=== PATIENT | female | born 1955 | race Caucasian/White ===

== ENCOUNTER 2016-12-01 05:28 | Day surgery (SDC) | payer OTHER ==
[~2016-12-01] VITALS: Ht 154.9 cm; Wt 49.5 kg
[~2016-12-01 05:28] MED LIST: ASPI81TA28 PO; CLOP1TAB15 PO; LACTATED RINGER'S 1000ML 1,000 ML IV SCH; LSN40 PO; LSX20 PO; NIFE30TA83 PO; TPRSR/50 PO
[2016-12-01 05:51] VITALS: BP 131/64; PULSE 88; TEMP 37.1; O2SAT 98; Ht 154.9 cm; Wt 49.5 kg
[2016-12-01] MEDS ORDERED: LACTATED RINGER'S 1000ML 1,000 ML IV SCH (06:00)
[2016-12-01] MEDS ORDERED: MIDAZOLAM HCL 1 MG/ML 2ML VIAL ONE (06:45)
[2016-12-01] MEDS ORDERED: LIDOCAINE HCL 2% 2 ML VIAL (20MG/ML) ONE (06:45)
[2016-12-01] MEDS ORDERED: PROPOFOL IV EMULSION 10 MG/ML 20 ML VIAL IV ONE (06:45)
[2016-12-01] MEDS ORDERED: FENTANYL CITRATE INJ 50 MCG/1 ML 2 ML VIAL ONE (06:45)
[2016-12-01] MEDS ORDERED: LARYING-O-JET KIT (LTA) ONE ×2 (06:55)
--- NOTE | 2016-12-01 07:25 | History and Physical ---
History & Physical Date Dec 01, 2016. Chief Complaint Tumor in my throat with dryness. History of Present Illness This 61 year old woman was previously scheduled for direct laryngoscopy with biopsy for a right supraglottic lesion on 11/17/16, but her vascular surgeon asked that this be postponed as he was unable to assess and clear her until 11/23. She has been cleared. She has a full H & P in the EHR that has , so this one will be very brief. She continues to smoke and drink excessively. She was last seen by Dr. Trey Howell at his office on 10/22/16 and the full H & P from this visit is still available for review within [facility]. She describes no increased difficulty in breathing or swallowing. Past Medical/Surgical History Medical Problems: (1) Coronary artery disease (2) Hypertension Cervical disc disease. 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 Allergies Coded Allergies: Latex1 -Allergic Contact Dermititis (Verified Allergy, Intermediate, SKIN BLISTERS, 12/01/16) Acetaminophen (Unverified Adverse Reaction, Mild, AFFECTS LIVER FUNCTION, 12/01/16) Oxycodone (Unverified Adverse Reaction, Mild, VOMITING, 12/01/16) Home Medications Scheduled Aspirin (Aspirin Ec), 81 MG PO QAM Clopidogrel (Plavix), 75 MG PO QAM Furosemide (Furosemide), 20 MG PO QAM Lisinopril (Lisinopril), 20 MG PO QAM Metoprolol Succinate (Metoprolol Succinate ER), 100 MG PO QAM Nifedipine Ext Rel (Procardia Xl Ext Rel), 30 MG PO QAM Physical Examination Skin: warm/dry, no rash Eyes: normal inspection, EOMI, sclerae normal ENT: normal ENT inspection, pharynx normal Head: normocephalic, atraumatic Neck: supple, no adenopathy, trachea midline Respiratory/Chest: lungs clear, normal breath sounds, no respiratory distress Cardiovascular: regular rate, rhythm, no edema, no murmur Abdomen / GI: normal bowel sounds, non tender Back: normal inspection Extremities: normal inspection, normal range of motion Neurologic/Psych: no motor/sensory deficits, alert, normal reflexes, oriented x 3 Addiitonal Comments: Right supraglottic lesion. ASA Classification: ASA Class IV Plan of Treatment She will require direct laryngoscopy with biopsy. Anesthesia is aware of cardiac and vascular problems, and an A-line has already been placed.
[2016-12-01] MEDS ORDERED: ALBUT/IPRATROP 3MG/0.5MG NEB 3 ML VIAL ONE (07:27)
[2016-12-01] MEDS ORDERED: EpINEphrine HCL INJ 1 MG/ML 5ML SYRINGE ONE (07:38)
--- NOTE | 2016-12-01 08:08 | [facility] Post Operative Brief Note ---
Immediate Operative Summary Operative Date Dec 01, 2016. Pre-Operative Diagnosis Right supraglottic lesion Post-Operative Diagnosis Right supraglottic lesion Procedure(s) Performed Direct Laryngoscopy with Biopsy of Right Supraglottic Lesion Surgeon Dr. Howell Wet Chemistry Analyst Surgeon(s) None. Estimated Blood Loss 1 CC Findings Fungating right supraglottic mass not involving the right true vocal cord, but involving the right false cord from just 1-2 mm posterior to the epiglottis to 1 -2 mm from the vocal process and extending superiorly almost to the AE fold. Specimens Frozen Specimen: Right supraglottic mass, out of room at 0753 Permanent Specimen A: Right suprglottic mass Anesthesia General via ET intubation (#6 tube) Complication(s) None Disposition Surgical ICU
--- NOTE | 2016-12-01 08:18 | [facility] Operative Report ---
Operative Report Operative Date Dec 01, 2016. Pre-Operative Diagnosis Right supraglottic lesion Post-Operative Diagnosis Right supraglottic lesion Procedure(s) Performed Direct Laryngoscopy with Biopsy of Right Supraglottic Lesion Surgeon Dr. Howell Vp Respiratory Surgeon(s) None. Estimated Blood Loss 1 CC Findings A) Right supraglottic fungating lesion without involvement of the right true vocal cord. The tumor extends from 1-2 mm from the epiglottis anteriorly to 1- 2 mm from the vocal process posteriorly. The superior extent is to the AE fold. B) The tongue base, vallecula, epiglottis, piriform sinuses, post-cricoid area , and glottis are all without evidence of tumor. Specimens Frozen Specimen: Right supraglottic mass, out of room at 0753 Permanent Specimen A: Right suprglottic mass Anesthesia General via ET intubation (#6 tube) Complication(s) None Disposition Surgical ICU Indications 61 year old woman with right supraglottic mass first detected on CT scan and confirmed via flexible fiberoptic endoscopy on 10/22/16. Description of Procedure Following uneventful intubation with a #6 endotracheal tube, the patient was turned 90 degrees. The upper gums (she was edentulous for upper teeth) were protected with a rubber tooth guard. The anterior commissure laryngoscope was coated with KY jelly and easily positioned to view the following structures: A) Right supraglottic fungating lesion without involvement of the right true vocal cord. The tumor extends from 1-2 mm from the epiglottis anteriorly to 1- 2 mm from the vocal process posteriorly. The superior extent is to the AE fold. B) The tongue base, vallecula, epiglottis, piriform sinuses, post-cricoid area , and glottis are all without evidence of tumor. An upbiting and straight cupped forceps were used to obtain tissue for frozen and permanent sections. Frozen section confirmed high suspicion for squamous cell carcinoma. There was minimal bleeding, and the anterior commissure scope and rubber tooth guard were removed. There was no evident trauma to lower teeth, gums, or lips. Patient was extubated in the OR and transported to in no apparent distress and with no stridor. I attest to the content of the Intraoperative Record and any orders documented therein. Any exceptions are noted below.
[2016-12-01] MEDS ORDERED: SODIUM CHLORIDE 0.9% 1000ML 1,000 ML IV SCH (08:22)
--- NOTE | 2016-12-01 08:22 | Discharge Instructions ---
Discharge Instructions Date of Service Dec 01, 2016. 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 Discharge Goals Goal(s): Decrease discomfort Activity Recommendations Activity Limitations: resume your previous activity Lifting Limitations: none Exercise/Sports Limitations: none May Resume Sexual Activity: when tolerated Shower/Bathe: no limitations Driving or Machine Use: resume 1 day after discharge . Instructions / Follow-Up Instructions / Follow-Up Please call Dr. Howell's office on 12/02/16 to make an appointment for 12/09/16. Current Hospital Diet Patient's current hospital diet: Discharge Diet Recommended Diet: Full Liquid Diet Procedures Procedures Performed: Direct Laryngoscopy with Biopsy of Right Supraglottic Lesion Pending Studies Studies pending at discharge: no Medical Emergencies . Who to Call and When: Medical Emergencies: If at any time you feel your situation is an emergency, please call 911 immediately. . Non-Emergent Contact Non-Emergency issues call your: Primary Care Provider Call Non-Emergent contact if: you have a fever . . "Provider Documentation" section prepared by Trey Howell. . VTE Core Measure Inpt VTE Proph given/why not?: SCD's
[2016-12-01] MEDS ORDERED: ONDANSETRON INJ 2 MG/ML 2 ML VIAL IV PRN ×2 (08:30→09:00)
--- NOTE | 2016-12-01 08:56 | Anesthesiology Progress Note ---
Anesthesia Post Op Note Date & Time Dec 01, 2016 at 08:56 Vital Signs Pain Intensity: 0 Vital Signs Past 12 Hours Date Time Temp Pulse Resp B/P (MAP) Pulse Ox O2 Delivery O2 Flow Rate FiO2 12/01/16 08:52 36.6 12/01/16 08:41 83 16 12/01/16 08:41 83 16 118/95 88 12/01/16 08:36 16 12/01/16 08:36 86 16 122/91 12/01/16 08:31 85 18 147/73 95 12/01/16 08:31 85 18 12/01/16 08:26 87 17 12/01/16 08:26 87 17 139/66 95 12/01/16 08:25 151/71 12/01/16 08:22 138/103 12/01/16 08:21 94 17 100 12/01/16 08:21 93 17 12/01/16 08:17 83/49 12/01/16 08:16 142 17 100 12/01/16 08:16 84 17 12/01/16 08:11 84 19 131/50 97 12/01/16 08:11 84 19 12/01/16 08:08 90/60 12/01/16 08:07 80/59 12/01/16 08:06 82 12 100 12/01/16 08:06 82 12 12/01/16 08:06 36.7 82 16 90/60 100 Oxymask 10 12/01/16 05:51 37.1 88 20 131/64 (86) 98 Room Air Notes Mental Status: alert / awake / arousable, participated in evaluation Pt Amnestic to Procedure: Yes Nausea / Vomiting: adequately controlled Pain: adequately controlled Airway Patency, RR, SpO2: stable & adequate BP & HR: stable & adequate Hydration State: stable & adequate Anesthetic Complications: no major complications apparent The patient did well. She was hemodynamically stable throughout and is now awake and comfortable.
[2016-12-01] MEDS ORDERED: MEPERIDINE HCL 25 MG/ML CARP IV PRN (09:00)
[2016-12-01] MEDS ORDERED: FENTANYL CITRATE INJ 50 MCG/1 ML 2 ML VIAL IV PRN (09:00)
[2016-12-01] MEDS ORDERED: ATROPINE SULFATE 0.1 MG/ML 5ML SYR IV PRN (09:00)
[2016-12-01] MEDS ORDERED: NALOXONE HCL 0.4 MG/1 ML VIAL/CARP IV PRN (09:00)
[2016-12-01] MEDS ORDERED: LABETALOL HCL IV 5 MG/ML 20ML IV PRN (09:00)
[2016-12-01] MEDS ORDERED: FLUMAZENIL 0.1 MG/1 ML 10 ML VIAL IV PRN (09:00)
[2016-12-01] MEDS ORDERED: HYDROmorphone INJ 1 MG/ML SYR IV PRN (09:00)
[2016-12-01] MEDS ORDERED: PHENYLEPHRINE 100MCG/ML 5ML SYR IV PRN (09:00)
[2016-12-01] MEDS ORDERED: EpHEDrine SULFATE INJ 50 MG/ML AMP IV PRN (09:00)
[2016-12-01 09:05] VITALS: BP 102/52; PULSE 83; TEMP 37.2; O2SAT 98
[2016-12-01 09:35] VITALS: BP 112/66; PULSE 89; O2SAT 97
[2016-12-01 10:05] VITALS: BP 118/84; PULSE 90; TEMP 37.2; O2SAT 97
[2016-12-01] MEDS ORDERED: SUCCINYLCHOLINE 100MG/5ML SYR IV ONE (14:21)
[2016-12-01] MEDS ORDERED: DEXAMETHASONE SOD INJ 4 MG/ML VIAL ONE (14:21)
[2016-12-01] MEDS ORDERED: ONDANSETRON INJ 2 MG/ML 2 ML VIAL ONE (14:21)
[2016-12-17] MEDS ORDERED: CYCL5TAB PO (09:25)
[2016-12-17] MEDS ORDERED: HYDR1SOL30 PO (09:25)
== END 2016-12-01 10:10 | disposition home or self-care (01) ==
LOC: C.ACU 05:28
PROVIDERS: ATTEND Otolaryngology
DX: C32.1 Malignant neoplasm of supraglottis (principal); I25.10 Atherosclerotic heart disease of native coronary artery without angina pectoris; I10 Essential (primary) hypertension; I65.21 Occlusion and stenosis of right carotid artery; I65.02 Occlusion and stenosis of left vertebral artery; Z79.82 Long term (current) use of aspirin; Z79.02 Long term (current) use of antithrombotics/antiplatelets; Z79.899 Other long term (current) drug therapy

== ENCOUNTER → 2017-03-17 | Outpatient (CLI) | payer OTHER ==
[~2017-03-17] MED LIST changes: +ATV5X PO; +DRGTP12; +FENT25DI10 TD; +HYDR1SOL10 PO; -LACTATED RINGER'S 1000ML 1,000 ML IV SCH
[2017-03-17 13:40] VITALS: BP 107/71; PULSE 84; TEMP 36.9; O2SAT 100
--- NOTE | 2017-03-17 16:12 | Radiation Oncology Follow-Up ---
Radiation Oncology Follow-Up Date of Visit Mar 17, 2017. Reason For Visit One-month follow-up a cancer survivorship care plan Radiation Completion Date 02/17/17 Diagnosis (1) Carcinoma of supraglottis Status: Acute Onset Date: 12/01/2016 Histology Subtype: squamous cell carcinoma Stage: l Permanent Comment: Right ear discomfort Status post neck ultrasound 09/29/[address] 10/14/2016 Right supraglottic mass Status post direct laryngoscopy and biopsies 12/01/2016 Well-differentiated squamous cell carcinoma Status post PET/CT 12/16/2016 Clinical stage cT1 [id number] Status post completion of radiation therapy 02/17/2017. She received 6996 cGy Last Edited By: Samina Alaniz on Feb 25, 2017 11:41 History of Present Illness Ms. Hardy has a smoking history who recently started complaining of right ear pain for the last several months. She did complain of a nodule behind her ear so she was referred for an ultrasound of the right neck on 09/29/2016 which revealed no evidence of malignant disease. She then underwent a CT of the neck on 10/14/2016 which revealed mild thickening and enhancement of the supraglottic soft tissues as well as 80% narrowing of the right internal carotid artery. The patient was seen by Dr. Trey Howell from ENT and he did perform a NPL on 10/22/2016 which revealed a fungating lesion involving the right supraglottic larynx which extended from the epiglottis back towards the vocal process. Dr. Howell then brought the patient to the operating room for direct laryngoscopy with biopsy on 12/01/2016 which confirmed a well- differentiated invasive squamous cell carcinoma. The patient underwent a PET/ CT scan on 12/16/2016 which revealed an FDG avid lesion in the right supraglottic airway consistent with history of proven squamous cell carcinoma and no evidence of distant metastatic disease. Dr. Howell reviewed the pathology and imaging studies with Ms. Hardy in advise against surgical resection and recommended consideration of radiation therapy with or without chemotherapy. The patient is scheduled to see Dr. William Beckham for medical oncology on 12/23/2016 for a medical oncology consultation. We are now seeing the patient in consultation discuss role of radiation therapy. Status post completion of radiation therapy 02/17/2017. She received 6996 cGy. Interim History She has had steady improvement of her voice quality over the past few weeks. She denies dysphagia. She has a discomfort in the right neck below the ear. She gives a level III. Her appetite is good and weight is stable. She had been treated for thrush which she felt currently is controlled. Denies alteration of taste. She did require initiation of pain management while on treatment. She currently does not have a follow-up appointment with Dr. Howell. Allergies Coded Allergies: Latex1 -Allergic Contact Dermititis (Verified Allergy, Intermediate, SKIN BLISTERS, 01/08/17) Acetaminophen (Unverified Adverse Reaction, Mild, AFFECTS LIVER FUNCTION, 01/08/17) Oxycodone (Unverified Adverse Reaction, Mild, VOMITING, 01/08/17) Home Medications Scheduled Aspirin (Aspirin Ec), 81 MG PO QAM Clopidogrel (Plavix), 75 MG PO QAM Furosemide (Furosemide), 20 MG PO QPM Lisinopril (Lisinopril), 20 MG PO QAM Metoprolol Succinate (Metoprolol Succinate ER), 100 MG PO QAM Nifedipine Ext Rel (Procardia Xl Ext Rel), 30 MG PO QAM Scheduled PRN Fentanyl (Duragesic), 25 MCG TD Q72H PRN for Pain Hydrocodone-Acetaminophen (Hydrocodone/Acetami 7.5/325MG 15ML), 15 ML PO Q4-6H PRN Review of Systems Gastrointestinal: Symptoms: WNL Oral: Symptoms: Scant Saliva/Dry Mouth Other Oral Symptoms: Cracks in each corner of mouth;Using biotene;Altered taste persists; Respiratory: Symptoms: SOB With Exertion, Productive Cough Other Respiratory: Clear sputum; Urinary: Symptoms: WNL Skin: Symptoms: No Problems Other Skin Symptoms: Slight hyperpigmentation of anterior neck;Silvadene cr. PRN; Additional Notes: She completed a distress management report and answered "no" to all questions other than she is concerned about pain and her medical treatment choices. Pain management will be addressed today. Physical Exam Vital Signs Date Time Temp Pulse Resp B/P (MAP) Pulse Ox O2 Delivery O2 Flow Rate FiO2 03/17/17 13:40 36.9 84 12 107/71 100 Fatigue: None General Appearance: no apparent distress Eyes: normal inspection, EOMI ENT: normal ENT inspection, hearing grossly normal, TMs normal (minimal cerumen ), pharynx normal (mild white coat on tongue) Neck: no adenopathy, thyroid normal Respiratory/Chest: lungs clear, no respiratory distress, no accessory muscle use, + decreased breath sounds Cardiovascular: regular rate, rhythm, no gallop, no murmur Extremities: no pedal edema Neurologic/Psychiatric: no motor/sensory deficits, alert, normal mood/affect Skin: warm/dry Lymphatic: no adenopathy Pain Management Patient Reports Pain: Yes Pain Management Plan See assessment and plan. Laboratory Laboratory Results: were reviewed, and pertinent findings noted below Laboratory Comments: Test 03/17/17 14:40 Thyroid Stimulating Hormone (TSH) 0.760 uIu/ml (0.300-4.500) Pathology Pathology Results: not applicable Imaging Imaging Studies: not applicable Assessment & Plan Plan: Patient is also seen and examined by Dr. Beckham. We'll now decrease her fentanyl patch to 12 g per hour. She was given one box of 5 and no refill. We 'll plan that this medicine will then stop after this prescription; she was instructed that she will no longer recieve pain medications from our department after she completes this prescription due to the fact that her symptoms should have subsided. If she continues to require pain medications after she completes our prescriptions, she will need to see her PCP or pain management which we would be willing to assist her with getting the appointment. She was given 1 more prescription for hydrocodone AP 7.5/325, 15 mLs every 6 hours. The volume prescribed was 480 mL. They'll be no further refills on this medication. She has been instructed to make an appointment with ENT. She also needs to make an appointment to follow-up with vascular surgery. Her daughters here with her today and will help with setting up these arrangements. At the beginning of treatment her TSH was slightly abnormal. This was rechecked today. She'll be notified as to the results. We asked her to return to our office in 4 months. We'll plan to do an NPL examination at that time. Today we completed a cancer survivorship care plan. A copy of the document was given the patient. She was given a survivorship booklet. She may call our office if she has any questions or concerns in the interim. Assessment & Plan (Attending) ADDENDUM: I agree with note created by Samina Alaniz PA-C. I reviewed the patient's chart and information with her. I have examined and evaluated the patient. I reviewed relevant clinical information and answered the patient's and /or family's questions. SALES ADVISOR Total Time In Follow-Up I spent 20 minutes speaking to the patient and performing examination. I spent 20 minutes reviewing information, preparing the survivorship document and completing this note. Total Time (Attending) In Follow-Up I spent 15 minutes examining and counseling the patient. SALES ADVISOR Copy To Trey Howell M.D.; Paola Wilson M.D.
== END | disposition home or self-care (01) ==
LOC: C.ONC 13:36
PROVIDERS: ATTEND Physician Assistant Medical
DX: Z08 Encounter for follow-up examination after completed treatment for malignant neoplasm (principal); Z92.3 Personal history of irradiation; Z85.89 Personal history of malignant neoplasm of other organs and systems

== ENCOUNTER → 2017-06-25 | Outpatient (CLI) | payer OTHER ==
[~2017-06-25] MED LIST changes: -ATV5X PO; -DRGTP12; -FENT25DI10 TD; -HYDR1SOL10 PO; -LSN40 PO; +OPTIRAY 320 IV PRN
--- NOTE | 2017-06-25 12:48 | DIAGNOSTIC IMAGING REPORT ---
SOFT TISSUE NECK WITH CLINICAL HISTORY: 62 years-old Female presenting with right-sided neck cancer, pain in the left side around the ear, jaw, and neck. TECHNIQUE: Multidetector CT of the neck was performed after the administration of intravenous contrast. IV contrast: 94 mL of Optiray 320. A dose lowering technique was used consistent with the principles of ALARA (as low as reasonably achievable). COMPARISON: PET/CT from 12/16/2016. CT DOSE (mGy.cm): The estimated cumulative dose is 1447.07. FINDINGS: Lens Assistant topogram: Unremarkable. Apposition of the vocal folds may be due to phonation though there is asymmetric enhancement of the right glottis (series 5 image 241). There is no effacement of the preepiglottic fat. The paraglottic fat is also grossly preserved. No effacement of the valleculae. Piriform sinuses symmetric. No erosion of the thyroid or cricoid cartilage. Superficial soft tissues along the anterior neck demonstrate mild infiltration and mild skin thickening. This tracks along the superficial and deep aspects of the platysma, likely indicating post radiation change. No lymphadenopathy. Aerated secretions in the left maxillary sinus with mild mucosal thickening in ethmoid air cells. Limited intracranial dilation within normal limits. Orbits normal. Vasculature patent though significant calcified atherosclerotic plaque burden evident in the bilateral common and internal carotid arteries. This results in approximately 50% stenosis of the bilateral proximal ICAs. Emphysematous changes at the lung apices with mild smooth interlobular septal thickening. Degenerative changes of the cervical spine. IMPRESSION: 1. Apposition of the vocal folds may be due to phonation. However, suspicious asymmetric enhancement of the right glottis raising concern for a focal lesion in this site. This corresponds to the region of FDG avidity on prior PET from December. No lymphadenopathy. 2. Nonspecific superficial infiltration and skin thickening along the anterior neck may represent post radiation change. 3. Approximately 50% stenosis of the bilateral proximal internal carotid arteries. Electronically signed by: Gunner Mcgrath M.D. 06/25/2017 12:47 PM Dictated Date/Time: 06/25/2017 12:40 PM
--- NOTE | 2017-06-25 12:48 | DIAGNOSTIC IMAGING REPORT ---
HEAD CT WITH AND WITHOUT INTRAVENOUS CONTRAST HISTORY: Left-sided EAR PAIN, NECK PAIN TECHNIQUE: Multiaxial CT images of the head were performed both before and after the intravenous administration of contrast. COMPARISON STUDY: PET CT 12/16/2016. FINDINGS: Moderate mucosal thickening and a small amount of fluid and bubbly secretions within the left maxillary sinus. This is consistent with acute on chronic sinusitis. The mastoid air cells are clear. The ventricles and sulci are within normal limits for age. There is no mass, hematoma, midline shift, acute infarct. No abnormal enhancement within the brain. IMPRESSION: 1. No evidence for intracranial metastatic disease. 2. No acute intracranial abnormality. 3. Acute on chronic left maxillary sinusitis. Electronically signed by: Jesús Cohen M.D. 06/25/2017 12:47 PM Dictated Date/Time: 06/25/2017 12:41 PM
== END | disposition home or self-care (01) ==
LOC: C.CTS 11:47
PROVIDERS: ATTEND Physician Assistant Medical
DX: C32.1 Malignant neoplasm of supraglottis (principal); H92.01 Otalgia, right ear; M54.2 Cervicalgia; J01.01 Acute recurrent maxillary sinusitis

== ENCOUNTER → 2017-07-05 | Outpatient (CLI) | payer OTHER ==
[~2017-07-05] MED LIST changes: -OPTIRAY 320 IV PRN
--- NOTE | 2017-07-05 12:52 | DIAGNOSTIC IMAGING REPORT ---
PET/CT SKULL-THIGH CLINICAL HISTORY: 62 years-old Female presenting with HEAD NECK CANCER, right supraglottic squamous cell carcinoma. TECHNIQUE: PET/CT was performed from the vertex through the proximal thighs following the intravenous administration of 12.271 mCi of F18-FDG. Blood glucose level 85 mg/dL. The injection was performed at 7:42 a.m. and imaging began at 9:[address] was performed for attenuation correction purposes and anatomic localization. COMPARISON: CTA neck from 06/25/2017 and PET/CT from 12/16/2016. CT DOSE (mGy.cm): The estimated cumulative dose is 207.29. FINDINGS: Head and neck: Apparent photopenia in the left parietal-occipital region. This does not have a correlate on recent CT head from 06/25/2017 and may represent a prominent sulcus in this region. There is mild FDG avidity in the region of the right glottis (max SUV 5.65, previously max SUV 6.74). FDG avidity extends to the posterior aspect of the glottis. There is mild stenosis of the glottis as seen on recent contrast enhanced CT of the neck. No FDG avid cervical lymphadenopathy. Chest: Normal thyroid and thoracic inlet. No FDG avid axillary, supraclavicular, or mediastinal lymphadenopathy. Evaluation of the jeanna on anatomic imaging limited without intravenous contrast. Atherosclerosis of the aorta. Normal heart size. Coronary artery calcification. No pericardial or pleural effusion. No FDG avid focal infiltrate or nodule. Airways patent. Abdomen and pelvis: Normal physiologic distribution of radiotracer in the gastrointestinal and genitourinary tracts. No FDG avid lymphadenopathy or mass lesion. Musculoskeletal: No FDG-avid or destructive osseous lesion. IMPRESSION: 1. Interval decrease in focal FDG avidity along the right glottis, which is concerning for residual disease. Direct visualization to be considered. No FDG avid lymphadenopathy or metastatic disease. Electronically signed by: Gunner Mcgrath M.D. 07/05/2017 12:51 PM Dictated Date/Time: 07/05/2017 12:28 PM
== END | disposition home or self-care (01) ==
LOC: C.PET 07:00
PROVIDERS: ATTEND Physician Assistant Medical
DX: C32.1 Malignant neoplasm of supraglottis (principal)

== ENCOUNTER 2017-10-10 02:16 | Emergency (ER) | payer OTHER ==
[~2017-10-10] VITALS: Ht 152.4 cm; Wt 44.4 kg
[~2017-10-10 02:16] MED LIST changes: +GABA-113 PO; +IBUP-103 PO
[2017-10-10 02:21] VITALS: TEMP 37.5; Ht 152.4 cm; Wt 44.4 kg
[2017-10-10] MEDS ORDERED: KETOROLAC TROMETHAMINE 60 MG/2 ML VIAL IM STA (03:23)
[2017-10-10] MEDS ORDERED: AMOXICILLIN/CLAVULANATE SUSP 400 MG/5 ML PO ONE (03:30)
[2017-10-10] MEDS ORDERED: AGMUDL4005 PO (03:48)
[2017-10-10 05:37] VITALS: BP 135/71; PULSE 96; O2SAT 97
--- NOTE | 2017-10-11 02:45 | EMERGENCY ROOM VISIT NOTE ---
History First contact with patient: 03:08 Chief Complaint: SORETHROAT Stated Complaint: SORETHROAT History of Present Illness The patient is a 62 year old female who presents to the Emergency Room with complaints of right-sided sore throat pain as well as right ear pain for the past several months. The patient has a history of throat cancer and completed radiation earlier in the year. She is followed very closely by the [facility], and has seen their cancer panel as well as her ENT multiple times. The patient was previously on fentanyl and liquid opioids for pain during the radiation treatment. The patient has subsequently been weaned off these medications. She currently follows with the pain clinic for her chronic pain. She has not had fevers or chills. No difficulty breathing from baseline. The patient has an upcoming appointment with her primary care physician in the next 2-3 days. She rates her current discomfort in 10/15. She states her symptoms worsened tonight, prompting her visit to the ER. Review of Systems More than 10 systems were reviewed and otherwise negative with the exception of history of present illness. Past Medical/Surgical History Medical Problems: (1) Coronary artery disease (2) Hypertension Family History FH: cancer FH: diabetes mellitus FH: heart disease FH: hypertension FH: lung disease Social History Smoking Status: Current Every Day Smoker Alcohol Use: heavy Marital Status: Housing Status: lives with significant other Occupation Status: unemployed Current/Historical Medications Scheduled Amoxicillin/Clavulanate Potas (Augmentin 400MG/5ML), 10 ML PO BID Aspirin (Aspirin Ec), 81 MG PO QAM Clopidogrel (Plavix), 75 MG PO QAM Furosemide (Furosemide), 20 MG PO QPM Gabapentin (Neurontin), 300 MG PO QPM Gabapentin (Neurontin), 600 MG PO BID Ibuprofen Tab (Advil), 400 MG PO TID Metoprolol Succinate (Metoprolol Succinate ER), 100 MG PO QAM Nifedipine Ext Rel (Procardia Xl Ext Rel), 30 MG PO QAM Physical Exam Vital Signs Date Time Temp Pulse Resp B/P (MAP) Pulse Ox O2 Delivery O2 Flow Rate FiO2 10/10/17 05:37 96 22 135/71 97 Room Air 10/10/17 04:37 97 20 137/74 96 Room Air 10/10/17 02:24 98 Room Air 10/10/17 02:21 37.5 90 138/88 91 Room Air Physical Exam VITALS: Vitals are noted on the nurse's note and reviewed by myself. Vital signs stable. GENERAL: Well-developed, well-nourished, white female, who is in no acute distress and resting comfortably. Patient is cooperative with the examination. HEAD: Normocephalic atraumatic. EARS: External ear normal. External auditory canals clear, tympanic membranes pearly leigh without erythema or effusion bilaterally. MOUTH: Mucous membranes moist. Tonsils are not enlarged. Pharynx without erythema, blood, or exudate. Uvula midline. Airway patent. NECK: Supple without nuchal rigidity. No lymphadenopathy. No thyromegaly. Cervical spine is nontender. HEART: Regular rate and rhythm without murmurs gallops or rubs. LUNGS: Coarse wheezing and rhonchi throughout Medical Decision & Procedures Medications Administered Medications (Trade) Dose Ordered Sig/Pavithra Route Start Time Stop Time Status Last Admin Dose Admin Amoxicillin/ Clavulanate Potassium (Augmentin Susp) 10 ml NOW ONCE PO 10/10/17 03:30 10/10/17 03:31 DC 10/10/17 04:32 10 ML Ketorolac Tromethamine (Toradol Inj) 60 mg NOW STAT IM 10/10/17 03:23 10/10/17 03:27 DC 10/10/17 04:32 60 MG ED Course Physical exam and history were performed. Nursing notes, EMR, and Medication List were personally reviewed. Patient appears to have right-sided neck and ear pain that is evidently worse tonight than normal. The patient is followed through the [facility], and I was able to review her [facility] records. The patient does have an upcoming appointment with her ENT. 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 The patient is no longer on opioids, and pain management will not prescribe these to her as she has a history of chronic alcoholism. Despite her history of throat cancer she continues to smoke tobacco on a daily basis. She was recently started on gabapentin. On examination the patient appears nontoxic and essentially at her baseline. She has had multiple recent imaging studies including PET scans that decreased my suspicion for a return of her cancer. This seems to be most in correlation with her chronic pain, and she is quite frustrated that they are taking her off the opioids. I discussed options of care with the patient, who evidently has a hard time swallowing pills. I did give her IM Toradol here in the department, which did significantly help her discomfort. I will also give the patient a short course of Augmentin to help cover for occult infection such as sinusitis. The patient was asked to keep her upcoming appointments with her specialists. She was otherwise invited back to the ER with any new, worsening, or concerning symptoms. The chart was completed utilizing [employer] Speech Voice Recognition Software. Grammatical errors, random word insertions, pronoun errors, and incomplete sentences are an occasional consequence of this system due to software limitations, ambient noise, and hardware issues. Any formal questions or concerns about the content, text, or information contained within the body of this dictation should be directly addressed to the provider for clarification. . Medical Decision Differential diagnosis: Etiologies such as viral syndrome, tonsillitis, streptococcal pharyngitis, mononucleosis, peritonsillar abscess, retropharyngeal abscess, otitis, pneumonia , influenza, as well as others were entertained. Impression Primary Impression: Sore throat Departure Information Dispostion Home / Self-Care Condition GOOD Prescriptions Amoxicillin/Clavulanate Potas (AUGMENTIN 400MG/5ML) 400 Mg/5 Ml Susp 10 ML PO BID for 7 Days, #140 ML Prov: Con Tracy PA-C 10/10/17 Referrals Paola Wilson M.D. (PCP) Forms HOME CARE DOCUMENTATION FORM, IMPORTANT VISIT INFORMATION Patient Instructions My [facility] Additional Instructions You were seen and evaluated today on an emergency basis only. This is not a substitute for, or an effort to provide, complete comprehensive medical care. It is not possible to recognize and treat all injuries or illnesses in a single emergency department visit. For this reason it is recommended that you followup with your primary care physician and ENT for ongoing care and evaluation. Call tomorrow morning to help make the appropriate appointments. Continue your pain medications as previously instructed. Follow with your specialists for this. Take Augmentin 10 mL's twice daily for the next 7 days. You are welcome to return to the emergency department anytime with new, worsening, or concerning symptoms.
== END 2017-10-10 05:39 | disposition home or self-care (01) ==
LOC: EDBD 02:16 → C.EDB 02:17
DX: R07.0 Pain in throat (principal); H92.01 Otalgia, right ear; I10 Essential (primary) hypertension; I25.10 Atherosclerotic heart disease of native coronary artery without angina pectoris; Z85.819 Personal history of malignant neoplasm of unspecified site of lip, oral cavity, and pharynx; Z79.82 Long term (current) use of aspirin; Z79.899 Other long term (current) drug therapy

== ENCOUNTER 2017-10-20 00:56 | Emergency (ER) | payer OTHER ==
[~2017-10-20] VITALS: Ht 152.4 cm; Wt 44.6 kg
--- NOTE | 2017-10-20 01:07 | EMERGENCY ROOM VISIT NOTE ---
History Report prepared by Otto: Dharmesh Flaherty Under the Supervision of: Dr. Adamaris Donnelly D.O. First contact with patient: 00:58 Chief Complaint: FALL Stated Complaint: ARM PAIN/FALL History of Present Illness The patient is a 62 year old female who presents to the Emergency Room with complaints of constant right shoulder pain following a fall that occurred tonight. The patient states that she was walking to the kitchen tonight and became lightheaded. She notes that when she became lightheaded, she lost her balance and fell. She reports that she did not lose consciousness during the fall and she states that she is unsure if she hit her head. She also complains of right knee pain. She denies any right elbow pain, right forearm pain, and any other pain. She rates her shoulder pain as an 8/10. The patient notes that she did not take anything for her pain today. She reports that she normally has no pulse and blood pressure in her right arm. Per EMS, the patient drinks alcohol frequently. Source of History: patient, EMS Onset: tonight Position: shoulder (right) Symptom Intensity: 8/10 Timing: constant Associated Symptoms: No LOC Note: The patient also complains of lightheadedness and right knee pain. She denies any right elbow pain, right forearm pain, and any other pain. Review of Systems See HPI for pertinent positives & negatives. A total of 10 systems reviewed and were otherwise negative. Past Medical & Surgical Medical Problems: (1) Coronary artery disease (2) Hypertension Family History FH: cancer FH: diabetes mellitus FH: heart disease FH: hypertension FH: lung disease Social History Smoking Status: Current Every Day Smoker Alcohol Use: heavy Marital Status: Housing Status: lives with family Occupation Status: employed Current/Historical Medications Scheduled Aspirin (Aspirin Ec), 81 MG PO QAM Clopidogrel (Plavix), 75 MG PO QAM Furosemide (Furosemide), 20 MG PO QPM Gabapentin (Neurontin), 800 MG PO TID Ibuprofen Tab (Advil), 400 MG PO TID Metoprolol Succinate (Metoprolol Succinate ER), 100 MG PO QAM Nifedipine Ext Rel (Procardia Xl Ext Rel), 30 MG PO QAM Scheduled PRN Albuterol Hfa (Ventolin Hfa), 2 PUFFS INH Q6H PRN for SOB/Wheezing Allergies Coded Allergies: Latex1 -Allergic Contact Dermititis (Verified Allergy, Intermediate, SKIN BLISTERS, 10/20/17) Acetaminophen (Unverified Adverse Reaction, Mild, AFFECTS LIVER FUNCTION, 10/20/17) Oxycodone (Unverified Adverse Reaction, Mild, VOMITING, 10/20/17) Physical Exam Vital Signs Date Time Temp Pulse Resp B/P (MAP) Pulse Ox O2 Delivery O2 Flow Rate FiO2 10/20/17 06:29 71 16 124/62 98 10/20/17 05:30 62 16 114/52 97 Room Air 10/20/17 03:36 69 16 111/53 98 Room Air 10/20/17 02:16 72 16 132/88 98 Room Air 10/20/17 01:09 66 10/20/17 01:09 36.8 67 18 124/56 96 Room Air Physical Exam GENERAL: alert, well appearing, well nourished, no distress, non-toxic, appears older than stated age, poor dentition. Dysphonia noted which the patient states is chronic due to prior throat cancer and subsequent surgery. HEAD: normal cephalic, atraumatic EYE EXAM: normal conjunctiva, PERRL and EOM's grossly intact OROPHARYNX: no exudate, no erythema, lips, buccal mucosa, and tongue normal and mucous membranes are moist. No mucocutaneous lesions. EARS: TMs clear b/l NECK: supple, no nuchal rigidity, no adenopathy, non-tender CHEST: stable to compression anteriorly and posteriorly LUNGS: clear to auscultation. Normal chest wall mechanics. Diminished breath sounds, no wheezes, rhonchi, and rales. HEART: no murmurs, S1 normal and S2 normal ABDOMEN: abdomen soft, non-tender, normo-active bowel sounds, no masses, no rebound or guarding. PELVIS: stable to compression anteriorly and posteriorly BACK: Back is symmetrical on inspection and there is no deformity, no midline tenderness, no CVA tenderness. UPPER EXTREMITIES: Decreased radial pulse which patient states is known and chronic, normal sensory exam, no bony tenderness to right wrist and right elbow , contusion noted to the proximal right upper extremity, tenderness to palpation in the area of the contusion, no obvious deformity at the shoulder, mild tenderness with palpation over humeral head, no tenderness along distal clavicle or AC joint. LOWER EXTREMITIES: full active and passive range of motion of all joints without tenderness to palpation. No deformities, normal pulses, small superficial abrasion and contusion noted to the right prepatellar region, right arm in TEE splint and sling and swathe from EMS. NEURO EXAM: Normal sensorium, cranial nerves II-XII grossly intact, normal speech, no gross weakness of arms, no gross weakness of legs. GCS: 15. Medical Decision & Procedures ER Provider Diagnostic Interpretation: Radiology results have been interpreted and reviewed by me. CHEST X-RAY: No cardiomegaly, effusions, wide mediastinum, focal consolidation, pneumothorax , and obvious rib fracture. PELVIS X-RAY: No acute fracture or dislocation. SHOULDER X-RAY: Distal clavicle fracture with mild displacement. No fracture of humeral head. No dislocation. HUMERUS X-RAY: No fracture or dislocation. Radiology results have been interpreted by the radiologist and reviewed by me. CT HEAD: Compared to 06/25/2017. No intracranial hemorrhage or skull fracture. Radiologist: Sandra Caba M.D. CT C SPINE: Compared to 10/14/2016. Degenerative changes without evidence of acute fracture. Soft tissue thickening in the glottic region, more prominent on the left. Nonemergent contrast- enhanced CT can further assess if indicated. Subcutaneous stranding in the anterior neck. Radiologist: Sandra Caba M.D. Laboratory Results 10/20/17 01:19 Red Blood Count 3.73, Mean Corpuscular Volume 92.0, Mean Corpuscular Hemoglobin 32.4, Mean Corpuscular Hemoglobin Concent 35.3, Mean Platelet Volume 9.1, Neutrophils (%) (Auto) 76.4, Lymphocytes (%) (Auto) 11.5, Monocytes (%) (Auto) 10.5, Eosinophils (%) (Auto) 1.2, Basophils (%) (Auto) 0.3, Neutrophils # (Auto ) 5.53, Lymphocytes # (Auto) 0.83, Monocytes # (Auto) 0.76, Eosinophils # (Auto ) 0.09, Basophils # (Auto) 0.02 10/20/17 01:19 Test 10/20/17 01:19 10/20/17 04:24 10/20/17 05:35 White Blood Count 7.24 K/uL (4.8-10.8) Red Blood Count 3.73 M/uL (4.2-5.4) Hemoglobin 12.1 g/dL (12.0-16.0) Hematocrit 34.3 % (37-47) Mean Corpuscular Volume 92.0 fL (80-100) Mean Corpuscular Hemoglobin 32.4 pg (25-34) Mean Corpuscular Hemoglobin Concent 35.3 g/dl (32-36) Platelet Count 298 K/uL (130-400) Mean Platelet Volume 9.1 fL (7.4-10.4) Neutrophils (%) (Auto) 76.4 % Lymphocytes (%) (Auto) 11.5 % Monocytes (%) (Auto) 10.5 % Eosinophils (%) (Auto) 1.2 % Basophils (%) (Auto) 0.3 % Neutrophils # (Auto) 5.53 K/uL (1.4-6.5) Lymphocytes # (Auto) 0.83 K/uL (1.2-3.4) Monocytes # (Auto) 0.76 K/uL (0.11-0.59) Eosinophils # (Auto) 0.09 K/uL (0-0.5) Basophils # (Auto) 0.02 K/uL (0-0.2) RDW Standard Deviation 38.9 fL (36.4-46.3) RDW Coefficient of Variation 11.5 % (11.5-14.5) Immature Granulocyte % (Auto) 0.1 % Immature Granulocyte # (Auto) 0.01 K/uL (0.00-0.02) Prothrombin Time 10.7 SECONDS (9.0-12.0) Prothromb Time International Ratio 1.0 (0.9-1.1) Est Creatinine Clear Calc Drug Dose 66.7 ml/min Estimated GFR () 111.6 Estimated GFR (Non- 96.3 BUN/Creatinine Ratio 15.1 (10-20) Calcium Level 8.2 mg/dl (8.5-10.1) Total Bilirubin 0.3 mg/dl (0.2-1) Aspartate Amino Transf (AST/SGOT) 32 U/L (15-37) Alanine Aminotransferase (ALT/SGPT) 19 U/L (12-78) Alkaline Phosphatase 101 U/L (45-117) Troponin I < 0.015 ng/ml (0-0.045) Total Protein 7.0 gm/dl (6.4-8.2) Albumin 3.1 gm/dl (3.4-5.0) Globulin 3.9 gm/dl (2.5-4.0) Albumin/Globulin Ratio 0.8 (0.9-2) Lipase 126 U/L (73-393) Ethyl Alcohol mg/dL 120.5 mg/dl (0-3) Bedside Hemoglobin 12.6 g/dl (12.0-16.0) Bedside Hematocrit 37 % (37-47) Bedside Sodium 126 mEq/L (135-144) Bedside Potassium 4.2 mEq/L (3.3-5.0) Bedside Chloride 83 mEq/L (101-112) Bedside Total CO2 31 mEq/l (24-31) Anion Gap 17.0 mmol/L (16-25) Bedside Blood Urea Nitrogen 8 mg/dl (7-18) Bedside Creatinine 0.6 mg/dl (0.6-1.3) Bedside Glucose (other) 83 mg/dl (70-99) Bedside Ionized Calcium (Griffin) 1.09 mmol/l (1.12-1.32) Urine Color YELLOW Urine Appearance CLEAR (CLEAR) Urine pH 6.5 (4.5-7.5) Urine Specific Dickens 1.006 (1.000-1.030) Urine Protein NEG (NEG) Urine Glucose (UA) NEG (NEG) Urine Ketones NEG (NEG) Urine Occult Blood NEG (NEG) Urine Nitrite NEG (NEG) Urine Bilirubin NEG (NEG) Urine Urobilinogen NEG (NEG) Urine Leukocyte Esterase NEG (NEG) Laboratory results per my review. Medications Administered Medications (Trade) Dose Ordered Sig/Pavithra Route Start Time Stop Time Status Last Admin Dose Admin Fentanyl Citrate (Fentanyl Inj) 25 mcg NOW STAT IV 10/20/17 02:20 10/20/17 02:23 DC 10/20/17 02:34 25 MCG Sodium Chloride 500 ml @ 999 mls/hr Q31M STAT IV 10/20/17 02:36 10/20/17 03:06 DC 10/20/17 02:36 999 MLS/HR Thiamine HCl (Vitamin B-1 Tab) 100 mg NOW STAT PO 10/20/17 02:38 10/20/17 02:40 DC 10/20/17 03:33 100 MG Folic Acid (Folvite Tab) 1 mg NOW STAT PO 10/20/17 02:38 10/20/17 02:40 DC 10/20/17 03:33 1 MG Sodium Chloride 500 ml @ 999 mls/hr Q31M STAT IV 10/20/17 04:17 10/20/17 04:47 DC 10/20/17 04:57 999 MLS/HR ECG Per My Interpretation Indication: back/shoulder pain Rate (beats per minute): 67 Rhythm: sinus rhythm Findings: Q waves (in V1-V3), no acute ischemic change, other (Normal axis, normal intervals) ED Course 0100: The patient was evaluated in room B4. A complete history and physical exam was performed. 0220: Fentanyl Citrate 25mcg IV 0236: Sodium Chloride 500 ml @ 999 mls/hr IV 0238: Folic Acid 1mg PO, Thiamin HCl 100mg PO 0305: I reevaluated and updated the patient on her results. She called her and asked that I explain results to him as well. 0417: Sodium Chloride 500 ml @ 999 mls/hr IV 0456: Upon reevaluation, the patient is feeling better. I discussed the findings and the treatment plan with the patient. She verbalizes agreement and understanding. The patient was discharged home. Medical Decision Differential diagnosis: Etiologies such as fracture, dislocation, intra-abdominal, pneumothorax, intrathoracic , intracranial, neurologic, as well as other traumatic pathologies were entertained. Patient here with close head injury secondary to fall as well as distal right clavicle fracture. Mild displacement noted. Patient kept in sling and advised to follow-up with orthopedics closely. No other acute traumatic injury noted. Small abrasion noted at right knee however patient with full range of motion and no, as well as no joint effusion. I do not suspect an occult fracture or additional significant injury. Patient with no other complaints while she was monitored here as a precaution. Patient was clinically sober however had elevated blood alcohol level consistent with her chronic usage. Patient also found to have hyponatremia which she has had previously including done at this level. Patient was given a small amount of IV fluids and multivitamins. Repeat chemistry panel showed sodium level improved. Discussed with patient close recheck of this with her family doctor. I suspect this may be a beer drinkers [place]. Patient ambulatory here with a steady gait while using single arm to help steady her. Patient had normal pulse motor and sensation distally. No other distal right upper extremity pain with palpation, trauma, no deformity. Patient is right-hand dominant unfortunately which will limit her ability to perform ADLs in the short-term. Patient states she does live with her although he is a lower extremity amputee and has some difficulties himself. Patient states they do have other close family and friends that they rely on for assistance. Patient lists Tylenol as an allergy which she states, however given her chronic alcohol use, I do not feel it is safe to give her additional anti-inflammatories. I have a low suspicion for any additional occult traumatic injury or bleeding. Patient does use antiplatelets due to history of CAD and [place]. Discussed with patient symptoms to watch and return for. Encouraged her on multiple occasions to follow closely with orthopedics as well as her family doctor. Discussed all results and limitations given need for sling in the short-term. Patient stated she was comfortable going home, verbalized understanding of all instructions, and was agreeable with plan. Head Trauma GCS Score: 15 Medication Reconcilliation Current Medication List: was personally reviewed by me Blood Pressure Screening Patient's blood pressure: Elevated blood pressure Blood pressure disposition: Elevated BP felt to be situational Impression Primary Impression: Clavicle fracture Additional Impressions: Fall Contusion of multiple sites Hyponatremia Alcohol abuse Tobacco abuse Hypokalemia Scribe Attestation The scribe's documentation has been prepared under my direction and personally reviewed by me in its entirety. I confirm that the note above accurately reflects all work, treatment, procedures, and medical decision making performed by me. Departure Information Dispostion Home / Self-Care Referrals Paola Wilson M.D. (PCP) Forms HOME CARE DOCUMENTATION FORM, IMPORTANT VISIT INFORMATION Patient Instructions My [facility] Additional Instructions Please try to drink fluids and slowly cut back on your alcohol consumption. Please also consider quitting smoking. You will need to follow-up with orthopedics regarding your collarbone fracture. Please wear the sling until your are otherwise advised by the orthopedic surgeon. Please use tylenol or ibuprofen for pain. Please call and follow-up with your family doctor to recheck your sodium. Your sodium level tonight was low but did improve with fluids. Please also have them recheck your neck given your history of cancer. Please use extra caution with moving/walking given your limitations of only having your non dominant hand to help steady you and your chronic medical conditions. Please continue your other routine medications as prescribed. If you have any other new or concerning symptoms including headaches, dizziness, vision changes, numbness/tingling, chest pain, trouble breathing, or you have any other new symptoms, please return to the ER. Problem Qualifiers Primary Impression: Clavicle fracture Encounter type: initial encounter Clavicle location: lateral end Fracture type: closed Fracture alignment: displaced Laterality: right Qualified Codes: S42.031A - Displaced fracture of lateral end of right clavicle, initial encounter for closed fracture Additional Impressions: Fall Encounter type: initial encounter Qualified Codes: W19.XXXA - Unspecified fall, initial encounter
[2017-10-20 01:09] VITALS: TEMP 36.8; Ht 152.4 cm; Wt 44.6 kg
[2017-10-20 01:30] LABS: BASO % 0.3 %; BASO ABS # 0.02 K/uL (0-0.2); EOS % 1.2 %; EOS ABS # 0.09 K/uL (0-0.5); HEMATOCRIT 34.3 % (37-47); HEMOGLOBIN 12.1 g/dL (12.0-16.0); IG# 0.01 K/uL (0.00-0.02); LYMPH % 11.5 %; LYMPH ABS # 0.83 K/uL (1.2-3.4); MEAN CORPUSCULAR HEMOGLOBIN 32.4 pg (25-34); MEAN CORPUSCULAR HGB CONC 35.3 g/dl (32-36); MEAN PLATELET VOLUME 9.1 fL (7.4-10.4); MONO % 10.5 %; MONO ABS # 0.76 K/uL (0.11-0.59); NEUT % 76.4 %; NEUT ABS # 5.53 K/uL (1.4-6.5); PLATELET COUNT 298 K/uL (130-400); RED CELL DISTRIBUTION WIDTH CV 11.5 % (11.5-14.5); RED CELL DISTRIBUTION WIDTH SD 38.9 fL (36.4-46.3); WHITE BLOOD COUNT 7.24 K/uL (4.8-10.8)
[2017-10-20] MEDS ORDERED: GABA800T PO (01:50)
[2017-10-20] MEDS ORDERED: VNTHFA/IN INH (01:51)
[2017-10-20 01:52] LABS: ALBUMIN 3.1 gm/dl (3.4-5.0); ALKALINE PHOSPHATASE 101 U/L (45-117); ALT/SGPT 19 U/L (12-78); AST/SGOT 32 U/L (15-37); BLOOD UREA NITROGEN 9 mg/dl (7-18); CALCIUM 8.2 mg/dl (8.5-10.1); CARBON DIOXIDE 27 mmol/L (21-32); GLUCOSE 74 mg/dl (70-99); LIPASE 126 U/L (73-393); POTASSIUM 3.4 mmol/L (3.5-5.1); SODIUM 121 mmol/L (136-145)
[2017-10-20] MEDS ORDERED: FENTANYL CITRATE INJ 50 MCG/1 ML 2 ML VIAL IV STA (02:20)
[2017-10-20] MEDS ORDERED: SODIUM CHLORIDE 0.9% 500ML 500 ML IV STA ×2 (02:36→04:17)
[2017-10-20] MEDS ORDERED: THIAMINE HCL 100 MG TAB PO STA (02:38)
[2017-10-20 04:37] LABS: ISTAT CREATININE 0.6 mg/dl (0.6-1.3); ISTAT IONIZED CALCIUM 1.09 mmol/l (1.12-1.32); ISTAT POTASSIUM 4.2 mEq/L (3.3-5.0)
[2017-10-20 06:29] VITALS: BP 124/62; PULSE 71; O2SAT 98
--- NOTE | 2017-10-20 07:15 | DIAGNOSTIC IMAGING REPORT ---
CT SCAN OF THE BRAIN WITHOUT IV CONTRAST CLINICAL HISTORY: Trauma. COMPARISON STUDY: CT of the brain dated 06/25/2017. TECHNIQUE: Unenhanced axial CT scan of the brain is performed from the vertex to the skull base. A dose lowering technique was utilized adhering to the principles of ALARA. CT DOSE: 638.56 mGycm FINDINGS: Brain parenchyma: There are age-related involutional changes noting mild subcortical and periventricular microangiopathic change. There is no hemorrhage, mass effect, or evidence of acute territorial ischemia by CT criteria. Champagne-white matter is preserved. No extra-axial fluid collection is seen. Ventricles, sulci, cisterns: Prominent secondary to involutional change. Intracranial vasculature: There is atherosclerotic calcification of the cavernous carotid and vertebral arteries. Calvarium: The skeletal structures are osteopenic. No depressed calvarial fracture is seen. Sinuses and mastoids: The visualized paranasal sinuses are clear. The mastoid air cells are well pneumatized. Orbits: The bony orbits are grossly intact. There is a right ocular lens implant. IMPRESSION: There is no hemorrhage, mass effect, or evidence of acute territorial ischemia by CT criteria. Electronically signed by: Anurag Harris M.D. 10/20/2017 7:13 AM Dictated Date/Time: 10/20/2017 7:11 AM
--- NOTE | 2017-10-20 07:24 | DIAGNOSTIC IMAGING REPORT ---
CERVICAL SPINE W/O CLINICAL HISTORY: 62 years-old Female presenting with trauma. TECHNIQUE: Multidetector CT of the cervical spine was performed without the use of intravenous contrast. IV contrast: None. A dose lowering technique was used consistent with the principles of ALARA (as low as reasonably achievable). COMPARISON: CTA neck from 06/25/2017. CT DOSE (mGy.cm): The estimated cumulative dose is 392.16 mGycm. 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 Effacement of the performed sinuses with soft tissue thickening of the bilateral area epiglottic folds more prominently on the left. This is incompletely evaluated without intravenous contrast. Normal cervical lordosis. Vertebral bodies maintain normal height and alignment. Intervertebral disc height loss noted mildly at C4-5 through C6-7, where there are small disc osteophyte complexes. No significant posterior bony spurring. Uncovertebral hypertrophy results in osseous neural foraminal narrowing at C4-5 greater on the right and more significantly at C5-6. No acute fracture or subluxation. Endplate changes related to degenerative disc disease evident at C5-6. Skull base intact. 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 Paraspinal musculature normal. Atherosclerosis noted. No gross evidence of lymphadenopathy allowing for noncontrast technique. Lung apices clear. IMPRESSION: 1. No acute osseous injury of the cervical spine. 2. Multilevel degenerative changes. 3. Soft tissue thickening of the aryepiglottic folds greater on the left. Given the patient's clinical history of head and neck cancer, clinical correlation is advised. Electronically signed by: Gunner Mcgrath M.D. 10/20/2017 7:23 AM Dictated Date/Time: 10/20/2017 7:13 AM
--- NOTE | 2017-10-20 07:30 | DIAGNOSTIC IMAGING REPORT ---
SINGLE VIEW CHEST CLINICAL HISTORY: Trauma. FINDINGS: An AP, portable, upright chest radiograph is compared to study dated 01/08/2017. The examination is degraded by portable technique, apical lordotic positioning, and patient rotation. The cardiomediastinal silhouette is unremarkable noting atherosclerotic calcification of the thoracic aorta. A coronary artery stent is identified. Emphysema and chronic interstitial thickening are similar to previous. No airspace consolidation, large pleural effusion, or pneumothorax is seen. The skeletal structures are osteopenic. The bony thorax is grossly intact. Vascular calcifications are noted in the axillae. IMPRESSION: Emphysematous change with no acute cardiopulmonary abnormality. Electronically signed by: Anurag Harris M.D. 10/20/2017 7:28 AM Dictated Date/Time: 10/20/2017 7:27 AM
--- NOTE | 2017-10-20 07:39 | DIAGNOSTIC IMAGING REPORT ---
RIGHT SHOULDER 4 VIEWS; RIGHT HUMERUS 2 VIEWS CLINICAL HISTORY: Fall. Trauma. FINDINGS: 4 views of the right shoulder with AP and lateral views of the right humerus are obtained. No prior studies are available for comparison at the time of dictation. The skeletal structures are osteopenic. There is a comminuted and distracted fracture of the distal clavicle. There is superior distraction of the distal fragment by approximate 6 mm. Overlying soft tissue edema is noted. The acromioclavicular joint appears maintained. No additional fracture is identified at the shoulder joint. There is no radiographic evidence of humeral fracture on the humeral views. The glenohumeral joint appears maintained, and the elbow joint is grossly preserved. Calcific tendinopathy is noted in the right shoulder. There is atherosclerotic calcification of the right axillary artery. The partially imaged right lung parenchyma appears clear noting emphysematous change. IMPRESSION: 1. There is a comminuted and distracted fracture of the distal right clavicle as above. 2. No additional fracture is identified at the shoulder joint. 3. There is no radiographic evidence of right humeral fracture. 4. Calcific tendinopathy is noted. Electronically signed by: Anurag Harris M.D. 10/20/2017 7:37 AM Dictated Date/Time: 10/20/2017 7:34 AM
--- NOTE | 2017-10-20 07:48 | DIAGNOSTIC IMAGING REPORT ---
SINGLE VIEW PELVIS CLINICAL HISTORY: Trauma. Fall. FINDINGS: An AP pelvic radiograph is obtained. No prior studies are available for comparison at the time of dictation. The skeletal structures are osteopenic. There is no radiographic evidence of acute fracture involving the hips or bony pelvis. The sacroiliac joints are maintained. Minimal arthritic change is seen in the hips. The overlying soft tissues are normal in appearance. There are numerous pelvic phleboliths. Advanced atherosclerotic calcification is seen in the pelvic and femoral arteries. No bowel obstruction is identified. IMPRESSION: Osteopenia with no radiographic evidence of acute fracture involving the hips or bony pelvis. Electronically signed by: Anurag Harris M.D. 10/20/2017 7:47 AM Dictated Date/Time: 10/20/2017 7:46 AM
== END 2017-10-20 06:31 | disposition home or self-care (01) ==
LOC: EDBD 00:56 → C.EDB 00:57
DX: S42.001A Fracture of unspecified part of right clavicle, initial encounter for closed fracture (principal); S80.211A Abrasion, right knee, initial encounter; S40.021A Contusion of right upper arm, initial encounter; W19.XXXA Unspecified fall, initial encounter; E87.1 Hypo-osmolality and hyponatremia; Y90.6 Blood alcohol level of 120-199 mg/100 ml; R42 Dizziness and giddiness; I25.10 Atherosclerotic heart disease of native coronary artery without angina pectoris; I10 Essential (primary) hypertension; F17.200 Nicotine dependence, unspecified, uncomplicated; F10.129 Alcohol abuse with intoxication, unspecified; Z79.82 Long term (current) use of aspirin; Z79.899 Other long term (current) drug therapy; Z91.040 Latex allergy status; Z88.6 Allergy status to analgesic agent

== ENCOUNTER 2017-10-31 13:33 | Emergency (ER) | payer OTHER ==
[~2017-10-31 13:33] MED LIST changes: -ASPI81TA28 PO; -GABA-113 PO; +GABA800T PO; -LSX20 PO; -NIFE30TA83 PO; -TPRSR/50 PO; +VNTHFA/IN INH
[2017-10-31 13:40] VITALS: TEMP 37.1; Ht 154.9 cm
[2017-10-31] MEDS ORDERED: DEXAMETHASONE SOD INJ 4 MG/ML VIAL IV STA (14:15)
[2017-10-31] MEDS ORDERED: SODIUM CHLORIDE 0.9% 500ML 500 ML IV STA ×2 (14:15→16:22)
--- NOTE | 2017-10-31 14:30 | EMERGENCY ROOM VISIT NOTE ---
History First contact with patient: 13:53 Chief Complaint: THROAT PAIN/INJURY Stated Complaint: PAIN IN THROAT,DIFFICULTY SWALLOWING CAN'T EAT History of Present Illness The patient is a 62 year old female who presents to the Emergency Room with complaints of ongoing throat pain and weight loss over the last several months. The patient has a history of throat cancer. She completed radiation back in February. While she was on radiation, she did not have significant pain. It started shortly thereafter. The patient has seen numerous specialists both locally and in [place]. She is on ear nose and throat doctor in [place] on October 18. A scope was performed. She was told that her vocal cords are swollen. She is due for a swallow study tomorrow morning. The patient is not able to swallow her pills. Her typical diet consists of yogurt and liquids. She has lost 10 pounds in the last month. She denies any acute shortness of breath. Her breathing is at baseline. She has had a productive cough, but she cannot get the sputum up. She denies any abdominal pain. She has had some dysuria over the last several days. No fever, chills or flank pain. Review of Systems 10 system review performed and negative unless noted in HPI or below Past Medical/Surgical History Medical Problems: (1) Coronary artery disease (2) Hypertension Throat cancer History of alcoholism Family History FH: cancer FH: diabetes mellitus FH: heart disease FH: hypertension FH: lung disease Social History Smoking Status: Current Every Day Smoker Alcohol Use: heavy Marital Status: Housing Status: lives with family Occupation Status: employed Current/Historical Medications Scheduled Aspirin (Aspirin Ec), 81 MG PO QAM Clopidogrel (Plavix), 75 MG PO QAM Duloxetine Hcl (Cymbalta), 30 MG PO DAILY Furosemide (Furosemide), 20 MG PO QAM Gabapentin (Neurontin), 800 MG PO TID Metoprolol Succinate (Metoprolol Succinate ER), 100 MG PO QAM Nifedipine Ext Rel (Procardia Xl Ext Rel), 30 MG PO QAM Prednisolone (Prelone 15MG/5ML), 15 ML PO DAILY Scheduled PRN Albuterol Hfa (Ventolin Hfa), 2 PUFFS INH Q6H PRN for SOB/Wheezing Hydrocodone/Acetaminophen 5MG/325MG ([place] 5MG/325MG), 1 TABLET PO Q4-6HRS PRN for Pain Ibuprofen Tab (Advil), 200 MG PO UD PRN for Pain Physical Exam Vital Signs Date Time Temp Pulse Resp B/P (MAP) Pulse Ox O2 Delivery O2 Flow Rate FiO2 10/31/17 18:12 67 16 104/56 93 10/31/17 17:29 64 18 98/60 97 Room Air 10/31/17 15:22 72 16 131/65 93 Room Air 10/31/17 13:45 97 Room Air 10/31/17 13:40 37.1 107 16 120/80 97 Room Air Physical Exam VITALS: Vitals are noted on the nurse's note and reviewed by myself. Vital signs stable. GENERAL: 62-year-old female, appears older than stated age, chronically ill in appearance, very thin SKIN: The skin was dry HEAD: Normocephalic atraumatic. EYES:. Conjunctivae without injection, sclerae without icterus. Extraocular movements intact. MOUTH: Mucous membranes dry. No erythema or edema noted of the oropharynx. Uvula is midline. NECK: Tenderness to palpation over the trachea. Stridor noted. HEART: Regular rate and rhythm without murmurs gallops or rubs. LUNGS: Rhonchorous breath sounds with wheezing bilaterally. No tachypnea. ABDOMEN: Positive bowel sounds x 4.Soft, nontender, without organomegaly. No guarding or rebound tenderness. MUSCULOSKELETAL: Muscle wasting noted. No erythema or edema in the lower extremities bilaterally. Strength 5/5 throughout. NEURO: Patient was alert and oriented to person place and time. Normal sensation to touch. No focal neurological deficits. Medical Decision & Procedures ER Provider Diagnostic Interpretation: Soft tissue neck, chest x-ray IMPRESSION: Hyperinflation without acute process. The above report was generated using voice recognition software. It may contain grammatical, syntax or spelling errors. IMPRESSION: 1. Mid to lower prevertebral soft tissue tissues measure within the upper limits of normal. Additionally, there is mild thickening of the epiglottis. Differential considerations would include posttreatment related changes with acute infectious etiology also within the differential. Correlate with clinical exam and patient history. 2. Carotid arterial calcifications noted. 3. Emphysema. The above report was generated using voice recognition software. It may contain grammatical, syntax or spelling errors. Electronically signed by: Valente Tai M.D. 10/31/2017 2:48 PM Dictated Date/Time: 10/31/2017 2:42 PM Laboratory Results 10/31/17 14:42 Red Blood Count 4.03, Mean Corpuscular Volume 94.0, Mean Corpuscular Hemoglobin 32.5, Mean Corpuscular Hemoglobin Concent 34.6, Mean Platelet Volume 9.5, Neutrophils (%) (Auto) 79.9, Lymphocytes (%) (Auto) 10.8, Monocytes (%) (Auto) 7.4, Eosinophils (%) (Auto) 1.5, Basophils (%) (Auto) 0.3, Neutrophils # (Auto) 5.87, Lymphocytes # (Auto) 0.79, Monocytes # (Auto) 0.54, Eosinophils # (Auto) 0.11, Basophils # (Auto) 0.02 10/31/17 14:42 Test 10/31/17 14:42 10/31/17 15:20 White Blood Count 7.34 K/uL (4.8-10.8) Red Blood Count 4.03 M/uL (4.2-5.4) Hemoglobin 13.1 g/dL (12.0-16.0) Hematocrit 37.9 % (37-47) Mean Corpuscular Volume 94.0 fL (80-100) Mean Corpuscular Hemoglobin 32.5 pg (25-34) Mean Corpuscular Hemoglobin Concent 34.6 g/dl (32-36) Platelet Count 289 K/uL (130-400) Mean Platelet Volume 9.5 fL (7.4-10.4) Neutrophils (%) (Auto) 79.9 % Lymphocytes (%) (Auto) 10.8 % Monocytes (%) (Auto) 7.4 % Eosinophils (%) (Auto) 1.5 % Basophils (%) (Auto) 0.3 % Neutrophils # (Auto) 5.87 K/uL (1.4-6.5) Lymphocytes # (Auto) 0.79 K/uL (1.2-3.4) Monocytes # (Auto) 0.54 K/uL (0.11-0.59) Eosinophils # (Auto) 0.11 K/uL (0-0.5) Basophils # (Auto) 0.02 K/uL (0-0.2) RDW Standard Deviation 40.2 fL (36.4-46.3) RDW Coefficient of Variation 11.9 % (11.5-14.5) Immature Granulocyte % (Auto) 0.1 % Immature Granulocyte # (Auto) 0.01 K/uL (0.00-0.02) Anion Gap 5.0 mmol/L (3-11) Estimated GFR () 100.9 Estimated GFR (Non- 87.0 BUN/Creatinine Ratio 14.9 (10-20) Calcium Level 9.1 mg/dl (8.5-10.1) Urine Color YELLOW Urine Appearance CLEAR (CLEAR) Urine pH 6.5 (4.5-7.5) Urine Specific [place] 1.011 (1.000-1.030) Urine Protein NEG (NEG) Urine Glucose (UA) NEG (NEG) Urine Ketones NEG (NEG) Urine Occult Blood NEG (NEG) Urine Nitrite NEG (NEG) Urine Bilirubin NEG (NEG) Urine Urobilinogen NEG (NEG) Urine Leukocyte Esterase NEG (NEG) Medications Administered Medications (Trade) Dose Ordered Sig/Pavithra Route Start Time Stop Time Status Last Admin Dose Admin Sodium Chloride 500 ml @ 999 mls/hr Q31M STAT IV 10/31/17 14:15 10/31/17 14:45 DC 10/31/17 14:15 999 MLS/HR Dexamethasone Sodium Phosphate (Decadron Inj) 10 mg NOW STAT IV 10/31/17 14:15 10/31/17 14:19 DC 10/31/17 14:40 10 MG Morphine Sulfate (MoRPHine SULFATE INJ) 4 mg Q1H PRN IV 10/31/17 14:15 10/31/17 18:36 DC 10/31/17 16:32 4 MG Sodium Chloride 500 ml @ 999 mls/hr Q31M STAT IV 10/31/17 16:22 10/31/17 16:52 DC 10/31/17 16:32 999 MLS/HR Miscellaneous Medication (Gi Cocktail) 24 ml ONE STAT PO 10/31/17 16:46 10/31/17 16:47 DC 10/31/17 17:21 24 ML Lidocaine HCl (Viscous Lidocaine 2% Soln) 20 ml STK-MED ONCE .ROUTE 10/31/17 17:19 10/31/17 17:20 DC 10/31/17 17:21 10 ML Al Hydroxide/Mg Hydroxide (Maalox Susp) 30 ml STK-MED ONCE .ROUTE 10/31/17 17:19 10/31/17 17:20 DC 10/31/17 17:20 30 ML ED Course Patient was seen and examined Vital signs including blood pressure were reviewed medications list was verified with patient Labs were obtained, and a saline lock was established The patient was ordered morphine as needed and Decadron 10 mg IV. She was hydrated with 500 cc of normal saline. The patient was reexamined. She was resting slightly more comfortably. We discussed her workup. She voiced understanding. She was given an additional 500 cc of normal saline. She was also given a GI cocktail The case was also discussed with my supervising physician who evaluated the patient and is in agreement with my plan I reviewed discharge instructions the patient. They voiced understanding and had no further questions. Medical Decision Differential diagnosis: Malnutrition, dehydration, electrolyte imbalance, failure to thrive, pneumonia, UTI, airway compromise among others were considered This patient is a 62-year-old female that presents to the emergency department complaining of severe throat pain that has been chronic in nature causing her to not be able to take adequate oral intake. On exam, she did have a small amount of stridor noted. She was dehydrated. Her workup reveals hyponatremia, however this is improved when compared to her last visit. Imaging reveals mild swelling of the soft tissues suggesting possible epiglottitis. I believe this is chronic in nature. The patient just had a scope done by an ear nose and throat doctor 2 weeks ago. Her airway was patent. The patient was able to eat a sandwich and take some fluids yesterday. I believe that she is stable to be discharged home. The patient was treated with steroids and fluids in the emergency department. I do not suspect acute significant airway compromise. The patient was encouraged to take soft foods and thick liquids. She will follow-up with the speech therapist tomorrow. This chart was completed in part utilizing [employer] Speech Voice Recognition software. Attempts were made to minimize the grammatical errors, random word insertions, pronoun errors and incomplete sentences. Any formal questions or concerns about the content, text or information contained within the body of this dictation should be directly addressed to the provider for clarification. Medication Reconcilliation Current Medication List: was personally reviewed by me Blood Pressure Screening Patient's blood pressure: Normal blood pressure Impression Primary Impression: Dehydration Additional Impressions: Hyponatremia Throat pain Departure Information Dispostion Home / Self-Care Condition FAIR Prescriptions Prednisolone (PRELONE 15MG/5ML) 15 Mg/5 Ml Gill 15 ML PO DAILY for 8 Days, #100 ML take 15 ml daily x 3 days then 13 ml daily x 2 days then 10 ml daily x 2 days then 5 ml daily x 1 day Prov: Lorene Salinas PA-C 10/31/17 Referrals Paola Wilson M.D. (PCP) Patient Instructions My [facility] Additional Instructions You have been evaluated in the emergency department for severe throat pain and difficulty eating. Please take the entire course of liquid prednisone as prescribed I would recommend soft foods such as mashed potatoes. A cold milkshake also may help with your throat pain. Try to stay well-hydrated. Please follow-up with a speech therapist tomorrow as directed Please also follow-up with your primary care physician next week for recheck Do not hesitate to return to the emergency department with any new, worsening or concerning symptoms It was a pleasure participating in your care today Problem Qualifiers
[2017-10-31] MEDS: MoRPHine SULFATE 4 MG/ML 1 ML CARP\\VIAL IV PRN ×2 (14:40→16:32)
--- NOTE | 2017-10-31 14:43 | DIAGNOSTIC IMAGING REPORT ---
CHEST ONE VIEW PORTABLE HISTORY: 62 years-old Female cough wheezing ? aspiration acute cough and wheezing COMPARISON: Chest radiograph 10/20/2017, radiographs of the soft tissues of the neck 10/31/2017 TECHNIQUE: Portable AP view of the chest FINDINGS: Cardiac silhouette is within normal limits. Coronary arterial stent projects of the left heart border. Calcification of the aorta. Emphysema with hyperinflation. No pneumothorax, pleural effusion, focal airspace consolidation or overt pulmonary edema. Degenerative changes of the shoulders and spine. Subacute to chronic appearing fracture of the distal right clavicle is unchanged. IMPRESSION: Hyperinflation without acute process. The above report was generated using voice recognition software. It may contain grammatical, syntax or spelling errors. Electronically signed by: Valente Tai M.D. 10/31/2017 2:42 PM Dictated Date/Time: 10/31/2017 2:41 PM
[2017-10-31 14:49] LABS: BASO % 0.3 %; BASO ABS # 0.02 K/uL (0-0.2); EOS % 1.5 %; EOS ABS # 0.11 K/uL (0-0.5); HEMATOCRIT 37.9 % (37-47); HEMOGLOBIN 13.1 g/dL (12.0-16.0); IG# 0.01 K/uL (0.00-0.02); LYMPH % 10.8 %; LYMPH ABS # 0.79 K/uL (1.2-3.4); MEAN CORPUSCULAR HEMOGLOBIN 32.5 pg (25-34); MEAN CORPUSCULAR HGB CONC 34.6 g/dl (32-36); MEAN PLATELET VOLUME 9.5 fL (7.4-10.4); MONO % 7.4 %; MONO ABS # 0.54 K/uL (0.11-0.59); NEUT % 79.9 %; NEUT ABS # 5.87 K/uL (1.4-6.5); PLATELET COUNT 289 K/uL (130-400); RED CELL DISTRIBUTION WIDTH CV 11.9 % (11.5-14.5); RED CELL DISTRIBUTION WIDTH SD 40.2 fL (36.4-46.3); WHITE BLOOD COUNT 7.34 K/uL (4.8-10.8)
--- NOTE | 2017-10-31 14:49 | DIAGNOSTIC IMAGING REPORT ---
SOFT TISSUE NECK HISTORY: 62 years-old Female throat pain hx throat CA s/p radiation acute throat pain with history of head neck cancer and prior radiation therapy COMPARISON: Chest radiograph of same day, PET CT 07/05/2017, CT soft tissue neck 06/25/2017 TECHNIQUE: 2 views of the soft tissues of the neck. FINDINGS: Calcification of the bilateral carotid vasculature redemonstrated. There is prominence of the prevertebral tissues measuring up tor 2.1 cm at the level of C4. No opaque foreign bodies. Mild thickening about the epiglottis and area epiglottic folds. Nasopharynx appears patent. Elongated styloid processes. Mild intervertebral disc space narrowing at C4-C5 and C5-C6 with mild multilevel spondylitic spurring and facet arthropathy. Calcification of the aorta. Hyperinflated lungs with emphysema. Coronary arterial stent graft. Molar maxillary dental caries seen on the lateral view. IMPRESSION: 1. Mid to lower prevertebral soft tissue tissues measure within the upper limits of normal. Additionally, there is mild thickening of the epiglottis. Differential considerations would include posttreatment related changes with acute infectious etiology also within the differential. Correlate with clinical exam and patient history. 2. Carotid arterial calcifications noted. 3. Emphysema. The above report was generated using voice recognition software. It may contain grammatical, syntax or spelling errors. Electronically signed by: Valente Tai M.D. 10/31/2017 2:48 PM Dictated Date/Time: 10/31/2017 2:42 PM
[2017-10-31 15:06] LABS: BLOOD UREA NITROGEN 11 mg/dl (7-18); CALCIUM 9.1 mg/dl (8.5-10.1); CARBON DIOXIDE 35 mmol/L (21-32); CREATININE 0.73 mg/dl (0.60-1.20); GLUCOSE 93 mg/dl (70-99); POTASSIUM 3.7 mmol/L (3.5-5.1); SODIUM 127 mmol/L (136-145)
[2017-10-31] MEDS ORDERED: HYDR-5688 PO (15:30)
[2017-10-31] MEDS ORDERED: CYM/30 PO (15:30)
[2017-10-31] MEDS ORDERED: GI COCKTAIL PO STA (16:46)
[2017-10-31] MEDS ORDERED: ALUMINUM/MAGNESIUM SUSP 30 ML UDC ONE (17:19)
[2017-10-31] MEDS ORDERED: LIDOCAINE HCL 2% VISC SOLN 20 ML UDC ONE (17:19)
[2017-10-31] MEDS ORDERED: PRED15SY17 PO (17:49)
[2017-10-31 18:12] VITALS: BP 104/56; PULSE 67; O2SAT 93
[2017-10-31] MEDS ORDERED: ASPI81TA28 PO (19:38)
[2017-10-31] MEDS ORDERED: TPRSR/50 PO (20:10)
[2017-10-31] MEDS ORDERED: NIFE30TA83 PO (20:10)
[2017-10-31] MEDS ORDERED: LSX20 PO (20:10)
--- NOTE | 2017-11-01 17:07 | EMERGENCY ROOM VISIT NOTE ---
ED Visit Note First contact with patient: 13:53 I have personally seen and evaluated the patient with the PA, Lorene Salinas. Upon my evaluation the patient, she does have some difficulty with swallowing. She states she was able to eat a sandwich and have a drink last evening for dinner. She is having trouble swallowing her Gatorade currently. I have recommended a milk shake consistency diet. She will be placed on oral steroids. At this time I do not see an urgent need for medical admission as this has been an ongoing problem status post laryngeal cancer. There is no evidence of respiratory stridor. With the patient's history of radiation treatments, normal white count and afebrile state, I do believe an acute infectious epiglottitis is unlikely. I do suspect this is a post radiation issue. Patient has been evaluated by ENT and is scheduled for a swallow study tomorrow. She will be discharged to the care of her daughter and will return for worsening of symptoms or any medical concerns. I agree with the diagnosis and management decisions and have been personally involved in the case.
== END 2017-10-31 18:14 | disposition home or self-care (01) ==
LOC: C.EDB 13:34 → C.EDA 18:14
DX: E86.0 Dehydration (principal); E87.1 Hypo-osmolality and hyponatremia; R07.0 Pain in throat; R63.4 Abnormal weight loss; I10 Essential (primary) hypertension; F17.200 Nicotine dependence, unspecified, uncomplicated; Z85.819 Personal history of malignant neoplasm of unspecified site of lip, oral cavity, and pharynx; Z79.82 Long term (current) use of aspirin; Z79.899 Other long term (current) drug therapy

== ENCOUNTER 2017-11-01 14:09 | Emergency (ER) | payer OTHER ==
[~2017-11-01 14:09] MED LIST changes: +ASPI81TA28 PO; +CYM/30 PO; +HYDR-5688 PO; +LSX20 PO; +NIFE30TA83 PO; +PRED15SY17 PO; +TPRSR/50 PO
[2017-11-01 14:13] VITALS: TEMP 37.1; Ht 152.4 cm
[2017-11-01] MEDS ORDERED: SODIUM CHLORIDE 0.9% 1000ML 1,000 ML IV STA (14:45)
[2017-11-01] MEDS ORDERED: MoRPHine SULFATE 2 MG/ML CARP IV STA (14:45)
[2017-11-01] MEDS ORDERED: SODIUM CHLORIDE 0.9% 1000ML 250 ML IV STA (14:45)
--- NOTE | 2017-11-01 15:06 | DIAGNOSTIC IMAGING REPORT ---
CHEST ONE VIEW PORTABLE HISTORY: 62 years-old Female CHEST PAIN acute atypical chest pain COMPARISON: Chest radiograph 05/31/2017 TECHNIQUE: Portable AP view of the chest FINDINGS: Cardiomediastinal and hilar silhouettes are within normal limits. Coronary arterial stent graft projects over the left heart border. Calcification of the aorta. Emphysema with hyperinflation. There is no pneumothorax, pleural effusion, focal airspace consolidation or overt pulmonary edema. Calcific tendinosis about the bilateral shoulders. Arterial calcifications are seen about the bilateral axillary distributions. IMPRESSION: No acute process. The above report was generated using voice recognition software. It may contain grammatical, syntax or spelling errors. Electronically signed by: Valente Tai M.D. 11/01/2017 3:04 PM Dictated Date/Time: 11/01/2017 3:01 PM
--- NOTE | 2017-11-01 15:16 | EMERGENCY ROOM VISIT NOTE ---
History Report prepared by Otto: Gunner Lamb Under the Supervision of: Dr. Kevan Betancourt M.D. First contact with patient: 14:29 Chief Complaint: REFERRED BY DOCTOR Stated Complaint: REFERRED BY SPEECH PATHOLOGIST, ASPIRATING History of Present Illness The patient is a 62 year old female who presents to the Emergency Room with complaints of progressively worsening difficulty swallowing that has been present since she finished chemotherapy 9 months ago. The patient presents to the department with her daughter who states that the patient has been dealing with these throat issues for over 9 months. The patient has a history of throat cancer and is currently in remission. She had radiation treatment and was told that her current symptoms are the result of radiation side effects. The patient has visited with her oncologists and ENT physicians who have all told her that "everything was fine." The patient was scheduled for a swallowing study and the speech pathologist was "very concerned." They note that the pathologist was concerned that her vocal chords were very swollen and that her airway was not stable. She also mentioned concern about possible aspiration of fluids. The patient is currently complaining of pain to her throat and difficulty swallowing food and fluids. The patient did become hypoxic in triage as well. She was in the department yesterday and had an x-ray of the throat/neck performed. She adds that she has had intermittent fevers and sweats at night. Source of History: patient Onset: 9 months Position: throat Quality: other (diffiuclty swallowing) Timing: worsening Associated Symptoms: + fevers, + diaphoresis Review of Systems See HPI for pertinent positives & negatives. A total of 10 systems reviewed and were otherwise negative. Past Medical & Surgical Medical Problems: (1) Coronary artery disease (2) Hypertension Old medical records were reviewed. Nurse's notes were reviewed and I agree with. Family History FH: cancer FH: diabetes mellitus FH: heart disease FH: hypertension FH: lung disease Social History Smoking Status: Current Every Day Smoker Alcohol Use: heavy Marital Status: Housing Status: lives with family Occupation Status: employed Current/Historical Medications Scheduled Aspirin (Aspirin Ec), 81 MG PO QAM Clopidogrel (Plavix), 75 MG PO QAM Duloxetine Hcl (Cymbalta), 30 MG PO DAILY Furosemide (Furosemide), 20 MG PO QAM Gabapentin (Neurontin), 800 MG PO TID Metoprolol Succinate (Metoprolol Succinate ER), 100 MG PO QAM Nifedipine Ext Rel (Procardia Xl Ext Rel), 30 MG PO QAM Prednisolone (Prelone 15MG/5ML), 15 ML PO DAILY Scheduled PRN Albuterol Hfa (Ventolin Hfa), 2 PUFFS INH Q6H PRN for SOB/Wheezing Hydrocodone/Acetaminophen 5MG/325MG (Davin 5MG/325MG), 1 TABLET PO Q4-6HRS PRN for Pain Ibuprofen Tab (Advil), 200 MG PO UD PRN for Pain Allergies Coded Allergies: Latex1 -Allergic Contact Dermititis (Verified Allergy, Intermediate, SKIN BLISTERS, 11/01/17) Acetaminophen (Unverified Adverse Reaction, Mild, AFFECTS LIVER FUNCTION, 11/01/17) Oxycodone (Unverified Adverse Reaction, Mild, VOMITING, 11/01/17) Physical Exam Vital Signs Date Time Temp Pulse Resp B/P (MAP) Pulse Ox O2 Delivery O2 Flow Rate FiO2 11/01/17 17:02 80 11/01/17 16:44 74 12 131/57 95 Room Air 11/01/17 16:00 76 15 97 Room Air 11/01/17 15:30 81 14 100 Room Air 11/01/17 15:15 97 20 103/60 99 Room Air 11/01/17 14:13 37.1 105 18 83/43 94 Room Air Physical Exam General: Chronically ill appearing older aged female, slender, cachectic, in no acute distress. HEENT: Normal cephalic atraumatic. Pupils are equal round and reactive to light. Extraocular movements are intact. Oropharynx is pink with moist mucous membranes. No swelling of the mouth lips or tongue. Neck: Patient is hoarse when talking, no stridor. Supple with a midline trachea. No meningeal signs or stiffness, no JVD or bruits. Chest: Clear to auscultation bilaterally. No wheezes or rhonchi. No increased work of breathing. Heart: regular rate and rhythm. Abdomen: Soft nontender, nondistended without rebound guarding or rigidity. Extremities: No cyanosis clubbing or edema. No calf tenderness or assymetry Spine/Back. Non tender to palpation. No CVA tenderness Skin: Good turgor without rashes. Neurologic exam: Cranial nerves two through 12 are intact. Motor and sensation are intact and symmetrical throughout. Medical Decision & Procedures ER Provider Diagnostic Interpretation: Radiology results as stated below per my review and radiologist interpretation: CHEST ONE VIEW PORTABLE HISTORY: 62 years-old Female CHEST PAIN acute atypical chest pain COMPARISON: Chest radiograph 05/31/2017 TECHNIQUE: Portable AP view of the chest FINDINGS: Cardiomediastinal and hilar silhouettes are within normal limits. Coronary arterial stent graft projects over the left heart border. Calcification of the aorta. Emphysema with hyperinflation. There is no pneumothorax, pleural effusion, focal airspace consolidation or overt pulmonary edema. Calcific tendinosis about the bilateral shoulders. Arterial calcifications are seen about the bilateral axillary distributions. IMPRESSION: No acute process. The above report was generated using voice recognition software. It may contain grammatical, syntax or spelling errors. Electronically signed by: Valente Tai M.D. 11/01/2017 3:04 PM Dictated Date/Time: 11/01/2017 3:01 PM Laboratory Results 11/01/17 15:10 Red Blood Count 3.68, Mean Corpuscular Volume 95.1, Mean Corpuscular Hemoglobin 32.1, Mean Corpuscular Hemoglobin Concent 33.7, Mean Platelet Volume 9.4, Neutrophils (%) (Auto) 82.9, Lymphocytes (%) (Auto) 8.4, Monocytes (%) (Auto) 7.5, Eosinophils (%) (Auto) 0.8, Basophils (%) (Auto) 0.2, Neutrophils # (Auto) 7.44, Lymphocytes # (Auto) 0.75, Monocytes # (Auto) 0.67, Eosinophils # (Auto) 0.07, Basophils # (Auto) 0.02 11/01/17 15:10 Test 11/01/17 15:10 White Blood Count 8.97 K/uL (4.8-10.8) Red Blood Count 3.68 M/uL (4.2-5.4) Hemoglobin 11.8 g/dL (12.0-16.0) Hematocrit 35.0 % (37-47) Mean Corpuscular Volume 95.1 fL (80-100) Mean Corpuscular Hemoglobin 32.1 pg (25-34) Mean Corpuscular Hemoglobin Concent 33.7 g/dl (32-36) Platelet Count 315 K/uL (130-400) Mean Platelet Volume 9.4 fL (7.4-10.4) Neutrophils (%) (Auto) 82.9 % Lymphocytes (%) (Auto) 8.4 % Monocytes (%) (Auto) 7.5 % Eosinophils (%) (Auto) 0.8 % Basophils (%) (Auto) 0.2 % Neutrophils # (Auto) 7.44 K/uL (1.4-6.5) Lymphocytes # (Auto) 0.75 K/uL (1.2-3.4) Monocytes # (Auto) 0.67 K/uL (0.11-0.59) Eosinophils # (Auto) 0.07 K/uL (0-0.5) Basophils # (Auto) 0.02 K/uL (0-0.2) RDW Standard Deviation 41.6 fL (36.4-46.3) RDW Coefficient of Variation 11.9 % (11.5-14.5) Immature Granulocyte % (Auto) 0.2 % Immature Granulocyte # (Auto) 0.02 K/uL (0.00-0.02) Anion Gap 9.0 mmol/L (3-11) Estimated GFR () 80.5 Estimated GFR (Non- 69.4 BUN/Creatinine Ratio 16.2 (10-20) Calcium Level 9.1 mg/dl (8.5-10.1) Laboratory studies as stated above per my review. Medications Administered Medications (Trade) Dose Ordered Sig/Pavithra Route Start Time Stop Time Status Last Admin Dose Admin Sodium Chloride 250 ml @ 999 mls/hr Q16M STAT IV 11/01/17 14:45 11/01/17 15:00 DC 11/01/17 15:15 999 MLS/HR Sodium Chloride 1,000 ml @ 100 mls/hr Q10H STAT IV 11/01/17 14:45 11/01/17 18:39 DC 11/01/17 15:15 100 MLS/HR Morphine Sulfate (MoRPHine SULFATE INJ) 2 mg NOW STAT IV 11/01/17 14:45 11/01/17 14:47 DC 11/01/17 15:17 2 MG Methylprednisolone Sodium Succinate (Solu-Medrol IV) 125 mg NOW STAT IV 11/01/17 16:12 11/01/17 16:14 DC 11/01/17 16:44 125 MG Morphine Sulfate (MoRPHine SULFATE INJ) 2 mg NOW STAT IV 11/01/17 16:12 11/01/17 16:14 DC 11/01/17 17:05 2 MG ED Course 1429: Past medical records reviewed. The patient was evaluated in room C4, and a complete history and physical examination were performed. 1445: Ordered Morphine Sulfate 2 mg IV, Sodium Chloride 1000 ml @ 100 mls/hr IV , Sodium Chloride 250 ml @ 999 mls/hr IV 1515: I discussed the case with Dr. Kenney DELACRUZ. Dr. Moulton would recommend transferring the patient to a higher level of care due to the nature of the oncologic ENT issue. Dr. Moulton has known the patient for a while. 1610: I checked on the patient at this time. She appears comfortable. She is complaining of throat pain. I told her about my conversation with Dr. Moulton 1612: Ordered Morphine Sulfate 2 mg IV, Solu-Medrol 125 mg IV. 1626: I called the daughter to update her on the situation. She is in agreement with ambulance transfer to [place]. 1634: I discussed the case with the transfer center. 1644: I discussed the case with Dr. Emmett DELACRUZ [facility]. He suggests transferring the patient to the ER and he will see it. 1703: I checked on the patient. She agrees to being transferred. She is complaining of lip pain, appears to be from where she was using the spirometer. There are not signs of allergic reaction. Medical Decision Differentials include, but are not limited to; airway compromise, radiation side effect, infection, dehydration, epiglottitis, electrolyte or metabolic abnormality. This patient comes in as described above. 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 Over the last several months she has been having with hoarseness and swallowing she has been seen locally by Dr. Moulton and was seen recently in [place] for a second opinion and had a scope and was told that she had swelling of her vocal cords. she was seen here yesterday and was given IV Decadron and came back today to have a swallowing study which was previously scheduled by her primary doctor, the person who did a swallowing study was concerned that she had vocal cord swelling. She was hypoxic in triage with talking however appears in no distress. she was in mild mildly hypotensive however she is very cachectic this responded to IV fluids and her pressure came up was normal. she appeared stable while she was here and had no stridor or drooling. Blood work was unremarkable. she has no white count or fever. I did discuss the case with Dr. Moulton, and he recommended given her symptoms that we transfer her to [place]. She has been there before and he was concerned that she should be seen by a tertiary care service that specializes more with oncological ENT processes. I talked to his daughter and the patient and they agree with this plan .I did talk to the ENT specialist in [place] as well and his recommend we send her to the ER so I talked the ER physician at this point I believe she is stable to go by ALS. She does not need acute airway management. I am concerned that she has a subacute proximal problem that seems to be getting progressively worse. She was sent to a tertiary care center by for further evaluation by the specialist. Medication Reconcilliation Current Medication List: was personally reviewed by me Blood Pressure Screening Patient's blood pressure: Low blood pressure Consults Time Called: 1510 Consulting Physician: Dr. Kenney DELACRUZ Returned Call: 1515 I discussed the case with Dr. Kenney DELACRUZ. Dr. Moulton would recommend transferring the patient to a higher level of care due to the nature of the oncologic ENT issue. Dr. Moulton has known the patient for a while. Additional Consults: Time Called: 1640 Consulted Physician: Dr. Emmett Meyer Returned Call: [phone] Additional Comments: I discussed the case with Dr. Emmett Meyer. He suggests transferring the patient to the ER and he will see it. Impression Primary Impression: Vocal cord edema Additional Impression: Shortness of breath Scribe Attestation The scribe's documentation has been prepared under my direction and personally reviewed by me in its entirety. I confirm that the note above accurately reflects all work, treatment, procedures, and medical decision making performed by me. Departure Information Dispostion Transfer Acute Care Facility ([facility]) Referrals Paola Wilson M.D. (PCP) Patient Instructions [facility] Problem Qualifiers
[2017-11-01 15:23] LABS: BASO % 0.2 %; BASO ABS # 0.02 K/uL (0-0.2); EOS % 0.8 %; EOS ABS # 0.07 K/uL (0-0.5); HEMOGLOBIN 11.8 g/dL (12.0-16.0); IG# 0.02 K/uL (0.00-0.02); LYMPH % 8.4 %; LYMPH ABS # 0.75 K/uL (1.2-3.4); MEAN CELL VOLUME 95.1 fL (80-100); MEAN CORPUSCULAR HEMOGLOBIN 32.1 pg (25-34); MEAN CORPUSCULAR HGB CONC 33.7 g/dl (32-36); MEAN PLATELET VOLUME 9.4 fL (7.4-10.4); MONO % 7.5 %; MONO ABS # 0.67 K/uL (0.11-0.59); NEUT % 82.9 %; NEUT ABS # 7.44 K/uL (1.4-6.5); PLATELET COUNT 315 K/uL (130-400); RED CELL DISTRIBUTION WIDTH CV 11.9 % (11.5-14.5); RED CELL DISTRIBUTION WIDTH SD 41.6 fL (36.4-46.3); WHITE BLOOD COUNT 8.97 K/uL (4.8-10.8)
[2017-11-01 15:41] LABS: BLOOD UREA NITROGEN 14 mg/dl (7-18); CALCIUM 9.1 mg/dl (8.5-10.1); CARBON DIOXIDE 31 mmol/L (21-32); CREATININE 0.88 mg/dl (0.60-1.20); GLUCOSE 93 mg/dl (70-99); POTASSIUM 3.3 mmol/L (3.5-5.1); SODIUM 132 mmol/L (136-145)
[2017-11-01] MEDS ORDERED: METHYLPREDNISOLONE 125 MG VIAL IV STA (16:12)
[2017-11-01 16:44] VITALS: BP 131/57; O2SAT 95
[2017-11-01] MEDS: MoRPHine SULFATE 2 MG/ML CARP IV STA ×2 (16:44→17:05)
[2017-11-01 17:02] VITALS: PULSE 80
== END 2017-11-01 17:50 | disposition short-term general hospital (02) ==
LOC: C.EDB 14:11 → C.EDC 17:50
DX: J38.4 Edema of larynx (principal); R06.02 Shortness of breath; Z85.819 Personal history of malignant neoplasm of unspecified site of lip, oral cavity, and pharynx; I25.10 Atherosclerotic heart disease of native coronary artery without angina pectoris; I10 Essential (primary) hypertension; F17.210 Nicotine dependence, cigarettes, uncomplicated; Z80.9 Family history of malignant neoplasm, unspecified; Z83.3 Family history of diabetes mellitus; Z82.49 Family history of ischemic heart disease and other diseases of the circulatory system; Z83.6 Family history of other diseases of the respiratory system; Z79.82 Long term (current) use of aspirin; Z79.01 Long term (current) use of anticoagulants; Z79.899 Other long term (current) drug therapy; Z91.040 Latex allergy status; Z88.6 Allergy status to analgesic agent; Z88.5 Allergy status to narcotic agent; Z92.3 Personal history of irradiation

== ENCOUNTER 2020-04-04 10:54 | Observation (INO) ==
--- NOTE | 2020-04-04 11:16 | Emergency Department Note ---
Impression & Plan Tracheostomy complication, Mucus plugging of bronchi, Hypoxia ED Provider Note NAME: BHAVNA CAT AGE: 65 SEX: F : 1955 ARRIVES VIA: Walk-In INFORMANT: Patient ED PROVIDER(S): Dennis Olea DO CHIEF COMPLAINT: trach closing shut HPI: Patient is a 65-year-old female who presents to the ER referred in by her wringer operator. She had her trach removed yesterday by her wringer operator Dr. Simeon Oconnor. The trach has been in for a total of 3 years. They tried to place a 6 Shiley and then a 4 Shiley and were unsuccessful. They were referred in by the wringer operator and he will assist in placement. She denies all other complaints. She has coughed up some mucous plugs which was unchanged from previous. Denies any headache or change in vision. No chest pain or shortness of breath. No nausea, vomiting or diarrhea. No fevers. ROS: See above HPI for pertinent positives & negatives. A total of 10 systems reviewed and were otherwise negative. PAST MEDICAL HISTORY:See Below PAST SURGICAL HISTORY:See Below FAMILY HISTORY:See Below SOCIAL HISTORY:See Below HOME MEDICATIONS:See Below ALLERGIES:See Below VITALS:See Below PHYSICAL EXAMINATION: GENERAL: Sitting up in bed, alert, well appearing, well nourished, no distress, non-toxic EYE EXAM: normal conjunctiva. OROPHARYNX: no exudate, no erythema, lips, buccal mucosa, and tongue normal and mucous membranes are moist NECK: Trach site clean and dry, no stridor LUNGS: Clear to auscultation. Normal chest wall mechanics HEART: no murmurs, S1 normal and S2 normal ABDOMEN: abdomen soft, non-tender, normo-active bowel sounds, no masses, no rebound or guarding. UPPER EXTREMITIES: upper extremities are grossly normal. LOWER EXTREMITIES: No pitting edema. NEURO EXAM: Normal sensorium, cranial nerves II-XII grossly intact, normal speech, no gross weakness of arms, no gross weakness of legs. MEDICAL DECISION MAKING: Patient is a 65-year-old female who presents the ER referred in by her wringer operator who removed her tracheostomy yesterday which has been present for 3 years. She follows with [facility]. Family attempted to place it at home and tried a 6 Shiley and then a 4 Shiley unsuccessful with a fair amount of pressure. After this we contacted Dr. Moulton's office after I spoke with her wringer operator Dr. Oconnor from [facility]. My Chummer Maureen spoke with one of the ladies in the office for [facility] but we never heard back and consequently I consulted her general laborer who was gracious enough to replace the trach. During the replacement and her pulse ox trended down to 80%. She coughed up several mucous plugs. Following this she was placed on oxygen and chest x-ray was unremarkable. He recommended admission. IV was established blood work was obtained. Labs show no significant leukocytosis and mild anemia 10. BMP with LFTs was unremarkable. Covid was negative. Dr. Moulton did call back after the procedure and was made aware that the patient will be staying the night. Triage Nursing notes reviewed. Limited review of prior medical records performed Vital Signs: reviewed and remarkable for no significant abnormalities Differential diagnosis: Differential diagnoses includes but is not limited to pneumonia, bronchitis, COPD/Asthma exacerbation, pneumothorax, pulmonary embolism, congestive heart failure, acute coronary syndrome ER treatment provided: See below Diagnostics interpreted by me: ECG: none Cardiac Monitoring: An order was placed for continuous cardiac monitoring. The monitor shows a rate of 82 with sinus rhythm. Laboratory studies: As stated above and show below. Imaging studies: Chest x-ray was unremarkable Consultation(s): Discussed with Dr. Gupta from [facility] pul[facility]ology at [place] Patient was evaluated by Dr. Zabala at bedside Discussed with Dr. Moulton via telephone Procedures: none Critical Care: None Past Med/Surg History Medical History (Updated 04/04/20 @ 16:02 by Dennis Olea DO) Acute electrocardiogram changes Anxiety Anxiety Anxiety attack CAD (coronary artery disease) Carpal tunnel syndrome COPD (chronic obstructive pulmonary disease) Dysphagia Head and neck cancer Helicobacter pylori antibody positive Herniated disc LOWER BACK History of respiratory failure Hypertension Hyponatremia Laryngeal cancer S/P TRACH + PEG TUBE PLACEMENT, RADIATION Mucus plugging of bronchi PEG (percutaneous endoscopic gastrostomy) adjustment/replacement/removal PEG tube malfunction Poor historian HISTORY OBTAINED FROM Tracheitis Tracheostomy in place Vocal cord edema Surgical History (Updated 04/04/20 @ 13:14 by Jeffrey Zabala MD) History of bronchoscopy History of cardiac cath 2007 - [facility] - 2 STENTS PLACED - FOLLOWS W/ DR. MONTENEGRO 2016 - ABN STRESS TEST - [facility] - NO STENTS/ANGIOPLASTY History of heart artery stent History of laryngoscopy W/ BIOPSY History of tonsillectomy and adenoidectomy History of tracheostomy History of tracheostomy S/P percutaneous endoscopic gastrostomy (PEG) tube placement Family History Daughter Family history of reaction to anesthesia SLOW TO WAKE Father Family hx of colon cancer Other Colon cancer No pertinent family history Social History Smoking Status: Current every day smoker Tobacco Type: Cigarettes Cigarettes Per Day: 1/2 PPD; Second Hand Exposure: Yes; Hx Alcohol Use: Yes (hasn't had ETOH for 1 month) Alcohol type: beer Hx Substance Use: No Preferred Language: American Communication Ability: Effective Molded Goods Controls Operator Required: No Beliefs That Will Affect Care: None marital status: Current Living Situation: Spouse and Family current occupational status: retired Feels Safe at Home: Yes Assistive Devices: Denture - Upper Allergies Allergies Allergy/AdvReac Type Severity Reaction Status Date / Time bee venom protein (honey bee) Allergy Severe Anaphylaxis Verified 04/04/20 12:09 acetaminophen [From Percocet] Allergy Intermediate Vomiting Verified 04/04/20 12:09 latex Allergy Intermediate SKIN Verified 04/04/20 12:09 BLISTERS oxycodone [From Percocet] Allergy Intermediate Vomiting Verified 04/04/20 12:09 Home Meds Home Medications Medication Instructions Recorded Confirmed clopidogrel 75 mg PO QAM 11/25/17 04/04/20 furosemide [Lasix] 20 mg PO DAILY 03/01/19 04/04/20 metoprolol tartrate 12.5 mg PO BID 03/01/19 04/04/20 soft lens rinse,store solution 03/01/19 03/01/19 [Saline Sensitive Eyes] atorvastatin 20 mg PO DAILY 10/31/19 04/04/20 buspirone 5 mg PO BID PRN 10/31/19 04/04/20 omeprazole 20 mg PO DAILY 10/31/19 04/04/20 venlafaxine 75 mg PO BID 10/31/19 04/04/20 levothyroxine 50 mcg PO DAILYBB 04/04/20 04/04/20 Results & Data (ED) Vital Signs Vital Signs - 24 hr 04/04/20 10:57 04/04/20 11:07 04/04/20 11:30 Temperature 36.4 C L Temperature Source Oral Pulse Rate 85 81 75 Pulse Rate [Left Finger] Pulse Rate from SpO2 Sensor 81 75 Pulse Rhythm Regular Pulse Strength Normal Respiratory Rate 18 19 19 Respiratory Effort / Characteristics Non-Labored Respiratory Depth Normal Respiratory Pattern Regular Blood Pressure 129/67 161/58 H 128/70 Blood Pressure Mean 87 92 89 Blood Pressure Position Standing Pulse Oximetry 97 96 100 Oxygen Delivery Method Room Air Oxygen Flow Rate Fraction of Inspired Oxygen Sepsis Recent Fever Within 48 Hours No Sepsis New/Unexplained Change in Mental Status No Sepsis Action Taken by Nursing No Action Required 04/04/20 12:00 04/04/20 12:30 04/04/20 12:53 Temperature Temperature Source Pulse Rate 70 78 Pulse Rate [Left Finger] 89 Pulse Rate from SpO2 Sensor 75 81 Pulse Rhythm Pulse Strength Respiratory Rate 21 20 20 Respiratory Effort / Characteristics Non-Labored Spontaneous Respiratory Depth Respiratory Pattern Blood Pressure 144/68 H 152/80 H Blood Pressure Mean 93 104 Blood Pressure Position Pulse Oximetry 98 95 97 Oxygen Delivery Method Trach Collar Oxygen Flow Rate 6 Fraction of Inspired Oxygen 28 Sepsis Recent Fever Within 48 Hours Sepsis New/Unexplained Change in Mental Status Sepsis Action Taken by Nursing 04/04/20 12:58 04/04/20 14:39 04/04/20 15:00 Temperature Temperature Source Pulse Rate 89 88 Pulse Rate [Left Finger] Pulse Rate from SpO2 Sensor 91 H 89 90 Pulse Rhythm Pulse Strength Respiratory Rate 19 13 18 Respiratory Effort / Characteristics Respiratory Depth Respiratory Pattern Blood Pressure 162/87 H 149/70 H 147/78 H Blood Pressure Mean 112 96 101 Blood Pressure Position Pulse Oximetry 98 96 98 Oxygen Delivery Method Oxygen Flow Rate Fraction of Inspired Oxygen Sepsis Recent Fever Within 48 Hours Sepsis New/Unexplained Change in Mental Status Sepsis Action Taken by Nursing 04/04/20 15:30 04/04/20 15:34 Temperature Temperature Source Pulse Rate 88 Pulse Rate [Left Finger] Pulse Rate from SpO2 Sensor 89 Pulse Rhythm Pulse Strength Respiratory Rate 13 Respiratory Effort / Characteristics Respiratory Depth Respiratory Pattern Blood Pressure 100/68 Blood Pressure Mean 78 Blood Pressure Position Pulse Oximetry 97 96 Oxygen Delivery Method Room Air Oxygen Flow Rate Fraction of Inspired Oxygen Sepsis Recent Fever Within 48 Hours Sepsis New/Unexplained Change in Mental Status Sepsis Action Taken by Nursing Laboratory Data Result diagrams: 04/04/20 14:45 04/04/20 14:45 Lab Results 04/04/20 04/04/20 04/04/20 Range/Units 14:45 14:45 14:45 WBC 8.55 (4.8-10.8) K/uL RBC 3.52 L (4.2-5.4) M/uL Hgb 10.0 L (12.0-16.0) g/dL Hct 30.3 L (37-47) % MCV 86.1 (80-100) fL MCH 28.4 (25-34) pg MCHC 33.0 (32-36) g/dL RDW Std Deviation 42.3 (36.4-46.3) fL RDW Coeff of Jair 13.4 (11.5-14.5) % Plt Count 491 H (130-400) K/uL MPV 9.1 (7.4-10.4) fL Immature Gran % (Auto) 0.1 % Neut % (Auto) 73.4 % Lymph % (Auto) 18.4 % [place] % (Auto) 6.0 % Eos % (Auto) 1.9 % Baso % (Auto) 0.2 % Neut # (Auto) 6.28 (1.4-6.5) K/uL Lymph # (Auto) 1.57 (1.2-3.4) K/uL [place] # (Auto) 0.51 (0.11-0.59) K/uL Eos # (Auto) 0.16 (0-0.5) K/uL Baso # (Auto) 0.02 (0-0.2) K/uL Immature Gran # (Auto) 0.01 (0.00-0.02) K/uL Sodium 134 L (136-145) mmol/L Potassium 3.8 (3.5-5.1) mmol/L Chloride 98 (98-107) mmol/L Carbon Dioxide 30 (21-32) mmol/L Anion Gap 6.0 (3-11) BUN 7 (7-18) mg/dl Creatinine 0.81 (0.6-1.2) mg/dl Est Cr Clr Drug Dosing Not Reportable Est GFR ( Amer) 87.1 Est GFR (Non-Af Amer) 75.2 BUN/Creatinine Ratio 8.9 L (10-20) Glucose 104 H (70-99) mg/dl Calcium 9.5 (8.5-10.1) mg/dl Total Bilirubin 0.4 (0.2-1) mg/dl AST 16 (15-37) U/L ALT 15 (12-78) U/L Alkaline Phosphatase 131 H (45-117) U/L Total Protein 8.2 (6.4-8.2) gm/dl Albumin 3.5 (3.4-5.0) gm/dl Globulin 4.7 H (2.5-4.0) gm/dl Albumin/Globulin Ratio 0.7 L (0.9-2) COVID-19 Eval [facility] SARS-CoV-2, RNA, NAAT (NEGATIVE) 04/04/20 Range/Units 14:45 WBC (4.8-10.8) K/uL RBC (4.2-5.4) M/uL Hgb (12.0-16.0) g/dL Hct (37-47) % MCV (80-100) fL MCH (25-34) pg MCHC (32-36) g/dL RDW Std Deviation (36.4-46.3) fL RDW Coeff of Jair (11.5-14.5) % Plt Count (130-400) K/uL MPV (7.4-10.4) fL Immature Gran % (Auto) % Neut % (Auto) % Lymph % (Auto) % [place] % (Auto) % Eos % (Auto) % Baso % (Auto) % Neut # (Auto) (1.4-6.5) K/uL Lymph # (Auto) (1.2-3.4) K/uL [place] # (Auto) (0.11-0.59) K/uL Eos # (Auto) (0-0.5) K/uL Baso # (Auto) (0-0.2) K/uL Immature Gran # (Auto) (0.00-0.02) K/uL Sodium (136-145) mmol/L Potassium (3.5-5.1) mmol/L Chloride (98-107) mmol/L Carbon Dioxide (21-32) mmol/L Anion Gap (3-11) BUN (7-18) mg/dl Creatinine (0.6-1.2) mg/dl Est Cr Clr Drug Dosing Est GFR ( Amer) Est GFR (Non-Af Amer) BUN/Creatinine Ratio (10-20) Glucose (70-99) mg/dl Calcium (8.5-10.1) mg/dl Total Bilirubin (0.2-1) mg/dl AST (15-37) U/L ALT (12-78) U/L Alkaline Phosphatase (45-117) U/L Total Protein (6.4-8.2) gm/dl Albumin (3.4-5.0) gm/dl Globulin (2.5-4.0) gm/dl Albumin/Globulin Ratio (0.9-2) COVID-19 Eval Order SARS-CoV-2, RNA, NAAT NEGATIVE (NEGATIVE) Administered Medications Discontinued Medications Albuterol (Albut/Ipratrop 3mg/0.5mg Neb 3 Ml Vial) Confirm Administered Dose 3 ml .ROUTE .STK-MED ONE Stop: 04/04/20 12:48 Last Admin: 04/04/20 14:20 Dose: Not Given Documented by: [id number] Albuterol (Albut/Ipratrop 3mg/0.5mg Neb 3 Ml Vial) 3 ml NEB NOW STA Stop: 04/04/20 12:53 Last Admin: 04/04/20 12:53 Dose: 3 ml Documented by: [id number] Sodium Chloride (Nss) 500 mls @ 999 mls/hr IV .Q31M ONE Stop: 04/04/20 12:02 Last Admin: 04/04/20 12:07 Dose: Not Given Documented by: [id number] Piperacillin Sod/Tazobactam Sod (Zosyn) 4.5 gm in 120 mls @ 240 mls/hr IV NOW ONE Stop: 04/04/20 12:01 Last Admin: 04/04/20 12:07 Dose: Not Given Documented by: [id number] Ondansetron HCl (Ondansetron Inj 2 Mg/Ml 2 Ml Vial) 4 mg IV NOW STA Stop: 04/04/20 11:33 Last Admin: 04/04/20 12:07 Dose: Not Given Documented by: [id number] Discharge Plan Visit Data Chief Complaint: Neck Injury/Pain Stated Complaint: HAD TRACH REMOVED YESTERDAY - HOLE SWELLING SHUT ED Provider: Dennis Olea Discharge Problem: Tracheostomy complication, Mucus plugging of bronchi, Hypoxia Forms Stand Alone Forms: My [facility] [employer] Prescriptions Prescriptions: No Action buspirone 5 mg tablet 5 mg PO BID PRN (Reason: Anxiety) RF: 0 atorvastatin 20 mg tablet 20 mg PO DAILY RF: 0 omeprazole 20 mg capsule,delayed release(DR/EC) 20 mg PO DAILY RF: 0 venlafaxine 75 mg tablet 75 mg PO BID RF: 0 clopidogrel 75 mg tablet 75 mg PO QAM RF: 0 furosemide [Lasix] 20 mg Tablet 20 mg PO DAILY RF: 0 metoprolol tartrate 25 mg Tablet 12.5 mg PO BID RF: 0 (DME) Saline Sensitive Eyes Drops MISCELLANEOUS RF: 0 levothyroxine 50 mcg tablet 50 mcg PO DAILYBB RF: 0 Discharge Problem: Tracheostomy complication Qualifiers: Tracheostomy complication: unspecified Qualified Code(s): J95.00 - Unspecified tracheostomy complication
[2020-04-04] MEDS ORDERED: SODIUM CHLORIDE 0.9% 500 ML IV ONE (11:32)
[2020-04-04] MEDS ORDERED: PIPERACILLIN/TAZOBACTAM 4.5 GM/120 ML BAG IV ONE (11:32)
[2020-04-04] MEDS ORDERED: PIPERACILL/TAZOBAC CONSULT ACTIVE PRN (11:32)
[2020-04-04] MEDS ORDERED: ONDANSETRON INJ 2 MG/ML 2 ML VIAL IV STA (11:32)
[2020-04-04] MEDS ORDERED: ALBUT/IPRATROP 3MG/0.5MG NEB 3 ML VIAL ONE (12:47)
[2020-04-04] MEDS ORDERED: ALBUT/IPRATROP 3MG/0.5MG NEB 3 ML VIAL NEB STA (12:52)
--- NOTE | 2020-04-04 13:06 | XRay Report ---
XR chest 1V portable CLINICAL HISTORY: Shortness of breath COMPARISON STUDY: 10/30/2019 FINDINGS: The heart is the upper limits of normal in size. There is a tracheostomy tube present. Ther e is no failure. There is no focal pulmonary consolidation. There are no pleural effusions. 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 ACT 112: Negative or not required by law. Electronically signed by: Ricardo Cortes M.D. 04/04/2020 1:05 PM
--- NOTE | 2020-04-04 13:08 | Pulmonary Consultation ---
Date of Consultation April 04, 2020 Assessment & Plan (1) History of tracheostomy: I was able to successfully place a size 4 uncuffed Shiley tracheostomy over a suction catheter. The patient had significant coughing and mild hypoxia after placement of the tracheostomy. We gave her a dose of duo nebs and humidified oxygen. She is saturating well. Chest x-ray demonstrates adequate placement of the tracheostomy. I will have her admitted for an overnight stay to make sure she has no significant mucous plugging. Would recommend 5 days of gram-positive and gram-negative coverage for potential tracheitis. I would strongly recommend not removing the tracheostomy in the future without guidance of ENT. 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 She went to see her [facility] licensed chemical spray technician yesterday who removed her uncuffed size 4 tracheostomy due to discomfort. Since that period of time she has been having intermittent shortness of breath, cough and having large amounts of thick mucus production. She was requesting reinsertion of the tracheostomy. Her daughter was available at bedside and is also a home health care nurse. She attempted placement of a size 4 uncuffed Shiley tracheostomy at home with no success. Patient denies any chest pain or shortness of breath at this time. She does not have any fevers. She follows closely with [facility] and her licensed chemical spray technician. She does smoke intermittently. Daughter brought with her a sample of a large piece of mucus. I was able to successfully reinsert a size 4 uncuffed Shiley trach. She did have a brief moment of hypoxia down to the low 80s. We gave her DuoNeb treatments and humidified oxygen with significant improvement of saturations. She is currently saturating 97% on trach collar. Chest x-ray demonstrated adequate placement of the tracheostomy. Allergies Allergy/AdvReac Type Severity Reaction Status Date / Time bee venom protein (honey bee) Allergy Severe Anaphylaxis Verified 04/04/20 12:09 acetaminophen [From Percocet] Allergy Intermediate Vomiting Verified 04/04/20 12:09 latex Allergy Intermediate SKIN Verified 04/04/20 12:09 BLISTERS oxycodone [From Percocet] Allergy Intermediate Vomiting Verified 04/04/20 12:09 Home Medications Medication Instructions Recorded Confirmed Type clopidogrel 75 mg PO QAM 11/25/17 04/04/20 History furosemide [Lasix] 20 mg PO DAILY 03/01/19 04/04/20 History metoprolol tartrate 12.5 mg PO BID 03/01/19 04/04/20 History soft lens rinse,store solution 03/01/19 03/01/19 History [Saline Sensitive Eyes] atorvastatin 20 mg PO DAILY 10/31/19 04/04/20 History buspirone 5 mg PO BID PRN 10/31/19 04/04/20 History omeprazole 20 mg PO DAILY 10/31/19 04/04/20 History venlafaxine 75 mg PO BID 10/31/19 04/04/20 History levothyroxine 50 mcg PO DAILYBB 04/04/20 04/04/20 History Patient History Medical History (Updated 04/04/20 @ 13:17 by Jeffrey Zabala MD) Acute electrocardiogram changes Anxiety Anxiety Anxiety attack CAD (coronary artery disease) Carpal tunnel syndrome COPD (chronic obstructive pulmonary disease) Dysphagia Head and neck cancer Helicobacter pylori antibody positive Herniated disc LOWER BACK History of respiratory failure Hypertension Hyponatremia Laryngeal cancer S/P TRACH + PEG TUBE PLACEMENT, RADIATION Mucus plugging of bronchi PEG (percutaneous endoscopic gastrostomy) adjustment/replacement/removal PEG tube malfunction Poor historian HISTORY OBTAINED FROM Tracheitis Tracheostomy in place Vocal cord edema Surgical History (Updated 04/04/20 @ 13:14 by Jeffrey Zabala MD) History of bronchoscopy History of cardiac cath 2008 - ID - [facility] - 2 STENTS PLACED - FOLLOWS W/ DR. MONTENEGRO 2016 - ABN STRESS TEST - [facility] - NO STENTS/ANGIOPLASTY History of heart artery stent History of laryngoscopy W/ BIOPSY History of tonsillectomy and adenoidectomy History of tracheostomy History of tracheostomy S/P percutaneous endoscopic gastrostomy (PEG) tube placement Family History Daughter Family history of reaction to anesthesia SLOW TO WAKE Father Family hx of colon cancer Other Colon cancer No pertinent family history Social History Smoking Status: Current every day smoker Tobacco Type: Cigarettes Cigarettes Per Day: 1/2 PPD; Second Hand Exposure: Yes; Hx Alcohol Use: Yes (hasn't had ETOH for 1 month) Alcohol type: beer Hx Substance Use: No Preferred Language: Turkish Communication Ability: Effective Wirer Required: No Beliefs That Will Affect Care: None marital status: Current Living Situation: Spouse and Family current occupational status: retired Feels Safe at Home: Yes Assistive Devices: Denture - Upper Review of Systems Review of Systems: All systems reviewed & are unremarkable except as noted in HPI & below Physical Exam Constitutional: Thin appearing. No apparent distress Eyes: PERRL, conjunctivae normal, anicteric sclerae ENMT: external ear and nose normal, oropharynx normal Neck: Tracheal stoma site intact. Respiratory: Coarse bilateral rhonchi. Mild tachypnea after placement of tracheostomy. Cardiovascular: RRR, no murmur, no edema Gastrointestinal (Abdomen): normal bowel sounds, soft, nontender, no hepatosplenomegaly Musculoskeletal: no cyanosis or clubbing, extremities motor strength 5/5 Skin: no rashes, warm and dry Neurologic: PERRL, EOMI, accommodation nl, no face palsy, no dysarthria Psychiatric: A+Ox3, euthymic affect Results & Data Results & Data ([facility]) Vital Signs (Past 12 Hours) Vital Signs Temp Pulse Pulse Resp BP Pulse Ox 04/04/20 12:53 89 20 97 04/04/20 10:57 97.5 F L 85 18 129/67 97 I reviewed the vital signs, labs and imaging PG Care Time/CCT Total # of Minutes Spent Total Time Spent with Patient: Total time spent is greater than 50% in coordination of care (as documented) at patient's floor/unit and/or counseling patient: Coding Level of Care Code 57505 Inpt Consult Level 5 Diagnoses History of tracheostomy Z98.890 Head and neck cancer C76.0 Anxiety F41.9 Tracheitis J04.10 Mucus plugging of bronchi J98.09
[2020-04-04 14:55] LABS: Basophils # (auto) 0.02 K/uL (0-0.2); Basophils % (auto) 0.2 %; Eosinophils # (auto) 0.16 K/uL (0-0.5); Eosinophils % (auto) 1.9 %; Hematocrit (blood only) 30.3 % (37-47); Immature Granulocytes # (auto) 0.01 K/uL (0.00-0.02); Immature Granulocytes % (auto) 0.1 %; Lymphocytes # (auto) 1.57 K/uL (1.2-3.4); Lymphocytes % (auto) 18.4 %; Mean Corpuscular Hemoglobin 28.4 pg (25-34); Mean Corpuscular Volume 86.1 fL (80-100); Mean Platelet Volume 9.1 fL (7.4-10.4); Monocytes # (auto) 0.51 K/uL (0.11-0.59); Neutrophils # (auto) 6.28 K/uL (1.4-6.5); Neutrophils % (auto) 73.4 %; Platelet Count 491 K/uL (130-400); RDW Coefficient of Variation 13.4 % (11.5-14.5); RDW Standard Deviation 42.3 fL (36.4-46.3); Red Blood Count 3.52 M/uL (4.2-5.4); White Blood Count 8.55 K/uL (4.8-10.8)
[2020-04-04 15:14] LABS: Albumin Level 3.5 gm/dl (3.4-5.0); Aspartate Aminotransferase 16 U/L (15-37); BUN Creatinine Ratio 8.9 (10-20); Blood Urea Nitrogen 7 mg/dl (7-18); Calcium 9.5 mg/dl (8.5-10.1); Carbon Dioxide 30 mmol/L (21-32); Chloride 98 mmol/L (98-107); Est GFR (African American) 87.1; Est GFR (Non-African American) 75.2; Glucose 104 mg/dl (70-99); Potassium 3.8 mmol/L (3.5-5.1); Sodium 134 mmol/L (136-145)
[2020-04-04 15:19] LABS: Alanine Aminotransferase 15 U/L (12-78); Albumin Globulin Ratio 0.7 (0.9-2); Alkaline Phosphatase 131 U/L (45-117); Bilirubin,Total 0.4 mg/dl (0.2-1); Globulin 4.7 gm/dl (2.5-4.0); Total Protein 8.2 gm/dl (6.4-8.2)
--- NOTE | 2020-04-04 16:42 | History & Physical Report ---
Date of Service April 04, 2020 Assessment & Plan (1) Tracheitis: -admit to tele -patient with history of supraglottic SCC with tracheostomy placed ~ 3 years ago -patient presenting from home with reports of trach site swelling and increased sputum production. Trach was removed yesterday secondary to discomfort. -Pulmonary evaluated the patient in the ED and was able to place a size 4 uncuffed tracheostomy at the bedside. Patient had some hypoxia however this improved after DuoNeb and humidified oxygen. -Patient is currently saturating well on room air, no acute distress -Start empiric p.o. 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 Patient previously had trach placed about 3 years ago due to ongoing airway edema from head and neck cancer. Trach was removed yesterday at pulmonology office due to discomfort. Patient reports that this morning she felt a sensation of her trach site swelling and felt short of breath. She also has had a large amount of sputum production. Patient then presented to the ED for further evaluation. Patient reports she otherwise has been feeling well recently. No fevers or chills. Denies chest pain. No lightheadedness, dizziness, diaphoresis, or syncopal events. Denies abdominal pain, nausea, vomiting, and diarrhea. No urinary symptoms. Pulmonary was consulted and evaluated the patient in the ED. Dr. Zabala was able to successfully place a size 4 uncuffed Shiley tracheostomy over a suction catheter. The patient had significant coughing and mild hypoxia after placement of the tracheostomy. Patient received a dose of duo nebs and humidified oxygen. She is now saturating well on room air and in no acute distress. Patient also received IVF and IV Zosyn. Allergies Allergy/AdvReac Type Severity Reaction Status Date / Time bee venom protein (honey bee) Allergy Severe Anaphylaxis Verified 04/04/20 12:09 acetaminophen [From Percocet] Allergy Intermediate Vomiting Verified 04/04/20 12:09 latex Allergy Intermediate SKIN Verified 04/04/20 12:09 BLISTERS oxycodone [From Percocet] Allergy Intermediate Vomiting Verified 04/04/20 12:09 Home Medications Medication Instructions Recorded Confirmed Type clopidogrel 75 mg PO QAM 11/25/17 04/04/20 History Saline Sensitive Eyes 03/01/19 03/01/19 History furosemide [Lasix] 20 mg PO DAILY 03/01/19 04/04/20 History metoprolol tartrate 12.5 mg PO BID 03/01/19 04/04/20 History atorvastatin 20 mg PO DAILY 10/31/19 04/04/20 History buspirone 5 mg PO BID PRN 10/31/19 04/04/20 History omeprazole 20 mg PO DAILY 10/31/19 04/04/20 History venlafaxine 75 mg PO BID 10/31/19 04/04/20 History levothyroxine 50 mcg PO DAILYBB 04/04/20 04/04/20 History amoxicillin 500 mg PO BID 4 Days #8 tab 04/05/20 Rx cefuroxime axetil 500 mg PO BID 4 Days #8 tab 04/05/20 Rx sodium chloride [Saline Mist] 2 spray NA BID #1 ml 04/05/20 Rx Past Med/Surg History Medical History (Updated 04/06/20 @ 00:05 by Background Daemon) CAD (coronary artery disease) 2007 - LAD stent 2016 - LITTLE to mid LAD Carotid stenosis Carpal tunnel syndrome COPD (chronic obstructive pulmonary disease) Dysphagia Helicobacter pylori antibody positive Herniated disc LOWER BACK History of respiratory failure Hypertension Hyponatremia Hypothyroidism Hypoxia Laryngeal cancer S/P TRACH + PEG TUBE PLACEMENT, RADIATION Mucus plugging of bronchi PEG (percutaneous endoscopic gastrostomy) adjustment/replacement/removal Post-nasal drip Tracheostomy complication Tracheostomy in place Surgical History (Updated 04/06/20 @ 00:05 by Background Daemon) History of bronchoscopy History of cardiac cath 2007 - [facility] - 2 STENTS PLACED - FOLLOWS W/ DR. 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 History of tonsillectomy and adenoidectomy History of tracheostomy S/P percutaneous endoscopic gastrostomy (PEG) tube placement Family History Daughter Family history of reaction to anesthesia SLOW TO WAKE Father Family hx of colon cancer Other Colon cancer No pertinent family history Social History Smoking Status: Current every day smoker Tobacco Type: Cigarettes Cigarettes Per Day: 1/2 PPD; Second Hand Exposure: Yes; Hx Alcohol Use: Yes (hasn't had ETOH for 1 month) Alcohol type: beer Hx Substance Use: No Preferred Language: Lithuanian Communication Ability: Effective Inspector Aide Required: No Beliefs That Will Affect Care: None marital status: Current Living Situation: Alone current occupational status: retired Feels Safe at Home: Yes Assistive Devices: None Review of Systems Review of Systems: ROS per HPI, all other systems reviewed and negative Physical Exam Constitutional: WD/WN, vitals as above Eyes: PERRL, conjunctivae normal, anicteric sclerae ENMT: external ear and nose normal, oropharynx normal Neck: + tracheostomy present Respiratory: normal respiratory effort; no respiratory distress Auscultation: + diminished lung sounds Cardiovascular: Rate/Rhythm: regular rate and regular rhythm Vessels: normal peripheral pulses Extremities: no edema Gastrointestinal (Abdomen): normal bowel sounds, soft, nontender, no hepatosplenomegaly Musculoskeletal: no cyanosis or clubbing, extremities motor strength 5/5 Skin: no rashes, warm and dry Neurologic: PERRL, EOMI, accommodation nl, no face palsy, no dysarthria Psychiatric: A+Ox3, euthymic affect Results & Data Results & Data ([facility]) Vital Signs (Past 12 Hours) Vital Signs Temp Pulse Pulse Resp BP Pulse Ox 04/04/20 15:34 96 04/04/20 15:30 88 13 100/68 97 04/04/20 15:00 88 18 147/78 H 98 04/04/20 14:39 89 13 149/70 H 96 04/04/20 12:58 19 162/87 H 98 04/04/20 12:53 89 20 97 04/04/20 12:30 78 20 152/80 H 95 04/04/20 12:00 70 21 144/68 H 98 04/04/20 11:30 75 19 128/70 100 04/04/20 11:07 81 19 161/58 H 96 04/04/20 10:57 36.4 C L 85 18 129/67 97 Laboratory Results Short CBC 04/04/20 Range/Units 14:45 WBC 8.55 (4.8-10.8) K/uL Hgb 10.0 L (12.0-16.0) g/dL Hct 30.3 L (37-47) % Plt Count 491 H (130-400) K/uL BMP 04/04/20 14:45 Sodium 134 L Potassium 3.8 Chloride 98 Carbon Dioxide 30 BUN 7 Creatinine 0.81 Glucose 104 H Calcium 9.5 Liver Function 04/04/20 Range/Units 14:45 Total Bilirubin 0.4 (0.2-1) mg/dl AST 16 (15-37) U/L ALT 15 (12-78) U/L Alkaline Phosphatase 131 H (45-117) U/L Albumin 3.5 (3.4-5.0) gm/dl Diagnostic Findings CXR IMPRESSION: No active disease in the chest. Code Status & VTE Plan Code Status Patient is a full code as per my discussion with her. VTE Prophylaxis Plan VTE Prophylaxis will be ordered: Yes
[2020-04-04] MEDS ORDERED: ACETAMINOPHEN 325 MG TAB PO PRN (17:35)
[2020-04-04] MEDS ORDERED: MoRPHine SULFATE 2 MG/ML CARP IV PRN (17:35)
[2020-04-04] MEDS: METOPROLOL TARTRATE 25 MG TAB PO SCH (20:55)
[2020-04-04] MEDS: cefUROXime axetil 500 MG TAB PO SCH (20:55)
[2020-04-04] MEDS: AMOXICILLIN SUSP 500 MG/10 ML UDP PO SCH (20:56)
[2020-04-04] MEDS ORDERED: VENLAFAXINE HCL 75 MG TAB PO SCH (21:00)
--- NOTE | 2020-04-04 21:00 | Ultrasound Report ---
US arterial duplex LE BI CLINICAL HISTORY: decreased circulation peripheral artery disease. COMPARISON STUDY: No previous studies for comparison. FINDINGS: Brachial arm systolic arterial pressures measured 61 mmHg on the right, and 121 mmHg on the left. Posterior tibial systolic arterial pressures measured 92 mmHg on the right, and 76 mmHg on the left. Dorsalis pedis systolic arterial pressures measured 64 mmHg on the right, and 59 mmHg on the left. Ankle brachial indices are calculated to measure 0.76 of the right, and 0.63 on the left. Grayscale color flow and Doppler spectral waveform analysis was performed. There is biphasic flow within the common femoral arteries. There are bilateral superficial femoral ar nela occlusions with distal reconstitution. There is monophasic flow within the popliteal arteries bi laterally as well as within the 3 runoff vessels bilaterally. IMPRESSION: 1. Bilateral superficial femoral artery occlusions 2. Diminished right arm brachial systolic pressure of 61 mmHg compared with 121 mmHg on the left. Thi s raises the possibility of a more proximal arterial stenosis possibly subclavian. ACT 112: Negative or not required by law. Electronically signed by: Ricardo Cortes M.D. 04/04/2020 8:59 PM
[2020-04-04] MEDS: VENLAFAXINE HCL 50 MG TAB PO SCH ×2 (22:43→22:44)
[2020-04-04] MEDS ORDERED: traMADol HCL 50 MG TABLET PO PRN (23:33)
[2020-04-05 06:23] LABS: Hematocrit (blood only) 29.7 % (37-47); Hemoglobin 9.6 g/dL (12.0-16.0); Mean Corpuscular Hemoglobin 27.9 pg (25-34); Mean Corpuscular Hgb Conc 32.3 g/dL (32-36); Mean Corpuscular Volume 86.3 fL (80-100); Mean Platelet Volume 9.2 fL (7.4-10.4); Platelet Count 499 K/uL (130-400); RDW Coefficient of Variation 13.4 % (11.5-14.5); RDW Standard Deviation 42.8 fL (36.4-46.3); Red Blood Count 3.44 M/uL (4.2-5.4); White Blood Count 6.41 K/uL (4.8-10.8)
[2020-04-05] MEDS ORDERED: LEVOTHYROXINE SODIUM 50 MCG TABLET PO SCH (06:30)
[2020-04-05 06:45] LABS: BUN Creatinine Ratio 12.4 (10-20); Creatinine Clr Calc Pharmacy 53.3 ml/min; Est GFR (African American) 87.1; Est GFR (Non-African American) 75.2; Potassium 4.2 mmol/L (3.5-5.1)
[2020-04-05] MEDS ORDERED: PANTOprazole 40 MG TAB PO SCH (09:00)
[2020-04-05] MEDS ORDERED: ENOXAPARIN INJ 30 MG/0.3 ML SYR SQ SCH (09:00)
[2020-04-05] MEDS ORDERED: FUROSEMIDE 20 MG TAB PO SCH (09:00)
[2020-04-05] MEDS ORDERED: CLOPIDOGREL BISULFATE 75 MG TAB PO SCH (09:00)
[2020-04-05] MEDS ORDERED: ATORVASTATIN 20 MG TAB PO SCH (09:00)
[2020-04-05] MEDS: AMOXICILLIN SUSP 500 MG/10 ML UDP PO SCH (09:39)
[2020-04-05] MEDS: VENLAFAXINE HCL 50 MG TAB PO SCH (09:40)
[2020-04-05] MEDS: cefUROXime axetil 500 MG TAB PO SCH (09:40)
[2020-04-05] MEDS: METOPROLOL TARTRATE 25 MG TAB PO SCH (09:44)
--- NOTE | 2020-04-05 10:47 | Hospitalist Progress Note ---
Date of Service April 05, 2020 Assessment & Plan (1) Tracheostomy complication: (2) Tracheitis: Presented on admission for increasing sputum production and swelling in tracheostomy site after trach removal on 04/03/20 History of supraglottic SCC with tracheostomy placed ~ 3 years ago Pulm was consulted and uncuffed trach was inserted by Dr. Zabala in the ER No significant mucous plugging overnight and saturated well on RA Continue abx to cover gram positive and gram negative organism for tracheitis Recommended not removing the tracheostomy in the future without guidance of ENT as per Pulm Follow up with pulm outpatient (3) Carotid stenosis: Recent outpatient carotid ultrasound showed bilateral carotid stenosis, 50 to 69% Has outpatient appointment scheduled with vascular Continue plavix and statin (4) CAD (coronary artery disease): -Appears stable, continue beta-alicia, statin, Plavix, aspirin (5) Femoral artery occlusion: Toes are pink with palpable pedal pulses. Pt said that she has been like that for years Arterial doppler showed bilateral superficial femoral artery occlusions. Diminished right arm brachial systolic pressure of 61 mmHg compared with 121 mmHg on the left. This raises the possibility of a more proximal arterial stenosis possibly subclavian. Will consult vascular surgery If vascular unable to see pt today, will schedule for outpatient follow up (6) DVT prophylaxis: On Lovenox subq Admission and Anticipated Discharge Date Admission Date: April 04, 2020 Subjective Pt was seen and examined for follow up trach placement Sitting in bed with no distress she was trying to clean her trach She said that her breathing is ok she said that she is not having any pain in her lower extremity Denies any chest pain, palpitation, dizziness and SOB Physical Exam Physical Exam: General- No acute distress Head- atraumatic Eyes- PERRL, EOMI, ENT- +trach placement Neck- supple, no JVD Lungs- No wheezing Heart- regular rhythm; no murmur Abdomen- normal bowel sounds, soft, nontender Extremities- no calf tenderness, diminished pulse in LE, redness in distal area of the toes Neuro- alert, oriented x 3; PERRL, EOMI; no facial palsy; no dysarthria Skin- warm & dry Results & Data Results & Data ([facility]) Vital Signs (Past 12 Hours) Vital Signs Temp Pulse Pulse Resp BP BP Pulse Ox 04/05/20 08:20 36.9 C 100 H 18 92/57 L 95 01/29/21 07:20 91 H 04/05/20 04:08 37.2 C 72 18 98/55 L 95 04/05/20 00:00 89 04/04/20 23:14 37 C 86 20 121/70 94 (1) Tracheostomy complication Tracheostomy complication: unspecified Qualified Code(s): J95.00 - Unspecifi ed tracheostomy complication
[2020-04-05] MEDS ORDERED: ALBUT/IPRATROP 3MG/0.5MG NEB 3 ML VIAL NEB PRN (12:01)
--- NOTE | 2020-04-05 12:47 | XRay Report ---
XR chest 1V portable CLINICAL HISTORY: Shortness of breath COMPARISON STUDY: 04/04/2020 FINDINGS: The cardiac and mediastinal contours remain stable. There is a tracheostomy tube present. T here is no focal pulmonary consolidation. There is no overt failure. There are no pleural effusions. Slightly prominent right basilar markings are likely atelectatic.[ IMPRESSION: Minor right basilar atelectasis. No acute findings. ACT 112: Negative or not required by law. Electronically signed by: Ricardo Cortes M.D. 04/05/2020 12:46 PM
--- NOTE | 2020-04-05 13:43 | Consultation ---
Date of Consultation April 05, 2020 Assessment & Plan (1) Femoral artery occlusion: Pt may have some mild claudication sx, but otherwise is asymptomatic from her BL SFA occlusions and does not require vascular surgical intervention at this time. Advised pt that we would reeval her as outpt in office in 1 month, since she does not have any acute sx. Advised her to cx her appts with us if she decides she wants to follow with [facility] vascular instead. Otherwise, we will try to obtain her previous records regarding carotid stenosis. Please call if needed. History of Present Illness Reason for Consultation: PAD Attending Physician: aKtt Vogel MD History of Present Illness 65 yo f with multiple medical problems, including CAD, head and neck ca s/p radiation and requiring tracheostomy, GERD, HTN, hyperlipidemia, admitted for replacement of tracheostomy, seen in consultation today for PAD noted on BLE arterial US. Pt states she has occasional aching in BLE, worse in RLE than LLE, and that it is sometimes noted with ambulation, but also at rest and when lying in bed. Denies foot or toe pain. Admits restless legs at night and occasional numbness. Denies rest pain, but states her ambulation is limited d/t deconditioning and BL thigh/calf aching. Admits hx of cervical spine and lumbar spine problems. No records available regarding carotid stenosis, but pt states she recently had an US and was told that her R ICA stenosis has not changed and does not need surgery. No previous hx of PAD per pt. Denies FERRER, fever, chest pain, SOB, abd pain, N/V, unilateral weakness, facial droop, other concerns. BLE arterial US demonstrates BL SFA occlusions with REAGAN of 0.6 and 0.7. Allergies Allergy/AdvReac Type Severity Reaction Status Date / Time bee venom protein (honey bee) Allergy Severe Anaphylaxis Verified 04/04/20 12:09 acetaminophen [From Percocet] Allergy Intermediate Vomiting Verified 04/04/20 12:09 latex Allergy Intermediate SKIN Verified 04/04/20 12:09 BLISTERS oxycodone [From Percocet] Allergy Intermediate Vomiting Verified 04/04/20 12:09 Home Medications Medication Instructions Recorded Confirmed Type clopidogrel 75 mg PO QAM 11/25/17 04/04/20 History furosemide [Lasix] 20 mg PO DAILY 03/01/19 04/04/20 History metoprolol tartrate 12.5 mg PO BID 03/01/19 04/04/20 History soft lens rinse,store solution 03/01/19 03/01/19 History [Saline Sensitive Eyes] atorvastatin 20 mg PO DAILY 10/31/19 04/04/20 History buspirone 5 mg PO BID PRN 10/31/19 04/04/20 History omeprazole 20 mg PO DAILY 10/31/19 04/04/20 History venlafaxine 75 mg PO BID 10/31/19 04/04/20 History levothyroxine 50 mcg PO DAILYBB 04/04/20 04/04/20 History Patient History Medical History Anxiety CAD (coronary artery disease) 2007 - LAD stent 2016 - LITTLE to mid LAD Carotid stenosis Carpal tunnel syndrome COPD (chronic obstructive pulmonary disease) Dysphagia Head and neck cancer Helicobacter pylori antibody positive Herniated disc LOWER BACK History of respiratory failure Hypertension Hyponatremia Hypothyroidism Laryngeal cancer S/P TRACH + PEG TUBE PLACEMENT, RADIATION PEG (percutaneous endoscopic gastrostomy) adjustment/replacement/removal Tracheostomy in place Surgical History History of bronchoscopy History of cardiac cath 2007 - [facility] - 2 STENTS PLACED - FOLLOWS W/ DR. MONTENEGRO 2016 - ABN STRESS TEST - [facility] - NO STENTS/ANGIOPLASTY History of heart artery stent History of laryngoscopy W/ BIOPSY History of partial gastrectomy due to fistula from PEG tube History of tonsillectomy and adenoidectomy History of tracheostomy History of tracheostomy S/P percutaneous endoscopic gastrostomy (PEG) tube placement Family History Daughter Family history of reaction to anesthesia SLOW TO WAKE Father Family hx of colon cancer Other Colon cancer No pertinent family history Social History Smoking Status: Current every day smoker Tobacco Type: Cigarettes Cigarettes Per Day: 1/2 PPD; Second Hand Exposure: Yes; Hx Alcohol Use: Yes (hasn't had ETOH for 1 month) Alcohol type: beer Hx Substance Use: No Preferred Language: French Communication Ability: Effective Metal Model Maker Required: No Beliefs That Will Affect Care: None marital status: Current Living Situation: Alone current occupational status: retired Feels Safe at Home: Yes Assistive Devices: Glasses Review of Systems Review of Systems: All systems reviewed & are unremarkable except as noted in HPI & below Physical Exam Constitutional: + thin, + frail appearing, cooperative and comfortable; not disheveled and not in distress Obtaining accurate HPI is challenging d/t tracheostomy. Eyes: PERRL, conjunctivae normal, anicteric sclerae ENMT: Ears: no hearing impairment Neck: + tracheostomy present Respiratory: normal respiratory effort, lungs clear to auscultation Auscultation: + diminished lung sounds Cardiovascular: RRR, no murmur, no edema Vessels: femoral pulses present, posterior tibial pulses present (nonpalpable), dorsalis pedis pulses present, brachial pulses present and radial pulses present; + abnormal peripheral pulses Extremities: normal capillary refill; no edema Gastrointestinal (Abdomen): normal bowel sounds, soft, nontender, no hepatosplenomegaly Musculoskeletal: no cyanosis or clubbing, extremities motor strength 5/5 Skin: no rashes, warm and dry (toes with blanchable purple/red purpura, chronic for years per pt) no mottling and no pallor Neurologic: moves all extremities; no focal motor deficits and not confused Psychiatric: A+Ox3, euthymic affect Results & Data ([facility]) Vital Signs (Past 12 Hours) Vital Signs Temp Pulse Pulse Resp BP BP Pulse Ox 04/05/20 12:20 36.8 C 101 H 20 97/64 L 95 04/05/20 08:20 36.9 C 100 H 18 92/57 L 95 04/05/20 07:20 91 H 04/05/20 04:08 37.2 C 72 18 98/55 L 95
--- NOTE | 2020-04-05 15:31 | Pulmonology Progress Note ---
Date of Service April 05, 2020 Assessment & Plan (1) History of tracheostomy: Patient is stable with a size 4 uncuffed Shiley tracheostomy. If the patient wants her tracheostomy upsized, I would recommend that only ENT change her tracheostomy out at this point given the high risk of bleeding especially given that the patient is on Plavix. There is a high likelihood of sudden decompensation given the difficulty with placement of the size 4 uncuffed Shiley tracheostomy. This should be done in a controlled setting with expertise of an ENT physician. Recommend using as needed humidified oxygen to loosen her secretions. I would strongly discourage her placing Q-tips or other foreign bodies in her tracheostomy as she has been doing. I placed an order for saline nasal spray assess the patient was requesting this for postnasal drip. Please have the patient complete a 5-day course of antibiotics for possible tracheitis. Pulmonary will sign off at this time. Thank you for the consult. (2) Head and neck cancer: (3) Anxiety: (4) Tracheitis: (5) Mucus plugging of bronchi: (6) Post-nasal drip: Admission and Anticipated Discharge Date Admission Date: April 04, 2020 Subjective Patient seen this afternoon. She had some trouble with thick secretions. She is wanting her tracheostomy upsized to a size 6 Shiley. She is complaining of trouble with clearance from the tracheostomy that she has presently. Review of Systems Review of Systems: All systems reviewed & are unremarkable except as noted in HPI & below Physical Exam Constitutional: WD/WN, vitals as above Eyes: PERRL, conjunctivae normal, anicteric sclerae ENMT: external ear and nose normal, oropharynx normal Neck: trachea midline, no thyromegaly Size [address] Respiratory: normal respiratory effort, lungs clear to auscultation Cardiovascular: RRR, no murmur, no edema Gastrointestinal (Abdomen): normal bowel sounds, soft, nontender, no hepatosplenomegaly Musculoskeletal: no cyanosis or clubbing, extremities motor strength 5/5 Skin: no rashes, warm and dry Neurologic: PERRL, EOMI, accommodation nl, no face palsy, no dysarthria Psychiatric: A+Ox3, euthymic affect Results & Data Results & Data ([facility]) Vital Signs (Past 12 Hours) Vital Signs Temp Pulse Pulse Resp BP BP Pulse Ox 04/05/20 12:20 98.2 F 101 H 20 97/64 L 95 04/05/20 08:20 98.4 F 100 H 18 92/57 L 95 04/05/20 07:20 91 H 04/05/20 04:08 99.0 F 72 18 98/55 L 95 vitals signs reviewed, labs and imaging reviewed PG Care Time/CCT Total # of Minutes Spent Total Time Spent with Patient: Total time spent is greater than 50% in coordination of care (as documented) at patient's floor/unit and/or counseling patient: Coding Level of Care Code 40462 Subseq Hosp Care Lvl 3 Diagnoses History of tracheostomy Z98.890 Head and neck cancer C76.0 Anxiety F41.9 Tracheitis J04.10 Mucus plugging of bronchi J98.09 Post-nasal drip R09.82
[2020-04-05] MEDS ORDERED: Nursing to Pharmacy Communication SCH (18:15)
[2020-04-05] MEDS ORDERED: SODIUM CHLORIDE 0.65% NA SOLN 45 ML (OCEAN) PRN (18:19)
[2020-04-05] MEDS ORDERED: SODIUM CHLORIDE 0.65% NA SOLN 45 ML (OCEAN) SCH (21:00)
== END 2020-04-05 19:44 | disposition home or self-care (01) ==
LOC: ED 10:54 → INTOOBSV 14:03 → 2S 14:03

== ENCOUNTER 2021-01-22 20:37 | Inpatient (IN) ==
[2021-01-22 21:56] LABS: Basophils # (auto) 0.01 K/uL (0-0.2); Basophils % (auto) 0.1 %; Eosinophils # (auto) 0.02 K/uL (0-0.5); Eosinophils % (auto) 0.1 %; Hematocrit (blood only) 31.2 % (37-47); Hemoglobin 11.1 g/dL (12.0-16.0); Immature Granulocytes # (auto) 0.13 K/uL (0.00-0.02); Immature Granulocytes % (auto) 0.7 %; Lymphocytes # (auto) 1.54 K/uL (1.2-3.4); Mean Corpuscular Hemoglobin 30.3 pg (25-34); Mean Corpuscular Hgb Conc 35.6 g/dL (32-36); Mean Corpuscular Volume 85.2 fL (80-100); Mean Platelet Volume 9.5 fL (7.4-10.4); Monocytes # (auto) 0.52 K/uL (0.11-0.59); Monocytes % (auto) 2.7 %; Neutrophils # (auto) 17.01 K/uL (1.4-6.5); Neutrophils % (auto) 88.4 %; Nucleated RBC # (auto) 0.03 K/uL (0-0); Nucleated RBC % (auto) 0.1 %; Platelet Count 580 K/uL (130-400); RDW Standard Deviation 70.6 fL (36.4-46.3); Red Blood Count 3.66 M/uL (4.2-5.4); White Blood Count 19.23 K/uL (4.8-10.8)
[2021-01-22 22:19] LABS: BUN Creatinine Ratio 17.8 (10-20); Calcium 8.7 mg/dl (8.5-10.1); Creatinine Clr Calc Pharmacy 56.2 ml/min; Est GFR (African American) 89.8 ml/min; Est GFR (Non-African American) 77.5 ml/min; Potassium 3.6 mmol/L (3.5-5.1)
[2021-01-22 22:26] LABS: Troponin I 0.709 ng/ml (0-0.045)
[2021-01-22] MEDS ORDERED: SODIUM CHLORIDE 0.9% 1000ML 1,000 ML IV SCH (23:50)
[2021-01-23 00:01] LABS: Anisocytosis Present
--- NOTE | 2021-01-23 00:03 | Emergency Department Note ---
Impression & Plan Elevated troponin, Community acquired pneumonia ADMIT ED Provider Note HPI: The patient is a 65-year-old female with history of coronary artery disease status post 2 stents in 2007 and 2016, history of supraglottic SCC Status post tracheostomy about 5 years ago, presents the emergency department with a chief complaint of worsening cough over about the past week. Patient states that she has been on azithromycin and Augmentin without relief of her cough, states she h as been coughing up some blood tinged mucus, states her cough has been worsening and she also has some acute on chronic back pain. Patient denies any chest pain, states she does have some mild shortness of breath. On arrival to the ED the patient is hemodynamically stable, she is saturating well on room air, she is afebrile, otherwise no acute distress on my initial evaluation. ROS: - Pulmonary: Cough, shortness of breath, productive cough of blood-tinged mucus - MSK: Upper back pain *10 point review systems was conducted and is otherwise negative unless stated above *Outpatient medications and allergy history reviewed PE: General: Alert, NAD HEENT: Normocephalic, atraumatic, Tracheostomy midline without any surrounding bleeding or erythema Eyes: Extraocular eye movement is intact, no scleral erythema Pulmonary: Slightly coarse breath sounds bilaterally with diminished sounds at the left lung base Cardio: Regular rate and rhythm GI: Abdomen is soft, nontender : No suprapubic tenderness MSK: No evidence of trauma or malformation of the extremities, no edema Skin: No evidence of rash Neuro: Alert, no focal deficits 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 Heart is mildly enlarged. There is dense coronary artery atherosclerotic change. There are moderate atherosclerotic changes in the thoracic aorta. There is no pulmonary embolism Thoracic esophagus appears normal. There is a tracheostomy tube. Tip is in the thoracic trachea. There are prominent mediastinal lymph nodes. The largest nodes are in the precarinal space measuring 1.2 x 1.4 cm. There are multifocal dense areas of airspace consolidation. This is most confluent in the left lower lobe and there is central course air density suggesting necrosis and cavity formation within an area of pneumonia . There is no pleural fluid collection, or pneumothorax. Impression: No pulmonary embolism. Dense airspace consolidation in the left lower lobe with central cavitation likely reflecting pneumonia. Tracheostomy tube in standard position. Mediastinal lymph nodes likely related to pulmonary inflammation. CT HEAD: Comparison made to prior study of October 20, 2017. No ICH, mass effect or edema. No evidence of acute cortical stroke. Visualized sinuses and mastoid air cells are clear. 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 She states she has had some blood-tinged mucus that she has been coughing up. On arrival to the ED the patient is saturating well on room air, she is generally nontoxic-appearing on my initial assessment. Lab work was obtained, patient was placed on the monitor, IV fluids were order ed. Lab work shows evidence of a significant leukocytosis greater than 18,000, also noted for troponin elevation at 0.7, patient denies any chest pain but does complain of some acute on chronic back pain therefore I did obtain CT angiography of the chest that shows evidence of a dense left lung consolidation with possible central necrosis, no evidence of aortic dissection, no evidence of pulmonary embolism. Patient denies any anterior chest pain, her EKG does not show any acute ischemic changes. I suspect there may be an element of demand ischemia given her ongoing pneumonia.Lactic acid is also slightly elevated at 2.1, given the patient's hemodynamic stability she was given 1 L of normal saline and none further Given stable blood pressure and concern for possible fluid overload.Patient later did request a CT image of her head as well, states she has had some intermittent headaches, this was performed and shows no evidence of any acute intracranial process. Patient is on aspirin and Plavix and she did take these medications this morning, she has had some blood-tinged sputum will hold off on any heparin or aspirin at this time given that she does not have any chest pain. Case was discussed with the on-call hospitalist through [email or web address], Dr. Ayers, and the patient was accepted to a telemetry bed for further management of pneumonia, failure of outpatient therapy on antibiotics, and elevated troponin. * Diagnosis: Community-acquired pneumonia, elevated troponin, failure of outpatient therapy on antibiotics * Disposition: Admission to telemetry David Singh DO Emergency Medicine Past Med/Surg History Medical History (Updated 01/23/21 @ 01:37 by David Singh DO) CAD (coronary artery disease) 2008 - LAD stent 2016 - LITTLE to mid LAD Carotid stenosis Carpal tunnel syndrome COPD (chronic obstructive pulmonary disease) Dysphagia Helicobacter pylori antibody positive Herniated disc LOWER BACK History of respiratory failure Hypertension Hyponatremia Hypothyroidism Hypoxia Laryngeal cancer S/P TRACH + PEG TUBE PLACEMENT, RADIATION Mucus plugging of bronchi PEG (percutaneous endoscopic gastrostomy) adjustment/replacement/removal Post-nasal drip Tracheostomy complication Tracheostomy in place Surgical History (Updated 04/06/20 @ 00:05 by Vic Vela) History of bronchoscopy History of cardiac cath 2007 - [facility] - 2 STENTS PLACED - FOLLOWS W/ DR. 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 History of tonsillectomy and adenoidectomy History of tracheostomy S/P percutaneous endoscopic gastrostomy (PEG) tube placement Family History Daughter Family history of reaction to anesthesia SLOW TO WAKE Father Family hx of colon cancer Other Colon cancer No pertinent family history Social History Smoking Status: Never smoker Tobacco Type: Cigarettes Cigarettes Per Day: 1/2 PPD; Second Hand Exposure: Yes; Hx Alcohol Use: Yes (hasn't had ETOH for 1 month) Alcohol type: beer Hx Substance Use: No Preferred Language: Divehi Communication Ability: Effective 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 Beliefs That Will Affect Care: None marital status: Current Living Situation: Alone current occupational status: retired Feels Safe at Home: Yes Assistive Devices: None Allergies Allergies Allergy/AdvReac Type Severity Reaction Status Date / Time bee venom protein (honey bee) Allergy Severe Anaphylaxis Verified 01/23/21 00:54 acetaminophen [From Percocet] Allergy Intermediate Vomiting Verified 01/23/21 00:54 latex Allergy Intermediate SKIN Verified 01/23/21 00:54 BLISTERS oxycodone [From Percocet] Allergy Intermediate Vomiting Verified 01/23/21 00:54 Home Meds Home Medications Medication Instructions Recorded Confirmed clopidogrel 75 mg tablet 75 mg PO QAM 11/25/17 01/23/21 furosemide 20 mg tablet (Lasix) 20 mg PO DAILY 03/01/19 01/23/21 metoprolol tartrate 25 mg tablet 25 mg PO BID 03/01/19 01/23/21 soft lens rinse,store solution 03/01/19 03/01/19 (Saline Sensitive Eyes) atorvastatin 20 mg tablet 20 mg PO HS 10/31/19 01/23/21 buspirone 5 mg tablet 5 mg PO BID PRN 10/31/19 01/23/21 venlafaxine 75 mg tablet 75 mg PO BID 10/31/19 01/23/21 levothyroxine 50 mcg tablet 50 mcg PO DAILYBB 04/04/20 01/23/21 acetaminophen 325 mg tablet 650 mg PO DIRECTED PRN 01/23/21 01/23/21 (Tylenol) albuterol sulfate 2.5 mg INHALATION Q6H PRN 01/23/21 01/23/21 albuterol sulfate 90 mcg/actuation 2 puff INHALATION Q4 PRN 01/23/21 01/23/21 aerosol inhaler amoxicillin 875 mg-potassium 1 tab PO BID 01/23/21 01/23/21 clavulanate 125 mg tablet aspirin 81 mg tablet,delayed 81 mg PO DAILY 01/23/21 01/23/21 release ferrous sulfate 325 mg (65 mg 325 mg PO BID 01/23/21 01/23/21 iron) tablet fexofenadine 180 mg tablet 180 mg PO DAILY 01/23/21 01/23/21 fluticasone propionate 50 2 spray INTRANASAL DAILY 01/23/21 01/23/21 mcg/actuation nasal spray,suspension sennosides 8.6 mg tablet (senna) 8.6 mg PO DAILY PRN 01/23/21 01/23/21 triamcinolone acetonide 0.1 % 1 applic TOPICAL DIRECTED PRN 01/23/21 01/23/21 topical cream Previous Rx's Medication Instructions Recorded sodium chloride 0.65 % nasal spray 2 spray NA BID #1 ml 04/05/20 aerosol (Saline Mist) Results & Data (ED) Vital Signs Vital Signs - 24 hr 01/22/21 20:45 01/23/21 00:27 Temperature 35.8 C L Temperature Source Temporal Artery Scan Pulse Rate 102 H Pulse Rate from SpO2 Sensor 101 H Respiratory Rate 18 19 Blood Pressure 108/69 Blood Pressure Mean 82 Blood Pressure Position Sitting Pulse Oximetry 98 97 Oxygen Delivery Method Room Air Sepsis Recent Fever Within 48 Hours No Sepsis New/Unexplained Change in Mental Status No Sepsis Action Taken by Nursing No Action Required Laboratory Data Result diagrams: 01/22/21 21:31 01/22/21 21:31 Lab Results 01/22/21 01/22/21 01/23/21 Range/Units 21: 21: 00:00 WBC 19.23 H (4.8-10.8) K/uL RBC 3.66 L (4.2-5.4) M/uL Hgb 11.1 L (12.0-16.0) g/dL Hct 31.2 L (37-47) % MCV 85.2 (80-100) fL MCH 30.3 (25-34) pg MCHC 35.6 (32-36) g/dL RDW Std Deviation 70.6 H (36.4-46.3) fL RDW Coeff of Jair 23.0 H (11.5-14.5) % Plt Count 580 H (130-400) K/uL MPV 9.5 (7.4-10.4) fL Immature Gran % (Auto) 0.7 % Neut % (Auto) 88.4 % Lymph % (Auto) 8.0 % Collin % (Auto) 2.7 % Eos % (Auto) 0.1 % Baso % (Auto) 0.1 % Neut # (Auto) 17.01 H (1.4-6.5) K/uL Lymph # (Auto) 1.54 (1.2-3.4) K/uL Collin # (Auto) 0.52 (0.11-0.59) K/uL Eos # (Auto) 0.02 (0-0.5) K/uL Baso # (Auto) 0.01 (0-0.2) K/uL Immature Gran # (Auto) 0.13 H (0.00-0.02) K/uL Absolute Nucleated RBC 0.03 H (0-0) K/uL Nucleated RBC % (auto) 0.1 % Anisocytosis Present Sodium 126 L (136-145) mmol/L Potassium 3.6 (3.5-5.1) mmol/L Chloride 89 L (98-107) mmol/L Carbon Dioxide 25 (21-32) mmol/L Anion Gap 13.0 H (3-11) BUN 14 (7-18) mg/dl Creatinine 0.79 (0.6-1.2) mg/dl Est Cr Clr Drug Dosing 56.2 ml/min Est GFR ( Amer) 89.8 ml/min Est GFR (Non-Af Amer) 77.5 ml/min BUN/Creatinine Ratio 17.8 (10-20) Glucose 103 H (70-99) mg/dl Lactate 2.1 H* (0.4-2.0) mmol/L Calcium 8.7 (8.5-10.1) mg/dl Troponin I 0.709 H* (0-0.045) ng/ml COVID-19 Eval Order 01/23/21 Range/Units 00:30 WBC (4.8-10.8) K/uL RBC (4.2-5.4) M/uL Hgb (12.0-16.0) g/dL Hct (37-47) % MCV (80-100) fL MCH (25-34) pg MCHC (32-36) g/dL RDW Std Deviation (36.4-46.3) fL RDW Coeff of Jair (11.5-14.5) % Plt Count (130-400) K/uL MPV (7.4-10.4) fL Immature Gran % (Auto) % Neut % (Auto) % Lymph % (Auto) % Collin % (Auto) % Eos % (Auto) % Baso % (Auto) % Neut # (Auto) (1.4-6.5) K/uL Lymph # (Auto) (1.2-3.4) K/uL Collin # (Auto) (0.11-0.59) K/uL Eos # (Auto) (0-0.5) K/uL Baso # (Auto) (0-0.2) K/uL Immature Gran # (Auto) (0.00-0.02) K/uL Absolute Nucleated RBC (0-0) K/uL Nucleated RBC % (auto) % Anisocytosis Sodium (136-145) mmol/L Potassium (3.5-5.1) mmol/L Chloride (98-107) mmol/L Carbon Dioxide (21-32) mmol/L Anion Gap (3-11) BUN (7-18) mg/dl Creatinine (0.6-1.2) mg/dl Est Cr Clr Drug Dosing ml/min Est GFR ( Amer) ml/min Est GFR (Non-Af Amer) ml/min BUN/Creatinine Ratio (10-20) Glucose (70-99) mg/dl Lactate (0.4-2.0) mmol/L Calcium (8.5-10.1) mg/dl Troponin I (0-0.045) ng/ml COVID-19 Eval Order Covid19 at [facility] Administered Medications Azithromycin 500 mg/ Dextrose 255 mls @ 127.5 mls/hr IV NOW STA Stop: 01/23/21 02:03 Last Admin: 01/23/21 00:55 Dose: 127.5 mls/hr Documented by: [id number] Discontinued Medications Sodium Chloride (Nss 1000ml) 1,000 mls @ 999 mls/hr IV .Q1H1M JUANY Stop: 01/23/21 00:50 Last Admin: 01/22/21 23:58 Dose: 999 mls/hr Documented by: [id number] Ioversol (Optiray 320 125ml) 125 ml IV ONCE ONE Stop: 01/23/21 01:01 Last Admin: 01/23/21 01:01 Dose: 87 ml Documented by: [id number] Morphine Sulfate (Morphine Sulfate 4 Mg/Ml 1 Ml Carp\Vial) 4 mg IV NOW STA Stop: 01/23/21 00:17 Last Admin: 01/23/21 00:25 Dose: 4 mg Documented by: [id number] Ondansetron HCl (Ondansetron Inj 2 Mg/Ml 2 Ml Vial) 4 mg IV NOW STA Stop: 01/23/21 00:18 Last Admin: 01/23/21 00:25 Dose: 4 mg Documented by: [id number] Discharge Plan Visit Data Chief Complaint: Respiratory Distress Stated Complaint: PNUEMONIA IS WORSENING, BLOODY MUCUS IN TRACH ED Provider: David Singh Discharge Problem: Elevated troponin, Community acquired pneumonia Forms Stand Alone Forms: My [facility] Prescriptions Prescriptions: No Action buspirone 5 mg tablet 5 mg PO BID PRN (Reason: Anxiety) RF: 0 atorvastatin 20 mg tablet 20 mg PO HS RF: 0 venlafaxine 75 mg tablet 75 mg PO BID RF: 0 clopidogrel 75 mg tablet 75 mg PO QAM RF: 0 furosemide [Lasix] 20 mg Tablet 20 mg PO DAILY RF: 0 metoprolol tartrate 25 mg Tablet 25 mg PO BID RF: 0 (DME) Saline Sensitive Eyes Drops MISCELLANEOUS RF: 0 levothyroxine 50 mcg tablet 50 mcg PO DAILYBB RF: 0 sodium chloride [Saline Mist] 0.65 % Aerosol,Trinity 2 spray NA BID Qty: 1 RF: 0 sennosides [senna] 8.6 mg Tablet 8.6 mg PO DAILY PRN (Reason: Constipation) RF: 0 acetaminophen [Tylenol] 325 mg Tablet 650 mg PO DIRECTED PRN (Reason: FEVER/PAIN) RF: 0 albuterol sulfate 2.5 mg /3 mL (0.083 %) solution for nebulization 2.5 mg inhalation Q6H PRN (Reason: Shortness Of Breath) RF: 0 fexofenadine [Marylou] 180 mg Tablet 180 mg PO DAILY RF: 0 aspirin 81 mg Tablet,Delayed Release (Dr/Ec) 81 mg PO DAILY RF: 0 triamcinolone acetonide 0.1 % Cream 1 applic TOPICAL DIRECTED PRN (Reason: Skin Irritation) RF: 0 ferrous sulfate 325 mg (65 mg iron) tablet 325 mg PO BID RF: 0 albuterol sulfate 90 mcg/actuation HFA aerosol inhaler 2 puff INHALATION Q4 PRN (Reason: Shortness Of Breath) RF: 0 fluticasone propionate [Flonase] 50 mcg/actuation Trinity,Suspension 2 spray INTRANASAL DAILY RF: 0 amoxicillin-pot clavulanate 875-125 mg tablet 1 tab PO BID RF: 0 Referrals Referrals: Paola Wilsno MD [Primary Care Provider] - Discharge Problem: Community acquired pneumonia Qualifiers: Laterality: left Lung location: lower lobe of lung Qualified Code(s): J18.9 - Pneumonia, unspecified organism
[2021-01-23] MEDS ORDERED: AZITHROMYCIN 500 MG in DEXTROSE 5% 250 ML IV STA (00:04)
[2021-01-23] MEDS ORDERED: CEFEPIME 2,000 MG/20 ML VIAL IV STA (00:04)
[2021-01-23] MEDS ORDERED: MoRPHine SULFATE 4 MG/ML 1 ML CARP\\VIAL IV STA (00:16)
[2021-01-23] MEDS ORDERED: ONDANSETRON INJ 2 MG/ML 2 ML VIAL IV STA (00:17)
[2021-01-23] MEDS ORDERED: OPTIRAY 320 125ml IV ONE (01:00)
[2021-01-23] MEDS ORDERED: VANCOMYCIN CONSULT ACTIVE PRN (01:51)
[2021-01-23] MEDS ORDERED: VANCOMYCIN HCL 1,500 MG in SODIUM CHLORIDE 0.9% 500 ML IV STA (02:04)
--- NOTE | 2021-01-23 02:16 | History & Physical Report ---
Date of Service January 23, 2021 Assessment & Plan (1) Sepsis: Plan: Severe sepsis SIRS plus lactic acid elevation Secondary to pneumonia Possible aspiration pneumonia given aspiration risk as per family Failed outpatient treatment Hemoptysis secondary to above in the setting of antiplatelet Rx hx CAD status post stent/ hx PVD Hemoglobin better than baseline Troponin elevation secondary to illness hypertension, BP currently on the lower side COPD, possible mild exacerbation given occasional expiratory wheezes on exam Pulmonary hypertension as per records laryngeal cancer status post radiation Status post tracheostomy secondary to supraglottic edema Acute on chronic hyponatremia secondary to illness, alcohol intake possibly contributory ongoing tobacco abuse PCU given troponin elevation and low BP IVF, follow lactic acid CS, Vanco, Zosyn Nebs, Solu-Medrol 1 dose for possible COPD exacerbation given wheezing on exam, may benefit from additional steroid Rx Aspiration precautions, swallow eval Pulmonary consult Re: Hemoptysis Appropriate to hold antiplatelet Rx for now given hemoptysis Trend H&H, transfuse PRBC if hemoglobin less than 8 and or for symptomatic anemia Appropriate to hold home BP meds for now given borderline BP Follow troponin, TTE if with progression Nicotine patch as needed DVT prophylaxis. TEDS RE hemoptysis, SCDs contraindicated given history LE PAD Full code Patient daughter requesting updates for providers. Rhona Birmingham, contact #[phone]. Text document was generated using [employer] voice recognition software. It may contain grammatical or spelling errors. Kindly contact undersigned for clarification of any documentation item in question. History of Present Illness Chief Complaint: Worsening hemoptysis Primary Care Provider: Paola Wilson MD History obtained from patient, family, and records. Medical history significant for CAD status post stent, PVD, hypertension, COPD, pulmonary hypertension as per records, laryngeal cancer status post tracheostomy (secondary to supraglottic edema)/radiation, chronic anemia (baseline hemoglobin 10), chronic hyponatremia as per records, ongoing tobacco abuse, history aspiration risk as per family Last confinement March 2020 for tracheitis. 1 week history of sinus congestion, worsening hemoptysis, shortness of breath. Known aspiration risk as per daughter. Outpatient COVID-19 test was negative. Outpatient CXR showed left lower lobe pneumonia. Augmentin added to azithromycin course. Worsening shortness of breath, back pain, symptoms despite compliance with regimen. No abdominal pain. Stool is always dark from iron as per patient family. Patient brought to the ER for evaluation. Medical History as above Surgical History : Carpal tunnel surgery, tracheoscopy/direct laryngoscopy, tracheostomy, right neck lump removal, tonsillectomy, partial gastrectomy Family History : Colon cancer, heart disease, silicosis, suicide Personal/Social history : 1/2 pack daily; 4 ETOH drinks per week, denies abuse abuse concerns/corroborated by daughter; Allergies Allergy/AdvReac Type Severity Reaction Status Date / Time bee venom protein (honey bee) Allergy Severe Anaphylaxis Verified 01/23/21 00:54 acetaminophen [From Percocet] Allergy Intermediate Vomiting Verified 01/23/21 00:54 latex Allergy Intermediate SKIN Verified 01/23/21 00:54 BLISTERS oxycodone [From Percocet] Allergy Intermediate Vomiting Verified 01/23/21 00:54 Home Medications Medication Instructions Recorded Confirmed Type clopidogrel 75 mg tablet 75 mg PO QAM 11/25/17 01/23/21 History furosemide 20 mg tablet (Lasix) 20 mg PO DAILY 03/01/19 01/23/21 History metoprolol tartrate 25 mg tablet 25 mg PO BID 03/01/19 01/23/21 History soft lens rinse,store solution 03/01/19 03/01/19 History (Saline Sensitive Eyes) atorvastatin 20 mg tablet 20 mg PO HS 10/31/19 01/23/21 History buspirone 5 mg tablet 5 mg PO BID PRN 10/31/19 01/23/21 History venlafaxine 75 mg tablet 75 mg PO BID 10/31/19 01/23/21 History levothyroxine 50 mcg tablet 50 mcg PO DAILYBB 04/04/20 01/23/21 History sodium chloride 0.65 % nasal spray 2 spray NA BID #1 ml 04/05/20 01/23/21 Rx aerosol (Saline Mist) acetaminophen 325 mg tablet 650 mg PO DIRECTED PRN 01/23/21 01/23/21 History (Tylenol) albuterol sulfate 2.5 mg INHALATION Q6H PRN 01/23/21 01/23/21 History albuterol sulfate 90 mcg/actuation 2 puff INHALATION Q4 PRN 01/23/21 01/23/21 History aerosol inhaler amoxicillin 875 mg-potassium 1 tab PO BID 01/23/21 01/23/21 History clavulanate 125 mg tablet aspirin 81 mg tablet,delayed 81 mg PO DAILY 01/23/21 01/23/21 History release ferrous sulfate 325 mg (65 mg 325 mg PO BID 01/23/21 01/23/21 History iron) tablet fexofenadine 180 mg tablet 180 mg PO DAILY 01/23/21 01/23/21 History fluticasone propionate 50 2 spray INTRANASAL DAILY 01/23/21 01/23/21 History mcg/actuation nasal spray,suspension sennosides 8.6 mg tablet (senna) 8.6 mg PO DAILY PRN 01/23/21 01/23/21 History triamcinolone acetonide 0.1 % 1 applic TOPICAL DIRECTED PRN 01/23/21 01/23/21 History topical cream Past Med/Surg History Medical History (Updated 01/23/21 @ 05:01 by Hossein Veliz MD) CAD (coronary artery disease) 2007 - LAD stent 2016 - LITTLE to mid LAD Carotid stenosis Carpal tunnel syndrome COPD (chronic obstructive pulmonary disease) Dysphagia Helicobacter pylori antibody positive Herniated disc LOWER BACK History of respiratory failure Hypertension Hyponatremia Hypothyroidism Hypoxia Laryngeal cancer S/P TRACH + PEG TUBE PLACEMENT, RADIATION Mucus plugging of bronchi PEG (percutaneous endoscopic gastrostomy) adjustment/replacement/removal Post-nasal drip Tracheostomy complication Tracheostomy in place Surgical History (Updated 04/06/20 @ 00:05 by Vic Vela) History of bronchoscopy History of cardiac cath 2007 - [place] - [facility] - 2 STENTS PLACED - FOLLOWS W/ DR. 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 History of tonsillectomy and adenoidectomy History of tracheostomy S/P percutaneous endoscopic gastrostomy (PEG) tube placement Family History Daughter Family history of reaction to anesthesia SLOW TO WAKE Father Family hx of colon cancer Other Colon cancer No pertinent family history Social History Smoking Status: Current every day smoker Tobacco Type: Cigarettes Cigarettes Per Day: 1-2; Second Hand Exposure: Yes; Tobacco Cessation Education Requested by Patient: No Hx Alcohol Use: Yes Alcohol type: beer and wine Hx Substance Use: No Preferred Language: Hebrew Communication Ability: Effective Financial Health Counselor Required: No Beliefs That Will Affect Care: None marital status: Current Living Situation: Alone Current Living Situation Comment: Pt reports family lives close/able to help current occupational status: retired Other Information That Helps Us Care for You: No Feels Safe at Home: Yes Safety Concerns: Feels Safe At This Time Assistive Devices: Denture - Upper Review of Systems Review of Systems: As per HPI, all 10 systems reviewed, all other ROS negative Physical Exam Physical Exam: GENERAL: uncomfortable, episodic tachypnea SKIN: pallor , warm HEENT: Pale palpebral conjunctivae, no ptosis, dry buccal mucosa NECK : Supple, tracheostomy noted, no tenderness CHEST : Decreased breath sounds, occasional expiratory wheezes, no tenderness HEART : Tachycardic, no obvious murmurs ABDOMEN: Some distention, nontender EXTREMITIES : No LE swelling/tenderness, no other conspicuous deformities noted NEUROLOGIC : Coherent, no facial asymmetry, no other gross focality Results & Data Results & Data ([facility]) Vital Signs (Past 12 Hours) Vital Signs Temp Pulse Resp BP Pulse Ox 01/23/21 01:30 103 H 16 90/51 L 90 01/23/21 01:00 98 H 16 93 01/23/21 00:30 113 H 17 95 01/23/21 00:27 102 H 19 97 01/22/21 20:45 35.8 C L 18 108/69 98 Laboratory Results Laboratory Results WBC 19.23 K/uL (4.8-10.8) H 01/22/21 21:31 RBC 3.66 M/uL (4.2-5.4) L 01/22/21 21:31 Hgb 11.1 g/dL (12.0-16.0) L 01/22/21 21:31 Hct 31.2 % (37-47) L 01/22/21 21:31 MCV 85.2 fL (80-100) 01/22/21 21:31 MCH 30.3 pg (25-34) 01/22/21 21:31 MCHC 35.6 g/dL (32-36) 01/22/21 21:31 RDW Std Deviation 70.6 fL (36.4-46.3) H 01/22/21 21:31 RDW Coeff of Jair 23.0 % (11.5-14.5) H 01/22/21 21:31 Plt Count 580 K/uL (130-400) H 01/22/21 21:31 MPV 9.5 fL (7.4-10.4) 01/22/21 21:31 Immature Gran % (Auto) 0.7 % 01/22/21 21:31 Neut % (Auto) 88.4 % 01/22/21 21: Lymph % (Auto) 8.0 % 01/22/21 21:31 Yates % (Auto) 2.7 % 01/22/21 21:31 Eos % (Auto) 0.1 % 01/22/21 21: Baso % (Auto) 0.1 % 01/22/21 21: Neut # (Auto) 17.01 K/uL (1.4-6.5) H 01/22/21 21:31 Lymph # (Auto) 1.54 K/uL (1.2-3.4) 01/22/21 21:31 Yates # (Auto) 0.52 K/uL (0.11-0.59) 01/22/21 21:31 Eos # (Auto) 0.02 K/uL (0-0.5) 01/22/21 21:31 Baso # (Auto) 0.01 K/uL (0-0.2) 01/22/21 21: Immature Gran # (Auto) 0.13 K/uL (0.00-0.02) H 01/22/21 21:31 Absolute Nucleated RBC 0.03 K/uL (0-0) H 01/22/21 21:31 Nucleated RBC % (auto) 0.1 % 01/22/21 21:31 Anisocytosis Present 01/22/21 21:31 Sodium 126 mmol/L (136-145) L 01/22/21 21:31 Potassium 3.6 mmol/L (3.5-5.1) 01/22/21 21:31 Chloride 89 mmol/L (98-107) L 01/22/21 21:31 Carbon Dioxide 25 mmol/L (21-32) 01/22/21 21:31 Anion Gap 13.0 (3-11) H 01/22/21 21:31 BUN 14 mg/dl (7-18) 01/22/21 21:31 Creatinine 0.79 mg/dl (0.6-1.2) 01/22/21 21:31 Est Cr Clr Drug Dosing 56.2 ml/min 01/22/21 21:31 Est GFR ( Amer) 89.8 ml/min 01/22/21 21:31 Est GFR (Non-Af Amer) 77.5 ml/min 01/22/21 21:31 BUN/Creatinine Ratio 17.8 (10-20) 01/22/21 21:31 Glucose 103 mg/dl (70-99) H 01/22/21 21:31 Lactate 2.1 mmol/L (0.4-2.0) H* 01/23/21 00:00 Calcium 8.7 mg/dl (8.5-10.1) 01/22/21 21: Troponin I 0.709 ng/ml (0-0.045) H* 01/22/21 21:31 COVID-19 Eval Order Covid19 at [facility] 01/23/21 00:30 SARS-CoV-2 (PCR) NEGATIVE (Negative) 01/23/21 00:[address] head initial read: Comparison made to prior studyof October 20, 2017. No ICH, mass effect or edema. No evidence of acute cortical stroke. Visualized sinuses and mastoid air cells are clear CT chest initial read: Heart is mildlyenlarged. There is dense coronaryarteryatherosclerotic change. There are moderate atherosclerotic changes in the thoracic aorta. There is no pulmonaryembolism Thoracic esophagus appears normal. There is a tracheostomytube. Tip is in the thoracic trachea. There are prominent mediastinal lymph nodes. The largest nodes are in the precarinal space measuring 1.2 x 1.4 cm. There are multifocal dense areas of airspace consolidation. This is most confluent in the left lower lobe and there is central course air densitysuggesting necrosis and cavityformation within an area of pneumonia . There is no pleural fluid collection, or pneumothorax. Impression:No pulmonaryembolism. Dense airspace consolidation in the left lower lobe with central cavitation likelyreflecting pneumonia. Tracheostomytube in standard position. Mediastinal lymph nodes likelyrelated to pulmonaryinflammation. EKG as per my interpretation:Rate 100, NSR, normal axis, T wave inversion septal leads
[2021-01-23] MEDS ORDERED: PIPERACILLIN/TAZOBACTAM 4.5 GM/120 ML BAG IV ONE (02:19)
[2021-01-23] MEDS ORDERED: methylPREDNISolone 20 MG in SYRINGE 0 ML IV STA (02:20)
[2021-01-23] MEDS ORDERED: LEVALBUTEROL 1.25MG/0.5ML NEB INH STA (02:20)
[2021-01-23] MEDS ORDERED: XOPENEX/ATROVENT 1.25mg/0.5MG NEB COMBO NEB STA (02:20)
[2021-01-23] MEDS ORDERED: IPRATROPIUM BROMIDE NEB SOLN 0.02% 2.5 ML VIAL INH STA (02:20)
[2021-01-23] MEDS ORDERED: LORazepam 0.25 MG/0.5 ML VIAL IV STA (02:25)
[2021-01-23] MEDS ORDERED: PIPERACILL/TAZOBAC CONSULT ACTIVE PRN (02:51)
[2021-01-23] MEDS ORDERED: SENNA 8.6 MG TAB PO PRN (02:51)
[2021-01-23] MEDS ORDERED: SODIUM CHLORIDE 0.9% 1000ML 1,000 ML IV ONE (02:59)
[2021-01-23 03:11] LABS: Magnesium 2.1 mg/dl (1.8-2.4); Thyroid Stimulating Hormone 1.9 uIu/ml (0.300-4.500); Troponin I 0.599 ng/ml (0-0.045)
[2021-01-23] MEDS ORDERED: PIPERACILLIN/TAZOBACTAM 3.375 GM in DEXTROSE 5% 100 ML IV ONE (03:30)
[2021-01-23] MEDS ORDERED: LACTATED RINGER'S 1,000 ML IV ONE (04:00)
[2021-01-23 04:56] LABS: Albumin Level 1.6 gm/dl (3.4-5.0); Bilirubin Direct 0.3 mg/dl (0-0.2); Bilirubin,Total 0.5 mg/dl (0.2-1); Total Protein 7.2 gm/dl (6.4-8.2)
[2021-01-23 06:10] LABS: Basophils # (auto) 0.01 K/uL (0-0.2); Basophils % (auto) 0.1 %; Eosinophils # (auto) 0.09 K/uL (0-0.5); Eosinophils % (auto) 0.6 %; Hematocrit (blood only) 28.1 % (37-47); Hemoglobin 9.4 g/dL (12.0-16.0); Immature Granulocytes # (auto) 0.12 K/uL (0.00-0.02); Immature Granulocytes % (auto) 0.8 %; Lymphocytes # (auto) 1.17 K/uL (1.2-3.4); Lymphocytes % (auto) 7.9 %; Mean Corpuscular Hemoglobin 28.8 pg (25-34); Mean Corpuscular Hgb Conc 33.5 g/dL (32-36); Mean Corpuscular Volume 86.2 fL (80-100); Mean Platelet Volume 9.4 fL (7.4-10.4); Monocytes # (auto) 0.37 K/uL (0.11-0.59); Monocytes % (auto) 2.5 %; Neutrophils # (auto) 13.11 K/uL (1.4-6.5); Neutrophils % (auto) 88.1 %; Platelet Count 504 K/uL (130-400); RDW Coefficient of Variation 23.2 % (11.5-14.5); RDW Standard Deviation 71.7 fL (36.4-46.3); Red Blood Count 3.26 M/uL (4.2-5.4); White Blood Count 14.87 K/uL (4.8-10.8)
[2021-01-23] MEDS: LEVOTHYROXINE SODIUM 50 MCG TABLET PO SCH (06:27)
[2021-01-23 06:38] LABS: BUN Creatinine Ratio 22.6 (10-20); Calcium 7.8 mg/dl (8.5-10.1); Creatinine Clr Calc Pharmacy 65.3 ml/min; Est GFR (African American) 104.9 ml/min; Est GFR (Non-African American) 90.5 ml/min; Potassium 3.7 mmol/L (3.5-5.1)
[2021-01-23 06:55] LABS: Anisocytosis Present; Echinocytes 1+
--- NOTE | 2021-01-23 07:20 | CT Scan Report ---
HEAD CT NONCONTRAST CT DOSE: 537.48 mGy.cm HISTORY: Headache. TECHNIQUE: Multiaxial CT images of the head were performed without the use of intravenous contrast. A utomated exposure control was utilized for this study. A dose lowering technique was utilized adheri ng to the principles of ALARA. Comparison: None. Findings: The paranasal sinuses and mastoid air cells are clear. The calvarium and skull base are int act. The ventricles and sulci are within normal limits. There is no mass, hematoma, midline shift, or acute infarct. There is an old punctate lacunar infarct within the right caudate head. Impression: No acute intracranial abnormality. ACT 112: Negative or not required by law. Electronically signed by: Jesús Cohen M.D. 01/23/2021 7:18 AM
--- NOTE | 2021-01-23 07:32 | XRay Report ---
XR chest 1V portable HISTORY: 65 years-old Female Resiratory Distress acute respiratory distress COMPARISON: Chest radiograph 04/05/2020, CTA chest 01/23/2021 TECHNIQUE: Portable AP view of the chest FINDINGS: Cardiac silhouette is mildly enlarged. Tracheostomy cannula overlies the midline at the level the cla vicular heads. Atherosclerotic plaque of the aorta. Emphysema with chronic interstitial coarsening. D ense airspace consolidation of the left midlung with ill-defined central lucencies. Chronic appearing fracture of the distal right clavicle. Degenerative changes of the shoulders and spine. IMPRESSION: 1. Dense airspace consolidation of the left midlung suggestive of pneumonia. Ill-defined central luce ncies correspond to the cavitation seen on the CTA chest study of same day suggestive of cavitary pne umonia. Follow-up recommended to exclude an underlying cavitary lesion. 2. Cardiomegaly. 3. Emphysema. ACT 112: Negative or not required by law. The above report was generated using voice recognition software. It may contain grammatical, syntax o r spelling errors. Electronically signed by: Cristopher Tai M.D. 01/23/2021 7:30 AM
[2021-01-23] MEDS: SODIUM CHLORIDE 0.65% NA SOLN 45 ML (OCEAN) SCH ×2 (08:58→21:15)
[2021-01-23] MEDS: VENLAFAXINE HCL 37.5 MG TAB PO SCH ×2 (08:58→16:42)
[2021-01-23] MEDS: FEXOFENADINE HCL 180 MG TAB PO SCH (08:58)
[2021-01-23] MEDS: FERROUS SULFATE 325 MG TAB PO SCH ×2 (08:58→21:13)
--- NOTE | 2021-01-23 09:18 | CT Scan Report ---
CT angio chest PE protocol CLINICAL HISTORY: PE, also LLL infiltrate TECHNIQUE: Multidetector row helical CT of the chest was performed. Coronal and sagittal reformations were obtained. Automated dose lowering techniques and/or adjustment according to patient size were u tilized for this exam. Comparison: None available at the time of this dictation. FINDINGS: Lungs and pleura: Large consolidative opacities seen in the left lower lung with pneumatocele formati on. Tracheostomy tube tip is in the thoracic trachea. Heart and pericardium: There is cardiomegaly without evidence of pericardial effusion. Vessels: No evidence of pulmonary embolism. Moderate atherosclerotic changes are seen in the aorta an d coronary arteries. Mediastinum and jeanna: Multiple enlarged lymph nodes are seen in the mediastinum measuring up to 1.2 c m in short axis. There is suggestion of left hilar adenopathy as well. Chest wall and lower neck: Unremarkable. Abdomen: Unremarkable. Bones: Degenerative changes in the thoracic spine. IMPRESSION: 1. No evidence of pulmonary embolism. 2. Prominent left lower lobe airspace opacity with thick rim pneumatocele likely representing a deve loping pulmonary abscess. Mediastinal lymphadenopathy is likely reactive. ACT 112: Negative or not required by law. Electronically signed by: John Cedeno M.D. 01/23/2021 9:17 AM
--- NOTE | 2021-01-23 09:21 | Electrocardiogram Report ---
Test Reason : Blood Pressure : / mmHG Vent. Rate : 098 BPM Atrial Rate : 098 BPM P-R Int : 162 ms QRS Dur : 078 ms QT Int : 378 ms P-R-T Axes : 029 070 071 degrees QTc Int : 482 ms Poor data quality, interpretation may be adversely affected Normal sinus rhythm Normal ECG When compared with ECG of 01-MAR-2019 15:38, No significant change was found Confirmed by Kip Cabrera ([id number]) on 01/23/2021 9:21:30 AM Referred By: REFERRED SELF Confirmed By:Kip Cabrera
[2021-01-23] MEDS: FLUTICASONE PROPIONATE NA SPR 16 GM BTL SCH (10:12)
[2021-01-23] MEDS: HYDROCODONE/ACETAMOPHEN 5/325MG TAB PO PRN ×2 (10:25→17:19)
--- NOTE | 2021-01-23 12:28 | Emergency Department Note ---
ED Visit Note Patient has been boarding in the emergency department admitted to the hospital awaiting an inpatient bed upstairs. Called to bedside by nursing staff as the patient had decannulated her trach. Patient admitted to the [facility] team with sepsis and pneumonia. Patient evidently felt things were getting stuck and pulled out her trach by herself in her room. She had clotted in it and she removed the blood. Upon entering the room respiratory was at bedside and the patient was in the high 80s on room air. The patient was trying unsuccessfully to replace her trach. Given the patient's status I emergently placed gloves and utilized a bit of saline lubrication to replace the tracheostomy 6 Shiley without difficulty. Patient had improvement of her respiratory status with this. Respiratory continue to secure the Shiley with Velcro neck collar and humidified oxygen. Discussed with the patient asking for assistance rather than emergently removing her tracheostomy to prevent difficulties in the future. Inpatient team made aware. . : Community acquired pneumonia Qualifiers: Laterality: left Lung location: lower lobe of lung Qualified Code(s): J18.9 - Pneumonia, unspecified organism
[2021-01-23] MEDS: PIPERACILLIN/TAZOBACTAM 3.375 GM in DEXTROSE 5% 100 ML IV SCH ×2 (13:07→21:00)
--- NOTE | 2021-01-23 13:24 | Pharmacy Report ---
Pharmacy Vanc AUC Short Note - Date of Service January 23, 2021 - Assessment & Plan Assessment 65 year old F receiving IV vancomycin and zosyn for treatment of possible pneumonia. Blood cultures pending, MRSA nasal (-). Day #1 of antimicrobial therapy. Plan Vancomycin * AUC/ANTON is the preferred PK/PD target for vancomycin * AUC guided dosing is effective and associated with decreased risk of nephrotoxicity compared to traditional trough targets * Trough level of 12 mcg/mL is predicted to achieve target AUC/ANTON of 400-600 mg/L.hr and may be associated with a 7 % risk of nephrotoxicity * S/p vancomycin 1500mg IV loading dose. Begin maintenance regimen of 1500mg IV q24h. * Will obtain a trough around steady state if vancomycin continued. Pharmacy will continue to follow and will adjust dose/frequency as necessary. Thank you.
--- NOTE | 2021-01-23 14:50 | Pulmonary Consultation ---
Date of Consultation January 23, 2021 Assessment & Plan (1) Pneumonia: (2) Sepsis: (3) Dysphagia: (4) Tracheostomy dependent: (5) Hemoptysis: Attending: Dr. 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 Patient developed progressive sputum production followed by hemoptysis. She had large amount of clotted sputum and blood and had difficulty clearing tracheostomy inner cannula. She presented to the emergency department is found to be with signs and symptoms of sepsis. She was started on broad-spectrum antibiotics. Currently her inner cannula is clear. She denies any fever or chills. Aside from the blockage of her tracheostomy tube, she has no acute complaints. Recommendations: 1. Hemoptysis * Patient has a large pneumonia at the left lower base. This appears to be developing an abscess. * Hemoptysis is common and bronchitis and pneumonia and most likely this is the etiology for her bleeding. * Patient is not on any anticoagulation but is on Plavix and aspirin for longstanding CAD. Last PCI or other intervention was in 2016. Hold Plavix and aspirin for now * Treat pneumonia with broad-spectrum antibiotics * Continue to follow sepsis protocol 2. Pneumonia * Doubtful that this is aspiration due to location. * Patient with longstanding tracheostomy so must consider pathology such as stenotrophomonas * Continue broad-spectrum antibiotics by IV * Nasal screen is positive for MRSA so we will continue with vancomycin pending sputum culture * Sputum culture and Gram stain * Continue supportive care with oxygen supplementation through trach collar as tolerated 3. Tracheostomy dependent * History of head and neck cancer with revision 4 years ago with tracheostomy * Patient has a #6 Shiley uncuffed * They attempted to downgrade to a #4 in the past but she had respiratory failure. * Will keep a #6 Shiley trach at bedside * Patient decannulated the inner tracheostomy tube in the ER trying to clear her own secretions * Continue to monitor on telemetry 4. Dysphagia * Patient has longstanding dysphagia and silent aspiration * VFSS in 2019 showed silent aspiration with trapping in the vallecula * Patient has been followed by speech-language pathology and is basically noncompliant with recommendations * Will put an order in for food with an IDDSI level 7 diet comprising of regular diet with easy to chew bite-size moist food * Discussed at length the risk of aspiration with the patient. She was adamant that she "will eat what she wants to eat" Thank you for including us in the care of this patient. We will continue to follow along with you. Please refer to Dr. Smith's addendum for further recommendations and corrections Supervising Physician Co-Signing Physician Notes I saw and evaluated the patient with Anurag Mohan, and agree with findings and plan as documented in the note. 65-year-old female with history of tracheostomy since last 4 years s/p head and neck cancer presented to the hospital with complaints of cough chest tightness. Patient had CT chest done in the ED which showed left lower lobe cavitary pneumonia Constitutional: No acute distress HEENT: EOMI, PERRLA, positive trach Respiratory system: Decreased air entry bilaterally, no wheeze, rhonchi, posit sussy crackles bilateral lower lobes CVS: S1-S2 positive, no murmurs or gallops Abdomen: Soft, nontender, nondistended, positive bowel sounds x4 Extremities: +2 pulses bilaterally radialis/ dorsalis pedis, no cyanosis, no edema Neuro: Awake alert oriented x3 Psych: Normal mood and affect G/U: No Graham Plan: Left lower lobe pneumonia continue with anaerobic gram-negative and MRSA coverage If the nasal MRSA is negative can discontinue vancomycin Monitor H&H. Follow-up sputum culture Aggressive suctioning Would recommend swallow eval We will do supplementation to keep oxygen saturation between 88-92% I would recommend short-term follow-up of the CAT scan of the chest and 84-6 weeks to make sure there is resolving of the left lower lobe dense consolidative process. Patient is going to need antibiotic coverage for at least 3-4 weeks given the possibility of abscess formation in the lung Please note the above document was generated using voice recognition software. It may contain grammatical, syntax or spelling errors.Any formal questions or concerns about the content, text or information contained within the body of this dictation should be directly addressed to the provider for clarification. History of Present Illness Reason for Consultation: Hemoptysis, tracheostomy management, pneumonia Attending Physician: Hardeep Espino MD History of Present Illness Attending: Dr. Smith This is a 65-year-old female with a past medical history of head and neck cancer requiring revision and tracheostomy. She has had a tracheostomy tube for the past 4 years. She has a past medical history including carotid stenosis, CAD, stent placement of LAD, chronic antibiotic suppression, hyperlipidemia, iron deficiency anemia, hypothyroidism, hypertension, depression, anxiety, tobacco use history The patient states that she has had a several day progression of hemoptysis. Yesterday she had a large clot which she had remove her inner cannula from her tracheostomy tube to clear the airway. She reports that this is the first time that she had remove it herself. Typically she has help. She reports her diet has not changed. She has no new evidence of gross aspiration. She denies fever chills. She has no recent illness or pulmonary issues other than this new hemoptysis. Admitted to the hospital for hypoxia secondary to sepsis and pneumonia. Patient given azithromycin and cefepime in the emergency department. Currently being treated with Zosyn and vancomycin. Nasal swab was positive for MRSA. Afebrile since being admitted. Patient has known dysphagia and aspiration. She had a video swallow completed in the past and requires an IDDSI level 7 diet. She has been placed on dietary restrictions in the past and eats "what ever she wants". When discussing the importance of managing food texture because of aspiration she replies that she knows her body and she knows what she can eat and cannot eat. She has no other acute complaints at this time. She feels tired but not part icularly "ill". Patient is somewhat anxious. Discussed this with her. She has had for close relatives within the past 12 months. Her 1 year ago today. Allergies Allergy/AdvReac Type Severity Reaction Status Date / Time bee venom protein (honey bee) Allergy Severe Anaphylaxis Verified 01/23/21 00:54 acetaminophen [From Percocet] Allergy Intermediate Vomiting Verified 01/23/21 00:54 latex Allergy Intermediate SKIN Verified 01/23/21 00:54 BLISTERS oxycodone [From Percocet] Allergy Intermediate Vomiting Verified 01/23/21 00:54 Home Medications Medication Instructions Recorded Confirmed Type clopidogrel 75 mg tablet 75 mg PO QAM 11/25/17 01/23/21 History furosemide 20 mg tablet (Lasix) 20 mg PO DAILY 03/01/19 01/23/21 History metoprolol tartrate 25 mg tablet 25 mg PO BID 03/01/19 01/23/21 History soft lens rinse,store solution 03/01/19 03/01/19 History (Saline Sensitive Eyes) atorvastatin 20 mg tablet 20 mg PO HS 10/31/19 01/23/21 History buspirone 5 mg tablet 5 mg PO BID PRN 10/31/19 01/23/21 History venlafaxine 75 mg tablet 75 mg PO BID 10/31/19 01/23/21 History levothyroxine 50 mcg tablet 50 mcg PO DAILYBB 04/04/20 01/23/21 History sodium chloride 0.65 % nasal spray 2 spray NA BID #1 ml 04/05/20 01/23/21 Rx aerosol (Saline Mist) acetaminophen 325 mg tablet 650 mg PO DIRECTED PRN 01/23/21 01/23/21 History (Tylenol) albuterol sulfate 2.5 mg INHALATION Q6H PRN 01/23/21 01/23/21 History albuterol sulfate 90 mcg/actuation 2 puff INHALATION Q4 PRN 01/23/21 01/23/21 History aerosol inhaler amoxicillin 875 mg-potassium 1 tab PO BID 01/23/21 01/23/21 History clavulanate 125 mg tablet aspirin 81 mg tablet,delayed 81 mg PO DAILY 01/23/21 01/23/21 History release ferrous sulfate 325 mg (65 mg 325 mg PO BID 01/23/21 01/23/21 History iron) tablet fexofenadine 180 mg tablet 180 mg PO DAILY 01/23/21 01/23/21 History fluticasone propionate 50 2 spray INTRANASAL DAILY 01/23/21 01/23/21 History mcg/actuation nasal spray,suspension sennosides 8.6 mg tablet (senna) 8.6 mg PO DAILY PRN 01/23/21 01/23/21 History triamcinolone acetonide 0.1 % 1 applic TOPICAL DIRECTED PRN 01/23/21 01/23/21 History topical cream Patient History Medical History (Updated 01/24/21 @ 10:34 by Madelyn Staples PA-C) CAD (coronary artery disease) 2008 - LAD stent 2016 - LITTLE to mid LAD Carotid stenosis Carpal tunnel syndrome COPD (chronic obstructive pulmonary disease) Dysphagia Helicobacter pylori antibody positive Herniated disc LOWER BACK History of respiratory failure Hypertension Hyponatremia Hypothyroidism Hypoxia Laryngeal cancer S/P TRACH + PEG TUBE PLACEMENT, RADIATION Mucus plugging of bronchi PEG (percutaneous endoscopic gastrostomy) adjustment/replacement/removal Post-nasal drip Tracheostomy complication Tracheostomy dependent Tracheostomy in place Surgical History History of bronchoscopy History of cardiac cath 2008 - [place] - [facility] - 2 STENTS PLACED - FOLLOWS W/ DR. 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 History of tonsillectomy and adenoidectomy History of tracheostomy S/P percutaneous endoscopic gastrostomy (PEG) tube placement Family History Daughter Family history of reaction to anesthesia SLOW TO WAKE Father Family hx of colon cancer Other Colon cancer No pertinent family history Social History Smoking Status: Current every day smoker Tobacco Type: Cigarettes Cigarettes Per Day: 1-2; Second Hand Exposure: Yes; Tobacco Cessation Education Requested by Patient: No Hx Alcohol Use: Yes Alcohol type: beer and wine Hx Substance Use: No Preferred Language: Tamazight Communication Ability: Effective 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 Please refer to Dr. Smith's addendum for physical examination. Results & Data Results & Data ([facility]) Vital Signs (Past 12 Hours) Vital Signs Temp Pulse Pulse Resp BP BP Pulse Ox 01/23/21 12:38 36.8 C 116 H 24 96/65 L 100 01/23/21 09:49 99 H 20 147/86 H 98 01/23/21 05:00 100 H 18 120/71 100 01/23/21 03:30 101 H 19 97/53 L 100 01/23/21 03:09 94 01/23/21 03:00 105 H 31 H 94 Laboratory Results 01/23/21 05:50 01/23/21 05:50 Diagnostic Findings Chest X-Ray 01/22/21 21:20 XR chest 1V portable HISTORY: 65 years-old Female Resiratory Distress acute respiratory distress COMPARISON: Chest radiograph 04/05/2020, CTA chest 01/23/2021 TECHNIQUE: Portable AP view of the chest FINDINGS: Cardiac silhouette is mildly enlarged. Tracheostomy cannula overlies the midline at the level the clavicular heads. Atherosclerotic plaque of the aorta. Emphysema with chronic interstitial coarsening. Dense airspace consolidation of the left midlung with ill-defined central lucencies. Chronic appearing fracture of the distal right clavicle. Degenerative changes of the shoulders and spine. IMPRESSION: 1. Dense airspace consolidation of the left midlung suggestive of pneumonia. Ill-defined central lucencies correspond to the cavitation seen on the CTA chest study of same day suggestive of cavitary pneumonia. Follow-up recommended to exclude an underlying cavitary lesion. 2. Cardiomegaly. 3. Emphysema. ACT 112: Negative or not required by law. The above report was generated using voice recognition software. It may contain grammatical, syntax or spelling errors. Electronically signed by: Cristopher Tai M.D. 01/23/2021 7:30 AM Chest CTA 01/23/21 00:00 CT angio chest PE protocol CLINICAL HISTORY: PE, also LLL infiltrate TECHNIQUE: Multidetector row helical CT of the chest was performed. Coronal and sagittal reformations were obtained. Automated dose lowering techniques and/or adjustment according to patient size were utilized for this exam. Comparison: None available at the time of this dictation. FINDINGS: Lungs and pleura: Large consolidative opacities seen in the left lower lung with pneumatocele formation. Tracheostomy tube tip is in the thoracic trachea. Heart and pericardium: There is cardiomegaly without evidence of pericardial effusion. Vessels: No evidence of pulmonary embolism. Moderate atherosclerotic changes are seen in the aorta and coronary arteries. Mediastinum and jeanna: Multiple enlarged lymph nodes are seen in the mediastinum measuring up to 1.2 cm in short axis. There is suggestion of left hilar adenopathy as well. Chest wall and lower neck: Unremarkable. Abdomen: Unremarkable. Bones: Degenerative changes in the thoracic spine. IMPRESSION: 1. No evidence of pulmonary embolism. 2. Prominent left lower lobe airspace opacity with thick rim pneumatocele likely representing a developing pulmonary abscess. Mediastinal lymphadenopathy is likely reactive. ACT 112: Negative or not required by law. Electronically signed by: John Cedeno M.D. 01/23/2021 9:[address] 01/23/21 00:[address] DOSE: 537.48 mGy.cm HISTORY: Headache. TECHNIQUE: Multiaxial CT images of the head were performed without the use of intravenous contrast. Automated exposure control was utilized for this study. A dose lowering technique was utilized adhering to the principles of ALARA. Comparison: None. Findings: The paranasal sinuses and mastoid air cells are clear. The calvarium and skull base are intact. The ventricles and sulci are within normal limits. There is no mass, hematoma, midline shift, or acute infarct. There is an old punctate lacunar infarct within the right caudate head. Impression: No acute intracranial abnormality. ACT 112: Negative or not required by law. Electronically signed by: Jesús Cohen M.D. 01/23/2021 7:18 AM PG Care Time/CCT Total # of Minutes Spent Total Time Spent with Patient: Total time spent is greater than 50% in coordination of care (as documented) at patient's floor/unit and/or counseling patient: 45 minutes Coding Level of Care Code 37356 Initial Inpt Care Lvl 3 Diagnoses Pneumonia J18.9 Sepsis A41.9 Dysphagia R13.10 Tracheostomy dependent Z93.0 Hemoptysis R04.2 Time Spent (min) 45
[2021-01-23] MEDS ORDERED: VANCOMYCIN HCL 1,500 MG in SODIUM CHLORIDE 0.9% 500 ML IV SCH (16:00)
--- NOTE | 2021-01-23 17:26 | Hospitalist Progress Note ---
Date of Service January 23, 2021 Assessment & Plan (1) Sepsis: Plan: Severe sepsis Pneumonia Possible aspiration Failed outpatient treatment H/O non compliance with speech recommendations --CTA:No evidence of pulmonary embolism. Prominent left lower lobe airspace opacity with thick rim pneumatocele likely representing a developing pulmonary abscess. Mediastinal lymphadenopathy is likely reactive. 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 after midnight Currently denies chest pain Aspirin, Plavix on hold secondary to hemoptysis Continue Statin COPD Pulmonary hypertension as per records 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 use Nebs PRN Acute on chronic hyponatremia 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 abuse Hyponatremia in setting of diuretic use Monitor Sodium levels Hypothyroidism Continue levothyroxine DVT Px: SCDs for now Code Status Full Code Admission and Anticipated Discharge Date Admission Date: January 23, 2021 Subjective Patient is seen and examined at bedside States feeling better today Still have minimal hemoptysis Reports chronic cough Denies any dyspnea, chest pain, dizziness, nausea, abdominal pain Discussed with pulmonology today Offers no other complaints Review of Systems Review of Systems: All systems reviewed & are unremarkable except as noted in Subjective Physical Exam Physical Exam: Physical Exam: Vitals signs as noted above General Appearance:Moderately built and nourished, no apparent distress Head: normocephalic, Atraumatic, +Trach Eyes: normal inspection, EOMI Neck: supple, Trachea midline Respiratory/Chest: Decreased breath sounds, scattered wheezes Cardiovascular: S1, S2, No murmur, =Tachycardia Abdomen/GI:Soft, Non tender, Bowel sounds present Extremities/Musculoskeletal:normal inspection, no edema Neurologic/Psych:AAOX3, grossly no focal neurological deficits Skin: normal color, warm Results & Data Results & Data ([facility]) Vital Signs (Past 12 Hours) Vital Signs Temp Pulse Pulse Resp BP BP Pulse Ox 01/23/21 17:10 36.7 C 01/23/21 17:00 108 H 20 100 01/23/21 16:00 105 H 23 92 01/23/21 15:00 104 H 23 100 01/23/21 14:00 100 H 13 112/64 99 01/23/21 12:38 36.8 C 116 H 24 96/65 L 100 01/23/21 09:49 99 H 20 147/86 H 98 Laboratory Results Short CBC 01/22/21 01/22/21 01/23/21 Range/Units 21:31 21:31 02:13 WBC 19.23 H (4.8-10.8) K/uL Hgb 11.1 L (12.0-16.0) g/dL Hct 31.2 L (37-47) % Plt Count 580 H (130-400) K/uL Troponin I 0.709 H* 0.599 H* (0-0.045) ng/ml 01/23/21 01/23/21 Range/Units 05:50 10:01 WBC 14.87 H (4.8-10.8) K/uL Hgb 9.4 L (12.0-16.0) g/dL Hct 28.1 L (37-47) % Plt Count 504 H (130-400) K/uL Troponin I 0.336 H* (0-0.045) ng/ml BMP 01/22/21 01/23/21 01/23/21 21:31 02:13 05:50 Sodium 126 L 124 L 128 L Potassium 3.6 3.7 Chloride 89 L 94 L Carbon Dioxide 25 23 BUN 14 15 Creatinine 0.79 0.68 Glucose 103 H 95 Calcium 8.7 7.8 L Cardiac Enzymes 01/22/21 01/23/21 01/23/21 Range/Units 21:31 02:13 10:01 Troponin I 0.709 H* 0.599 H* 0.336 H* (0-0.045) ng/ml Liver Function 01/23/21 Range/Units 02:13 Total Bilirubin 0.5 (0.2-1) mg/dl Direct Bilirubin 0.3 H (0-0.2) mg/dl AST 40 H (15-37) U/L ALT 44 (12-78) U/L Alkaline Phosphatase 214 H (45-117) U/L Albumin 1.6 L (3.4-5.0) gm/dl
[2021-01-23] MEDS: METOPROLOL TARTRATE 25 MG TAB PO SCH (21:12)
[2021-01-23] MEDS: ATORVASTATIN 20 MG TAB PO SCH (21:13)
[2021-01-23] MEDS: busPIRone 5 MG TAB PO PRN (22:50)
[2021-01-24] MEDS: HYDROCODONE/ACETAMOPHEN 5/325MG TAB PO PRN ×3 (02:00→16:17)
[2021-01-24] MEDS: PIPERACILLIN/TAZOBACTAM 3.375 GM in DEXTROSE 5% 100 ML IV SCH ×3 (03:33→20:08)
[2021-01-24 05:43] LABS: Hematocrit (blood only) 27.6 % (37-47); Mean Corpuscular Hemoglobin 28.9 pg (25-34); Mean Corpuscular Hgb Conc 32.6 g/dL (32-36); Mean Corpuscular Volume 88.7 fL (80-100); Mean Platelet Volume 9.4 fL (7.4-10.4); Platelet Count 483 K/uL (130-400); RDW Coefficient of Variation 23.4 % (11.5-14.5); RDW Standard Deviation 74.7 fL (36.4-46.3); Red Blood Count 3.11 M/uL (4.2-5.4)
[2021-01-24 06:07] LABS: BUN Creatinine Ratio 21.6 (10-20); Calcium 8.5 mg/dl (8.5-10.1); Creatinine Clr Calc Pharmacy 70.2 ml/min; Est GFR (African American) 104.9 ml/min; Est GFR (Non-African American) 90.5 ml/min; Potassium 3.7 mmol/L (3.5-5.1)
--- NOTE | 2021-01-24 08:26 | Cardiology Consultation ---
Date of Consultation January 24, 2021 Assessment & Plan (1) Pneumonia: (2) Sepsis: (3) Elevated troponin: (4) CAD (coronary artery disease): (5) Subclavian artery stenosis, right: Patient admitted for respiratory distress, hypoxia, worsening secretions from trach, diagnosed with sepsis and pneumonia, hemoptysis, and possibly pulm abscess per CT scan. She was found to have minimally elevated troponin. No acute EKG changes. No complaints of chest pain reported. Echo revealed small wall motion abnormality in septal/anterior wall, consistent with her prior history of remote CT in that area. Symptoms and troponin not indicative of ACS. Likely demand ischemia in setting of hypoxia/respiratory distress. She is on chronic dual antiplatelet therapy due to history of stenting to the LAD x2 (2007 and 2015), and history of PVD with carotid stenosis and right subclavian stenosis/occlusion. ASA and Plavix were held on admission due to anemia and hemoptysis. Given her extensive vascular disease, CAD, recommend resuming ASA 81 mg daily. Patient remains tachycardic in the setting of respiratory symptoms/sepsis. Will change metoprolol tartrate to metoprolol succinate and increase dose to 50 mg BID. Case discussed with Dr. Yang. Will follow. Supervising Physician Co-Signing Physician Notes Patient was seen and personally examined full assessment evaluation as noted above Patient with extensive vascular disease as outlined on dual antiplatelet therapy predominantly due to carotid and peripheral vascular disease. Would hold clopidogrel and resume aspirin if possible beta-alicia increased to reduce myocardial demand History of Present Illness Reason for Consultation: Elevated troponin; sepsis; pneumonia; History of CAD;vascular Requesting Physician: Dr. Espino Attending Physician: Dr. Yang History of Present Illness Patient is a complex 65 year old female who is well known to [employer] cardiology, following with Dr. Montenegro and Nkechi Serrano PA-C in the [facility] office. 1. Coronary heart disease -Apparent silent septal versus anterior myocardial infarction with stent to the LAD performed in 2007 2. Cardiac catheterization last on 10/31/2015 at [facility], after presentation with chest discomfort and abnormal stress testing demonstrated the following: The left main was angiographically normal. The left anterior descending coronary artery was noted to have a patent stent in the proximal to midportion of the vessel followed by an 80% calcified stenosis. The circumflex coronary artery gave rise to 2 obtuse marginals and a 30% circumflex stenosis was noted. The right coronary artery was a dominant vessel with noted long 40% stenosis. Hyperdynamic LV systolic function was noted. The patient went on to have PCI and implantation of a Promus LITTLE to the mid LAD the same setting. 2. Carotid artery stenosis, right subclavian artery occlusion, and moderate bilateral lower extremity PAD, followed by [facility] vascular surgery 3. Vocal cord squamous cell carcinoma, tracheostomy, prior PEG tube, November 29, 2019 robotic partial gastrectomy. 4. Emphysema. Chronic ongoing tobacco abuse 5. History of alcohol use/abuse, reformed. 6. Chronic hyponatremia. 7. Iron deficiency anemia. 8. Hypertension 9. Dyslipidemia 10. Acquired hypothyroidism. 11. Cervical disc disease 12. Anxiety 13. Osteoarthritis Patient presented to [facility] ER with complaints of worsening respiratory status, thick secretions from trach with hemoptysis, blood clots, SOB. Found to have abnormal chest xray, likely pneumonia and fits criteria for spesis. Chest Ct also completed and concerning for pulmonary abscess. Due to hemoptysis with her thick secretions, ASA and Plavix were held on admission. Mild anemia noted. Mild elevated in her troponin as well, consistent with demand ischemia from hypoxia and respiratory distress. She was started on broad spectrum antibiotics. Pulm consulted. Echo was completed which demonstrated small septal, anterior wall motion abnormality, consistent with her history of old septal/anterior CT, with preserved LV systolic function. At time of consult, patient reports her secretions have improved but remain present. No recurrent blood clots/hemoptysis noted this morning. Denies chest pain since admission or recent chest pain as an outpatient. No fever or chills. HR's are slightly elevated currently, but she is asymptomatic. No edema. No dizziness or lightheadedness. Allergies Allergy/AdvReac Type Severity Reaction Status Date / Time bee venom protein (honey bee) Allergy Severe Anaphylaxis Verified 01/23/21 00:54 acetaminophen [From Percocet] Allergy Intermediate Vomiting Verified 01/23/21 00:54 latex Allergy Intermediate SKIN Verified 01/23/21 00:54 BLISTERS oxycodone [From Percocet] Allergy Intermediate Vomiting Verified 01/23/21 00:54 Home Medications Medication Instructions Recorded Confirmed Type clopidogrel 75 mg tablet 75 mg PO QAM 11/25/17 01/23/21 History furosemide 20 mg tablet (Lasix) 20 mg PO DAILY 03/01/19 01/23/21 History metoprolol tartrate 25 mg tablet 25 mg PO BID 03/01/19 01/23/21 History soft lens rinse,store solution 03/01/19 03/01/19 History (Saline Sensitive Eyes) atorvastatin 20 mg tablet 20 mg PO HS 10/31/19 01/23/21 History buspirone 5 mg tablet 5 mg PO BID PRN 10/31/19 01/23/21 History venlafaxine 75 mg tablet 75 mg PO BID 10/31/19 01/23/21 History levothyroxine 50 mcg tablet 50 mcg PO DAILYBB 04/04/20 01/23/21 History sodium chloride 0.65 % nasal spray 2 spray NA BID #1 ml 04/05/20 01/23/21 Rx aerosol (Saline Mist) acetaminophen 325 mg tablet 650 mg PO DIRECTED PRN 01/23/21 01/23/21 History (Tylenol) albuterol sulfate 2.5 mg INHALATION Q6H PRN 01/23/21 01/23/21 History albuterol sulfate 90 mcg/actuation 2 puff INHALATION Q4 PRN 01/23/21 01/23/21 History aerosol inhaler amoxicillin 875 mg-potassium 1 tab PO BID 01/23/21 01/23/21 History clavulanate 125 mg tablet aspirin 81 mg tablet,delayed 81 mg PO DAILY 01/23/21 01/23/21 History release ferrous sulfate 325 mg (65 mg 325 mg PO BID 01/23/21 01/23/21 History iron) tablet fexofenadine 180 mg tablet 180 mg PO DAILY 01/23/21 01/23/21 History fluticasone propionate 50 2 spray INTRANASAL DAILY 01/23/21 01/23/21 History mcg/actuation nasal spray,suspension sennosides 8.6 mg tablet (senna) 8.6 mg PO DAILY PRN 01/23/21 01/23/21 History triamcinolone acetonide 0.1 % 1 applic TOPICAL DIRECTED PRN 01/23/21 01/23/21 History topical cream Patient History Medical History (Updated 01/24/21 @ 10:34 by Madelyn Staples PA-C) CAD (coronary artery disease) 2007 - LAD stent 2016 - LITTLE to mid LAD Carotid stenosis Carpal tunnel syndrome COPD (chronic obstructive pulmonary disease) Dysphagia Helicobacter pylori antibody positive Herniated disc LOWER BACK History of respiratory failure Hypertension Hyponatremia Hypothyroidism Hypoxia Laryngeal cancer S/P TRACH + PEG TUBE PLACEMENT, RADIATION Mucus plugging of bronchi PEG (percutaneous endoscopic gastrostomy) adjustment/replacement/removal Post-nasal drip Tracheostomy complication Tracheostomy dependent Tracheostomy in place Surgical History History of bronchoscopy History of cardiac cath 2008 - [facility] - 2 STENTS PLACED - FOLLOWS W/ DR. 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 PEG tube History of tonsillectomy and adenoidectomy History of tracheostomy S/P percutaneous endoscopic gastrostomy (PEG) tube placement Family History Daughter Family history of reaction to anesthesia SLOW TO WAKE Father Family hx of colon cancer Other Colon cancer No pertinent family history Social History Smoking Status: Current every day smoker Tobacco Type: Cigarettes Cigarettes Per Day: 1-2; Second Hand Exposure: Yes; Tobacco Cessation Education Requested by Patient: No Hx Alcohol Use: Yes Alcohol type: beer and wine Hx Substance Use: No Preferred Language: Albanian Communication Ability: Effective 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 Beliefs That Will Affect Care: None marital status: Current Living Situation: Alone Current Living Situation Comment: Pt reports family lives close/able to help current occupational status: retired Other Information That Helps Us Care for You: No Feels Safe at Home: Yes Safety Concerns: Feels Safe At This Time Assistive Devices: Oxygen - Continuous Review of Systems Review of Systems: All systems reviewed & are unremarkable except as noted in HPI & below Physical Exam Constitutional: WD/WN, vitals as above Eyes: PERRL, conjunctivae normal, anicteric sclerae Neck: Tracheostomy in place Respiratory: + cough (thick secretions from trach) Auscultation: + rhonchi Cardiovascular: Rate/Rhythm: + tachycardic Heart Sounds: no murmur Vessels: no JVD Extremities: no edema Gastrointestinal (Abdomen): normal bowel sounds, soft, nontender, no hepatosplenomegaly Skin: no rashes, warm and dry Neurologic: PERRL, EOMI, accommodation nl, no face palsy, no dysarthria Psychiatric: A+Ox3, euthymic affect Results & Data ([facility]) Vital Signs (Past 12 Hours) Vital Signs Temp Pulse Pulse Pulse Resp BP Pulse Ox 01/24/21 04:09 36.9 C 108 H 16 118/92 100 01/24/21 00:07 37.0 C 103 H 16 148/85 H 100 01/23/21 23:00 97 H 01/23/21 20:26 36.9 C 112 H 24 131/75 100 Laboratory Results 01/24/21 01/24/21 01/23/21 Range/Units 05:03 05:03 Unknown WBC 14.50 H (4.8-10.8) K/uL RBC 3.11 L (4.2-5.4) M/uL Hgb 9.0 L (12.0-16.0) g/dL Hct 27.6 L (37-47) % MCV 88.7 (80-100) fL MCH 28.9 (25-34) pg MCHC 32.6 (32-36) g/dL RDW Std Deviation 74.7 H (36.4-46.3) fL RDW Coeff of Jair 23.4 H (11.5-14.5) % Plt Count 483 H (130-400) K/uL MPV 9.4 (7.4-10.4) fL Sodium 130 L (136-145) mmol/L Potassium 3.7 (3.5-5.1) mmol/L Chloride 97 L (98-107) mmol/L Carbon Dioxide 26 (21-32) mmol/L Anion Gap 7.0 (3-11) BUN 15 (7-18) mg/dl Creatinine 0.68 (0.6-1.2) mg/dl Est Cr Clr Drug Dosing 70.2 ml/min Est GFR ( Amer) 104.9 ml/min Est GFR (Non-Af Amer) 90.5 ml/min BUN/Creatinine Ratio 21.6 H (10-20) Glucose 103 H (70-99) mg/dl Calcium 8.5 (8.5-10.1) mg/dl Troponin I (0-0.045) ng/ml Triglycerides 80 (0-150) mg/dl Cholesterol 70 (0-200) mg/dl LDL Cholesterol, Calc 41 mg/dl VLDL Cholesterol, Calc 16 mg/dl HDL Cholesterol 13 mg/dl Cholesterol/HDL Ratio 5 Nasal Screen MRSA (PCR) Positive A (Negative) 01/23/21 01/23/21 Range/Units 10:20 10:01 WBC (4.8-10.8) K/uL RBC (4.2-5.4) M/uL Hgb (12.0-16.0) g/dL Hct (37-47) % MCV (80-100) fL MCH (25-34) pg MCHC (32-36) g/dL RDW Std Deviation (36.4-46.3) fL RDW Coeff of Jair (11.5-14.5) % Plt Count (130-400) K/uL MPV (7.4-10.4) fL Sodium (136-145) mmol/L Potassium (3.5-5.1) mmol/L Chloride (98-107) mmol/L Carbon Dioxide (21-32) mmol/L Anion Gap (3-11) BUN (7-18) mg/dl Creatinine (0.6-1.2) mg/dl Est Cr Clr Drug Dosing ml/min Est GFR ( Amer) ml/min Est GFR (Non-Af Amer) ml/min BUN/Creatinine Ratio (10-20) Glucose (70-99) mg/dl Calcium (8.5-10.1) mg/dl Troponin I 0.336 H* (0-0.045) ng/ml Triglycerides (0-150) mg/dl Cholesterol (0-200) mg/dl LDL Cholesterol, Calc mg/dl VLDL Cholesterol, Calc mg/dl HDL Cholesterol mg/dl Cholesterol/HDL Ratio Nasal Screen MRSA (PCR) Negative (Negative) Diagnostic Findings Telemetry reviewed - Sinus tachycardia ranging 110-130 bpm at rest EKG on admission reviewed: NSR, No acute ST/T wave changes. Echo report from this admission: LV is normal in size. Mild concentric LVH Basal septum is thickened and angulated consistent with sigmoid septum. There is mild hypokinesis of the mid apical anterior septum with all other wall segments karime normally. EF 60-65% Grade I diastolic dysfunction Mild to moderate MR Trace TR RV systolic pressure is elevated at 40-50mmHg Chest xray on admission: 1. Dense airspace consolidation of the left midlung suggestive of pneumonia. Ill-defined central lucencies correspond to the cavitation seen on the CTA chest study of same day suggestive of cavitary pneumonia. Follow-up recommended to exclude an underlying cavitary lesion. 2. Cardiomegaly. 3. Emphysema Chest CT report reviewed: IMPRESSION: 1. No evidence of pulmonary embolism. 2. Prominent left lower lobe airspace opacity with thick rim pneumatocele likely representing a developing pulmonary abscess. Mediastinal lymphadenopathy is likely reactive. Head CT report reviewed: Impression: No acute intracranial abnormality. Outpatient echo results reviewed from 03/2018: Interpretation Summary The examination is adequate to evaluate the referral indication. The left ventricular cavity size is normal. The LV wall thickness is borderline increased (concentric). The left ventricular wall motion is normal. The qualitative LV ejection fraction is 60-64% (normal). Mild aortic valve sclerosis is present. There is trace mitral insufficiency Medications Administered Current Inpatient Medications Acetaminophen (Acetaminophen 325 Mg Tab) 325 mg PO Q6H PRN PRN Reason: Mild Pain Stop: 02/22/21 02:50 Hydrocodone Bitart/Acetaminophen (Hydrocodone/Acetamophen 5/325mg Tab) 1 tab PO QID PRN PRN Reason: Pain Stop: 02/06/21 02:50 Last Admin: 01/24/21 02:00 Dose: 1 tab Documented by: Albuterol (Albuterol 0.083% Nebu Soln 3 Ml Vial) 2.5 mg NEB Q6R PRN PRN Reason: Shortness Of Breath Or Wheezing Stop: 02/22/21 19:25 Aspirin (Aspirin 81 Mg Ectab) 81 mg PO QAM JUANY Stop: 02/23/21 09:44 Last Admin: 01/24/21 10:11 Dose: 81 mg Documented by: Atorvastatin Calcium (Atorvastatin 20 Mg Tab) 20 mg PO HS JUANY Stop: 02/22/21 20:59 Last Admin: 01/23/21 21:13 Dose: 20 mg Documented by: Buspirone HCl (Buspirone 5 Mg Tab) 5 mg PO BID PRN PRN Reason: Anxiety Stop: 02/22/21 02:50 Last Admin: 01/23/21 22:50 Dose: 5 mg Documented by: Ferrous Sulfate (Ferrous Sulfate 325 Mg Tab) 325 mg PO BID JUANY Stop: 02/22/21 08:59 Last Admin: 01/24/21 10:11 Dose: 325 mg Documented by: Fexofenadine HCl (Fexofenadine Hcl 180 Mg Tab) 180 mg PO DAILY JUANY Stop: 02/22/21 08:59 Last Admin: 01/24/21 10:11 Dose: 180 mg Documented by: Fluticasone Propionate (Fluticasone Propionate Na Spr 16 Gm Btl) 2 sprays NA DAILY JUANY Stop: 02/22/21 08:59 Last Admin: 01/24/21 10:11 Dose: 2 sprays Documented by: Piperacillin Sod/Tazobactam (Sod 3.375 gm/ Dextrose) 115 mls @ 28.75 mls/hr IV Q8H [facility]; Protocol Stop: 01/30/21 07:59 Last Infusion: 01/24/21 07:41 Dose: Infused Documented by: Vancomycin HCl 1,500 mg/ (Sodium Chloride) 530 mls @ 200 mls/hr IV Q24H [facility] Stop: 01/30/21 15:59 Last Infusion: 01/23/21 19:21 Dose: Infused Documented by: Levothyroxine Sodium (Levothyroxine Sodium 50 Mcg Tablet) 50 mcg PO DAILYBB [facility] Stop: 02/22/21 06:29 Last Admin: 01/24/21 10:11 Dose: 50 mcg Documented by: Metoprolol Succinate (Metoprolol Succ 50mg Ext Rel Tab) 50 mg PO BID [facility] Stop: 02/23/21 09:44 Last Admin: 01/24/21 10:11 Dose: 50 mg Documented by: Miscellaneous Information (Vancomycin Consult Active) 1 ea N/A UD PRN PRN Reason: Consult Stop: 02/22/21 01:50 Miscellaneous Information (Piperacill/Tazobac Consult Active) 1 ea N/A UD PRN PRN Reason: Consult Stop: 02/22/21 02:50 Sennosides (Senna 8.6 Mg Tab) 8.6 mg PO DAILY PRN PRN Reason: Constipation Stop: 02/22/21 02:50 Sodium Chloride (Sodium Chloride 0.65% Na Soln 45 Ml ([place])) 2 sprays NA BID JUANY Stop: 02/22/21 08:59 Last Admin: 01/24/21 10:09 Dose: Not Given Documented by: Venlafaxine HCl (Venlafaxine Hcl 37.5 Mg Tab) 75 mg PO BIDM [facility] Stop: 02/22/21 07:59 Last Admin: 01/24/21 10:11 Dose: 75 mg Documented by:
[2021-01-24] MEDS ORDERED: predniSONE 20 MG TAB PO SCH (09:00)
[2021-01-24] MEDS: SODIUM CHLORIDE 0.65% NA SOLN 45 ML (OCEAN) SCH ×2 (10:09→20:10)
[2021-01-24] MEDS: FERROUS SULFATE 325 MG TAB PO SCH ×2 (10:11→20:08)
[2021-01-24] MEDS: METOPROLOL SUCC 50MG EXT REL TAB PO SCH ×2 (10:11→20:09)
[2021-01-24] MEDS: ASPIRIN 81 MG ECTAB PO SCH (10:11)
[2021-01-24] MEDS: FLUTICASONE PROPIONATE NA SPR 16 GM BTL SCH (10:11)
[2021-01-24] MEDS: LEVOTHYROXINE SODIUM 50 MCG TABLET PO SCH (10:11)
[2021-01-24] MEDS: VENLAFAXINE HCL 37.5 MG TAB PO SCH ×2 (10:11→16:17)
[2021-01-24] MEDS: FEXOFENADINE HCL 180 MG TAB PO SCH (10:11)
[2021-01-24] MEDS: METOPROLOL TARTRATE 25 MG TAB PO SCH (10:13)
[2021-01-24] MEDS ORDERED: guaiFENesin/CODEINE 100MG/10MG 5ML UDC PO PRN (11:03)
--- NOTE | 2021-01-24 11:49 | Pulmonology Progress Note ---
Date of Service January 24, 2021 Assessment & Plan (1) Pneumonia: (2) Sepsis: (3) Dysphagia: (4) Tracheostomy dependent: (5) Hemoptysis: Plan: Attending: Dr. 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 Patient developed progressive sputum production followed by hemoptysis. She had large amount of clotted sputum and blood and had difficulty clearing tracheostomy inner cannula. She presented to the emergency department is found to be with signs and symptoms of sepsis. She was started on broad-spectrum antibiotics. Inner cannula replaced several times as patient cleans it herself and dislodges it. She denies any fever or chills. Complaint of right-sided rib pain. Recommendations: 1. Hemoptysis * Patient has a large pneumonia at the left lower base. This appears to be developing an abscess. * Hemoptysis is common and bronchitis and pneumonia and most likely this is the etiology for her bleeding. * Bloody sputum is decreased but continues with long stringy sputum. * Will start patient with guaifenesin with codeine every 6 hours * Patient is not on any anticoagulation but is on Plavix and aspirin for longstanding CAD. Last PCI or other intervention was in 2016. Hold Plavix and aspirin for now. Discussed with cardiology. They agree * Treat pneumonia with broad-spectrum antibiotics including vancomycin as sputum has Staphylococcus * Continue to follow sepsis protocol 2. Pneumonia * Doubtful that this is aspiration due to location. * Patient with longstanding tracheostomy so must consider pathology such as stenotrophomonas * Continue broad-spectrum antibiotics by IV * Nasal screen and initial sputum sample positive for MRSA. Continue with vancomycin pending sputum ID and sensitivities * Continue supportive care with oxygen supplementation through trach collar as tolerated 3. Tracheostomy dependent * History of head and neck cancer with revision 4 years ago with tracheostomy * Patient has a #6 Shiley uncuffed * They attempted to downgrade to a #4 in the past but she had respiratory failure. * Will keep a #6 Shiley trach at bedside * Patient has decannulated the inner tracheostomy tube several times trying to clear her own secretions. Respiratory aware and helping to manage. * Continue to monitor on telemetry 4. Dysphagia * Patient has longstanding dysphagia and silent aspiration * VFSS in 2019 showed silent aspiration with trapping in the vallecula * Patient has been followed by speech-language pathology and is basically noncompliant with recommendations * Will put an order in for food with an IDDSI level 7 diet comprising of regular diet with easy to chew bite-size moist food * Discussed at length the risk of aspiration with the patient. She was adamant that she "will eat what she wants to eat" 5. Rib pain * Patient with significant cough and focal rib pain which is reproducible with palpation * No evidence of rib fractures on CTA of chest 01/23/2021 * Instructed patient on splinting technique with pillow * Will order 5% lidocaine patch to be applied over painful area. Thank you for including us in the care of this patient. Please feel free to reconsult as needed Please refer to Dr. Smith's addendum for further recommendations and corrections Admission and Anticipated Discharge Date Admission Date: January 23, 2021 Supervising Physician Co-Signing Physician Notes I saw and evaluated the patient with Anurag Moahn, and agree with findings and plan as documented in the note. Patient seen and examined at bedside. No acute distress, no adverse events overnight Patient is still coughing little bit of blood in the phlegm. The intensity and frequency has gone down She states she is feeling better compared to before Constitutional: No acute distress HEENT: EOMI, PERRLA, positive trach Respiratory system: Decreased air entry bilaterally, no wheeze, rhonchi, positive crackles bilateral lower lobes CVS: S1-S2 positive, no murmurs or gallops Abdomen: Soft, nontender, nondistended, positive bowel sounds x4 Extremities: +2 pulses bilaterally radialis/ dorsalis pedis, no cyanosis, no edema Neuro: Awake alert oriented x3 Psych: Normal mood and affect G/U: No Graham Plan: Start the patient on [id number] guaifenesin with DM Continue with antibiotics Sputum culture growing staph. Please note the above document was generated using voice recognition software. It may contain grammatical, syntax or spelling errors.Any formal questions or concerns about the content, text or information contained within the body of this dictation should be directly addressed to the provider for clarification. Subjective Attending: Dr. Smith Patient seen and examined at bedside. Hemoptysis has decreased. She continues to have significant amounts of sputum production. Sputum cultures were collect ed last night and sent to the lab. Initial results show Staphylococcus species. No fever or chills. Patient does continue to desaturate on room air. Patient has no new complaints. Review of Systems Review of Systems: All systems reviewed & are unremarkable except as noted in Subjective Physical Exam Physical Exam: Patient seen and examined in room 104. Please refer to Dr. Smith's addendum for physical examination. Results & Data Results & Data ([facility]) Vital Signs (Past 12 Hours) Vital Signs Temp Pulse Resp BP Pulse Ox 01/24/21 04:09 36.9 C 108 H 16 118/92 100 01/24/21 00:07 37.0 C 103 H 16 148/85 H 100 Laboratory Results 01/24/21 05:03 01/24/21 05:03 Microbiology 01/23/21 20:10 Gram Stain - Final Sputum,Trach Sputum Culture - Preliminary Pin-point growth present, reincubating. 01/23/21 Unknown Gram Stain - Final Sputum, Expectorated Sputum Culture - Preliminary Staphylococcus species 01/23/21 00:00 Aerobic Blood Culture - Preliminary Blood No growth in Aerobic bottle after 24 hours. Anaerobic Blood Culture - Preliminary No growth in Anaerobic bottle after 24 hours. 01/23/21 00:13 Aerobic Blood Culture - Preliminary Blood No growth in Aerobic bottle after 24 hours. Anaerobic Blood Culture - Preliminary No growth in Anaerobic bottle after 24 hours. Diagnostic Findings No further diagnostic imaging PG Care Time/CCT Total # of Minutes Spent Total Time Spent with Patient: Total time spent is greater than 50% in coordination of care (as documented) at patient's floor/unit and/or counseling patient:25 minutes Coding Level of Care Code 19065 Subseq Hosp Care Lvl 2 Diagnoses Pneumonia J18.9 Sepsis A41.9 Dysphagia R13.10 Tracheostomy dependent Z93.0 Hemoptysis R04.2 Time Spent (min) 25
[2021-01-24] MEDS: guaiFENesin/DEXTROM SYRUP 100MG/10MG 5ML UDC PO SCH ×2 (12:59→16:17)
[2021-01-24] MEDS: LIDOCAINE 5% 1 PATCH TD SCH (13:58)
[2021-01-24] MEDS: VANCOMYCIN HCL 1,750 MG in SODIUM CHLORIDE 0.9% 500 ML IV SCH (16:17)
--- NOTE | 2021-01-24 18:28 | Hospitalist Progress Note ---
Date of Service January 24, 2021 Assessment & Plan (1) Sepsis: Plan: Severe sepsis Pneumonia Possible aspiration Failed outpatient treatment H/O non compliance with speech recommendations --CTA:No evidence of pulmonary embolism. Prominent left lower lobe airspace opacity with thick rim pneumatocele likely representing a developing pulmonary abscess. Mediastinal lymphadenopathy is likely reactive. 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 Patient decannulated the inner tracheostomy tube in the ER replaced by ED Continue supplemental oxygen as needed Monitor Dysphagia VFSS in 2019 showed silent aspiration with trapping in the vallecula H/O Non compliance Speech eval Aspiration precautions H/O CAD, PVD S/P stent Troponin elevation secondary to illness DD:demand ischemia in the setting of sepsis and pneumonia ECHO showed mild hypokinesis of mid apical anterior septal No acute EKG changes Appreciate cardiology input Echo findings consistent with prior history of GA as per cards Troponin trending down Aspirin, Plavix initially held secondary to hemoptysis Continue Statin Resume aspirin 81 mg daily given extensive vascular disease as per cards COPD Pulmonary hypertension as per records 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 use Nebs PRN Acute on chronic hyponatremia 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 abuse Hyponatremia in setting of diuretic use Monitor Sodium levels Sodium 130 today Hypothyroidism Continue levothyroxine DVT Px: SCDs for now Code Status Full Code Admission and Anticipated Discharge Date Admission Date: January 23, 2021 Subjective Patient is seen and examined at bedside Patient still has hemoptysis intermittently Significant sputum production Reports some chest discomfort secondary to cough Easily desaturates off oxygen Denies any significant dyspnea, dizziness, nausea, abdominal pain Review of Systems Review of Systems: All systems reviewed & are unremarkable except as noted in Subjective Physical Exam Physical Exam: Physical Exam: Vitals signs as noted above General Appearance:Moderately built and nourished, no apparent distress Head: normocephalic, Atraumatic, +Trach Eyes: normal inspection, EOMI Neck: supple, Trachea midline Respiratory/Chest: Decreased breath sounds, scattered wheezes Cardiovascular: S1, S2, No murmur, =Tachycardia Abdomen/GI:Soft, Non tender, Bowel sounds present Extremities/Musculoskeletal:normal inspection, no edema Neurologic/Psych:AAOX3, grossly no focal neurological deficits Skin: normal color, warm Results & Data Results & Data ([facility]) Vital Signs (Past 12 Hours) Vital Signs Temp Pulse Resp BP Pulse Ox 01/24/21 14:00 123/73 01/24/21 12:00 37 C 108 H 18 98 01/24/21 08:00 36.8 C 118 H 18 138/71 96 Laboratory Results Short CBC 01/24/21 Range/Units 05:03 WBC 14.50 H (4.8-10.8) K/uL Hgb 9.0 L (12.0-16.0) g/dL Hct 27.6 L (37-47) % Plt Count 483 H (130-400) K/uL BMP 01/24/21 05:03 Sodium 130 L Potassium 3.7 Chloride 97 L Carbon Dioxide 26 BUN 15 Creatinine 0.68 Glucose 103 H Calcium 8.5
[2021-01-24] MEDS: ATORVASTATIN 20 MG TAB PO SCH (20:10)
[2021-01-25] MEDS: guaiFENesin/DEXTROM SYRUP 100MG/10MG 5ML UDC PO SCH ×5 (01:47→23:33)
[2021-01-25] MEDS: HYDROCODONE/ACETAMOPHEN 5/325MG TAB PO PRN ×4 (02:45→20:44)
[2021-01-25] MEDS: PIPERACILLIN/TAZOBACTAM 3.375 GM in DEXTROSE 5% 100 ML IV SCH ×3 (03:38→20:13)
[2021-01-25 05:56] LABS: Hematocrit (blood only) 26.8 % (37-47); Hemoglobin 8.6 g/dL (12.0-16.0); Mean Corpuscular Hemoglobin 28.8 pg (25-34); Mean Corpuscular Hgb Conc 32.1 g/dL (32-36); Mean Corpuscular Volume 89.6 fL (80-100); Mean Platelet Volume 9.3 fL (7.4-10.4); Nucleated RBC # (auto) 0.02 K/uL (0-0); Nucleated RBC % (auto) 0.1 %; Platelet Count 432 K/uL (130-400); RDW Standard Deviation 74.1 fL (36.4-46.3); Red Blood Count 2.99 M/uL (4.2-5.4); White Blood Count 18.25 K/uL (4.8-10.8)
[2021-01-25] MEDS: LEVOTHYROXINE SODIUM 50 MCG TABLET PO SCH (06:16)
[2021-01-25 06:58] LABS: BUN Creatinine Ratio 16.8 (10-20); Calcium 8.4 mg/dl (8.5-10.1); Est GFR (African American) 102.2 ml/min; Est GFR (Non-African American) 88.1 ml/min; Potassium 3.8 mmol/L (3.5-5.1)
[2021-01-25] MEDS ORDERED: FUROSEMIDE INJ 20 MG/2 ML VIAL IV ONE (08:21)
[2021-01-25] MEDS: FEXOFENADINE HCL 180 MG TAB PO SCH (09:05)
[2021-01-25] MEDS: METOPROLOL SUCC 50MG EXT REL TAB PO SCH ×2 (09:06→20:16)
[2021-01-25] MEDS: ASPIRIN 81 MG ECTAB PO SCH (09:06)
[2021-01-25] MEDS: VENLAFAXINE HCL 37.5 MG TAB PO SCH ×2 (09:06→16:46)
[2021-01-25] MEDS: LIDOCAINE 5% 1 PATCH TD SCH (09:06)
[2021-01-25] MEDS: FERROUS SULFATE 325 MG TAB PO SCH ×2 (09:08→20:16)
[2021-01-25] MEDS: FLUTICASONE PROPIONATE NA SPR 16 GM BTL SCH (09:12)
[2021-01-25] MEDS: SODIUM CHLORIDE 0.65% NA SOLN 45 ML (OCEAN) SCH ×2 (09:12→20:18)
--- NOTE | 2021-01-25 09:36 | XRay Report ---
XR chest 1V portable CLINICAL HISTORY: Left lower lobe pneumonia/developing abscess TECHNIQUE: Single frontal radiograph of the chest was obtained. Comparison: Comparison is made to chest one view 01/22/2021 FINDINGS: Stable tracheostomy tube. Calcified aortic knob is seen. Left lower lung airspace opacities unchanged from prior exam. No pneumothorax or right effusion. A left effusion cannot be excluded. IMPRESSION: Stable appearance of left airspace opacity which may represent atelectasis, pneumonia, and/or aspirat ion. Underlying left pleural effusion cannot be entirely excluded. ACT 112: Negative or not required by law. Electronically signed by: John Cedeno M.D. 01/25/2021 9:35 AM
--- NOTE | 2021-01-25 12:02 | Pulmonology Progress Note ---
Date of Service January 25, 2021 Assessment & Plan (1) Pneumonia: (2) Sepsis: (3) Dysphagia: (4) Tracheostomy dependent: (5) Hemoptysis: Plan: Impression: 65-year-old female which is tracheostomy dependent secondary to previous head and neck revision for cancer 4 years ago. Patient developed progressive sputum production followed by hemoptysis. She had large amount of clotted sputum and blood and had difficulty clearing tracheostomy inner cannula. She presented to the emergency department is found to be with signs and symptoms of sepsis. She was started on broad-spectrum antibiotics. Inner cannula replaced several times as patient cleans it herself and dislodges it. She denies any fever or chills. Complaint of right-sided rib pain. Recommendations: --Necrotizing pneumonia * With cavitary lesion and dense consolidative process in the left lower lobe * Sputum culture growing MRSA, continue with antibiotics * Continue supportive care with oxygen supplementation through trach collar as tolerated -- Hemoptysis Decreasing in amount * Patient has a large pneumonia at the left lower base. This appears to be developing an abscess. * Hemoptysis is common and bronchitis and pneumonia and most likely this is the etiology for her bleeding. * Will start patient with guaifenesin with codeine every 6 hours * Patient is not on any anticoagulation but is on Plavix and aspirin for longstanding CAD. Last PCI or other intervention was in 2016. Hold Plavix and aspirin for now. Discussed with cardiology. They agree * Treat pneumonia -- Tracheostomy dependent * History of head and neck cancer with revision 4 years ago with tracheostomy * Patient has a #6 Shiley uncuffed * They attempted to downgrade to a #4 in the past but she had respiratory failure. * Will keep a #6 Shiley trach at bedside -- Dysphagia * Patient has longstanding dysphagia and silent aspiration * VFSS in 2019 showed silent aspiration with trapping in the vallecula * Discussed at length the risk of aspiration with the patient. She was adamant that she "will eat what she wants to eat" Plan: Chest x-ray from today still shows significant consolidative process on the left side Patient might be developing small left-sided pleural effusion Awaiting the blood culture for another 24 hours. If they are negative than patient will need PICC for prolonged antibiotics Surgical intervention for the left-sided pneumonia cannot be totally excluded. We will need to see how the patient responds in the next couple of weeks. 40 mg of Lasix given today Please note the above document was generated using voice recognition software. It may contain grammatical, syntax or spelling errors.Any formal questions or concerns about the content, text or information contained within the body of this dictation should be directly addressed to the provider for clarification. Admission and Anticipated Discharge Date Admission Date: January 23, 2021 Subjective Patient seen and examined at bedside. No acute distress, no wheezing Patient says her cough is decreasing amount She still gets occasional blood-tinged phlegm but is decrease in intensity and frequency Occasional chest pain on coughing Denies any nausea or vomiting No headache, no blurry vision She still spiking low-grade fever Review of Systems Review of Systems: All systems reviewed & are unremarkable except as noted in Subjective Physical Exam Physical Exam: Constitutional: No acute distress HEENT: EOMI, PERRLA, positive trach Respiratory system: Decreased air entry bilaterally, no wheeze, rhonchi, positive crackles bilateral lower lobes CVS: S1-S2 positive, no murmurs or gallops Abdomen: Soft, nontender, nondistended, positive bowel sounds x4 Extremities: +2 pulses bilaterally radialis/ dorsalis pedis, no cyanosis, no edema Neuro: Awake alert oriented x3 Psych: Normal mood and affect G/U: No Graham Skin: no rashes, warm and dry Lymphatic: no cervical or axillary lymphadenopathy Results & Data Results & Data ([facility]) Vital Signs (Past 12 Hours) Vital Signs Temp Pulse Pulse Resp BP Pulse Ox Pulse Ox 01/25/21 03:40 37.6 C H 109 H 28 H 126/80 95 01/25/21 02:00 90 01/25/21 00:09 108 H 01/25/21 00:02 37.7 C H 107 H 28 H 124/82 93 01/25/21 05:01 01/25/21 05:01 PG Care Time/CCT Total # of Minutes Spent Total Time Spent with Patient: Total time spent is greater than 50% in coordination of care (as documented) at patient's floor/unit and/or counseling patient: Coding Level of Care Code 91999 Subseq Hosp Care Lvl 3 Diagnoses Pneumonia J18.9 Sepsis A41.9 Dysphagia R13.10 Tracheostomy dependent Z93.0 Hemoptysis R04.2
--- NOTE | 2021-01-25 12:38 | Consultation Report ---
NEPHROLOGY CONSULTATION NOTE REASON FOR CONSULTATION: Hyponatremia. HISTORY OF PRESENT ILLNESS: The patient is a 65-year-old female who was admitted 3 days ago when she presented to the hospital with 1-week history of sinus congestion, worsening hemoptysis, shortness o f breath. Outpatient COVID-19 test was negative. Outpatient chest x-ray showed left lower lobe pneu monia. Augmentin was added to the azithromycin course, but despite that she kept getting worse and p resented to the hospital. She was admitted in the intensive care unit with a diagnosis of severe sep sis secondary to pneumonia. I have been consulted for hyponatremia, which is fairly mild at this edgard e. Serum sodium was 127 earlier this morning. Since admission, it has fluctuated within the range o f 124-130. Urine osmolality has been done and it is inappropriately high at 515. Urine sodium is 17 . The patient's oral intake of solid food is pretty low. She has a tracheostomy following surgery f or the laryngeal cancer. Other medical problems include chronic intermittent hyponatremia as well as history of aspiration risk, peripheral vascular disease, hypertension, COPD, and pulmonary hypertens ion. She is making urine, although it is not accurately measured as she is on incontinence diaper an d they are only counting the diaper count. At this point, she has been downgraded to regular floor ev en though she is physically in the ICU. Both cardiology and pulmonary have seen the patient yesterday . She was given one dose of Lasix 20 mg IV earlier today. PAST MEDICAL AND SURGICAL HISTORY: Includes coronary artery disease, status post stent; peripheral v ascular disease; hypertension; COPD; pulmonary hypertension; laryngeal cancer, status post tracheosto my secondary to supraglottic edema/radiation; chronic anemia, baseline hemoglobin around 10; chronic intermittent hyponatremia; ongoing tobacco use; history of aspiration risk; carpal tunnel surgery; tracheoscopy; tracheostomy; right neck lump removal; tonsillectomy; partial gastrectomy. FAMILY HISTORY: Negative for renal disease or dialysis. PERSONAL AND SOCIAL HISTORY: Ongoing smoking still now, half to 1 pack a day, few alcoholic drinks p er week, but nothing excessive. ALLERGIES: List was reviewed in detail and is as per the reconciliation list. MEDICATIONS: Home medication list was also reviewed in detail and is as per the reconciliation list. Special interest to nephrology, she does take Lasix 20 mg tablet once a day, which she has not been getting, but she has got intermittent IV Lasix. REVIEW OF SYSTEMS: As per HPI. Unless stated otherwise, 12 systems reviewed and is negative. The pa cricket has hard time speaking given the tracheostomy status and cough when she speaks, so hard to obta in history. PHYSICAL EXAMINATION: GENERAL: A middle-aged white female, who looks older than her age. She appears chronically ill. Sh e is awake, alert, oriented x3. Mucous membrane is moist. NECK: Supple. No jugular venous distention. CHEST: Bilateral basal crackles, occasional rhonchi and wheezing. CARDIOVASCULAR: S1 and S2, regular. ABDOMEN: Soft, nontender. EXTREMITIES: Show no edema. LABORATORY TESTS: Reviewed in detail, as stated in HPI. She does have chronic intermittent hyponatr emia during her previous admission. She has always had somewhat low serum sodium even way back in 201 7. On admission, she had serum sodium of 126 and since then has been in the range of 124-130. Urine osmolality is inappropriately high at 515. Urine sodium 17. Urine specific gravity 1.021. ASSESSMENT AND PLAN: A 65-year-old female with tracheostomy status following the surgery for the lar yngeal cancer, now admitted with sepsis related with pneumonia. She has chronic mild hyponatremia an d I have been consulted for acute worsening of the hyponatremia. Hyponatremia: She does have chronic mild hyponatremia for the last few years. Every single hospital admission, she does get low serum sodium and same thing has happened this admission. Her oral intak e of solid food is very low, and this is definitely contributing in a big way. Her urine osmolality is inappropriately high at 515. Her volume status is somewhat hard to assess, but I believe she is f airly euvolemic at this time, so this is a case of euvolemic hyponatremia, most likely with underlyin g SIADH and worsening by low solid food intake, but her serum sodium is not really that low, so I do not expect this to cause any major problem and I really do not expect this to get better in a signifi cant way regardless of what we do unless she dramatically increased oral solid food intake. RECOMMENDATIONS: 1. Input output charting. 2. Encourage more solid food intake, especially protein. 3. Add urea 15 g b.i.d. 4. Free fluid restriction of 1200 mL per day. 5. I will hold off on IV fluids as well as Lasix at this time. We can do labs once daily as it has been fairly stable for the last 4 days and serum sodium is still more than 125. Job ID: [id number]
[2021-01-25] MEDS: UREA (UREA-NA) 15 GM PACK PO SCH ×2 (12:43→20:18)
[2021-01-25] MEDS ORDERED: VANCOMYCIN TROUGH ONE (15:30)
[2021-01-25] MEDS: VANCOMYCIN HCL 1,750 MG in SODIUM CHLORIDE 0.9% 500 ML IV SCH (16:45)
--- NOTE | 2021-01-25 18:56 | Hospitalist Progress Note ---
Date of Service January 25, 2021 Assessment & Plan (1) Sepsis: Plan: Severe sepsis Pneumonia Possible aspiration Failed outpatient treatment H/O non compliance with speech recommendations --CTA:No evidence of pulmonary embolism. Prominent left lower lobe airspace opacity with thick rim pneumatocele likely representing a developing pulmonary abscess. Mediastinal lymphadenopathy is likely reactive. 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 Patient decannulated the inner tracheostomy tube in the ER replaced by ED Continue supplemental oxygen as needed Monitor Dysphagia VFSS in 2019 showed silent aspiration with trapping in the vallecula H/O Non compliance Speech eval Aspiration precautions H/O CAD, PVD S/P stent Troponin elevation secondary to illness DD:demand ischemia in the setting of sepsis and pneumonia ECHO showed mild hypokinesis of mid apical anterior septal No acute EKG changes Appreciate cardiology input Echo findings consistent with prior history of CT as per cards Troponin trending down Aspirin, Plavix initially held secondary to hemoptysis Continue Statin Resume aspirin 81 mg daily given extensive vascular disease as per cards COPD Pulmonary hypertension as per records 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 use Nebs PRN 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 abuse Dukey Rider to quit Hypothyroidism Continue levothyroxine DVT Px: SCDs for now Code Status Full Code Admission and Anticipated Discharge Date Admission Date: January 23, 2021 Subjective Patient seen and examined at bedside. Much Less hemoptysis today Denies any significant dyspnea, cough Discussed with pulmonology today Sodium levels decreased to 127 Discussed with patient's family at bedside Febrile overnight Review of Systems Review of Systems: All systems reviewed & are unremarkable except as noted in Subjective Physical Exam Physical Exam: Physical Exam: Vitals signs as noted above General Appearance:Moderately built and nourished, no apparent distress Head: normocephalic, Atraumatic, +Trach Eyes: normal inspection, EOMI Neck: supple, Trachea midline Respiratory/Chest: Decreased coarse breath sounds Cardiovascular: S1, S2, No murmur Abdomen/GI:Soft, Non tender, Bowel sounds present Extremities/Musculoskeletal:normal inspection, no edema Neurologic/Psych:AAOX3, grossly no focal neurological deficits Skin: normal color, warm Results & Data Results & Data ([facility]) Vital Signs (Past 12 Hours) Vital Signs Temp Pulse Pulse Resp BP Pulse Ox 01/25/21 17:55 37.3 C 99 H 18 106/66 97 01/25/21 17:23 37.5 C 115 H 20 150/83 H 92 01/25/21 16:06 101 H 01/25/21 09:15 37.3 C 106 H 16 126/85 98 01/25/21 08:00 103 H Laboratory Results Short CBC 01/25/21 Range/Units 05:01 WBC 18.25 H (4.8-10.8) K/uL Hgb 8.6 L (12.0-16.0) g/dL Hct 26.8 L (37-47) % Plt Count 432 H (130-400) K/uL BMP 01/25/21 05:01 Sodium 127 L Potassium 3.8 Chloride 95 L Carbon Dioxide 25 BUN 12 Creatinine 0.71 Glucose 111 H Calcium 8.4 L
[2021-01-25] MEDS: ATORVASTATIN 20 MG TAB PO SCH (20:16)
[2021-01-25] MEDS: busPIRone 5 MG TAB PO PRN (23:33)
[2021-01-26] MEDS: PIPERACILLIN/TAZOBACTAM 3.375 GM in DEXTROSE 5% 100 ML IV SCH ×3 (04:22→21:11)
[2021-01-26 05:31] LABS: Hematocrit (blood only) 27.7 % (37-47); Hemoglobin 8.9 g/dL (12.0-16.0); Mean Corpuscular Hemoglobin 29.4 pg (25-34); Mean Corpuscular Hgb Conc 32.1 g/dL (32-36); Mean Corpuscular Volume 91.4 fL (80-100); Mean Platelet Volume 9.2 fL (7.4-10.4); Platelet Count 469 K/uL (130-400); RDW Coefficient of Variation 23.1 % (11.5-14.5); RDW Standard Deviation 75.3 fL (36.4-46.3); Red Blood Count 3.03 M/uL (4.2-5.4); White Blood Count 17.01 K/uL (4.8-10.8)
[2021-01-26 05:59] LABS: BUN Creatinine Ratio 30.4 (10-20); Calcium 8.5 mg/dl (8.5-10.1); Est GFR (African American) 103.9 ml/min; Est GFR (Non-African American) 89.7 ml/min; Potassium 3.7 mmol/L (3.5-5.1)
[2021-01-26] MEDS: guaiFENesin/DEXTROM SYRUP 100MG/10MG 5ML UDC PO SCH ×4 (06:09→23:12)
[2021-01-26] MEDS: LEVOTHYROXINE SODIUM 50 MCG TABLET PO SCH (06:09)
[2021-01-26] MEDS: HYDROCODONE/ACETAMOPHEN 5/325MG TAB PO PRN ×2 (06:10→21:12)
--- NOTE | 2021-01-26 06:19 | Communication Note ---
Date of Service: January 26, 2021 Made aware by RN of increased hemoptysis from tracheostomy. AP Necrotizing pneumonia Continue antibiotic Rx Antitussives as needed Solu-Medrol 1 dose Hold aspirin for now Resume if H&H stable Will relay to AM provider.
[2021-01-26] MEDS ORDERED: methylPREDNISolone 20 MG in SYRINGE 0 ML IV ONE (06:30)
[2021-01-26] MEDS: VENLAFAXINE HCL 37.5 MG TAB PO SCH ×2 (08:07→16:57)
[2021-01-26] MEDS: FEXOFENADINE HCL 180 MG TAB PO SCH (08:07)
[2021-01-26] MEDS: METOPROLOL SUCC 50MG EXT REL TAB PO SCH ×2 (08:07→21:11)
[2021-01-26] MEDS: busPIRone 5 MG TAB PO PRN (08:07)
[2021-01-26] MEDS: UREA (UREA-NA) 15 GM PACK PO SCH ×2 (08:08→21:13)
[2021-01-26] MEDS: LIDOCAINE 5% 1 PATCH TD SCH (08:08)
[2021-01-26] MEDS: FLUTICASONE PROPIONATE NA SPR 16 GM BTL SCH (08:08)
[2021-01-26] MEDS: SODIUM CHLORIDE 0.65% NA SOLN 45 ML (OCEAN) SCH ×2 (08:08→21:13)
[2021-01-26] MEDS: FERROUS SULFATE 325 MG TAB PO SCH ×2 (08:08→21:12)
[2021-01-26] MEDS: MoRPHine SULFATE 2 MG/ML CARP IV PRN (10:04)
--- NOTE | 2021-01-26 13:39 | Pulmonology Progress Note ---
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 Patient developed progressive sputum production followed by hemoptysis. She had large amount of clotted sputum and blood and had difficulty clearing tracheostomy inner cannula. She presented to the emergency department is found to be with signs and symptoms of sepsis. She was started on broad-spectrum antibiotics. Inner cannula replaced several times as patient cleans it herself and dislodges it. She denies any fever or chills. Complaint of right-sided rib pain. Recommendations: --Necrotizing pneumonia * With cavitary lesion and dense consolidative process in the left lower lobe * Sputum culture growing MRSA, continue with antibiotics * Continue supportive care with oxygen supplementation through trach collar as tolerated -- Hemoptysis Decreasing in amount * Patient has a large pneumonia at the left lower base. This appears to be developing an abscess. * Continue with guaifenesin with codeine every 6 hours * Patient is not on any anticoagulation but is on Plavix and aspirin for longstanding CAD. Last PCI or other intervention was in 2016. Hold Plavix and aspirin for now. Discussed with cardiology. They agree -- Tracheostomy dependent * History of head and neck cancer with revision 4 years ago with tracheostomy * Patient has a #6 Shiley uncuffed * They attempted to downgrade to a #4 in the past but she had respiratory failure. -- Dysphagia * Patient has longstanding dysphagia and silent aspiration * VFSS in 2019 showed silent aspiration with trapping in the vallecula * Discussed at length the risk of aspiration with the patient. She was adamant that she "will eat what she wants to eat" Plan: Give 20 mg of Lasix today Patient blood culture has been negative. Can consider transitioning to linezolid Patient will need prolonged antibiotics for at least 21-28 days Pulmonary will continue to follow Please note the above document was generated using voice recognition software. It may contain grammatical, syntax or spelling errors.Any formal questions or concerns about the content, text or information contained within the body of this dictation should be directly addressed to the provider for clarification. Admission and Anticipated Discharge Date Admission Date: January 23, 2021 Subjective Patient seen and examined at bedside. No acute distress, no adverse events overnight She was on trach collar saturating 99% Still bringing up phlegm hemoptysis has almost resolved She still complains of some blood-tinged phlegm here and there Denies any nausea or vomiting Does complain of occasional chest pain on coughing which is reproducible Review of Systems Review of Systems: All systems reviewed & are unremarkable except as noted in Subjective Physical Exam Physical Exam: Constitutional: No acute distress HEENT: EOMI, PERRLA, positive trach Respiratory system: Decreased air entry bilaterally, no wheeze, rhonchi, pos itive crackles bilateral lower lobes CVS: S1-S2 positive, no murmurs or gallops Abdomen: Soft, nontender, nondistended, positive bowel sounds x4 Extremities: +2 pulses bilaterally radialis/ dorsalis pedis, no cyanosis, no edema Neuro: Awake alert oriented x3 Psych: Normal mood and affect G/U: No Graham Skin: no rashes, warm and dry Lymphatic: no cervical or axillary lymphadenopathy Results & Data Results & Data ([facility]) Vital Signs (Past 12 Hours) Vital Signs Temp Pulse Pulse Resp BP Pulse Ox Pulse Ox 01/26/21 12:00 36.8 C 98 H 16 128/73 99 01/26/21 09:51 102 H 01/26/21 08:31 36.8 C 109 H 19 128/80 89 L 01/26/21 04:08 36.6 C 22 140/74 100 01/26/21 02:00 100 01/26/21 05:12 01/26/21 05:12 PG Care Time/CCT Total # of Minutes Spent Total Time Spent with Patient: Total time spent is greater than 50% in coordination of care (as documented) at patient's floor/unit and/or counseling patient: Coding Level of Care Code 47271 Subseq Hosp Care Lvl 2 Diagnoses Pneumonia J18.9 Sepsis A41.9 Dysphagia R13.10 Tracheostomy dependent Z93.0 Hemoptysis R04.2
[2021-01-26] MEDS ORDERED: FUROSEMIDE INJ 20 MG/2 ML VIAL IV ONE (13:45)
[2021-01-26] MEDS: NEOMYCIN/POLYMYX/BACITR OINT 15 GM TUBE EXT SCH ×2 (14:54→21:13)
--- NOTE | 2021-01-26 14:59 | Nephrology Progress Note ---
Date of Service January 26, 2021 Assessment & Plan Admission and Anticipated Discharge Date Admission Date: January 23, 2021 Subjective No new issues. PHYSICAL EXAMINATION: GENERAL: A middle-aged white female, who looks older than her age. She appears chronically ill. She is awake, alert, oriented x3. Mucous membrane is moist. NECK: Supple. No jugular venous distention. CHEST: Bilateral basal crackles, occasional rhonchi and wheezing. CARDIOVASCULAR: S1 and S2, regular. ABDOMEN: Soft, nontender. EXTREMITIES: Show no edema. LABORATORY TESTS: Reviewed in detail, as stated in HPI. She does have chronic intermittent hyponatremia during her previous admission. She has always had somewhat low serum sodium even way back in 2017. On admission, she had serum sodium of 126 and since then has been in the range of 124-130. Urine osmolality is inappropriately high at 515. Urine sodium 17. Urine specific gravity 1.021. ASSESSMENT AND PLAN: A 65-year-old female with tracheostomy status following the surgery for the laryngeal cancer, now admitted with sepsis related with pneumonia. She has chronic mild hyponatremia and I have been consulted for acute worsening of the hyponatremia. Hyponatremia: She does have chronic mild hyponatremia for the last few years. Every single hospital admission, she does get low serum sodium and same thing has happened this admission. Her oral intake of solid food is very low, and this is definitely contributing in a big way. Her urine osmolality is inappropriately high at 515. 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 Her serum sodium is not really that low, so I do not expect this to cause any major problem and I really do not expect this to get better in a significant way regardless of what we do unless she dramatically increased her oral solid food intake. RECOMMENDATIONS: 1. Input output charting. 2. Encourage more solid food intake, especially protein. 3. Continue urea 15 g b.i.d. 4. Free fluid restriction of 1200 mL per day. 5. I will hold off on IV fluids as well as Lasix at this time. We can do labs once daily as it has been fairly stable for the last 4 days and serum sodium is still more than 125. Results & Data ([facility]) Vital Signs (Past 12 Hours) Vital Signs Temp Pulse Pulse Resp BP Pulse Ox 01/26/21 12:00 36.8 C 98 H 16 128/73 99 01/26/21 09:51 102 H 01/26/21 08:31 36.8 C 109 H 19 128/80 89 L 01/26/21 04:08 36.6 C 22 140/74 100
[2021-01-26] MEDS ORDERED: VANCOMYCIN TROUGH ONE (15:30)
[2021-01-26 15:41] LABS: Hemoglobin 8.3 g/dL (12.0-16.0)
--- NOTE | 2021-01-26 16:42 | Pharmacy Report ---
Pharmacy Vanc AUC Short Note - Date of Service January 26, 2021 - Assessment & Plan Assessment 65 year old F receiving VANCOMYCIN for treatment of PULMONARY. Pertinent microbiologic data includes: SPUTUM culture growing mrsa. Day # 4 of antimicrobial therapy. Plan Vancomycin * AUC/ANTON is the preferred PK/PD target for vancomycin * AUC guided dosing is effective and associated with decreased risk of nephrotoxicity compared to traditional trough targets * Trough level of 16.9 mcg/mL is predicted to achieve target AUC/ANTON of 400-600 mg/L.hr and may be associated with a 11 % risk of nephrotoxicity * Continue dose of 1750 mg IV every 24 hours * ADDITIONAL TROUGHS TO BE DETERMINED BASED ON CLINICAL PICTURE Pharmacy will continue to follow and will adjust dose/frequency as necessary. Thank you.
[2021-01-26] MEDS: VANCOMYCIN HCL 1,750 MG in SODIUM CHLORIDE 0.9% 500 ML IV SCH (16:58)
--- NOTE | 2021-01-26 17:15 | Hospitalist Progress Note ---
Date of Service January 26, 2021 Assessment & Plan (1) Sepsis: Plan: Severe sepsis Pneumonia Possible aspiration Failed outpatient treatment H/O non compliance with speech recommendations --CTA:No evidence of pulmonary embolism. Prominent left lower lobe airspace opacity with thick rim pneumatocele likely representing a developing pulmonary abscess. Mediastinal lymphadenopathy is likely reactive. --+MRSA screen --Continue supplemental oxygen as needed Sputum culture MRSA Blood cultures negative to date Continue IV vancomycin, Zosyn Lactate levels normalized Will need Prolonged course of antibiotics Appreciate pulmonary input Consider to change antibiotics to linezolid Follow-up cultures Hemoptysis continues to improve Hyponatremia History of hyponatremia as well Could have underlying SIADH Added Urea 15 g twice daily Continue fluid restriction Appreciate nephrology input Monitor sodium level Sodium 129 today Hemoptysis secondary to above in the setting of dual antiplatelet therapy Plavix held Management as above Monitor CBC 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 Patient decannulated the inner tracheostomy tube in the ER replaced by ED Continue supplemental oxygen as needed Monitor Dysphagia VFSS in 2019 showed silent aspiration with trapping in the vallecula H/O Non compliance Speech eval Aspiration precautions H/O CAD, PVD S/P stent Troponin elevation secondary to illness DD:demand ischemia in the setting of sepsis and pneumonia ECHO showed mild hypokinesis of mid apical anterior septal No acute EKG changes Appreciate cardiology input Echo findings consistent with prior history of [place] as per cards Troponin trending down Aspirin, Plavix initially held secondary to hemoptysis Continue Statin Resume aspirin 81 mg daily given extensive vascular disease as per cards COPD Pulmonary hypertension as per records 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 use Nebs PRN 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 abuse 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 States having chronic toe pain Hemoptysis continues to improve Sodium 129 today Denies any subjective change in dyspnea, cough Discussed with nephrology Afebrile Review of Systems Review of Systems: All systems reviewed & are unremarkable except as noted in Subjective Physical Exam Physical Exam: Physical Exam: Vitals signs as noted above General Appearance:Moderately built and nourished, no apparent distress Head: normocephalic, Atraumatic, +Trach Eyes: normal inspection, EOMI Neck: supple, Trachea midline Respiratory/Chest: Decreased coarse breath sounds, scattered wheezes, rhonchi Cardiovascular: S1, S2, No murmur Abdomen/GI:Soft, Non tender, Bowel sounds present Extremities/Musculoskeletal:normal inspection, no edema Neurologic/Psych:AAOX3, grossly no focal neurological deficits Skin: normal color, warm Results & Data Results & Data ([facility]) Vital Signs (Past 12 Hours) Vital Signs Temp Pulse Pulse Resp BP Pulse Ox 01/26/21 12:00 36.8 C 98 H 16 128/73 99 01/26/21 09:51 102 H 01/26/21 08:31 36.8 C 109 H 19 128/80 89 L Laboratory Results Short CBC 01/26/21 01/26/21 Range/Units 05:12 15:24 WBC 17.01 H (4.8-10.8) K/uL Hgb 8.9 L 8.3 L (12.0-16.0) g/dL Hct 27.7 L 26.0 L (37-47) % Plt Count 469 H (130-400) K/uL BMP 01/26/21 05:12 Sodium 129 L Potassium 3.7 Chloride 95 L Carbon Dioxide 29 BUN 21 H D Creatinine 0.70 Glucose 95 Calcium 8.5
[2021-01-26] MEDS: ATORVASTATIN 20 MG TAB PO SCH (21:12)
[2021-01-27] MEDS: PIPERACILLIN/TAZOBACTAM 3.375 GM in DEXTROSE 5% 100 ML IV SCH ×3 (05:04→19:32)
[2021-01-27] MEDS: LEVOTHYROXINE SODIUM 50 MCG TABLET PO SCH (05:05)
[2021-01-27] MEDS: guaiFENesin/DEXTROM SYRUP 100MG/10MG 5ML UDC PO SCH ×4 (05:05→23:46)
[2021-01-27] MEDS: HYDROCODONE/ACETAMOPHEN 5/325MG TAB PO PRN ×2 (05:34→15:51)
[2021-01-27 06:49] LABS: Hematocrit (blood only) 25.9 % (37-47); Hemoglobin 8.2 g/dL (12.0-16.0); Mean Corpuscular Hemoglobin 29.1 pg (25-34); Mean Corpuscular Hgb Conc 31.7 g/dL (32-36); Mean Corpuscular Volume 91.8 fL (80-100); Mean Platelet Volume 9.5 fL (7.4-10.4); Platelet Count 524 K/uL (130-400); RDW Coefficient of Variation 23.3 % (11.5-14.5); RDW Standard Deviation 76.5 fL (36.4-46.3); Red Blood Count 2.82 M/uL (4.2-5.4); White Blood Count 17.28 K/uL (4.8-10.8)
[2021-01-27 07:21] LABS: BUN Creatinine Ratio 51.8 (10-20); Creatinine Clr Calc Pharmacy 54.7 ml/min; Est GFR (African American) 79.9 ml/min; Est GFR (Non-African American) 68.9 ml/min
[2021-01-27] MEDS: LIDOCAINE 5% 1 PATCH TD SCH (08:59)
[2021-01-27] MEDS: FLUTICASONE PROPIONATE NA SPR 16 GM BTL SCH (09:00)
[2021-01-27] MEDS: SODIUM CHLORIDE 0.65% NA SOLN 45 ML (OCEAN) SCH ×2 (09:00→20:26)
[2021-01-27] MEDS: ACETAMINOPHEN 325 MG TAB PO PRN (09:03)
[2021-01-27] MEDS: FERROUS SULFATE 325 MG TAB PO SCH ×2 (09:04→20:25)
[2021-01-27] MEDS: METOPROLOL SUCC 50MG EXT REL TAB PO SCH ×2 (09:04→20:24)
[2021-01-27] MEDS: FEXOFENADINE HCL 180 MG TAB PO SCH (09:04)
[2021-01-27] MEDS: busPIRone 5 MG TAB PO PRN ×2 (09:04→21:58)
[2021-01-27] MEDS: UREA (UREA-NA) 15 GM PACK PO SCH ×2 (09:04→20:25)
[2021-01-27] MEDS: NEOMYCIN/POLYMYX/BACITR OINT 15 GM TUBE EXT SCH ×2 (09:05→20:26)
[2021-01-27] MEDS: ASPIRIN 81 MG ECTAB PO SCH (09:05)
[2021-01-27] MEDS: VENLAFAXINE HCL 37.5 MG TAB PO SCH ×2 (09:05→16:21)
--- NOTE | 2021-01-27 10:06 | XRay Report ---
XR chest 1V portable HISTORY: Shortness of breath. Pneumonia. COMPARISON: Chest 01/25/2021. FINDINGS: No change in the left mid to lower lung zone airspace opacities with a cavitary focus withi n the left midlung zone. A tracheostomy tube is in good position. No pneumothorax. Suspect trace bila teral pleural effusions. Mild interstitial thickening remains unchanged. The heart remains borderline enlarged. Emphysema again noted. IMPRESSION: No change in the left mid to lower lung airspace opacities with a cavitary focus within the left midl joselin zone. ACT 112: Negative or not required by law. Electronically signed by: Jesús Cohen M.D. 01/27/2021 10:05 AM
--- NOTE | 2021-01-27 12:10 | Pulmonology Progress Note ---
Date of Service January 27, 2021 Assessment & Plan (1) Pneumonia: (2) Sepsis: (3) Dysphagia: (4) Tracheostomy dependent: (5) Hemoptysis: Plan: Impression: 65-year-old female tracheostomy dependent secondary to previous head and neck revision for cancer 4 years ago. Patient developed progressive sputum production followed by hemoptysis. She had large amount of clotted sputum and blood and had difficulty clearing tracheostomy inner cannula. She presented to the emergency department is found to be with signs and symptoms of sepsis. She was started on broad-spectrum antibiotics. Inner cannula replaced several times as patient cleans it herself and dislodges it. She denies any fever or chills. Complaint of right-sided rib pain. CT scan s hows cavitary pneumonia and cultures are positive for MRSA Recommendations: --Necrotizing pneumonia: Currently day #6 vancomycin and Zosyn. Recommend ID consultation to determine duration of antibiotics. She will require a follow-up CT scan down the road. Anticipate that she will need likely 21 days of IV antimicrobial agents but would defer to ID. This does appear to be lung abscess. Cultures have not shown any gram-negative rods and de-escalation of Zosyn would be appropriate but again will defer to ID -- Hemoptysis -continue to follow at this point time. Her sputum production is decreasing and clearing up. Plavix is being held. If hemoptysis remains under control, can consider restarting at some point. -- Tracheostomy dependent -trach care per respiratory therapy -- Dysphagia -per primary service. Patient noncompliant with dietary recommendations Patient significantly clinically improved. We will continue to follow with you Admission and Anticipated Discharge Date Admission Date: January 23, 2021 Subjective Patient seen and examined. 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 Patient reports that she feels somewhat better. She is no longer coughing up blood. She thinks her breathing is better. She is showing some clinical improvement albeit slowly Review of Systems Review of Systems: All systems reviewed & are unremarkable except as noted in Subjective Physical Exam Physical Exam: Constitutional: No acute distress HEENT: EOMI, PERRLA, positive trach Respiratory system: Decreased air entry bilaterally, no wheeze, rhonchi, p ositive crackles bilateral lower lobes CVS: S1-S2 positive, no murmurs or gallops Abdomen: Soft, nontender, nondistended, positive bowel sounds x4 Extremities: +2 pulses bilaterally radialis/ dorsalis pedis, no cyanosis, no edema Neuro: Awake alert oriented x3 Psych: Normal mood and affect G/U: No Graham Skin: no rashes, warm and dry Lymphatic: no cervical or axillary lymphadenopathy Results & Data Results & Data ([facility]) Vital Signs (Past 12 Hours) Vital Signs Temp Pulse Resp BP Pulse Ox Pulse Ox 01/27/21 08:48 36.4 C L 100 H 18 127/78 90 01/27/21 08:00 100 Laboratory Results 01/27/21 06:05 01/27/21 06:05 Medications Administered Chest x-ray from today was independently reviewed. There are consolidative changes within the left lower lung field. Microbiology: Sputum culture with MRSA PG Care Time/CCT Total # of Minutes Spent Total Time Spent with Patient: Total time spent is greater than 50% in coordination of care (as documented) at patient's floor/unit and/or counseling patient: Coding Level of Care Code 83384 Subseq Hosp Care Lvl 2 Diagnoses Pneumonia J18.9 Sepsis A41.9 Dysphagia R13.10 Tracheostomy dependent Z93.0 Hemoptysis R04.2
[2021-01-27] MEDS: VANCOMYCIN HCL 1,750 MG in SODIUM CHLORIDE 0.9% 500 ML IV SCH (15:51)
--- NOTE | 2021-01-27 19:12 | Nephrology Progress Note ---
Date of Service January 27, 2021 Assessment & Plan (1) Hyponatremia: Plan: small improvement in acute on chronic hyponatremia, worse here in setting of low solute diet. K ok. -encourage protein shakes which do not count toward fluid limit -encourage dietary protein - consider dietitcan consult -cont bid urea 15 gm dose -cont 1.2L FR daily -daily bmp -lasix prn only for now Admission and Anticipated Discharge Date Admission Date: January 23, 2021 Subjective seen on rounds at 1230 approx. no c/o worsening breathing; feels her R leg chr onically larger than L; no N/V Review of Systems Review of Systems: All systems reviewed & are unremarkable except as noted in Subjective Physical Exam Constitutional: well developed, well nourished and cooperative; no acute distress Eyes: EOM intact bilaterally ENMT: Ears: no external ear abnormality Nose: no external nose abnormality Mouth: + dry oral mucous membranes Neck: + tracheostomy present; no nuchal rigidity Respiratory: normal respiratory effort Auscultation: + diminished lung sounds (elisa R base) and + crackles (BL posteriorly) Cardiovascular: Rate/Rhythm: regular rate and regular rhythm Extremities: + edema (trace pretibial RLE and dorsum R foot) Gastrointestinal (Abdomen): Inspection/Auscultation: normal bowel sounds Percussion/Palpation: abdomen soft; abdomen nontender Musculoskeletal: Extremities: strength 5/5 throughout Skin: no rashes, warm and dry Neurologic: [place], fluent speech, no tremor Psychiatric: Orientation: alert and oriented x 3 Results & Data ([facility]) Vital Signs (Past 12 Hours) Vital Signs Temp Pulse Resp BP Pulse Ox Pulse Ox 01/27/21 15:19 36.3 C L 93 H 18 122/67 100 01/27/21 08:48 36.4 C L 100 H 18 127/78 90 01/27/21 08:00 100 Laboratory Results 01/27/21 06:05 01/27/21 06:05
[2021-01-27] MEDS: MoRPHine SULFATE 2 MG/ML CARP IV PRN (19:40)
--- NOTE | 2021-01-27 19:47 | Hospitalist Progress Note ---
Date of Service January 27, 2021 Assessment & Plan (1) Sepsis: Plan: Severe sepsis Pneumonia Possible aspiration Failed outpatient treatment H/O non compliance with speech recommendations --CTA:No evidence of pulmonary embolism. Prominent left lower lobe airspace opacity with thick rim pneumatocele likely representing a developing pulmonary abscess. Mediastinal lymphadenopathy is likely reactive. --+MRSA screen --Continue supplemental oxygen as needed Sputum culture MRSA Blood cultures negative to date Continue IV vancomycin, Zosyn Lactate levels normalized Will need Prolonged course of antibiotics Appreciate pulmonary input Hemoptysis resolved Linezolid--likely not an option given risk for serotonin syndrome while on buspirone, venlafaxine Consult ID for recommendations Leukocytosis stable Hyponatremia History of hyponatremia as well Could have underlying SIADH Added Urea 15 g twice daily Continue fluid restriction Appreciate nephrology input Monitor sodium level Sodium 130 today Hemoptysis secondary to above in the setting of dual antiplatelet therapy Plavix held Management as above Monitor CBC Resume Plavix as able 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 Patient decannulated the inner tracheostomy tube in the ER replaced by ED Continue supplemental oxygen as needed Monitor Dysphagia VFSS in 2019 showed silent aspiration with trapping in the vallecula H/O Non compliance Speech eval Aspiration precautions H/O CAD, PVD S/P stent Troponin elevation secondary to illness DD:demand ischemia in the setting of sepsis and pneumonia ECHO showed mild hypokinesis of mid apical anterior septal No acute EKG changes Appreciate cardiology input Echo findings consistent with prior history of [place] as per cards Troponin trending down Aspirin, Plavix initially held secondary to hemoptysis Continue Statin Resume aspirin 81 mg daily given extensive vascular disease as per cards Resume Plavix as able COPD Pulmonary hypertension as per records 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 use Nebs PRN 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 Hemoptysis resolved Slowly improving Sodium levels 130 Denies any dyspnea Still has cough expectorant Discussed with pulmonary today Review of Systems Review of Systems: All systems reviewed & are unremarkable except as noted in Subjective Physical Exam Physical Exam: Physical Exam: Vitals signs as noted above General Appearance:Moderately built and nourished, no apparent distress Head: normocephalic, Atraumatic, +Trach Eyes: normal inspection, EOMI Neck: supple, Trachea midline Respiratory/Chest: Decreased coarse breath sounds, minimal basal crackles Cardiovascular: S1, S2, No murmur Abdomen/GI:Soft, Non tender, Bowel sounds present Extremities/Musculoskeletal:normal inspection, no edema Neurologic/Psych:AAOX3, grossly no focal neurological deficits Skin: normal color, warm Results & Data Results & Data ([facility]) Vital Signs (Past 12 Hours) Vital Signs Temp Pulse Resp BP Pulse Ox Pulse Ox 01/27/21 15:19 36.3 C L 93 H 18 122/67 100 01/27/21 08:48 36.4 C L 100 H 18 127/78 90 01/27/21 08:00 100 Laboratory Results Short CBC 01/27/21 Range/Units 06:05 WBC 17.28 H (4.8-10.8) K/uL Hgb 8.2 L (12.0-16.0) g/dL Hct 25.9 L (37-47) % Plt Count 524 H (130-400) K/uL BMP 01/27/21 06:05 Sodium 130 L Potassium 4.0 Chloride 96 L Carbon Dioxide 28 BUN 45 H D Creatinine 0.87 Glucose 131 H Calcium 9.0
[2021-01-27] MEDS: ATORVASTATIN 20 MG TAB PO SCH (20:25)
[2021-01-28] MEDS: ALBUTEROL 0.083% NEBU SOLN 3 ML VIAL NEB PRN (03:07)
[2021-01-28] MEDS: PIPERACILLIN/TAZOBACTAM 3.375 GM in DEXTROSE 5% 100 ML IV SCH ×3 (03:44→19:52)
[2021-01-28] MEDS: LEVOTHYROXINE SODIUM 50 MCG TABLET PO SCH (06:16)
[2021-01-28] MEDS: guaiFENesin/DEXTROM SYRUP 100MG/10MG 5ML UDC PO SCH ×4 (06:16→23:54)
[2021-01-28 08:24] LABS: Hematocrit (blood only) 25.2 % (37-47); Mean Corpuscular Hemoglobin 29.4 pg (25-34); Mean Corpuscular Hgb Conc 31.7 g/dL (32-36); Mean Corpuscular Volume 92.6 fL (80-100); Mean Platelet Volume 9.2 fL (7.4-10.4); Platelet Count 461 K/uL (130-400); RDW Coefficient of Variation 23.3 % (11.5-14.5); RDW Standard Deviation 75.8 fL (36.4-46.3); Red Blood Count 2.72 M/uL (4.2-5.4); White Blood Count 18.72 K/uL (4.8-10.8)
[2021-01-28] MEDS: VENLAFAXINE HCL 37.5 MG TAB PO SCH ×2 (08:38→17:08)
[2021-01-28] MEDS: LIDOCAINE 5% 1 PATCH TD SCH (08:39)
[2021-01-28] MEDS: FERROUS SULFATE 325 MG TAB PO SCH ×2 (08:39→21:13)
[2021-01-28] MEDS: METOPROLOL SUCC 50MG EXT REL TAB PO SCH ×2 (08:39→21:13)
[2021-01-28] MEDS: UREA (UREA-NA) 15 GM PACK PO SCH (08:40)
[2021-01-28] MEDS: ASPIRIN 81 MG ECTAB PO SCH (08:40)
[2021-01-28] MEDS: busPIRone 5 MG TAB PO PRN (08:40)
[2021-01-28] MEDS: FEXOFENADINE HCL 180 MG TAB PO SCH (08:40)
[2021-01-28] MEDS: FLUTICASONE PROPIONATE NA SPR 16 GM BTL SCH (08:41)
[2021-01-28] MEDS: SODIUM CHLORIDE 0.65% NA SOLN 45 ML (OCEAN) SCH ×2 (08:42→21:15)
[2021-01-28] MEDS: NEOMYCIN/POLYMYX/BACITR OINT 15 GM TUBE EXT SCH ×2 (08:42→21:14)
[2021-01-28] MEDS: HYDROCODONE/ACETAMOPHEN 5/325MG TAB PO PRN ×2 (08:56→17:07)
--- NOTE | 2021-01-28 09:16 | Consultation ---
Date of Consultation January 28, 2021 Assessment & Plan (1) Peripheral arterial disease: Pt with BLE SFA occlusions which are chronic, no new sx or concerns. No indications for urgent vascular surgical intervention at this time. Pt follows with Dr Jaime as outpt and should continue to do so unless she wishes to transfer her care to us. Please call if needed. History of Present Illness Reason for Consultation: PAD Attending Physician: Hardeep Espino MD History of Present Illness 65 yo f with multiple medical problems, including CAD, HTN, anemia, COPD, and tracheostomy-dependent d/t laryngeal ca, admitted with possible pneumonia/sepsis, seen in consultation today for PAD. Pt was also seen by our service in March of 2020 and advised she had option to follow up with us or her regular vascular surgeon, Dr Jaime at [facility]. Pt preferred to follow with her previous vascular surgeon and states she just saw him a few months ago. States the discoloration and chronic pain in her BLE is unchanged for years. Has noted more swelling recently, but no new rest pain or claudication sx. States does not ambulate much and has not had any ulcerations on her feet/toes. Denies FERRER, fever, chest pain, SOB presently, abd pain, N/V, other new concerns. No new vascular imaging has been ordered this admission. BLE arterial US from March 2020 demonstrates BLE SFA occlusions with reconstitution. Allergies Allergy/AdvReac Type Severity Reaction Status Date / Time bee venom protein (honey bee) Allergy Severe Anaphylaxis Verified 01/23/21 00:54 latex Allergy Intermediate SKIN Verified 01/23/21 00:54 BLISTERS oxycodone [From Percocet] Allergy Intermediate Vomiting Verified 01/23/21 00:54 Home Medications Medication Instructions Recorded Confirmed Type clopidogrel 75 mg tablet 75 mg PO QAM 11/25/17 01/23/21 History furosemide 20 mg tablet (Lasix) 20 mg PO DAILY 03/01/19 01/23/21 History metoprolol tartrate 25 mg tablet 25 mg PO BID 03/01/19 01/23/21 History soft lens rinse,store solution 03/01/19 03/01/19 History (Saline Sensitive Eyes) atorvastatin 20 mg tablet 20 mg PO HS 10/31/19 01/23/21 History buspirone 5 mg tablet 5 mg PO BID PRN 10/31/19 01/23/21 History venlafaxine 75 mg tablet 75 mg PO BID 10/31/19 01/23/21 History levothyroxine 50 mcg tablet 50 mcg PO DAILYBB 04/04/20 01/23/21 History sodium chloride 0.65 % nasal spray 2 spray NA BID #1 ml 04/05/20 01/23/21 Rx aerosol (Saline Mist) acetaminophen 325 mg tablet 650 mg PO DIRECTED PRN 01/23/21 01/23/21 History (Tylenol) albuterol sulfate 2.5 mg INHALATION Q6H PRN 01/23/21 01/23/21 History albuterol sulfate 90 mcg/actuation 2 puff INHALATION Q4 PRN 01/23/21 01/23/21 History aerosol inhaler amoxicillin 875 mg-potassium 1 tab PO BID 01/23/21 01/23/21 History clavulanate 125 mg tablet aspirin 81 mg tablet,delayed 81 mg PO DAILY 01/23/21 01/23/21 History release ferrous sulfate 325 mg (65 mg 325 mg PO BID 01/23/21 01/23/21 History iron) tablet fexofenadine 180 mg tablet 180 mg PO DAILY 01/23/21 01/23/21 History fluticasone propionate 50 2 spray INTRANASAL DAILY 01/23/21 01/23/21 History mcg/actuation nasal spray,suspension sennosides 8.6 mg tablet (senna) 8.6 mg PO DAILY PRN 01/23/21 01/23/21 History triamcinolone acetonide 0.1 % 1 applic TOPICAL DIRECTED PRN 01/23/21 01/23/21 History topical cream Patient History Medical History (Updated 01/28/21 @ 09:14 by Velma Goyal PA-C) CAD (coronary artery disease) 2008 - LAD stent 2016 - LITTLE to mid LAD Carotid stenosis Carpal tunnel syndrome COPD (chronic obstructive pulmonary disease) Dysphagia Helicobacter pylori antibody positive Herniated disc LOWER BACK History of respiratory failure Hypertension Hyponatremia Hypothyroidism Hypoxia Laryngeal cancer S/P TRACH + PEG TUBE PLACEMENT, RADIATION Mucus plugging of bronchi PEG (percutaneous endoscopic gastrostomy) adjustment/replacement/removal Peripheral arterial disease Post-nasal drip Tracheostomy complication Tracheostomy dependent Tracheostomy in place Surgical History History of bronchoscopy History of cardiac cath [address] [facility] - 2 STENTS PLACED - FOLLOWS W/ DR. 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 History of tonsillectomy and adenoidectomy History of tracheostomy S/P percutaneous endoscopic gastrostomy (PEG) tube placement Family History Daughter Family history of reaction to anesthesia SLOW TO WAKE Father Family hx of colon cancer Other Colon cancer No pertinent family history Social History Smoking Status: Current every day smoker Tobacco Type: Cigarettes Cigarettes Per Day: 1-2; Second Hand Exposure: Yes; Tobacco Cessation Education Requested by Patient: No Hx Alcohol Use: Yes Alcohol type: beer and wine Hx Substance Use: No Preferred Language: Japanese Communication Ability: Effective Lease Broker Required: No Beliefs That Will Affect Care: None marital status: Current Living Situation: Alone Current Living Situation Comment: Pt reports family lives close/able to help current occupational status: retired Other Information That Helps Us Care for You: No Feels Safe at Home: Yes Safety Concerns: Feels Safe At This Time Assistive Devices: Oxygen - Continuous Review of Systems Review of Systems: All systems reviewed & are unremarkable except as noted in HPI & below Physical Exam Constitutional: + ill appearing (chronically), + thin, cooperative and + cushingoid; not in distress ENMT: Ears: no hearing impairment Neck: + tracheostomy present Respiratory: normal respiratory effort Auscultation: + crackles Cardiovascular: Rate/Rhythm: + tachycardic Vessels: femoral pulses present and radial pulses present; + abnormal peripheral pulses (nonpalpable BLE distal pulses) Extremities: normal capillary refill and + edema (BLE feet/lower legs) Gastrointestinal (Abdomen): Inspection/Auscultation: abdomen normal to inspection and normal bowel sounds Percussion/Palpation: abdomen soft; abdomen nontender Musculoskeletal: Extremities: strength 5/5 throughout; no cyanosis (toes with red/purple discoloration from venous engorgement) Skin: no rashes, warm and dry Neurologic: moves all extremities; no focal motor deficits and not confused Psychiatric: Orientation: alert and oriented x 3 Affect: + irritable affect Results & Data ([facility]) Vital Signs (Past 12 Hours) Vital Signs Temp Pulse Resp BP BP Pulse Ox 01/28/21 06:21 36.8 C 106 H 16 165/78 H 97 01/28/21 03:10 108 H 20 93 01/27/21 23:01 36.7 C 93 H 20 161/83 H 80/67 L 100
[2021-01-28 09:37] LABS: BUN Creatinine Ratio 45.7 (10-20); Calcium 8.5 mg/dl (8.5-10.1); Creatinine Clr Calc Pharmacy 58.7 ml/min; Est GFR (African American) 87.1 ml/min; Est GFR (Non-African American) 75.2 ml/min; Potassium 3.9 mmol/L (3.5-5.1)
[2021-01-28] MEDS ORDERED: VANCOMYCIN TROUGH ONE (15:30)
--- NOTE | 2021-01-28 15:44 | Nephrology Progress Note ---
Date of Service January 28, 2021 Assessment & Plan (1) Hyponatremia: Plan: further small improvement in acute on chronic hyponatremia, worse here in setting of low solute diet. K ok. -encourage protein shakes which do not count toward fluid limit -encourage dietary protein - consider hot dipper consult -had urea 15 gm this am and had been getting bid > now will stop that and give one time low dose lasix po -cont 1.2L FR daily -daily bmp -lasix prn only for now Admission and Anticipated Discharge Date Admission Date: January 23, 2021 Subjective seen on rounds at 1045; no interval events. CC for her is ongoing edema, pain on feet dorsi from edema; no worsening breathing. vascular saw pt today > no intervention acutely for PAD Review of Systems Review of Systems: All systems reviewed & are unremarkable except as noted in Subjective Physical Exam Constitutional: well developed, well nourished and cooperative; no acute distress Eyes: EOM intact bilaterally ENMT: Ears: no external ear abnormality Nose: no external nose abnormality Mouth: + dry oral mucous membranes Neck: + tracheostomy present; no nuchal rigidity Respiratory: normal respiratory effort Auscultation: + diminished lung sounds (elisa R base) and + crackles (BL posteriorly) Cardiovascular: Rate/Rhythm: regular rate and regular rhythm Extremities: + edema (trace pretibial RLE and dorsum R foot) Gastrointestinal (Abdomen): Inspection/Auscultation: normal bowel sounds Percussion/Palpation: abdomen soft; abdomen nontender Musculoskeletal: Extremities: strength 5/5 throughout Skin: no rashes, warm and dry Psychiatric: Orientation: alert and oriented x 3 Results & Data ([facility]) Vital Signs (Past 12 Hours) Vital Signs Temp Pulse Resp BP Pulse Ox 01/28/21 15:34 37.0 C 104 H 22 133/65 91 01/28/21 06:21 36.8 C 106 H 16 165/78 H 97 Laboratory Results 01/28/21 07:36 01/28/21 07:36
[2021-01-28] MEDS ORDERED: FUROSEMIDE 20 MG TAB PO ONE (16:00)
--- NOTE | 2021-01-28 16:00 | Pulmonology Progress Note ---
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 Patient developed progressive sputum production followed by hemoptysis. She had large amount of clotted sputum and blood and had difficulty clearing tracheostomy inner cannula. She presented to the emergency department is found to be with signs and symptoms of sepsis. She was started on broad-spectrum antibiotics. Inner cannula replaced several times as patient cleans it herself and dislodges it. She denies any fever or chills. Complaint of right-sided rib pain. CT scan s hows cavitary pneumonia and cultures are positive for MRSA Recommendations: --Necrotizing pneumonia: Currently day #7 vancomycin and Zosyn. ID consultation pending and will defer to them choices of long-term antibiotics and duration although given the necrotizing aspect of this infection and probable lung abscess, I will likely need at least 21 days of parenteral antibiotics but will defer to ID She will require a follow-up CT scan in 2 to 3 months. -- Hemoptysis -appears resolved. May be reasonable to restart Plavix at this point in time as the infection is likely treated and see how she does clinically. If the patient were to experience massive or submassive hemoptysis, consultation with interventional radiology for consideration of embolization might be appropriate. This is not a service that is available here. -- Tracheostomy dependent -trach care per respiratory therapy -- Dysphagia -per primary service. Patient noncompliant with dietary recommendations Pulmonary will sign off at this point time. Feel free to contact us if we can be of additional assistance Admission and Anticipated Discharge Date Admission Date: January 23, 2021 Subjective Patient seen and examined. EMR reviewed. She is complaining of some minimal shortness of breath with activity. Her biggest complaint is lower extremity edema. She is no longer experiencing hemoptysis. She feels that her cough is less productive. She denies any chest pain. No fevers chills or night sweats. Review of Systems Review of Systems: All systems reviewed & are unremarkable except as noted in Subjective Physical Exam Physical Exam: Constitutional: No acute distress HEENT: EOMI, PERRLA, positive trach Respiratory system: Decreased air entry bilaterally, no wheeze, rhonchi, positive crackles bilateral lower lobes CVS: S1-S2 positive, no murmurs or gallops Abdomen: Soft, nontender, nondistended, positive bowel sounds x4 Extremities: +2 pulses bilaterally radialis/ dorsalis pedis, no cyanosis, no edema Neuro: Awake alert oriented x3 Psych: Normal mood and affect G/U: No Graham Skin: no rashes, warm and dry Lymphatic: no cervical or axillary lymphadenopathy Results & Data Results & Data ([facility]) Vital Signs (Past 12 Hours) Vital Signs Temp Pulse Resp BP Pulse Ox 01/28/21 15:34 37.0 C 104 H 22 133/65 91 01/28/21 06:21 36.8 C 106 H 16 165/78 H 97 Laboratory Results 01/28/21 07:36 01/28/21 07:36 Diagnostic Findings No new imaging PG Care Time/CCT Total # of Minutes Spent Total Time Spent with Patient: Total time spent is greater than 50% in coordination of care (as documented) at patient's floor/unit and/or counseling patient: Coding Level of Care Code 50573 Subseq Hosp Care Lvl 2 Diagnoses Pneumonia J18.9 Sepsis A41.9 Dysphagia R13.10 Tracheostomy dependent Z93.0 Hemoptysis R04.2
--- NOTE | 2021-01-28 17:26 | Hospitalist Progress Note ---
Date of Service January 28, 2021 Assessment & Plan (1) Sepsis: Plan: Severe sepsis Pneumonia Possible aspiration Failed outpatient treatment H/O non compliance with speech recommendations --CTA:No evidence of pulmonary embolism. Prominent left lower lobe airspace opacity with thick rim pneumatocele likely representing a developing pulmonary abscess. Mediastinal lymphadenopathy is likely reactive. --+MRSA screen --Continue supplemental oxygen as needed Sputum culture MRSA Blood cultures negative to date Continue IV vancomycin, Zosyn Lactate levels normalized Will need Prolonged course of antibiotics Appreciate pulmonary input Hemoptysis resolved Linezolid--likely not an option given risk for serotonin syndrome while on buspirone, venlafaxine Consult ID for recommendations Leukocytosis slightly worse today Await for ID input Will need repeat CT in 2 to 3 months Hyponatremia History of hyponatremia as well Could have underlying SIADH Added Urea 15 g twice daily Continue fluid restriction Appreciate nephrology input Monitor sodium level Sodium 133 today Diuresis for lower extremity edema as per nephrology Hemoptysis secondary to above in the setting of dual antiplatelet therapy Plavix held Management as above Monitor CBC Resume Plavix as able Improved 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 Patient decannulated the inner tracheostomy tube in the ER replaced by ED Continue supplemental oxygen as needed Monitor Dysphagia VFSS in 2019 showed silent aspiration with trapping in the vallecula H/O Non compliance Speech eval Aspiration precautions H/O CAD, PVD S/P stent Troponin elevation secondary to illness DD:demand ischemia in the setting of sepsis and pneumonia ECHO showed mild hypokinesis of mid apical anterior septal No acute EKG changes Appreciate cardiology input Echo findings consistent with prior history of KS as per cards Troponin trending down Aspirin, Plavix initially held secondary to hemoptysis Continue Statin Resume aspirin 81 mg daily given extensive vascular disease as per cards Resume Plavix as able Appreciate vascular surgery input COPD Pulmonary hypertension as per records 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 use Nebs PRN 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 States having some dyspnea on exertion Persistent minimal cough Reports lower extremity edema, pain No other complaints Review of Systems Review of Systems: All systems reviewed & are unremarkable except as noted in Subjective Physical Exam Physical Exam: Physical Exam: Vitals signs as noted above General Appearance:Moderately built and nourished, no apparent distress Head: normocephalic, Atraumatic, +Trach Eyes: normal inspection, EOMI Neck: supple, Trachea midline Respiratory/Chest: Decreased coarse breath sounds, minimal basal crackles Cardiovascular: S1, S2, No murmur Abdomen/GI:Soft, Non tender, Bowel sounds present Extremities/Musculoskeletal:normal inspection, no edema Neurologic/Psych:AAOX3, grossly no focal neurological deficits Skin: normal color, warm Results & Data Results & Data ([facility]) Vital Signs (Past 12 Hours) Vital Signs Temp Pulse Resp BP Pulse Ox 01/28/21 15:34 37.0 C 104 H 22 133/65 91 01/28/21 06:21 36.8 C 106 H 16 165/78 H 97 Laboratory Results Short CBC 01/28/21 Range/Units 07:36 WBC 18.72 H (4.8-10.8) K/uL Hgb 8.0 L (12.0-16.0) g/dL Hct 25.2 L (37-47) % Plt Count 461 H (130-400) K/uL BMP 01/28/21 07:36 Sodium 133 L Potassium 3.9 Chloride 98 Carbon Dioxide 25 BUN 37 H Creatinine 0.81 Glucose 104 H Calcium 8.5
[2021-01-28] MEDS: VANCOMYCIN HCL 1,250 MG in SODIUM CHLORIDE 0.9% 250 ML IV SCH (19:52)
[2021-01-28] MEDS: MoRPHine SULFATE 2 MG/ML CARP IV PRN (20:04)
[2021-01-28] MEDS: ATORVASTATIN 20 MG TAB PO SCH (21:13)
[2021-01-29] MEDS: ALBUTEROL 0.083% NEBU SOLN 3 ML VIAL NEB PRN ×2 (02:35→18:03)
[2021-01-29] MEDS: PIPERACILLIN/TAZOBACTAM 3.375 GM in DEXTROSE 5% 100 ML IV SCH (04:03)
[2021-01-29] MEDS: HYDROCODONE/ACETAMOPHEN 5/325MG TAB PO PRN ×2 (04:07→20:20)
[2021-01-29] MEDS: LEVOTHYROXINE SODIUM 50 MCG TABLET PO SCH (05:48)
[2021-01-29] MEDS: guaiFENesin/DEXTROM SYRUP 100MG/10MG 5ML UDC PO SCH ×4 (05:48→23:19)
[2021-01-29 06:47] LABS: Hematocrit (blood only) 23.5 % (37-47); Hemoglobin 7.6 g/dL (12.0-16.0); Mean Corpuscular Hemoglobin 29.9 pg (25-34); Mean Corpuscular Hgb Conc 32.3 g/dL (32-36); Mean Corpuscular Volume 92.5 fL (80-100); Mean Platelet Volume 9.5 fL (7.4-10.4); Platelet Count 385 K/uL (130-400); RDW Coefficient of Variation 23.1 % (11.5-14.5); RDW Standard Deviation 76.4 fL (36.4-46.3); Red Blood Count 2.54 M/uL (4.2-5.4); White Blood Count 13.29 K/uL (4.8-10.8)
[2021-01-29 07:24] LABS: BUN Creatinine Ratio 37.5 (10-20); Calcium 8.5 mg/dl (8.5-10.1); Creatinine Clr Calc Pharmacy 62.6 ml/min; Est GFR (African American) 94.1 ml/min; Est GFR (Non-African American) 81.2 ml/min
[2021-01-29] MEDS: VENLAFAXINE HCL 37.5 MG TAB PO SCH ×2 (08:19→16:23)
[2021-01-29] MEDS: ASPIRIN 81 MG ECTAB PO SCH (08:19)
[2021-01-29] MEDS: FEXOFENADINE HCL 180 MG TAB PO SCH (08:19)
[2021-01-29] MEDS: busPIRone 5 MG TAB PO PRN ×2 (08:20→20:20)
[2021-01-29] MEDS: FERROUS SULFATE 325 MG TAB PO SCH ×2 (08:20→20:20)
[2021-01-29] MEDS: METOPROLOL SUCC 50MG EXT REL TAB PO SCH ×2 (08:20→21:25)
[2021-01-29] MEDS: LIDOCAINE 5% 1 PATCH TD SCH (08:21)
[2021-01-29] MEDS: SODIUM CHLORIDE 0.65% NA SOLN 45 ML (OCEAN) SCH ×2 (08:22→20:21)
[2021-01-29] MEDS: FLUTICASONE PROPIONATE NA SPR 16 GM BTL SCH (08:22)
[2021-01-29] MEDS: NEOMYCIN/POLYMYX/BACITR OINT 15 GM TUBE EXT SCH ×2 (08:23→20:20)
[2021-01-29] MEDS ORDERED: SODIUM CHLORIDE 0.9% 250 ML IV PRN (09:54)
[2021-01-29] MEDS: hydrOXYzine HCl 10 MG TAB PO PRN (15:28)
[2021-01-29] MEDS: VANCOMYCIN HCL 1,250 MG in SODIUM CHLORIDE 0.9% 250 ML IV SCH (19:50)
--- NOTE | 2021-01-29 20:09 | Hospitalist Progress Note ---
Date of Service January 29, 2021 delayed entry date of service noted above Assessment & Plan (1) Sepsis: Plan: Severe sepsis Pneumonia Possible aspiration Failed outpatient treatment H/O non compliance with speech recommendations --CTA:No evidence of pulmonary embolism. Prominent left lower lobe airspace opacity with thick rim pneumatocele likely representing a developing pulmonary abscess. Mediastinal lymphadenopathy is likely reactive. 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 Dysphagia VFSS in 2019 showed silent aspiration with trapping in the vallecula H/O Non compliance Aspiration precautions H/O CAD, PVD S/P stent Troponin elevation secondary to illness DD:demand ischemia in the setting of sepsis and pneumonia ECHO showed mild hypokinesis of mid apical anterior septal No acute EKG changes ASA continued, Plavix held COPD Pulmonary hypertension as per records 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 use Nebs PRN 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 Hypothyroidism Continue levothyroxine DVT Px: SCDs for now Code Status Full Code Admission and Anticipated Discharge Date Admission Date: January 23, 2021 Subjective ff up for PNA, etc seen resting in bed, not in distress states breathing is improving no hemoptysis no chest pain, nausea, fever/chills no other symptoms Review of Systems Review of Systems: all noted and negative except for above Physical Exam Physical Exam: General- oriented x 3, not in distress, speaks in sentences with no effort or accessory muscle use Eyes- anicteric Neck- no JVD trach- no bleeding Lungs- rhonchi on the right, clear on the left Heart- normal rate, regular rhythm; no murmurs Abdomen- normal bowel sounds, nondistended, soft, nontender Extremities- no pretibial edema, no calf tenderness Neuro- alert, oriented x 3; no gross focal neurologic deficits Skin- warm & dry Results & Data Results & Data ([facility]) Vital Signs (Past 12 Hours) Vital Signs Temp Pulse Pulse Resp BP Pulse Ox 01/29/21 18:03 106 H 20 98 01/29/21 14:17 37.3 C 100 H 20 94/66 L 100 01/29/21 14:16 37.1 C 95 H 17 91/65 L 01/29/21 13:15 37.3 C 96 H 17 101/72 100 01/29/21 12:45 91 H 17 96/67 L 01/29/21 12:32 91 H 18 90/67 L 100 01/29/21 12:30 36.7 C 88 18 165/82 H 01/29/21 12:15 37 C 88 18 130/79 01/29/21 12:11 37 C 88 18 130/79 all noted and reviewed including below
[2021-01-29] MEDS: ATORVASTATIN 20 MG TAB PO SCH (20:19)
--- NOTE | 2021-01-29 20:30 | Nephrology Progress Note ---
Date of Service January 29, 2021 Assessment & Plan (1) Hyponatremia: Plan: slightly worsened acute on chronic hyponatremia, worse here in setting of low solute diet but necrotizing PNA may also have a role. K ok. -encourage protein shakes which do not count toward fluid limit -encourage dietary protein - consider lime sludge mixer consult -had urea 15 gm this am and had been getting bid > given worsening sodium will resume urea -held lasix today -cont 1.2L FR daily -daily bmp -lasix prn only for now Admission and Anticipated Discharge Date Admission Date: January 23, 2021 Subjective no acute interval clinical events. feet/legs still hurt. breathing and secretions at baseline. no uncontrolled thirst; wondering if she will/should get pRBC today. seen on rounds at 1015 this am. Review of Systems Review of Systems: All systems reviewed & are unremarkable except as noted in Subjective Physical Exam Constitutional: well developed, well nourished and cooperative; no acute distress Eyes: EOM intact bilaterally ENMT: Ears: no external ear abnormality Nose: no external nose abnormality Mouth: + dry oral mucous membranes Neck: + tracheostomy present; no nuchal rigidity Respiratory: normal respiratory effort Auscultation: + diminished lung sounds (elisa R base) and + crackles (BL posteriorly) Cardiovascular: Rate/Rhythm: regular rate and regular rhythm Extremities: + edema (at most trace pretibial RLE and dorsum R foot) Gastrointestinal (Abdomen): Inspection/Auscultation: normal bowel sounds Percussion/Palpation: abdomen soft; abdomen nontender Musculoskeletal: Extremities: strength 5/5 throughout Skin: no rashes, warm and dry Neurologic: [place], fluent speech, no tremor Psychiatric: Orientation: alert and oriented x 3 Results & Data ([facility]) Vital Signs (Past 12 Hours) Vital Signs Temp Pulse Pulse Pulse Resp BP BP 01/29/21 20:17 104 H 163/80 H 01/29/21 18:03 106 H 20 01/29/21 14:17 37.3 C 100 H 20 94/66 L 01/29/21 14:16 37.1 C 95 H 17 91/65 L 01/29/21 13:15 37.3 C 96 H 17 101/72 01/29/21 12:45 91 H 17 96/67 L 01/29/21 12:32 91 H 18 90/67 L 01/29/21 12:30 36.7 C 88 18 165/82 H 01/29/21 12:15 37 C 88 18 130/79 01/29/21 12:11 37 C 88 18 130/79 BP Pulse Ox 01/29/21 20:17 84/55 L 01/29/21 18:03 98 01/29/21 14:17 100 01/29/21 14:16 01/29/21 13:15 100 01/29/21 12:45 01/29/21 12:32 100 01/29/21 12:30 01/29/21 12:15 01/29/21 12:11 Laboratory Results 01/29/21 06:29 01/29/21 06:29
[2021-01-29] MEDS: UREA (UREA-NA) 15 GM PACK PO SCH (21:24)
[2021-01-30] MEDS: ALBUTEROL 0.083% NEBU SOLN 3 ML VIAL NEB PRN (05:30)
[2021-01-30] MEDS: LEVOTHYROXINE SODIUM 50 MCG TABLET PO SCH (05:56)
[2021-01-30] MEDS: guaiFENesin/DEXTROM SYRUP 100MG/10MG 5ML UDC PO SCH ×3 (05:56→17:26)
[2021-01-30 07:23] LABS: Hematocrit (blood only) 32.6 % (37-47); Hemoglobin 10.5 g/dL (12.0-16.0); Mean Corpuscular Hemoglobin 30.3 pg (25-34); Mean Corpuscular Hgb Conc 32.2 g/dL (32-36); Mean Corpuscular Volume 94.2 fL (80-100); Mean Platelet Volume 9.5 fL (7.4-10.4); Platelet Count 453 K/uL (130-400); RDW Coefficient of Variation 21.3 % (11.5-14.5); RDW Standard Deviation 72.4 fL (36.4-46.3); Red Blood Count 3.46 M/uL (4.2-5.4); White Blood Count 15.62 K/uL (4.8-10.8)
[2021-01-30] MEDS: HYDROCODONE/ACETAMOPHEN 5/325MG TAB PO PRN ×3 (07:25→22:20)
[2021-01-30 07:34] LABS: Anisocytosis Present; Basophils # (auto) 0.02 K/uL (0-0.2); Basophils % (auto) 0.1 %; Eosinophils # (auto) 0.07 K/uL (0-0.5); Eosinophils % (auto) 0.4 %; Immature Granulocytes # (auto) 0.04 K/uL (0.00-0.02); Immature Granulocytes % (auto) 0.3 %; Lymphocytes # (auto) 0.68 K/uL (1.2-3.4); Lymphocytes % (auto) 4.4 %; Monocytes # (auto) 0.96 K/uL (0.11-0.59); Monocytes % (auto) 6.1 %; Neutrophils # (auto) 13.85 K/uL (1.4-6.5); Neutrophils % (auto) 88.7 %; Polychromasia 1+
[2021-01-30 07:47] LABS: Calcium 9.2 mg/dl (8.5-10.1); Creatinine Clr Calc Pharmacy 63.4 ml/min; Est GFR (African American) 95.6 ml/min; Est GFR (Non-African American) 82.5 ml/min
[2021-01-30] MEDS: ASPIRIN 81 MG ECTAB PO SCH (09:25)
[2021-01-30] MEDS: VENLAFAXINE HCL 37.5 MG TAB PO SCH ×2 (09:25→17:25)
[2021-01-30] MEDS: METOPROLOL SUCC 50MG EXT REL TAB PO SCH ×2 (09:26→20:55)
[2021-01-30] MEDS: FERROUS SULFATE 325 MG TAB PO SCH ×2 (09:26→20:55)
[2021-01-30] MEDS: FEXOFENADINE HCL 180 MG TAB PO SCH (09:26)
[2021-01-30] MEDS: FLUTICASONE PROPIONATE NA SPR 16 GM BTL SCH (09:27)
[2021-01-30] MEDS: LIDOCAINE 5% 1 PATCH TD SCH (09:27)
[2021-01-30] MEDS: SODIUM CHLORIDE 0.65% NA SOLN 45 ML (OCEAN) SCH ×2 (09:27→20:55)
[2021-01-30] MEDS: NEOMYCIN/POLYMYX/BACITR OINT 15 GM TUBE EXT SCH ×2 (09:28→20:55)
[2021-01-30] MEDS: UREA (UREA-NA) 15 GM PACK PO SCH ×2 (09:28→20:55)
--- NOTE | 2021-01-30 11:19 | Nephrology Progress Note ---
Date of Service January 30, 2021 Assessment & Plan (1) Hyponatremia: Plan: essentially stable acute on chronic hyponatremia, worse here in setting of low solute diet but necrotizing PNA may also have a role. K ok. -encourage protein shakes which do not count toward fluid limit -encourage dietary protein - consider complaint adjuster consult -continue urea 15 gm bid; she will be unable to get this as OP so do not d/c on it -ok to use low dose lasix prn edema> 10 or 20 mg IV while in house but would minimize -cont 1.2L FR daily -daily bmp -recommend bmp w/in one week of d/c at PCP office; refer back to nephro as OP if sNa continues too low WILL SIGN OFF; pls call if ? (2) Leg pain, right: Plan: consider ruling out DVT if not already done given pain, edema Admission and Anticipated Discharge Date Admission Date: January 23, 2021 Subjective c/o ongoing R foot swelling pain; no worse sob; ongoign marked thick resp secretions; got PICC today Review of Systems Review of Systems: All systems reviewed & are unremarkable except as noted in Subjective Physical Exam Constitutional: well developed, well nourished and cooperative; no acute distress Eyes: EOM intact bilaterally ENMT: Ears: no external ear abnormality Nose: no external nose abnormality Mouth: + dry oral mucous membranes Neck: + tracheostomy present; no nuchal rigidity Respiratory: normal respiratory effort Auscultation: + diminished lung sounds (elisa R base) and + crackles (BL posteriorly) Cardiovascular: Rate/Rhythm: regular rate and regular rhythm Extremities: + edema (1+ RLE and dorsum R foot) Gastrointestinal (Abdomen): Inspection/Auscultation: normal bowel sounds Percussion/Palpation: abdomen soft; abdomen nontender Musculoskeletal: Extremities: strength 5/5 throughout Skin: no rashes, warm and dry Neurologic: [place], fluent speech, no tremor Psychiatric: Orientation: alert and oriented x 3 Results & Data ([facility]) Vital Signs (Past 12 Hours) Vital Signs Temp Pulse Pulse Resp BP Pulse Ox 01/30/21 07:42 36.7 C 103 H 22 170/90 H 91 01/30/21 05:35 94 H 20 92 Laboratory Results 01/30/21 07:04 01/30/21 07:04
--- NOTE | 2021-01-30 16:35 | Ultrasound Report ---
RIGHT LOWER EXTREMITY VENOUS DOPPLER CLINICAL HISTORY: Right lower extremity edema. Evaluate for deep venous thrombus. COMPARISON STUDY: No previous studies for comparison. TECHNIQUE: Sonography of the deep venous system of the right lower extremity was performed. Compress ion and augmentation were evaluated. FINDINGS: The right common femoral, superficial femoral and popliteal veins were compressible. Augme ntation was normal. Flow was shown within the deep calf vessels. IMPRESSION: No evidence of deep venous thrombus within the right lower extremity. ACT 112: Negative or not required by law. Electronically signed by: Ren Castanon M.D. 01/30/2021 4:33 PM
--- NOTE | 2021-01-30 19:58 | Hospitalist Progress Note ---
Date of Service January 30, 2021 delayed entry date of service noted above Assessment & Plan (1) Sepsis: Plan: Severe sepsis Pneumonia Possible aspiration Failed outpatient treatment H/O non compliance with speech recommendations --CTA:No evidence of pulmonary embolism. Prominent left lower lobe airspace opacity with thick rim pneumatocele likely representing a developing pulmonary abscess. Mediastinal lymphadenopathy is likely reactive. 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 Patient decannulated the inner tracheostomy tube in the ER replaced by ED Continue supplemental oxygen as needed Monitor Dysphagia VFSS in 2019 showed silent aspiration with trapping in the vallecula H/O Non compliance Speech eval Aspiration precautions H/O CAD, PVD S/P stent Troponin elevation secondary to illness DD:demand ischemia in the setting of sepsis and pneumonia ECHO showed mild hypokinesis of mid apical anterior septal No acute EKG changes Appreciate cardiology input Echo findings consistent with prior history of KS as per cards Troponin trending down hold Plavix COPD Pulmonary hypertension as per records 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 use Nebs PRN 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 Hypothyroidism Continue levothyroxine DVT Px: SCDs for now Code Status Full Code Admission and Anticipated Discharge Date Admission Date: January 23, 2021 Subjective ff up for pneumonia, etc seen resting in bed,comfortable not in distress states she feels ok overall somewhat better after blood transfusion breathing, cough improving no other symptoms Review of Systems Review of Systems: all noted and negative except for above Physical Exam Physical Exam: General- oriented x 3, not in distress, speaks in sentences with no effort or accessory muscle use Eyes- anicteric Neck- no JVD trach- no bleeding, signs of infection Lungs- rhonchi on the right clear on the left no wheezing Heart- normal rate, regular rhythm; no murmurs Abdomen- normal bowel sounds, nondistended, soft, nontender Extremities- no pretibial edema, no calf tenderness R lower leg edema Neuro- alert, oriented x 3; no gross focal neurologic deficits Skin- warm & dry Results & Data Results & Data ([facility]) Vital Signs (Past 12 Hours) Vital Signs Temp Pulse Resp BP Pulse Ox 01/30/21 16:58 37.0 C 96 H 22 156/76 H 97
[2021-01-30] MEDS: VANCOMYCIN HCL 1,250 MG in SODIUM CHLORIDE 0.9% 250 ML IV SCH (20:50)
[2021-01-30] MEDS: ATORVASTATIN 20 MG TAB PO SCH (20:55)
[2021-01-31] MEDS: guaiFENesin/DEXTROM SYRUP 100MG/10MG 5ML UDC PO SCH ×5 (00:16→23:31)
[2021-01-31] MEDS: ALBUTEROL 0.083% NEBU SOLN 3 ML VIAL NEB PRN ×3 (04:42→23:00)
[2021-01-31] MEDS: LEVOTHYROXINE SODIUM 50 MCG TABLET PO SCH (05:15)
[2021-01-31 06:06] LABS: Basophils # (auto) 0.03 K/uL (0-0.2); Basophils % (auto) 0.2 %; Eosinophils # (auto) 0.11 K/uL (0-0.5); Eosinophils % (auto) 0.9 %; Hematocrit (blood only) 31.8 % (37-47); Hemoglobin 10.1 g/dL (12.0-16.0); Immature Granulocytes # (auto) 0.06 K/uL (0.00-0.02); Immature Granulocytes % (auto) 0.5 %; Lymphocytes # (auto) 1.23 K/uL (1.2-3.4); Lymphocytes % (auto) 9.5 %; Mean Corpuscular Hemoglobin 30.1 pg (25-34); Mean Corpuscular Hgb Conc 31.8 g/dL (32-36); Mean Corpuscular Volume 94.9 fL (80-100); Mean Platelet Volume 9.8 fL (7.4-10.4); Monocytes # (auto) 0.91 K/uL (0.11-0.59); Monocytes % (auto) 7.1 %; Neutrophils # (auto) 10.56 K/uL (1.4-6.5); Neutrophils % (auto) 81.8 %; Platelet Count 447 K/uL (130-400); RDW Coefficient of Variation 21.3 % (11.5-14.5); Red Blood Count 3.35 M/uL (4.2-5.4)
[2021-01-31 06:46] LABS: BUN Creatinine Ratio 37.6 (10-20); Est GFR (African American) 102.2 ml/min; Est GFR (Non-African American) 88.1 ml/min
[2021-01-31 06:48] LABS: Anisocytosis Present
[2021-01-31] MEDS: ASPIRIN 81 MG ECTAB PO SCH (07:39)
[2021-01-31] MEDS: FEXOFENADINE HCL 180 MG TAB PO SCH (07:39)
[2021-01-31] MEDS: FERROUS SULFATE 325 MG TAB PO SCH ×2 (07:39→20:56)
[2021-01-31] MEDS: UREA (UREA-NA) 15 GM PACK PO SCH ×2 (07:40→19:32)
[2021-01-31] MEDS: VENLAFAXINE HCL 37.5 MG TAB PO SCH ×2 (07:40→18:23)
[2021-01-31] MEDS: FLUTICASONE PROPIONATE NA SPR 16 GM BTL SCH (07:40)
[2021-01-31] MEDS: LIDOCAINE 5% 1 PATCH TD SCH (07:40)
[2021-01-31] MEDS: METOPROLOL SUCC 50MG EXT REL TAB PO SCH ×2 (07:40→20:56)
[2021-01-31] MEDS: SODIUM CHLORIDE 0.65% NA SOLN 45 ML (OCEAN) SCH ×2 (07:41→20:56)
[2021-01-31] MEDS: NEOMYCIN/POLYMYX/BACITR OINT 15 GM TUBE EXT SCH ×2 (07:41→20:56)
[2021-01-31] MEDS: HYDROCODONE/ACETAMOPHEN 5/325MG TAB PO PRN ×2 (07:45→23:30)
[2021-01-31] MEDS: busPIRone 5 MG TAB PO PRN ×2 (15:20→22:43)
[2021-01-31] MEDS ORDERED: VANCOMYCIN TROUGH ONE (19:30)
[2021-01-31] MEDS ORDERED: FUROSEMIDE 20 MG TAB PO ONE (20:08)
--- NOTE | 2021-01-31 20:10 | Hospitalist Progress Note ---
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 Patient decannulated the inner tracheostomy tube in the ER replaced by ED Continue supplemental oxygen as needed Monitor Dysphagia VFSS in 2019 showed silent aspiration with trapping in the vallecula H/O Non compliance Speech eval Aspiration precautions H/O CAD, PVD S/P stent Troponin elevation secondary to illness DD:demand ischemia in the setting of sepsis and pneumonia ECHO showed mild hypokinesis of mid apical anterior septal No acute EKG changes -- hold Plavix continue ASA COPD Pulmonary hypertension as per records 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 use Nebs PRN 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 abuse 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 Hypothyroidism Continue levothyroxine DVT Px: SCDs for now Code Status Full Code Admission and Anticipated Discharge Date Admission Date: January 23, 2021 Subjective ff up for pneumonia, anemia, etc seen resting in bed, sitting up, comfortable states she feels ok overall no chest pain, dyspnea, palpitations, dizziness no bleeding per trach no melena/hematochezia no other symptoms Review of Systems Review of Systems: all noted and negative except for above Physical Exam Physical Exam: General- oriented x 3, not in distress, speaks in sentences w ith no effort or accessory muscle use Eyes- anicteric Neck- no JVD Lungs- mild rhonchi on the right clear on the left Heart- normal rate, regular rhythm; no murmurs Abdomen- normal bowel sounds, nondistended, soft, nontender Extremities- mild BL lower extremity edema, no calf tenderness Neuro- alert, oriented x 3; no gross focal neurologic deficits Skin- warm & dry Results & Data Results & Data ([facility]) Vital Signs (Past 12 Hours) Vital Signs Temp Pulse Resp BP Pulse Ox 01/31/21 16:38 36.6 C 99 H 18 183/82 H 97 all noted and reviewed including below
[2021-01-31] MEDS: VANCOMYCIN HCL 1,250 MG in SODIUM CHLORIDE 0.9% 250 ML IV SCH (20:30)
[2021-01-31] MEDS: ATORVASTATIN 20 MG TAB PO SCH (20:56)
[2021-01-31] MEDS: hydrOXYzine HCl 10 MG TAB PO PRN (23:29)
[2021-02-01] MEDS: LEVOTHYROXINE SODIUM 50 MCG TABLET PO SCH (06:07)
[2021-02-01] MEDS: guaiFENesin/DEXTROM SYRUP 100MG/10MG 5ML UDC PO SCH ×3 (06:07→17:26)
[2021-02-01 06:11] LABS: Basophils # (auto) 0.01 K/uL (0-0.2); Basophils % (auto) 0.1 %; Eosinophils # (auto) 0.01 K/uL (0-0.5); Eosinophils % (auto) 0.1 %; Hematocrit (blood only) 28.5 % (37-47); Hemoglobin 8.9 g/dL (12.0-16.0); Immature Granulocytes # (auto) 0.02 K/uL (0.00-0.02); Immature Granulocytes % (auto) 0.2 %; Lymphocytes # (auto) 0.75 K/uL (1.2-3.4); Lymphocytes % (auto) 6.9 %; Mean Corpuscular Hemoglobin 29.9 pg (25-34); Mean Corpuscular Hgb Conc 31.2 g/dL (32-36); Mean Corpuscular Volume 95.6 fL (80-100); Mean Platelet Volume 9.5 fL (7.4-10.4); Monocytes % (auto) 6.5 %; Neutrophils # (auto) 9.34 K/uL (1.4-6.5); Neutrophils % (auto) 86.2 %; Platelet Count 380 K/uL (130-400); RDW Standard Deviation 73.3 fL (36.4-46.3); Red Blood Count 2.98 M/uL (4.2-5.4); White Blood Count 10.83 K/uL (4.8-10.8)
[2021-02-01 06:39] LABS: BUN Creatinine Ratio 38.7 (10-20); Calcium 8.3 mg/dl (8.5-10.1); Creatinine Clr Calc Pharmacy 88.1 ml/min; Est GFR (African American) 113.2 ml/min; Est GFR (Non-African American) 97.6 ml/min
[2021-02-01] MEDS: FERROUS SULFATE 325 MG TAB PO SCH ×2 (07:34→20:40)
[2021-02-01] MEDS: METOPROLOL SUCC 50MG EXT REL TAB PO SCH ×2 (07:34→20:41)
[2021-02-01] MEDS: SODIUM CHLORIDE 0.65% NA SOLN 45 ML (OCEAN) SCH ×2 (07:35→20:42)
[2021-02-01] MEDS: UREA (UREA-NA) 15 GM PACK PO SCH ×2 (07:35→20:42)
[2021-02-01] MEDS: LIDOCAINE 5% 1 PATCH TD SCH (07:36)
[2021-02-01] MEDS: FLUTICASONE PROPIONATE NA SPR 16 GM BTL SCH (07:36)
[2021-02-01] MEDS: NEOMYCIN/POLYMYX/BACITR OINT 15 GM TUBE EXT SCH ×2 (07:36→20:38)
[2021-02-01] MEDS: ASPIRIN 81 MG ECTAB PO SCH (07:47)
[2021-02-01] MEDS: HYDROCODONE/ACETAMOPHEN 5/325MG TAB PO PRN ×3 (07:47→20:54)
[2021-02-01] MEDS: VENLAFAXINE HCL 37.5 MG TAB PO SCH ×2 (07:47→17:41)
[2021-02-01] MEDS: FEXOFENADINE HCL 180 MG TAB PO SCH (07:47)
[2021-02-01] MEDS: hydrALAZINE HCL 20 MG/ML VIAL IV PRN ×2 (09:17→17:42)
[2021-02-01] MEDS: hydrOXYzine HCl 10 MG TAB PO PRN ×2 (09:17→17:42)
[2021-02-01] MEDS: busPIRone 5 MG TAB PO PRN ×2 (09:18→20:49)
[2021-02-01] MEDS: FUROSEMIDE 20 MG TAB PO SCH (10:59)
[2021-02-01] MEDS: hydrALAZINE HCL 25 MG TAB PO SCH ×2 (10:59→20:41)
--- NOTE | 2021-02-01 18:19 | Hospitalist Progress Note ---
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 Patient decannulated the inner tracheostomy tube in the ER replaced by ED Continue supplemental oxygen as needed Monitor Dysphagia VFSS in 2019 showed silent aspiration with trapping in the vallecula H/O Non compliance Speech eval Aspiration precautions H/O CAD, PVD S/P stent Troponin elevation secondary to illness DD:demand ischemia in the setting of sepsis and pneumonia ECHO showed mild hypokinesis of mid apical anterior septal No acute EKG changes -- hold Plavix continue ASA COPD Pulmonary hypertension as per records 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 use Nebs PRN 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 abuse 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 Hypothyroidism Continue levothyroxine DVT Px: SCDs for now Code Status Full Code Admission and Anticipated Discharge Date Admission Date: January 23, 2021 Subjective ff up for pneumonia, etc seen resting in bed, not in distress patient states she feels fair emotional today, occasionally tearful due to her overall health condition reassured breathing is fine, less cough, no hemoptysis no chest pain, dyspnea, palpitations, dizziness no other symptoms Review of Systems Review of Systems: all noted and negative except for above Physical Exam Physical Exam: General- oriented x 3, not in distress, speaks in sentences with no effort or accessory muscle use Eyes- anicteric Neck- no JVD trach: no bleeding, discharge Lungs- mild rhonchi on the right clear on the left Heart- normal rate, regular rhythm; no murmurs Abdomen- normal bowel sounds, nondistended, soft, nontender Extremities-(+) lower leg edema, no calf tenderness, erythema, warmth Neuro- alert, oriented x 3; no gross focal neurologic deficits Skin- warm & dry Results & Data Results & Data ([facility]) Vital Signs (Past 12 Hours) Vital Signs Temp Pulse Resp BP Pulse Ox 02/01/21 16:56 36.7 C 91 H 16 164/77 H 100 02/01/21 10:58 169/71 H 02/01/21 09:13 192/84 H 02/01/21 07:04 36.6 C 96 H 18 188/81 H 90 all noted and reviewed including below
[2021-02-01] MEDS: VANCOMYCIN HCL 1,250 MG in SODIUM CHLORIDE 0.9% 250 ML IV SCH (20:35)
[2021-02-01] MEDS: ATORVASTATIN 20 MG TAB PO SCH (20:40)
[2021-02-02] MEDS: guaiFENesin/DEXTROM SYRUP 100MG/10MG 5ML UDC PO SCH ×6 (01:41→22:23)
[2021-02-02] MEDS: hydrOXYzine HCl 10 MG TAB PO PRN ×3 (02:33→20:55)
[2021-02-02] MEDS: FLUTICASONE PROPIONATE NA SPR 16 GM BTL SCH (02:37)
[2021-02-02 06:20] LABS: Basophils # (auto) 0.02 K/uL (0-0.2); Basophils % (auto) 0.2 %; Eosinophils # (auto) 0.11 K/uL (0-0.5); Hematocrit (blood only) 31.1 % (37-47); Hemoglobin 9.8 g/dL (12.0-16.0); Immature Granulocytes # (auto) 0.01 K/uL (0.00-0.02); Immature Granulocytes % (auto) 0.1 %; Lymphocytes # (auto) 0.62 K/uL (1.2-3.4); Lymphocytes % (auto) 5.9 %; Mean Corpuscular Hemoglobin 30.2 pg (25-34); Mean Corpuscular Hgb Conc 31.5 g/dL (32-36); Mean Corpuscular Volume 95.7 fL (80-100); Mean Platelet Volume 9.7 fL (7.4-10.4); Monocytes # (auto) 0.87 K/uL (0.11-0.59); Monocytes % (auto) 8.2 %; Neutrophils # (auto) 8.92 K/uL (1.4-6.5); Neutrophils % (auto) 84.6 %; Platelet Count 445 K/uL (130-400); RDW Coefficient of Variation 20.9 % (11.5-14.5); RDW Standard Deviation 73.5 fL (36.4-46.3); Red Blood Count 3.25 M/uL (4.2-5.4); White Blood Count 10.55 K/uL (4.8-10.8)
[2021-02-02] MEDS: LEVOTHYROXINE SODIUM 50 MCG TABLET PO SCH (06:21)
[2021-02-02] MEDS: busPIRone 5 MG TAB PO PRN ×2 (06:22→20:55)
[2021-02-02 06:55] LABS: BUN Creatinine Ratio 26.7 (10-20); Calcium 8.5 mg/dl (8.5-10.1); Creatinine Clr Calc Pharmacy 82.7 ml/min; Est GFR (African American) 110.5 ml/min; Est GFR (Non-African American) 95.4 ml/min; Potassium 3.6 mmol/L (3.5-5.1)
[2021-02-02 06:58] LABS: Rouleaux 1+
[2021-02-02] MEDS: hydrALAZINE HCL 20 MG/ML VIAL IV PRN ×2 (07:44→17:42)
[2021-02-02] MEDS: LIDOCAINE 5% 1 PATCH TD SCH (07:44)
[2021-02-02] MEDS: FUROSEMIDE 20 MG TAB PO SCH (07:44)
[2021-02-02] MEDS: ASPIRIN 81 MG ECTAB PO SCH (07:44)
[2021-02-02] MEDS: FEXOFENADINE HCL 180 MG TAB PO SCH (07:44)
[2021-02-02] MEDS: FERROUS SULFATE 325 MG TAB PO SCH ×2 (07:44→20:49)
[2021-02-02] MEDS: METOPROLOL SUCC 50MG EXT REL TAB PO SCH ×2 (07:44→20:50)
[2021-02-02] MEDS: VENLAFAXINE HCL 37.5 MG TAB PO SCH ×2 (07:44→17:42)
[2021-02-02] MEDS: hydrALAZINE HCL 25 MG TAB PO SCH ×2 (07:44→20:50)
[2021-02-02] MEDS: NEOMYCIN/POLYMYX/BACITR OINT 15 GM TUBE EXT SCH ×2 (07:45→20:50)
[2021-02-02] MEDS: UREA (UREA-NA) 15 GM PACK PO SCH ×2 (07:45→20:50)
[2021-02-02] MEDS: SODIUM CHLORIDE 0.65% NA SOLN 45 ML (OCEAN) SCH ×2 (07:45→20:50)
[2021-02-02] MEDS: HYDROCODONE/ACETAMOPHEN 5/325MG TAB PO PRN ×2 (07:53→17:42)
--- NOTE | 2021-02-02 12:19 | Hospitalist Progress Note ---
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 Patient decannulated the inner tracheostomy tube in the ER replaced by ED Continue supplemental oxygen as needed Monitor Dysphagia VFSS in 2019 showed silent aspiration with trapping in the vallecula H/O Non compliance Speech eval Aspiration precautions H/O CAD, PVD S/P stent Troponin elevation secondary to illness DD:demand ischemia in the setting of sepsis and pneumonia ECHO showed mild hypokinesis of mid apical anterior septal No acute EKG changes -- hold Plavix continue ASA Hypertension Hydralazine 25 mg twice daily ordered Likely secondary to volume overload and anxiety Lasix IV ordered Ativan 1.5 mg 3 times daily as needed ordered Monitor closely COPD Pulmonary hypertension as per records 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 use Nebs PRN 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 Seen sleeping in bed but easily awakened States she feels okay overall No shortness of breath Discharge from trach now light-colored to clear No chest pain, palpitation, dizziness No other symptoms Review of Systems Review of Systems: all noted and negative except for above Physical Exam Physical Exam: General- oriented x 3, not in distress, speaks in sentences with no effort or accessory muscle use Eyes- anicteric Neck- no JVD Trach-no bleeding or discharge Lungs-mild rhonchi on the right, clear on the left No other symptoms Heart- normal rate, regular rhythm; no murmurs Abdomen- normal bowel sounds, nondistended, soft, nontender Extremities- no pretibial edema, no calf tenderness Neuro- alert, oriented x 3; no gross focal neurologic deficits Skin- warm & dry Results & Data Results & Data ([facility]) Vital Signs (Past 12 Hours) Vital Signs Temp Pulse Resp BP BP Pulse Ox 02/02/21 08:25 159/76 H 02/02/21 07:40 93 02/02/21 07:25 36.7 C 86 20 209/107 H 86 L all noted and reviewed including below
[2021-02-02] MEDS ORDERED: FUROSEMIDE 40 MG/4 ML VIAL IV ONE (16:51)
[2021-02-02] MEDS: ATORVASTATIN 20 MG TAB PO SCH (20:49)
[2021-02-02] MEDS: LORazepam 0.5 MG TAB PO PRN (20:59)
[2021-02-02] MEDS: VANCOMYCIN HCL 1,250 MG in SODIUM CHLORIDE 0.9% 250 ML IV SCH (21:02)
[2021-02-03] MEDS: LORazepam 0.5 MG TAB PO PRN ×2 (03:12→21:05)
[2021-02-03] MEDS: hydrOXYzine HCl 10 MG TAB PO PRN (03:12)
[2021-02-03] MEDS: FLUTICASONE PROPIONATE NA SPR 16 GM BTL SCH (03:35)
[2021-02-03] MEDS: LEVOTHYROXINE SODIUM 50 MCG TABLET PO SCH (06:11)
[2021-02-03] MEDS: guaiFENesin/DEXTROM SYRUP 100MG/10MG 5ML UDC PO SCH ×4 (06:11→22:59)
[2021-02-03] MEDS: METOPROLOL SUCC 50MG EXT REL TAB PO SCH ×3 (07:39→21:01)
[2021-02-03] MEDS: VENLAFAXINE HCL 37.5 MG TAB PO SCH ×2 (07:46→18:00)
[2021-02-03] MEDS: FERROUS SULFATE 325 MG TAB PO SCH ×2 (07:46→21:00)
[2021-02-03] MEDS: ASPIRIN 81 MG ECTAB PO SCH (07:46)
[2021-02-03] MEDS: FEXOFENADINE HCL 180 MG TAB PO SCH (07:46)
[2021-02-03] MEDS: hydrALAZINE HCL 25 MG TAB PO SCH ×4 (07:47→21:01)
[2021-02-03] MEDS: FUROSEMIDE 20 MG TAB PO SCH ×2 (07:47→08:32)
[2021-02-03] MEDS: UREA (UREA-NA) 15 GM PACK PO SCH ×2 (07:48→21:02)
[2021-02-03] MEDS: LIDOCAINE 5% 1 PATCH TD SCH (07:48)
[2021-02-03] MEDS: SODIUM CHLORIDE 0.65% NA SOLN 45 ML (OCEAN) SCH ×2 (07:49→21:02)
[2021-02-03] MEDS: NEOMYCIN/POLYMYX/BACITR OINT 15 GM TUBE EXT SCH ×2 (07:49→21:02)
[2021-02-03 08:16] LABS: Basophils # (auto) 0.02 K/uL (0-0.2); Basophils % (auto) 0.2 %; Eosinophils # (auto) 0.05 K/uL (0-0.5); Eosinophils % (auto) 0.5 %; Hematocrit (blood only) 31.6 % (37-47); Hemoglobin 10.1 g/dL (12.0-16.0); Immature Granulocytes # (auto) 0.02 K/uL (0.00-0.02); Immature Granulocytes % (auto) 0.2 %; Mean Corpuscular Hemoglobin 30.1 pg (25-34); Mean Corpuscular Volume 94.3 fL (80-100); Mean Platelet Volume 9.4 fL (7.4-10.4); Monocytes # (auto) 0.61 K/uL (0.11-0.59); Monocytes % (auto) 6.1 %; Neutrophils # (auto) 8.41 K/uL (1.4-6.5); Platelet Count 444 K/uL (130-400); RDW Coefficient of Variation 20.6 % (11.5-14.5); RDW Standard Deviation 70.6 fL (36.4-46.3); Red Blood Count 3.35 M/uL (4.2-5.4); White Blood Count 10.01 K/uL (4.8-10.8)
[2021-02-03 09:01] LABS: BUN Creatinine Ratio 13.8 (10-20); Calcium 8.4 mg/dl (8.5-10.1); Est GFR (African American) 95.6 ml/min; Est GFR (Non-African American) 82.5 ml/min; Potassium 3.5 mmol/L (3.5-5.1)
[2021-02-03 09:05] LABS: Anisocytosis Present
[2021-02-03] MEDS ORDERED: FUROSEMIDE 40 MG/4 ML VIAL IV ONE ×2 (10:47→14:14)
[2021-02-03] MEDS ORDERED: FUROSEMIDE INJ 20 MG/2 ML VIAL IV ONE ×3 (14:13→20:46)
[2021-02-03] MEDS ORDERED: amLODIPine BESYLATE 5 MG TAB PO ONE (19:05)
--- NOTE | 2021-02-03 19:05 | Hospitalist Progress Note ---
Date of Service February 03, 2021 Assessment & Plan (1) Sepsis: Plan: Severe sepsis Pneumonia Possible aspiration -- respiratory status stable will need 3 weeks IV Yoel shoe caser on Board -- remains stable Hypertension Hydralazine increased to 3 times daily Amlodipine 5 mg added Lasix 40 mg IV in the morning ordered Lasix 20 mg IV at p.m. 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 Patient decannulated the inner tracheostomy tube in the ER replaced by ED Continue supplemental oxygen as needed Monitor Dysphagia VFSS in 2019 showed silent aspiration with trapping in the vallecula H/O Non compliance Speech eval Aspiration precautions H/O CAD, PVD S/P stent Troponin elevation secondary to illness DD:demand ischemia in the setting of sepsis and pneumonia ECHO showed mild hypokinesis of mid apical anterior septal No acute EKG changes -- hold Plavix continue ASA COPD Pulmonary hypertension as per records 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 use Nebs PRN 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 Seen resting in bed, comfortable, not in distress States she feels okay overall No bleeding per trach, no shortness of breath Anxiety is better no chest pain, dyspnea, palpitations, dizziness No other symptoms Review of Systems Review of Systems: all noted and negative except for above Physical Exam Physical Exam: General- oriented x 3, not in distress, speaks in sentences with no effort or accessory muscle use Eyes- anicteric Neck- no JVD Trach-no bleeding Lungs-mild rhonchi right lung, clear on the left No wheezing Heart- normal rate, regular rhythm; no murmurs Abdomen- normal bowel sounds, nondistended, soft, nontender Extremities-grade 1 lower leg edema, no calf tenderness Neuro- alert, oriented x 3; no gross focal neurologic deficits Skin- warm & dry Results & Data Results & Data ([facility]) Vital Signs (Past 12 Hours) Vital Signs Temp Pulse Pulse Resp BP BP Pulse Ox 02/03/21 15:41 36.5 C 84 17 178/79 H 98 02/03/21 07:30 175/95 H 02/03/21 07:29 36.5 C 97 H 16 90/60 L 92 all noted and reviewed including below
[2021-02-03] MEDS ORDERED: VANCOMYCIN TROUGH ONE (19:30)
[2021-02-03] MEDS: HYDROCODONE/ACETAMOPHEN 5/325MG TAB PO PRN (20:59)
[2021-02-03] MEDS: VANCOMYCIN HCL 1,250 MG in SODIUM CHLORIDE 0.9% 250 ML IV SCH (20:59)
[2021-02-03] MEDS: busPIRone 5 MG TAB PO PRN (21:00)
[2021-02-03] MEDS: ATORVASTATIN 20 MG TAB PO SCH (21:00)
[2021-02-03] MEDS ORDERED: SODIUM CHLORIDE 0.65% NA SOLN 45 ML (OCEAN) PRN (21:13)
[2021-02-03] MEDS: hydrALAZINE HCL 20 MG/ML VIAL IV PRN (22:53)
[2021-02-04] MEDS: guaiFENesin/DEXTROM SYRUP 100MG/10MG 5ML UDC PO SCH ×3 (05:57→17:43)
[2021-02-04] MEDS: LEVOTHYROXINE SODIUM 50 MCG TABLET PO SCH (05:57)
[2021-02-04 06:02] LABS: BUN Creatinine Ratio 12.7 (10-20); Calcium 8.3 mg/dl (8.5-10.1); Creatinine Clr Calc Pharmacy 72.7 ml/min; Est GFR (African American) 105.9 ml/min; Est GFR (Non-African American) 91.4 ml/min; Potassium 3.2 mmol/L (3.5-5.1)
[2021-02-04] MEDS: METOPROLOL SUCC 50MG EXT REL TAB PO SCH ×2 (10:11→20:46)
[2021-02-04] MEDS: hydrALAZINE HCL 25 MG TAB PO SCH ×3 (10:11→20:36)
[2021-02-04] MEDS: LIDOCAINE 5% 1 PATCH TD SCH ×2 (10:11→10:29)
[2021-02-04] MEDS: UREA (UREA-NA) 15 GM PACK PO SCH ×3 (10:11→20:37)
[2021-02-04] MEDS: FERROUS SULFATE 325 MG TAB PO SCH ×2 (10:12→20:46)
[2021-02-04] MEDS: VENLAFAXINE HCL 37.5 MG TAB PO SCH ×2 (10:12→20:30)
[2021-02-04] MEDS: ASPIRIN 81 MG ECTAB PO SCH (10:12)
[2021-02-04] MEDS: FUROSEMIDE 20 MG TAB PO SCH (10:12)
[2021-02-04] MEDS: FEXOFENADINE HCL 180 MG TAB PO SCH (10:12)
[2021-02-04] MEDS: FLUTICASONE PROPIONATE NA SPR 16 GM BTL SCH (10:18)
[2021-02-04] MEDS: SODIUM CHLORIDE 0.65% NA SOLN 45 ML (OCEAN) SCH ×2 (10:22→20:51)
[2021-02-04] MEDS: NEOMYCIN/POLYMYX/BACITR OINT 15 GM TUBE EXT SCH ×2 (10:22→20:51)
[2021-02-04] MEDS: POTASSIUM CHLORIDE CRTAB 20 MEQ TABCR PO SCH ×2 (10:27→20:46)
[2021-02-04] MEDS ORDERED: FUROSEMIDE 40 MG/4 ML VIAL IV ONE (11:25)
[2021-02-04] MEDS: amLODIPine BESYLATE 5 MG TAB PO SCH (12:35)
[2021-02-04] MEDS: HYDROCODONE/ACETAMOPHEN 5/325MG TAB PO PRN ×2 (13:06→20:46)
[2021-02-04] MEDS: busPIRone 5 MG TAB PO PRN (13:07)
--- NOTE | 2021-02-04 13:19 | CT Scan Report ---
CT SCAN OF THE NECK WITHOUT IV CONTRAST CLINICAL HISTORY: Right submandibular/neck mass. History of laryngeal carcinoma. COMPARISON STUDY: CT of the neck dated 06/25/2017. TECHNIQUE: Unenhanced CT scan of the soft tissues of the neck was performed from the skull base to th e upper chest. Images are reviewed in the axial, sagittal, and coronal planes. IV contrast was not a dministered for this examination. Note that the examination was performed in significantly suboptimal fashion without IV contrast. A dose lowering technique was utilized adhering to the principles of A MAR. CT DOSE: 345.29 mGycm FINDINGS: Pharynx: There is diffuse infiltration and soft tissue thickening seen throughout the laryngopharynx. There is complete occlusion of the airway at/above the level of the thyroid cartilage. No obvious ma ss lesion is identified. There is layering fluid within the lingular pharynx. Chronic appearing destr uctive change is noted in the thyroid cartilage. The epiglottis is grossly unremarkable. The paraphar yngeal fat appears maintained. The vocal cords are not well evaluated. The prevertebral/retropharynge al soft tissues are within normal limits. The patient is edentulous. Soft tissues: There is advanced atherosclerotic calcification of the carotid arteries. Lymphadenopathy: No cervical lymphadenopathy is seen Thyroid: Normal in size and heterogeneous in attenuation. Salivary glands: The salivary glands are atrophic and grossly unremarkable. Brain parenchyma: The visualized brain parenchyma at the skull base is normal in appearance noting ag e-related involutional change. Skeletal structures: The skeletal structures are osteopenic. Imaged portions of the calvarium at the skull base are within normal limits. The cervical spine appears intact noting mild multilevel cervica l spondylosis. No lytic or blastic lesion is seen. Orbits: The bony orbits are intact. Orbital contents are normal as visualized noting bilateral ocular lens implants. Sinuses and mastoids: A 9 mm retention cyst is noted in the right sphenoid sinus. The paranasal sinus es are otherwise clear. The mastoid air cells are well pneumatized. Lung apices: A tracheostomy is in place. Advanced emphysematous change is noted. There is a layering left pleural effusion with associated atelectasis. The visualized right upper lobe lung parenchyma ap pears clear. IMPRESSION: 1. Significantly suboptimal examination without IV contrast. 2. There is diffuse soft tissue thickening and infiltration seen throughout the laryngopharynx, with complete occlusion of the airway above the level of the thyroid cartilage and a tracheostomy in place . These findings are likely related to the reported history of a laryngeal carcinoma as well as treat ment related change. The presence of residual tumor would be impossible to exclude. 3. No obvious mass lesion is identified. No cervical lymphadenopathy is seen. 4. Advanced emphysema. 5. Layering left pleural effusion. ACT 112: Negative or not required by law. Electronically signed by: Anurag Harris M.D. 02/04/2021 1:17 PM
--- NOTE | 2021-02-04 18:24 | Hospitalist Progress Note ---
Date of Service February 04, 2021 Assessment & Plan (1) Sepsis: Plan: Severe sepsis Pneumonia Possible aspiration -- respiratory status stable will need 3 weeks IV Yoel case worker on Board -- remains stable Hypertension Hydralazine increased to 3 times daily Amlodipine 5 mg added Ativan 1.5 mg 3 times daily as needed ordered Monitor closely BP improving, monitor BL Leg edema Doppler US ordered on the R leg no DVT Lasix IV given daily improving monitor Hyponatremia History of hyponatremia as well Could have underlying SIADH Added Urea 15 g twice daily -- Na 136 Hemoptysis secondary to above in the setting of dual antiplatelet therapy Plavix held -- resolved given 2 units PRBC Hg stable at 10 stable 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 Patient decannulated the inner tracheostomy tube in the ER replaced by ED Continue supplemental oxygen as needed Monitor Dysphagia VFSS in 2019 showed silent aspiration with trapping in the vallecula H/O Non compliance Speech eval Aspiration precautions H/O CAD, PVD S/P stent Troponin elevation secondary to illness DD:demand ischemia in the setting of sepsis and pneumonia ECHO showed mild hypokinesis of mid apical anterior septal No acute EKG changes -- hold Plavix continue ASA COPD Pulmonary hypertension as per records 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 use Nebs PRN 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 Hypothyroidism Continue levothyroxine DVT Px: SCDs for now in light of hemoptysis Code Status Full Code plan of care discussed with patient in detail and at length all questions answered she is understanding, agreeable, comfortable with the plan of care Admission and Anticipated Discharge Date Admission Date: January 23, 2021 Subjective ff up for pneumonia, etc seen resting in bed, comfortable states she feels fine overall no bleeding per trach cough improving no chest pain, dyspnea, palpitations, dizziness no other symptoms Review of Systems Review of Systems: all noted and negative except for above Physical Exam Physical Exam: General- oriented x 3, not in distress, speaks in sentences with no effort or accessory muscle use Eyes- anicteric Neck- no JVD Lungs- mild rhonchi on the r clear on the left no wheezing Heart- normal rate, regular rhythm; no murmurs Abdomen- normal bowel sounds, nondistended, soft, nontender Extremities- mild lower leg edema, no calf tenderness Neuro- alert, oriented x 3; no gross focal neurologic deficits Skin- warm & dry Results & Data Results & Data ([place]) Vital Signs (Past 12 Hours) Vital Signs Temp Pulse Resp BP Pulse Ox 02/04/21 15:46 36.9 C 78 16 147/72 H 100 02/04/21 07:48 36.7 C 87 16 192/71 H 98 all noted and reviewed including below
[2021-02-04] MEDS: VANCOMYCIN HCL 1,250 MG in SODIUM CHLORIDE 0.9% 250 ML IV SCH (20:30)
[2021-02-04] MEDS: hydrOXYzine HCl 10 MG TAB PO PRN (20:35)
[2021-02-04] MEDS: ATORVASTATIN 20 MG TAB PO SCH (20:46)
[2021-02-05] MEDS: guaiFENesin/DEXTROM SYRUP 100MG/10MG 5ML UDC PO SCH ×4 (00:56→17:36)
[2021-02-05] MEDS: hydrOXYzine HCl 10 MG TAB PO PRN (04:01)
[2021-02-05] MEDS: LEVOTHYROXINE SODIUM 50 MCG TABLET PO SCH (06:08)
[2021-02-05] MEDS: LORazepam 0.5 MG TAB PO PRN (06:17)
[2021-02-05] MEDS: POTASSIUM CHLORIDE CRTAB 20 MEQ TABCR PO SCH ×2 (09:21→12:10)
[2021-02-05] MEDS: FERROUS SULFATE 325 MG TAB PO SCH ×2 (09:21→20:32)
[2021-02-05] MEDS: METOPROLOL SUCC 50MG EXT REL TAB PO SCH ×2 (09:22→20:32)
[2021-02-05] MEDS: amLODIPine BESYLATE 5 MG TAB PO SCH (09:22)
[2021-02-05] MEDS: ASPIRIN 81 MG ECTAB PO SCH (09:22)
[2021-02-05] MEDS: FEXOFENADINE HCL 180 MG TAB PO SCH (09:22)
[2021-02-05] MEDS: LIDOCAINE 5% 1 PATCH TD SCH (09:23)
[2021-02-05] MEDS: VENLAFAXINE HCL 37.5 MG TAB PO SCH ×2 (09:23→17:35)
[2021-02-05] MEDS: SODIUM CHLORIDE 0.65% NA SOLN 45 ML (OCEAN) SCH ×2 (09:24→20:32)
[2021-02-05] MEDS: hydrALAZINE HCL 25 MG TAB PO SCH ×3 (09:25→20:31)
[2021-02-05] MEDS: NEOMYCIN/POLYMYX/BACITR OINT 15 GM TUBE EXT SCH ×2 (09:25→20:32)
[2021-02-05] MEDS: UREA (UREA-NA) 15 GM PACK PO SCH ×3 (09:26→20:32)
[2021-02-05] MEDS: FLUTICASONE PROPIONATE NA SPR 16 GM BTL SCH (09:26)
[2021-02-05 09:44] LABS: Creatinine Clr Calc Pharmacy 63.1 ml/min; Est GFR (African American) 94.1 ml/min; Est GFR (Non-African American) 81.2 ml/min
[2021-02-05] MEDS: busPIRone 5 MG TAB PO PRN (15:09)
[2021-02-05] MEDS: POTASSIUM CHLORIDE PWD 20 MEQ PACK PO SCH (17:35)
[2021-02-05] MEDS: HYDROCODONE/ACETAMOPHEN 5/325MG TAB PO PRN (17:45)
[2021-02-05] MEDS: ATORVASTATIN 20 MG TAB PO SCH (20:32)
[2021-02-05] MEDS: VANCOMYCIN HCL 1,250 MG in SODIUM CHLORIDE 0.9% 250 ML IV SCH (20:41)
--- NOTE | 2021-02-05 20:52 | Hospitalist Progress Note ---
Date of Service February 05, 2021 Assessment & Plan (1) Sepsis: Plan: Severe sepsis Pneumonia Possible aspiration Failed outpatient treatment H/O non compliance with speech recommendations --CTA:No evidence of pulmonary embolism. Prominent left lower lobe airspace opacity with thick rim pneumatocele likely representing a developing pulmonary abscess. Mediastinal lymphadenopathy is likely reactive. --+MRSA screen --Continue supplemental oxygen as needed Sputum culture MRSA Blood cultures negative Continue IV vancomycin, Zosyn>> transition to IV vancomycin--- needs 3-week course of IV vancomycin Lactate levels normalized Appreciate pulmonary, ID input Hemoptysis resolved Will need repeat CT in 2 to 3 months Follow-up with ID, pulmonology upon discharge Hyponatremia History of hyponatremia as well Could have underlying SIADH Added Urea 15 g twice daily Continue fluid restriction Appreciate nephrology input Needs follow-up with nephrology upon discharge Hemoptysis secondary to above in the setting of dual antiplatelet therapy Plavix held Management as above Monitor CBC Hemoptysis resolved while on aspirin 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 Patient decannulated the inner tracheostomy tube in the ER replaced by ED Continue supplemental oxygen as needed Monitor Dysphagia VFSS in 2019 showed silent aspiration with trapping in the vallecula H/O Non compliance Speech eval Aspiration precautions H/O CAD, PVD S/P stent Troponin elevation secondary to illness DD:demand ischemia in the setting of sepsis and pneumonia ECHO showed mild hypokinesis of mid apical anterior septal No acute EKG changes Appreciate cardiology input Echo findings consistent with prior history of [place] as per cards Troponin trending down Aspirin, Plavix initially held secondary to hemoptysis Continue Statin Resumed aspirin 81 mg daily given extensive vascular disease as per cards Plavix held Appreciate vascular surgery input COPD Pulmonary hypertension as per records 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 use Nebs PRN 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 Hypothyroidism Continue levothyroxine Hypertension Continue Hydralazine, amlodipine Monitor DVT Px: SCDs for now Code Status Full Code Admission and Anticipated Discharge Date Admission Date: January 23, 2021 Subjective Patient is seen and examined at bedside Denies any significant shortness of breath, cough Reports leg edema Offers no other complaints Review of Systems Review of Systems: All systems reviewed & are unremarkable except as noted in Subjective Physical Exam Physical Exam: Physical Exam: Vitals signs as noted above General Appearance:Moderately built and nourished, no apparent distress Head: normocephalic, Atraumatic, +Trach Eyes: normal inspection, EOMI Neck: supple, Trachea midline Respiratory/Chest: Decreased coarse breath sounds, CTA Cardiovascular: S1, S2, No murmur Abdomen/GI:Soft, Non tender, Bowel sounds present Extremities/Musculoskeletal:normal inspection, + Pedal edema Neurologic/Psych:AAOX3, grossly no focal neurological deficits Skin: normal color, warm Results & Data Results & Data ([facility]) Vital Signs (Past 12 Hours) Vital Signs Temp Pulse Pulse Resp BP BP Pulse Ox 02/05/21 20:25 90 125/71 02/05/21 16:23 36.5 C 85 16 153/74 H 90 02/05/21 15:04 89 87 L 02/05/21 14:31 83 91 Laboratory Results BMP 02/05/21 08:52 Creatinine 0.76
[2021-02-06] MEDS: guaiFENesin/DEXTROM SYRUP 100MG/10MG 5ML UDC PO SCH ×5 (00:16→22:36)
[2021-02-06] MEDS: LORazepam 0.5 MG TAB PO PRN ×2 (01:33→07:29)
[2021-02-06] MEDS: LEVOTHYROXINE SODIUM 50 MCG TABLET PO SCH (06:44)
[2021-02-06 08:30] LABS: BUN Creatinine Ratio 15.2 (10-20); Calcium 8.4 mg/dl (8.5-10.1); Creatinine Clr Calc Pharmacy 72.7 ml/min; Est GFR (African American) 105.9 ml/min; Est GFR (Non-African American) 91.4 ml/min; Magnesium 1.8 mg/dl (1.8-2.4); Potassium 3.8 mmol/L (3.5-5.1)
[2021-02-06] MEDS: METOPROLOL SUCC 50MG EXT REL TAB PO SCH ×2 (08:51→20:46)
[2021-02-06] MEDS: amLODIPine BESYLATE 5 MG TAB PO SCH (08:51)
[2021-02-06] MEDS: VENLAFAXINE HCL 37.5 MG TAB PO SCH ×2 (08:51→16:56)
[2021-02-06] MEDS: ASPIRIN 81 MG ECTAB PO SCH (08:52)
[2021-02-06] MEDS: LIDOCAINE 5% 1 PATCH TD SCH (08:52)
[2021-02-06] MEDS: FLUTICASONE PROPIONATE NA SPR 16 GM BTL SCH (08:52)
[2021-02-06] MEDS: FERROUS SULFATE 325 MG TAB PO SCH ×2 (08:52→20:47)
[2021-02-06] MEDS: SODIUM CHLORIDE 0.65% NA SOLN 45 ML (OCEAN) SCH ×2 (08:54→20:47)
[2021-02-06] MEDS: POTASSIUM CHLORIDE PWD 20 MEQ PACK PO SCH ×3 (08:54→16:56)
[2021-02-06] MEDS: FEXOFENADINE HCL 180 MG TAB PO SCH (08:54)
[2021-02-06] MEDS: UREA (UREA-NA) 15 GM PACK PO SCH ×2 (08:54→20:49)
[2021-02-06] MEDS: NEOMYCIN/POLYMYX/BACITR OINT 15 GM TUBE EXT SCH ×2 (08:56→20:47)
[2021-02-06] MEDS: hydrALAZINE HCL 25 MG TAB PO SCH ×3 (08:57→20:46)
[2021-02-06] MEDS ORDERED: FUROSEMIDE 40 MG/4 ML VIAL IV ONE (09:07)
--- NOTE | 2021-02-06 09:41 | CT Scan Report ---
CT SCAN OF THE CHEST WITHOUT IV CONTRAST CLINICAL HISTORY: Pneumonia. COMPARISON STUDY: Chest x-ray dated 01/27/2021. Chest CT scan dated 01/23/2021 TECHNIQUE: CT scan of the thorax was performed from the thoracic inlet to the upper abdomen. Images are reviewed in the axial, sagittal, and coronal planes. IV contrast was not administered for this ex amination as per the referring clinician. Note that the examination was performed in suboptimal fashi on without IV contrast. A dose lowering technique was utilized adhering to the principles of ALARA. T he examination is compromised by motion artifact, and by streak artifact from the arms which could no t be elevated above the chest. CT DOSE: 376.47 mGy.cm FINDINGS: Lower neck: There is advanced atherosclerotic calcification of the carotid bulbs. Soft tissue thicken ing and infiltration is seen throughout the lower pharynx. Thyroid: Atrophic and heterogeneous. Thoracic aorta: There is advanced atherosclerotic calcification of the thoracic aorta is normal in ca liber and demonstrates standard 3-vessel arch anatomy. Heart: A right PICC line is in place. The heart is enlarged and without pericardial effusion. The cor onary arteries are densely calcified. Lungs and pleural spaces: A tracheostomy is in place. Evaluation of the lung parenchyma is significan tly compromised by motion artifact. Advanced emphysema is noted. Diffuse intralobular septal thickeni ng is identified. There are small pleural effusions. There is airspace consolidation throughout the l eft lower lobe and lingula. Moderate consolidation is seen within the posterior/inferior left upper l obe. Small foci of cavitation are seen within the consolidated left lower lobe. Question 3.4 x 2.7 cm pocket of fluid within the consolidated left lower lobe on image #116. Developing abscess is not exc luded. Secretions are seen within the right mainstem bronchus. The trachea appears clear. Mediastinum: There is mediastinal lymphadenopathy. Prevascular nodes measure up to 11 mm short axis. A precarinal node measures 14 mm in short axis. Alix: Not well assessed without IV contrast. Axillae: There is no axillary lymphadenopathy. Upper abdomen: Advanced atherosclerotic calcification is noted in the visualized abdominal aorta. The re is a tiny hiatal hernia. Skeletal structures: The skeletal structures are osteopenic. Degenerative change and hyperkyphosis is noted in the thoracic spine. No lytic or blastic bony lesions are seen. IMPRESSION: 1. Significant streak and motion compromised examination. 2. Cardiomegaly and advanced emphysema. 3. Diffuse intralobular septal thickening suggests fluid overload/congestive failure. 4. Extensive left basilar consolidation with foci of cavitation as above. Consolidative change has in creased as compared to 01/23/2021. 5. Question a 3.4 x 2.7 cm pocket of fluid within the consolidated left lower lobe. Developing absces s is not excluded. 6. Small pleural effusions. 7. Mediastinal lymphadenopathy. 8. Additional findings as above. ACT 112: Negative or not required by law. Electronically signed by: Anurag Harris M.D. 02/06/2021 9:39 AM
[2021-02-06] MEDS: ALBUTEROL 0.083% NEBU SOLN 3 ML VIAL NEB PRN (16:00)
[2021-02-06] MEDS ORDERED: FUROSEMIDE INJ 20 MG/2 ML VIAL IV ONE (17:00)
--- NOTE | 2021-02-06 18:12 | Hospitalist Progress Note ---
Date of Service February 06, 2021 Assessment & Plan (1) Sepsis: Plan: Severe sepsis Pneumonia Possible aspiration Failed outpatient treatment H/O non compliance with speech recommendations --CTA:No evidence of pulmonary embolism. Prominent left lower lobe airspace opacity with thick rim pneumatocele likely representing a developing pulmonary abscess. Mediastinal lymphadenopathy is likely reactive. --Positive MRSA screen -Repeat CT: Extensive left basilar consolidation with foci of cavitation as above. Consolidative change has increased as compared to 01/23/2021. Question a 3.4 x 2.7 cm pocket of fluid within the consolidated left lower lobe. Developing abscess is not excluded. --Continue supplemental oxygen as needed Sputum culture MRSA Blood cultures negative Discussed with ID on 02/06/21 continue Vancomycin--Last day of treatment 02/12/21 as per ID Needs Pulmonology follow up upon discharge Hyponatremia History of hyponatremia as well Could have underlying SIADH improving Hypokalemia Replace as needed Hemoptysis secondary to above in the setting of dual antiplatelet therapy Plavix held 2 units PRBC ordered Hg improved to 10 Monitor Volume Overload ? 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 Patient decannulated the inner tracheostomy tube in the ER replaced by ED Continue supplemental oxygen as needed Monitor Dysphagia VFSS in 2019 showed silent aspiration with trapping in the vallecula H/O Non compliance Speech eval Aspiration precautions H/O CAD, PVD S/P stent Troponin elevation secondary to illness DD:demand ischemia in the setting of sepsis and pneumonia ECHO showed mild hypokinesis of mid apical anterior septal No acute EKG changes Appreciate cardiology input Echo findings consistent with prior history of [place] as per cards Troponin trending down hold Plavix COPD Pulmonary hypertension as per records 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 use Nebs PRN 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 abuse 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 Hypothyroidism Continue levothyroxine DVT Px: SCDs for now Code Status Full Code Admission and Anticipated Discharge Date Admission Date: January 23, 2021 Subjective Patient is seen and examined at bedside States having significant lower extremity edema Discussed with ID today Shortness of breath about the same as yesterday cough better Denies any chest pain CT chest suggestive of volume overload Review of Systems Review of Systems: All systems reviewed & are unremarkable except as noted in Subjective Physical Exam Physical Exam: Physical Exam: Vitals signs as noted above General Appearance:Moderately built and nourished, no apparent distress Head: normocephalic, Atraumatic, +Trach Eyes: normal inspection, EOMI Neck: supple, Trachea midline Respiratory/Chest: Decreased coarse breath sounds, CTA Cardiovascular: S1, S2, No murmur Abdomen/GI:Soft, Non tender, Bowel sounds present Extremities/Musculoskeletal:normal inspection, + Pedal edema Neurologic/Psych:AAOX3, grossly no focal neurological deficits Skin: normal color, warm Results & Data Results & Data ([facility]) Vital Signs (Past 12 Hours) Vital Signs Temp Pulse Pulse Pulse Resp Resp Resp 02/06/21 16:03 85 20 02/06/21 10:15 85 83 18 18 02/06/21 07:39 36.7 C 77 16 BP Pulse Ox Pulse Ox Pulse Ox 02/06/21 16:03 93 02/06/21 10:15 93 87 L 02/06/21 07:39 178/81 H 92 Laboratory Results [facility] 02/06/21 06:48 Sodium 136 Potassium 3.8 Chloride 101 Carbon Dioxide 27 BUN 10 Creatinine 0.66 Glucose 91 Calcium 8.4 L
[2021-02-06] MEDS: hydrOXYzine HCl 10 MG TAB PO PRN (20:45)
[2021-02-06] MEDS: ATORVASTATIN 20 MG TAB PO SCH (20:46)
[2021-02-06] MEDS: VANCOMYCIN HCL 1,250 MG in SODIUM CHLORIDE 0.9% 250 ML IV SCH (20:52)
[2021-02-06] MEDS: HYDROCODONE/ACETAMOPHEN 5/325MG TAB PO PRN (21:21)
[2021-02-07] MEDS: LEVOTHYROXINE SODIUM 50 MCG TABLET PO SCH (06:18)
[2021-02-07] MEDS: guaiFENesin/DEXTROM SYRUP 100MG/10MG 5ML UDC PO SCH ×4 (06:18→23:17)
[2021-02-07] MEDS: hydrOXYzine HCl 10 MG TAB PO PRN (06:20)
[2021-02-07] MEDS: FUROSEMIDE 20 MG TAB PO SCH (09:07)
[2021-02-07] MEDS: VENLAFAXINE HCL 37.5 MG TAB PO SCH ×2 (09:07→17:30)
[2021-02-07] MEDS: hydrALAZINE HCL 25 MG TAB PO SCH ×3 (09:07→21:33)
[2021-02-07] MEDS: FLUTICASONE PROPIONATE NA SPR 16 GM BTL SCH (09:07)
[2021-02-07] MEDS: SODIUM CHLORIDE 0.65% NA SOLN 45 ML (OCEAN) SCH ×2 (09:08→21:37)
[2021-02-07] MEDS: METOPROLOL SUCC 50MG EXT REL TAB PO SCH ×2 (09:09→21:33)
[2021-02-07] MEDS: NEOMYCIN/POLYMYX/BACITR OINT 15 GM TUBE EXT SCH ×2 (09:09→21:36)
[2021-02-07] MEDS: POTASSIUM CHLORIDE PWD 20 MEQ PACK PO SCH ×2 (09:09→17:31)
[2021-02-07] MEDS: LIDOCAINE 5% 1 PATCH TD SCH (09:09)
[2021-02-07] MEDS: UREA (UREA-NA) 15 GM PACK PO SCH ×2 (09:10→21:34)
[2021-02-07] MEDS: ASPIRIN 81 MG ECTAB PO SCH (09:11)
[2021-02-07] MEDS: FEXOFENADINE HCL 180 MG TAB PO SCH (09:11)
[2021-02-07] MEDS: amLODIPine BESYLATE 5 MG TAB PO SCH (09:11)
[2021-02-07] MEDS: FERROUS SULFATE 325 MG TAB PO SCH ×2 (09:12→21:34)
--- NOTE | 2021-02-07 10:22 | XRay Report ---
XR chest 1V portable CLINICAL HISTORY: Volume overload. Difficulty breathing COMPARISON STUDY: 01/27/2021 TECHNIQUE: 1 view of the chest FINDINGS: Single frontal view of the chest demonstrates the cardiomediastinal silhouette to be within normal li mits. Tracheostomy tube is again seen. There has been interval placement of a right-sided PICC line. Large confluent alveolar opacities again seen within the left midlung with previously identified susp ected cavitary focus no longer seen. Additionally, there is left lower lobe atelectasis/collapse. Is also evidence for left pleural effusion. The right hemithorax is clear. There is no evidence for vasc ular congestion. There is no acute osseous pathology. IMPRESSION: Compared to previous examination, large alveolar opacity is again seen within the left mi dlung with previously identified cavitary focus no longer seen. There is also left lower lobe atelect asis/collapse and left pleural effusion. ACT 112: Negative or not required by law. Electronically signed by: Luke Cuellar M.D. 02/07/2021 10:20 AM
[2021-02-07 10:32] LABS: Calcium 8.5 mg/dl (8.5-10.1); Creatinine Clr Calc Pharmacy 62.3 ml/min; Est GFR (African American) 92.6 ml/min; Est GFR (Non-African American) 79.9 ml/min; Magnesium 1.8 mg/dl (1.8-2.4); Potassium 3.5 mmol/L (3.5-5.1)
[2021-02-07] MEDS ORDERED: FUROSEMIDE 40 MG/4 ML VIAL IV ONE (14:00)
[2021-02-07] MEDS: LORazepam 0.5 MG TAB PO PRN ×2 (14:31→23:16)
--- NOTE | 2021-02-07 18:22 | Hospitalist Progress Note ---
Date of Service February 07, 2021 Assessment & Plan (1) Sepsis: Plan: Severe sepsis Pneumonia Possible aspiration Failed outpatient treatment H/O non compliance with speech recommendations --CTA:No evidence of pulmonary embolism. Prominent left lower lobe airspace opacity with thick rim pneumatocele likely representing a developing pulmonary abscess. Mediastinal lymphadenopathy is likely reactive. --Positive MRSA screen -Repeat CT: Extensive left basilar consolidation with foci of cavitation as above. Consolidative change has increased as compared to 01/23/2021. Question a 3.4 x 2.7 cm pocket of fluid within the consolidated left lower lobe. Developing abscess is not excluded. --Continue supplemental oxygen as needed Sputum culture MRSA Blood cultures negative Discussed with ID on 02/06/21 continue Vancomycin--Last day of treatment 02/12/21 as per ID Needs Pulmonology follow up upon discharge at [facility] Discussed with Pulm regarding repeat CT findings: Recommends No Intervention. Advised to continue current treatment and repeat CT chest in 3-4 Months. Hyponatremia History of hyponatremia as well Could have underlying SIADH improved Hypokalemia Replace as needed Hemoptysis secondary to above in the setting of dual antiplatelet therapy Plavix held 2 units PRBC ordered Hg improved to 10 Monitor Volume Overload ? 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 Patient decannulated the inner tracheostomy tube in the ER replaced by ED Continue supplemental oxygen as needed Monitor Dysphagia VFSS in 2019 showed silent aspiration with trapping in the vallecula H/O Non compliance Speech eval Aspiration precautions H/O CAD, PVD S/P stent Troponin elevation secondary to illness DD:demand ischemia in the setting of sepsis and pneumonia ECHO showed mild hypokinesis of mid apical anterior septal No acute EKG changes Appreciate cardiology input Echo findings consistent with prior history of [place] as per cards Troponin trending down hold Plavix COPD Pulmonary hypertension as per records 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 use Nebs PRN 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 Hypothyroidism Continue levothyroxine DVT Px: SCDs for now Code Status Full Code Disposition Family: Rhona Birmingham #[phone] Admission and Anticipated Discharge Date Admission Date: January 23, 2021 Subjective Patient is seen and examined at bedside Leg edema slowly improving Dyspnea, cough with expectoration stable Discussed with pulmonology Updated patient's daughter over the phone Denies any chest pain, abd pain, nausea Review of Systems Review of Systems: All systems reviewed & are unremarkable except as noted in Subjective Physical Exam Physical Exam: Physical Exam: Vitals signs as noted above General Appearance:Moderately built and nourished, no apparent distress Head: normocephalic, Atraumatic, +Trach Eyes: normal inspection, EOMI Neck: supple, Trachea midline Respiratory/Chest: Decreased coarse breath sounds, CTA Cardiovascular: S1, S2, No murmur Abdomen/GI:Soft, Non tender, Bowel sounds present Extremities/Musculoskeletal:normal inspection, + Pedal edema Neurologic/Psych:AAOX3, grossly no focal neurological deficits Skin: normal color, warm Results & Data Results & Data ([facility]) Vital Signs (Past 12 Hours) Vital Signs Temp Pulse Resp BP Pulse Ox 02/07/21 08:42 36.7 C 90 17 134/76 94 Laboratory Results [facility] 02/07/21 09:55 Sodium 137 Potassium 3.5 Chloride 100 Carbon Dioxide 28 BUN 19 H D Creatinine 0.77 Glucose 79 Calcium 8.5
[2021-02-07] MEDS: HYDROCODONE/ACETAMOPHEN 5/325MG TAB PO PRN ×2 (18:31→23:21)
[2021-02-07] MEDS ORDERED: VANCOMYCIN TROUGH ONE (20:30)
[2021-02-07] MEDS: busPIRone 5 MG TAB PO PRN (21:32)
[2021-02-07] MEDS: ATORVASTATIN 20 MG TAB PO SCH (21:33)
[2021-02-07] MEDS: VANCOMYCIN HCL 1,250 MG in SODIUM CHLORIDE 0.9% 250 ML IV SCH (21:37)
[2021-02-08] MEDS: LEVOTHYROXINE SODIUM 50 MCG TABLET PO SCH (05:04)
[2021-02-08] MEDS: guaiFENesin/DEXTROM SYRUP 100MG/10MG 5ML UDC PO SCH ×3 (05:04→17:20)
[2021-02-08] MEDS: LORazepam 0.5 MG TAB PO PRN ×2 (08:01→14:55)
[2021-02-08] MEDS: amLODIPine BESYLATE 5 MG TAB PO SCH (08:04)
[2021-02-08] MEDS: FLUTICASONE PROPIONATE NA SPR 16 GM BTL SCH (08:04)
[2021-02-08] MEDS: FUROSEMIDE 20 MG TAB PO SCH (08:04)
[2021-02-08] MEDS: LIDOCAINE 5% 1 PATCH TD SCH (08:05)
[2021-02-08] MEDS: METOPROLOL SUCC 50MG EXT REL TAB PO SCH ×2 (08:05→21:52)
[2021-02-08] MEDS: hydrALAZINE HCL 25 MG TAB PO SCH ×3 (08:05→21:51)
[2021-02-08] MEDS: ASPIRIN 81 MG ECTAB PO SCH (08:06)
[2021-02-08] MEDS: POTASSIUM CHLORIDE PWD 20 MEQ PACK PO SCH ×2 (08:06→17:20)
[2021-02-08] MEDS: SODIUM CHLORIDE 0.65% NA SOLN 45 ML (OCEAN) SCH ×2 (08:06→21:52)
[2021-02-08] MEDS: VENLAFAXINE HCL 37.5 MG TAB PO SCH ×2 (08:07→17:19)
[2021-02-08] MEDS: UREA (UREA-NA) 15 GM PACK PO SCH ×2 (08:07→21:49)
[2021-02-08] MEDS: FERROUS SULFATE 325 MG TAB PO SCH ×2 (08:08→21:51)
[2021-02-08] MEDS: NEOMYCIN/POLYMYX/BACITR OINT 15 GM TUBE EXT SCH ×2 (08:10→21:52)
--- NOTE | 2021-02-08 09:06 | Pharmacy Report ---
Pharmacy Vanc AUC Short Note - Date of Service February 08, 2021 - Assessment & Plan Assessment 65 year old F receiving vancomycin x 3 weeks for MRSA pneumonia. Last day of vancomycin 02/12 Plan Vancomycin * AUC/ANTON is the preferred PK/PD target for vancomycin * AUC guided dosing is effective and associated with decreased risk of nephrotoxicity compared to traditional trough targets * Trough level last evening came back at ~21.8 mcg/ml (goal 15-20 mcg/ml, closer to ~20 mcg/ml reasonable). Plan to reduce vancomycin dosing slightly so that estimated trough levels <20 mcg/ml. * Will decrease to vancomycin 1000 mg iv q 24 hrs to achieve an estimated trough ~17 mcg/ml. Dosing will achieve target AUC/ANTON of 400-600 mg/L.hr and may be associated with a 12% risk of nephrotoxicity * Patient received vancomycin dose last evening, anticipate level trending upward. Plan to start new dosing ~8 hours later when estimated level closer to ~15 mcg/ml * Patient to finish course 02/12, likely do not need to recheck a trough unless therapy duration extended out further or renal function changes significantly Pharmacy will continue to follow and will adjust dose/frequency as necessary. Thank you.
[2021-02-08 09:40] LABS: Hematocrit (blood only) 32.3 % (37-47); Hemoglobin 10.4 g/dL (12.0-16.0); Mean Corpuscular Hemoglobin 30.2 pg (25-34); Mean Corpuscular Hgb Conc 32.2 g/dL (32-36); Mean Corpuscular Volume 93.9 fL (80-100); Mean Platelet Volume 9.8 fL (7.4-10.4); Platelet Count 455 K/uL (130-400); RDW Coefficient of Variation 19.9 % (11.5-14.5); RDW Standard Deviation 68.2 fL (36.4-46.3); Red Blood Count 3.44 M/uL (4.2-5.4); White Blood Count 9.16 K/uL (4.8-10.8)
[2021-02-08] MEDS: FEXOFENADINE HCL 180 MG TAB PO SCH (09:58)
[2021-02-08 10:06] LABS: BUN Creatinine Ratio 39.2 (10-20); Creatinine Clr Calc Pharmacy 61.5 ml/min; Est GFR (African American) 91.2 ml/min; Est GFR (Non-African American) 78.7 ml/min; Potassium 3.6 mmol/L (3.5-5.1)
[2021-02-08] MEDS ORDERED: FUROSEMIDE INJ 20 MG/2 ML VIAL IV ONE (15:00)
[2021-02-08] MEDS: HYDROCODONE/ACETAMOPHEN 5/325MG TAB PO PRN (18:33)
[2021-02-08] MEDS: busPIRone 5 MG TAB PO PRN (18:34)
--- NOTE | 2021-02-08 20:05 | Hospitalist Progress Note ---
Date of Service February 08, 2021 Assessment & Plan (1) Sepsis: Plan: Severe sepsis Pneumonia Possible aspiration Failed outpatient treatment H/O non compliance with speech recommendations --CTA:No evidence of pulmonary embolism. Prominent left lower lobe airspace opacity with thick rim pneumatocele likely representing a developing pulmonary abscess. Mediastinal lymphadenopathy is likely reactive. --Positive MRSA screen -Repeat CT: Extensive left basilar consolidation with foci of cavitation as above. Consolidative change has increased as compared to 01/23/2021. Question a 3.4 x 2.7 cm pocket of fluid within the consolidated left lower lobe. Developing abscess is not excluded. --Continue supplemental oxygen as needed Sputum culture MRSA Blood cultures negative Discussed with ID on 02/06/21 continue Vancomycin--Last day of treatment 02/12/21 as per ID Needs Pulmonology follow up upon discharge at [facility] Discussed with Pulm regarding repeat CT findings: Recommends No Intervention. Advised to continue current treatment and repeat CT chest in 3-4 Months. Continue current management Consider rehab placement if family agrees/Patient qualifies Hyponatremia History of hyponatremia as well Could have underlying SIADH improved Hypokalemia Replace as needed Hemoptysis secondary to above in the setting of dual antiplatelet therapy Plavix held 2 units PRBC ordered Hg improved to 10 Monitor Volume Overload ? 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 Patient decannulated the inner tracheostomy tube in the ER replaced by ED Continue supplemental oxygen as needed Monitor Dysphagia VFSS in 2019 showed silent aspiration with trapping in the vallecula H/O Non compliance Speech eval Aspiration precautions H/O CAD, PVD S/P stent Troponin elevation secondary to illness DD:demand ischemia in the setting of sepsis and pneumonia ECHO showed mild hypokinesis of mid apical anterior septal No acute EKG changes Appreciate cardiology input Echo findings consistent with prior history of [place] as per cards Troponin trending down hold Plavix COPD Pulmonary hypertension as per records 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 use Nebs PRN 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 Hypothyroidism Continue levothyroxine DVT Px: SCDs for now Code Status Full Code Disposition Family: Rhona Birmingham #[phone] Admission and Anticipated Discharge Date Admission Date: January 23, 2021 Subjective Patient is seen and examined at bedside No new complaints Leg edema better Dyspnea, cough with expectoration for the same as yesterday Updated patient's daughter over the phone Denies any chest pain, abd pain, nausea Review of Systems Review of Systems: All systems reviewed & are unremarkable except as noted in Subjective Physical Exam Physical Exam: Physical Exam: Vitals signs as noted above General Appearance:Moderately built and nourished, no apparent distress Head: normocephalic, Atraumatic, +Trach Eyes: normal inspection, EOMI Neck: supple, Trachea midline Respiratory/Chest: Decreased coarse breath sounds, CTA Cardiovascular: S1, S2, No murmur Abdomen/GI:Soft, Non tender, Bowel sounds present Extremities/Musculoskeletal:normal inspection, + Pedal edema Neurologic/Psych:AAOX3, grossly no focal neurological deficits Skin: normal color, warm Results & Data Results & Data ([facility]) Vital Signs (Past 12 Hours) Vital Signs Temp Pulse Resp BP Pulse Ox 02/08/21 16:57 36.8 C 85 18 154/77 H 92 Laboratory Results Short CBC 02/08/21 Range/Units 09:22 WBC 9.16 (4.8-10.8) K/uL Hgb 10.4 L (12.0-16.0) g/dL Hct 32.3 L (37-47) % Plt Count 455 H (130-400) K/uL BMP 02/08/21 09:22 Sodium 134 L Potassium 3.6 Chloride 101 Carbon Dioxide 28 BUN 31 H D Creatinine 0.78 Glucose 93 Calcium 9.0
[2021-02-08] MEDS: hydrOXYzine HCl 10 MG TAB PO PRN (21:51)
[2021-02-08] MEDS: ATORVASTATIN 20 MG TAB PO SCH (21:51)
[2021-02-09] MEDS: guaiFENesin/DEXTROM SYRUP 100MG/10MG 5ML UDC PO SCH ×6 (00:58→22:24)
[2021-02-09] MEDS: VANCOMYCIN HCL 1,000 MG in SODIUM CHLORIDE 0.9% 250 ML IV SCH (05:14)
[2021-02-09] MEDS: LEVOTHYROXINE SODIUM 50 MCG TABLET PO SCH (05:14)
[2021-02-09] MEDS: METOPROLOL SUCC 50MG EXT REL TAB PO SCH ×2 (08:16→20:56)
[2021-02-09] MEDS: busPIRone 5 MG TAB PO PRN (08:16)
[2021-02-09] MEDS: FUROSEMIDE 20 MG TAB PO SCH (08:17)
[2021-02-09] MEDS: amLODIPine BESYLATE 5 MG TAB PO SCH (08:17)
[2021-02-09] MEDS: ASPIRIN 81 MG ECTAB PO SCH (08:17)
[2021-02-09] MEDS: hydrALAZINE HCL 25 MG TAB PO SCH ×3 (08:17→20:43)
[2021-02-09] MEDS: hydrOXYzine HCl 10 MG TAB PO PRN (08:17)
[2021-02-09] MEDS: FERROUS SULFATE 325 MG TAB PO SCH ×2 (08:18→20:55)
[2021-02-09] MEDS: FEXOFENADINE HCL 180 MG TAB PO SCH (08:18)
[2021-02-09] MEDS: FLUTICASONE PROPIONATE NA SPR 16 GM BTL SCH (08:20)
[2021-02-09] MEDS: VENLAFAXINE HCL 37.5 MG TAB PO SCH ×2 (08:20→17:31)
[2021-02-09] MEDS: ACETAMINOPHEN 325 MG TAB PO PRN (08:21)
[2021-02-09] MEDS: LIDOCAINE 5% 1 PATCH TD SCH (08:21)
[2021-02-09] MEDS: SODIUM CHLORIDE 0.65% NA SOLN 45 ML (OCEAN) SCH ×2 (08:21→20:44)
[2021-02-09] MEDS: POTASSIUM CHLORIDE PWD 20 MEQ PACK PO SCH ×2 (08:26→17:31)
[2021-02-09] MEDS: UREA (UREA-NA) 15 GM PACK PO SCH ×2 (08:26→20:44)
[2021-02-09] MEDS: NEOMYCIN/POLYMYX/BACITR OINT 15 GM TUBE EXT SCH ×2 (09:08→20:44)
[2021-02-09] MEDS: LORazepam 0.5 MG TAB PO PRN (12:31)
[2021-02-09 13:00] LABS: BUN Creatinine Ratio 33.1 (10-20); Creatinine Clr Calc Pharmacy 62.3 ml/min; Est GFR (African American) 92.6 ml/min; Est GFR (Non-African American) 79.9 ml/min
[2021-02-09] MEDS ORDERED: FUROSEMIDE INJ 20 MG/2 ML VIAL IV ONE (16:00)
--- NOTE | 2021-02-09 16:09 | Hospitalist Progress Note ---
Date of Service February 09, 2021 Assessment & Plan (1) Sepsis: Plan: Severe sepsis Pneumonia Possible aspiration Failed outpatient treatment H/O non compliance with speech recommendations --CTA:No evidence of pulmonary embolism. Prominent left lower lobe airspace opacity with thick rim pneumatocele likely representing a developing pulmonary abscess. Mediastinal lymphadenopathy is likely reactive. --Positive MRSA screen -Repeat CT: Extensive left basilar consolidation with foci of cavitation as above. Consolidative change has increased as compared to 01/23/2021. Question a 3.4 x 2.7 cm pocket of fluid within the consolidated left lower lobe. Developing abscess is not excluded. --Continue supplemental oxygen as needed Sputum culture MRSA Blood cultures negative Discussed with ID on 02/06/21 continue Vancomycin--Last day of treatment 02/12/21 as per ID Needs Pulmonology follow up upon discharge at [facility] Discussed with Pulm regarding repeat CT findings: Recommends No Intervention. Advised to continue current treatment and repeat CT chest in 3-4 Months. Consider rehab placement if family agrees/Patient qualifies Case management to help with discharge planning Hyponatremia History of hyponatremia as well Could have underlying SIADH Sodium levels improved Monitor Hypokalemia Replace as needed Hemoptysis secondary to above in the setting of dual antiplatelet therapy Plavix held 2 units PRBC ordered Hg improved to 10 Monitor Volume Overload ? 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 Patient decannulated the inner tracheostomy tube in the ER replaced by ED Continue supplemental oxygen as needed Monitor Dysphagia VFSS in 2019 showed silent aspiration with trapping in the vallecula H/O Non compliance Speech eval Aspiration precautions H/O CAD, PVD S/P stent Troponin elevation secondary to illness DD:demand ischemia in the setting of sepsis and pneumonia ECHO showed mild hypokinesis of mid apical anterior septal No acute EKG changes Appreciate cardiology input Echo findings consistent with prior history of [place] as per cards Troponin trending down hold Plavix COPD Pulmonary hypertension as per records 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 use Nebs PRN 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 abuse 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 Hypothyroidism Continue levothyroxine DVT Px: SCDs for now Code Status Full Code Disposition Family: Rhona Birmingham #[phone] Admission and Anticipated Discharge Date Admission Date: January 23, 2021 Subjective Patient is seen and examined at bedside Dyspnea much improved Persistent tracheal secretions Leg edema improving Chronic cough with expectoration Denies any chest pain, abd pain, nausea Review of Systems Review of Systems: All systems reviewed & are unremarkable except as noted in Subjective Physical Exam Physical Exam: Physical Exam: Vitals signs as noted above General Appearance:Moderately built and nourished, no apparent distress Head: normocephalic, Atraumatic, +Trach Eyes: normal inspection, EOMI Neck: supple, Trachea midline Respiratory/Chest: Decreased coarse breath sounds, CTA Cardiovascular: S1, S2, No murmur Abdomen/GI:Soft, Non tender, Bowel sounds present Extremities/Musculoskeletal:normal inspection, + Pedal edema improving Neurologic/Psych:AAOX3, grossly no focal neurological deficits Skin: normal color, warm Results & Data Results & Data ([facility]) Vital Signs (Past 12 Hours) Vital Signs Temp Pulse Resp BP Pulse Ox 02/09/21 07:06 36.6 C 84 16 159/75 H 91 Laboratory Results [facility] 02/09/21 12:14 Sodium 134 L Potassium 4.0 Chloride 99 Carbon Dioxide 28 BUN 26 H Creatinine 0.77 Glucose 68 L Calcium 9.0
[2021-02-09] MEDS: HYDROCODONE/ACETAMOPHEN 5/325MG TAB PO PRN ×2 (17:36→20:55)
[2021-02-09] MEDS: ATORVASTATIN 20 MG TAB PO SCH (20:56)
[2021-02-10] MEDS: HYDROCODONE/ACETAMOPHEN 5/325MG TAB PO PRN ×3 (05:45→20:01)
[2021-02-10] MEDS: busPIRone 5 MG TAB PO PRN (05:46)
[2021-02-10] MEDS: VANCOMYCIN HCL 1,000 MG in SODIUM CHLORIDE 0.9% 250 ML IV SCH (05:46)
[2021-02-10] MEDS: LEVOTHYROXINE SODIUM 50 MCG TABLET PO SCH (05:47)
[2021-02-10] MEDS: guaiFENesin/DEXTROM SYRUP 100MG/10MG 5ML UDC PO SCH ×4 (05:48→23:58)
[2021-02-10 10:46] LABS: Calcium 8.3 mg/dl (8.5-10.1); Creatinine Clr Calc Pharmacy 66.6 ml/min; Est GFR (African American) 100.4 ml/min; Est GFR (Non-African American) 86.7 ml/min; Potassium 3.6 mmol/L (3.5-5.1)
[2021-02-10] MEDS: VENLAFAXINE HCL 37.5 MG TAB PO SCH ×2 (11:39→17:10)
[2021-02-10] MEDS: ASPIRIN 81 MG ECTAB PO SCH (11:40)
[2021-02-10] MEDS: amLODIPine BESYLATE 5 MG TAB PO SCH (11:40)
[2021-02-10] MEDS: FLUTICASONE PROPIONATE NA SPR 16 GM BTL SCH (11:41)
[2021-02-10] MEDS: FEXOFENADINE HCL 180 MG TAB PO SCH (11:41)
[2021-02-10] MEDS: FERROUS SULFATE 325 MG TAB PO SCH ×2 (11:41→20:02)
[2021-02-10] MEDS: FUROSEMIDE 20 MG TAB PO SCH (11:42)
[2021-02-10] MEDS: hydrALAZINE HCL 25 MG TAB PO SCH ×3 (11:42→20:02)
[2021-02-10] MEDS: POTASSIUM CHLORIDE PWD 20 MEQ PACK PO SCH ×2 (11:43→17:08)
[2021-02-10] MEDS: METOPROLOL SUCC 50MG EXT REL TAB PO SCH ×2 (11:43→20:03)
[2021-02-10] MEDS: SODIUM CHLORIDE 0.65% NA SOLN 45 ML (OCEAN) SCH ×2 (11:45→20:10)
[2021-02-10] MEDS: UREA (UREA-NA) 15 GM PACK PO SCH ×2 (11:51→20:03)
[2021-02-10] MEDS: NEOMYCIN/POLYMYX/BACITR OINT 15 GM TUBE EXT SCH ×2 (11:52→20:10)
[2021-02-10] MEDS: LIDOCAINE 5% 1 PATCH TD SCH (11:52)
--- NOTE | 2021-02-10 19:33 | Hospitalist Progress Note ---
Date of Service February 10, 2021 Assessment & Plan (1) Sepsis: Plan: Severe sepsis Pneumonia Possible aspiration Failed outpatient treatment H/O non compliance with speech recommendations --CTA:No evidence of pulmonary embolism. Prominent left lower lobe airspace opacity with thick rim pneumatocele likely representing a developing pulmonary abscess. Mediastinal lymphadenopathy is likely reactive. --Positive MRSA screen -Repeat CT: Extensive left basilar consolidation with foci of cavitation as above. Consolidative change has increased as compared to 01/23/2021. Question a 3.4 x 2.7 cm pocket of fluid within the consolidated left lower lobe. Developing abscess is not excluded. --Continue supplemental oxygen as needed Sputum culture MRSA Blood cultures negative Discussed with ID on 02/06/21 continue Vancomycin--Last day of treatment 02/12/21 as per ID Needs Pulmonology follow up upon discharge at [facility] Discussed with Pulm regarding repeat CT findings: Recommends No Intervention. Advised to continue current treatment and repeat CT chest in 3-4 Months. 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 Patient decannulated the inner tracheostomy tube in the ER replaced by ED Continue supplemental oxygen as needed Monitor Dysphagia VFSS in 2019 showed silent aspiration with trapping in the vallecula H/O Non compliance Speech eval Aspiration precautions H/O CAD, PVD S/P stent Troponin elevation secondary to illness DD:demand ischemia in the setting of sepsis and pneumonia ECHO showed mild hypokinesis of mid apical anterior septal No acute EKG changes Appreciate cardiology input Echo findings consistent with prior history of [place] as per cards Troponin trending down hold Plavix COPD Pulmonary hypertension as per records 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 use Nebs PRN 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 Hypothyroidism Continue levothyroxine DVT Px: SCDs for now Code Status Full Code Disposition Family: Rhona Birmingham #[phone] Admission and Anticipated Discharge Date Admission Date: January 23, 2021 Subjective Patient is seen and examined at bedside States her sputum is more whitish and less today Otherwise no new complaints Leg edema improved Chronic cough with expectoration Denies any chest pain, abd pain, nausea Review of Systems Review of Systems: All systems reviewed & are unremarkable except as noted in Subjective Physical Exam Physical Exam: Physical Exam: Vitals signs as noted above General Appearance:Moderately built and nourished, no apparent distress Head: normocephalic, Atraumatic, +Trach Eyes: normal inspection, EOMI Neck: supple, Trachea midline Respiratory/Chest: Decreased coarse breath sounds, CTA Cardiovascular: S1, S2, No murmur Abdomen/GI:Soft, Non tender, Bowel sounds present Extremities/Musculoskeletal:normal inspection, + Pedal edema improving Neurologic/Psych:AAOX3, grossly no focal neurological deficits Skin: normal color, warm Results & Data Results & Data ([facility]) Vital Signs (Past 12 Hours) Vital Signs Temp Pulse Resp BP Pulse Ox Pulse Ox 02/10/21 16:10 36.8 C 78 18 127/80 96 02/10/21 13:41 94 02/10/21 10:35 36.6 C 80 18 160/83 H 90 Laboratory Results [facility] 02/10/21 09:54 Sodium 137 Potassium 3.6 Chloride 103 Carbon Dioxide 25 BUN 15 Creatinine 0.72 Glucose 77 Calcium 8.3 L
[2021-02-10] MEDS: hydrOXYzine HCl 10 MG TAB PO PRN (20:01)
[2021-02-10] MEDS: ATORVASTATIN 20 MG TAB PO SCH (20:02)
[2021-02-11] MEDS: HYDROCODONE/ACETAMOPHEN 5/325MG TAB PO PRN ×3 (06:07→21:20)
[2021-02-11] MEDS: guaiFENesin/DEXTROM SYRUP 100MG/10MG 5ML UDC PO SCH ×3 (06:08→17:42)
[2021-02-11] MEDS: VANCOMYCIN HCL 1,000 MG in SODIUM CHLORIDE 0.9% 250 ML IV SCH (06:08)
[2021-02-11] MEDS: hydrOXYzine HCl 10 MG TAB PO PRN ×2 (06:08→21:21)
[2021-02-11] MEDS: LEVOTHYROXINE SODIUM 50 MCG TABLET PO SCH (06:08)
[2021-02-11] MEDS: VENLAFAXINE HCL 37.5 MG TAB PO SCH ×2 (08:05→17:42)
[2021-02-11] MEDS: FUROSEMIDE 20 MG TAB PO SCH (08:06)
[2021-02-11] MEDS: FEXOFENADINE HCL 180 MG TAB PO SCH (08:06)
[2021-02-11] MEDS: ASPIRIN 81 MG ECTAB PO SCH (08:06)
[2021-02-11] MEDS: amLODIPine BESYLATE 5 MG TAB PO SCH (08:06)
[2021-02-11] MEDS: FERROUS SULFATE 325 MG TAB PO SCH ×2 (08:06→21:22)
[2021-02-11] MEDS: LIDOCAINE 5% 1 PATCH TD SCH (08:07)
[2021-02-11] MEDS: hydrALAZINE HCL 25 MG TAB PO SCH ×3 (08:07→21:22)
[2021-02-11] MEDS: POTASSIUM CHLORIDE PWD 20 MEQ PACK PO SCH ×2 (08:07→17:41)
[2021-02-11] MEDS: METOPROLOL SUCC 50MG EXT REL TAB PO SCH ×2 (08:07→21:22)
[2021-02-11] MEDS: FLUTICASONE PROPIONATE NA SPR 16 GM BTL SCH (08:07)
[2021-02-11] MEDS: NEOMYCIN/POLYMYX/BACITR OINT 15 GM TUBE EXT SCH ×2 (08:08→21:22)
[2021-02-11] MEDS: SODIUM CHLORIDE 0.65% NA SOLN 45 ML (OCEAN) SCH ×2 (08:08→21:22)
[2021-02-11] MEDS: UREA (UREA-NA) 15 GM PACK PO SCH (08:08)
[2021-02-11 10:25] LABS: BUN Creatinine Ratio 11.2 (10-20); Calcium 8.5 mg/dl (8.5-10.1); Creatinine Clr Calc Pharmacy 55.8 ml/min; Est GFR (Non-African American) 69.9 ml/min; Potassium 3.6 mmol/L (3.5-5.1)
--- NOTE | 2021-02-11 18:20 | Hospitalist Progress Note ---
Date of Service February 11, 2021 Assessment & Plan (1) Sepsis: Plan: Severe sepsis Pneumonia Possible aspiration Failed outpatient treatment H/O non compliance with speech recommendations --CTA:No evidence of pulmonary embolism. Prominent left lower lobe airspace opacity with thick rim pneumatocele likely representing a developing pulmonary abscess. Mediastinal lymphadenopathy is likely reactive. --Positive MRSA screen -Repeat CT: Extensive left basilar consolidation with foci of cavitation as above. Consolidative change has increased as compared to 01/23/2021. Question a 3.4 x 2.7 cm pocket of fluid within the consolidated left lower lobe. Developing abscess is not excluded. --Continue supplemental oxygen as needed Sputum culture MRSA Blood cultures negative Discussed with ID on 02/06/21 continue Vancomycin--Last day of treatment 02/12/21 as per ID Needs Pulmonology follow up upon discharge at [facility] Discussed with Pulm regarding repeat CT findings: Recommends No Intervention. Advised to continue current treatment and repeat CT chest in 3-4 Months. Consider rehab placement if family agrees/Patient qualifies Case management to help with discharge planning Patient refuses rehab placement We will complete IV antibiotic course tomorrow Plan to discharge home with home health tomorrow after completion of IV antibiotic course Had 2 step today Hyponatremia History of hyponatremia as well Could have underlying SIADH Sodium levels improved Monitor Hypokalemia Replace as needed Hemoptysis secondary to above in the setting of dual antiplatelet therapy Plavix held 2 units PRBC ordered Hg improved to 10 Monitor Volume Overload Possible acute diastolic heart failure On fluid restriction Monitor volume status closely Leg edema improving Continue lasix 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 Patient decannulated the inner tracheostomy tube in the ER replaced by ED Continue supplemental oxygen as needed Monitor Dysphagia VFSS in 2019 showed silent aspiration with trapping in the vallecula H/O Non compliance Speech eval Aspiration precautions H/O CAD, PVD S/P stent Troponin elevation secondary to illness DD:demand ischemia in the setting of sepsis and pneumonia ECHO showed mild hypokinesis of mid apical anterior septal No acute EKG changes Appreciate cardiology input Echo findings consistent with prior history of NM as per cards Troponin trending down hold Plavix COPD Pulmonary hypertension as per records 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 use Nebs PRN 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 abuse [employer] Planning to quit Hypothyroidism Continue levothyroxine DVT Px: SCDs for now Code Status Full Code Disposition Family: Rhona Birmingham #[id number] Admission and Anticipated Discharge Date Admission Date: January 23, 2021 Subjective Patient is seen and examined at bedside No new complaints Refuses rehab placement Cough improved Denies any dyspnea Also denies any chest pain, abd pain, nausea Review of Systems Review of Systems: All systems reviewed & are unremarkable except as noted in Subjective Physical Exam Physical Exam: Physical Exam: Vitals signs as noted above General Appearance:Moderately built and nourished, no apparent distress Head: normocephalic, Atraumatic, +Trach Eyes: normal inspection, EOMI Neck: supple, Trachea midline Respiratory/Chest: Decreased coarse breath sounds, CTA Cardiovascular: S1, S2, No murmur Abdomen/GI:Soft, Non tender, Bowel sounds present Extremities/Musculoskeletal:normal inspection, + Pedal edema improving Neurologic/Psych:AAOX3, grossly no focal neurological deficits Skin: normal color, warm Results & Data Results & Data ([facility]) Vital Signs (Past 12 Hours) Vital Signs Temp Pulse Pulse Pulse Pulse Pulse Resp 02/11/21 16:30 36.7 C 74 16 02/11/21 13:13 92 H 88 84 02/11/21 08:04 36.7 C 76 20 Resp Resp Resp BP Pulse Ox Pulse Ox Pulse Ox 02/11/21 16:30 127/67 92 02/11/21 13:13 20 20 20 90 92 02/11/21 08:04 145/71 H 94 Pulse Ox 02/11/21 16:30 02/11/21 13:13 93 02/11/21 08:04 Laboratory Results BMP 02/11/21 09:04 Sodium 136 Potassium 3.6 Chloride 102 Carbon Dioxide 26 BUN 10 D Creatinine 0.86 Glucose 112 H Calcium 8.5
[2021-02-11] MEDS: ATORVASTATIN 20 MG TAB PO SCH (21:22)
[2021-02-12] MEDS: guaiFENesin/DEXTROM SYRUP 100MG/10MG 5ML UDC PO SCH ×2 (00:31→06:02)
[2021-02-12] MEDS: VANCOMYCIN HCL 1,000 MG in SODIUM CHLORIDE 0.9% 250 ML IV SCH (06:02)
[2021-02-12] MEDS: hydrOXYzine HCl 10 MG TAB PO PRN (06:02)
[2021-02-12] MEDS: LEVOTHYROXINE SODIUM 50 MCG TABLET PO SCH (06:02)
[2021-02-12] MEDS: HYDROCODONE/ACETAMOPHEN 5/325MG TAB PO PRN (06:02)
[2021-02-12 08:40] LABS: Hematocrit (blood only) 32.2 % (37-47); Hemoglobin 10.5 g/dL (12.0-16.0); Mean Corpuscular Hemoglobin 30.3 pg (25-34); Mean Corpuscular Hgb Conc 32.6 g/dL (32-36); Mean Corpuscular Volume 92.8 fL (80-100); Mean Platelet Volume 9.9 fL (7.4-10.4); Platelet Count 397 K/uL (130-400); RDW Standard Deviation 64.6 fL (36.4-46.3); Red Blood Count 3.47 M/uL (4.2-5.4); White Blood Count 9.77 K/uL (4.8-10.8)
[2021-02-12] MEDS: FLUTICASONE PROPIONATE NA SPR 16 GM BTL SCH (08:54)
[2021-02-12] MEDS: SODIUM CHLORIDE 0.65% NA SOLN 45 ML (OCEAN) SCH (08:54)
[2021-02-12] MEDS: NEOMYCIN/POLYMYX/BACITR OINT 15 GM TUBE EXT SCH (08:54)
[2021-02-12] MEDS: VENLAFAXINE HCL 37.5 MG TAB PO SCH (08:55)
[2021-02-12] MEDS: amLODIPine BESYLATE 5 MG TAB PO SCH (08:55)
[2021-02-12] MEDS: FERROUS SULFATE 325 MG TAB PO SCH (08:55)
[2021-02-12] MEDS: LIDOCAINE 5% 1 PATCH TD SCH (08:55)
[2021-02-12] MEDS: FEXOFENADINE HCL 180 MG TAB PO SCH (08:55)
[2021-02-12] MEDS: METOPROLOL SUCC 50MG EXT REL TAB PO SCH (08:55)
[2021-02-12] MEDS: ASPIRIN 81 MG ECTAB PO SCH (08:55)
[2021-02-12] MEDS: POTASSIUM CHLORIDE PWD 20 MEQ PACK PO SCH (08:55)
[2021-02-12] MEDS: hydrALAZINE HCL 25 MG TAB PO SCH (08:55)
[2021-02-12] MEDS: FUROSEMIDE 20 MG TAB PO SCH (08:55)
[2021-02-12 09:07] LABS: BUN Creatinine Ratio 11.5 (10-20); Calcium 8.2 mg/dl (8.5-10.1); Creatinine Clr Calc Pharmacy 66.6 ml/min; Est GFR (African American) 100.4 ml/min; Est GFR (Non-African American) 86.7 ml/min; Potassium 3.8 mmol/L (3.5-5.1)
--- NOTE | 2021-02-12 09:09 | Hospitalist Progress Note ---
Date of Service February 12, 2021 Assessment & Plan (1) Sepsis: Plan: Severe sepsis Pneumonia -necrotizing/MRSA pneumonia Possible aspiration Failed outpatient treatment H/O non compliance with speech recommendations --CTA:No evidence of pulmonary embolism. Prominent left lower lobe airspace opacity with thick rim pneumatocele likely representing a developing pulmonary abscess. Mediastinal lymphadenopathy is likely reactive. --Positive MRSA screen -Repeat CT: Extensive left basilar consolidation with foci of cavitation as above. Consolidative change has increased as compared to 01/23/2021. Question a 3.4 x 2.7 cm pocket of fluid within the consolidated left lower lobe. Developing abscess is not excluded. --Continue supplemental oxygen as needed Sputum culture MRSA Blood cultures negative Discussed with ID on 02/06/21 continue Vancomycin--Last day of treatment 02/12/21 as per ID Needs Pulmonology follow up upon discharge at [facility] Discussed with Pulm regarding repeat CT findings: Recommends No Intervention. Advised to continue current treatment and repeat CT chest in 3-4 Months. Consider rehab placement if family agrees/Patient qualifies Case management to help with discharge planning Patient refuses rehab placement Completed IV antibiotic course today (02/12) Plan to discharge home with home health today Hyponatremia History of hyponatremia as well Could have underlying SIADH Sodium levels improved Nephrology consulted, recommend BMP in 1 week Hypokalemia Replace as needed Hemoptysis secondary to above in the setting of dual antiplatelet therapy Plavix held 2 units PRBC ordered Hg improved to 10 Monitor Needs to discuss further with healthcare providers, if/when Plavix should be restarted Volume Overload Possible acute diastolic heart failure On fluid restriction Monitor volume status closely Leg edema improving Continue lasix 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 Patient decannulated the inner tracheostomy tube in the ER replaced by ED Continue supplemental oxygen as needed Monitor Dysphagia VFSS in 2019 showed silent aspiration with trapping in the vallecula H/O Non compliance Speech eval Aspiration precautions H/O CAD, PVD S/P stent Troponin elevation secondary to illness DD:demand ischemia in the setting of sepsis and pneumonia ECHO showed mild hypokinesis of mid apical anterior septal No acute EKG changes Appreciate cardiology input Echo findings consistent with prior history of HI as per cards Troponin trending down hold Plavix HTN Seen by cardiology during her prolonged hospital stay, her metoprolol tartrate w as changed to Toprol succinate (50 BID) Also during her hospital stay, she was started on amlodipine and hydralazine to control blood pressure Recommend to check blood pressure as outpatient, and adjust medications as needed COPD Pulmonary hypertension as per records 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 use Nebs PRN 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 Hypothyroidism Continue levothyroxine DVT Px: SCDs for now Code Status Full Code Disposition Family: Rhona Birmingham #[phone] Admission and Anticipated Discharge Date Admission Date: January 23, 2021 Subjective Patient is seen in follow-up of necrotizing / MRSA pneumonia Patient is currently sitting up in bed, in no acute distress No acute events overnight Plan to discharge home with home health, as patient is not interested in rehab Cough improved Denies any dyspnea Also denies any fever, chills, chest pain, abd pain, nausea Review of Systems Review of Systems: All systems reviewed & are unremarkable except as noted in Subjective Physical Exam Physical Exam: General Appearance:Moderately built and nourished, no apparent distress Head: normocephalic, Atraumatic, +Trach Eyes: normal inspection, EOMI Neck: supple, Trachea midline Respiratory/Chest: mildly decreased breath sounds, CTA, no wheezing Cardiovascular: S1, S2, No murmur Abdomen/GI:Soft, Non tender, Bowel sounds present Extremities/Musculoskeletal:normal inspection, + Pedal edema improving Neurologic/Psych:AAOX3, answers appropriately, moves extremities Skin: normal color, warm Results & Data Results & Data ([facility]) Vital Signs (Past 12 Hours) Vital Signs Temp Pulse Pulse Resp BP Pulse Ox 02/12/21 08:09 36.8 C 18 142/71 H 88 L 02/11/21 22:20 36.6 C 74 18 145/73 H 90 02/11/21 21:17 74 145/70 H Laboratory Results 02/12/21 02/12/21 02/11/21 Range/Units 08:22 08:22 09:04 WBC 9.77 (4.8-10.8) K/uL RBC 3.47 L (4.2-5.4) M/uL Hgb 10.5 L (12.0-16.0) g/dL Hct 32.2 L (37-47) % MCV 92.8 (80-100) fL MCH 30.3 (25-34) pg MCHC 32.6 (32-36) g/dL RDW Std Deviation 64.6 H (36.4-46.3) fL RDW Coeff of Jair 19.0 H (11.5-14.5) % Plt Count 397 (130-400) K/uL MPV 9.9 (7.4-10.4) fL Sodium 135 L 136 (136-145) mmol/L Potassium 3.8 3.6 (3.5-5.1) mmol/L Chloride 105 102 (98-107) mmol/L Carbon Dioxide 23 26 (21-32) mmol/L Anion Gap 7.0 8.0 (3-11) BUN 8 10 D (7-18) mg/dl Creatinine 0.72 0.86 (0.6-1.2) mg/dl Est Cr Clr Drug Dosing 66.6 55.8 ml/min Est GFR ( Amer) 100.4 81.0 ml/min Est GFR (Non-Af Amer) 86.7 69.9 ml/min BUN/Creatinine Ratio 11.5 11.2 (10-20) Glucose 82 112 H (70-99) mg/dl Calcium 8.2 L 8.5 (8.5-10.1) mg/dl Medications Administered Current Inpatient Medications Acetaminophen (Acetaminophen 325 Mg Tab) 325 mg PO Q6H PRN PRN Reason: Mild Pain Stop: 02/22/21 02:50 Last Admin: 02/09/21 08:21 Dose: 325 mg Documented by: Hydrocodone Bitart/Acetaminophen (Hydrocodone/Acetamophen 5/325mg Tab) 1 tab PO QID PRN PRN Reason: Pain Stop: 02/20/21 20:59 Last Admin: 02/12/21 06:02 Dose: 1 tab Documented by: Albuterol (Albuterol 0.083% Nebu Soln 3 Ml Vial) 2.5 mg NEB Q6R PRN PRN Reason: Shortness Of Breath Or Wheezing Stop: 02/22/21 19:25 Last Admin: 02/06/21 16:00 Dose: 2.5 mg Documented by: Amlodipine Besylate (Amlodipine Besylate 5 Mg Tab) [facility] [place] Stop: 03/06/21 08:59 Last Admin: 02/12/21 08:55 Dose: 5 mg Documented by: Aspirin (Aspirin 81 Mg Ectab) 81 [facility] [place] Stop: 02/23/21 09:44 Last Admin: 02/12/21 08:55 Dose: 81 mg Documented by: Atorvastatin Calcium (Atorvastatin 20 Mg Tab) 20 mg PO HS JUANY Stop: 02/22/21 20:59 Last Admin: 02/11/21 21:22 Dose: Not Given Documented by: Buspirone HCl (Buspirone 5 Mg Tab) 5 mg PO BID PRN PRN Reason: Anxiety Stop: 02/22/21 02:50 Last Admin: 02/10/21 05:46 Dose: 5 mg Documented by: Ferrous Sulfate (Ferrous Sulfate 325 Mg Tab) 325 mg PO BID JUANY Stop: 02/22/21 08:59 Last Admin: 02/12/21 08:55 Dose: 325 mg Documented by: Fexofenadine HCl (Fexofenadine Hcl 180 Mg Tab) 180 mg PO DAILY JUANY Stop: 02/22/21 08:59 Last Admin: 02/12/21 08:55 Dose: 180 mg Documented by: Fluticasone Propionate (Fluticasone Propionate Na Spr 16 Gm Btl) 2 sprays NA DAILY JUANY Stop: 02/22/21 08:59 Last Admin: 02/12/21 08:54 Dose: 2 sprays Documented by: Furosemide (Furosemide 20 Mg Tab) 20 mg PO DAILY JUANY Stop: 03/09/21 08:59 Last Admin: 02/12/21 08:55 Dose: 20 mg Documented by: Guaifenesin/Codeine Phosphate (Guaifenesin/Codeine 100mg/10mg 5ml Udc) 5 ml PO Q6H PRN PRN Reason: Cough/hemoptysis Stop: 02/23/21 11:02 Last Admin: 02/03/21 22:49 Dose: 5 ml Documented by: Guaifenesin/Dextromethorphan (Guaifenesin/Dextrom Syrup 100mg/10mg 5ml Udc) 5 ml PO Q6H JUANY Stop: 02/23/21 11:59 Last Admin: 02/12/21 06:02 Dose: 5 ml Documented by: Heparin Sodium (Beef Lung) (Heparin 10 Unit/Ml 5 Ml Flush) 5 ml FLUSH PRN PRN PRN Reason: Flush Stop: 03/01/21 20:39 Last Admin: 02/09/21 15:39 Dose: 5 ml Documented by: Hydralazine HCl (Hydralazine Hcl 20 Mg/Ml Vial) 5 mg IV Q6H PRN PRN Reason: SYSTOLIC BP > 160 Stop: 03/03/21 08:59 Last Admin: 02/03/21 22:53 Dose: 5 mg Documented by: Hydralazine HCl (Hydralazine Hcl 25 Mg Tab) 25 mg PO TID JUANY Stop: 03/05/21 13:59 Last Admin: 02/12/21 08:55 Dose: 25 mg Documented by: Hydroxyzine HCl (Hydroxyzine Hcl 10 Mg Tab) 10 mg PO Q6H PRN PRN Reason: Anxiety Stop: 02/28/21 13:02 Last Admin: 02/12/21 06:02 Dose: 10 mg Documented by: Vancomycin HCl 1,000 mg/ (Sodium Chloride) 270 mls @ 200 mls/hr IV Q24H [facility] Stop: 02/13/21 04:59 Last Infusion: 02/12/21 07:55 Dose: Infused Documented by: Levothyroxine Sodium (Levothyroxine Sodium 50 Mcg Tablet) 50 mcg PO DAILYBB [facility] Stop: 02/22/21 06:29 Last Admin: 02/12/21 06:02 Dose: 50 mcg Documented by: Lidocaine (Lidocaine 5% 1 Patch) 1 patch TD QAM [facility] Stop: 02/23/21 11:29 Last Admin: 02/12/21 08:55 Dose: Not Given Documented by: Lorazepam (Lorazepam 0.5 Mg Tab) 0.5 mg PO TID PRN PRN Reason: Anxiety Stop: 03/04/21 16:47 Last Admin: 02/09/21 12:31 Dose: 0.5 mg Documented by: Metoprolol Succinate (Metoprolol Succ 50mg Ext Rel Tab) 50 mg PO BID [facility] Stop: 02/23/21 09:44 Last Admin: 02/12/21 08:55 Dose: 50 mg Documented by: Miscellaneous (Remove Lidoderm Patch) 1 ea N/A DAILY@2100 [facility] Stop: 02/23/21 20:59 Last Admin: 02/11/21 21:22 Dose: Not Given Documented by: Neomycin/Polymyxin/Bacitracin (Neomycin/Polymyx/Bacitr Oint 15 Gm Tube) 1 appln EXT BID [facility] Stop: 02/25/21 20:59 Last Admin: 02/12/21 08:54 Dose: 1 appln Documented by: Potassium Chloride (Potassium Chloride Pwd 20 Meq Pack) 20 meq PO BID17 [facility] Stop: 03/08/21 16:59 Last Admin: 02/12/21 08:55 Dose: 20 meq Documented by: Sennosides (Senna 8.6 Mg Tab) 8.6 mg PO DAILY PRN PRN Reason: Constipation Stop: 02/22/21 02:50 Last Admin: 01/26/21 22:40 Dose: 8.6 mg Documented by: Sodium Chloride (Sodium Chloride 0.65% Na Soln 45 Ml (Fulda)) 2 sprays NA BID JUANY Stop: 02/22/21 08:59 Last Admin: 02/12/21 08:54 Dose: 2 sprays Documented by: Sodium Chloride (Sodium Chloride 0.65% Na Soln 45 Ml (Fulda)) 1 sprays NA Q2H PRN PRN Reason: Dryness/congestion Stop: 03/05/21 21:12 Venlafaxine HCl (Venlafaxine Hcl 37.5 Mg Tab) 75 mg PO BIDM [facility] Stop: 02/22/21 07:59 Last Admin: 02/12/21 08:55 Dose: 75 mg Documented by:
--- NOTE | 2021-02-12 09:36 | Discharge Summary ---
Date of Service February 12, 2021 Admission HPI Per Admitting Provider History obtained from patient, family, and records. Medical history significant for CAD status post stent, PVD, hypertension, COPD, pulmonary hypertension as per records, laryngeal cancer status post tracheostomy (secondary to supraglottic edema)/radiation, chronic anemia (baseline hemoglobin 10), chronic hyponatremia as per records, ongoing tobacco abuse, history aspiration risk as per family Last confinement March 2020 for tracheitis. 1 week history of sinus congestion, worsening hemoptysis, shortness of breath. Known aspiration risk as per daughter. Outpatient COVID-19 test was negative. Outpatient CXR showed left lower lobe pneumonia. Augmentin added to azithromycin course. Worsening shortness of breath, back pain, symptoms despite compliance with regimen. No abdominal pain. Stool is always dark from iron as per patient family. Patient brought to the ER for evaluation. Medical History as above Surgical History : Carpal tunnel surgery, tracheoscopy/direct laryngoscopy, tracheostomy, right neck lump removal, tonsillectomy, partial gastrectomy Family History : Colon cancer, heart disease, silicosis, suicide Personal/Social history : 1/2 pack daily; 4 ETOH drinks per week, denies abuse abuse concerns/corroborated by daughter; Admission Exam Per Admitting Provider GENERAL: uncomfortable, episodic tachypnea SKIN: pallor , warm HEENT: Pale palpebral conjunctivae, no ptosis, dry buccal mucosa NECK : Supple, tracheostomy noted, no tenderness CHEST : Decreased breath sounds, occasional expiratory wheezes, no tenderness HEART : Tachycardic, no obvious murmurs ABDOMEN: Some distention, nontender EXTREMITIES : No LE swelling/tenderness, no other conspicuous deformities noted NEUROLOGIC : Coherent, no facial asymmetry, no other gross focality Principal Diagnosis Sepsis Necrotizing/MRSA pneumonia Hemoptysis Hyponatremia Discharge Exam General Appearance:Moderately built and nourished, no apparent distress Head: normocephalic, Atraumatic, +Trach Eyes: normal inspection, EOMI Neck: supple, Trachea midline Respiratory/Chest: mildly decreased breath sounds, CTA, no wheezing Cardiovascular: S1, S2, No murmur Abdomen/GI:Soft, Non tender, Bowel sounds present Extremities/Musculoskeletal:normal inspection, + Pedal edema improving Neurologic/Psych:AAOX3, answers appropriately, moves extremities Skin: normal color, warm Discharge Data Allergies Allergy/AdvReac Type Severity Reaction Status Date / Time bee venom protein (honey bee) Allergy Severe Anaphylaxis Verified 01/23/21 00:54 latex Allergy Intermediate SKIN Verified 01/23/21 00:54 BLISTERS oxycodone [From Percocet] Allergy Intermediate Vomiting Verified 01/23/21 00:54 Consultations 01/23/21 01:30 ED Decision to Admit Stat 01/23/21 02:25 Consult Pulmonology Routine 01/24/21 07:00 Consult Cardiology Routine 01/25/21 08:55 Consult Nephrology Routine 01/27/21 13:27 Consult Infectious Diseases Routine 01/27/21 13:39 Consult Vascular Surgery Routine Ordered Studies 01/23/21 00:00 CT angio chest PE protocol Urgent IMPRESSION: 1. No evidence of pulmonary embolism. 2. Prominent left lower lobe airspace opacity with thick rim pneumatocele likely representing a developing pulmonary abscess. Mediastinal lymphadenopathy is likely reactive. 01/23/21 00:30 CT head/brain wo con Urgent 01/30/21 14:46 US venous doppler LE RT Urgent IMPRESSION: No evidence of deep venous thrombus within the right lower extremity. 02/04/21 11:28 CT soft tissue neck wo con Routine IMPRESSION: 1. Significantly suboptimal examination without IV contrast. 2. There is diffuse soft tissue thickening and infiltration seen throughout the laryngopharynx, with complete occlusion of the airway above the level of the thyroid cartilage and a tracheostomy in place. These findings are likely related to the reported history of a laryngeal carcinoma as well as treatment related change. The presence of residual tumor would be impossible to exclude. 3. No obvious mass lesion is identified. No cervical lymphadenopathy is seen. 4. Advanced emphysema. 5. Layering left pleural effusion. 02/06/21 08:21 CT chest diagnostic wo con Urgent IMPRESSION: 1. Significant streak and motion compromised examination. 2. Cardiomegaly and advanced emphysema. 3. Diffuse intralobular septal thickening suggests fluid overload/congestive failure. 4. Extensive left basilar consolidation with foci of cavitation as above. Consolidative change has increased as compared to 01/23/2021. 5. Question a 3.4 x 2.7 cm pocket of fluid within the consolidated left lower lobe. Developing abscess is not excluded. 6. Small pleural effusions. 7. Mediastinal lymphadenopathy. 8. Additional findings as above. Hospital Course (1) Sepsis: Severe sepsis Pneumonia -necrotizing/MRSA pneumonia Possible aspiration Failed outpatient treatment H/O non compliance with speech recommendations --CTA:No evidence of pulmonary embolism. Prominent left lower lobe airspace opacity with thick rim pneumatocele likely representing a developing pulmonary abscess. Mediastinal lymphadenopathy is likely reactive. --Positive MRSA screen -Repeat CT: Extensive left basilar consolidation with foci of cavitation as above. Consolidative change has increased as compared to 01/23/2021. Question a 3.4 x 2.7 cm pocket of fluid within the consolidated left lower lobe. Developing abscess is not excluded. --Continue supplemental oxygen as needed Sputum culture MRSA Blood cultures negative Discussed with ID on 02/06/21 continue Vancomycin--Last day of treatment 02/12/21 as per ID Needs Pulmonology follow up upon discharge at [facility] Discussed with Pulm regarding repeat CT findings: Recommends No Intervention. Advised to continue current treatment and repeat CT chest in 3-4 Months. Consider rehab placement if family agrees/Patient qualifies Case management to help with discharge planning Patient refuses rehab placement Completed IV antibiotic course today (02/12) Plan to discharge home with home health today Hyponatremia History of hyponatremia as well Could have underlying SIADH Sodium levels improved Nephrology consulted, recommend BMP in 1 week Hypokalemia Replace as needed Hemoptysis secondary to above in the setting of dual antiplatelet therapy Plavix held 2 units PRBC ordered Hg improved to 10 Monitor Needs to discuss further with healthcare providers, if/when Plavix should be restarted Volume Overload Possible acute diastolic heart failure On fluid restriction Monitor volume status closely Leg edema improving Continue lasix 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 Patient decannulated the inner tracheostomy tube in the ER replaced by ED Continue supplemental oxygen as needed Monitor Dysphagia VFSS in 2019 showed silent aspiration with trapping in the vallecula H/O Non compliance Speech eval Aspiration precautions H/O CAD, PVD S/P stent Troponin elevation secondary to illness DD:demand ischemia in the setting of sepsis and pneumonia ECHO showed mild hypokinesis of mid apical anterior septal No acute EKG changes Appreciate cardiology input Echo findings consistent with prior history of [place] as per cards Troponin trending down hold Plavix HTN Seen by cardiology during her prolonged hospital stay, her metoprolol tartrate was changed to Toprol succinate (50 BID) Also during her hospital stay, she was started on amlodipine and hydralazine to control blood pressure Recommend to check blood pressure as outpatient, and adjust medications as needed COPD Pulmonary hypertension as per records 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 use Nebs PRN 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 The encounter with the patient was in whole, or in part, for the following medical condition, which is the primary reason for home health care (list medical condition): I certify that, based on my findings, the following services are medically necessary home health services: My clinical findings support the need for the above services because: PT Assessment for Endurance / Balance / Strength Skilled Nsg Assessment Further, I certify that my clinical findings support that this patient is homebound (i.e. absences from home require considerable and taxing effort and are for medical reasons or restorationist services or infrequently or of short duration when for other reasons) because: Certification for Home Health Services: Based on the above findings, I certify that this patient is confined to the home and needs intermittent penitentiary care, physical therapy and/or speech therapy or continues to need occupational therapy. The patient is under my care, and I have initiated the establishment of the plan of care. This patient will be followed by a physician who will periodically review the plan of care. Total Time Total Time Spent Total Time Spent (In Minutes): 50 Discharge Plan Discharge Items Patient Disposition: Home - Home Health Services Reason For Visit: SEPSIS, LOW BP, TROP ELEV Discharge Diagnosis: Sepsis Necrotizing/MRSA pneumonia Hemoptysis Hyponatremia Activity: Per Instructions section Non-emergency contact: Primary Care Provider and Kettle [facility] Call non-emergency contact if: you have any medication questions Follow-up/Referrals: [facility] [Other] (The Pulmonary office will call you with a hospital follow up appointment. ) Paola Wilson MD [Primary Care Provider] - (Date & Time 02/17/2021 3:00 PM Provider Paola Wilson MD Department Family Medicine [facility] ) Edd Anaya MD [Physician] - (Date & Time 03/26/2021 12:40 PM Provider Edd Anaya MD Department Infectious Disease [facility] ) Dietitian Info: Minced and moist Diet: Regular Fluids: 1200ml (5 cups) Addtl Attending Provider Instructions: You will need to follow-up closely with pulmonary medicine, infectious disease and your family physician. For now do not take Plavix, discuss this with your healthcare providers if/when you should restart this medication. Your metoprolol tartrate was changed to metoprolol succinate and also dose was increased per cardiology recommendations. In addition, you were started on amlodipine and hydralazine, to help control your blood pressure. Please discuss these medications with your healthcare providers. It was also noted that your sodium was on the lower side while you were in the hospital, it is recommended that you have a blood work done, BMP, within 1 week. Pending Studies at Discharge: No Stand-Alone Forms: My [facility] [employer], Smoking Cessation Medications and DC Order Prescriptions: New metoprolol succinate 50 mg Tablet Extended Release 24 Hr 50 mg PO BID Qty: 60 RF: 0 amlodipine [Norvasc] 5 mg Tablet 5 mg PO QAM Qty: 30 RF: 0 hydralazine 25 mg Tablet 25 mg PO TID Qty: 90 RF: 0 potassium chloride 20 mEq Packet 20 meq PO BID17 Qty: 30 RF: 0 dextromethorphan-guaifenesin 10-100 mg/5 mL Syrup 5 ml PO Q6H Qty: 237 RF: 0 hydrocodone-acetaminophen 5-325 mg Tablet 1 tab PO BID PRN (Reason: pain) Qty: 5 RF: 0 Continued buspirone 5 mg tablet 5 mg PO BID PRN (Reason: Anxiety) RF: 0 atorvastatin 20 mg tablet 20 mg PO HS RF: 0 venlafaxine 75 mg tablet 75 mg PO BID RF: 0 furosemide [Lasix] 20 mg Tablet 20 mg PO DAILY RF: 0 (DME) Saline Sensitive Eyes Drops MISCELLANEOUS RF: 0 levothyroxine 50 mcg tablet 50 mcg PO DAILYBB RF: 0 sodium chloride [Saline Mist] 0.65 % Aerosol,[place] 2 spray NA BID Qty: 1 RF: 0 sennosides [senna] 8.6 mg Tablet 8.6 mg PO DAILY PRN (Reason: Constipation) RF: 0 acetaminophen [Tylenol] 325 mg Tablet 650 mg PO DIRECTED PRN (Reason: FEVER/PAIN) RF: 0 albuterol sulfate 2.5 mg /3 mL (0.083 %) solution for nebulization 2.5 mg inhalation Q6H PRN (Reason: Shortness Of Breath) RF: 0 fexofenadine [Marylou] 180 mg Tablet 180 mg PO DAILY RF: 0 aspirin 81 mg Tablet,Delayed Release (Dr/Ec) 81 mg PO DAILY RF: 0 triamcinolone acetonide 0.1 % Cream 1 applic TOPICAL DIRECTED PRN (Reason: Skin Irritation) RF: 0 ferrous sulfate 325 mg (65 mg iron) tablet 325 mg PO BID RF: 0 albuterol sulfate 90 mcg/actuation HFA aerosol inhaler 2 puff INHALATION Q4 PRN (Reason: Shortness Of Breath) RF: 0 fluticasone propionate [Flonase] 50 mcg/actuation [place],Suspension 2 spray INTRANASAL DAILY RF: 0 Discontinued clopidogrel 75 mg tablet 75 mg PO QAM RF: 0 metoprolol tartrate 25 mg Tablet 25 mg PO BID RF: 0 amoxicillin-pot clavulanate 875-125 mg tablet 1 tab PO BID RF: 0 Discharge Orders: Discharge Order (Routine); Ordered 02/12/21 Ordered By: Rome Matthews Admission Data Admit Date/Time: 01/23/21 02:19 Attending Provider: Rome Matthews Admit Provider: Hossein Veliz Primary Care Provider: Paola Wilson Other Providers: Hossein Veliz ; Flavio Tran ; Anurag Mohan ; Jeffrey Zabala ; Noah Gale ; Evi Smith ; Kenroy Yang ; Mainor Tran ; Aníbal Rowe ; dEd Anaya ; Kunal Anaya I. ; Prashanth Robbins II ; Shi Jeter ; David Casarez ; Murray Flores ; Cam Ford ; Hardeep Espino ; Kyara Gomez ; [facility] ; [facility]
== END 2021-02-12 14:25 | disposition home health service (06) | DRG 871 ==
LOC: ED 20:37 → SUATTDRO 01-23 02:19 → EDINP 01-23 02:19 → 1E 01-23 04:29 → 3W 01-26 18:33

== ENCOUNTER 2024-10-13 14:13 | Inpatient (IN) ==
[2024-10-13] MEDS: ALBUT/IPRATROP 3MG/0.5MG NEB 3 ML VIAL NEB STA (14:33)
[2024-10-13] MEDS: SODIUM CHLORIDE 0.9% 500 ML IV SCH (14:34)
[2024-10-13 14:43] LABS: Hematocrit (blood only) 34.6 % (37.0-47.0); Hemoglobin 11.7 g/dl (12.0-16.0); Immature Granulocytes # (auto) 0.02 K/uL (0.01-0.20); Immature Granulocytes % (auto) 0.2 %; Mean Corpuscular Hemoglobin 31.0 pg (25.0-34.0); Mean Corpuscular Volume 91.8 fL (80.0-100.0); Platelet Count 328 K/uL (130-400); RDW Standard Deviation 41.1 fL (36.4-46.3); Red Blood Count 3.77 M/uL (4.20-5.40); White Blood Count 8.39 K/ul (4.8-10.8)
--- NOTE | 2024-10-13 15:06 | XRay Report ---
XR chest 1V portable CLINICAL HISTORY: weakness COMPARISON STUDY: Chest CT December 17, 2022. Chest radiograph July 12, 2024. FINDINGS: Tracheostomy tube is in place. Elevation of the left hemidiaphragm is unchanged. There is n o pneumothorax or pleural effusion. Left midlung densities are similar to prior exams and favor scarr ing. There is no consolidation to suggest pneumonia. There is no evidence for pulmonary edema. IMPRESSION: No acute cardiopulmonary findings. No significant change in appearance of the chest. ACT 112: Negative or not required by law. Electronically signed by: Ren Castanon M.D. 10/13/2024 3:05 PM
[2024-10-13 15:07] LABS: Alanine Aminotransferase 15.0 U/L (7-52); Albumin Globulin Ratio 0.8 (0.9-2); Alkaline Phosphatase 69.0 U/L (34-104); Anion Gap 10.0 (3-11); Bilirubin,Total 0.4 mg/dl (0.2-1.0); Blood Urea Nitrogen 23.0 mg/dl (6-23); Calcium 9.2 mg/dl (8.6-10.3); Carbon Dioxide 27.0 mmol/L (21-32); Chloride 96.0 mmol/L (98-107); Creatinine Clr Calc Pharmacy 50.5 ml/min; Globulin 4.2 gm/dl (2.5-4.0); Glucose 122.0 mg/dl (70-99(Fasting)); Magnesium 2.1 mg/dl (1.7-2.4); Potassium 3.9 mmol/L (3.5-5.1); Sodium 133.0 mmol/L (136-145); Total Protein 7.6 gm/dl (6.0-8.3)
[2024-10-13 15:19] LABS: Thyroid Stimulating Hormone 0.84 uIu/ml (0.300-4.500)
--- NOTE | 2024-10-13 15:30 | Emergency Department Note ---
Impression & Plan Palpitations, Elevated troponin, Hypoxia, Hypotension, Acute UTI, Episode of shaking ED Provider Note NAME: BHAVNA CAT AGE: 69 SEX: F : 1955 ARRIVES VIA: Ambulance INFORMANT: [Patient] ED PROVIDER(S): [Anurag Fry MD] CHIEF COMPLAINT: TIA symptoms HISTORY OF PRESENT ILLNESS: The patient is a 69-year-old female whose had 1.5 weeks of symptoms. She feels the heart raced at times and her left arm shakes. The episodes last seconds at a time. No loss of consciousness. She has not fallen. The patient states that she had a stroke earlier this year and she was concerned about recurrence. The patient called the ambulance today because the episode woke her from sleep and seemed more severe. Patient does have a tracheostomy, she has COPD. The patient denies any increased respiratory congestion or cough. No fever, no vomiting or diarrhea. She currently, has no symptoms. PMHx/PSHx/Social Hx: See Below PHYSICAL EXAM: GENERAL: Patient is in no acute distress. Quite thin and frail. HEENT: No acute trauma, normocephalic atraumatic, mucous membranes dry, no nasal congestion. NECK: No stridor, no adenopathy, no meningismus, trachea is midline. Tracheostomy present. LUNGS: Diminished breath sounds with wheezing and crackles bilaterally, worse on the left. HEART: Without murmurs gallops or rubs, irregular rhythm with a normal rate. Heart tones distant. ABDOMEN: Soft, nontender, no peritonitis. EXTREMITIES: No cyanosis, full range of motion of all the joints without pain or difficulty. NEUROLOGIC: Oriented x 3, no acute motor or sensory deficits, no focal weakness. SKIN: No jaundice, no diaphoresis. DIFFERENTIAL DIAGNOSIS: Bronchitis or pneumonia, dysrhythmia, CVA, dehydration, UTI, seizure, among others. EMERGENCY DEPARTMENT PROCEDURES: MEDICAL DECISION MAKING: There is no leukocytosis. A very mild anemia was seen. There was a normal platelet count. No renal failure or significant electrolyte abnormality. No concerning liver enzyme elevation. The patient appears to be in a euthyroid state. ECG shows a sinus rhythm with ectopy. There is no ST elevation. Cardiac enzyme testing x 1 is somewhat elevated however, looking back at previous laboratory results, the troponin has been elevated slightly with recent testing. Urinalysis does suggest infection. Chest x-ray shows some chronic change, no focal pneumonia. Brain CT shows no acute bleed or mass effect. On exam, patient was at times hypoxic without O2 supplementation. Upon arrival, she was borderline hypertensive. She had no focal neurologic findings. She was not febrile. Patient was given IV ceftriaxone for the UTI. She was given a DuoNeb, she received a liter of IV saline. The patient's blood pressure has improved, she seems more comfortable. I do think she requires a hospital stay. She is hypotensive, hypoxic, she has a UTI and presents with palpitations and shaking. Further care inpatient is required. I spoke with the patient and case management. The on-call hospitalist was consulted. Prior/Outside records/notes reviewed: Today's EMS notes describing her presentation and transport to this hospital. ECG per my interpretation: Indication was palpitations. The ECG shows a sinus rhythm with PVCs and PACs. The rate is 72. There is an old septal infarct. LVH is present. There are some inverted T waves seen in the high lateral leads. No acute ST elevation. QTc was 494. Compared to an ECG from 14 Jul 2024, ectopy is now present. Continuous Cardiac Monitoring per my interpretation: An order was placed for continuous cardiac monitoring. The monitor shows a rate of 88 with sinus rhythm with PVCs and PACs. Imaging/x-ray results per my interpretation: There are some chronic lung changes, no CHF or focal pneumonia. Chronic Medical/Social conditions affecting care: Advanced age. Care/Management discussed with: Case management, the on-call hospitalist. Level of care consideration(s): After review of the information above and other included data: --I believe the patient requires escalation of care to admission Critical Care Note: I have personally spent 47 minutes of critical care time in the direct management of this patient. This includes bedside care, interpretation of diagnostic studies, and testing, discussion with consultants, patient, and family members, and other required patient management activities. This 47 minutes is in excess of all separately billable procedures. DISPOSITION: Admission Past Med/Surg History Problem List (Updated 10/13/24 @ 17:13 by Anurag Fry MD) Episode of shaking (Acute) Acute UTI (Acute) Hypotension (Acute) Hypoxia (Acute) Elevated troponin (Acute) Palpitations (Acute) Stroke-like symptoms (Acute) Leg pain, right Peripheral arterial disease (Acute) Subclavian artery stenosis, right CAD (coronary artery disease) Hemoptysis Tracheostomy dependent (Acute) Pneumonia Sepsis Elevated troponin (Acute) Community acquired pneumonia (Acute) Post-nasal drip Carotid stenosis (Acute) Hyponatremia (Chronic) PEG (percutaneous endoscopic gastrostomy) adjustment/replacement/removal Dysphagia Medical History Femoral artery occlusion DVT prophylaxis Hypothyroidism Hypoxia Mucus plugging of bronchi Tracheostomy complication Tracheitis Anxiety Head and neck cancer History of respiratory failure COPD (chronic obstructive pulmonary disease) Tracheostomy in place Herniated disc LOWER BACK Carpal tunnel syndrome Laryngeal cancer S/P TRACH + PEG TUBE PLACEMENT, RADIATION CAD (coronary artery disease) 2008 - LAD stent 2016 - LITTLE to mid LAD Hypertension Surgical History History of partial gastrectomy due to fistula from PEG tube History of tracheostomy History of laryngoscopy W/ BIOPSY History of heart artery stent S/P percutaneous endoscopic gastrostomy (PEG) tube placement History of bronchoscopy History of tracheostomy History of cardiac cath 2008 - [place] - [facility] - 2 STENTS PLACED - FOLLOWS W/ DR. MONTENEGRO 2016 - ABN STRESS TEST - [facility] - NO STENTS/ANGIOPLASTY History of tonsillectomy and adenoidectomy Family History Daughter Family history of reaction to anesthesia SLOW TO WAKE Father Family hx of colon cancer Other Colon cancer No pertinent family history Social History Smoking Status: Former smoker Tobacco Type: Cigarettes Cigarettes Per Day: 1-2; Second Hand Exposure: Yes; Do You Dip or Chew Tobacco: No; Hx Alcohol Use: Yes Alcohol type: beer and wine Hx Substance Use: No Preferred Language: Khmer Communication Ability: Effective Body Cleaner Required: No Beliefs That Will Affect Care: None marital status: Current Living Situation: Alone Current Living Situation Comment: Pt reports family lives close/able to help current occupational status: retired Feels Safe at Home: Yes Allergies Allergies Allergy/AdvReac Type Severity Reaction Status Date / Time bee venom protein (honey bee) Allergy Severe Anaphylaxis Verified 10/13/24 16:26 latex Allergy Intermediate Rash Verified 10/13/24 16:26 oxycodone [From Percocet] Allergy Intermediate PER Verified 10/13/24 16:26 GMG--GETS LOOPY. Home Meds Home Medications Medication Instructions Recorded Confirmed furosemide 20 mg tablet (Lasix) 20 mg PO QAM 03/01/19 10/13/24 soft lens rinse,store solution 03/01/19 03/24/21 (Saline Sensitive Eyes drops) buspirone 5 mg tablet 5 mg PO BID PRN Anxiety 10/31/19 10/13/24 venlafaxine 75 mg tablet 75 mg PO BID 10/31/19 10/13/24 albuterol sulfate 90 mcg/actuation 2 puff inhalation Q4H PRN 01/23/21 10/13/24 aerosol inhaler Shortness Of Breath aspirin 81 mg tablet,delayed 81 mg PO QAM 01/23/21 10/13/24 release fluticasone propionate 50 2 spray intranasal DAILY PRN 01/23/21 10/13/24 mcg/actuation nasal Congestion spray,suspension carbamide peroxide 6.5 % ear drops 5 drp otic (ear) DAILY PRN 03/24/21 10/13/24 (Debrox) NEEDED sodium chloride 0.65 % nasal spray 2 spray NA DIRECTED PRN 03/24/21 10/13/24 aerosol (Saline Mist) Congestion budesonide 160 mcg-glycopyr 9 2 inh inhalation AMHS 12/17/22 10/13/24 mcg-formot 4.8 mcg/actuation HFA inhaler (Breztri Aerosphere) metoprolol succinate 50 mg 50 mg PO HS 02/18/23 10/13/24 tablet,extended release 24 hr levothyroxine 75 mcg tablet 75 mcg PO DAILYBB 07/12/24 10/13/24 acetaminophen 160 mg/5 mL (5 mL) 650 mg PO Q6H PRN pain/fever 10/13/24 10/13/24 oral solution baclofen 10 mg tablet 10 mg PO BID 10/13/24 10/13/24 cyanocobalamin (vitamin B-12) 500 500 mcg PO DAILY 10/13/24 10/13/24 mcg tablet (Vitamin B-12) fexofenadine 180 mg tablet 180 mg PO DAILY PRN Allergy 10/13/24 10/13/24 Symptoms fluocinolone 0.01 % topical body 1 applic topical DAILY PRN ITCHY 10/13/24 10/13/24 oil EARS lidocaine 4 % topical patch 1 patch topical DAILY PRN Pain 10/13/24 10/13/24 metoprolol succinate 50 mg 75 mg PO QAM 10/13/24 10/13/24 tablet,extended release 24 hr sodium chloride 3 % for 3 ml inhalation TID 10/13/24 10/13/24 nebulization Previous Rx's Medication Instructions Recorded atorvastatin 40 mg tablet 40 mg PO QAM #30 tabs 07/14/24 clopidogrel 75 mg tablet 75 mg PO QAM #30 tabs 07/14/24 Results & Data (ED) Vital Signs Vital Signs - 24 hr 10/13/24 14:04 10/13/24 14:23 10/13/24 14:24 Temperature 36.6 C Temperature Source Oral Pulse Rate 100 H 93 H Pulse Rate from SpO2 Sensor Respiratory Rate 12 Blood Pressure 113/73 103/45 L Blood Pressure Mean 86 73 Pulse Oximetry 98 Oxygen Delivery Method Room Air Sepsis Recent Fever Within 48 Hours No Sepsis New/Unexplained Change in Mental Status N/A Sepsis Action Taken by Nursing No Action Required 10/13/24 14:25 10/13/24 14:30 10/13/24 14:33 Temperature Temperature Source Pulse Rate 88 Pulse Rate from SpO2 Sensor 81 Respiratory Rate 23 Blood Pressure 91/54 L Blood Pressure Mean 71 Pulse Oximetry 91 85 L Oxygen Delivery Method Sepsis Recent Fever Within 48 Hours Sepsis New/Unexplained Change in Mental Status Sepsis Action Taken by Nursing 10/13/24 14:33 10/13/24 14:33 10/13/24 14:42 Temperature Temperature Source Pulse Rate 88 Pulse Rate from SpO2 Sensor Respiratory Rate 30 H Blood Pressure 91/54 L 91/54 L Blood Pressure Mean 71 71 Pulse Oximetry Oxygen Delivery Method Sepsis Recent Fever Within 48 Hours Sepsis New/Unexplained Change in Mental Status Sepsis Action Taken by Nursing 10/13/24 15:00 10/13/24 15:00 10/13/24 15:27 Temperature Temperature Source Pulse Rate 93 H Pulse Rate from SpO2 Sensor 94 H Respiratory Rate 22 Blood Pressure 98/51 L 98/51 L Blood Pressure Mean 55 55 Pulse Oximetry 93 Oxygen Delivery Method Sepsis Recent Fever Within 48 Hours Sepsis New/Unexplained Change in Mental Status Sepsis Action Taken by Nursing 10/13/24 15:30 10/13/24 15:30 10/13/24 15:48 Temperature Temperature Source Pulse Rate 94 H 93 H Pulse Rate from SpO2 Sensor 92 H 94 H Respiratory Rate 21 24 Blood Pressure 94/46 L Blood Pressure Mean 77 Pulse Oximetry 84 L 84 L Oxygen Delivery Method Sepsis Recent Fever Within 48 Hours Sepsis New/Unexplained Change in Mental Status Sepsis Action Taken by Nursing 10/13/24 16:01 10/13/24 16:01 10/13/24 16:01 Temperature Temperature Source Pulse Rate Pulse Rate from SpO2 Sensor Respiratory Rate Blood Pressure 150/56 H 150/56 H 150/56 H Blood Pressure Mean 100 100 100 Pulse Oximetry Oxygen Delivery Method Sepsis Recent Fever Within 48 Hours Sepsis New/Unexplained Change in Mental Status Sepsis Action Taken by Nursing 10/13/24 16:03 10/13/24 16:12 10/13/24 16:21 Temperature Temperature Source Pulse Rate 97 H 97 H 93 H Pulse Rate from SpO2 Sensor 89 93 H Respiratory Rate 25 H 24 24 Blood Pressure Blood Pressure Mean Pulse Oximetry 97 92 Oxygen Delivery Method Sepsis Recent Fever Within 48 Hours Sepsis New/Unexplained Change in Mental Status Sepsis Action Taken by Nursing 10/13/24 16:33 10/13/24 16:42 Temperature Temperature Source Pulse Rate 88 84 Pulse Rate from SpO2 Sensor 89 84 Respiratory Rate 22 17 Blood Pressure 131/59 L Blood Pressure Mean 83 Pulse Oximetry 97 97 Oxygen Delivery Method Sepsis Recent Fever Within 48 Hours Sepsis New/Unexplained Change in Mental Status Sepsis Action Taken by Jail Medications Current Medication List: was personally reviewed by me Laboratory Data Attestation: I reviewed the patient's lab results. 10/13/24 14:20 10/13/24 14:20 Lab Results 10/13/24 10/13/24 Range/Units 14:20 15:16 WBC 8.39 (4.8-10.8) K/ul RBC 3.77 L (4.20-5.40) M/uL Hgb 11.7 L (12.0-16.0) g/dl Hct 34.6 L (37.0-47.0) % MCV 91.8 (80.0-100.0) fL MCH 31.0 (25.0-34.0) pg MCHC 33.8 (32.0-36.0) g/dL RDW Std Deviation 41.1 (36.4-46.3) fL RDW Coeff of Jair 12.3 (11.5-14.5) % Plt Count 328 (130-400) K/uL MPV 9.6 (9.4-12.4) fL Immature Gran % (Auto) 0.2 % Neut % (Auto) 76.3 % Lymph % (Auto) 11.4 % [place] % (Auto) 10.4 % Eos % (Auto) 1.2 % Baso % (Auto) 0.5 % Neut # (Auto) 6.40 (1.40-6.50) K/uL Lymph # (Auto) 0.96 L (1.20-3.40) K/uL [place] # (Auto) 0.87 H (0.11-0.59) K/uL Eos # (Auto) 0.10 (0.00-0.50) K/uL Baso # (Auto) 0.04 (0.00-0.20) K/uL Immature Gran # (Auto) 0.02 (0.01-0.20) K/uL Sodium 133 L (136-145) mmol/L Potassium 3.9 (3.5-5.1) mmol/L Chloride 96 L (98-107) mmol/L Carbon Dioxide 27 (21-32) mmol/L Anion Gap 10 (3-11) BUN 23 (6-23) mg/dl Creatinine 0.75 (0.6-1.2) mg/dl Est Cr Clr Drug Dosing 50.5 ml/min eGFR 85.06 BUN/Creatinine Ratio 30.7 H (10-20) Glucose 122 H (70-99(Fasting)) mg/dl Calcium 9.2 (8.6-10.3) mg/dl Magnesium 2.1 (1.7-2.4) mg/dl Total Bilirubin 0.4 (0.2-1.0) mg/dl AST 24 (13-39) U/L ALT 15 (7-52) U/L Alkaline Phosphatase 69 (34-104) U/L Troponin I High Sens 20.8 H (0-14) pg/ml Total Protein 7.6 (6.0-8.3) gm/dl Albumin 3.4 (3.4-5.0) gm/dl Globulin 4.2 H (2.5-4.0) gm/dl Albumin/Globulin Ratio 0.8 L (0.9-2) TSH 0.840 (0.300-4.500) uIu/ml Urine Color Yellow Urine Appearance Cloudy A (Clear) Urine pH 5.5 (4.5-7.5) Ur Specific [place] 1.020 (1.000-1.030) Urine Protein 2+ H (Negative) Urine Glucose (UA) Negative (Negative) Urine Ketones Trace H (Negative) Urine Blood Negative (Negative) Urine Nitrite Negative (Negative) Urine Bilirubin Negative (Negative) Urine Urobilinogen Negative (Negative) Ur Leukocyte Esterase 2+ H (Negative) Urine WBC (Auto) >50 H (0-5) /hpf Urine RBC (Auto) 0-2 (0-2) /hpf U Hyaline Cast (Auto) 6-10 H (0-2) /lpf U Epithel Cells (Auto) 11-20 H (0-2) /hpf Urine Bacteria (Auto) 4+ H (None Seen) Hyaline Casts Present A (None Presnt) /lpf Urine Comment Administered Medications Discontinued Medications Albuterol (Albut/Ipratrop 3mg/0.5mg Neb 3 Ml Vial) 3 ml NEB NOW STA; Protocol Stop: 10/13/24 14:26 Last Admin: 10/13/24 14:33 Dose: 3 ml Documented By: ARS Sodium Chloride (Nss) 500 mls @ 999 mls/hr IV .Q31M JUANY Stop: 10/13/24 15:00 Last Infusion: 10/13/24 15:13 Dose: Infused Documented By: Admin: 10/13/24 14:34 Dose: 999 mls/hr Documented By: ARS Ceftriaxone Sodium (Rocephin) 2,000 mg in 50 mls @ 100 mls/hr IV NOW STA Stop: 10/13/24 16:27 Last Admin: 10/13/24 16:06 Dose: 100 mls/hr Documented By: NILE Imaging Data Radiologist's Impression: Chest X-Ray 10/13/24 14:25 XR chest 1V portable CLINICAL HISTORY: weakness COMPARISON STUDY: Chest CT December 17, 2022. Chest radiograph July 12, 2024. FINDINGS: Tracheostomy tube is in place. Elevation of the left hemidiaphragm is unchanged. There is no pneumothorax or pleural effusion. Left midlung densities are similar to prior exams and favor scarring. There is no consolidation to suggest pneumonia. There is no evidence for pulmonary edema. IMPRESSION: No acute cardiopulmonary findings. No significant change in appearance of the chest. ACT 112: Negative or not required by law. Electronically signed by: Ren Castanon M.D. 10/13/2024 3:[address] 10/13/24 14:25 CT head/brain wo con CLINICAL HISTORY: 69 years-old Female with tia symptoms. Acute stroke like symptoms TECHNIQUE: Multiple axial CT images of the head were obtained without contrast. A dose lowering technique was utilized adhering to the principles of ALARA. CT DOSE: 625.8 mGy.cm COMPARISON: 07/12/2024 FINDINGS: No acute intracranial hemorrhage, midline shift, intracranial mass, hydrocephalus, territorial ischemia or abnormal extra-axial collection. Involutional changes with mild white matter hypodensities favoring chronic microvascular ischemic disease. The calvarium is intact. Prior bilateral lens repair. The paranasal sinuses, mastoid air cells, and middle ear cavities are clear. IMPRESSION: No acute intracranial abnormality identified. ACT 112: Negative or not required by law. The above report was generated using voice recognition software. It may contain grammatical, syntax or spelling errors. Electronically signed by: Cristopher Tai M.D. 10/13/2024 3:43 PM Discharge Plan Visit Data Chief Complaint: TIA Symptoms Stated Complaint: ILLNESS ED Provider: Anruag Fry Discharge Problem: Palpitations, Elevated troponin, Hypoxia, Hypotension, Acute UTI, Episode of shaking Patient Disposition: Admitted As Inpatient Condition: Fair Forms Stand Alone Forms: [facility] Prescriptions Prescriptions: No Action buspirone 5 mg tablet 5 mg PO BID PRN (Reason: Anxiety) venlafaxine 75 mg tablet 75 mg PO BID Rx Instructions: take with food furosemide [Lasix] 20 mg Tablet 20 mg PO QAM (DME) Saline Sensitive Eyes Drops MISCELLANEOUS Rx Instructions: 2 drops daily as needed Debrox 6.5 % Drops 5 drp OTIC (EAR) DAILY PRN (Reason: NEEDED) Saline Mist 0.65 % aerosol,spray 2 spray NA DIRECTED PRN (Reason: Congestion) Breztri Aerosphere 160-9-4.8 mcg/actuation HFA aerosol inhaler 2 inh INHALATION AMHS aspirin 81 mg Tablet,Delayed Release (Dr/Ec) 81 mg PO QAM albuterol sulfate 90 mcg/actuation HFA aerosol inhaler 2 puff INHALATION Q4H PRN (Reason: Shortness Of Breath) fluticasone propionate 50 mcg/actuation [place],Suspension 2 spray INTRANASAL DAILY PRN (Reason: Congestion) metoprolol succinate 50 mg tablet extended release 24 hr 50 mg PO HS levothyroxine 75 mcg tablet 75 mcg PO DAILYBB atorvastatin 40 mg Tablet 40 mg PO QAM Qty: 30 0RF clopidogrel 75 mg Tablet 75 mg PO QAM Qty: 30 0RF lidocaine 4 % Adhesive Patch,Medicated 1 patch TOPICAL DAILY PRN (Reason: Pain) Rx Instructions: ON FOR 12 HR. THEN REMOVE metoprolol succinate 50 mg Tablet Extended Release 24 Hr 75 mg PO QAM sodium chloride 3 % Solution For Nebulization 3 ml INHALATION TID fexofenadine [Marylou] 180 mg Tablet 180 mg PO DAILY PRN (Reason: Allergy Symptoms) cyanocobalamin (vitamin B-12) [Vitamin B-12] 500 mcg Tablet 500 mcg PO DAILY baclofen 10 mg Tablet 10 mg PO BID fluocinolone 0.01 % Oil 1 applic TOPICAL DAILY PRN (Reason: ITCHY EARS) acetaminophen 160 mg/5 mL (5 mL) Solution 650 mg PO Q6H PRN (Reason: pain/fever) Referrals Referrals: Paola Wilson MD [Primary Care Provider] - Discharge Problem: Hypotension Qualifiers: Hypotension type: unspecified hypotension type Qualified Code(s): I95.9 - Hypotension, unspecified
--- NOTE | 2024-10-13 15:45 | CT Scan Report ---
CT head/brain wo con CLINICAL HISTORY: 69 years-old Female with tia symptoms. Acute stroke like symptoms TECHNIQUE: Multiple axial CT images of the head were obtained without contrast. A dose lowering tech nique was utilized adhering to the principles of ALARA. CT DOSE: 625.8 mGy.cm COMPARISON: 07/12/2024 FINDINGS: No acute intracranial hemorrhage, midline shift, intracranial mass, hydrocephalus, territorial ischem ia or abnormal extra-axial collection. Involutional changes with mild white matter hypodensities favo ring chronic microvascular ischemic disease. The calvarium is intact. Prior bilateral lens repair. The paranasal sinuses, mastoid air cells, and m iddle ear cavities are clear. IMPRESSION: No acute intracranial abnormality identified. ACT 112: Negative or not required by law. The above report was generated using voice recognition software. It may contain grammatical, syntax o r spelling errors. Electronically signed by: Cristopher Tai M.D. 10/13/2024 3:43 PM
[2024-10-13 15:52] LABS: Appearance Urine Cloudy (Clear); Bacteria Urine Automated 4+ (None Seen); Glucose Urine UA Negative (Negative); RBC Urine Automated 0-2 /hpf (0-2); WBC Urine Automated >50 /hpf (0-5)
[2024-10-13] MEDS: cefTRIAXone SODIUM 2,000 MG/50 ML BAG IV STA (16:06)
--- NOTE | 2024-10-13 16:43 | History & Physical Report ---
Date of Service October 13, 2024 Assessment & Plan (1) Acute UTI: (2) Episode of shaking: (3) Palpitations: (4) CAD (coronary artery disease): Plan 69-year-old female with PMH Chronic hyponatremia, Hypothyroidism, COPD, history of laryngeal cancer s/p resection and radiation with chronic tracheostomy in place, Subclavian artery stenosis, CAD s/p PCI(in 2018), HTN, Bilateral carotid stenosis, History of MRSA pneumonia, recent admission for stroke like symptoms presented today with due to palpitation, worsening of shaking of her whole body and increase in frequency of urination for 1 month. She is being admitted for management of UTI and further workup for palpitation and on and off chest pain. #UTI -Increase in frequency of urination for 1 month. Denies dysuria, lower abdominal pain, fever or flank pain -Urinalysis suggestive of UTI -Urine sent for culture. F/U with C/S reports -Ceftriaxone 2gm q24hr #Coronary Artery Disease s/p PCI #Chest pain with palpitation -On and Off chest pain for around month. But currently asymptomatic -Continue Aspirin, clopidogrel and Statin - Troponin 20 on presentation, on repeat 12 -Chest Xray with no acute findings -EKG with NSR and ST elevation in inferior leads; Non specific change in ST segment in lateral leads -Will continue to monitor on Telemetry -Continue aspirin , clopidogrel and statin -Pending lipid panel, TSH and Hba1c #Chronic bilateral shoulder pain with headache -Lidocaine patch and Tylenol as needed #MDD with Anxiety -Continue Buspirone and Venlafaxine DVT prophylaxis: Lovenox Code : Full Dispo: Med/Surg with Telemetry History of Present Illness Primary Care Provider: Paola Wilson MD 69-year-old female with PMH Chronic hyponatremia, Hypothyroidism, COPD, history of laryngeal cancer s/p resection and radiation with chronic tracheostomy in place, Subclavian artery stenosis, CAD s/p PCI(in 2018), HTN, Bilateral carotid stenosis, History of MRSA pneumonia, recent admission for stroke like symptoms presented today with due to palpitation, worsening of shaking of her whole body and increase in frequency of urination for 1 month. Fluttering of her heart on and off for 1 year. Patient is following with the cardiology . Last followup was Wednesday with no any acute concerns This morning she was short of breath. Usually she has phlegm in her tracheostomy tube. She gets short of breath until her phlegm clears up. She has shaking of her body for some time, but today patient reports severe shaking of her whole body which prompted patient to come to ER Has chest pain on and off. She also feels heavy in her chest as she is not able to expectorate her phlegm out properly. Patient denies dizziness, fever, feeling of passing out, nausea, vomiting diarrhea or headache. She has been complaining of increased frequency of urination, for a month. But no burning on peeing , or lower abdominal pain She lives by herself. Her daughter lives 3 miles away and checks her daily She is a full code Allergies Allergy/AdvReac Type Severity Reaction Status Date / Time bee venom protein (honey bee) Allergy Severe Anaphylaxis Verified 10/13/24 16:26 latex Allergy Intermediate Rash Verified 10/13/24 16:26 oxycodone [From Percocet] Allergy Intermediate PER Verified 10/13/24 16:26 GMG--GETS LOOPY. Home Medications Medication Instructions Recorded Confirmed Type furosemide 20 mg tablet (Lasix) 20 mg PO QAM 03/01/19 10/13/24 History soft lens rinse,store solution 03/01/19 03/24/21 History (Saline Sensitive Eyes drops) buspirone 5 mg tablet 5 mg PO BID PRN Anxiety 10/31/19 10/13/24 History venlafaxine 75 mg tablet 75 mg PO BID 10/31/19 10/13/24 History albuterol sulfate 90 mcg/actuation 2 puff inhalation Q4H PRN 01/23/21 10/13/24 History aerosol inhaler Shortness Of Breath aspirin 81 mg tablet,delayed 81 mg PO QAM 01/23/21 10/13/24 History release fluticasone propionate 50 2 spray intranasal DAILY PRN 01/23/21 10/13/24 History mcg/actuation nasal Congestion spray,suspension carbamide peroxide 6.5 % ear drops 5 drp otic (ear) DAILY PRN 03/24/21 History (Debrox) NEEDED sodium chloride 0.65 % nasal spray 2 spray NA DIRECTED PRN 03/24/21 10/13/24 History aerosol (Saline Mist) Congestion budesonide 160 mcg-glycopyr 9 2 inh inhalation AMHS 12/17/22 10/13/24 History mcg-formot 4.8 mcg/actuation HFA inhaler (Breztri Aerosphere) metoprolol succinate 50 mg 50 mg PO HS 02/18/23 10/13/24 History tablet,extended release 24 hr levothyroxine 75 mcg tablet 75 mcg PO DAILYBB 07/12/24 10/13/24 History atorvastatin 40 mg tablet 40 mg PO QAM #30 tabs 07/14/24 10/13/24 Rx clopidogrel 75 mg tablet 75 mg PO QAM #30 tabs 07/14/24 10/13/24 Rx acetaminophen 160 mg/5 mL (5 mL) 650 mg PO Q6H PRN pain/fever 10/13/24 10/13/24 History oral solution baclofen 10 mg tablet 10 mg PO BID 10/13/24 10/13/24 History cyanocobalamin (vitamin B-12) 500 500 mcg PO DAILY 10/13/24 10/13/24 History mcg tablet (Vitamin B-12) fexofenadine 180 mg tablet 180 mg PO DAILY PRN Allergy 10/13/24 10/13/24 History Symptoms fluocinolone 0.01 % topical body 1 applic topical DAILY PRN ITCHY 10/13/24 10/13/24 History oil EARS lidocaine 4 % topical patch 1 patch topical DAILY PRN Pain 10/13/24 10/13/24 History metoprolol succinate 50 mg 75 mg PO QAM 10/13/24 10/13/24 History tablet,extended release 24 hr sodium chloride 3 % for 3 ml inhalation TID 10/13/24 10/13/24 History nebulization Past Med/Surg History Problem List (Updated 10/13/24 @ 22:30 by Background Daemon) Acute UTI (Acute) Episode of shaking (Acute) Palpitations (Acute) CAD (coronary artery disease) Peripheral arterial disease (Acute) Subclavian artery stenosis, right Tracheostomy dependent (Acute) Carotid stenosis (Acute) Hyponatremia (Chronic) PEG (percutaneous endoscopic gastrostomy) adjustment/replacement/removal Dysphagia Medical History (Updated 10/13/24 @ 22:30 by Background Daemon) Femoral artery occlusion Hypothyroidism Mucus plugging of bronchi Tracheostomy complication Anxiety History of respiratory failure COPD (chronic obstructive pulmonary disease) Tracheostomy in place Herniated disc LOWER BACK Carpal tunnel syndrome Laryngeal cancer S/P TRACH + PEG TUBE PLACEMENT, RADIATION CAD (coronary artery disease) 2008 - LAD stent 2016 - LITTLE to mid LAD Hypertension Surgical History History of partial gastrectomy due to fistula from PEG tube History of tracheostomy History of laryngoscopy W/ BIOPSY History of heart artery stent S/P percutaneous endoscopic gastrostomy (PEG) tube placement History of bronchoscopy History of tracheostomy History of cardiac cath 2008 - [place] - [facility] - 2 STENTS PLACED - FOLLOWS W/ DR. MONTENEGRO 2016 - ABN STRESS TEST - [facility] - NO STENTS/ANGIOPLASTY History of tonsillectomy and adenoidectomy Family History Daughter Family history of reaction to anesthesia SLOW TO WAKE Father Family hx of colon cancer Other Colon cancer No pertinent family history Social History Smoking Status: Former smoker Tobacco Type: Cigarettes Cigarettes Per Day: 1-2; Second Hand Exposure: No; Do You Dip or Chew Tobacco: No; Tobacco Cessation Education Requested by Patient: No Hx Alcohol Use: Yes Alcohol type: beer and wine Hx Substance Use: No Preferred Language: Uzbek Communication Ability: Effective Electrophysiology Nurse Practitioner Required: No Beliefs That Will Affect Care: None marital status: Current Living Situation: Alone Current Living Situation Comment: pt reports family living close current occupational status: retired Other Information That Helps Us Care for You: No Feels Safe at Home: Yes Safety Concerns: Feels Safe At This Time Assistive Devices: None Review of Systems Review of Systems: As per HPI Physical Exam Physical Exam: Constitutional: No acute distress, PILCCOD: Negative HEENT: Atraumatic, Normocephalic, No conjunctival injection, Tracheostomy in place CVS: S1 S2 no murmur, Regular Rhythm, no LE edema Respiratory: Decreased lung sound on bilateral bases GI: Soft, Nondistended, Nontender, Normal Bowel sounds + MSK: No gross deformities noted Skin: Warm, Dry, No rashes Neuro: Alert, Oriented to TPP, No Focal deficit Psych: Mood and Affect congruent, Cooperative on exam Results & Data Results & Data Vital Signs (Past 12 Hours) Vital Signs Temp Pulse Resp BP Pulse Ox O2 Del Method 10/13/24 16:21 93 H 24 92 10/13/24 16:12 97 H 24 97 10/13/24 16:03 97 H 25 H 10/13/24 16:01 150/56 H 10/13/24 16:01 150/56 H 10/13/24 16:01 150/56 H 10/13/24 15:48 93 H 24 84 L 10/13/24 15:30 94/46 L 10/13/24 15:30 94 H 21 84 L 10/13/24 15:27 93 H 22 93 10/13/24 15:00 98/51 L 10/13/24 15:00 98/51 L 10/13/24 14:42 88 30 H 10/13/24 14:33 91/54 L 10/13/24 14:33 91/54 L 10/13/24 14:33 91/54 L 10/13/24 14:30 88 23 85 L 10/13/24 14:25 91 10/13/24 14:24 93 H 10/13/24 14:23 103/45 L 10/13/24 14:04 36.6 C 100 H 12 113/73 98 Room Air Supervising Physician Co-Signing Physician Notes Attending attestation Pt seen and examined in concert with Dr. Bell. In agreement with the documented findings as noted in the resident documentation with any exceptions or additions as noted here. Patient resting comfortably in bed reporting ongoing malaise which has been subacute for weeks, along with her dysuria symptoms, which are now well controlled. She has chronic bilateral shoulder pain which she manages with topical lidocaine patches and the occasional tylenol for breakthrough pain, as well. She reports no further shaking episodes or any chest pressure/pain. Her shortness of breath is resolved w/ respiratory clearing. She does report a mild bilateral frontal headache which has been present for some time, is similar to her baseline, and often resolves with APAP use. VS as noted. on examination, S1/S2 nl RRR no MCG. decreased breath sounds, bilateral bases. Abd NT/ND BS+ve. Significant bilateral trap tenderness to palpation. Acute urinary tract infection - UCx pending - continue ceftriaxone and encourage PO hydration. Low threshold for fluids if needed, but cautiously. Chest pain w/ palpitations - ST changes noted on EKG by Dr. العراقي w/ rapidly downtrended troponin and no current symptoms. close monitoring with low threshold for cardiology consult and repeat EKG in AM. Continue ASA, clopidogrel, statin therapy, metoprolol. Telemetry monitoring. Chronic bilateral shoulder pain with headache - restart lidocaine therapy in hospital, APAP as ordered for pain control MDD w/ anxiety - continue venlafaxine Tracheostomy in the setting of h/o head and neck cancer - continue O2 per protocol Else see resident documentation as noted. Resident Activity Tracking Resident Involvement: Resident Care Provided Care Provided: Adult Hospital Medicine
[2024-10-13] MEDS: SODIUM CHLORIDE 0.9% 500 ML IV ONE (17:28)
--- NOTE | 2024-10-13 17:46 | Electrocardiogram Report ---
Test Reason : Blood Pressure : */* mmHG Vent. Rate : 85 BPM Atrial Rate : 85 BPM P-R Int : 152 ms QRS Dur : 74 ms QT Int : 384 ms P-R-T Axes : -8 58 72 degrees QTcB Int : 456 ms Normal sinus rhythm Nonspecific ST abnormality Abnormal ECG When compared with ECG of 14-Jul-2024 05:14, ST elevation now present in Inferior leads Non-specific change in ST segment in Lateral leads T wave inversion less evident in Lateral leads Confirmed by Yrn العراقي ([id number]) on 10/13/2024 5:45:57 PM Referred By: Confirmed By: Yrn العراقي
[2024-10-13] MEDS ORDERED: ONDANSETRON INJ 2 MG/ML 2 ML VIAL IV PRN (18:20)
[2024-10-13] MEDS ORDERED: POLYETHYLENE (MIRALAX) 17 GM PACK PO PRN (18:20)
[2024-10-13] MEDS ORDERED: MELATONIN 3 MG TAB PO PRN (18:20)
[2024-10-13] MEDS ORDERED: ALUMINUM/MAGNESIUM SUSP 30 ML UDC PO PRN (18:20)
[2024-10-13] MEDS: ACETAMINOPHEN 1,000 MG/100 ML VIAL IV STA (18:48)
[2024-10-13] MEDS ORDERED: NON-FORMULARY MEDICATION (Budesonide-Glycopyr-Formoterol [Breztri Aerosphere] 160-9-4.8 mc INH SCH (22:37)
[2024-10-13] MEDS ORDERED: SODIUM CHLORIDE 0.65% NA SOLN 45 ML (OCEAN) PRN (22:37)
[2024-10-13] MEDS ORDERED: ACETAMINOPHEN 325 MG TAB PO PRN (22:47)
[2024-10-13] MEDS ORDERED: HYDROCORTISONE 2.5% CR 30 GM TUBE EXT PRN (23:05)
[2024-10-13] MEDS: VENLAFAXINE HCL 37.5 MG TAB PO SCH (23:09)
[2024-10-13] MEDS: METOPROLOL SUCC 50MG EXT REL TAB PO SCH (23:10)
[2024-10-13] MEDS: BACLOFEN 10 MG TAB PO SCH (23:13)
[2024-10-13] MEDS: ACETAMINOPHEN 325 MG TAB PO PRN (23:49)
[2024-10-14] MEDS: LIDOCAINE 5% 1 PATCH TD PRN (00:03)
[2024-10-14] MEDS ORDERED: ACETAMINOPHEN 1,000 MG/100 ML VIAL IV PRN (02:56)
[2024-10-14] MEDS: ACETAMINOPHEN 10MG/ML Custom 700 MG in EMPTY BAG 0 ML IV PRN (03:51)
[2024-10-14] MEDS: ALBUTEROL HFA 8 GM INHALER INH PRN (04:30)
[2024-10-14] MEDS: LEVOTHYROXINE SODIUM 75 MCG TABLET PO SCH (05:55)
[2024-10-14] MEDS: SODIUM CHLOR 7% 4 ML NEB INH SCH (07:34)
[2024-10-14 07:46] LABS: Hemoglobin A1C 6.1 % (4.5-5.6)
[2024-10-14 08:00] LABS: Anion Gap 8.0 (3-11); Blood Urea Nitrogen 15.0 mg/dl (6-23); Calcium 8.9 mg/dl (8.6-10.3); Carbon Dioxide 27.0 mmol/L (21-32); Chloride 100.0 mmol/L (98-107); Cholesterol 106.0 mg/dl (0-200); Creatinine Clr Calc Pharmacy 72.7 ml/min; Glucose 111.0 mg/dl (70-99(Fasting)); HDL Cholesterol 48.0 mg/dl; Potassium 4.0 mmol/L (3.5-5.1); Sodium 135.0 mmol/L (136-145); Triglycerides 48.0 mg/dl (0-150)
[2024-10-14] MEDS: ASPIRIN 81 MG ECTAB PO SCH (08:11)
[2024-10-14] MEDS: ATORVASTATIN 40 MG TAB PO SCH (08:11)
[2024-10-14] MEDS: CLOPIDOGREL BISULFATE 75 MG TAB PO SCH (08:11)
[2024-10-14] MEDS: For Breztri~FLUTICASONE FUROATE 200MCG 14 PUFFS/INHALER INH SCH (08:12)
[2024-10-14] MEDS: For Breztri~UMECLIDINIUM/VILANTEROL 62.5/25MCG 7 PUFFS/INHALER INH SCH (08:12)
[2024-10-14] MEDS: METOPROLOL SUCC 25MG EXT REL TAB PO SCH (08:12)
[2024-10-14] MEDS: FUROSEMIDE 20 MG TAB PO SCH (08:12)
[2024-10-14] MEDS: CYANOCOBALAMIN (B-12) 500 MCG TABLET PO SCH (08:13)
[2024-10-14] MEDS: ISOSORBIDE MONO EXTENDED REL 30 MG TABCR PO SCH (10:23)
[2024-10-14] MEDS: OPTIRAY 320 125ml IV ONE (12:23)
--- NOTE | 2024-10-14 13:09 | CT Scan Report ---
CT angio chest PE protocol CT DOSE: 408.14 mGy.cm HISTORY: 69 years-old Female with PE?. Acute shortness of breath TECHNIQUE: Multiple CTA images of the chest were obtained after the intravenous administration of 118 ml Optiray. Coronal and sagittal MIPS were obtained from the axial data set and were submitted for review. All measurements were obtained according to NASCET criteria. A dose lowering technique was u tilized adhering to the principles of ALARA. COMPARISON: Chest radiograph 10/13/2024, chest CT 12/17/2022 FINDINGS: CTA: Heart is normal in size. Extensive coronary artery calcifications. Atherosclerosis of the aorta witho ut aneurysm. Multifocal high-grade stenoses in the bilateral subclavian arteries, right greater than left. Additional probable high-grade stenoses within the mid to distal right common carotid artery. N o pulmonary emboli are seen. CT CHEST: Tracheostomy cannula in place. No thyroid nodules or lymphadenopathy. Moderate left hemidiaphragmatic elevation. Bronchial wall thickening with areas of mucous plugging. Moderate pulmonary emphysema. Mi ld intralobular septal thickening. No pneumothorax or pleural effusion. Linear scarring versus atelec tasis of the superior segment left lower lobe. No acute upper abdominal abnormality. Punctate right renal calculus. Unremarkable soft tissues. No ac floresita fracture. IMPRESSION: 1. No pulmonary emboli identified. 2. Cardiomegaly with extensive coronary artery calcifications and advanced atherosclerosis. 3. Emphysema with probable bronchitis 4. Equivocal mild interstitial pulmonary edema. ACT 112: Negative or not required by law. The above report was generated using voice recognition software. It may contain grammatical, syntax o r spelling errors. Electronically signed by: Cristopher Tai M.D. 10/14/2024 1:06 PM
--- NOTE | 2024-10-14 14:02 | Hospitalist Progress Note ---
Date of Service October 14, 2024 Assessment & Plan (1) Acute UTI: (2) Episode of shaking: (3) Palpitations: (4) CAD (coronary artery disease): Plan 69-year-old female with PMH Chronic hyponatremia, Hypothyroidism, COPD, history of laryngeal cancer s/p resection and radiation with chronic tracheostomy in place, Subclavian artery stenosis, CAD s/p PCI(in 2018), HTN, Bilateral carotid stenosis, History of MRSA pneumonia, recent admission for stroke like symptoms presented today with due to palpitation, worsening of shaking of her whole body and increase in frequency of urination for 1 month. She is being admitted for management of UTI and further workup for palpitation and on and off chest pain. #UTI -Increase in frequency of urination for 1 month. Denies dysuria, lower abdominal pain, fever or flank pain -Urinalysis suggestive of UTI -Urine sent for culture. F/U with C/S reports -Ceftriaxone 2gm q24hr #Coronary Artery Disease s/p PCI #Chest pain with palpitation -On and Off chest pain for around month. But currently asymptomatic -Continue Aspirin, clopidogrel and Statin - Trend Troponin. 20>12>17>22. Repeat after -Chest Xray with no acute findings -EKG with NSR and ST elevation in inferior leads; Non specific change in ST segment in lateral leads -No concerns on Telemetry overnight.Will continue to monitor on Telemetry -Continue aspirin , clopidogrel and statin -Lipid Panel, TSH and HbA1C WNL -She is following with Cardiology from [facility]. Discussed with [facility] cardiology. #Elevated BP -BP elevated to 218/98 -No antihypertensives given in setting of right sub clavian artery occlussion, -Continue to monitor BP on both arms. #Chronic bilateral shoulder pain with headache -Lidocaine patch and Tylenol as needed #MDD with Anxiety -Continue Buspirone and Venlafaxine DVT prophylaxis: Lovenox Code : Full Dispo: Med/Surg with Telemetry Admission and Anticipated Discharge Date Admission Date: October 13, 2024 Supervising Physician Co-Signing Physician Notes Attending attestation Pt seen and examined in concert with Dr. Bell. In agreement with the documented findings as noted in the resident documentation with any exceptions or additions as noted here. Ongoing polyuria reported this AM by patient consistent with presenting complaint without further shaking episodes or other discomfort. Chronic headache remains and is stable with the bilateral shoulder pain which she manages with topical lidocaine patches, improves with APAP. VS as noted. on examination, S1/S2 nl RRR no MCG. decreased breath sounds, bilateral bases. Abd NT/ND BS+ve. Significant bilateral trap tenderness to palpation. Acute urinary tract infection - UCx pending - continue ceftriaxone. Chest pain w/ palpitations - ST changes noted on EKG by Dr. العراقي and stable, mildly elevated troponins. Continue ASA, clopidogrel, statin therapy, metoprolol. Telemetry monitoring. Chronic bilateral shoulder pain with headache - continue lidocaine therapy, APAP as ordered for pain control MDD w/ anxiety - continue venlafaxine Tracheostomy in the setting of h/o head and neck cancer - continue O2 per protocol Else see resident documentation as noted. Subjective BP elevated to 232/90 overnight. BP still high in the range of 150-180/70s. Patient complaining of headache not managed with scheduled Tylenol. More short of breath. She reports she is usually more short of breath in the morning due to accumulation of phlegm which usually gets better throughout the day. Review of Systems Review of Systems: As per HPI Physical Exam Physical Exam: Constitutional: No acute distress, PILCCOD: Negative HEENT: Atraumatic, Normocephalic, No conjunctival injection, Tracheostomy in place CVS: S1 S2 no murmur, Regular Rhythm, no LE edema Respiratory: Decreased lung sound on bilateral bases GI: Soft, Nondistended, Nontender, Normal Bowel sounds + MSK: No gross deformities noted Skin: Warm, Dry, No rashes Neuro: Alert, Oriented to TPP, No Focal deficit Psych: Mood and Affect congruent, Cooperative on exam Results & Data Results & Data Vital Signs (Past 12 Hours) Vital Signs Temp Pulse Pulse Resp BP BP Pulse Ox 10/14/24 12:00 37.1 C 98 H 19 151/71 H 96 10/14/24 08:00 110 H 10/14/24 07:35 106 H 18 90 10/14/24 07:30 36.7 C 106 H 19 180/76 H 90 10/14/24 05:42 192/86 H 102/78 10/14/24 03:58 218/98 H 10/14/24 03:49 232/90 H 103/65 10/14/24 03:35 36.8 C 110 H 18 212/87 H 91 O2 Del Method 10/14/24 12:00 Trach Collar 10/14/24 08:00 10/14/24 07:35 Room Air 10/14/24 07:30 Room Air 10/14/24 05:42 10/14/24 03:58 10/14/24 03:49 10/14/24 03:35 Trach Collar
[2024-10-14] MEDS: KETOROLAC TROMETHAMINE 15 MG/ML VIAL IV PRN (14:57)
[2024-10-14] MEDS: cefTRIAXone SODIUM 2,000 MG/50 ML BAG IV SCH (16:57)
--- NOTE | 2024-10-15 06:52 | Hospitalist Progress Note ---
Date of Service October 15, 2024 Assessment & Plan (1) Acute UTI: (2) Episode of shaking: (3) Palpitations: (4) CAD (coronary artery disease): Plan 69-year-old female with PMH Chronic hyponatremia, Hypothyroidism, COPD, history of laryngeal cancer s/p resection and radiation with chronic tracheostomy in place, Subclavian artery stenosis, CAD s/p PCI(in 2018), HTN, Bilateral carotid stenosis, History of MRSA pneumonia, recent admission for stroke like symptoms presented today with due to palpitation, worsening of shaking of her whole body and increase in frequency of urination for 1 month. She is being admitted for management of UTI and further workup for palpitation and on and off chest pain. #UTI -Increase in frequency of urination for 1 month. Denies dysuria, lower abdominal pain, fever or flank pain -Urinalysis suggestive of UTI -Urine culture positive for Enterococcus faecalis -Switch Ceftriaxone to Augmentin #Coronary Artery Disease s/p PCI #Chest pain with palpitation -On and Off chest pain for around month. But currently asymptomatic -Continue Aspirin, clopidogrel and Statin - Trponin downtrending -Chest Xray with no acute findings -EKG with NSR and ST elevation in inferior leads; Non specific change in ST segment in lateral leads -No concerns on Telemetry overnight.Will continue to monitor on Telemetry -Continue aspirin , clopidogrel and statin -Lipid Panel, TSH and HbA1C WNL -She is following with Cardiology from [facility]. Discussed with [facility] cardiology. #Elevated BP -BP elevated to 218/98 -No antihypertensives given in setting of right sub clavian artery occlussion, -Continue to monitor BP on both arms. #Chronic bilateral shoulder pain with headache -Lidocaine patch and Tylenol as needed #MDD with Anxiety -Continue Buspirone and Venlafaxine DVT prophylaxis: Lovenox Code : Full Dispo: Med/Surg with Telemetry Admission and Anticipated Discharge Date Admission Date: October 13, 2024 Supervising Physician Co-Signing Physician Notes Attending attestation Pt seen and examined in concert with Dr. Bell. In agreement with the documented findings as noted in the resident documentation with any exceptions or additions as noted here. Improved polyuria compared to admission per patient. No further shaking episodes or other discomfort. Chronic headache remains/mildly improved and is stable with the bilateral shoulder pain which she manages with topical lidocaine patches, improves with APAP. VS as noted. on examination, S1/S2 nl RRR no MCG. decreased breath sounds, bilateral bases. Abd NT/ND BS+ve. Significant bilateral trap tenderness to palpation. Acute urinary tract infection - transition to PO Augmentin as noted Abnormal BP in the setting of subclavian stenosis - discussed w/ cardiology, previously eval'd by vascular - continue to monitor, restart metoprolol Chest pain w/ palpitations - ST changes noted on EKG by Dr. العراقي and stable, mildly elevated troponins which have been stable. Continue ASA, clopidogrel, statin therapy, metoprolol. Telemetry monitoring. Chronic bilateral shoulder pain with headache - continue lidocaine therapy, APAP as ordered for pain control MDD w/ anxiety - continue venlafaxine Tracheostomy in the setting of h/o head and neck cancer - continue O2 per protocol Else see resident documentation as noted. Subjective BP 150-170s over 70-80s overnight . More short of breath. She reports she is usually more short of breath in the morning due to accumulation of phlegm which usually gets better throughout the day. Reports headache is better Review of Systems Review of Systems: As per HPI Physical Exam Physical Exam: Constitutional: No acute distress, PILCCOD: Negative HEENT: Atraumatic, Normocephalic, No conjunctival injection, Tracheostomy in place CVS: S1 S2 no murmur, Regular Rhythm, no LE edema Respiratory: Decreased lung sound on bilateral bases GI: Soft, Nondistended, Nontender, Normal Bowel sounds + MSK: No gross deformities noted Skin: Warm, Dry, No rashes Neuro: Alert, Oriented to TPP, No Focal deficit Psych: Mood and Affect congruent, Cooperative on exam Results & Data Results & Data Vital Signs (Past 12 Hours) Vital Signs Temp Pulse Pulse Resp BP Pulse Ox O2 Del Method 10/15/24 04:14 36.6 C 101 H 17 182/77 H 92 Trach Collar 10/14/24 23:59 36.8 C 102 H 17 170/81 H 90 Trach Collar 10/14/24 23:46 94 H 10/14/24 21:00 Trach Collar 10/14/24 20:25 109 H 19 95 Trach Collar 10/14/24 20:17 36.5 C 92 H 20 174/68 H 96 Trach Collar O2 Flow Rate FiO2 10/15/24 04:14 2 10/14/24 23:59 2 10/14/24 23:46 10/14/24 21:00 10/14/24 20:25 28 10/14/24 20:17
[2024-10-15] MEDS: SODIUM CHLOR 7% 4 ML NEB ONE (07:33)
[2024-10-15] MEDS: FEXOFENADINE HCL 180 MG TAB PO PRN (08:00)
[2024-10-15] MEDS: busPIRone 5 MG TAB PO PRN (08:01)
[2024-10-15 08:25] LABS: Hematocrit (blood only) 36.1 % (37.0-47.0); Hemoglobin 12.4 g/dl (12.0-16.0); Immature Granulocytes # (auto) 0.02 K/uL (0.01-0.20); Immature Granulocytes % (auto) 0.3 %; Mean Corpuscular Hemoglobin 31.5 pg (25.0-34.0); Mean Corpuscular Volume 91.6 fL (80.0-100.0); Platelet Count 330 K/uL (130-400); RDW Standard Deviation 40.4 fL (36.4-46.3); Red Blood Count 3.94 M/uL (4.20-5.40); White Blood Count 7.66 K/ul (4.8-10.8)
[2024-10-15 08:58] LABS: Anion Gap 8.0 (3-11); Blood Urea Nitrogen 10.0 mg/dl (6-23); Calcium 9.3 mg/dl (8.6-10.3); Carbon Dioxide 31.0 mmol/L (21-32); Chloride 97.0 mmol/L (98-107); Creatinine Clr Calc Pharmacy 62.8 ml/min; Glucose 95.0 mg/dl (70-99(Fasting)); Potassium 3.7 mmol/L (3.5-5.1); Sodium 136.0 mmol/L (136-145)
[2024-10-15] MEDS: ALBUT/IPRATROP 3MG/0.5MG NEB 3 ML VIAL NEB SCH (13:14)
[2024-10-15] MEDS: AMOXICILLIN/CLAVULANATE 500 MG TAB PO SCH (15:29)
[2024-10-15] MEDS ORDERED: Nursing to Pharmacy Communication SCH (17:45)
[2024-10-15] MEDS: AMOXICILLIN/CLAVULANATE SUSP 250/62.5MG 5ML 75ML BTL PO SCH (17:58)
[2024-10-15] MEDS ORDERED: AMOXICILLIN/CLAVULANATE SUSP 250/62.5MG 5ML 75ML BTL PO SCH (18:00)
[2024-10-16] MEDS: FLUTICASONE PROPIONATE NA SPR 16 GM BTL PRN (07:57)
--- NOTE | 2024-10-16 07:57 | Electrocardiogram Report ---
Test Reason : Blood Pressure : */* mmHG Vent. Rate : 95 BPM Atrial Rate : 95 BPM P-R Int : 170 ms QRS Dur : 78 ms QT Int : 346 ms P-R-T Axes : 85 90 92 degrees QTcB Int : 434 ms Normal sinus rhythm Rightward axis Pulmonary disease pattern Septal infarct , age undetermined Abnormal ECG When compared with ECG of 13-Oct-2024 14:27, T wave inversion more evident in Anterior leads Confirmed by Kayleigh Rice ([id number]) on 10/16/2024 7:57:24 AM Referred By: REFERRED SELF Confirmed By: Kayleigh Rice
[2024-10-16 12:50] VITALS: TEMP 98.4
[2024-10-16 15:46] VITALS: BP 148/77
--- NOTE | 2024-10-16 16:04 | Discharge Summary ---
Discharge Summary Date of Service October 16, 2024 Principal Dx & Hospital Course #1 = Principal Diagnosis (1) Acute UTI: (2) Episode of shaking: (3) Palpitations: (4) CAD (coronary artery disease): Plan 69-year-old female with PMH Chronic hyponatremia, Hypothyroidism, COPD, history of laryngeal cancer s/p resection and radiation with chronic tracheostomy in place, Subclavian artery stenosis, CAD s/p PCI(in 2018), HTN, Bilateral carotid stenosis, History of MRSA pneumonia, recent admission for stroke like symptoms presented today with due to palpitation, worsening of shaking of her whole body and increase in frequency of urination for 1 month. She was admitted for management of UTI and further workup for palpitation and chest pain. #UTI-Increase in frequency of urination for 1 month. Denies dysuria, lower abdominal pain, fever or flank pain. Also having lower blood pressures. Suspect shaking may have been due to fevers at home. Urinalysis suggestive of UTI. Urine culture came back with Enterococcus faecalis, pansensitive. Initially treated with ceftriaxone and converted to Augmentin when Enterococcus came back - Complete a 7-day course of antibiotics with Augmentin on discharge #Coronary Artery Disease s/p PCI/Chest pain with palpitation-with intermittent chest pain for around month. But currently asymptomatic. Troponin only minimally elevated at 22, ECG without definite ischemic changes. CXR with no acute findings. Lipid panel, TSH, HgbA1c acceptable. Blood pressures were quite elevated after UTI was treated. Her isosorbide was recently cut in half as an outpatient -Continue Aspirin, clopidogrel and Statin - Restarted isosorbide 50 mg daily and can increase back to usual dose of 30 mg daily on discharge -She is following with Cardiology from [facility]. Discussed with [facility] cardiology. #Elevated BP -BP elevated to 218/98 and now improved -No extra antihypertensives given in setting of right sub clavian artery occlussion, -Continue to monitor BP on both arms as an outpatient and increased isosorbide to 30 mg daily as noted previously - Continue metoprolol #Tracheostomy/COPD-stable but chest pain may be related to this. This was greatly improved with switching/adding on DuoNebs - Continue home Breztri inhaler - Added DuoNebs every 6 hours as needed shortness of breath or wheezing at home - Continue daily trach care - Continue hypertonic nebs twice daily - Continue trach collar supplemental O2 #Chronic bilateral shoulder pain with headache -Lidocaine patch and Tylenol as needed #MDD with Anxiety -Continue Buspirone and Venlafaxine DVT prophylaxis: Lovenox Dispo: Stable for discharge to home Notes For Next Care Provider Medication Changes From Visit Added DuoNebs every 6 hours as needed Added Augmentin 500 mg p.o. 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 Fluttering of her heart on and off for 1 year. Patient is following with the cardiology . Last followup was Wednesday with no any acute concerns This morning she was short of breath. Usually she has phlegm in her tracheostomy tube. She gets short of breath until her phlegm clears up. She has shaking of her body for some time, but today patient reports severe shaking of her whole body which prompted patient to come to ER Has chest pain on and off. She also feels heavy in her chest as she is not able to expectorate her phlegm out properly. Patient denies dizziness, fever, feeling of passing out, nausea, vomiting diarrhea or headache. She has been complaining of increased frequency of urination, for a month. But no burning on peeing , or lower abdominal pain She lives by herself. Her daughter lives 3 miles away and checks her daily She is a full code Discharge Exam Constitutional + frail appearing; not in distress Respiratory normal respiratory effort (With tracheostomy in place) and able to speak in complete sentences; does not use accessory muscles Auscultation: lungs clear to auscultation bilaterally Cardiovascular RRR, no murmur, no edema Gastrointestinal (Abdomen) normal bowel sounds, soft, nontender, no hepatosplenomegaly Psychiatric A+Ox3, euthymic affect Discharge Plan Discharge Items Patient Disposition: Home - Home Health Services Reason For Visit: PALPITATION, SHAKING Discharge Diagnosis: UTI Condition on Discharge: Fair Activity: Resume your previous activity Non-emergency contact: Primary Care Provider Call non-emergency contact if: you have any medication questions and your symptoms worsen Follow-up/Referrals: Paola Wilson MD [Primary Care Provider] - (Follow-up within 1-2 weeks) Diet: Heart Healthy Addtl Attending Provider Instructions: Please finish out 3 more days of the antibiotic called Augmentin, twice daily. You can use the DuoNebs in your nebulizer machine up to 4 times a day as needed as we discussed. Your isosorbide dose will be increased back to your usual at 30 mg daily since your blood pressures are now elevated. Pending Studies at Discharge: No Stand-Alone Forms: [facility], Smoking Cessation Medications and DC Order Prescriptions: New amoxicillin-pot clavulanate [Augmentin] 250-62.5 mg/5 mL Suspension For Reconstitution 10 ml PO BIDM 3 Days Qty: 60 0RF ipratropium-albuterol 0.5 mg-3 mg(2.5 mg base)/3 mL Solution For Nebulization 3 ml NEB Q6R PRN (Reason: shortness of breath or wheezing) Qty: 180 0RF isosorbide mononitrate 30 mg Tablet Extended Release 24 Hr 30 mg PO QAM Qty: 30 0RF Continued buspirone 5 mg tablet 5 mg PO BID PRN (Reason: Anxiety) venlafaxine 75 mg tablet 75 mg PO BID Rx Instructions: take with food furosemide [Lasix] 20 mg Tablet 20 mg PO QAM (DME) Saline Sensitive Eyes Drops MISCELLANEOUS Rx Instructions: 2 drops daily as needed Debrox 6.5 % Drops 5 drp OTIC (EAR) DAILY PRN (Reason: NEEDED) Saline Mist 0.65 % aerosol,spray 2 spray NA DIRECTED PRN (Reason: Congestion) Breztri Aerosphere 160-9-4.8 mcg/actuation HFA aerosol inhaler 2 inh INHALATION [facility] aspirin 81 mg Tablet,Delayed Release (Dr/Ec) 81 mg PO QAM albuterol sulfate 90 mcg/actuation HFA aerosol inhaler 2 puff INHALATION Q4H PRN (Reason: Shortness Of Breath) fluticasone propionate 50 mcg/actuation Curtice,Suspension 2 spray INTRANASAL DAILY PRN (Reason: Congestion) metoprolol succinate 50 mg tablet extended release 24 hr 50 mg PO HS levothyroxine 75 mcg tablet 75 mcg PO DAILYBB atorvastatin 40 mg Tablet 40 mg PO QAM Qty: 30 0RF clopidogrel 75 mg Tablet 75 mg PO QAM Qty: 30 0RF lidocaine 4 % Adhesive Patch,Medicated 1 patch TOPICAL DAILY PRN (Reason: Pain) Rx Instructions: ON FOR 12 HR. THEN REMOVE metoprolol succinate 50 mg Tablet Extended Release 24 Hr 75 mg PO QAM sodium chloride 3 % Solution For Nebulization 3 ml INHALATION TID fexofenadine [Marylou] 180 mg Tablet 180 mg PO DAILY PRN (Reason: Allergy Symptoms) cyanocobalamin (vitamin B-12) [Vitamin B-12] 500 mcg Tablet 500 mcg PO DAILY baclofen 10 mg Tablet 10 mg PO BID fluocinolone 0.01 % Oil 1 applic TOPICAL DAILY PRN (Reason: ITCHY EARS) acetaminophen 160 mg/5 mL (5 mL) Solution 650 mg PO Q6H PRN (Reason: pain/fever) Discharge Orders: Discharge Order (Routine); Ordered 10/16/24 Ordered By: Destiny Bishop Admission Data Admit Date/Time: 10/13/24 18:20 Attending Provider: Destiny Bishop Admit Provider: Yas Bell Primary Care Provider: Paola Wilson Other Providers: Murray Bolanos; Yrn Lewis Hospital Stay Data Consultations 10/13/24 16:27 ED Decision to Admit Stat 10/13/24 16:38 ED Decision to Admit Stat Diagnostic Imagining Performed 10/13/24 14:25 CT head/brain wo con Stat 10/14/24 10:25 CT angio chest PE protocol Urgent Pending Results Patient Have Any Pending Studies at Discharge: No Discharge Instructions Given to Patient (Per Discharging Provider) Please finish out 3 more days of the antibiotic called Augmentin, twice daily. You can use the DuoNebs in your nebulizer machine up to 4 times a day as needed as we discussed. Your isosorbide dose will be increased back to your usual at 30 mg daily since your blood pressures are now elevated. Total Time Total Time Spent Total Time Spent (In Minutes): 35 minutes Total Time Includes: Examination of the Patient, Discharge Planning and Medication Reconciliation Coding Level of Care Code 52179 INP/OBS DISCH >30 MIN Diagnoses Acute UTI N39.0 Episode of shaking R25.1 Palpitations R00.2 CAD (coronary artery disease) I25.10
[2024-10-16 16:21] VITALS: PULSE 99; RESP 19; O2SAT 99
== END 2024-10-16 17:26 | disposition home health service (06) | DRG 690 ==
LOC: ED 14:13 → 2S 18:20 → SUATTDRO 18:20 → 2S 22:42

== ENCOUNTER 2024-10-19 19:25 | Inpatient (IN) ==
--- NOTE | 2024-10-19 19:33 | Emergency Department Note ---
Impression & Plan Acute dyspnea Admission ED Provider Note HPI: History obtained from patient and EMS report. The patient is a 69-year-old female with history of laryngeal cancer, status post tracheostomy, history of CAD, who presents the emergency department with a chief complaint of dyspnea. Patient mentions that she has had increasing shortness of breath throughout the day today. Patient also mentions that she had a fever at home. On arrival here to the ED the patient is tachycardic, she does display some moderate increased work of breathing on my initial assessment on trach collar oxygen at 10 L. Patient states she does have some mild chest pain on arrival as well. On arrival here to the ED the patient is afebrile, she is saturating at 98% on my initial assessment. ROS: - Per HPI Differential Diagnosis: COPD exacerbation, pneumonia, acute coronary syndrome, pulmonary embolism, acute CHF exacerbation, pulmonary edema, pleural effusion, amongst other potential pathologies. *Outpatient medications and allergy history reviewed. PE: General: Alert, frail-appearing, no acute distress HEENT: Normocephalic, tracheostomy in place without surrounding erythema or drainage Eyes: Extraocular eye movement is intact, no scleral erythema Pulmonary: Diminished bilateral breath sounds without expiratory wheezing Cardio: Tachycardic rate with regular rhythm GI: Abdomen is soft to palpation : No suprapubic tenderness MSK: No evidence of trauma or malformation of the extremities, no edema Skin: No evidence of rash Neuro: Alert, no focal deficits Psychiatric: Cooperative INDEPENDENT INTERPRETATIONS: contract law specialist: (As interpreted by myself): - An order was placed for continuous cardiac monitoring - Patient was noted to be in sinus tachycardia with a rate of 90 EKG: (As interpreted by myself): Rate: 127 Rhythm: Sinus tachycardia Intervals: ND 210 ms, otherwise within normal limits ST changes: No ST elevation Time: 193 Chest x-ray: (As interpreted by myself): Mild pulmonary vascular congestion Interventions provided in ED: - DuoNeb breathing treatment Medical Decision Making: Patient presented to the emergency department shortness of breath, she was given DuoNeb breathing treatment and IV Solu-Medrol in the field via EMS. Oxygen was titrated down while she was here in the ED. IV was established and lab work obtained. Lab work shows a mild leukocytosis of 13.8, hemoglobin is normal, platelet count is normal, venous blood gas shows a slightly acidotic pH at 7.34 and pCO2 58, CMP does not show any evidence of any critical findings. Troponin is mildly elevated at 27.9 which appears to be within range of the patient's most recent baseline levels, BNP is elevated at 965. Procalcitonin is low at 0.03 suggesting against systemic infection. There does appear to be some pulmonary vascular congestion on chest x-ray but no obvious pneumonia. Patient was given an additional DuoNeb breathing treatment here in the ED with good improvement in her dyspnea. She had recent CT angiography of the chest done that did not show any evidence of PE therefore this was not repeated. Given the patient's increased work of breathing on arrival and her multiple comorbidities I did discuss the patient's presentation with the on-call hospitalist, Dr. Zaidi, the patient was placed for admission in stable condition for further care of suspected COPD with mild hypercarbic respiratory failure. Consultants/Discussions held with other healthcare providers: - Hospitalist, Dr. Zaidi Disposition discussion held by myself with: - Patient Diagnosis: 1. Hypercarbic respiratory failure, acute 2. COPD exacerbation, acute 3. Elevated BNP, acute 4. Patient with tracheostomy Disposition: Admission David Singh DO Emergency Medicine Past Med/Surg History Problem List (Updated 10/20/24 @ 02:00 by David Singh DO) Acute dyspnea (Acute) Acute UTI (Acute) Episode of shaking (Acute) Palpitations (Acute) CAD (coronary artery disease) Peripheral arterial disease (Acute) Subclavian artery stenosis, right Tracheostomy dependent (Acute) Carotid stenosis (Acute) Hyponatremia (Chronic) PEG (percutaneous endoscopic gastrostomy) adjustment/replacement/removal Dysphagia Medical History (Updated 10/20/24 @ 02:00 by David Singh DO) Femoral artery occlusion Hypothyroidism Mucus plugging of bronchi Tracheostomy complication Anxiety History of respiratory failure COPD (chronic obstructive pulmonary disease) Tracheostomy in place Herniated disc LOWER BACK Carpal tunnel syndrome Laryngeal cancer S/P TRACH + PEG TUBE PLACEMENT, RADIATION CAD (coronary artery disease) 2007 - LAD stent 2016 - LITTLE to mid LAD Hypertension Surgical History History of partial gastrectomy due to fistula from PEG tube History of tracheostomy History of laryngoscopy W/ BIOPSY History of heart artery stent S/P percutaneous endoscopic gastrostomy (PEG) tube placement History of bronchoscopy History of tracheostomy History of cardiac cath 2008 - [place] - [facility] - 2 STENTS PLACED - FOLLOWS W/ DR. MONTENEGRO 2016 - ABN STRESS TEST - [facility] - NO STENTS/ANGIOPLASTY History of tonsillectomy and adenoidectomy Family History Daughter Family history of reaction to anesthesia SLOW TO WAKE Father Family hx of colon cancer Other Colon cancer No pertinent family history Social History Smoking Status: Former smoker Tobacco Type: Cigarettes Cigarettes Per Day: 1-2; Second Hand Exposure: No; Do You Dip or Chew Tobacco: No; Hx Alcohol Use: Yes Alcohol type: beer and wine Hx Substance Use: No Preferred Language: Estonian Communication Ability: Effective Software Manager Required: No Beliefs That Will Affect Care: None marital status: Current Living Situation: Alone Current Living Situation Comment: pt reports family living close current occupational status: retired Feels Safe at Home: Yes Assistive Devices: Nebulizer and Oxygen - Continuous Allergies Allergies Allergy/AdvReac Type Severity Reaction Status Date / Time bee venom protein (honey bee) Allergy Severe Anaphylaxis Verified 10/19/24 22:43 latex Allergy Intermediate Rash Verified 10/19/24 22:43 oxycodone [From Percocet] Allergy Intermediate PER Verified 10/19/24 22:43 GMG--GETS LOOPY. Home Meds Home Medications Medication Instructions Recorded Confirmed furosemide 20 mg tablet (Lasix) 20 mg PO QAM 03/01/19 10/19/24 soft lens rinse,store solution 03/01/19 10/20/24 (Saline Sensitive Eyes drops) buspirone 5 mg tablet 5 mg PO BID PRN Anxiety 10/31/19 10/19/24 venlafaxine 75 mg tablet 75 mg PO BID 10/31/19 10/19/24 albuterol sulfate 90 mcg/actuation 2 puff inhalation Q4H PRN 01/23/21 10/19/24 aerosol inhaler Shortness Of Breath aspirin 81 mg tablet,delayed 81 mg PO QAM 01/23/21 10/19/24 release fluticasone propionate 50 2 spray intranasal DAILY PRN 01/23/21 10/19/24 mcg/actuation nasal Congestion spray,suspension carbamide peroxide 6.5 % ear drops 5 drp otic (ear) DAILY PRN 03/24/21 10/19/24 (Debrox) NEEDED sodium chloride 0.65 % nasal spray 2 spray NA DIRECTED PRN 03/24/21 10/19/24 aerosol (Saline Mist) Congestion budesonide 160 mcg-glycopyr 9 2 inh inhalation AMHS 12/17/22 10/19/24 mcg-formot 4.8 mcg/actuation HFA inhaler (Breztri Aerosphere) metoprolol succinate 50 mg 50 mg PO HS 02/18/23 10/19/24 tablet,extended release 24 hr levothyroxine 75 mcg tablet 75 mcg PO DAILYBB 07/12/24 10/19/24 acetaminophen 160 mg/5 mL (5 mL) 650 mg PO Q6H PRN pain/fever 10/13/24 10/19/24 oral solution baclofen 10 mg tablet 10 mg PO BID 10/13/24 10/19/24 cyanocobalamin (vitamin B-12) 500 500 mcg PO DAILY 10/13/24 10/19/24 mcg tablet (Vitamin B-12) fexofenadine 180 mg tablet 180 mg PO DAILY PRN Allergy 10/13/24 10/19/24 Symptoms fluocinolone 0.01 % topical body 1 applic topical DAILY PRN ITCHY 10/13/24 10/19/24 oil EARS lidocaine 4 % topical patch 1 patch topical DAILY PRN Pain 10/13/24 10/19/24 metoprolol succinate 50 mg 75 mg PO QAM 10/13/24 10/19/24 tablet,extended release 24 hr sodium chloride 3 % for 3 ml inhalation TID 10/13/24 10/19/24 nebulization amoxicillin 250 mg-potassium 5 ml PO BID 10/19/24 10/19/24 clavulanate 62.5 mg/5 mL oral suspension Previous Rx's Medication Instructions Recorded atorvastatin 40 mg tablet 40 mg PO QAM #30 tabs 07/14/24 clopidogrel 75 mg tablet 75 mg PO QAM #30 tabs 07/14/24 ipratropium 0.5 mg-albuterol 3 mg 3 ml NEB Q6R PRN shortness of 10/16/24 (2.5 mg base)/3 mL nebulization breath or wheezing #180 mL soln isosorbide mononitrate 30 mg 30 mg PO QAM #30 tabs 10/16/24 tablet,extended release 24 hr Results & Data (ED) Vital Signs Vital Signs - 24 hr 10/19/24 19:27 10/19/24 19:32 10/19/24 19:32 Temperature 37.1 C Temperature Source Oral Pulse Rate 127 H Pulse Rate [Apical] Pulse Rhythm Pulse Rhythm [Apical] Pulse Strength [Apical] Respiratory Rate 19 Respiratory Effort / Characteristics Respiratory Depth Respiratory Pattern Blood Pressure 210/109 H Blood Pressure [Left Arm] Blood Pressure Mean 142 Blood Pressure Mean [Left Arm] Blood Pressure Position Sitting Blood Pressure Position [Left Arm] Pulse Oximetry 100 Oxygen Delivery Method Trach Collar Trach Collar Trach Collar Oxygen Flow Rate 12 12 Sepsis Recent Fever Within 48 Hours Yes Sepsis New/Unexplained Change in Mental Status No Sepsis Action Taken by Nursing No Action Required 10/19/24 19:34 10/19/24 20:39 10/19/24 21:00 Temperature Temperature Source Pulse Rate 125 H Pulse Rate [Apical] 114 H 108 H Pulse Rhythm Pulse Rhythm [Apical] Pulse Strength [Apical] Respiratory Rate 22 26 H Respiratory Effort / Characteristics Labored Respiratory Depth Respiratory Pattern Blood Pressure Blood Pressure [Left Arm] 106/98 168/97 H Blood Pressure Mean Blood Pressure Mean [Left Arm] 100 120 Blood Pressure Position Blood Pressure Position [Left Arm] Pulse Oximetry 99 100 Oxygen Delivery Method Trach Collar Oxygen Flow Rate 12 Sepsis Recent Fever Within 48 Hours Sepsis New/Unexplained Change in Mental Status Sepsis Action Taken by Nursing 10/19/24 21:23 10/19/24 23:00 10/19/24 23:01 Temperature Temperature Source Pulse Rate Pulse Rate [Apical] 90 100 H 97 H Pulse Rhythm Pulse Rhythm [Apical] Regular Regular Pulse Strength [Apical] Normal Normal Respiratory Rate 25 H 22 Respiratory Effort / Characteristics Non-Labored Spontaneous Non-Labored Spontaneous Non-Labored Spontaneous Respiratory Depth Normal Normal Respiratory Pattern Regular Regular Blood Pressure Blood Pressure [Left Arm] 128/63 131/70 Blood Pressure Mean Blood Pressure Mean [Left Arm] 84 90 Blood Pressure Position Blood Pressure Position [Left Arm] Lying Lying Pulse Oximetry 100 97 100 Oxygen Delivery Method Trach Collar Trach Collar Trach Collar Oxygen Flow Rate 12 11 Sepsis Recent Fever Within 48 Hours Sepsis New/Unexplained Change in Mental Status Sepsis Action Taken by Nursing 10/19/24 23:09 10/19/24 23:09 10/19/24 23:28 Temperature Temperature Source Pulse Rate 104 H 99 H Pulse Rate [Apical] 100 H Pulse Rhythm Regular Pulse Rhythm [Apical] Regular Pulse Strength [Apical] Normal Respiratory Rate 20 20 Respiratory Effort / Characteristics Non-Labored Spontaneous Respiratory Depth Normal Respiratory Pattern Regular Blood Pressure Blood Pressure [Left Arm] 131/70 Blood Pressure Mean Blood Pressure Mean [Left Arm] 90 Blood Pressure Position Blood Pressure Position [Left Arm] Pulse Oximetry 96 99 Oxygen Delivery Method Trach Collar Trach Collar Oxygen Flow Rate 12 12 Sepsis Recent Fever Within 48 Hours Sepsis New/Unexplained Change in Mental Status Sepsis Action Taken by Nursing 10/20/24 01:10 Temperature Temperature Source Pulse Rate 87 Pulse Rate [Apical] Pulse Rhythm Pulse Rhythm [Apical] Pulse Strength [Apical] Respiratory Rate 20 Respiratory Effort / Characteristics Respiratory Depth Respiratory Pattern Blood Pressure 103/52 L Blood Pressure [Left Arm] Blood Pressure Mean Blood Pressure Mean [Left Arm] Blood Pressure Position Blood Pressure Position [Left Arm] Pulse Oximetry 97 Oxygen Delivery Method T-Piece Oxygen Flow Rate 2 Sepsis Recent Fever Within 48 Hours Sepsis New/Unexplained Change in Mental Status Sepsis Action Taken by Nursing Laboratory Data 10/19/24 19:33 10/19/24 19:33 Lab Results 10/19/24 10/19/24 10/19/24 Range/Units 19:30 19:33 20:01 WBC 13.80 H (4.8-10.8) K/ul RBC 4.02 L (4.20-5.40) M/uL Hgb 12.2 (12.0-16.0) g/dl Hct 37.0 (37.0-47.0) % MCV 92.0 (80.0-100.0) fL MCH 30.3 (25.0-34.0) pg MCHC 33.0 (32.0-36.0) g/dL RDW Std Deviation 42.2 (36.4-46.3) fL RDW Coeff of Jair 12.6 (11.5-14.5) % Plt Count 396 (130-400) K/uL MPV 9.5 (9.4-12.4) fL Immature Gran % (Auto) 0.3 % Neut % (Auto) 77.4 % Lymph % (Auto) 12.3 % Mccormick % (Auto) 7.5 % Eos % (Auto) 2.0 % Baso % (Auto) 0.5 % Neut # (Auto) 10.68 H (1.40-6.50) K/uL Lymph # (Auto) 1.70 (1.20-3.40) K/uL Mccormick # (Auto) 1.03 H (0.11-0.59) K/uL Eos # (Auto) 0.28 (0.00-0.50) K/uL Baso # (Auto) 0.07 (0.00-0.20) K/uL Immature Gran # (Auto) 0.04 (0.01-0.20) K/uL PT 12.0 (9.0-12.0) Seconds INR 1.1 (0.9-1.1) VBG pH 7.34 L (7.36-7.41) VBG pCO2 58 H (38-50) mmHg VBG pO2 48 mmHg VBG HCO3 31 mmol/L VBG O2 Saturation 68.5 % VBG Base Excess 3.9 mEq/L Sodium 133 L (136-145) mmol/L Potassium 3.2 L (3.5-5.1) mmol/L Chloride 94 L (98-107) mmol/L Carbon Dioxide 29 (21-32) mmol/L Anion Gap 10 (3-11) BUN 14 (6-23) mg/dl Creatinine 0.68 (0.6-1.2) mg/dl Est Cr Clr Drug Dosing 53.7 ml/min eGFR 93.05 BUN/Creatinine Ratio 20.6 H (10-20) Glucose 149 H (70-99(Fasting)) mg/dl Calcium 9.4 (8.6-10.3) mg/dl Magnesium 1.8 (1.7-2.4) mg/dl Total Bilirubin 0.5 (0.2-1.0) mg/dl AST 57 H (13-39) U/L ALT 35 (7-52) U/L Alkaline Phosphatase 78 (34-104) U/L Troponin I High Sens 27.9 H (0-14) pg/ml B-Natriuretic Peptide 965 H (0-100) pg/ml Total Protein 7.7 (6.0-8.3) gm/dl Albumin 3.5 (3.4-5.0) gm/dl Globulin 4.2 H (2.5-4.0) gm/dl Albumin/Globulin Ratio 0.8 L (0.9-2) Procalcitonin 0.03 (0-0.5) ng/ml Urine Color Yellow Urine Appearance Clear (Clear) Urine pH 8.0 H (4.5-7.5) Ur Specific [place] 1.011 (1.000-1.030) Urine Protein 2+ H (Negative) Urine Glucose (UA) Negative (Negative) Urine Ketones Negative (Negative) Urine Blood Trace H (Negative) Urine Nitrite Negative (Negative) Urine Bilirubin Negative (Negative) Urine Urobilinogen Negative (Negative) Ur Leukocyte Esterase Negative (Negative) Urine WBC (Auto) 0-5 (0-5) /hpf Urine RBC (Auto) 0-2 (0-2) /hpf U Hyaline Cast (Auto) 0-2 (0-2) /lpf U Epithel Cells (Auto) 0-2 (0-2) /hpf Urine Bacteria (Auto) None Seen (None Seen) Urine Comment Adenovirus (PCR) Not Detected (NotDetected) B. pertussis DNA (PCR) Not Detected (NotDetected) B.parapertussis DNA PCR Not Detected (NotDetected) C. pneumoniae DNA (PCR) Not Detected (NotDetected) Coronavirus OC43 (PCR) Not Detected (NotDetected) Coronavirus HKU1 (PCR) Not Detected (NotDetected) Coronavirus 229E (PCR) Not Detected (NotDetected) SARS-CoV-2 (PCR) Not Detected (NotDetected) Coronavirus NL63 (PCR) Not Detected (NotDetected) Human Metapneumovir PCR Not Detected (NotDetected) Influenza Type A (PCR) Not Detected (NotDetected) Influenza Type B (PCR) Not Detected (NotDetected) M. pneumoniae (PCR) Not Detected (NotDetected) Parainfluenza 1 (PCR) Not Detected (NotDetected) Parainfluenza 2 (PCR) Not Detected (NotDetected) Parainfluenza 3 (PCR) Not Detected (NotDetected) Parainfluenza 4 (PCR) Not Detected (NotDetected) RSV (PCR) Not Detected (NotDetected) Entero/Rhino (PCR) Not Detected (NotDetected) 10/19/24 Range/Units 21:25 WBC (4.8-10.8) K/ul RBC (4.20-5.40) M/uL Hgb (12.0-16.0) g/dl Hct (37.0-47.0) % MCV (80.0-100.0) fL MCH (25.0-34.0) pg MCHC (32.0-36.0) g/dL RDW Std Deviation (36.4-46.3) fL RDW Coeff of Jair (11.5-14.5) % Plt Count (130-400) K/uL MPV (9.4-12.4) fL Immature Gran % (Auto) % Neut % (Auto) % Lymph % (Auto) % Mccormick % (Auto) % Eos % (Auto) % Baso % (Auto) % Neut # (Auto) (1.40-6.50) K/uL Lymph # (Auto) (1.20-3.40) K/uL Mccormick # (Auto) (0.11-0.59) K/uL Eos # (Auto) (0.00-0.50) K/uL Baso # (Auto) (0.00-0.20) K/uL Immature Gran # (Auto) (0.01-0.20) K/uL PT (9.0-12.0) Seconds INR (0.9-1.1) VBG pH (7.36-7.41) VBG pCO2 (38-50) mmHg VBG pO2 mmHg VBG HCO3 mmol/L VBG O2 Saturation % VBG Base Excess mEq/L Sodium (136-145) mmol/L Potassium (3.5-5.1) mmol/L Chloride (98-107) mmol/L Carbon Dioxide (21-32) mmol/L Anion Gap (3-11) BUN (6-23) mg/dl Creatinine (0.6-1.2) mg/dl Est Cr Clr Drug Dosing ml/min eGFR BUN/Creatinine Ratio (10-20) Glucose (70-99(Fasting)) mg/dl Calcium (8.6-10.3) mg/dl Magnesium (1.7-2.4) mg/dl Total Bilirubin (0.2-1.0) mg/dl AST (13-39) U/L ALT (7-52) U/L Alkaline Phosphatase (34-104) U/L Troponin I High Sens 47.5 H D (0-14) pg/ml B-Natriuretic Peptide (0-100) pg/ml Total Protein (6.0-8.3) gm/dl Albumin (3.4-5.0) gm/dl Globulin (2.5-4.0) gm/dl Albumin/Globulin Ratio (0.9-2) Procalcitonin (0-0.5) ng/ml Urine Color Urine Appearance (Clear) Urine pH (4.5-7.5) Ur Specific [place] (1.000-1.030) Urine Protein (Negative) Urine Glucose (UA) (Negative) Urine Ketones (Negative) Urine Blood (Negative) Urine Nitrite (Negative) Urine Bilirubin (Negative) Urine Urobilinogen (Negative) Ur Leukocyte Esterase (Negative) Urine WBC (Auto) (0-5) /hpf Urine RBC (Auto) (0-2) /hpf U Hyaline Cast (Auto) (0-2) /lpf U Epithel Cells (Auto) (0-2) /hpf Urine Bacteria (Auto) (None Seen) Urine Comment Adenovirus (PCR) (NotDetected) B. pertussis DNA (PCR) (NotDetected) B.parapertussis DNA PCR (NotDetected) C. pneumoniae DNA (PCR) (NotDetected) Coronavirus OC43 (PCR) (NotDetected) Coronavirus HKU1 (PCR) (NotDetected) Coronavirus 229E (PCR) (NotDetected) SARS-CoV-2 (PCR) (NotDetected) Coronavirus NL63 (PCR) (NotDetected) Human Metapneumovir PCR (NotDetected) Influenza Type A (PCR) (NotDetected) Influenza Type B (PCR) (NotDetected) M. pneumoniae (PCR) (NotDetected) Parainfluenza 1 (PCR) (NotDetected) Parainfluenza 2 (PCR) (NotDetected) Parainfluenza 3 (PCR) (NotDetected) Parainfluenza 4 (PCR) (NotDetected) RSV (PCR) (NotDetected) Entero/Rhino (PCR) (NotDetected) Administered Medications Discontinued Medications Albuterol (Albut/Ipratrop 3mg/0.5mg Neb 3 Ml Vial) 3 ml NEB NOW STA; Protocol Stop: 10/19/24 21:26 Last Admin: 10/19/24 22:52 Dose: 3 ml Documented By: [email or web address] Imaging Data Radiologist's Impression: Chest X-Ray 10/19/24 19:27 Exam(s): XR CXR 1 VIEW EXAM: XR Chest, 1 View CLINICAL HISTORY: Reason for exam: Dyspnea. TECHNIQUE: Frontal view of the chest. COMPARISON: Chest radiograph on 10/13/2024 FINDINGS: Hardware: Tracheostomy tube terminates in the region of the upper thoracic trachea. Lungs/pleura: Prominent lung markings and hazy opacities. Possible trace right pleural effusion. Heart/mediastinum: Atherosclerotic calcifications in the aorta. No cardiomegaly. Soft tissues: Unremarkable. Bones: No acute fracture. Upper abdomen: Normal. IMPRESSION: Prominent lung markings and hazy opacities, concerning for pulmonary vasculature congestion/edema. Possible trace right pleural effusion. Electronically signed by: Martine Vyas M.D. 10/19/24 22:40 PM Discharge Plan Visit Data Chief Complaint: Shortness of Breath/Dyspnea Stated Complaint: SOB, Chest Pain, Fever ED Provider: David Singh Discharge Problem: Acute dyspnea Patient Disposition: Admitted As Inpatient Condition: Fair Discharge Instructions Interventions: ED Discharge Assessment Last Done: 10/20/24 01:10 Forms Stand Alone Forms: My [facility] Prescriptions Prescriptions: No Action buspirone 5 mg tablet 5 mg PO BID PRN (Reason: Anxiety) venlafaxine 75 mg tablet 75 mg PO BID Rx Instructions: take with food furosemide [Lasix] 20 mg Tablet 20 mg PO QAM (DME) Saline Sensitive Eyes Drops MISCELLANEOUS Rx Instructions: 2 drops daily as needed Debrox 6.5 % Drops 5 drp OTIC (EAR) DAILY PRN (Reason: NEEDED) Saline Mist 0.65 % aerosol,spray 2 spray NA DIRECTED PRN (Reason: Congestion) Breztri Aerosphere 160-9-4.8 mcg/actuation HFA aerosol inhaler 2 inh INHALATION AMHS aspirin 81 mg Tablet,Delayed Release (Dr/Ec) 81 mg PO QAM albuterol sulfate 90 mcg/actuation HFA aerosol inhaler 2 puff INHALATION Q4H PRN (Reason: Shortness Of Breath) fluticasone propionate 50 mcg/actuation [place],Suspension 2 spray INTRANASAL DAILY PRN (Reason: Congestion) metoprolol succinate 50 mg tablet extended release 24 hr 50 mg PO HS amoxicillin-pot clavulanate 250-62.5 mg/5 mL suspension for reconstitution 5 ml PO BID Rx Instructions: 10/19/24 : LAST DOSE SCHEDULED FOR 10/19/24 IN PM - NOT TAKEN levothyroxine 75 mcg tablet 75 mcg PO DAILYBB atorvastatin 40 mg Tablet 40 mg PO QAM Qty: 30 0RF clopidogrel 75 mg Tablet 75 mg PO QAM Qty: 30 0RF lidocaine 4 % Adhesive Patch,Medicated 1 patch TOPICAL DAILY PRN (Reason: Pain) Rx Instructions: ON FOR 12 HR. THEN REMOVE metoprolol succinate 50 mg Tablet Extended Release 24 Hr 75 mg PO QAM sodium chloride 3 % Solution For Nebulization 3 ml INHALATION TID fexofenadine 180 mg Tablet 180 mg PO DAILY PRN (Reason: Allergy Symptoms) cyanocobalamin (vitamin B-12) [Vitamin B-12] 500 mcg Tablet 500 mcg PO DAILY baclofen 10 mg Tablet 10 mg PO BID fluocinolone 0.01 % Oil 1 applic TOPICAL DAILY PRN (Reason: ITCHY EARS) acetaminophen 160 mg/5 mL (5 mL) Solution 650 mg PO Q6H PRN (Reason: pain/fever) ipratropium-albuterol 0.5 mg-3 mg(2.5 mg base)/3 mL Solution For Nebulization 3 ml NEB Q6R PRN (Reason: shortness of breath or wheezing) Qty: 180 0RF isosorbide mononitrate 30 mg Tablet Extended Release 24 Hr 30 mg PO QAM Qty: 30 0RF Referrals Referrals: Paola Wilson MD [Primary Care Provider] -
[2024-10-19 19:46] LABS: Hematocrit (blood only) 37.0 % (37.0-47.0); Hemoglobin 12.2 g/dl (12.0-16.0); Immature Granulocytes # (auto) 0.04 K/uL (0.01-0.20); Immature Granulocytes % (auto) 0.3 %; Mean Corpuscular Hemoglobin 30.3 pg (25.0-34.0); Mean Corpuscular Volume 92.0 fL (80.0-100.0); Platelet Count 396 K/uL (130-400); RDW Standard Deviation 42.2 fL (36.4-46.3); Red Blood Count 4.02 M/uL (4.20-5.40); White Blood Count 13.80 K/ul (4.8-10.8)
[2024-10-19 19:49] LABS: Base Excess VBG 3.9 mEq/L; HCO3 VBG 31 mmol/L; Oxygen Saturation VBG 68.5 %; PCO2 VBG 58 mmHg (38-50); PO2 VBG 48 mmHg; pH VBG 7.34 (7.36-7.41)
[2024-10-19 20:04] LABS: Alanine Aminotransferase 35.0 U/L (7-52); Albumin Globulin Ratio 0.8 (0.9-2); Alkaline Phosphatase 78.0 U/L (34-104); Anion Gap 10.0 (3-11); Bilirubin,Total 0.5 mg/dl (0.2-1.0); Blood Urea Nitrogen 14.0 mg/dl (6-23); Calcium 9.4 mg/dl (8.6-10.3); Carbon Dioxide 29.0 mmol/L (21-32); Chloride 94.0 mmol/L (98-107); Creatinine Clr Calc Pharmacy 53.7 ml/min; Globulin 4.2 gm/dl (2.5-4.0); Glucose 149.0 mg/dl (70-99(Fasting)); Potassium 3.2 mmol/L (3.5-5.1); Sodium 133.0 mmol/L (136-145); Total Protein 7.7 gm/dl (6.0-8.3)
[2024-10-19 20:12] LABS: INR 1.1 (0.9-1.1); Prothrombin Time 12.0 Seconds (9.0-12.0)
[2024-10-19 20:15] LABS: Appearance Urine Clear (Clear); Bacteria Urine Automated None Seen (None Seen); Cast Urine Automated 0-2 /lpf (0-2); Epithelial Cell Urine Auto 0-2 /hpf (0-2); Glucose Urine UA Negative (Negative); RBC Urine Automated 0-2 /hpf (0-2); WBC Urine Automated 0-5 /hpf (0-5)
[2024-10-19 20:47] LABS: Chlamydia pneumoniae PCR Not Detected (NotDetected); Coronavirus 229E PCR Not Detected (NotDetected); Coronavirus CoV-2 (COVID19)PCR Not Detected (NotDetected); Coronavirus HKU1 PCR Not Detected (NotDetected); Coronavirus NL63 PCR Not Detected (NotDetected); Coronavirus OC43PCR Not Detected (NotDetected); Human Metapneumovirus PCR Not Detected (NotDetected); Parainfluenza Virus 1 PCR Not Detected (NotDetected); Parainfluenza Virus 2 PCR Not Detected (NotDetected); Parainfluenza Virus 3 PCR Not Detected (NotDetected); Parainfluenza Virus 4 PCR Not Detected (NotDetected); Respiratory Syncytial VirusPCR Not Detected (NotDetected); Rhinovirus/Enterovirus PCR Not Detected (NotDetected)
--- NOTE | 2024-10-19 22:37 | History & Physical Report ---
Date of Service October 19, 2024 Assessment & Plan (1) CAD (coronary artery disease): (2) Tracheostomy dependent: (3) COPD (chronic obstructive pulmonary disease): (4) Sepsis: Plan Ms. Hardy is a 69 y.o. female with history of laryngeal cancer, status post tracheostomy, COPD, HTN, history of CAD, who is admitted to the hospital due to SOB and CP. #Sepsis due to COPD Exacerbation - WBC 13.8, HR 110, RR 26 - Procal 0.03 - BNP 965 (past BNP in 700s) and Trop 27.9 --> 47.5, likely due to acute phase reactant, repeat both in AM - ECHO 05/2024 shows EF 60-64% - VBG pH 7.34, CO2 58 - UA negative - Chest X-ray shows bilateral diffuse infiltrate, pending radiology read, do not suspect hospital associated infection - Start DuoNebs QID Q2 PRN, IV Solumedrol 40mg IV q6, Mucinex 1200 PO BID, Azithromycin 500 mg IV - Biofire negative - MRSA nare pending - continue home Bretzi - blood culture pending, follow blood culture sensitivities - repeat CBC, BMP in AM #Hypokalemia - K 3.2, repleted - Mg level pending, repeat in AM - likely contributory factor to tachycardia - repeat BMP in AM #CAD/HTN - continue home medications including metoprolol, isosorbite nitrate, ASA, clopidogrel, atorvastatin - hold home furosemide in lieu of recent hypokalemia #Tracheostomy dependent - continue daily trach care - continue supplemental O2 through trach Dispo: PCU tele Code: Full VTE Prophylaxis: Lovenox Diet: Heart Healthy History of Present Illness Chief Complaint: SOB, CP Primary Care Provider: Paola Wilson MD Ms. Hardy is a 69 y.o. female with history of laryngeal cancer, status post tracheostomy, history of CAD, who is admitted to the hospital due to SOB and CP. Patient states around 4:30am she was seated in her bed and felt like she could not breathe. Also reports mid-line chest pain at this time that radiated to her upper back. States her SpO2 was in 70s at this time and BP dropped to 80s/60s. She took a DuoNeb treatment at this time as well as 2 puffs of Breztri. She called daughter and they decided to wait to see how she felt throughout day. Around dinner time, noted her SOB was worsening and she was continuing to sat in 70-80s. Daughter called 911. EMS reports fever of 101.8. Her BP increased to 200s/110s. She was given 125 solumedrol, 1 g Tylenol, 1 spray nitro, 15L O2. Patient also reports diarrhea which is baseline for her. Denies CP, SOB, AP, N/V in ED. Allergies Allergy/AdvReac Type Severity Reaction Status Date / Time bee venom protein (honey bee) Allergy Severe Anaphylaxis Verified 10/19/24 22:43 latex Allergy Intermediate Rash Verified 10/19/24 22:43 oxycodone [From Percocet] Allergy Intermediate PER Verified 10/19/24 22:43 GMG--GETS LOOPY. Home Medications Medication Instructions Recorded Confirmed Type furosemide 20 mg tablet (Lasix) 20 mg PO QAM 03/01/19 10/19/24 History soft lens rinse,store solution 03/01/19 10/20/24 History (Saline Sensitive Eyes drops) buspirone 5 mg tablet 5 mg PO BID PRN Anxiety 10/31/19 10/19/24 History venlafaxine 75 mg tablet 75 mg PO BID 10/31/19 10/19/24 History albuterol sulfate 90 mcg/actuation 2 puff inhalation Q4H PRN 01/23/21 10/19/24 History aerosol inhaler Shortness Of Breath aspirin 81 mg tablet,delayed 81 mg PO QAM 01/23/21 10/19/24 History release fluticasone propionate 50 2 spray intranasal DAILY PRN 01/23/21 10/19/24 History mcg/actuation nasal Congestion spray,suspension carbamide peroxide 6.5 % ear drops 5 drp otic (ear) DAILY PRN 03/24/21 10/19/24 History (Debrox) NEEDED sodium chloride 0.65 % nasal spray 2 spray NA DIRECTED PRN 03/24/21 10/19/24 History aerosol (Saline Mist) Congestion budesonide 160 mcg-glycopyr 9 2 inh inhalation AMHS 12/17/22 10/19/24 History mcg-formot 4.8 mcg/actuation HFA inhaler (Breztri Aerosphere) metoprolol succinate 50 mg 50 mg PO HS 02/18/23 10/19/24 History tablet,extended release 24 hr levothyroxine 75 mcg tablet 75 mcg PO DAILYBB 07/12/24 10/19/24 History atorvastatin 40 mg tablet 40 mg PO QAM #30 tabs 07/14/24 10/19/24 Rx clopidogrel 75 mg tablet 75 mg PO QAM #30 tabs 07/14/24 10/19/24 Rx acetaminophen 160 mg/5 mL (5 mL) 650 mg PO Q6H PRN pain/fever 10/13/24 10/19/24 History oral solution baclofen 10 mg tablet 10 mg PO BID 10/13/24 10/19/24 History cyanocobalamin (vitamin B-12) 500 500 mcg PO DAILY 10/13/24 10/19/24 History mcg tablet (Vitamin B-12) fexofenadine 180 mg tablet 180 mg PO DAILY PRN Allergy 10/13/24 10/19/24 History Symptoms fluocinolone 0.01 % topical body 1 applic topical DAILY PRN ITCHY 10/13/24 10/19/24 History oil EARS lidocaine 4 % topical patch 1 patch topical DAILY PRN Pain 10/13/24 10/19/24 History metoprolol succinate 50 mg 75 mg PO QAM 10/13/24 10/19/24 History tablet,extended release 24 hr sodium chloride 3 % for 3 ml inhalation TID 10/13/24 10/19/24 History nebulization ipratropium 0.5 mg-albuterol 3 mg 3 ml NEB Q6R PRN shortness of 10/16/24 10/19/24 Rx (2.5 mg base)/3 mL nebulization breath or wheezing #180 mL soln isosorbide mononitrate 30 mg 30 mg PO QAM #30 tabs 10/16/24 10/19/24 Rx tablet,extended release 24 hr amoxicillin 250 mg-potassium 5 ml PO BID 10/19/24 10/19/24 History clavulanate 62.5 mg/5 mL oral suspension Past Med/Surg History Problem List (Updated 10/20/24 @ 02:00 by David Singh DO) Acute dyspnea (Acute) Acute UTI (Acute) Episode of shaking (Acute) Palpitations (Acute) CAD (coronary artery disease) Peripheral arterial disease (Acute) Subclavian artery stenosis, right Tracheostomy dependent (Acute) Carotid stenosis (Acute) Hyponatremia (Chronic) PEG (percutaneous endoscopic gastrostomy) adjustment/replacement/removal Dysphagia Medical History (Updated 10/20/24 @ 02:00 by David Singh DO) Femoral artery occlusion Hypothyroidism Mucus plugging of bronchi Tracheostomy complication Anxiety History of respiratory failure COPD (chronic obstructive pulmonary disease) Tracheostomy in place Herniated disc LOWER BACK Carpal tunnel syndrome Laryngeal cancer S/P TRACH + PEG TUBE PLACEMENT, RADIATION CAD (coronary artery disease) 2007 - LAD stent 2016 - LITTLE to mid LAD Hypertension Surgical History History of partial gastrectomy due to fistula from PEG tube History of tracheostomy History of laryngoscopy W/ BIOPSY History of heart artery stent S/P percutaneous endoscopic gastrostomy (PEG) tube placement History of bronchoscopy History of tracheostomy History of cardiac cath 2007 - [facility] - 2 STENTS PLACED - FOLLOWS W/ DR. MONTENEGRO 2016 - ABN STRESS TEST - [facility] - NO STENTS/ANGIOPLASTY History of tonsillectomy and adenoidectomy Family History Daughter Family history of reaction to anesthesia SLOW TO WAKE Father Family hx of colon cancer Other Colon cancer No pertinent family history Social History Smoking Status: Never smoker Tobacco Type: Cigarettes Cigarettes Per Day: 1-2; Second Hand Exposure: No; Do You Dip or Chew Tobacco: No; Hx Alcohol Use: No Hx Substance Use: No Preferred Language: Chinese Communication Ability: Effective Gusset Ripper Required: No Beliefs That Will Affect Care: None marital status: Current Living Situation: Alone Current Living Situation Comment: norma visits daily current occupational status: retired Feels Safe at Home: Yes Safety Concerns: Feels Safe At This Time Assistive Devices: Oxygen - Continuous Review of Systems Constitutional: as per Subjective / HPI Physical Exam Constitutional: + ill appearing, + thin and + cachectic Respiratory: decreased respiratory effort bilaterally, no rales, no wheezing, trach tube present Cardiovascular: Rate/Rhythm: regular rhythm and + tachycardic Heart Sounds: normal S1 and normal S2 no edema in b/l LE Gastrointestinal (Abdomen): normal bowel sounds, soft, nontender, no hepatos plenomegaly Skin: no rashes, warm and dry Psychiatric: A+Ox3, euthymic affect Results & Data Results & Data Vital Signs (Past 12 Hours) Vital Signs Temp Pulse Pulse Resp BP BP Pulse Ox 10/19/24 21:00 108 H 26 H 168/97 H 100 10/19/24 20:39 114 H 22 106/98 99 10/19/24 19:34 125 H 10/19/24 19:32 10/19/24 19:32 10/19/24 19:27 37.1 C 127 H 19 210/109 H 100 O2 Del Method O2 Flow Rate 10/19/24 21:00 10/19/24 20:39 Trach Collar 12 10/19/24 19:34 10/19/24 19:32 Trach Collar 10/19/24 19:32 Trach Collar 12 10/19/24 19:27 Trach Collar 12 Supervising Physician Co-Signing Physician Notes Attending addendum: I have physically seen this patient, have supervised the medical residents activities, and agree with the H&P unless as otherwise noted. Assessment and Plan: The patient is a 69-year-old female with a past medical history including laryngeal cancer, status post tracheostomy, COPD, hypertension, CAD, carotid stenosis, history of hyponatremia and PAD. She had called her daughter due to concerns regarding chest pain and shortness of breath, was brought to the emergency department, and is being admitted for further evaluation and treatment. Patient was reported at home to have a pulse ox in the 70 to 80% range. Sepsis due to COPD exacerbation and URI/tracheostomy- physical examination with poor air movement Chest x-ray with bilateral infiltrates DuoNebs 4 times daily, every 2 hours as needed Methylprednisolone 40 mg IV every 6 hours Mucinex 1200 mg p.o. twice daily Azithromycin 500 mg IV daily BioFire negative MRSA pending Continue home Bretzi Follow blood cultures and sputum cultures Serial CBC with differential and BMP Continue routine trach care CAD/hypertension- Continue metoprolol, isosorbide nitrate, ASA, clopidogrel and atorvastatin Holding home furosemide due to hypokalemia Initial troponin 27.9 with follow-up 47.5. Likely secondary to demand. Repeat in a.m. Hypokalemia/hypomagnesemia- Potassium 3.2 and magnesium 1.8 Give magnesium sulfate 1 g IV Potassium chloride to be replaced orally Resident Activity Tracking Resident Involvement: Resident Care Provided Care Provided: Adult [facility]
--- NOTE | 2024-10-19 22:41 | XRay Report ---
Exam(s): XR CXR 1 VIEW EXAM: XR Chest, 1 View CLINICAL HISTORY: Reason for exam: Dyspnea. TECHNIQUE: Frontal view of the chest. COMPARISON: Chest radiograph on 10/13/2024 FINDINGS: Hardware: Tracheostomy tube terminates in the region of the upper thoracic trachea. Lungs/pleura: Prominent lung markings and hazy opacities. Possible trace right pleural effusion. Heart/mediastinum: Atherosclerotic calcifications in the aorta. No cardiomegaly. Soft tissues: Unremarkable. Bones: No acute fracture. Upper abdomen: Normal. IMPRESSION: Prominent lung markings and hazy opacities, concerning for pulmonary vasculature congestion/edema. Possible trace right pleural effusion. Electronically signed by: Martine Vyas M.D. 10/19/24 22:40 PM
[2024-10-19] MEDS: ALBUT/IPRATROP 3MG/0.5MG NEB 3 ML VIAL NEB STA (22:52)
[2024-10-19] MEDS ORDERED: POLYETHYLENE (MIRALAX) 17 GM PACK PO PRN (23:08)
[2024-10-19] MEDS ORDERED: MELATONIN 3 MG TAB PO PRN (23:08)
[2024-10-19] MEDS ORDERED: MAGNESIUM HYDROXIDE SUSP 30 ML UDC PO PRN (23:08)
[2024-10-19] MEDS ORDERED: ACETAMINOPHEN 325 MG TAB PO PRN (23:08)
[2024-10-19] MEDS ORDERED: ONDANSETRON INJ 2 MG/ML 2 ML VIAL IV PRN (23:08)
[2024-10-19 23:16] LABS: Magnesium 1.8 mg/dl (1.7-2.4)
[2024-10-20] MEDS ORDERED: FLUTICASONE PROPIONATE NA SPR 16 GM BTL PRN (02:08)
[2024-10-20] MEDS: ALBUT/IPRATROP 3MG/0.5MG NEB 3 ML VIAL INH SCH (02:32)
[2024-10-20] MEDS: POTASSIUM CHLORIDE CRTAB 20 MEQ TABCR PO STA (02:52)
[2024-10-20] MEDS: AZITHROMYCIN 500 MG/255 ML BAG IV SCH (02:52)
[2024-10-20] MEDS: guaiFENesin 600 MG TABCR PO SCH (02:52)
--- NOTE | 2024-10-20 03:17 | Billing Data ---
Date of Service October 20, 2024 Coding Level of Care Code 92606 INT INP/OBS CARE
[2024-10-20] MEDS: MAGNESIUM SULFATE / D5W 1 GM/100 ML BAG IV ONE (03:37)
[2024-10-20] MEDS ORDERED: ENOXAPARIN INJ 30 MG/0.3 ML SYR SQ SCH (06:00)
[2024-10-20] MEDS: ENOXAPARIN INJ 30 MG/0.3 ML SYR SQ SCH (06:11)
[2024-10-20] MEDS: LEVOTHYROXINE SODIUM 75 MCG TABLET PO SCH (06:11)
[2024-10-20 07:04] LABS: Hematocrit (blood only) 32.5 % (37.0-47.0); Hemoglobin 10.9 g/dl (12.0-16.0); Mean Corpuscular Hemoglobin 30.5 pg (25.0-34.0); Mean Corpuscular Volume 91.0 fL (80.0-100.0); Platelet Count 311 K/uL (130-400); RDW Standard Deviation 41.4 fL (36.4-46.3); Red Blood Count 3.57 M/uL (4.20-5.40); White Blood Count 5.60 K/ul (4.8-10.8)
[2024-10-20 07:25] LABS: Anion Gap 8.0 (3-11); Blood Urea Nitrogen 12.0 mg/dl (6-23); Calcium 9.0 mg/dl (8.6-10.3); Carbon Dioxide 32.0 mmol/L (21-32); Chloride 96.0 mmol/L (98-107); Creatinine Clr Calc Pharmacy 61.9 ml/min; Glucose 177.0 mg/dl (70-99(Fasting)); Magnesium 2.3 mg/dl (1.7-2.4); Potassium 3.4 mmol/L (3.5-5.1); Sodium 136.0 mmol/L (136-145)
[2024-10-20 07:40] LABS: Immature Granulocytes # (auto) 0.04 K/uL (0.01-0.20); Immature Granulocytes % (auto) 0.7 %; Ovalocytes 1+; Polychromasia 1+
[2024-10-20] MEDS: UMECLIDINIUM/VILANTEROL 62.5/25MCG 7 PUFFS/INHALER INH SCH (07:59)
[2024-10-20] MEDS: FLUTICASONE FUROATE 200MCG 14 PUFFS/INHALER INH SCH (07:59)
[2024-10-20] MEDS: busPIRone 5 MG TAB PO PRN (08:00)
[2024-10-20] MEDS: VENLAFAXINE HCL 37.5 MG TAB PO SCH (08:00)
[2024-10-20] MEDS ORDERED: cefTRIAXone SODIUM 2,000 MG/50 ML BAG IV SCH (08:00)
[2024-10-20] MEDS: CLOPIDOGREL BISULFATE 75 MG TAB PO SCH (08:00)
[2024-10-20] MEDS: BACLOFEN 10 MG TAB PO SCH (08:01)
[2024-10-20] MEDS: ISOSORBIDE MONO EXTENDED REL 30 MG TABCR PO SCH (08:01)
[2024-10-20] MEDS: ATORVASTATIN 40 MG TAB PO SCH (08:01)
[2024-10-20] MEDS: ASPIRIN 81 MG ECTAB PO SCH (08:01)
[2024-10-20] MEDS: METOPROLOL SUCC 25MG EXT REL TAB PO SCH (08:02)
[2024-10-20] MEDS: POLYETHYLENE (MIRALAX) 17 GM PACK PO SCH (08:03)
[2024-10-20] MEDS: POTASSIUM CHLORIDE CRTAB 20 MEQ TABCR PO SCH (08:09)
[2024-10-20] MEDS: cefTRIAXone SODIUM 1,000 MG MINI-B 50ML IV SCH (08:41)
[2024-10-20] MEDS: BUMETANIDE 1 MG in SYRINGE 0 ML IV ONE (08:41)
--- NOTE | 2024-10-20 11:04 | Electrocardiogram Report ---
Test Reason : Blood Pressure : */* mmHG Vent. Rate : 93 BPM Atrial Rate : 93 BPM P-R Int : 168 ms QRS Dur : 80 ms QT Int : 340 ms P-R-T Axes : -26 -14 -22 degrees QTcB Int : 422 ms Normal sinus rhythm Poor R wave progression, consider anterior GA vs. lead placement vs. LVH Abnormal ECG When compared with ECG of 13-Oct-2024 14:27, Questionable change in QRS axis ST no longer elevated in Inferior leads T wave inversion now evident in Inferior leads Confirmed by Clinton Epstein ([id number]) on 10/20/2024 11:04:26 AM Referred By: REFERRED SELF Confirmed By: Clinton Epstein
--- NOTE | 2024-10-20 12:06 | Hospitalist Progress Note ---
Date of Service October 20, 2024 Assessment & Plan (1) Chest pain, rule out acute myocardial infarction: (2) Chronic hypoxic respiratory failure, on home oxygen therapy: (3) Peripheral arterial disease: Plan In summary this is a 69-year-old female who presented with chest pain and as sociated shortness of breath after recent hospital discharge at which time she was admitted for an acute urinary tract infection; initially concerning for "sepsis secondary to COPD exacerbation" however appears to be more consistent with a potential acute coronary event with potential new onset heart failure. #Chest pain, rule out ACS // Hypertension // Hyperlipidemia // Peripheral and coronary arterial disease With regard to the patient's presenting chest pain it was sudden in onset and persistent; there was an increased discomfort with activity, though minimal; t he patient describes today that they had similar symptomatology around the time of her previous heart catheterizations though this does not seem as severe in magnitude; patient has numerous risk factors and comorbidities for increase in the risk of recurrent ACS; initial EKG was without concerning findings for ischemia; troponin trend 47.5, 71.8; BNP elevated at presentation 965, progressively increased on the morning of 10/20-1462; URMILA score 137 -Nursing to contact attending if patient develops recurrent or new anginal equivalent - continue aspirin 81 mg p.o. daily - continue clopidogrel 75 mg p.o. daily - continue atorvastatin, Imdur, metoprolol succinate - continue troponin trend to peak #Respiratory distress // mild COPD Exacerbation // Chronic respiratory failure with home oxygen therapy via tracheostomy Patient presented with increased respiratory distress though was not frankly hypoxic, only requiring their usual home O2 supplementation via tracheostomy; the patient denies any recent increase in sputum production via tracheostomy, nor increased cough; chest x-ray obtained at the time of admission did reveal cephalization of the vessels bilaterally, haziness throughout all lung nugent without any specified consolidation, as well as fluid in the horizontal fissure concerning for a degree of volume overload in combination with an elevated BNP as detailed above; overall presentation is concerning for potential new onset heart failure exacerbation, TTE most recently obtained in 05/2024 revealed a left ventricular ejection fraction of 60% with concentric left ventricular wall thickness increase, basal inferior wall hypokinesis, as well as estimated pulmonary artery systolic pressure 47 mmHg without further details regarding the right ventricle Administer bumetanide 1 mg IV one-time, reassess urine output - Nursing to notify of new or increased oxygen requirement, sustained heart rate of greater than 120 or less than 50 bpm - Measure intake and output every shift - Follow daily RFP and Magnesium - Pending TTE - Continue home inhaler therapies #Subacute bacterial cystitis Recently discharged with course of Augmentin; continues on ceftriaxone in the setting of questionable COPD exacerbation, adequate coverage with ceftriaxone alone #Hypothyroidism Continue home levothyroxine DVT ppx: continue enoxaparin 30 mg SQ daily Admission and Anticipated Discharge Date Admission Date: October 19, 2024 Subjective Ms. 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 No acute overnight events; the patient's symptoms have significantly improved this morning, she is without specific concerns regarding her initial presenting complaint other than its initial cause. Review of Systems Review of Systems: Remaining review of constitutional, pulmonary, cardiovascular, gastrointestinal, genitourinary, musculoskeletal, neurologic, and integumentary systems was unremarkable except for pertinent positive and negative findings noted in the HPI above. Physical Exam Physical Exam: General: Adult female in no acute distress Vital Signs: reviewed HEENT: pupils equally round reactive to light; extraocular muscles intact; tacky mucous membranes Neck: tracheostomy site appears well, no significant increase in secretions nor epithelial ulceration/maceration Pulmonary: symmetric chest sparks rise without restrictions; diminished air movement throughout all lung nugent though clear to auscultation Cardiovascular: regular rate and rhythm without murmurs, rubs, or gallops; S1 and S2 normal; bilateral radial and posterior tibial pulse 2+; trace bilateral lower extremity edema distal of the mid leg Neurologic: CN II-XII grossly intact; no discernible focal weakness nor paresthesias Results & Data Results & Data Vital Signs (Past 12 Hours) Vital Signs Temp Pulse Pulse Pulse Resp BP BP 10/20/24 11:51 36.7 C 89 19 119/54 L 10/20/24 10:00 10/20/24 07:57 37.1 C 97 H 26 H 10/20/24 07:48 129/64 10/20/24 07:08 82 15 10/20/24 02:41 98 H 10/20/24 02:08 10/20/24 02:08 36.7 C 102 H 18 100/71 10/20/24 02:08 10/20/24 01:10 87 20 103/52 L Pulse Ox O2 Del Method O2 Flow Rate FiO2 10/20/24 11:51 87 L Trach Collar 10 10/20/24 10:00 Trach Collar 40 10/20/24 07:57 94 Room Air 10/20/24 07:48 10/20/24 07:08 100 Trach Collar 50 10/20/24 02:41 10/20/24 02:08 Trach Collar 9 10/20/24 02:08 96 Trach Collar 9 10/20/24 02:08 Trach Collar 9 10/20/24 01:10 97 T-Piece 2 PG Care Time/CCT Total # of Minutes Spent Total Time Spent with Patient: Total time spent is greater than 50% in coordination of care (as documented) at patient's floor/unit and/or counseling patient: Coding Level of Care Code 74847 SUB INP/OBS CARE 2/35MIN Diagnoses Chest pain, rule out acute myocardial infarction R07.9 Chronic hypoxic respiratory failure, on home oxygen therapy J96.11; Z99.81 Peripheral arterial disease I73.9
[2024-10-20] MEDS ORDERED: SODIUM CHLORIDE 0.65% NA SOLN 45 ML (OCEAN) PRN (13:01)
[2024-10-20] MEDS ORDERED: CARBAMIDE PEROXIDE 6.5% 15 ML BTL OT PRN (13:01)
[2024-10-20 13:31] LABS: A calco-baum cmplx NotReported Not Detected (NotDetected); Bact fragilis Not Reported Not Detected (NotDetected); Blood Culture Id Panel PCR Panel Negative (NotDetected); C auris Not Reported Not Detected (NotDetected); Calbicans Not Reported Not Detected (NotDetected); Candida glabrata Not Reported Not Detected (NotDetected); Candida krusei Not Reported Not Detected (NotDetected); Cneoformans/gatti Not Reported Not Detected (NotDetected); Cparapsilosis Not Reported Not Detected (NotDetected); Ctropicalis Not Reported Not Detected (NotDetected); E cloacae compx Not Reported Not Detected (NotDetected); Efaecalis Not Reported Not Detected (NotDetected); Efaecium Not Reported Not Detected (NotDetected); Enterobacterales Not Reported Not Detected (NotDetected); Escherichia coli Not Reported Not Detected (NotDetected); H influenzae Not Reported Not Detected (NotDetected); K aerogenes Not Reported Not Detected (NotDetected); Koxytoca Not Reported Not Detected (NotDetected); Kpneumoniae grp Not Reported Not Detected (NotDetected); Lmonocyt Not Reported Not Detected (NotDetected); N meningitidis Not Reported Not Detected (NotDetected); P aeruginosa Not Reported Not Detected (NotDetected); Proteus spp Not Reported Not Detected (NotDetected); Salmonella spp Not Reported Not Detected (NotDetected); Staph lugdunensis Not Reported Not Detected (NotDetected); Staph spp. Not Reported Not Detected (NotDetected); Staphaureus Not Reported Not Detected (NotDetected); Staphepi Not Reported Not Detected (NotDetected); Stenmaltophilia Not Reported Not Detected (NotDetected); Strep agal(GrpB) Not Reported Not Detected (NotDetected); Strep pneum Not Reported Not Detected (NotDetected); Strep pyog (GrpA) Not Reported Not Detected (NotDetected); Strep spp Not Reported Not Detected (NotDetected)
[2024-10-20] MEDS ORDERED: TRIAMCINOLONE ACET 0.025% CR 15 GM TUBE TOP PRN (13:55)
--- NOTE | 2024-10-20 14:26 | Communication Note ---
Date of Service: October 20, 2024 Noted positive blood culture from initial admission yielding gram negative bacilli; no notable genetic resistances via PCR testing. Suspect this is likely a contaminant however will remain on ceftriaxone until further speciation is available.
[2024-10-20] MEDS ORDERED: SODIUM CHLOR 7% 4 ML NEB NEB SCH (19:00)
[2024-10-20] MEDS ORDERED: SODIUM CHLORIDE 0.9% NEBU SOLN 3 ML NEB SCH (19:00)
[2024-10-20] MEDS: SODIUM CHLOR 7% 4 ML NEB NEB SCH (19:16)
[2024-10-20] MEDS: REMOVE LIDODERM PATCH SCH (21:02)
[2024-10-20] MEDS: ACETAMINOPHEN 325 MG TAB PO PRN (21:10)
[2024-10-20] MEDS: METOPROLOL SUCC 50MG EXT REL TAB PO SCH (21:12)
--- NOTE | 2024-10-21 07:08 | Hospitalist Progress Note ---
Date of Service October 21, 2024 Assessment & Plan (1) Chest pain, rule out acute myocardial infarction: (2) Chronic hypoxic respiratory failure, on home oxygen therapy: (3) Peripheral arterial disease: Plan In summary this is a 69-year-old female who presented with chest pain and as sociated shortness of breath after recent hospital discharge at which time she was admitted for an acute urinary tract infection; initially concerning for "sepsis secondary to COPD exacerbation" however appears to be more consistent with a potential acute coronary event with potential new onset heart failure. #Chest pain, rule out ACS // Hypertension // Hyperlipidemia // Peripheral and coronary arterial disease With regard to the patient's presenting chest pain it was sudden in onset and persistent; there was an increased discomfort with activity, though minimal; the patient describes today that they had similar symptomatology around the time of her previous heart catheterizations though this does not seem as severe in magnitude; patient has numerous risk factors and comorbidities for increase in the risk of recurrent ACS; initial EKG was without concerning findings for ischemia; troponin trend 47.5, 71.8; BNP elevated at presentation 965, progressively increased on the morning of 10/20 to 1462; URMILA score 137 - nursing to contact attending if patient develops recurrent or new anginal equivalent - continue aspirin 81 mg p.o. daily - continue clopidogrel 75 mg p.o. daily - continue atorvastatin, Imdur, metoprolol succinate - continue troponin trend to peak #Respiratory distress // mild COPD Exacerbation // Chronic respiratory failure with home oxygen therapy via tracheostomy Patient presented with increased respiratory distress though was not frankly hypoxic, only requiring their usual home O2 supplementation via tracheostomy; the patient denies any recent increase in sputum production via tracheostomy, nor increased cough; chest x-ray obtained at the time of admission did reveal cephalization of the vessels bilaterally, haziness throughout all lung nugent without any specified consolidation, as well as fluid in the horizontal fissure concerning for a degree of volume overload in combination with an elevated BNP as detailed above; overall presentation is concerning for potential new onset heart failure exacerbation, TTE most recently obtained in 05/2024 revealed a left ventricular ejection fraction of 60% with concentric left ventricular wall thickness increase, basal inferior wall hypokinesis, as well as estimated pulmonary artery systolic pressure 47 mmHg without further details regarding the right ventricle; current urine output rate of 1.95 mL/kg/hr - Continue bumetanide 1 mg IV one-time, follow urine output - Nursing to notify of new or increased oxygen requirement, sustained heart rate of greater than 120 or less than 50 bpm - Measure intake and output every shift - Follow daily RFP and Magnesium - Pending TTE - Continue home inhaler therapies #Subacute bacterial cystitis Recently discharged with course of Augmentin; continues on ceftriaxone in the setting of questionable COPD exacerbation, adequate coverage with ceftriaxone alone #Hypothyroidism Continue home levothyroxine DVT ppx: continue enoxaparin 30 mg SQ daily Admission and Anticipated Discharge Date Admission Date: October 19, 2024 Subjective Ms. 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 No acute overnight events; the patient's symptoms have significantly improved this morning, she is without specific concerns regarding her initial presenting complaint other than its initial cause. Review of Systems Review of Systems: Remaining review of constitutional, pulmonary, cardiovascular, gastrointestinal, genitourinary, musculoskeletal, neurologic, and integumentary systems was unremarkable except for pertinent positive and negative findings noted in the HPI above. Physical Exam Physical Exam: General: Adult female in no acute distress Vital Signs: reviewed HEENT: pupils equally round reactive to light; extraocular muscles intact; tacky mucous membranes Neck: tracheostomy site appears well, no significant increase in secretions nor epithelial ulceration/maceration Pulmonary: symmetric chest sparks rise without restrictions; diminished air movement throughout all lung nugent though clear to auscultation Cardiovascular: regular rate and rhythm without murmurs, rubs, or gallops; S1 and S2 normal; bilateral radial and posterior tibial pulse 2+; no notable lower extremity edema distal of the mid leg Neurologic: CN II-XII grossly intact; no discernible focal weakness nor paresthesias Results & Data Results & Data Vital Signs (Past 12 Hours) Vital Signs Temp Pulse Pulse Resp BP Pulse Ox Pulse Ox 10/21/24 03:05 36.3 C L 87 18 161/65 H 97 10/21/24 01:29 85 10/21/24 00:22 87 18 99 10/20/24 23:09 99 10/20/24 22:17 36.5 C 88 18 137/68 99 10/20/24 21:17 10/20/24 19:43 36.8 C 102 H 20 136/75 100 10/20/24 19:20 99 H 16 97 O2 Del Method O2 Del Method O2 Flow Rate O2 Flow Rate FiO2 10/21/24 03:05 Trach Collar 10 10/21/24 01:29 10/21/24 00:22 Trach Collar 9 40 10/20/24 23:09 Trach Collar 9 10/20/24 22:17 Trach Collar 10 10/20/24 21:17 Nasal Cannula 10 10/20/24 19:43 Trach Collar 10/20/24 19:20 Trach Collar 10 40 PG Care Time/CCT Total # of Minutes Spent Total Time Spent with Patient: Total time spent is greater than 50% in coordination of care (as documented) at patient's floor/unit and/or counseling patient: Coding Level of Care Code 29650 SUB INP/OBS CARE 2/35MIN Diagnoses Chest pain, rule out acute myocardial infarction R07.9 Chronic hypoxic respiratory failure, on home oxygen therapy J96.11; Z99.81 Peripheral arterial disease I73.9
[2024-10-21] MEDS: CYANOCOBALAMIN (B-12) 500 MCG TABLET PO SCH (11:36)
--- NOTE | 2024-10-21 13:37 | Electrocardiogram Report ---
Test Reason : Blood Pressure : */* mmHG Vent. Rate : 127 BPM Atrial Rate : 127 BPM P-R Int : 160 ms QRS Dur : 78 ms QT Int : 222 ms P-R-T Axes : 102 78 -86 degrees QTcB Int : 322 ms Poor data quality, interpretation may be adversely affected Sinus tachycardia Septal infarct (cited on or before 14-Oct-2024) Abnormal ECG When compared with ECG of 14-Oct-2024 14:35, ST now depressed in Inferior leads ST now depressed in Anterolateral leads T wave inversion more evident in Anterolateral leads Confirmed by Param Blake ([id number]) on 10/21/2024 1:37:42 PM Referred By: REFERRED SELF Confirmed By: Param Blake
--- NOTE | 2024-10-21 13:57 | Communication Note ---
Date of Service: October 21, 2024 Speciation of blood culture reviewed with Bacillus cereus; almost certainly a contaminant given the lack of antibiotic coverage for this particular species with the patient's current regimen (Ceftriaxone) and her progressive clinical improvement despite this.
[2024-10-21] MEDS: POTASSIUM CHLORIDE CRTAB 20 MEQ TABCR PO SCH (15:25)
[2024-10-21] MEDS: POTASSIUM CHLORIDE 20 MEQ/15 ML UDC PO SCH (16:21)
[2024-10-21] MEDS: FEXOFENADINE HCL 180 MG TAB PO PRN (20:52)
[2024-10-21] MEDS: LIDOCAINE 5% 1 PATCH TD PRN (21:05)
[2024-10-22] MEDS: ALBUT/IPRATROP 3MG/0.5MG NEB 3 ML VIAL NEB PRN (05:31)
--- NOTE | 2024-10-22 07:05 | Hospitalist Progress Note ---
Date of Service October 22, 2024 Assessment & Plan (1) Chest pain, rule out acute myocardial infarction: (2) Chronic hypoxic respiratory failure, on home oxygen therapy: (3) Peripheral arterial disease: Plan In summary this is a 69-year-old female who presented with chest pain and as sociated shortness of breath after recent hospital discharge at which time she was admitted for an acute urinary tract infection; initially concerning for "sepsis secondary to COPD exacerbation" however appears to be more consistent with a potential acute coronary event with potential new onset heart failure. #Chest pain, rule out ACS // Hypertension // Hyperlipidemia // Peripheral and coronary arterial disease With regard to the patient's presenting chest pain it was sudden in onset and persistent; there was an increased discomfort with activity, though minimal; the patient describes today that they had similar symptomatology around the time of her previous heart catheterizations though this does not seem as severe in magnitude; patient has numerous risk factors and comorbidities for increase in the risk of recurrent ACS; initial EKG was without concerning findings for ischemia; troponin trend 47.5, 71.8; BNP elevated at presentation 965, progressively increased on the morning of 10/20 to 1462; URMILA score 137; TTE obtained on 10/21 without significant previously obtained assessments - nursing to contact attending if patient develops recurrent or new anginal equivalent - continue aspirin 81 mg p.o. daily - continue clopidogrel 75 mg p.o. daily - continue atorvastatin, Imdur, metoprolol succinate #Respiratory distress // mild COPD Exacerbation // Chronic respiratory failure with home oxygen therapy via tracheostomy Patient presented with increased respiratory distress though was not frankly hypoxic, only requiring their usual home O2 supplementation via tracheostomy; TTE obtained 10/21 without significant change from prior assessment; current urine output rate of 0.6 mL/kg/hr, suggesting adequate diuresis - Nursing to notify of new or increased oxygen requirement, sustained heart rate of greater than 120 or less than 50 bpm - Discontinue Ceftriaxone with completed course of treatment - Measure intake and output every shift - Follow daily RFP and Magnesium - Continue home inhaler therapies #Subacute bacterial cystitis Complete antibiotic course with ceftriaxone on 10/22 #Hypothyroidism Continue home levothyroxine DVT ppx: continue enoxaparin 30 mg SQ daily Admission and Anticipated Discharge Date Admission Date: October 19, 2024 Anticipated date of discharge: 10/23/24 Subjective Ms. 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 multiple episodes overnight requiring respiratory therapy intervention for thickened sputum expectoration, but was not associated with significant desaturation; other than the episodes overnight, the patient feels improved this morning, curious about discharge Review of Systems Review of Systems: Remaining review of constitutional, pulmonary, cardiovascular, gastrointes tinal, genitourinary, musculoskeletal, neurologic, and integumentary systems was unremarkable except for pertinent positive and negative findings noted in the HPI above. Physical Exam Physical Exam: General: Adult female in no acute distress Vital Signs: reviewed HEENT: pupils equally round reactive to light; extraocular muscles intact; tacky mucous membranes Neck: tracheostomy site appears well, no significant increase in secretions nor epithelial ulceration/maceration Pulmonary: symmetric chest sparks rise without restrictions; diminished air movement throughout all lung nugent though clear to auscultation Cardiovascular: regular rate and rhythm without murmurs, rubs, or gallops; S1 an d S2 normal; bilateral radial and posterior tibial pulse 2+; no notable lower extremity edema distal of the mid leg Neurologic: CN II-XII grossly intact; no discernible focal weakness nor paresthesias Results & Data Results & Data Vital Signs (Past 12 Hours) Vital Signs Temp Pulse Pulse Resp BP Pulse Ox Pulse Ox 10/22/24 05:31 96 H 26 H 96 10/22/24 02:49 36.2 C L 86 18 150/72 H 91 10/22/24 02:25 88 10/22/24 00:13 89 17 96 10/21/24 23:23 10/21/24 23:00 93 10/21/24 22:25 36.5 C 88 18 175/68 H 94 10/21/24 19:28 36.8 C 99 H 18 165/81 H 92 10/21/24 19:21 97 H 19 91 O2 Del Method O2 Del Method O2 Flow Rate O2 Flow Rate FiO2 10/22/24 05:31 Trach Collar 9 35 10/22/24 02:49 Trach Collar 9 10/22/24 02:25 10/22/24 00:13 Trach Collar 9 35 10/21/24 23:23 Trach Collar 9 10/21/24 23:00 Trach Collar 9 10/21/24 22:25 Trach Collar 9 10/21/24 19:28 Trach Collar 8 10/21/24 19:21 Trach Collar 9 35 PG Care Time/CCT Total # of Minutes Spent Total Time Spent with Patient: Total time spent is greater than 50% in coordination of care (as documented) at patient's floor/unit and/or counseling patient: Coding Level of Care Code 67412 SUB INP/OBS CARE 2/35MIN Diagnoses Chest pain, rule out acute myocardial infarction R07.9 Chronic hypoxic respiratory failure, on home oxygen therapy J96.11; Z99.81 Peripheral arterial disease I73.9
[2024-10-22 08:25] LABS: Anion Gap 7.0 (3-11); Blood Urea Nitrogen 15.0 mg/dl (6-23); Calcium 9.0 mg/dl (8.6-10.3); Carbon Dioxide 31.0 mmol/L (21-32); Chloride 98.0 mmol/L (98-107); Creatinine Clr Calc Pharmacy 58.8 ml/min; Glucose 90.0 mg/dl (70-99(Fasting)); Potassium 4.6 mmol/L (3.5-5.1); Sodium 136.0 mmol/L (136-145)
[2024-10-22 16:13] VITALS: BP 128/55; RESP 16; TEMP 97.7; O2SAT 92
[2024-10-22 18:08] VITALS: PULSE 82
[2024-10-22] MEDS ORDERED: SODIUM CHLOR 7% 4 ML NEB NEB SCH (19:00)
--- NOTE | 2024-10-23 12:39 | Discharge Summary ---
Discharge Summary Date of Service October 23, 2024 Principal Dx & Hospital Course #1 = Principal Diagnosis (1) Chest pain, rule out acute myocardial infarction: (2) Chronic hypoxic respiratory failure, on home oxygen therapy: (3) Peripheral arterial disease: Plan In summary this is a 69-year-old female who presented with chest pain and associated shortness of breath after recent hospital discharge at which time she was admitted for an acute urinary tract infection; initially concerning for "sepsis secondary to COPD exacerbation" however appears to be more consistent with a potential acute coronary event with potential new onset heart failure. #Chest pain, rule out ACS // Hypertension // Hyperlipidemia // Peripheral and coronary arterial disease With regard to the patient's presenting chest pain it was sudden in onset and persistent; there was an increased discomfort with activity, though minimal; the patient describes today that they had similar symptomatology around the time of her previous heart catheterizations though this does not seem as severe in magnitude; patient has numerous risk factors and comorbidities for increase in the risk of recurrent ACS; initial EKG was without concerning findings for ischemia; troponin trend 47.5, 71.8; BNP elevated at presentation 965, progressively increased on the morning of 10/20 to 1462; URMILA score 137; TTE obtained on 10/21 without significant previously obtained assessments - nursing to contact attending if patient develops recurrent or new anginal equivalent - continue aspirin 81 mg p.o. daily - continue clopidogrel 75 mg p.o. daily - continue atorvastatin, Imdur, metoprolol succinate #Respiratory distress // mild COPD Exacerbation // Chronic respiratory failure with home oxygen therapy via tracheostomy Patient presented with increased respiratory distress though was not frankly hypoxic, only requiring their usual home O2 supplementation via tracheostomy; TTE obtained 10/21 without significant change from prior assessment; current urine output rate of 0.6 mL/kg/hr, suggesting adequate diuresis - Nursing to notify of new or increased oxygen requirement, sustained heart rate of greater than 120 or less than 50 bpm - Discontinue Ceftriaxone with completed course of treatment - Measure intake and output every shift - Follow daily RFP and Magnesium - Continue home inhaler therapies #Subacute bacterial cystitis Complete antibiotic course with ceftriaxone on 10/22 #Hypothyroidism Continue home levothyroxine DVT ppx: continue enoxaparin 30 mg SQ daily Admission HPI Per Admitting Provider Ms. Hardy is a 69 y.o. female with history of laryngeal cancer, status post tracheostomy, history of CAD, who is admitted to the hospital due to SOB and CP. Patient states around 4:30am she was seated in her bed and felt like she could not breathe. Also reports mid-line chest pain at this time that radiated to her upper back. States her SpO2 was in 70s at this time and BP dropped to 80s/60s. She took a DuoNeb treatment at this time as well as 2 puffs of Breztri. She called daughter and they decided to wait to see how she felt throughout day. Around dinner time, noted her SOB was worsening and she was continuing to sat in 70-80s. Daughter called 911. EMS reports fever of 101.8. Her BP increased to 200s/110s. She was given 125 solumedrol, 1 g Tylenol, 1 spray nitro, 15L O2. Patient also reports diarrhea which is baseline for her. Denies CP, SOB, AP, N/V in ED. Discharge Exam General: Adult female in no acute distress Vital Signs: reviewed HEENT: pupils equally round reactive to light; extraocular muscles intact; tacky mucous membranes Neck: tracheostomy site appears well, no significant increase in secretions nor epithelial ulceration/maceration Pulmonary: symmetric chest sparks rise without restrictions; diminished air movement throughout all lung nugent though clear to auscultation Cardiovascular: regular rate and rhythm without murmurs, rubs, or gallops; S1 and S2 normal; bilateral radial and posterior tibial pulse 2+; no notable lower extremity edema distal of the mid leg Neurologic: CN II-XII grossly intact; no discernible focal weakness nor paresthesias Discharge Plan Discharge Items Patient Disposition: Home - Self-Care Reason For Visit: SOB, CP Discharge Diagnosis: COPD exacerbation with volume overload Condition on Discharge: Fair Activity: Resume your previous activity Non-emergency contact: Primary Care Provider and Electronic Train Control Technician Call non-emergency contact if: you have any medication questions Follow-up/Referrals: Paola Wilson MD [Primary Care Provider] - Diet: Heart Healthy Fluids: 1800ml (7 cups) Addtl Attending Provider Instructions: Please maintain your follow up appointments as scheduled with your primary care provider and specialists. Pending Studies at Discharge: No Stand-Alone Forms: My [facility] [employer] Medications and DC Order Prescriptions: New bumetanide 1 mg tablet 1 mg PO Q OTHER DAY 30 Days Qty: 15 0RF Rx Instructions: If tracheal secretions thicken significantly causing difficulty clearing, hold dose one time then resume at normal interval Continued buspirone 5 mg tablet 5 mg PO BID PRN (Reason: Anxiety) venlafaxine 75 mg tablet 75 mg PO BID Rx Instructions: take with food (DME) Saline Sensitive Eyes Drops MISCELLANEOUS Rx Instructions: 2 drops daily as needed Debrox 6.5 % Drops 5 drp OTIC (EAR) DAILY PRN (Reason: NEEDED) Saline Mist 0.65 % aerosol,spray 2 spray NA DIRECTED PRN (Reason: Congestion) Breztri Aerosphere 160-9-4.8 mcg/actuation HFA aerosol inhaler 2 inh INHALATION [facility] aspirin 81 mg Tablet,Delayed Release (Dr/Ec) 81 mg PO QAM metoprolol succinate 50 mg tablet extended release 24 hr 50 mg PO HS levothyroxine 75 mcg tablet 75 mcg PO DAILYBB atorvastatin 40 mg Tablet 40 mg PO QAM Qty: 30 0RF clopidogrel 75 mg Tablet 75 mg PO QAM Qty: 30 0RF lidocaine 4 % Adhesive Patch,Medicated 1 patch TOPICAL DAILY PRN (Reason: Pain) Rx Instructions: ON FOR 12 HR. THEN REMOVE metoprolol succinate 50 mg Tablet Extended Release 24 Hr 75 mg PO QAM fexofenadine 180 mg Tablet 180 mg PO DAILY PRN (Reason: Allergy Symptoms) cyanocobalamin (vitamin B-12) [Vitamin B-12] 500 mcg Tablet 500 mcg PO DAILY baclofen 10 mg Tablet 10 mg PO BID fluocinolone 0.01 % Oil 1 applic TOPICAL DAILY PRN (Reason: ITCHY EARS) acetaminophen 160 mg/5 mL (5 mL) Solution 650 mg PO Q6H PRN (Reason: pain/fever) isosorbide mononitrate 30 mg Tablet Extended Release 24 Hr 30 mg PO QAM Qty: 30 0RF Changed ipratropium-albuterol 0.5 mg-3 mg(2.5 mg base)/3 mL Solution For Nebulization 3 ml NEB Q2H PRN (Reason: shortness of breath or wheezing) Qty: 180 0RF sodium chloride 3 % Solution For Nebulization 3 ml INHALATION Q6H PRN (Reason: thickened secretions) 30 Days Qty: 120 0RF albuterol sulfate 90 mcg/actuation HFA aerosol inhaler 2 puff INHALATION Q2H PRN (Reason: Shortness Of Breath) Qty: 0 0RF Held fluticasone propionate 50 mcg/actuation [place],Suspension 2 spray INTRANASAL DAILY PRN (Reason: Congestion) Hold Instructions: Resume on 11/06/24. Discontinued furosemide [Lasix] 20 mg Tablet 20 mg PO QAM amoxicillin-pot clavulanate 250-62.5 mg/5 mL suspension for reconstitution 5 ml PO BID Rx Instructions: 10/19/24 : LAST DOSE SCHEDULED FOR 10/19/24 IN PM - NOT TAKEN Discharge Orders: Discharge Order (Routine); Ordered 10/22/24 Ordered By: John Londono Admission Data Admit Date/Time: 10/19/24 23:09 Attending Provider: John Londono Admit Provider: Vanessa Perez Primary Care Provider: Paola Wilson Other Providers: Maurisio Zaidi; [place] Other Interventions: Discharge Summary Assessment (RN) Last Done: 10/22/24 17:57 Hospital Stay Data Consultations 10/19/24 21:32 ED Decision to Admit Stat Pending Results Patient Have Any Pending Studies at Discharge: No Discharge Instructions Given to Patient (Per Discharging Provider) Please maintain your follow up appointments as scheduled with your primary care provider and specialists. Total Time Total Time Spent Total Time Spent (In Minutes): 65 Coding Level of Care Code 69201 INP/OBS DISCH >30 MIN Diagnoses Chest pain, rule out acute myocardial infarction R07.9 Chronic hypoxic respiratory failure, on home oxygen therapy J96.11; Z99.81 Peripheral arterial disease I73.9
--- NOTE | 2024-10-24 07:59 | Coding Query ---
To promote full compliance with coding requirements relating to patient care, provider participation is requested in all cases of hcc coders uncertainty. Please assist us with the question(s) below: Coding Question(s): The diagnosis below was documented in the H&P then subsequently fell off all further documentation. Please indicate if it is still a possible diagnosis or ruled out. Physician's Response(s): SEPSIS ( ) Diagnosed and POA ( ) Diagnosed and not POA (X) Ruled out ( ) Other (please specify) MTDD
== END 2024-10-22 19:44 | disposition home or self-care (01) | DRG 191 ==
LOC: ED 19:25 → SUATTDRO 23:09 → 2E 23:09 → 2N 10-20 12:48

== ENCOUNTER 2024-10-31 21:09 | Inpatient (IN) ==
[2024-10-31 21:36] LABS: Hematocrit (blood only) 33.9 % (37.0-47.0); Hemoglobin 11.3 g/dl (12.0-16.0); Immature Granulocytes # (auto) 0.04 K/uL (0.01-0.20); Immature Granulocytes % (auto) 0.5 %; Mean Corpuscular Hemoglobin 30.9 pg (25.0-34.0); Mean Corpuscular Volume 92.6 fL (80.0-100.0); Platelet Count 317 K/uL (130-400); RDW Standard Deviation 44.5 fL (36.4-46.3); Red Blood Count 3.66 M/uL (4.20-5.40); White Blood Count 8.15 K/ul (4.8-10.8)
[2024-10-31 21:54] LABS: Alanine Aminotransferase 15.0 U/L (7-52); Albumin Globulin Ratio 0.9 (0.9-2); Alkaline Phosphatase 78.0 U/L (34-104); Anion Gap 8.0 (3-11); Bilirubin,Total 0.5 mg/dl (0.2-1.0); Blood Urea Nitrogen 18.0 mg/dl (6-23); Calcium 9.6 mg/dl (8.6-10.3); Carbon Dioxide 31.0 mmol/L (21-32); Chloride 96.0 mmol/L (98-107); Creatinine Clr Calc Pharmacy 54.9 ml/min; Globulin 4.1 gm/dl (2.5-4.0); Glucose 124.0 mg/dl (70-99(Fasting)); Lipase 13.0 U/L (11-82); Magnesium 2.0 mg/dl (1.7-2.4); Potassium 3.7 mmol/L (3.5-5.1); Sodium 135.0 mmol/L (136-145); Total Protein 7.6 gm/dl (6.0-8.3)
--- NOTE | 2024-10-31 22:03 | Emergency Department Note ---
Impression & Plan CHF (congestive heart failure), Chronic hypoxic respiratory failure, on home oxygen therapy, Tracheostomy dependent ED Provider Note NAME: BHAVNA CAT AGE: 69 SEX: F : 1955 ARRIVES VIA: Ambulance INFORMANT: Patient ED PROVIDER(S): Nic Briggs MD CHIEF COMPLAINT: Shortness of breath PLAN: Disposition: Admit MEDICAL DECISION MAKING: The patient is a pleasant 69-year-old woman with past medical history of chronic hypoxic respiratory failure on home oxygen, history of COPD, CHF, status post tracheostomy who presents to the emergency department via EMS accompanied by her daughter and caregiver for evaluation of worsening shortness of breath and increased oxygen requirement at home in the setting of the report of making changes to her diuretic where she was changed to Bumex every other day. The patient and her daughter report lower extremity swelling. Patient does not weigh herself daily to track her fluid retention. They deny any fevers. Denies any change in her chronic mucus production. On evaluation the patient is no distress, afebrile with heart rate in the 100s and blood pressure 150s/60s and vital signs otherwise stable. She is on 5 L trach collar. She has diminished breath sounds of bilateral lower lung nugent with normal respiratory effort. EKG without overt acute ischemia. CXR with stable interstitial thickening. WBC and platelets within normal limits. H/H approximately to prior values. Chemistry without metabolic acidosis. LFTs unremarkable. High-sensitivity troponin 21.6, nonspecific in setting of known CHF. BNP 624, elevated but decreased from prior values. Lipase not elevated. Procalcitonin is not elevated. UA with WBCs no bacteria or nitrites. Treatment issue with IV Bumex. Patient and daughter agree with plan for admission for further management. Case was discussed with Dr. Zaidi, [facility] hospitalist, who will evaluate the patient for admission. Further management per admitting team. Triage Nursing notes reviewed and agree them. Prior/external medical records reviewed Vital Signs: reviewed Differential diagnosis: Reactive airway disease, pneumonia, pneumothorax, COPD, CHF, infections, cardiac ischemia, pulmonary embolism, musculoskeletal, gastrointestinal, as well as other pathologies. ER treatment provided: See below. Diagnostics interpreted by me: ECG: Normal sinus rhythm, 98 bpm, no ectopy, no overt ST elevation or depression, QTc 451, QRS 78. Cardiac Monitoring: An order for continuous cardiac monitoring was placed and demonstrated Normal sinus rhythm, 98 bpm, no ectopy. Laboratory studies: See below Imaging studies: See below Consultation(s): Case was discussed with Dr. Zaidi, [facility] hospitalist, who will evaluate the patient for admission. HPI: Per MDM. ROS: See above HPI for pertinent positives & negatives. A total of 10 systems reviewed and were otherwise negative. VITALS:See Below PHYSICAL EXAMINATION: GENERAL: Awake, alert, in no distress HENT: Normocephalic, atraumatic. Oropharynx unremarkable. EYES: Normal conjunctiva. Sclera non-icteric. NECK: Supple. No nuchal rigidity. FROM. No JVD. Tracheostomy present and is c/d/i. RESPIRATORY: Diminished at base bilaterally and otherwise clear to auscultation. CARDIAC: Tachycardic rate, normal rhythm. Extremities warm and well perfused. Pulses equal. ABDOMEN: Soft, non-distended. No tenderness to palpation. No rebound or guarding. No masses. MUSCULOSKELETAL: Chest examination reveals no tenderness. The back is symmetrical on inspection without obvious abnormality. There is no CVA tenderness to palpation. No joint edema. LOWER EXTREMITIES: Calves are equal size bilaterally and non-tender. No edema. No discoloration. NEURO: Normal sensorium. No sensory or motor deficits noted. SKIN: No rash or jaundice noted. Nic Briggs MD Past Med/Surg History Problem List Acute on chronic heart failure with preserved ejection fraction Labile hypertension Sinus tachycardia Heart failure, diastolic, with acute decompensation ASCVD (arteriosclerotic cardiovascular disease) CHF (congestive heart failure) (Acute) Acute on chronic respiratory failure with hypoxia CHF exacerbation Chest pain, rule out acute myocardial infarction CAD (coronary artery disease) (Chronic) 2008 - LAD stent 2016 - LITTLE to mid LAD Hypertension (Chronic) Chronic hypoxic respiratory failure, on home oxygen therapy (Chronic) Hypothyroidism (Chronic) Acute UTI (Acute) CAD (coronary artery disease) (Chronic) Peripheral arterial disease (Chronic) Subclavian artery stenosis, right (Chronic) Tracheostomy dependent (Chronic) Carotid stenosis (Chronic) Hyponatremia (Chronic) Medical History 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 MONTENEGRO 2016 - ABN STRESS TEST - [facility] - NO STENTS/ANGIOPLASTY History of tonsillectomy and adenoidectomy Family History Daughter Family history of reaction to anesthesia SLOW TO WAKE Father Family hx of colon cancer Other Colon cancer No pertinent family history Social History Smoking Status: Former smoker Tobacco Type: Cigarettes Cigarettes Per Day: 1-2; Second Hand Exposure: No; Do You Dip or Chew Tobacco: No; Hx Alcohol Use: No Hx Substance Use: No Preferred Language: [place] Communication Ability: Effective Incinerator Attendant Required: No Beliefs That Will Affect Care: None marital status: Current Living Situation: Alone Current Living Situation Comment: daughte visits daily current occupational status: retired Feels Safe at Home: Yes Safety Concerns: Feels Safe At This Time Assistive Devices: Nebulizer and Oxygen - at Night Allergies Allergies Allergy/AdvReac Type Severity Reaction Status Date / Time bee venom protein (honey bee) Allergy Severe Anaphylaxis Verified 10/19/24 22:43 latex Allergy Intermediate Rash Verified 10/19/24 22:43 oxycodone [From Percocet] Allergy Intermediate PER Verified 10/19/24 22:43 GMG--GETS LOOPY. Home Meds Home Medications Medication Instructions Recorded Confirmed soft lens rinse,store solution 03/01/19 10/20/24 (Saline Sensitive Eyes drops) buspirone 5 mg tablet 5 mg PO BID PRN Anxiety 10/31/19 10/19/24 venlafaxine 75 mg tablet 75 mg PO BID 10/31/19 10/19/24 aspirin 81 mg tablet,delayed 81 mg PO QAM 01/23/21 10/19/24 release fluticasone propionate 50 2 spray intranasal DAILY PRN 01/23/21 10/19/24 mcg/actuation nasal Congestion spray,suspension carbamide peroxide 6.5 % ear drops 5 drp otic (ear) DAILY PRN 03/24/21 10/19/24 (Debrox) NEEDED sodium chloride 0.65 % nasal spray 2 spray NA DIRECTED PRN 03/24/21 10/19/24 aerosol (Saline Mist) Congestion budesonide 160 mcg-glycopyr 9 2 inh inhalation AMHS 12/17/22 10/19/24 mcg-formot 4.8 mcg/actuation HFA inhaler (Breztri Aerosphere) metoprolol succinate 50 mg 50 mg PO HS 02/18/23 10/19/24 tablet,extended release 24 hr levothyroxine 75 mcg tablet 75 mcg PO DAILYBB 07/12/24 10/19/24 acetaminophen 160 mg/5 mL (5 mL) 650 mg PO Q6H PRN pain/fever 10/13/24 10/19/24 oral solution baclofen 10 mg tablet 10 mg PO BID 10/13/24 10/19/24 cyanocobalamin (vitamin B-12) 500 500 mcg PO DAILY 10/13/24 10/19/24 mcg tablet (Vitamin B-12) fexofenadine 180 mg tablet 180 mg PO DAILY PRN Allergy 10/13/24 10/19/24 Symptoms fluocinolone 0.01 % topical body 1 applic topical DAILY PRN ITCHY 10/13/24 10/19/24 oil EARS lidocaine 4 % topical patch 1 patch topical DAILY PRN Pain 10/13/24 10/19/24 metoprolol succinate 50 mg 75 mg PO QAM 10/13/24 10/19/24 tablet,extended release 24 hr Previous Rx's Medication Instructions Recorded atorvastatin 40 mg tablet 40 mg PO QAM #30 tabs 07/14/24 clopidogrel 75 mg tablet 75 mg PO QAM #30 tabs 07/14/24 isosorbide mononitrate 30 mg 30 mg PO QAM #30 tabs 10/16/24 tablet,extended release 24 hr albuterol sulfate 90 mcg/actuation 2 puff inhalation Q2H PRN 10/22/24 aerosol inhaler Shortness Of Breath #0 grams bumetanide 1 mg tablet 1 mg PO Q OTHER DAY 30 days #15 10/22/24 tabs ipratropium 0.5 mg-albuterol 3 mg 3 ml NEB Q2H PRN shortness of 10/22/24 (2.5 mg base)/3 mL nebulization breath or wheezing #180 mL soln sodium chloride 3 % for 3 ml inhalation Q6H PRN thickened 10/22/24 nebulization secretions 30 days #120 mL Results & Data (ED) Vital Signs Vital Signs - 24 hr 10/31/24 21:10 10/31/24 21:10 10/31/24 21:10 Temperature 36.7 C Temperature Source Oral Pulse Rate 103 H Pulse Rate [Finger] Pulse Rate from SpO2 Sensor Respiratory Rate 24 Respiratory Effort / Characteristics Non-Labored Spontaneous Non-Labored Spontaneous Respiratory Depth Normal Normal Respiratory Pattern Regular Regular Blood Pressure 154/65 H Blood Pressure Mean 94 Pulse Oximetry 84 L 84 L Oxygen Delivery Method Room Air Room Air Oxygen Flow Rate Fraction of Inspired Oxygen SaO2/FiO2 Ratio Sepsis Recent Fever Within 48 Hours No Sepsis New/Unexplained Change in Mental Status N/A Sepsis Action Taken by Nursing No Action Required Oxygen Flow Rate - Titration 5 Fraction of Inspired Oxygen - Titration 35 Pulse Oximetry Post Tiitration 95 10/31/24 21:24 10/31/24 21:44 10/31/24 21:56 Temperature Temperature Source Pulse Rate 97 H Pulse Rate [Finger] 107 H Pulse Rate from SpO2 Sensor Respiratory Rate Respiratory Effort / Characteristics Non-Labored Spontaneous Respiratory Depth Respiratory Pattern Blood Pressure Blood Pressure Mean Pulse Oximetry 94 96 Oxygen Delivery Method Trach Collar Trach Collar Oxygen Flow Rate 5 5 Fraction of Inspired Oxygen 35 35 SaO2/FiO2 Ratio 268 Sepsis Recent Fever Within 48 Hours Sepsis New/Unexplained Change in Mental Status Sepsis Action Taken by Nursing Oxygen Flow Rate - Titration Fraction of Inspired Oxygen - Titration Pulse Oximetry Post Tiitration 10/31/24 22:30 10/31/24 23:00 Temperature Temperature Source Pulse Rate 98 H 102 H Pulse Rate [Finger] Pulse Rate from SpO2 Sensor 101 H Respiratory Rate 21 26 H Respiratory Effort / Characteristics Respiratory Depth Respiratory Pattern Blood Pressure 159/71 H 177/78 H Blood Pressure Mean 100 111 Pulse Oximetry 98 95 Oxygen Delivery Method Trach Collar Trach Collar Oxygen Flow Rate 5 5 Fraction of Inspired Oxygen 35 35 SaO2/FiO2 Ratio Sepsis Recent Fever Within 48 Hours Sepsis New/Unexplained Change in Mental Status Sepsis Action Taken by Nursing Oxygen Flow Rate - Titration Fraction of Inspired Oxygen - Titration Pulse Oximetry Post Tiitration Laboratory Data Attestation: I reviewed the patient's lab results. 10/31/24 21:22 11/01/24 10:24 Lab Results 10/31/24 10/31/24 10/31/24 Range/Units 21:22 21:56 23:20 WBC 8.15 (4.8-10.8) K/ul RBC 3.66 L (4.20-5.40) M/uL Hgb 11.3 L (12.0-16.0) g/dl POC Hgb 11.6 L (12.0-16.0) g/dl Hct 33.9 L (37.0-47.0) % POC Hct 34 L (37-47) % MCV 92.6 (80.0-100.0) fL MCH 30.9 (25.0-34.0) pg MCHC 33.3 (32.0-36.0) g/dL RDW Std Deviation 44.5 (36.4-46.3) fL RDW Coeff of Jair 13.1 (11.5-14.5) % Plt Count 317 (130-400) K/uL MPV 9.5 (9.4-12.4) fL Immature Gran % (Auto) 0.5 % Neut % (Auto) 74.6 % Lymph % (Auto) 12.0 % Moffat % (Auto) 9.1 % Eos % (Auto) 2.9 % Baso % (Auto) 0.9 % Neut # (Auto) 6.08 (1.40-6.50) K/uL Lymph # (Auto) 0.98 L (1.20-3.40) K/uL Moffat # (Auto) 0.74 H (0.11-0.59) K/uL Eos # (Auto) 0.24 (0.00-0.50) K/uL Baso # (Auto) 0.07 (0.00-0.20) K/uL Immature Gran # (Auto) 0.04 (0.01-0.20) K/uL PT 11.6 (9.0-12.0) Seconds INR 1.1 (0.9-1.1) POC Sodium 134 L (135-144) mmol/L Sodium 135 L (136-145) mmol/L POC Potassium 3.8 (3.3-5.0) mmol/L Potassium 3.7 (3.5-5.1) mmol/L POC Chloride 100 L (101-112) mmol/L Chloride 96 L (98-107) mmol/L Carbon Dioxide 31 (21-32) mmol/L POC Total CO2 25 (24-31) mmol/L Anion Gap 8 (3-11) POC Anion Gap 14.0 L (16-25) mmol/L POC BUN 17 (7-18) mg/dl BUN 18 (6-23) mg/dl Creatinine 0.66 (0.6-1.2) mg/dl POC Creatinine 0.7 (0.6-1.3) mg/dl Est Cr Clr Drug Dosing 54.9 ml/min eGFR 93.73 BUN/Creatinine Ratio 27.3 H (10-20) Glucose 124 H (70-99(Fasting)) mg/dl POC Glucose (other) 117 H (70-99) mg/dl Calcium 9.6 (8.6-10.3) mg/dl POC Ioniz Calcium Griffin 1.00 L (1.12-1.32) mmol/l Phosphorus 2.7 (2.5-4.9) mg/dl Magnesium 2.0 (1.7-2.4) mg/dl Total Bilirubin 0.5 (0.2-1.0) mg/dl AST 26 (13-39) U/L ALT 15 (7-52) U/L Alkaline Phosphatase 78 (34-104) U/L Troponin I High Sens 21.6 H 20.2 H (0-14) pg/ml B-Natriuretic Peptide 624 H (0-100) pg/ml Total Protein 7.6 (6.0-8.3) gm/dl Albumin 3.5 (3.4-5.0) gm/dl Globulin 4.1 H (2.5-4.0) gm/dl Albumin/Globulin Ratio 0.9 (0.9-2) Lipase 13 (11-82) U/L Procalcitonin 0.02 (0-0.5) ng/ml Administered Medications Acetaminophen (Acetaminophen 325 Mg Tab) 650 mg PO Q4H PRN PRN Reason: Pain or Fever Stop: 12/01/24 00:44 Last Admin: 11/01/24 03:44 Dose: 650 mg Documented By: LORNA Albuterol (Albut/Ipratrop 3mg/0.5mg Neb 3 Ml Vial) 3 ml NEB Q2H PRN; Protocol PRN Reason: shortness of breath or wheezing Stop: 12/01/24 00:44 Last Admin: 11/01/24 17:27 Dose: 3 ml Documented By: Admin: 11/01/24 07:13 Dose: 3 ml Documented By: Admin: 11/01/24 04:04 Dose: 3 ml Documented By: SHEREEN Aspirin (Aspirin 81 Mg Ectab) 81 mg PO QAM [facility] Stop: 12/01/24 08:59 Last Admin: 11/01/24 08:17 Dose: 81 mg Documented By: RED Atorvastatin Calcium (Atorvastatin 40 Mg Tab) [facility] Stop: 12/01/24 08:59 Last Admin: 11/01/24 08:17 Dose: 40 mg Documented By: RED Baclofen (Baclofen 10 Mg Tab) 10 mg PO BID [facility] Stop: 12/01/24 08:59 Last Admin: 11/01/24 08:17 Dose: 10 mg Documented By: RED Buspirone HCl (Buspirone 5 Mg Tab) 5 mg PO BID PRN PRN Reason: Anxiety Stop: 12/01/24 00:44 Last Admin: 11/01/24 01:33 Dose: 5 mg Documented By: LORNA Clopidogrel Bisulfate (Clopidogrel Bisulfate 75 Mg Tab) 75 mg PO QAM [facility] Stop: 12/01/24 08:59 Last Admin: 11/01/24 08:17 Dose: 75 mg Documented By: RED Cyanocobalamin (Cyanocobalamin (B-12) 500 Mcg Tablet) 500 mcg PO DAILY [facility] Stop: 12/01/24 08:59 Last Admin: 11/01/24 08:17 Dose: 500 mcg Documented By: RED Enoxaparin Sodium (Enoxaparin Inj 40 Mg/0.4 Ml Syr) 40 mg SQ Q24H [facility] Stop: 12/01/24 08:59 Last Admin: 11/01/24 08:18 Dose: 40 mg Documented By: RED Fluticasone Furoate (Fluticasone Furoate 200mcg 14 Puffs/Inhaler) 1 puffs INH DAILY [facility] Stop: 12/01/24 08:59 Last Admin: 11/01/24 08:18 Dose: 1 puffs Documented By: RED Isosorbide Mononitrate (Isosorbide Moffat Extended Rel 30 Mg Tabcr) 30 mg PO QAM [facility] Stop: 12/01/24 08:59 Last Admin: 11/01/24 08:17 Dose: 30 mg Documented By: RED Levothyroxine Sodium (Levothyroxine Sodium 75 Mcg Tablet) 75 mcg PO DAILYBB [facility] Stop: 12/01/24 06:29 Last Admin: 11/01/24 06:42 Dose: 75 mcg Documented By: LORNA Miscellaneous (Sodium Chloride 3% Neb: Order Awaiting Action) 1 each N/A QS [facility] Stop: 12/01/24 07:59 Last Admin: 11/01/24 16:08 Dose: Not Given Documented By: Admin: 11/01/24 08:16 Dose: Not Given Documented By: RED Umeclidinium/Vilanterol (Umeclidinium/Vilanterol 62.5/25mcg 7 Puffs/Inhaler) 1 puffs INH DAILY [facility] Stop: 12/01/24 08:59 Last Admin: 11/01/24 08:18 Dose: 1 puffs Documented By: RED Venlafaxine HCl (Venlafaxine Hcl 37.5 Mg Tab) 75 mg PO BIDM [facility] Stop: 12/01/24 00:44 Last Admin: 11/01/24 16:08 Dose: 75 mg Documented By: Admin: 11/01/24 08:17 Dose: 75 mg Documented By: Admin: 11/01/24 01:48 Dose: 75 mg Documented By: LORNA Discontinued Medications Bumetanide 1 mg/ Syringe 4 mls @ 4 mls/min IV ONE ONE Stop: 10/31/24 22:42 Last Admin: 11/01/24 01:05 Dose: 4 mls/min Documented By: LORNA Potassium Chloride (K Ayo / Wtr) 10 meq in 100 mls @ 100 mls/hr IV ONE ONE Stop: 11/01/24 00:42 Last Infusion: 11/01/24 03:00 Dose: Infused Documented By: Admin: 11/01/24 00:29 Dose: 100 mls/hr Documented By: DAQUAN Bumetanide 1 mg/ Syringe 4 mls @ 4 mls/min IV BID@0900,1700 JUANY Stop: 11/01/24 09:01 Last Admin: 11/01/24 08:28 Dose: 4 mls/min Documented By: RED Bumetanide 1 mg/ Syringe 4 mls @ 4 mls/min IV BID@0900,1300 JUANY Stop: 12/01/24 12:59 Last Admin: 11/01/24 13:06 Dose: 4 mls/min Documented By: RED Metoprolol Succinate (Metoprolol Succ 50mg Ext Rel Tab) 50 mg PO NOW STA Stop: 10/31/24 23:42 Last Admin: 11/01/24 00:28 Dose: 50 mg Documented By: DAQUAN Metoprolol Succinate (Metoprolol Succ 25mg Ext Rel Tab) 75 mg PO QAM [facility] Stop: 12/01/24 08:59 Last Admin: 11/01/24 08:17 Dose: 75 mg Documented By: RED Imaging Data Radiologist's Impression: Chest X-Ray 10/31/24 21:24 Exam(s): XR CXR 1 VIEW EXAM: XR Chest, 1 View CLINICAL HISTORY: Reason for exam: Chest pain, nonspecific. TECHNIQUE: Frontal view of the chest. COMPARISON: 10/19/2024 FINDINGS: Lungs: Prominent interstitial markings throughout both lungs, unchanged. No acute focal infiltrate or consolidation is seen. Pleural space: Unremarkable. No pneumothorax. Heart: There is a left coronary stent in place, unchanged. The heart is borderline enlarged. Mediastinum: Unremarkable. Normal mediastinal contour. Bones/joints: There are at least 2 old healed right-sided rib fractures. No acute fracture is seen. Vasculature: The aortic arch is moderately calcified, unchanged. Tubes, lines and devices: There is a tracheostomy in standard position. Upper abdomen: Unremarkable as visualized. No pneumoperitoneum under the diaphragm. IMPRESSION: 1. There is a tracheostomy in standard position. 2. Prominent interstitial markings throughout both lungs, unchanged. No acute focal infiltrate or consolidation is seen. Electronically signed by: Jose Angel Anaya MD 10/31/24 22:25 PM Discharge Plan Visit Data Chief Complaint: Shortness of Breath/Dyspnea Stated Complaint: SOB, Edema ED Provider: Nic Briggs Discharge Problem: CHF (congestive heart failure), Chronic hypoxic respiratory failure, on home oxygen therapy, Tracheostomy dependent Patient Disposition: Admitted As Inpatient Condition: Fair Discharge Instructions Interventions: ED Discharge Assessment Last Done: 11/01/24 00:21 Discharge Problem: CHF (congestive heart failure) Qualifiers: Heart failure type: unspecified Heart failure chronicity: acute on chronic Q ualified Code(s): I50.9 - Heart failure, unspecified
[2024-10-31 22:05] LABS: INR 1.1 (0.9-1.1); Prothrombin Time 11.6 Seconds (9.0-12.0)
--- NOTE | 2024-10-31 22:25 | XRay Report ---
Exam(s): XR CXR 1 VIEW EXAM: XR Chest, 1 View CLINICAL HISTORY: Reason for exam: Chest pain, nonspecific. TECHNIQUE: Frontal view of the chest. COMPARISON: 10/19/2024 FINDINGS: Lungs: Prominent interstitial markings throughout both lungs, unchanged. No acute focal infiltrate or consolidation is seen. Pleural space: Unremarkable. No pneumothorax. Heart: There is a left coronary stent in place, unchanged. The heart is borderline enlarged. Mediastinum: Unremarkable. Normal mediastinal contour. Bones/joints: There are at least 2 old healed right-sided rib fractures. No acute fracture is seen. Vasculature: The aortic arch is moderately calcified, unchanged. Tubes, lines and devices: There is a tracheostomy in standard position. Upper abdomen: Unremarkable as visualized. No pneumoperitoneum under the diaphragm. IMPRESSION: 1. There is a tracheostomy in standard position. 2. Prominent interstitial markings throughout both lungs, unchanged. No acute focal infiltrate or consolidation is seen. Electronically signed by: Jose Angel Anaya MD 10/31/24 22:25 PM
--- NOTE | 2024-10-31 23:44 | History & Physical Report ---
Date of Service October 31, 2024 Assessment & Plan (1) CHF exacerbation: (2) Acute on chronic respiratory failure with hypoxia: (3) Chronic hypoxic respiratory failure, on home oxygen therapy: (4) Elevated troponin: Plan The patient is a 69-year-old female with past medical history including CAD, hypertension, chronic hypoxic respiratory failure, hypothyroidism, urinary tract infection, PAD, right subclavian artery stenosis, tracheostomy dependent, and carotid stenosis. The patient presents to the emergency department with her daughter, due to complaints of worsening shortness of breath, increased oxygen requirement at home over the past few days. The patient had told her daughter that she was becoming more short of breath, with dyspnea exertion, and noted that her ankles and feet were swelling compared to her baseline. She has oxygen as needed at home, however, can frequently do without. She has however over the past few days required oxygen 2 L, to improve oxygenation and comfort of breathing. She has a tracheostomy, and gets oxygen via trach collar. Most [facility] hospitalizations were from 10/13-10/16/2024, and 10/19-10/23/2024. Workup in the emergency department included chest x-ray suggestive of CHF, troponin of 21.6, and BNP 624. Patient was given bumetanide 1 mg IV, and referred for evaluation for admission. Most recent echocardiogram was on 10/21/2024, with ejection fraction 65-70%. CHF exacerbation/acute on chronic respiratory failure with hypoxia/chronic respiratory failure on home oxygen therapy- The patient will be admitted to telemetry for serial cardiac enzymes, serial EKG's, cardiac rhythm monitoring Initial troponin mildly elevated at 21.6, with follow-up 20.2. At last hospitalization on 10/20/2024, peak troponin was 71.8 BNP elevated at 624 Echocardiogram on 10/21/2024 revealed ejection fraction of 65-70% Patient was given bumetanide 1 mg IV in ED, and will continue 1 mg IV twice daily starting in the a.m. Follow serial CBC with differential, renal function panel, magnesium and troponins Give 1K rider 10 mEq IV x 1, as patient is unable to tolerate oral potassium Continue aspirin, clopidogrel, isosorbide mononitrate, and metoprolol succinate 75 mg every morning and 50 mg at bedtime. Tracheostomy dependence/history of laryngeal cancer, chronic respiratory failure- Continue albuterol sulfate HFA, Breztri, and DuoNebs every 2 hours as needed Continue sodium chloride 3 mL inhalation every 6 hours as needed thickened secretions Hyperlipidemia- Continue atorvastatin Hypothyroidism- Continue levothyroxine Mood disorder- Continue venlafaxine, and buspirone twice daily as needed Muscle spasm- Continue baclofen History of Present Illness Chief Complaint: The patient presents to the emergency department with her daughter, due to complaints of worsening shortness of breath, increased oxygen requirement at home over the past few days. The patient told her daughter that she had noted her lower extremities were beginning to swell bilaterally, and that she was becoming progressively more short of breath with dyspnea on exertion. She has oxygen as needed at home, however, can frequently do without. She has however over the past few days required oxygen 2 L, to improve oxygenation and comfort of breathing. She has a tracheostomy, and gets oxygen via trach collar. Most recent hospitalizations were from 10/13-10/16/2024, and 10/19-10/23/2024., Primary Care Provider: Paola Wilson MD The patient is a 69-year-old female with past medical history including CAD, hypertension, chronic hypoxic respiratory failure, hypothyroidism, urinary tract infection, PAD, right subclavian artery stenosis, tracheostomy dependent, and carotid stenosis. The patient presents to the emergency department with her daughter, due to complaints of worsening shortness of breath, increased oxygen requirement at home over the past few days. She has oxygen as needed at home, however, can frequently do without. She has however over the past few days required oxygen 2 L, to improve oxygenation and comfort of breathing. She has a tracheostomy, and gets oxygen via trach collar. Most recent hospitalizations were from 10/13-10/16/2024, and 10/19-10/23/2024. Workup in the emergency department included chest x-ray suggestive of CHF, troponin of 21.6, and BNP 624. Patient was given bumetanide 1 mg IV, and referred for evaluation for admission. Most recent echocardiogram was on 10/21/2024, with ejection fraction 65-70%. Allergies Allergy/AdvReac Type Severity Reaction Status Date / Time bee venom protein (honey bee) Allergy Severe Anaphylaxis Verified 10/19/24 22:43 latex Allergy Intermediate Rash Verified 10/19/24 22:43 oxycodone [From Percocet] Allergy Intermediate PER Verified 10/19/24 22:43 GMG--GETS LOOPY. Home Medications Medication Instructions Recorded Confirmed Type soft lens rinse,store solution 03/01/19 10/20/24 History (Saline Sensitive Eyes drops) buspirone 5 mg tablet 5 mg PO BID PRN Anxiety 10/31/19 10/19/24 History venlafaxine 75 mg tablet 75 mg PO BID 10/31/19 10/19/24 History aspirin 81 mg tablet,delayed 81 mg PO QAM 01/23/21 10/19/24 History release fluticasone propionate 50 2 spray intranasal DAILY PRN 01/23/21 10/19/24 History mcg/actuation nasal Congestion spray,suspension carbamide peroxide 6.5 % ear drops 5 drp otic (ear) DAILY PRN 03/24/21 10/19/24 History (Debrox) NEEDED sodium chloride 0.65 % nasal spray 2 spray NA DIRECTED PRN 03/24/21 10/19/24 History aerosol (Saline Mist) Congestion budesonide 160 mcg-glycopyr 9 2 inh inhalation AMHS 12/17/22 10/19/24 History mcg-formot 4.8 mcg/actuation HFA inhaler (Breztri Aerosphere) metoprolol succinate 50 mg 50 mg PO HS 02/18/23 10/19/24 History tablet,extended release 24 hr levothyroxine 75 mcg tablet 75 mcg PO DAILYBB 07/12/24 10/19/24 History atorvastatin 40 mg tablet 40 mg PO QAM #30 tabs 07/14/24 10/19/24 Rx clopidogrel 75 mg tablet 75 mg PO QAM #30 tabs 07/14/24 10/19/24 Rx acetaminophen 160 mg/5 mL (5 mL) 650 mg PO Q6H PRN pain/fever 10/13/24 10/19/24 History oral solution baclofen 10 mg tablet 10 mg PO BID 10/13/24 10/19/24 History cyanocobalamin (vitamin B-12) 500 500 mcg PO DAILY 10/13/24 10/19/24 History mcg tablet (Vitamin B-12) fexofenadine 180 mg tablet 180 mg PO DAILY PRN Allergy 10/13/24 10/19/24 History Symptoms fluocinolone 0.01 % topical body 1 applic topical DAILY PRN ITCHY 10/13/24 10/19/24 History oil EARS lidocaine 4 % topical patch 1 patch topical DAILY PRN Pain 10/13/24 10/19/24 History metoprolol succinate 50 mg 75 mg PO QAM 10/13/24 10/19/24 History tablet,extended release 24 hr isosorbide mononitrate 30 mg 30 mg PO QAM #30 tabs 10/16/24 10/19/24 Rx tablet,extended release 24 hr albuterol sulfate 90 mcg/actuation 2 puff inhalation Q2H PRN 10/22/24 10/19/24 Rx aerosol inhaler Shortness Of Breath #0 grams bumetanide 1 mg tablet 1 mg PO Q OTHER DAY 30 days #15 10/22/24 Rx tabs ipratropium 0.5 mg-albuterol 3 mg 3 ml NEB Q2H PRN shortness of 10/22/24 10/19/24 Rx (2.5 mg base)/3 mL nebulization breath or wheezing #180 mL soln sodium chloride 3 % for 3 ml inhalation Q6H PRN thickened 10/22/24 Rx nebulization secretions 30 days #120 mL Past Med/Surg History Problem List (Updated 11/01/24 @ 01:37 by Maurisio Zaidi MD) Acute on chronic respiratory failure with hypoxia CHF exacerbation Chest pain, rule out acute myocardial infarction CAD (coronary artery disease) (Chronic) 2007 - LAD stent 2015 - LITTLE to mid LAD Hypertension (Chronic) Chronic hypoxic respiratory failure, on home oxygen therapy (Chronic) Hypothyroidism (Chronic) Acute UTI (Acute) CAD (coronary artery disease) (Chronic) Peripheral arterial disease (Chronic) Subclavian artery stenosis, right (Chronic) Tracheostomy dependent (Chronic) Carotid stenosis (Chronic) Hyponatremia (Chronic) Medical History (Updated 11/01/24 @ 01:37 by Maurisio Zaidi MD) 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 MONTENEGRO 2016 - ABN STRESS TEST - [facility] - NO STENTS/ANGIOPLASTY History of tonsillectomy and adenoidectomy Family History Daughter Family history of reaction to anesthesia SLOW TO WAKE Father Family hx of colon cancer Other Colon cancer No pertinent family history Social History Smoking Status: Former smoker Tobacco Type: Cigarettes Cigarettes Per Day: 1-2; Second Hand Exposure: No; Do You Dip or Chew Tobacco: No; Hx Alcohol Use: No Hx Substance Use: No Preferred Language: Estonian Communication Ability: Effective Weekend Caregiver Required: No Beliefs That Will Affect Care: None marital status: Current Living Situation: Alone Current Living Situation Comment: ivettee visits daily current occupational status: retired Feels Safe at Home: Yes Assistive Devices: Other Review of Systems Review of Systems: The patient denies chest pain, palpitations, sore throat, fevers, chills, sweats, nausea, vomiting, diarrhea , constipation, abdominal pain, pelvic pain, blood in urine or stool, dysuria, urinary frequency or urgency, lightheadedness, dizziness, headache, memory loss, loss of consciousness, rash, abnormal bruising or bleeding, imbalance, focal or generalized weakness, numbness or tingling in arms or legs, generalized arthralgias or myalgias, back or neck pain, or night sweats. The review of systems is otherwise negative other than for that already noted above, and at least 10 systems have been reviewed. Physical Exam Physical Exam: The patient is awake, alert and oriented 3, well developed and well nourished, normocephalic and atraumatic, lying in bed and in no acute distress. HEENT--PERRL, EOMI, mucous membranes and oropharynx dry. Neck--supple. No JVD. No bruits. Thyroid normal, trachea midline, no adenopathy. Heart--normal S1 and S2. No murmurs, rubs or gallops. Lungs--crackles at the bases bilaterally. No respiratory distress, no accessory muscle use. Abdomen--normal bowel sounds and soft. Nontender. Nondistended, no hernias or masses, no organomegaly. Extremities--no cyanosis or clubbing. No edema. There are good distal pulses b/l. Dermatologic--normal skin turgor, normal color, no abnormal lymph nodes, no rash. Neurologic--cranial nerves II through XII grossly intact. Rheumatologic--normal range of motion. Psychiatric--normal affect. Results & Data Results & Data Vital Signs (Past 12 Hours) Vital Signs Temp Pulse Pulse Resp BP Pulse Ox O2 Del Method 10/31/24 23:00 102 H 26 H 177/78 H 95 Trach Collar 10/31/24 22:30 98 H 21 159/71 H 98 Trach Collar 10/31/24 21:56 107 H 96 Trach Collar 10/31/24 21:44 97 H 10/31/24 21:24 94 Trach Collar 10/31/24 21:10 84 L Room Air 10/31/24 21:10 36.7 C 103 H 24 154/65 H 84 L Room Air O2 Flow Rate FiO2 10/31/24 23:00 5 35 10/31/24 22:30 5 35 10/31/24 21:56 5 35 10/31/24 21:44 10/31/24 21:24 5 35 10/31/24 21:10 10/31/24 21:10 Laboratory Results Laboratory Results WBC 8.15 K/ul (4.8-10.8) 10/31/24 21:22 RBC 3.66 M/uL (4.20-5.40) L 10/31/24 21:22 Hgb 11.3 g/dl (12.0-16.0) L 10/31/24 21:22 POC Hgb 11.6 g/dl (12.0-16.0) L 10/31/24 21:56 Hct 33.9 % (37.0-47.0) L 10/31/24 21:22 POC Hct 34 % (37-47) L 10/31/24 21:56 MCV 92.6 fL (80.0-100.0) 10/31/24 21:22 MCH 30.9 pg (25.0-34.0) 10/31/24 21:22 MCHC 33.3 g/dL (32.0-36.0) 10/31/24 21:22 RDW Std Deviation 44.5 fL (36.4-46.3) 10/31/24 21: RDW Coeff of Jair 13.1 % (11.5-14.5) 10/31/24 21: Plt Count 317 K/uL (130-400) 10/31/24 21:22 MPV 9.5 fL (9.4-12.4) 10/31/24 21: Immature Gran % (Auto) 0.5 % 10/31/24: Neut % (Auto) 74.6 % 10/31/24 21: Lymph % (Auto) 12.0 % 10/31/24: Day % (Auto) 9.1 % 10/31/24 21: Eos % (Auto) 2.9 % 10/31/24 21: Baso % (Auto) 0.9 % 10/31/24: Neut # (Auto) 6.08 K/uL (1.40-6.50) 10/31/24: Lymph # (Auto) 0.98 K/uL (1.20-3.40) L 10/31/24 21:22 Day # (Auto) 0.74 K/uL (0.11-0.59) H 10/31/24: Eos # (Auto) 0.24 K/uL (0.00-0.50) 10/31/24: Baso # (Auto) 0.07 K/uL (0.00-0.20) 10/31/24: Immature Gran # (Auto) 0.04 K/uL (0.01-0.20) 10/31/24 21: PT 11.6 Seconds (9.0-12.0) 10/31/24 21: INR 1.1 (0.9-1.1) 10/31/24: POC Sodium 134 mmol/L (135-144) L 10/31/24 21: Sodium 135 mmol/L (136-145) L 10/31/24 21:22 POC Potassium 3.8 mmol/L (3.3-5.0) 10/31/24 21:56 Potassium 3.7 mmol/L (3.5-5.1) 08/26/25 21:22 POC Chloride 100 mmol/L (101-112) L 10/31/24 21:56 Chloride 96 mmol/L (98-107) L 10/31/24 21:22 Carbon Dioxide 31 mmol/L (21-32) 10/31/24 21:22 POC Total CO2 25 mmol/L (24-31) 10/31/24 21:56 Anion Gap 8 (3-11) 10/31/24 21:22 POC Anion Gap 14.0 mmol/L (16-25) L 10/31/24 21:56 POC BUN 17 mg/dl (7-18) 10/31/24 21:56 BUN 18 mg/dl (6-23) 10/31/24 21:22 Creatinine 0.66 mg/dl (0.6-1.2) 10/31/24 21:22 POC Creatinine 0.7 mg/dl (0.6-1.3) 10/31/24 21:56 Est Cr Clr Drug Dosing 54.9 ml/min 10/31/24 21:22 eGFR 93.73 10/31/24 21:22 BUN/Creatinine Ratio 27.3 (10-20) H 10/31/24 21:22 Glucose 124 mg/dl (70-99(Fasting)) H 10/31/24 21:22 POC Glucose (other) 117 mg/dl (70-99) H 10/31/24 21:56 Calcium 9.6 mg/dl (8.6-10.3) 10/31/24 21:22 POC Ioniz Calcium Griffin 1.00 mmol/l (1.12-1.32) L 10/31/24 21:56 Phosphorus 2.7 mg/dl (2.5-4.9) 10/31/24 21:22 Magnesium 2.0 mg/dl (1.7-2.4) 10/31/24 21:22 Total Bilirubin 0.5 mg/dl (0.2-1.0) 10/31/24 21:22 AST 26 U/L (13-39) 10/31/24 21:22 ALT 15 U/L (7-52) 10/31/24 21:22 Alkaline Phosphatase 78 U/L (34-104) 10/31/24 21:22 Troponin I High Sens 20.2 pg/ml (0-14) H 10/31/24 23:20 B-Natriuretic Peptide 624 pg/ml (0-100) H 10/31/24 21:22 Total Protein 7.6 gm/dl (6.0-8.3) 10/31/24 21:22 Albumin 3.5 gm/dl (3.4-5.0) 10/31/24 21:22 Globulin 4.1 gm/dl (2.5-4.0) H 10/31/24 21:22 Albumin/Globulin Ratio 0.9 (0.9-2) 10/31/24 21:22 Lipase 13 U/L (11-82) 10/31/24 21:22 Procalcitonin 0.02 ng/ml (0-0.5) 10/31/24 21:22 Urine Comment 11/01/24 01:15 Impressions Chest X-Ray 10/31/24 21:24 Exam(s): XR CXR 1 VIEW EXAM: XR Chest, 1 View CLINICAL HISTORY: Reason for exam: Chest pain, nonspecific. TECHNIQUE: Frontal view of the chest. COMPARISON: 10/19/2024 FINDINGS: Lungs: Prominent interstitial markings throughout both lungs, unchanged. No acute focal infiltrate or consolidation is seen. Pleural space: Unremarkable. No pneumothorax. Heart: There is a left coronary stent in place, unchanged. The heart is borderline enlarged. Mediastinum: Unremarkable. Normal mediastinal contour. Bones/joints: There are at least 2 old healed right-sided rib fractures. No acute fracture is seen. Vasculature: The aortic arch is moderately calcified, unchanged. Tubes, lines and devices: There is a tracheostomy in standard position. Upper abdomen: Unremarkable as visualized. No pneumoperitoneum under the diaphragm. IMPRESSION: 1. There is a tracheostomy in standard position. 2. Prominent interstitial markings throughout both lungs, unchanged. No acute focal infiltrate or consolidation is seen. Electronically signed by: Jose Angel Anaya MD 10/31/24 22:25 PM Code Status & VTE Plan Code Status Full code VTE Prophylaxis Plan VTE Prophylaxis will be ordered: Yes PG Care Time/CCT Total # of Minutes Spent Total Time Spent with Patient: Total time spent is greater than 50% in coordination of care (as documented) at patient's floor/unit and/or counseling patient: Coding Level of Care Code 33036 INT INP/OBS CARE 3/75MIN Diagnoses CHF exacerbation I50.9 Acute on chronic respiratory failure with hypoxia J96.21 Chronic hypoxic respiratory failure, on home oxygen therapy J96.11; Z99.81 Elevated troponin R77.8
[2024-11-01] MEDS: METOPROLOL SUCC 50MG EXT REL TAB PO STA (00:28)
[2024-11-01] MEDS: POTASSIUM CHLORIDE / WTR 10 MEQ/100 ML PLCT IV ONE (00:29)
[2024-11-01] MEDS ORDERED: ONDANSETRON INJ 2 MG/ML 2 ML VIAL IV PRN (00:45)
[2024-11-01] MEDS ORDERED: ACETAMINOPHEN 160 MG/5 ML PO PRN (00:45)
[2024-11-01] MEDS ORDERED: ALBUTEROL HFA 8 GM INHALER INH PRN (00:45)
[2024-11-01] MEDS ORDERED: SODIUM CHLORIDE 0.65% NA SOLN 45 ML (OCEAN) PRN (00:45)
[2024-11-01] MEDS: BUMETANIDE 1 MG in SYRINGE 0 ML IV ONE (01:05)
[2024-11-01] MEDS: busPIRone 5 MG TAB PO PRN (01:33)
[2024-11-01 01:35] LABS: Appearance Urine Clear (Clear); Bacteria Urine Automated None Seen (None Seen); Cast Urine Automated 0-2 /lpf (0-2); Glucose Urine UA Negative (Negative); RBC Urine Automated 0-2 /hpf (0-2)
[2024-11-01] MEDS: VENLAFAXINE HCL 37.5 MG TAB PO SCH (01:48)
[2024-11-01] MEDS: ACETAMINOPHEN 325 MG TAB PO PRN (03:44)
[2024-11-01] MEDS: ALBUT/IPRATROP 3MG/0.5MG NEB 3 ML VIAL NEB PRN (04:04)
[2024-11-01] MEDS: LEVOTHYROXINE SODIUM 75 MCG TABLET PO SCH (06:42)
--- NOTE | 2024-11-01 07:01 | Hospitalist Progress Note ---
Date of Service November 01, 2024 Assessment & Plan (1) Acute on chronic heart failure with preserved ejection fraction: Plan in summary this is a 69-year-old female who presented with progressive shortness of breath and dyspnea on exertion, found to have an acute on chronic heart failure/Bashan. previously diagnosed; most recent ejection fraction of 65 to 70% obtained 10/2024; consistent with HFpEF; most recent diuretic rate of 1.58 mL/kg/h; suspect that the patient's admission is consequential of inadequate outpatient diuresis based on previous change in loop diuretic frequency from daily to every other day -Nursing to notify of new or increased oxygen requirement, sustained heart rate of greater than 120 or less than 50 bpm - continue low-sodium diet -Measure intake and output every shift - continue bumetanide 1 mg IV twice daily; anticipate transition to oral diuresi s on 11/02 -Follow daily RFP and Magnesium - cardiology consulted by admitting physician DVT PPx: continue Lovenox 40 mg SQ daily Admission and Anticipated Discharge Date Admission Date: October 31, 2024 Subjective Ms. Hardy is a 69-year-old female whose active medical conditions include hypertension, hyperlipidemia, coronary and peripheral arterial disease, chronic obstructive pulmonary disease in the setting of chronic respiratory failure with home oxygen via tracheostomy among other chronic medical conditions who was admitted to [facility] on 11/01 due to acute on chronic heart failure exacerbation. No acute overnight events; patient feels somewhat improved this morning without specific complaints Review of Systems Review of Systems: remaining review of constitutional, pulmonary, cardiovascular, gastrointestinal, genitourinary, musculoskeletal, neurologic, and integumentary systems was unremarkable except for pertinent positive and negative findings noted in the HPI above. Physical Exam Physical Exam: General: Adult female in no acute distress Vital Signs: reviewed; saturating 92 to 95% on 3 L via trach mask HEENT: pupils equally round reactive to light; extraocular motion intact; tacky mucous membranes Neck: tracheostomy site appears well Pulmonary: symmetric chest wall excursion without restrictions; coarse bilateral air movement without diminished movement Cardiovascular: regular rate and rhythm without murmurs, rubs, or gallops; S1 and S2 normal; bilateral radial and posterior tibial pulse 2+ without lower extremity edema Neurologic: CN II-XII grossly intact; no discernible focal weakness nor paresthesias Results & Data Results & Data Vital Signs (Past 12 Hours) Vital Signs Temp Pulse Pulse Resp BP BP Pulse Ox 11/01/24 04:04 101 H 24 92 11/01/24 01:10 11/01/24 01:02 36.8 C 109 H 18 206/76 H 92 11/01/24 00:21 106 H 21 205/94 H 95 11/01/24 00:00 105 H 23 205/94 H 96 10/31/24 23:00 102 H 26 H 177/78 H 95 10/31/24 22:30 98 H 21 159/71 H 98 10/31/24 21:56 107 H 96 10/31/24 21:44 97 H 10/31/24 21:24 94 10/31/24 21:10 84 L 10/31/24 21:10 36.7 C 103 H 24 154/65 H 84 L O2 Del Method O2 Flow Rate FiO2 11/01/24 04:04 Trach Collar 8 35 11/01/24 01:10 Trach Collar 7 11/01/24 01:02 Room Air 11/01/24 00:21 Trach Collar 5 11/01/24 00:00 Trach Collar 5 10/31/24 23:00 Trach Collar 5 35 10/31/24 22:30 Trach Collar 5 35 10/31/24 21:56 Trach Collar 5 35 10/31/24 21:44 10/31/24 21:24 Trach Collar 5 35 10/31/24 21:10 Room Air 10/31/24 21:10 Room Air Laboratory Results reviewed Diagnostic Findings abdominal ultrasound without acute findings no evidence of ascites PG Care Time/CCT Total # of Minutes Spent Total Time Spent with Patient: Total time spent is greater than 50% in coordination of care (as documented) at patient's floor/unit and/or counseling patient: Coding Level of Care Code 83848 SUB INP/OBS CARE 2/35MIN Diagnoses Acute on chronic heart failure with preserved ejection fraction I50.33
[2024-11-01] MEDS: ASPIRIN 81 MG ECTAB PO SCH (08:17)
[2024-11-01] MEDS: CYANOCOBALAMIN (B-12) 500 MCG TABLET PO SCH (08:17)
[2024-11-01] MEDS: CLOPIDOGREL BISULFATE 75 MG TAB PO SCH (08:17)
[2024-11-01] MEDS: ATORVASTATIN 40 MG TAB PO SCH (08:17)
[2024-11-01] MEDS: BACLOFEN 10 MG TAB PO SCH (08:17)
[2024-11-01] MEDS: METOPROLOL SUCC 25MG EXT REL TAB PO SCH ×2 (08:17→20:48)
[2024-11-01] MEDS: ISOSORBIDE MONO EXTENDED REL 30 MG TABCR PO SCH (08:17)
[2024-11-01] MEDS: ENOXAPARIN INJ 40 MG/0.4 ML SYR SQ SCH (08:18)
[2024-11-01] MEDS: FLUTICASONE FUROATE 200MCG 14 PUFFS/INHALER INH SCH (08:18)
[2024-11-01] MEDS: UMECLIDINIUM/VILANTEROL 62.5/25MCG 7 PUFFS/INHALER INH SCH (08:18)
[2024-11-01] MEDS: BUMETANIDE 1 MG in SYRINGE 0 ML IV SCH ×2 (08:28→13:06)
[2024-11-01] MEDS ORDERED: NON-FORMULARY MEDICATION (Budesonide-Glycopyr-Formoterol [Breztri Aerosphere] 160-9-4.8 mc INH SCH (09:00)
--- NOTE | 2024-11-01 09:43 | Cardiology Consultation ---
Date of Consultation November 01, 2024 Assessment & Plan (1) Heart failure, diastolic, with acute decompensation: (2) ASCVD (arteriosclerotic cardiovascular disease): (3) Sinus tachycardia: (4) Labile hypertension: (5) Carotid stenosis: (6) Subclavian artery stenosis, right: (7) Peripheral arterial disease: Plan Markedly complex 69-year-old female readmitted to [facility] with acute decompensated diastolic congestive heart failure. Volume status and angina pectoris improved following IV diurisis, remaining minimally hypervolemic. Options of management discussed once again. Patient requests ongoing conservative nonsurgical medical management. Recommendations: * Check labs * Continue IV diuresis through today, likely switching to oral diuretics in AM of November 02, 2024. * Maintain normokalemia and normomagnesemia. * Increase metoprolol succinate to 75 mg twice per day * Continue aspirin 81 mg/day, clopidogrel 75 mg/day, Isosorbide 30 mg/day, and atorvastatin 40 mg/day. Supervising Physician Co-Signing Physician Notes Patient seen and examined. Past medical history, surgical history, social history and family history have been reviewed. The medical record and all the above studies have been reviewed. Case DW SAMY including management. HTN - uncontrolled -> better Abnormal Troponin - likely due to demand ischemia and not indicative of Type I TN CAD S/P PCI PAD with severe R subclavian stenosis Acute HFpEF - improved correct and f/u electrolytes f/u renal function changed IV to PO diuretics continue DAPT, Lipitor, Imdur continue metoprolol succinate GDMT for HFpEF as tolerated adjust anti-HTN meds keeping systolic BP between 100-140 mmHg avoid hypovolemia keep patient euvolemic salt restriction counseling f/u with vascular surgery as OP - DW patient and daughter at bedside stab;e from cardiac standpoint for discharge in AM if continue sto be stable f/u in Cardiology clinic post discharge History of Present Illness Reason for Consultation: Heart failure exacerbation with PAD, recurrent exacerbation, subclavian stenosis Requesting Physician: Dr. oJhn Londono, DO Attending Physician: Dr. John Londono, DO History of Present Illness Vicki Hardy is a very complex 69-year-old female who is being seen at the request of Dr. Londono. Listed reason for consultation is heart failure exacerbation with PAD, recurrent exacerbation, subclavian stenosis Patient hospitalized at [facility] in July 2024 with strokelike symptoms, left-sided facial droop, left upper extremity weakness and numbness. Markedly labile blood pressures observed, ranging from 95/63 to 205/93. Symptomatic hypotension intermittently noted on home monitoring with readings as low as 73/48, high at 144/62 leading to slight reduction in isosorbide dosing. Patient hospitalized at [facility] October 13, 2024 to October 16, 2024, presenting with whole body shaking and urinary frequency. Urine culture revealed pansensitive Enterococcus faecalis treated initially with ceftriaxone then 7-day course of Augmentin. Intermittent chest heaviness noted, improved with use of DuoNebs. Chest x-ray without acute findings. EKG without acute change. High-sensitivity troponin minimally elevated. Imdur increased back to 30 mg/day. Patient hospitalized at [facility] October 19, 2024 to October 23, 2024, presenting with shortness of breath and chest pressure. Initial EKG notable for inferolateral ST segment depression. High-sensitivity troponin was elevated as follows: 27.9 -> 47.5 -> 71.8 pg/mL. Resting echocardiography revealed normal to hyperdynamic LV systolic function without regional wall motion abnormalities. Left ventricle noted to be small, with moderate concentric LVH, with normal IVC diameter and respiratory variation, Doppler findings not suggestive of pulmonary hypertension. No significant valvular pathology observed. Cardiology was not involved in patient's care. Medication changes at that time included changing Furosemide 20 mg per day to Bumex 1 mg every OTHER day Patient returned to [facility] October 31, 2024 with complaints of increased shortness of breath, abdominal bloating which she feels strongly created chest pressure, and lower extremity peripheral edema. Patient states "I just started feeling up with fluid. They took me off my Lasix which I was on for the last 15 years and put me on Bumex every other day." Chest x-ray revealed, as per radiological interpretation, unchanged prominent interstitial markings throughout both lungs. EKG on presentation revealed normal sinus rhyt hm at 98 bpm. High-sensitivity troponin minimally elevated this admission, as follows: 20.2 -> 26.9 pg/mL. Patient prescribed IV Bumex at 1 mg twice per day on admission with improvement in dyspnea as well as fluid retention. She is feeling improved. No activity related chest pressure or discomfort prior to observed fluid retention. Chest pain occurs with "coughing fits." Swallowing is getting more difficult, uninterested in another PEG tube. Patient has to cough and choke to clear airway in order to get medications down leading to anxiety/panic attacks, palpitations. Chronically unable to lay flat. Chronic cervical neck pain. Stable right greater than left lower extremity claudication. Right upper extremity claudication when washing her hair. Chronic reddish/purplish discolored feet bilaterally. Occasional hemorrhoidal bleeding Problem List: Coronary heart disease Apparent silent septal versus anterior myocardial infarction with stent to the LAD performed in 2007 Cardiac catheterization last on 10/31/2015 at [facility], after presentation with chest discomfort and abnormal stress testing demonstrated the following: The left main was angiographically normal. The left anterior descending coronary artery was noted to have a patent stent in the proximal to midportion of the vessel followed by an 80% calcified stenosis. The circumflex coronary artery gave rise to 2 obtuse marginals and a 30% circumflex stenosis was noted. The right coronary artery was a dominant vessel with noted long 40% stenosis. Hyperdynamic LV systolic function was noted. The patient went on to have PCI and implantation of a Promus LITTLE to the mid LAD the same setting. Carotid artery stenosis, right subclavian artery occlusion, and moderate bilateral lower extremity PAD, followed by [facility] History of tobacco abuse, smoking related COPD, chronic bronchitis and emphysema, chronic aspiration pneumonia, chronic tracheostomy status - followed by [facility] Medicine. 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 History of symptomatic anemia requiring transfusions History of alcohol use/abuse. Chronic hyponatremia. Iron deficiency anemia. Hypertension Dyslipidemia Acquired hypothyroidism. Cervical disc disease Anxiety Osteoarthritis Allergies Allergy/AdvReac Type Severity Reaction Status Date / Time bee venom protein (honey bee) Allergy Severe Anaphylaxis Verified 10/19/24 22:43 latex Allergy Intermediate Rash Verified 10/19/24 22:43 oxycodone [From Percocet] Allergy Intermediate PER Verified 10/19/24 22:43 GMG--GETS LOOPY. Home Medications Medication Instructions Recorded Confirmed Type soft lens rinse,store solution 03/01/19 10/20/24 History (Saline Sensitive Eyes drops) buspirone 5 mg tablet 5 mg PO BID PRN Anxiety 10/31/19 10/19/24 History venlafaxine 75 mg tablet 75 mg PO BID 10/31/19 10/19/24 History aspirin 81 mg tablet,delayed 81 mg PO QAM 01/23/21 10/19/24 History release fluticasone propionate 50 2 spray intranasal DAILY PRN 01/23/21 10/19/24 History mcg/actuation nasal Congestion spray,suspension carbamide peroxide 6.5 % ear drops 5 drp otic (ear) DAILY PRN 03/24/21 10/19/24 History (Debrox) NEEDED sodium chloride 0.65 % nasal spray 2 spray NA DIRECTED PRN 03/24/21 10/19/24 History aerosol (Saline Mist) Congestion budesonide 160 mcg-glycopyr 9 2 inh inhalation AMHS 12/17/22 10/19/24 History mcg-formot 4.8 mcg/actuation HFA inhaler (Breztri Aerosphere) metoprolol succinate 50 mg 50 mg PO HS 02/18/23 10/19/24 History tablet,extended release 24 hr levothyroxine 75 mcg tablet 75 mcg PO DAILYBB 07/12/24 10/19/24 History atorvastatin 40 mg tablet 40 mg PO QAM #30 tabs 07/14/24 10/19/24 Rx clopidogrel 75 mg tablet 75 mg PO QAM #30 tabs 07/14/24 10/19/24 Rx acetaminophen 160 mg/5 mL (5 mL) 650 mg PO Q6H PRN pain/fever 10/13/24 10/19/24 History oral solution baclofen 10 mg tablet 10 mg PO BID 10/13/24 10/19/24 History cyanocobalamin (vitamin B-12) 500 500 mcg PO DAILY 10/13/24 10/19/24 History mcg tablet (Vitamin B-12) fexofenadine 180 mg tablet 180 mg PO DAILY PRN Allergy 10/13/24 10/19/24 History Symptoms fluocinolone 0.01 % topical body 1 applic topical DAILY PRN ITCHY 10/13/24 10/19/24 History oil EARS lidocaine 4 % topical patch 1 patch topical DAILY PRN Pain 10/13/24 10/19/24 History metoprolol succinate 50 mg 75 mg PO QAM 10/13/24 10/19/24 History tablet,extended release 24 hr isosorbide mononitrate 30 mg 30 mg PO QAM #30 tabs 10/16/24 10/19/24 Rx tablet,extended release 24 hr albuterol sulfate 90 mcg/actuation 2 puff inhalation Q2H PRN 10/22/24 10/19/24 Rx aerosol inhaler Shortness Of Breath #0 grams bumetanide 1 mg tablet 1 mg PO Q OTHER DAY 30 days #15 10/22/24 Rx tabs ipratropium 0.5 mg-albuterol 3 mg 3 ml NEB Q2H PRN shortness of 10/22/24 10/19/24 Rx (2.5 mg base)/3 mL nebulization breath or wheezing #180 mL soln sodium chloride 3 % for 3 ml inhalation Q6H PRN thickened 10/22/24 Rx nebulization secretions 30 days #120 mL Patient History Medical History 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 MONTENEGRO 2016 - ABN STRESS TEST [facility] - NO STENTS/ANGIOPLASTY History of tonsillectomy and adenoidectomy Family History Daughter Family history of reaction to anesthesia SLOW TO WAKE Father Family hx of colon cancer Other Colon cancer No pertinent family history Social History Smoking Status: Former smoker Tobacco Type: Cigarettes Cigarettes Per Day: 1-2; Second Hand Exposure: No; Do You Dip or Chew Tobacco: No; Hx Alcohol Use: No Hx Substance Use: No Preferred Language: Togolese Communication Ability: Effective Loftsman/Woman Required: No Beliefs That Will Affect Care: None marital status: Current Living Situation: Alone Current Living Situation Comment: norma visits daily current occupational status: retired Feels Safe at Home: Yes Safety Concerns: Feels Safe At This Time Assistive Devices: Nebulizer and Oxygen - at Night Review of Systems Review of Systems: Complete Review of Systems is as stated above, negative, or noncontributory. Physical Exam Physical Exam: General: A&Ox3. NAD. HENT: Normocephalic. Atraumatic. Eyes: PER. Neck: Tracheostomy. Heart: Regular at 90 bpm. Soft systolic ejection murmur. No diastolic murmur. Lungs: Diminished. Decrease. Faint dry bibasilar inspiratory rales. No wheeze. Abdomen: +BS. Soft. Nontender. Extremities: Minimal distal bilateral lower extremity edema. Limited neurological examination is without focal deficits. Pulses: radial=2/4 on the left, 0/4 on the right. No posterior tibial or dorsalis pedis pulses. + Discolored feet distally. Results & Data Vital Signs (Past 12 Hours) Vital Signs Temp Pulse Pulse Resp BP BP BP 11/01/24 07:39 36.2 C L 89 20 100/62 11/01/24 07:13 87 20 11/01/24 04:04 101 H 24 11/01/24 01:10 11/01/24 01:02 36.8 C 109 H 18 206/76 H 11/01/24 00:21 106 H 21 205/94 H 11/01/24 00:00 105 H 23 205/94 H 10/31/24 23:00 102 H 26 H 177/78 H 10/31/24 22:30 98 H 21 159/71 H 10/31/24 21:56 107 H 10/31/24 21:44 97 H Pulse Ox O2 Del Method O2 Flow Rate FiO2 11/01/24 07:39 92 Trach Collar 8.0 11/01/24 07:13 99 Trach Collar 8 35 11/01/24 04:04 92 Trach Collar 8 35 11/01/24 01:10 Trach Collar 7 11/01/24 01:02 92 Room Air 11/01/24 00:21 95 Trach Collar 5 11/01/24 00:00 96 Trach Collar 5 10/31/24 23:00 95 Trach Collar 5 35 10/31/24 22:30 98 Trach Collar 5 35 10/31/24 21:56 96 Trach Collar 5 35 10/31/24 21:44 Laboratory Results Cardiac Enzymes 10/31/24 10/31/24 11/01/24 Range/Units 21:22 23:20 06:50 AST 26 (13-39) U/L Troponin I High Sens 21.6 H 20.2 H 26.9 H (0-14) pg/ml B-Natriuretic Peptide 624 H (0-100) pg/ml Coagulation 10/31/24 Range/Units 21:22 PT 11.6 (9.0-12.0) Seconds B-Natriuretic Peptide 624 H (0-100) pg/ml CBC 10/31/24 Range/Units 21:22 WBC 8.15 (4.8-10.8) K/ul RBC 3.66 L (4.20-5.40) M/uL Hgb 11.3 L (12.0-16.0) g/dl Hct 33.9 L (37.0-47.0) % Plt Count 317 (130-400) K/uL Neut # (Auto) 6.08 (1.40-6.50) K/uL Lymph # (Auto) 0.98 L (1.20-3.40) K/uL Cooper # (Auto) 0.74 H (0.11-0.59) K/uL Eos # (Auto) 0.24 (0.00-0.50) K/uL Baso # (Auto) 0.07 (0.00-0.20) K/uL Comprehensive Metabolic Panel 10/31/24 Range/Units 21:22 Sodium 135 L (136-145) mmol/L Potassium 3.7 (3.5-5.1) mmol/L Chloride 96 L (98-107) mmol/L Carbon Dioxide 31 (21-32) mmol/L BUN 18 (6-23) mg/dl Creatinine 0.66 (0.6-1.2) mg/dl Glucose 124 H (70-99(Fasting)) mg/dl Calcium 9.6 (8.6-10.3) mg/dl AST 26 (13-39) U/L ALT 15 (7-52) U/L Alkaline Phosphatase 78 (34-104) U/L Total Protein 7.6 (6.0-8.3) gm/dl Albumin 3.5 (3.4-5.0) gm/dl Intake and Output 10/31/24 11/01/24 11/01/24 22:59 06:59 14:59 Intake Total 0 / 100 100 / 100 Output Total 1650 / 1650 Balance 0 / -1550 -1550 / -1550 Intake: IV 100 / 100 Potassium Chloride / Wtr 10 meq 100 / 100 In 100 ml @ 100 mls/hr IV ONE ONE Rx#:[id number] Oral 0 / 0 Output: Urine 1650 / 1650 Other: Other Intake Source sips Weight 44.5 kg 43.545 kg Weight Measurement Method Built in Bedscale Built in Bedscale Diagnostic Findings LDL cholesterol 51 mg/dL on July 13, 2024 ([facility] EMR) July 12, 2024 Neck CTA findings ([facility]): Emphysema is incidentally noted within the visualized lung apices. A tracheostomy tube is in place. Supraglottic soft tissue thickening is similar to CT of March 24, 2021. This may be treatment related. No cervical lymphadenopathy is present. There is extensive plaque wit hin the visualized portions of the aortic arch. Extensive atherosclerotic plaque is noted within the bilateral common carotid, cervical internal carotid and vertebral arteries. There is occlusion of the right subclavian artery and the proximal right vertebral artery with distal reconstitution. The right vertebral artery is diminutive. There is moderate stenosis of the distal left subclavian artery and severe stenosis of the left axillary artery with severe stenosis at the origin of the left vertebral artery. Additional moderate multifocal stenoses within the left vertebral artery are present. There is no aneurysm or dissection within the neck. There is extensive calcified plaque within the mid to distal right common carotid artery which results in severe multifocal stenoses. There is greater than 95% stenosis of the distal right common carotid artery and the proximal right internal carotid artery. There is severe stenosis at the origin of the left common carotid artery with moderate stenoses within the remainder of the left common carotid artery. There is moderate stenosis at the origin of the left internal carotid artery. October 20, 2024 TTE Summary: The left ventricular cavity size is small. There is moderate concentric LVH. Left ventricular wall motion is normal. Left ventricular ejection fraction 65 to 70%. No significant valvular disease. Normal IVC diameter and respiratory variation suggesting normal central venous pressure. Doppler findings do not suggest pulmonary hypertension. Telemetry: Sinus, sinus tachycardia. Short run of PA at 05:11 PG Care Time/CCT Total # of Minutes Spent Total Time Spent with Patient: Total time spent is greater than 50% in coordination of care (as documented) at patient's floor/unit and/or counseling patient. I spent a total of 80 minutes on the date of service in preparation, delivery, and documentation of the care provided to this patient excluding any time spent in the performance of separately billed services. This visit was a split-shared visit with the substantive portion of the medical decision making performed by the supervising trading assistant/billing provider, Dr. Lund Coding Level of Care Code 25329 IN/OBS CONSULT LVL 5,80M Diagnoses Heart failure, diastolic, with acute decompensation I50.33 ASCVD (arteriosclerotic cardiovascular disease) I25.10 Sinus tachycardia R00.0 Labile hypertension R09.89 Carotid stenosis I65.23 Laterality: bilateral Subclavian artery stenosis, right I77.1 Peripheral arterial disease I73.9 (5) Carotid stenosis Laterality: bilateral Qualified Code(s): I65.23 - Occlusion and stenosis of bilateral carotid arteries
[2024-11-01 10:58] LABS: Anion Gap 8.0 (3-11); Blood Urea Nitrogen 16.0 mg/dl (6-23); Calcium 9.5 mg/dl (8.6-10.3); Carbon Dioxide 32.0 mmol/L (21-32); Chloride 95.0 mmol/L (98-107); Creatinine Clr Calc Pharmacy 47.9 ml/min; Glucose 92.0 mg/dl (70-99(Fasting)); Magnesium 1.9 mg/dl (1.7-2.4); Potassium 4.1 mmol/L (3.5-5.1); Sodium 135.0 mmol/L (136-145)
--- NOTE | 2024-11-01 11:30 | Ultrasound Report ---
US abdomen ltd ascites HISTORY: 69 years-old Female Abdominal distension iso HF acute generalized abdominal pain with diste ntion COMPARISON: CT 12/17/2022 TECHNIQUE: Limited abdominal ultrasound was obtained assessing for ascites FINDINGS: No ascites identified on this exam. No hepatic mass lesion identified. IMPRESSION: No ascites identified. ACT 112: Negative or not required by law. The above report was generated using voice recognition software. It may contain grammatical, syntax o r spelling errors. Electronically signed by: Cristopher Tai M.D. 11/01/2024 11:29 AM
[2024-11-01] MEDS: LIDOCAINE 5% 1 PATCH TD SCH (20:48)
[2024-11-01] MEDS: REMOVE LIDODERM PATCH SCH (20:50)
[2024-11-01] MEDS ORDERED: METOPROLOL SUCC 50MG EXT REL TAB PO SCH (21:00)
--- NOTE | 2024-11-02 05:22 | Electrocardiogram Report ---
Test Reason : Blood Pressure : */* mmHG Vent. Rate : 98 BPM Atrial Rate : 98 BPM P-R Int : 164 ms QRS Dur : 78 ms QT Int : 354 ms P-R-T Axes : 81 40 53 degrees QTcB Int : 451 ms Normal sinus rhythm Normal ECG When compared with ECG of 19-Oct-2024 19:32, ST no longer depressed in Inferior leads ST no longer depressed in Anterolateral leads T wave inversion no longer evident in Anterolateral leads Confirmed by Lg Varela ([id number]) on 11/02/2024 5:21:41 AM Referred By: REFERRED SELF Confirmed By: Lg Varela
--- NOTE | 2024-11-02 07:50 | Hospitalist Progress Note ---
Date of Service November 02, 2024 Assessment & Plan (1) Acute on chronic heart failure with preserved ejection fraction: Plan In summary this is a 69-year-old female who presented with progressive shortness of breath and dyspnea on exertion, found to have an acute on chronic heart failu yuval/Dave. Acute on chronic heart failure with preserved ejection fraction Previously diagnosed; most recent ejection fraction of 65 to 70% obtained 10/2024; consistent with HFpEF; most recent diuretic rate of 0.63 (1.58) mL/kg/h; suspect that the patient's admission is consequential of inadequate outpatient diuresis based on previous change in loop diuretic frequency from daily to every other day -Nursing to notify of new or increased oxygen requirement, sustained heart rate of greater than 120 or less than 50 bpm - Continue low-sodium diet - Measure intake and output every shift -Transition to bumetanide 1 mg p.o. daily - Follow daily RFP and Magnesium - Cardiology consulted DVT PPx: continue Lovenox 40 mg SQ daily Admission and Anticipated Discharge Date Admission Date: October 31, 2024 Anticipated date of discharge: 11/03/24 Subjective Ms. Hardy is a 69-year-old female whose active medical conditions include hypertension, hyperlipidemia, coronary and peripheral arterial disease, chronic obstructive pulmonary disease in the setting of chronic respiratory failure with home oxygen via tracheostomy among other chronic medical conditions who was admitted to [facility] on 11/01 due to acute on chronic heart failure exacerbation. No acute overnight events. Review of Systems Review of Systems: Review of constitutional, pulmonary, cardiovascular, gastrointestinal systems was unremarkable Physical Exam Physical Exam: General: Adult female in no acute distress Vital Signs: reviewed; saturating 92 to 95% on 3 L via trach mask HEENT: pupils equally round reactive to light; extraocular motion intact; tacky mucous membranes Neck: tracheostomy site appears well Pulmonary: symmetric chest wall excursion without restrictions; coarse bilateral air movement without diminished movement Cardiovascular: regular rate and rhythm without murmurs, rubs, or gallops; S1 and S2 normal; bilateral radial and posterior tibial pulse 2+ without lower extremity edema Neurologic: CN II-XII grossly intact; no discernible focal weakness nor paresthesias Results & Data Results & Data Vital Signs (Past 12 Hours) Vital Signs Temp Pulse Pulse Resp BP Pulse Ox Pulse Ox 11/02/24 06:53 88 17 94 11/02/24 04:58 75 11/02/24 03:14 36.7 C 85 20 130/80 93 11/02/24 03:10 85 18 94 11/02/24 00:45 94 11/01/24 22:36 36.6 C 81 20 132/60 93 11/01/24 22:13 11/01/24 20:13 88 22 98 O2 Del Method O2 Del Method O2 Flow Rate FiO2 11/02/24 06:53 Trach Collar 7 28 11/02/24 04:58 11/02/24 03:14 Trach Collar 11/02/24 03:10 Trach Collar 8 30 11/02/24 00:45 Trach Collar 11/01/24 22:36 Trach Collar 11/01/24 22:13 Trach Collar 5 11/01/24 20:13 Trach Collar 8 30 PG Care Time/CCT Total # of Minutes Spent Total Time Spent with Patient: Total time spent is greater than 50% in coordination of care (as documented) at patient's floor/unit and/or counseling patient: Coding Level of Care Code 36481 SUB INP/OBS CARE 2/35MIN Diagnoses Acute on chronic heart failure with preserved ejection fraction I50.33
[2024-11-02 08:23] LABS: Anion Gap 9.0 (3-11); Calcium 9.1 mg/dl (8.6-10.3); Carbon Dioxide 29.0 mmol/L (21-32); Chloride 96.0 mmol/L (98-107); Magnesium 2.0 mg/dl (1.7-2.4); Potassium 3.5 mmol/L (3.5-5.1); Sodium 134.0 mmol/L (136-145)
[2024-11-02 08:28] LABS: Blood Urea Nitrogen 19.0 mg/dl (6-23); Creatinine Clr Calc Pharmacy 49.4 ml/min; Glucose 73.0 mg/dl (70-99(Fasting))
[2024-11-02] MEDS: BUMETANIDE 1 MG TAB PO SCH (09:14)
--- NOTE | 2024-11-02 11:02 | Cardiology Progress Note ---
Date of Service November 02, 2024 Assessment & Plan (1) Heart failure, diastolic, with acute decompensation: (2) ASCVD (arteriosclerotic cardiovascular disease): (3) Sinus tachycardia: (4) Labile hypertension: (5) Carotid stenosis: (6) Subclavian artery stenosis, right: (7) Peripheral arterial disease: Plan 69 Y W admitted with acute decompensated diastolic congestive heart failure with improvement with IV diuresis. Options of management discussed once again. HTN - uncontrolled -> better Abnormal Troponin - likely due to demand ischemia and not indicative of Type I [place] CAD S/P PCI PAD with severe R subclavian stenosis Acute HFpEF - improved correct and f/u electrolytes f/u renal function changed to PO diuretics continue DAPT, Lipitor, Imdur continue metoprolol succinate started Norvasc GDMT for HFpEF as tolerated adjust anti-HTN meds keeping systolic BP between 100-140 mmHg avoid hypovolemia keep patient euvolemic salt restriction counseling f/u with vascular surgery as OP stable from cardiac standpoint for discharge f/u in Cardiology clinic post discharge Admission and Anticipated Discharge Date Admission Date: October 31, 2024 Subjective 69 Y W with h/o hypertension, hyperlipidemia, coronary and peripheral arterial disease, chronic obstructive pulmonary disease in the setting of chronic respiratory failure with home oxygen via tracheostomy among other chronic medical conditions who was admitted to [facility] on 11/01 due to acute on chronic heart failure exacerbation. Patient on exam is sitting in chair in NAD; no c/o cp, sob, palpitations, dizziness, LOC Review of Systems Review of Systems: Complete Review of Systems is as stated above, negative, or noncontributory. Physical Exam Physical Exam: General: A&Ox3. NAD. HENT: Normocephalic. Atraumatic. Eyes: PER. Neck: Tracheostomy. Heart: Regular at 90 bpm. Soft systolic ejection murmur. No diastolic murmur. Lungs: Diminished. Decrease. Faint dry bibasilar inspiratory rales. No wheeze. Abdomen: +BS. Soft. Nontender. Extremities: Minimal distal bilateral lower extremity edema. Limited neurological examination is without focal deficits. Results & Data Vital Signs (Past 12 Hours) Vital Signs Temp Pulse Pulse Resp BP Pulse Ox Pulse Ox 11/02/24 10:17 62 11/02/24 09:20 78 150/95 H 11/02/24 07:58 11/02/24 07:43 36.3 C L 86 17 161/72 H 93 11/02/24 06:53 88 17 94 11/02/24 04:58 75 11/02/24 03:14 36.7 C 85 20 130/80 93 11/02/24 03:10 85 18 94 11/02/24 00:45 94 O2 Del Method O2 Del Method O2 Flow Rate FiO2 11/02/24 10:17 11/02/24 09:20 11/02/24 07:58 Trach Collar 7 11/02/24 07:43 Trach Collar 7 11/02/24 06:53 Trach Collar 7 11/02/24 04:58 11/02/24 03:14 Trach Collar 11/02/24 03:10 Trach Collar 8 30 11/02/24 00:45 Trach Collar Laboratory Results Comprehensive Metabolic Panel 11/01/24 11/02/24 Range/Units 10:24 06:43 Sodium 135 L 134 L (136-145) mmol/L Potassium 4.1 3.5 (3.5-5.1) mmol/L Chloride 95 L 96 L (98-107) mmol/L Carbon Dioxide 32 29 (21-32) mmol/L BUN 16 19 (6-23) mg/dl Creatinine 0.74 0.71 (0.6-1.2) mg/dl Glucose 92 73 (70-99(Fasting)) mg/dl Calcium 9.5 9.1 (8.6-10.3) mg/dl Albumin 3.6 (3.4-5.0) gm/dl Intake and Output 11/01/24 11/02/24 11/02/24 22:59 06:59 14:59 Intake Total 100 / 200 100 / 200 Output Total 450 / 650 200 / 650 200 / 200 Balance -350 / -450 -100 / -450 -200 / -200 Intake: Oral 100 / 200 100 / 200 Output: Urine 450 / 650 200 / 650 200 / 200 Other: Other Intake Source Sips Weight 43.1 kg Medications Administered Home Medications Medication Instructions Recorded Confirmed Last Taken soft lens rinse,store solution 03/01/19 10/20/24 Unknown (Saline Sensitive Eyes drops) buspirone 5 mg tablet 5 mg PO BID PRN Anxiety 10/31/19 10/19/24 07/12/24 10:30 venlafaxine 75 mg tablet 75 mg PO BID 10/31/19 10/19/24 10/13/24 08:00 aspirin 81 mg tablet,delayed 81 mg PO QAM 01/23/21 10/19/24 10/13/24 release fluticasone propionate 50 2 spray intranasal DAILY PRN 01/23/21 10/19/24 03/23/21 mcg/actuation nasal Congestion spray,suspension carbamide peroxide 6.5 % ear drops 5 drp otic (ear) DAILY PRN 03/24/21 10/19/24 Unknown (Debrox) NEEDED sodium chloride 0.65 % nasal spray 2 spray NA DIRECTED PRN 03/24/21 10/19/24 Unknown aerosol (Saline Mist) Congestion budesonide 160 mcg-glycopyr 9 2 inh inhalation AMHS 12/17/22 10/19/24 10/13/24 08:00 mcg-formot 4.8 mcg/actuation HFA inhaler (Breztri Aerosphere) metoprolol succinate 50 mg 50 mg PO HS 02/18/23 10/19/24 10/12/24 tablet,extended release 24 hr levothyroxine 75 mcg tablet 75 mcg PO DAILYBB 07/12/24 10/19/24 10/13/24 atorvastatin 40 mg tablet 40 mg PO QAM #30 tabs 07/14/24 10/19/24 10/13/24 clopidogrel 75 mg tablet 75 mg PO QAM #30 tabs 07/14/24 10/19/24 10/13/24 acetaminophen 160 mg/5 mL (5 mL) 650 mg PO Q6H PRN pain/fever 10/13/24 10/19/24 Unknown oral solution baclofen 10 mg tablet 10 mg PO BID 10/13/24 10/19/24 10/13/24 08:00 cyanocobalamin (vitamin B-12) 500 500 mcg PO DAILY 10/13/24 10/19/24 10/13/24 mcg tablet (Vitamin B-12) fexofenadine 180 mg tablet 180 mg PO DAILY PRN Allergy 10/13/24 10/19/24 Unknown Symptoms fluocinolone 0.01 % topical body 1 applic topical DAILY PRN ITCHY 10/13/24 10/19/24 Unknown oil EARS lidocaine 4 % topical patch 1 patch topical DAILY PRN Pain 10/13/24 10/19/24 Unknown metoprolol succinate 50 mg 75 mg PO QAM 10/13/24 10/19/24 10/13/24 tablet,extended release 24 hr isosorbide mononitrate 30 mg 30 mg PO QAM #30 tabs 10/16/24 10/19/24 Unknown tablet,extended release 24 hr albuterol sulfate 90 mcg/actuation 2 puff inhalation Q2H PRN 10/22/24 10/19/24 Unknown aerosol inhaler Shortness Of Breath #0 grams bumetanide 1 mg tablet 1 mg PO Q OTHER DAY 30 days #15 10/22/24 Unknown tabs ipratropium 0.5 mg-albuterol 3 mg 3 ml NEB Q2H PRN shortness of 10/22/24 10/19/24 Unknown (2.5 mg base)/3 mL nebulization breath or wheezing #180 mL soln sodium chloride 3 % for 3 ml inhalation Q6H PRN thickened 10/22/24 Unknown nebulization secretions 30 days #120 mL Active Medications Generic Name Dose Route Start Last Admin Trade Name Freq PRN Reason Stop Dose Admin Acetaminophen 650 mg 11/01/24 00:45 11/01/24 03:44 Acetaminophen 325 Mg Tab PO 12/01/24 00:44 650 mg Q4H PRN Administration Pain or Fever Albuterol 3 ml 11/01/24 00:45 11/02/24 06:51 Albut/Ipratrop 3mg/0.5mg Neb 3 Ml Vial NEB 12/01/24 00:44 3 ml Q2H PRN Administration shortness of breath or wheezing Protocol Amlodipine Besylate 5 mg 11/02/24 09:00 11/02/24 10:06 Amlodipine Besylate 5 Mg Tab PO 12/02/24 08:59 5 mg QAM JUANY Administration Aspirin 81 mg 11/01/24 09:00 11/02/24 09:13 Aspirin 81 Mg Ectab PO 12/01/24 08:59 81 mg QAM JUANY Administration Atorvastatin Calcium 40 mg 11/01/24 09:00 11/02/24 09:13 Atorvastatin 40 Mg Tab PO 12/01/24 08:59 40 mg QAM JUANY Administration Baclofen 10 mg 11/01/24 09:00 11/02/24 09:14 Baclofen 10 Mg Tab PO 12/01/24 08:59 10 mg BID JUANY Administration Bumetanide 1 mg 11/02/24 09:00 11/02/24 09:14 Bumetanide 1 Mg Tab PO 12/02/24 08:59 1 mg QAM JUANY Administration Buspirone HCl 5 mg 11/01/24 00:45 11/01/24 01:33 Buspirone 5 Mg Tab PO 12/01/24 00:44 5 mg BID PRN Administration Anxiety Clopidogrel Bisulfate 75 mg 11/01/24 09:00 11/02/24 09:14 Clopidogrel Bisulfate 75 Mg Tab PO 12/01/24 08:59 75 mg QAM JUANY Administration Cyanocobalamin 500 mcg 11/01/24 09:00 11/02/24 09:14 Cyanocobalamin (B-12) 500 Mcg Tablet PO 12/01/24 08:59 500 mcg DAILY JUANY Administration Enoxaparin Sodium 40 mg 11/01/24 09:00 11/02/24 09:14 Enoxaparin Inj 40 Mg/0.4 Ml Syr SQ 12/01/24 08:59 40 mg Q24H JUANY Administration Fluticasone Furoate 1 puffs 11/01/24 09:00 11/02/24 09:17 Fluticasone Furoate 200mcg 14 Puffs/Inhaler INH 12/01/24 08:59 1 puffs DAILY JUANY Administration Isosorbide Mononitrate 30 mg 11/01/24 09:00 11/02/24 09:13 Isosorbide Bent Extended Rel 30 Mg Tabcr PO 12/01/24 08:59 30 mg QAM JUANY Administration Levothyroxine Sodium 75 mcg 11/01/24 06:30 11/02/24 05:55 Levothyroxine Sodium 75 Mcg Tablet PO 12/01/24 06:29 75 mcg DAILYBB JUANY Administration Lidocaine 1 patch 11/01/24 21:00 11/01/24 20:48 Lidocaine 5% 1 Patch TD 12/01/24 20:59 1 patch QPM JUANY Administration Metoprolol Succinate 75 mg 11/01/24 21:00 11/02/24 09:16 Metoprolol Succ 25mg Ext Rel Tab PO 12/01/24 20:59 75 mg BID JUANY Administration Miscellaneous 1 each 11/01/24 08:00 11/02/24 08:53 Sodium Chloride 3% Neb: Order Awaiting Action N/A 12/01/24 07:59 Not Given QS JUANY Miscellaneous 1 each 11/01/24 21:00 11/01/24 20:50 Remove Lidoderm Patch N/A 12/01/24 20:59 Not Given DAILY@2100 JUANY Umeclidinium/Vilanterol 1 puffs 11/01/24 09:00 11/02/24 09:17 Umeclidinium/Vilanterol 62.5/25mcg 7 Puffs/Inhaler INH 12/01/24 08:59 1 puffs DAILY JUANY Administration Venlafaxine HCl 75 mg 11/01/24 00:45 11/02/24 09:17 Venlafaxine Hcl 37.5 Mg Tab PO 12/01/24 00:44 75 mg BIDM JUANY Administration PG Care Time/CCT Total # of Minutes Spent Total Time Spent with Patient: Total time spent is greater than 50% in coordination of care (as documented) at patient's floor/unit and/or counseling patient: Coding Level of Care Code 33535 SUB INP/OBS CARE 3/50MIN Diagnoses Heart failure, diastolic, with acute decompensation I50.33 ASCVD (arteriosclerotic cardiovascular disease) I25.10 Sinus tachycardia R00.0 Labile hypertension R09.89 Carotid stenosis I65.23 Laterality: bilateral Subclavian artery stenosis, right I77.1 Peripheral arterial disease I73.9 (5) Carotid stenosis Laterality: bilateral Qualified Code(s): I65.23 - Occlusion and stenosis of bilateral carotid arteries
[2024-11-02] MEDS: ACETAMINOPHEN 500 MG TAB PO STA (15:34)
--- NOTE | 2024-11-02 17:29 | Electrocardiogram Report ---
Test Reason : Blood Pressure : */* mmHG Vent. Rate : 75 BPM Atrial Rate : * BPM P-R Int : * ms QRS Dur : 86 ms QT Int : 420 ms P-R-T Axes : * 72 90 degrees QTcB Int : 469 ms Poor data quality, interpretation may be adversely affected Normal sinus rhythm Nonspecific T wave abnormality Abnormal ECG When compared with ECG of 31-Oct-2024 21:44, No significant change Confirmed by Lg Varela ([id number]) on 11/02/2024 5:29:04 PM Referred By: REFERRED SELF Confirmed By: Lg Varela
--- NOTE | 2024-11-02 17:29 | Electrocardiogram Report ---
Test Reason : Blood Pressure : */* mmHG Vent. Rate : 76 BPM Atrial Rate : 76 BPM P-R Int : 164 ms QRS Dur : 78 ms QT Int : 396 ms P-R-T Axes : 104 75 91 degrees QTcB Int : 445 ms Poor data quality, interpretation may be adversely affected Normal sinus rhythm Nonspecific T wave abnormality When compared with ECG of 02-Nov-2024 13:15, No significant change Confirmed by Lg Varela ([id number]) on 11/02/2024 5:29:43 PM Referred By: REFERRED SELF Confirmed By: Lg Varela
[2024-11-02] MEDS: NITROGLYCERIN SL 0.4 MG/TAB TAB SL STA (17:46)
[2024-11-03] MEDS: LOPERAMIDE HCL 2 MG CAP PO STA (06:49)
--- NOTE | 2024-11-03 07:38 | Hospitalist Progress Note ---
Date of Service November 03, 2024 Assessment & Plan (1) Acute on chronic heart failure with preserved ejection fraction: Plan In summary this is a 69-year-old female who presented with progressive shortness of breath and dyspnea on exertion, found to have an acute on chronic heart failu yuval/Dave. Acute on chronic heart failure with preserved ejection fraction Previously diagnosed; most recent ejection fraction of 65 to 70% obtained 10/2024; consistent with HFpEF; most recent diuretic rate of 0.63 (1.58) mL/kg/h; suspect that the patient's admission is consequential of inadequate outpatient diuresis based on previous change in loop diuretic frequency from daily to every other day - Nursing to notify of new or increased oxygen requirement, sustained heart rate of greater than 120 or less than 50 bpm - Continue low-sodium diet - Measure intake and output every shift - Continue bumetanide 1 mg p.o. daily - Obtain orthostatic vital signs - Follow daily RFP and Magnesium - Cardiology consulted DVT PPx: continue Lovenox 40 mg SQ daily Admission and Anticipated Discharge Date Admission Date: October 31, 2024 Anticipated date of discharge: 11/03/24 Subjective Ms. Hardy is a 69-year-old female whose active medical conditions include hypertension, hyperlipidemia, coronary and peripheral arterial disease, chronic obstructive pulmonary disease in the setting of chronic respiratory failure with home oxygen via tracheostomy among other chronic medical conditions who was admitted to [facility] on 11/01 due to acute on chronic heart failure exacerbation. In the evening of 11/02 the patient experienced persistent bilateral arm discomfort for which they were concerned of a possible anginal equivalent; assessment at that time did not reveal any cardiac cause or changes concerning for cardiac ischemia. Otherwise, no acute overnight events. Review of Systems Review of Systems: Review of constitutional, pulmonary, cardiovascular, gastrointestinal systems was unremarkable Physical Exam Physical Exam: General: Adult female in no acute distress Vital Signs: reviewed; saturating 92 to 95% on 3 L via trach mask HEENT: pupils equally round reactive to light; extraocular motion intact; tacky mucous membranes Neck: tracheostomy site appears well Pulmonary: symmetric chest wall excursion without restrictions; coarse bilateral air movement without diminished movement Cardiovascular: regular rate and rhythm without murmurs, rubs, or gallops; S1 and S2 normal; bilateral radial and posterior tibial pulse 2+ without lower extremity edema Neurologic: CN II-XII grossly intact; no discernible focal weakness nor paresthesias Results & Data Results & Data Vital Signs (Past 12 Hours) Vital Signs Temp Pulse Pulse Resp BP Pulse Ox O2 Del Method 11/03/24 03:20 36.4 C L 70 18 129/66 92 Trach Collar 11/03/24 00:22 75 18 92 Trach Collar 11/02/24 23:33 36.6 C 69 18 132/66 98 Trach Collar 11/02/24 23:10 79 O2 Flow Rate FiO2 11/03/24 03:20 8 11/03/24 00:22 8 28 11/02/24 23:33 8 11/02/24 23:10 PG Care Time/CCT Total # of Minutes Spent Total Time Spent with Patient: Total time spent is greater than 50% in coordination of care (as documented) at patient's floor/unit and/or counseling patient: Coding Level of Care Code 52598 SUB INP/OBS CARE 2/35MIN Diagnoses Acute on chronic heart failure with preserved ejection fraction I50.33
[2024-11-03 09:13] LABS: Anion Gap 8.0 (3-11); Calcium 9.4 mg/dl (8.6-10.3); Carbon Dioxide 31.0 mmol/L (21-32); Chloride 95.0 mmol/L (98-107); Magnesium 2.2 mg/dl (1.7-2.4); Potassium 3.4 mmol/L (3.5-5.1); Sodium 134.0 mmol/L (136-145)
[2024-11-03 09:18] LABS: Blood Urea Nitrogen 19.0 mg/dl (6-23); Creatinine Clr Calc Pharmacy 51.4 ml/min; Glucose 82.0 mg/dl (70-99(Fasting))
[2024-11-03] MEDS: PSYLLIUM HUSK 4GM PACKET PO SCH (09:38)
[2024-11-04 06:39] LABS: Anion Gap 9.0 (3-11); Blood Urea Nitrogen 16.0 mg/dl (6-23); Calcium 9.3 mg/dl (8.6-10.3); Carbon Dioxide 32.0 mmol/L (21-32); Chloride 95.0 mmol/L (98-107); Creatinine Clr Calc Pharmacy 49.0 ml/min; Glucose 84.0 mg/dl (70-99(Fasting)); Potassium 3.3 mmol/L (3.5-5.1); Sodium 136.0 mmol/L (136-145)
--- NOTE | 2024-11-04 07:15 | Hospitalist Progress Note ---
Date of Service November 04, 2024 Assessment & Plan Admission and Anticipated Discharge Date Admission Date: October 31, 2024 Results & Data Results & Data Vital Signs (Past 12 Hours) Vital Signs Temp Pulse Resp BP Pulse Ox O2 Del Method O2 Flow Rate 11/03/24 22:44 36.8 C 79 20 111/66 95 Trach Collar 11/03/24 20:21 85 16 99 Trach Collar 8 11/03/24 19:35 Trach Collar 4 FiO2 11/03/24 22:44 11/03/24 20:21 28 11/03/24 19:35 28 PG Care Time/CCT Total # of Minutes Spent Total Time Spent with Patient: Total time spent is greater than 50% in coordination of care (as documented) at patient's floor/unit and/or counseling patient: Coding
[2024-11-04 08:44] VITALS: PULSE 94; RESP 18; TEMP 97.3; O2SAT 97
[2024-11-04 11:11] VITALS: BP 105/49
--- NOTE | 2024-11-05 07:52 | Discharge Summary ---
Discharge Summary Date of Service November 04, 2024 Principal Dx & Hospital Course #1 = Principal Diagnosis (1) Acute on chronic heart failure with preserved ejection fraction: Plan In summary this is a 69-year-old female who presented with progressive shortness of breath and dyspnea on exertion, found to have an acute on chronic heart failure/Bashan. Acute on chronic heart failure with preserved ejection fraction Previously diagnosed; most recent ejection fraction of 65 to 70% obtained 10/2024; consistent with HFpEF; most recent diuretic rate of 0.63 (1.58) mL/kg/h; suspect that the patient's admission is consequential of inadequate outpatient diuresis based on previous change in loop diuretic frequency from daily to every other day - Nursing to notify of new or increased oxygen requirement, sustained heart rate of greater than 120 or less than 50 bpm - Continue low-sodium diet - Measure intake and output every shift - Continue bumetanide 1 mg p.o. daily - Follow daily RFP and Magnesium - Cardiology consulted DVT PPx: continue Lovenox 40 mg SQ daily Notes For Next Care Provider Patient identified high risk for 30- day readmission. Our hospitalist team would be glad to discuss any details of the hospital stay with you, please reach out by [place] [facility] with a good call back number and we will return your call. Medication Changes From Visit Start bumetanide 1 mg p.o. daily Start potassium chloride elixir 40 mEq daily Admission HPI Per Admitting Provider The patient is a 69-year-old female with past medical history including CAD, hypertension, chronic hypoxic respiratory failure, hypothyroidism, urinary tract infection, PAD, right subclavian artery stenosis, tracheostomy dependent, and carotid stenosis. The patient presents to the emergency department with her daughter, due to complaints of worsening shortness of breath, increased oxygen requirement at home over the past few days. She has oxygen as needed at home, however, can frequently do without. She has however over the past few days req uired oxygen 2 L, to improve oxygenation and comfort of breathing. She has a tracheostomy, and gets oxygen via trach collar. Most recent hospitalizations were from 10/13-10/16/2024, and 10/19-10/23/2024. Workup in the emergency department included chest x-ray suggestive of CHF, troponin of 21.6, and BNP 624. Patient was given bumetanide 1 mg IV, and referred for evaluation for admission. Most recent echocardiogram was on 10/21/2024, with ejection fraction 65-70%. Discharge Exam General: Adult female in no acute distress Vital Signs: reviewed; saturating 92 to 95% on 3 L via trach mask HEENT: pupils equally round reactive to light; extraocular motion intact; tacky mucous membranes Neck: tracheostomy site appears well Pulmonary: symmetric chest wall excursion without restrictions; coarse bilateral air movement without diminished movement Cardiovascular: regular rate and rhythm without murmurs, rubs, or gallops; S1 and S2 normal; bilateral radial and posterior tibial pulse 2+ without lower extremity edema Neurologic: CN II-XII grossly intact; no discernible focal weakness nor paresthesias Discharge Plan Discharge Items Patient Disposition: Home - Self-Care Reason For Visit: ACUTE ON CHRONIC RESPIRATORY FAILURE, CHF EX Discharge Diagnosis: Acute on chronic heart failure with preserved ejection fraction Condition on Discharge: Fair Activity: Per Instructions section Non-emergency contact: Primary Care Provider, Dental Director and Break Up Worker Call non-emergency contact if: you have any medication questions and your symptoms worsen Follow-up/Referrals: Paola Wilson MD [Primary Care Provider] - Diet: Low Fat Fluids: 1800ml (7 cups) Addtl Attending Provider Instructions: You were admitted to [facility] for acute on chronic heart failure with preserved ejection fraction, most likely consequential of inadequate outpatient diuresis from your previous hospitalization With regard to your heart failure with preserved ejection fraction, increasing the frequency of your previously prescribed diuretic therapy to daily as opposed to every other day has significantly improved your symptomatology without excessive diuresis. There is still concern with regard to the thickening of your pulmonary secretions, for which it appears your deputy court has provided Mucomyst, and additional as needed inhaler therapies. Thank you for choosing [facility] as your healthcare provider. Pending Studies at Discharge: No Stand-Alone Forms: My [facility] Medications and DC Order Prescriptions: New potassium chloride 40 mEq/15 mL liquid 40 meq PO DAILY 30 Days Qty: 450 0RF Continued buspirone 5 mg tablet 5 mg PO BID PRN (Reason: Anxiety) venlafaxine 75 mg tablet 75 mg PO BID Rx Instructions: take with food (DME) Saline Sensitive Eyes Drops MISCELLANEOUS Rx Instructions: 2 drops daily as needed Debrox 6.5 % Drops 5 drp OTIC (EAR) DAILY PRN (Reason: NEEDED) Saline Mist 0.65 % aerosol,spray 2 spray NA DIRECTED PRN (Reason: Congestion) Layla Aerosphere 160-9-4.8 mcg/actuation HFA aerosol inhaler 2 inh INHALATION AMHS aspirin 81 mg Tablet,Delayed Release (Dr/Ec) 81 mg PO QAM fluticasone propionate 50 mcg/actuation [place],Suspension 2 spray INTRANASAL DAILY PRN (Reason: Congestion) Hold Instructions: Resume on 11/06/24. metoprolol succinate 50 mg tablet extended release 24 hr 50 mg PO HS ipratropium-albuterol 0.5 mg-3 mg(2.5 mg base)/3 mL Solution For Nebulization 3 ml NEB Q2H PRN (Reason: shortness of breath or wheezing) Qty: 180 0RF sodium chloride 3 % Solution For Nebulization 3 ml INHALATION Q6H PRN (Reason: thickened secretions) 30 Days Qty: 120 0RF albuterol sulfate 90 mcg/actuation HFA aerosol inhaler 2 puff INHALATION Q2H PRN (Reason: Shortness Of Breath) Qty: 0 0RF levothyroxine 75 mcg tablet 75 mcg PO DAILYBB atorvastatin 40 mg Tablet 40 mg PO QAM Qty: 30 0RF clopidogrel 75 mg Tablet 75 mg PO QAM Qty: 30 0RF lidocaine 4 % Adhesive Patch,Medicated 1 patch TOPICAL DAILY PRN (Reason: Pain) Rx Instructions: ON FOR 12 HR. THEN REMOVE metoprolol succinate 50 mg Tablet Extended Release 24 Hr 75 mg PO QAM fexofenadine 180 mg Tablet 180 mg PO DAILY PRN (Reason: Allergy Symptoms) cyanocobalamin (vitamin B-12) [Vitamin B-12] 500 mcg Tablet 500 mcg PO DAILY baclofen 10 mg Tablet 10 mg PO BID fluocinolone 0.01 % Oil 1 applic TOPICAL DAILY PRN (Reason: ITCHY EARS) acetaminophen 160 mg/5 mL (5 mL) Solution 650 mg PO Q6H PRN (Reason: pain/fever) isosorbide mononitrate 30 mg Tablet Extended Release 24 Hr 30 mg PO QAM Qty: 30 0RF Changed bumetanide 1 mg tablet 1 mg PO DAILY 30 Days Qty: 30 0RF Rx Instructions: If tracheal secretions thicken significantly causing difficulty clearing, hold dose one time then resume at normal interval Discharge Orders: Discharge Order (Routine); Ordered 11/04/24 Ordered By: John Londono Admission Data Admit Date/Time: 10/31/24 23:44 Attending Provider: John Londono Admit Provider: Maurisio Zaidi Primary Care Provider: Paola Wilson Other Providers: [place]; Maurisio Zaidi; Falguni Matthew; Con De Dios; Kenroy Yang; Gaudencio Bowie; Bonifacio Arenas; David Serrano; Cindy Khalil; Madelyn Staples; Miriam García; Lindsey Hale; Falguni Haji; Thanh Jean-Baptiste; Antione Trujillo; Nurys Rojo; Kathleen Vuong; Tina Lamb; Gerri Dan; Williams Watkins; Arminda Blanco; Hortencia Najera; Yrn Friend; Kojo Lund Other Interventions: Discharge Summary Assessment (RN) Last Done: 11/04/24 11:09 Hospital Stay Data Consultations 10/31/24 22:42 ED Decision to Admit Stat 11/01/24 06:59 Consult Cardiology Routine Diagnostic Imagining Performed 11/01/24 07:59 US abdomen ltd ascites Routine Pending Results Patient Have Any Pending Studies at Discharge: No Discharge Instructions Given to Patient (Per Discharging Provider) You were admitted to [facility] for acute on chronic heart failure with preserved ejection fraction, most likely consequential of inadequate outpatient diuresis from your previous hospitalization With regard to your heart failure with preserved ejection fraction, increasing the frequency of your previously prescribed diuretic therapy to daily as opposed to every other day has significantly improved your symptomatology without excessive diuresis. There is still concern with regard to the thickening of your pulmonary secretions, for which it appears your deputy court has provided Mucomyst, and additional as needed inhaler therapies. Thank you for choosing [facility] as your healthcare provider. Total Time Total Time Spent Total Time Spent (In Minutes): I personally spent 90 minutes in today's discharge including review of the patient's chart, discussion of the patient's plan of care during her hospitalization and after discharge with both the patient and her daughter who was at bedside, my physical exam, and coordination with specialists who were consulted during the patient's hospitalization Coding Level of Care Code 59244 INP/OBS DISCH >30 MIN Diagnoses Acute on chronic heart failure with preserved ejection fraction I50.33
== END 2024-11-04 14:15 | disposition home or self-care (01) | DRG 291 ==
LOC: ED 21:09 → SUATTDRO 23:44 → 2S 23:44

== ENCOUNTER 2024-11-12 19:45 | Inpatient (IN) ==
--- NOTE | 2024-11-12 20:00 | Emergency Department Note ---
Impression & Plan Acute on chronic respiratory failure with hypoxia, Shortness of breath, Weakness ED Provider Note NAME: BHAVNA CAT AGE: 69 SEX: F : 1955 ARRIVES VIA: Ambulance INFORMANT: Patient ED PROVIDER(S): Dennis Olea DO CHIEF COMPLAINT: Shortness of breath, weakness, trouble getting around HPI: Patient is a 69-year-old female who presents to the ER with a past medical history of CHF, CAD, hypertension and heart failure for weakness. She notes that she was discharged from . Since then she has felt very weak and rundown. Shortness of breath has been constant maybe slightly worse. Denies any chest pain. She admits to chronic back pain. No dysuria, urgency or frequency. No other exacerbating or remitting factors. EMS provided additional history and notes that they had to increase her oxygen to nonrebreather as she was 87% on her chronic 3 to 4 L nasal cannula. ADDITIONAL HISTORY OBTAINED: Per HPI Chronic Medical/Social Conditions Affecting Care: Per HPI PAST MEDICAL HISTORY:See Below PAST SURGICAL HISTORY:See Below FAMILY HISTORY:See Below SOCIAL HISTORY:See Below HOME MEDICATIONS:See Below ALLERGIES:See Below VITALS:See Below PHYSICAL EXAMINATION: GENERAL: Sitting up in bed, alert, chronically ill-appearing, disheveled EYE EXAM: normal conjunctiva. OROPHARYNX:mucous membranes are moist NECK: supple, trach present LUNGS: Clear to auscultation. Normal chest wall mechanics HEART: no murmurs, S1 normal and S2 normal ABDOMEN: abdomen soft, non-tender, normo-active bowel sounds, no masses, no rebound or guarding. BACK: Back is symmetrical on inspection and there is no deformity, no midline tenderness, no CVA tenderness. SKIN: no rashes and no bruising UPPER EXTREMITIES: upper extremities are grossly normal. LOWER EXTREMITIES: No pitting edema. NEURO EXAM: Normal sensorium, cranial nerves II-XII grossly intact, normal speech, no gross weakness of arms, no gross weakness of legs. MEDICAL DECISION MAKING: Patient is a 69-year-old female who presents ER for the above-stated complaint. IV was established and blood work was obtained. Labs showed leukocytosis of 13.6 thousand. Mild anemia. BMP along with LFTs bilirubin was unremarkable. Troponin was elevated at 17 but consistent with previous. Lipase was reassuring. COVID flu and RSV were pending upon admission. Chest x-ray without any focal infiltrates. Patient was given an hour-long neb treatments in combination with steroids. She remained on 8 L via trach collar. She was updated bedside and felt uncomfortable going home consequently discussed case with the hospitalist for further evaluation management treatment. Consults/Care Managements Discussions: Per MDM Triage Nursing notes reviewed. Limited review of prior medical records performed Vital Signs: reviewed and remarkable for no significant abnormalities Differential diagnosis: Differential diagnoses includes but is not limited to pneumonia, bronchitis, COPD/Asthma exacerbation, pneumothorax, pulmonary embolism, congestive heart failure, acute coronary syndrome ER treatment provided: See below Diagnostics interpreted by me include EKG and cardiac monitoring as listed below: -Cardiac Monitoring: An order was placed for continuous cardiac monitoring. The monitor shows a rate of 101 with sinus rhythm. -ECG: Sinus tachycardia rate of 105 Normal axis No PVCs QTc 454 -Laboratory studies:Interpreted by me as stated above in MDM and shown below. Imaging studies: Xrays: As interpreted by me: Portable AP upright 1 view of the chest shows no focal trait CTs show: none Procedures:none Critical Care: None Past Med/Surg History Problem List (Updated 11/12/24 @ 22:46 by Dennis Olea DO) Weakness (Acute) Shortness of breath (Acute) Diuretic-induced hypokalemia Acute on chronic heart failure with preserved ejection fraction Labile hypertension Sinus tachycardia Heart failure, diastolic, with acute decompensation ASCVD (arteriosclerotic cardiovascular disease) CHF (congestive heart failure) (Acute) Acute on chronic respiratory failure with hypoxia (Acute) CHF exacerbation Chest pain, rule out acute myocardial infarction CAD (coronary artery disease) (Chronic) 2007 - LAD stent 2016 - LITTLE to mid LAD Hypertension (Chronic) Chronic hypoxic respiratory failure, on home oxygen therapy (Chronic) Hypothyroidism (Chronic) CAD (coronary artery disease) (Chronic) Peripheral arterial disease (Chronic) Subclavian artery stenosis, right (Chronic) Tracheostomy dependent (Chronic) Carotid stenosis (Chronic) Hyponatremia (Chronic) Medical History 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 MONTENEGRO 2016 - ABN STRESS TEST - [facility] - NO STENTS/ANGIOPLASTY History of tonsillectomy and adenoidectomy Family History Daughter Family history of reaction to anesthesia SLOW TO WAKE Father Family hx of colon cancer Other Colon cancer No pertinent family history Social History Smoking Status: Former smoker Tobacco Type: Cigarettes Cigarettes Per Day: 1-2; Second Hand Exposure: No; Do You Dip or Chew Tobacco: No; Hx Alcohol Use: No Hx Substance Use: No Preferred Language: Tajik Communication Ability: Effective [employer] Administrator Required: No Beliefs That Will Affect Care: None marital status: Current Living Situation: Alone Current Living Situation Comment: norma visits daily current occupational status: retired Feels Safe at Home: Yes Assistive Devices: Nebulizer and Oxygen - at Night Allergies Allergies Allergy/AdvReac Type Severity Reaction Status Date / Time bee venom protein (honey bee) Allergy Severe Anaphylaxis Verified 10/19/24 22:43 latex Allergy Intermediate Rash Verified 10/19/24 22:43 oxycodone [From Percocet] Allergy Intermediate PER Verified 10/19/24 22:43 GMG--GETS LOOPY. Home Meds Home Medications Medication Instructions Recorded Confirmed soft lens rinse,store solution 03/01/19 10/20/24 (Saline Sensitive Eyes drops) buspirone 5 mg tablet 5 mg PO BID Anxiety 10/31/19 11/12/24 venlafaxine 75 mg tablet 75 mg PO BID 10/31/19 11/12/24 aspirin 81 mg tablet,delayed 81 mg PO QAM 01/23/21 11/12/24 release sodium chloride 0.65 % nasal spray 2 spray NA DIRECTED PRN 03/24/21 11/12/24 aerosol (Saline Mist) Congestion budesonide 160 mcg-glycopyr 9 2 inh inhalation AMHS 12/17/22 11/12/24 mcg-formot 4.8 mcg/actuation HFA inhaler (Breztri Aerosphere) metoprolol succinate 50 mg 50 mg PO HS 02/18/23 11/12/24 tablet,extended release 24 hr levothyroxine 75 mcg tablet 75 mcg PO DAILYBB 07/12/24 11/12/24 acetaminophen 160 mg/5 mL (5 mL) 650 mg PO Q6H PRN pain/fever 10/13/24 11/12/24 oral solution baclofen 10 mg tablet 0 mg PO BID 10/13/24 11/12/24 cyanocobalamin (vitamin B-12) 500 500 mcg PO DAILY 10/13/24 11/12/24 mcg tablet (Vitamin B-12) lidocaine 4 % topical patch 1 patch topical DAILY Pain 10/13/24 11/12/24 metoprolol succinate 50 mg 75 mg PO QAM 10/13/24 11/12/24 tablet,extended release 24 hr acetylcysteine 100 mg/mL (10 %) 4 ml inhalation AMHS 11/12/24 11/12/24 solution atorvastatin 40 mg tablet 40 mg PO HS 11/12/24 11/12/24 ipratropium 20 mcg-albuterol 100 2 puff inhalation Q6H PRN Wheezing 11/12/24 11/12/24 mcg/actuation mist for inhalation (Combivent Respimat) Previous Rx's Medication Instructions Recorded clopidogrel 75 mg tablet 75 mg PO QAM #30 tabs 07/14/24 isosorbide mononitrate 30 mg 30 mg PO QAM #30 tabs 10/16/24 tablet,extended release 24 hr ipratropium 0.5 mg-albuterol 3 mg 3 ml NEB Q2H PRN shortness of 10/22/24 (2.5 mg base)/3 mL nebulization breath or wheezing #180 mL soln sodium chloride 3 % for 3 ml inhalation Q6H PRN thickened 10/22/24 nebulization secretions 30 days #120 mL bumetanide 1 mg tablet 1 mg PO DAILY 30 days #30 tabs 11/03/24 potassium chloride 40 mEq/15 mL 40 meq (15 mL) PO DAILY 30 days 11/04/24 oral liquid #450 mL Results & Data (ED) Vital Signs Vital Signs - 24 hr 11/12/24 19:47 11/12/24 19:47 11/12/24 19:47 Pulse Rate 102 H Pulse Rate [Finger] Respiratory Rate 30 H Respiratory Effort / Characteristics Spontaneous Labored Spontaneous Labored Respiratory Depth Deep Respiratory Pattern Rapid/Deep Regular Blood Pressure 129/63 Blood Pressure [Left Arm] Blood Pressure Mean 85 Blood Pressure Mean [Left Arm] Pulse Oximetry 95 95 Oxygen Delivery Method Room Air Trach Collar Oxygen Flow Rate 10 Fraction of Inspired Oxygen Sepsis Recent Fever Within 48 Hours No Sepsis New/Unexplained Change in Mental Status No Sepsis Action Taken by Nursing Physician Notified 11/12/24 19:47 11/12/24 19:54 11/12/24 20:41 Pulse Rate 102 H Pulse Rate [Finger] 94 H Respiratory Rate 36 H Respiratory Effort / Characteristics Non-Labored Spontaneous Respiratory Depth Respiratory Pattern Blood Pressure Blood Pressure [Left Arm] Blood Pressure Mean Blood Pressure Mean [Left Arm] Pulse Oximetry 95 96 Oxygen Delivery Method Trach Collar Trach Collar Oxygen Flow Rate 10 8 Fraction of Inspired Oxygen 35 Sepsis Recent Fever Within 48 Hours Sepsis New/Unexplained Change in Mental Status Sepsis Action Taken by Nursing 11/12/24 21:00 Pulse Rate Pulse Rate [Finger] 98 H Respiratory Rate 26 H Respiratory Effort / Characteristics Non-Labored Respiratory Depth Normal Respiratory Pattern Blood Pressure Blood Pressure [Left Arm] 108/51 L Blood Pressure Mean Blood Pressure Mean [Left Arm] 70 Pulse Oximetry 99 Oxygen Delivery Method Oxygen Flow Rate Fraction of Inspired Oxygen Sepsis Recent Fever Within 48 Hours Sepsis New/Unexplained Change in Mental Status Sepsis Action Taken by Nursing Laboratory Data 11/12/24 20:00 11/12/24 20:00 Lab Results 11/12/24 Range/Units 20:00 WBC 13.68 H (4.8-10.8) K/ul RBC 4.10 L (4.20-5.40) M/uL Hgb 11.9 L (12.0-16.0) g/dl Hct 37.2 (37.0-47.0) % MCV 90.7 (80.0-100.0) fL MCH 29.0 (25.0-34.0) pg MCHC 32.0 (32.0-36.0) g/dL RDW Std Deviation 44.7 (36.4-46.3) fL RDW Coeff of Jair 13.6 (11.5-14.5) % Plt Count 293 (130-400) K/uL MPV 10.0 (9.4-12.4) fL Immature Gran % (Auto) 0.3 % Neut % (Auto) 87.0 % Lymph % (Auto) 5.9 % Freestone % (Auto) 6.4 % Eos % (Auto) 0.1 % Baso % (Auto) 0.3 % Neut # (Auto) 11.91 H (1.40-6.50) K/uL Lymph # (Auto) 0.81 L (1.20-3.40) K/uL Freestone # (Auto) 0.87 H (0.11-0.59) K/uL Eos # (Auto) 0.01 (0.00-0.50) K/uL Baso # (Auto) 0.04 (0.00-0.20) K/uL Immature Gran # (Auto) 0.04 (0.01-0.20) K/uL Sodium 137 (136-145) mmol/L Potassium 4.0 (3.5-5.1) mmol/L Chloride 93 L (98-107) mmol/L Carbon Dioxide 30 (21-32) mmol/L Anion Gap 14 H (3-11) BUN 23 (6-23) mg/dl Creatinine 0.85 (0.6-1.2) mg/dl Est Cr Clr Drug Dosing 39.6 ml/min eGFR 73.20 BUN/Creatinine Ratio 27.1 H (10-20) Glucose 97 (70-99(Fasting)) mg/dl Calcium 9.7 (8.6-10.3) mg/dl Total Bilirubin 0.7 (0.2-1.0) mg/dl AST 25 (13-39) U/L ALT 14 (7-52) U/L Alkaline Phosphatase 78 (34-104) U/L Troponin I High Sens 17.4 H (0-14) pg/ml Total Protein 8.2 (6.0-8.3) gm/dl Albumin 3.7 (3.4-5.0) gm/dl Globulin 4.5 H (2.5-4.0) gm/dl Albumin/Globulin Ratio 0.8 L (0.9-2) Lipase 10 L (11-82) U/L Administered Medications Discontinued Medications Albuterol (Albut/Ipratrop 3mg/0.5mg Neb 3 Ml Vial) 9 ml NEB NOW STA; Protocol Stop: 11/12/24 19:55 Last Admin: 11/12/24 20:38 Dose: 9 ml Documented By: TMP Acetaminophen (Ofirmev) 1,000 mg in 100 mls @ 400 mls/hr IV NOW STA Stop: 11/12/24 21:56 Last Infusion: 11/12/24 22:33 Dose: Infused Documented By: Admin: 11/12/24 21:57 Dose: 400 mls/hr Documented By: HANH Lorazepam (Lorazepam 1 Mg/1 Ml Syr Ed Inj Use) 1 mg IV ONE STA Stop: 11/12/24 21:43 Last Admin: 11/12/24 21:57 Dose: 1 mg Documented By: HANH Methylprednisolone (Methylprednisolone 125 Mg/2 Ml Vial) 40 mg IV NOW STA Stop: 11/12/24 19:55 Last Admin: 11/12/24 20:09 Dose: 40 mg Documented By: HANH Imaging Data Radiologist's Impression: Chest X-Ray 11/12/24 19:47 Single frontal view of the chest Comparison made to prior exam dated 10/31/2024 Impression No acute pulmonary pathology. Tracheostomy tube with the tip above the bekah. Diffuse changes COPD with bibasilar fibrotic change stable since prior study. Electronically signed by Dennis Hilton 11-12-2024 8:25 PM Discharge Plan Visit Data Chief Complaint: Shortness of Breath/Dyspnea Stated Complaint: SHORTNESS OF BREATH, WEAKNESS, FERRER, TRACH ED Provider: Dennis Olea Discharge Problem: Acute on chronic respiratory failure with hypoxia, Shortness of breath, Weakness Condition: Fair Forms Stand Alone Forms: My [facility] Prescriptions Prescriptions: No Action buspirone 5 mg tablet 5 mg PO BID venlafaxine 75 mg tablet 75 mg PO BID Rx Instructions: take with food (DME) Saline Sensitive Eyes Drops MISCELLANEOUS Rx Instructions: 2 drops daily as needed Saline Mist 0.65 % aerosol,spray 2 spray NA DIRECTED PRN (Reason: Congestion) Breztri Aerosphere 160-9-4.8 mcg/actuation HFA aerosol inhaler 2 inh INHALATION AMHS aspirin 81 mg Tablet,Delayed Release (Dr/Ec) 81 mg PO QAM metoprolol succinate 50 mg tablet extended release 24 hr 50 mg PO HS ipratropium-albuterol 0.5 mg-3 mg(2.5 mg base)/3 mL Solution For Nebulization 3 ml NEB Q2H PRN (Reason: shortness of breath or wheezing) Qty: 180 0RF sodium chloride 3 % Solution For Nebulization 3 ml INHALATION Q6H PRN (Reason: thickened secretions) 30 Days Qty: 120 0RF levothyroxine 75 mcg tablet 75 mcg PO DAILYBB clopidogrel 75 mg Tablet 75 mg PO QAM Qty: 30 0RF lidocaine 4 % Adhesive Patch,Medicated 1 patch TOPICAL DAILY Rx Instructions: ON BACK FOR 12 HR. THEN REMOVE metoprolol succinate 50 mg Tablet Extended Release 24 Hr 75 mg PO QAM cyanocobalamin (vitamin B-12) [Vitamin B-12] 500 mcg Tablet 500 mcg PO DAILY baclofen 10 mg Tablet 0 mg PO BID Patient Comments: PRESCRIBED 10MG PO BID; PT TAKES 10MG DAILY PRN acetaminophen 160 mg/5 mL (5 mL) Solution 650 mg PO Q6H PRN (Reason: pain/fever) Patient Comments: PT HAS HARD TIME SWALLOWING PILLS isosorbide mononitrate 30 mg Tablet Extended Release 24 Hr 30 mg PO QAM Qty: 30 0RF bumetanide 1 mg tablet 1 mg PO DAILY 30 Days Qty: 30 0RF Rx Instructions: If tracheal secretions thicken significantly causing difficulty clearing, hold dose one time then resume at normal interval potassium chloride 40 mEq/15 mL liquid 40 meq PO DAILY 30 Days Qty: 450 0RF acetylcysteine 100 mg/mL (10 %) solution 4 ml inhalation AMHS Combivent Respimat 20-100 mcg/actuation mist 2 puff INHALATION Q6H PRN (Reason: Wheezing) Rx Instructions: WITH SPACER atorvastatin 40 mg tablet 40 mg PO Referrals Referrals: Paola Wilson MD [Primary Care Provider] -
[2024-11-12 20:23] LABS: Hematocrit (blood only) 37.2 % (37.0-47.0); Hemoglobin 11.9 g/dl (12.0-16.0); Immature Granulocytes # (auto) 0.04 K/uL (0.01-0.20); Immature Granulocytes % (auto) 0.3 %; Mean Corpuscular Hemoglobin 29.0 pg (25.0-34.0); Mean Corpuscular Volume 90.7 fL (80.0-100.0); Platelet Count 293 K/uL (130-400); RDW Standard Deviation 44.7 fL (36.4-46.3); Red Blood Count 4.10 M/uL (4.20-5.40); White Blood Count 13.68 K/ul (4.8-10.8)
--- NOTE | 2024-11-12 20:25 | XRay Report ---
Single frontal view of the chest Comparison made to prior exam dated 10/31/2024 Impression No acute pulmonary pathology. Tracheostomy tube with the tip above the bekah. Diffuse changes COPD with bibasilar fibrotic change stable since prior study. Electronically signed by Dennis Hilton 11-12-2024 8:25 PM
[2024-11-12] MEDS: ALBUT/IPRATROP 3MG/0.5MG NEB 3 ML VIAL NEB STA (20:38)
[2024-11-12 20:41] LABS: Alanine Aminotransferase 14.0 U/L (7-52); Albumin Globulin Ratio 0.8 (0.9-2); Alkaline Phosphatase 78.0 U/L (34-104); Anion Gap 14.0 (3-11); Bilirubin,Total 0.7 mg/dl (0.2-1.0); Blood Urea Nitrogen 23.0 mg/dl (6-23); Calcium 9.7 mg/dl (8.6-10.3); Carbon Dioxide 30.0 mmol/L (21-32); Chloride 93.0 mmol/L (98-107); Creatinine Clr Calc Pharmacy 39.6 ml/min; Globulin 4.5 gm/dl (2.5-4.0); Glucose 97.0 mg/dl (70-99(Fasting)); Lipase 10.0 U/L (11-82); Potassium 4.0 mmol/L (3.5-5.1); Sodium 137.0 mmol/L (136-145); Total Protein 8.2 gm/dl (6.0-8.3)
[2024-11-12] MEDS: ACETAMINOPHEN 1,000 MG/100 ML VIAL IV STA (21:57)
[2024-11-12] MEDS: LORazepam 1 MG/1 ML SYR ED Inj Use IV STA (21:57)
[2024-11-12 22:58] LABS: Influenza A virus by PCR Negative (Neg); Influenza B virus by PCR Negative (Neg); SARS CoV2 RNA(COVID-19) Ceph NEGATIVE (Negative)
--- NOTE | 2024-11-12 23:21 | History & Physical Report ---
Date of Service November 12, 2024 Assessment & Plan (1) Weakness: (2) Shortness of breath: (3) CHF (congestive heart failure): (4) CAD (coronary artery disease): (5) Hypothyroidism: Plan 69yo female presenting with several days of progressive weakness, fatigue, poor appetite and shortness of breath. Increased oxygen demand. Viral panel negative. Procalcitonin negative. No infiltrates or edema noted on CXR. #Generalized weakness - etiology unclear. No obvious infection -Check UA and culture if indicated -PT/OT #Shortness of breath/COPD/Tracheostomy - diminished breath sounds. Possible COPD exacerbation -Solumedrol 20mg IV BID -Continue Fluticasone, -Duonebs PRN, Albuterol PRN -Mucomyst nebs, hypertonic nebs -Suction PRN -Continue Umeclidinium/Vilanterol -Tracheostomy care #CAD - chronic elevation of troponin -Repeat troponin in AM -Continue ASA and Plavix -Continue Atorvastatin -Continue Metoprolol #CHF - appears to be compensated -Continue Bumex 1mg po daily -Continue Isosorbide mononitrate #Anxiety -Buspirone 5mg po BID -Continue Venlafaxine #Hypothyroidism -Continue Synthroid History of Present Illness Chief Complaint: fatigue, SOB Primary Care Provider: Paola Wilson MD Vicki Hardy is a 69-year-old female with history of CAD, hypertension, chronic hypoxic respiratory failure, hypothyroidism, peripheral arterial disease, tracheostomy in place presenting with generalized fatigue and shortness of breath. Patient was recently admitted to [facility] from 10/31 - 11/05 after presenting with worsening shortness of breath and increased oxygen requirement. She was found to have acute on chronic heart failure with preserved ejection fraction. She was diuresed and ultimately discharged home. New medications include Bumex 1 mg daily and potassium supplementation. Patient reports that over the last few days she has had increased weakness, fatigue, poor appetite and decreased oral intake as well as shortness of breath. Today patient has been complaining of a headache. Also with ambulatory dysfunctionunable to get around the house. Patient's daughter changed her tracheostomy today. Reports that the trach was clear, no secretions. Oxygen requirement has been about the same. Trach collar 8L/min in the ER - adequate oxygenation ER Course: Solumedrol Albuterol Tylenol Ativan Allergies Allergy/AdvReac Type Severity Reaction Status Date / Time bee venom protein (honey bee) Allergy Severe Anaphylaxis Verified 10/19/24 22:43 latex Allergy Intermediate Rash Verified 10/19/24 22:43 oxycodone [From Percocet] Allergy Intermediate PER Verified 10/19/24 22:43 GMG--GETS LOOPY. Home Medications Medication Instructions Recorded Confirmed Type soft lens rinse,store solution 03/01/19 10/20/24 History (Saline Sensitive Eyes drops) buspirone 5 mg tablet 5 mg PO BID Anxiety 10/31/19 11/12/24 History venlafaxine 75 mg tablet 75 mg PO BID 10/31/19 11/12/24 History aspirin 81 mg tablet,delayed 81 mg PO QAM 01/23/21 11/12/24 History release sodium chloride 0.65 % nasal spray 2 spray NA DIRECTED PRN 03/24/21 11/12/24 History aerosol (Saline Mist) Congestion budesonide 160 mcg-glycopyr 9 2 inh inhalation [facility] 12/17/22 11/12/24 History mcg-formot 4.8 mcg/actuation HFA inhaler (Breztri Aerosphere) metoprolol succinate 50 mg 50 mg PO HS 02/18/23 11/12/24 History tablet,extended release 24 hr levothyroxine 75 mcg tablet 75 mcg PO DAILYBB 07/12/24 11/12/24 History clopidogrel 75 mg tablet 75 mg PO QAM #30 tabs 07/14/24 11/12/24 Rx acetaminophen 160 mg/5 mL (5 mL) 650 mg PO Q6H PRN pain/fever 10/13/24 11/12/24 History oral solution baclofen 10 mg tablet 0 mg PO BID 10/13/24 11/12/24 History cyanocobalamin (vitamin B-12) 500 500 mcg PO DAILY 10/13/24 11/12/24 History mcg tablet (Vitamin B-12) lidocaine 4 % topical patch 1 patch topical DAILY Pain 10/13/24 11/12/24 History metoprolol succinate 50 mg 75 mg PO QAM 10/13/24 11/12/24 History tablet,extended release 24 hr isosorbide mononitrate 30 mg 30 mg PO QAM #30 tabs 10/16/24 11/12/24 Rx tablet,extended release 24 hr ipratropium 0.5 mg-albuterol 3 mg 3 ml NEB Q2H PRN shortness of 10/22/24 11/12/24 Rx (2.5 mg base)/3 mL nebulization breath or wheezing #180 mL soln sodium chloride 3 % for 3 ml inhalation Q6H PRN thickened 10/22/24 11/12/24 Rx nebulization secretions 30 days #120 mL bumetanide 1 mg tablet 1 mg PO DAILY 30 days #30 tabs 11/03/24 11/12/24 Rx potassium chloride 40 mEq/15 mL 40 meq (15 mL) PO DAILY 30 days 11/04/24 11/12/24 Rx oral liquid #450 mL acetylcysteine 100 mg/mL (10 %) 4 ml inhalation AMHS 11/12/24 11/12/24 History solution atorvastatin 40 mg tablet 40 mg PO HS 11/12/24 11/12/24 History ipratropium 20 mcg-albuterol 100 2 puff inhalation Q6H PRN Wheezing 11/12/24 11/12/24 History mcg/actuation mist for inhalation (Combivent Respimat) Past Med/Surg History Problem List Weakness (Acute) Shortness of breath (Acute) Diuretic-induced hypokalemia Acute on chronic heart failure with preserved ejection fraction Labile hypertension Sinus tachycardia Heart failure, diastolic, with acute decompensation ASCVD (arteriosclerotic cardiovascular disease) CHF (congestive heart failure) (Acute) Acute on chronic respiratory failure with hypoxia (Acute) CHF exacerbation Chest pain, rule out acute myocardial infarction CAD (coronary artery disease) (Chronic) 2007 - LAD stent 2016 - LITTLE to mid LAD Hypertension (Chronic) Chronic hypoxic respiratory failure, on home oxygen therapy (Chronic) Hypothyroidism (Chronic) CAD (coronary artery disease) (Chronic) Peripheral arterial disease (Chronic) Subclavian artery stenosis, right (Chronic) Tracheostomy dependent (Chronic) Carotid stenosis (Chronic) Hyponatremia (Chronic) Medical History 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 - 2 STENTS PLACED - FOLLOWS W/ DR. MONTENEGRO 2016 - ABN STRESS TEST [facility] - NO STENTS/ANGIOPLASTY History of tonsillectomy and adenoidectomy Family History Daughter Family history of reaction to anesthesia SLOW TO WAKE Father Family hx of colon cancer Other Colon cancer No pertinent family history Social History Smoking Status: Former smoker Tobacco Type: Cigarettes Cigarettes Per Day: 1-2; Second Hand Exposure: No; Do You Dip or Chew Tobacco: No; Tobacco Cessation Education Requested by Patient: No Hx Alcohol Use: No Hx Substance Use: No Preferred Language: Tongan Communication Ability: Effective Roll Hauler Required: No Beliefs That Will Affect Care: None marital status: Current Living Situation: Alone Current Living Situation Comment: daerendirae visits daily current occupational status: retired Feels Safe at Home: Yes Safety Concerns: Feels Safe At This Time Assistive Devices: Oxygen - Continuous Review of Systems Review of Systems: All systems reviewed & are unremarkable except as noted in HPI & below Physical Exam Physical Exam: General: patient resting comfortably, NAD, non-toxic in appearance, AA&O x 4 Skin: warm, dry, intact, no rashes or lesions HEENT: NC/AT, PERRL, EOMI, anicteric sclera, conjunctiva without injection, external ear normal to inspection and nontender, nares patent, moist mucus membranes, dentition intact, no oropharyngeal lesions, neck supple, trachea midline, no LAD, no thyromegaly, no JVD Heart: +S1/S2, regular, no m/r/g Lungs: diminished breath sounds bilaterally, no rhonchi/wheezes, tracheostomy in place - Size 6 Shiley Abd: +BS, soft, NT/ND, no masses/organomegaly/ascites Ext: warm, 2+ pulses in UE/LE bilaterally, no clubbing/cyanosis or edema Neuro: nonfocal, patient AA&O x 4, speech intact, no facial droop, moving all extremities on command with equal strength 5/5 Results & Data Results & Data Vital Signs (Past 12 Hours) Vital Signs Pulse Pulse Resp BP BP Pulse Ox O2 Del Method 11/12/24 21:00 98 H 26 H 108/51 L 99 11/12/24 20:41 94 H 36 H 96 Trach Collar 11/12/24 19:54 102 H 11/12/24 19:47 95 Trach Collar 11/12/24 19:47 95 Trach Collar 11/12/24 19:47 102 H 30 H 129/63 95 Room Air O2 Flow Rate FiO2 11/12/24 21:00 11/12/24 20:41 8 35 11/12/24 19:54 11/12/24 19:47 10 11/12/24 19:47 10 11/12/24 19:47 Laboratory Results Laboratory Results WBC 13.68 K/ul (4.8-10.8) H 11/12/24 20:00 RBC 4.10 M/uL (4.20-5.40) L 11/12/24 20:00 Hgb 11.9 g/dl (12.0-16.0) L 11/12/24 20:00 Hct 37.2 % (37.0-47.0) 11/12/24 20:00 MCV 90.7 fL (80.0-100.0) 11/12/24 20:00 MCH 29.0 pg (25.0-34.0) 11/12/24 20:00 MCHC 32.0 g/dL (32.0-36.0) 11/12/24 20:00 RDW Std Deviation 44.7 fL (36.4-46.3) 11/12/24 20:00 RDW Coeff of Jair 13.6 % (11.5-14.5) 11/12/24 20:00 Plt Count 293 K/uL (130-400) 11/12/24 20:00 MPV 10.0 fL (9.4-12.4) 11/12/24 20:00 Immature Gran % (Auto) 0.3 % 11/12/24 20:00 Neut % (Auto) 87.0 % 11/12/24 20:00 Lymph % (Auto) 5.9 % 11/12/24 20:00 [place] % (Auto) 6.4 % 11/12/24 20:00 Eos % (Auto) 0.1 % 11/12/24 20:00 Baso % (Auto) 0.3 % 11/12/24 20:00 Neut # (Auto) 11.91 K/uL (1.40-6.50) H 11/12/24 20:00 Lymph # (Auto) 0.81 K/uL (1.20-3.40) L 11/12/24 20:00 [place] # (Auto) 0.87 K/uL (0.11-0.59) H 11/12/24 20:00 Eos # (Auto) 0.01 K/uL (0.00-0.50) 11/12/24 20:00 Baso # (Auto) 0.04 K/uL (0.00-0.20) 11/12/24 20:00 Immature Gran # (Auto) 0.04 K/uL (0.01-0.20) 11/12/24 20:00 Sodium 137 mmol/L (136-145) 11/12/24 20:00 Potassium 4.0 mmol/L (3.5-5.1) 11/12/24 20:00 Chloride 93 mmol/L (98-107) L 11/12/24 20:00 Carbon Dioxide 30 mmol/L (21-32) 11/12/24 20:00 Anion Gap 14 (3-11) H 11/12/24 20:00 BUN 23 mg/dl (6-23) 11/12/24 20:00 Creatinine 0.85 mg/dl (0.6-1.2) 11/12/24 20:00 Est Cr Clr Drug Dosing 39.6 ml/min 11/12/24 20:00 eGFR 73.20 11/12/24 20:00 BUN/Creatinine Ratio 27.1 (10-20) H 11/12/24 20:00 Glucose 97 mg/dl (70-99(Fasting)) 11/12/24 20:00 Calcium 9.7 mg/dl (8.6-10.3) 11/12/24 20:00 Phosphorus 3.2 mg/dl (2.5-4.9) 11/12/24 20:00 Magnesium 1.9 mg/dl (1.7-2.4) 11/12/24 20:00 Total Bilirubin 0.7 mg/dl (0.2-1.0) 11/12/24 20:00 AST 25 U/L (13-39) 11/12/24 20:00 ALT 14 U/L (7-52) 11/12/24 20:00 Alkaline Phosphatase 78 U/L (34-104) 11/12/24 20:00 Troponin I High Sens 17.4 pg/ml (0-14) H 11/12/24 20:00 Total Protein 8.2 gm/dl (6.0-8.3) 11/12/24 20:00 Albumin 3.7 gm/dl (3.4-5.0) 11/12/24 20:00 Globulin 4.5 gm/dl (2.5-4.0) H 11/12/24 20:00 Albumin/Globulin Ratio 0.8 (0.9-2) L 11/12/24 20:00 Lipase 10 U/L (11-82) L 11/12/24 20:00 Procalcitonin 0.05 ng/ml (0-0.5) 11/12/24 20:00 SARS-CoV-2 (PCR) NEGATIVE (Negative) 11/12/24 22:00 Influenza Type A (PCR) Negative (Neg) 11/12/24 22:00 Influenza Type B (PCR) Negative (Neg) 11/12/24 22:00 RSV (RT-PCR) Negative (Neg) 11/12/24 22:00 Impressions Chest X-Ray 11/12/24 19:47 Single frontal view of the chest Comparison made to prior exam dated 10/31/2024 Impression No acute pulmonary pathology. Tracheostomy tube with the tip above the bekah. Diffuse changes COPD with bibasilar fibrotic change stable since prior study. Electronically signed by Dennis Hilton 11-12-2024 8:25 PM PG Care Time/CCT Total # of Minutes Spent Total Time Spent with Patient: Total time spent is greater than 50% in coordination of care (as documented) at patient's floor/unit and/or counseling patient: Coding Level of Care Code 42455 INT INP/OBS CARE 3/75MIN Diagnoses Weakness R53.1 Shortness of breath R06.02 CHF (congestive heart failure) I50.9 Heart failure chronicity: acute on chronic Heart failure type: unspecified CAD (coronary artery disease) I25.10 Hypothyroidism E03.9 (3) CHF (congestive heart failure) Heart failure chronicity: acute on chronic Heart failure type: unspecified Qualified Code(s): I50.9 - Heart failure, unspecified
[2024-11-13] MEDS ORDERED: BACLOFEN 10 MG TAB PO PRN (00:19)
[2024-11-13] MEDS ORDERED: IPRATROPIUM BROMIDE/ALBUTEROL respimat INH INH PRN (00:19)
[2024-11-13] MEDS ORDERED: ONDANSETRON INJ 2 MG/ML 2 ML VIAL IV PRN (00:19)
[2024-11-13] MEDS ORDERED: DOCUSATE SODIUM 100 MG CAP PO PRN (00:19)
[2024-11-13] MEDS ORDERED: SODIUM CHLORIDE 0.65% NA SOLN 45 ML (OCEAN) PRN (00:19)
[2024-11-13] MEDS ORDERED: SODIUM CHLOR 7% 4 ML NEB INH PRN (00:35)
[2024-11-13] MEDS ORDERED: IPRATROPIUM BROMIDE HFA INHALER INH PRN (00:38)
[2024-11-13] MEDS ORDERED: ALBUTEROL HFA 8 GM INHALER INH PRN (00:38)
[2024-11-13 00:40] LABS: Magnesium 1.9 mg/dl (1.7-2.4)
[2024-11-13] MEDS: LEVOTHYROXINE SODIUM 75 MCG TABLET PO SCH (06:20)
[2024-11-13] MEDS: ALBUT/IPRATROP 3MG/0.5MG NEB 3 ML VIAL NEB PRN (07:19)
[2024-11-13] MEDS: ACETYLCYSTEINE 10% INHAL SOLN 4 ML **DISPENSED BY RESP. INH SCH (07:19)
[2024-11-13] MEDS: FLUTICASONE FUROATE 200MCG 14 PUFFS/INHALER INH SCH (08:50)
[2024-11-13] MEDS: CLOPIDOGREL BISULFATE 75 MG TAB PO SCH (08:50)
[2024-11-13] MEDS: BUMETANIDE 1 MG TAB PO SCH (08:50)
[2024-11-13] MEDS: VENLAFAXINE HCL 37.5 MG TAB PO SCH (08:50)
[2024-11-13] MEDS: ISOSORBIDE MONO EXTENDED REL 30 MG TABCR PO SCH (08:50)
[2024-11-13] MEDS: ASPIRIN 81 MG ECTAB PO SCH (08:50)
[2024-11-13] MEDS: busPIRone 5 MG TAB PO SCH (08:50)
[2024-11-13] MEDS: UMECLIDINIUM/VILANTEROL 62.5/25MCG 7 PUFFS/INHALER INH SCH (08:51)
[2024-11-13] MEDS: METOPROLOL SUCC 25MG EXT REL TAB PO SCH (08:51)
[2024-11-13] MEDS: POTASSIUM CHLORIDE 20 MEQ/15 ML UDC PO SCH (08:51)
[2024-11-13] MEDS: LIDOCAINE 5% 1 PATCH TD SCH (08:55)
[2024-11-13] MEDS ORDERED: NON-FORMULARY MEDICATION (Budesonide-Glycopyr-Formoterol [Breztri Aerosphere] 160-9-4.8 mc INH SCH (09:00)
[2024-11-13 10:17] LABS: Hematocrit (blood only) 34.5 % (37.0-47.0); Hemoglobin 11.6 g/dl (12.0-16.0); Mean Corpuscular Hemoglobin 30.9 pg (25.0-34.0); Mean Corpuscular Volume 91.8 fL (80.0-100.0); Platelet Count 277 K/uL (130-400); RDW Standard Deviation 45.0 fL (36.4-46.3); Red Blood Count 3.76 M/uL (4.20-5.40); White Blood Count 8.72 K/ul (4.8-10.8)
[2024-11-13 10:27] LABS: Anion Gap 9.0 (3-11); Blood Urea Nitrogen 23.0 mg/dl (6-23); Calcium 9.4 mg/dl (8.6-10.3); Carbon Dioxide 31.0 mmol/L (21-32); Chloride 95.0 mmol/L (98-107); Creatinine Clr Calc Pharmacy 51.2 ml/min; Glucose 102.0 mg/dl (70-99(Fasting)); Potassium 4.2 mmol/L (3.5-5.1); Sodium 135.0 mmol/L (136-145)
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
--- NOTE | 2024-11-13 12:38 | Electrocardiogram Report ---
Test Reason : Blood Pressure : */* mmHG Vent. Rate : 105 BPM Atrial Rate : 105 BPM P-R Int : 140 ms QRS Dur : 80 ms QT Int : 344 ms P-R-T Axes : 63 57 69 degrees QTcB Int : 454 ms Sinus tachycardia Nonspecific ST and T wave abnormality Abnormal ECG When compared with ECG of 02-Nov-2024 15:35, ST no longer elevated in Inferior leads ST now depressed in Lateral leads Confirmed by Clinton Epstein ([id number]) on 11/13/2024 12:38:04 PM Referred By: REFERRED SELF Confirmed By: Clinton Epstein
[2024-11-13] MEDS: ACETAMINOPHEN 1,000 MG/100 ML VIAL IV STA (15:10)
[2024-11-13 17:13] LABS: Chlamydia pneumoniae PCR Not Detected (NotDetected); Coronavirus 229E PCR Not Detected (NotDetected); Coronavirus CoV-2 (COVID19)PCR Not Detected (NotDetected); Coronavirus HKU1 PCR Not Detected (NotDetected); Coronavirus NL63 PCR Not Detected (NotDetected); Coronavirus OC43PCR Not Detected (NotDetected); Human Metapneumovirus PCR Not Detected (NotDetected); Parainfluenza Virus 1 PCR Not Detected (NotDetected); Parainfluenza Virus 2 PCR Not Detected (NotDetected); Parainfluenza Virus 3 PCR Not Detected (NotDetected); Parainfluenza Virus 4 PCR Not Detected (NotDetected); Respiratory Syncytial VirusPCR Not Detected (NotDetected); Rhinovirus/Enterovirus PCR Not Detected (NotDetected)
[2024-11-13] MEDS: FLUCONAZOLE 200 MG/100 ML BAG IV SCH (17:15)
[2024-11-13] MEDS: ISOSORBIDE MONONITRATE 20 MG TAB PO SCH (17:15)
[2024-11-13] MEDS: OPTIRAY 320 100ml IV ONE (18:00)
--- NOTE | 2024-11-13 19:25 | Hospitalist Progress Note ---
Date of Service November 13, 2024 Assessment & Plan (1) Weakness: (2) Dysphagia: (3) Thrush: (4) CHF (congestive heart failure): Plan 69yo female with a history of CAD s/p PCI, HTN, COPD, laryngeal cancer s/p tracheostomy with chronic respiratory failure on 4 L trach collar, hypoth yroidism, PAD with right subclavian artery stenosis and EZIO, here with generalized weakness, poor appetite, malaise. Initially thought to have COPD exacerbation but does not. Respiratory BioFire negative, procalcitonin negative, CXR negative. Is requiring slightly more oxygen than usual. Also complains of significant dysphagia and is a known chronic aspirator. #Generalized weakness - etiology unclear. No obvious infection except UA still pending although not having any urinary symptoms. -Check UA and culture if indicated -PT/OT ordered - Dietitian, speech therapy ordered-added boost shakes and changed from heart healthy to regular so that she can be offered more choices of food - No IV fluids for now despite poor p.o. intake as she has heart failure #Chronic aspiration/oral thrush-secondary to tracheostomy and previous radiation to the neck. Video swallow study in 07/2024 with aspiration of all substances- permissive aspiration decided at that time. Now with oral thrush - Start fluconazole 20 mg IV once daily - Change medications from extended release versions to immediate release that can be crushed and given with pudding - Speech therapy ordered - Changed to easy to chew diet which was previously recommended #Shortness of breath/COPD/Tracheostomy - diminished breath sounds. Possible COPD exacerbation-treated with IV steroids no improvement - Discontinue Solumedrol 20mg IV BID -Continue Fluticasone, umeclidinium/vilanterol, Duonebs PRN, Albuterol PRN, Mucomyst nebs, hypertonic nebs -Suction PRN and tracheostomy care -Consult pulmonology to see if there is any improvements that can be made with her tracheostomy to improve shortness of breath - Continue supplemental O2 and wean down as tolerated - Check CT soft tissue of the neck to assess tracheostomy #CAD - chronic elevation of troponin, repeat troponin down to 15 from 17. No chest pain or changes on ECG -Continue ASA and Plavix -Continue Atorvastatin and metoprolol # Chronic HFpEF- appears to be compensated -Continue Bumex 1mg po daily -Continue Isosorbide mononitrate-changed to short acting that can be crushed #Anxiety -Buspirone 5mg po BID -Continue Venlafaxine #Hypothyroidism-recent TSH normal at 0.8 -Continue Synthroid DVT prophylaxis-add SCDs Disposition-continued stay in telemetry Admission and Anticipated Discharge Date Admission Date: November 12, 2024 Subjective Patient reports ongoing generalized weakness and is afraid to eat because she feels so weak that she might choke. She has a history of known aspiration. Her daughter at the bedside is concerned that her trach is having necrosis around as she was told by ENT this at [facility] in the recent past. She wonders if this is causing her weakness. The patient has not had any fevers or chills at home. She has not eaten much in the last 3 days. Denies nausea or abdominal pain. She is moving her bowels regularly without diarrhea. Daughter also wonders if she has a UTI even though she has no urinary symptoms. Daughter is also requesting that the patient be given boost as she thinks she will drink this even if she is not eating food Telemetry with normal sinus rhythm, PACs, rates in the 80s Physical Exam Constitutional: + ill appearing, + frail appearing and + underweight ENMT: Mouth: + tongue abnormality (White exudate on tongue) Neck: + tracheostomy present; + abnormal visua l inspection Respiratory: normal respiratory effort and + cough Auscultation: + rhonchi (Bilateral); no rales and no wheezes Cardiovascular: RRR, no murmur, no edema Gastrointestinal (Abdomen): normal bowel sounds, soft, nontender, no hepatosplenomegaly Neurologic: PERRL, EOMI, accommodation nl, no face palsy, no dysarthria Psychiatric: A+Ox3, euthymic affect Results & Data Results & Data Vital Signs (Past 12 Hours) Vital Signs Temp Pulse Pulse Resp BP Pulse Ox O2 Del Method 11/13/24 18:00 97 H 11/13/24 15:39 36.8 C 97 H 18 137/69 98 Trach Collar 11/13/24 11:32 36.6 C 92 H 18 170/74 H 99 Trach Collar 11/13/24 08:00 81 11/13/24 08:00 Trach Collar 11/13/24 07:35 36.5 C 85 16 119/68 94 Trach Collar 11/13/24 07:19 87 18 98 Trach Collar O2 Flow Rate FiO2 11/13/24 18:00 11/13/24 15:39 11/13/24 11:32 11/13/24 08:00 11/13/24 08:00 8 28 11/13/24 07:35 11/13/24 07:19 8 28 Laboratory Results CBC, BMP, troponin, respiratory bio fire reviewed PG Care Time/CCT Total # of Minutes Spent Total Time Spent with Patient: Total time spent is greater than 50% in coordination of care (as documented) at patient's floor/unit and/or counseling patient: Coding Level of Care Code 49521 SUB INP/OBS CARE 3/50MIN Diagnoses Weakness R53.1 Dysphagia R13.10 Thrush B37.0 CHF (congestive heart failure) I50.9 Heart failure chronicity: acute on chronic Heart failure type: unspecified (4) CHF (congestive heart failure) Heart failure chronicity: acute on chronic Heart failure type: unspecified Qualified Code(s): I50.9 - Heart failure, unspecified
--- NOTE | 2024-11-13 19:31 | CT Scan Report ---
Clinical history: Assess tracheostomy placement Technique: Axial computed tomography images were obtained of the neck after the administration of intravenous contrast Comparison is made to the neck CTA dated 07/12/2024 Findings: A tracheostomy catheter is again seen in expected position, with its tip at the level of T2. Again seen is narrowing of the supraglottic airway with partially calcified soft tissue attenuation material The salivary glands appear unremarkable. No adenopathy is seen. No tonsillar enlargement is seen. The thyroid gland is diminutive and heterogeneous. There is emphysema involving the lung apices. There is multilevel degenerative disc disease and osteoarthritis of the cervical spine. Extensive atherosclerotic plaque is again seen. The visualized paranasal sinuses and mastoid air cells appear clear. The orbits appear normal Impression: 1. Tracheostomy catheter with its tip at the level of T2 2. No definite change in narrowing of the supraglottic airway, which could be due to neoplasm or scarring such as from prior trauma or treated malignancy. Clinical correlation is recommended 3. Emphysema Electronically signed by Nile Romo 11-13-2024 7:31 PM
[2024-11-13] MEDS: ATORVASTATIN 40 MG TAB PO SCH (20:58)
[2024-11-13] MEDS: METOPROLOL TARTRATE 25 MG TAB PO SCH (20:58)
[2024-11-13] MEDS ORDERED: METOPROLOL SUCC 50MG EXT REL TAB PO SCH (21:00)
[2024-11-13 22:08] LABS: Appearance Urine Clear (Clear); Glucose Urine UA Negative (Negative)
[2024-11-13 22:16] LABS: Bacteria Urine Automated None Seen (None Seen); Cast Urine Automated 0-2 /lpf (0-2); Epithelial Cell Urine Auto 0-2 /hpf (0-2); RBC Urine Automated 0-2 /hpf (0-2)
[2024-11-14 07:48] LABS: Hematocrit (blood only) 35.2 % (37.0-47.0); Hemoglobin 11.7 g/dl (12.0-16.0); Immature Granulocytes # (auto) 0.02 K/uL (0.01-0.20); Immature Granulocytes % (auto) 0.2 %; Mean Corpuscular Hemoglobin 30.4 pg (25.0-34.0); Mean Corpuscular Volume 91.4 fL (80.0-100.0); Platelet Count 281 K/uL (130-400); RDW Standard Deviation 44.9 fL (36.4-46.3); Red Blood Count 3.85 M/uL (4.20-5.40); White Blood Count 8.41 K/ul (4.8-10.8)
[2024-11-14 08:07] LABS: Alanine Aminotransferase 12.0 U/L (7-52); Albumin Globulin Ratio 0.9 (0.9-2); Alkaline Phosphatase 63.0 U/L (34-104); Anion Gap 6.0 (3-11); Bilirubin,Total 0.5 mg/dl (0.2-1.0); Blood Urea Nitrogen 21.0 mg/dl (6-23); Calcium 9.3 mg/dl (8.6-10.3); Carbon Dioxide 33.0 mmol/L (21-32); Chloride 97.0 mmol/L (98-107); Creatinine Clr Calc Pharmacy 57.4 ml/min; Globulin 4.0 gm/dl (2.5-4.0); Glucose 87.0 mg/dl (70-99(Fasting)); Magnesium 2.2 mg/dl (1.7-2.4); Potassium 4.6 mmol/L (3.5-5.1); Sodium 136.0 mmol/L (136-145); Total Protein 7.4 gm/dl (6.0-8.3)
[2024-11-14] MEDS: ASPIRIN 81 MG CHEW PO SCH (08:25)
[2024-11-14] MEDS: METOPROLOL TARTRATE 50 MG TAB PO SCH (08:26)
--- NOTE | 2024-11-14 09:57 | Palliative Care Progress Note ---
Date of Service November 14, 2024 Assessment & Plan (1) Dyspnea and respiratory abnormalities: (2) Weakness generalized: (3) Palliative care by specialist: (4) Laryngeal cancer: (5) Acute on chronic heart failure with preserved ejection fraction: (6) Tracheostomy complication: Plan No changes Awaiting swallow study - SEASONING SPRAYER rere appreciated GOC discussion with dtr last night - please see my prior note Thank you for allowing us to participate in the ongoing care of this patient. Please page with any additional concerns. Rupal Vivas DNP Director, Palliative Medicine Admission and Anticipated Discharge Date Admission Date: November 12, 2024 Subjective No new complaints Awaiting SEASONING SPRAYER and PT rere [place] Records Reviewed: Pulm w/Dr Ruth: Vicki Antony presents for follow-up evaluation of: trach status, recurrent aspiration, COPD, laryngeal cancer, PH INTERVAL HISTORY 1. "Things don't seem to be looking up for me.+ she was hosp 3 times since last visit, UTI, CVA, HF/COPD AE. Juts home after most recent hosp, all at [facility], last d/c @ 1 week ago. In the days prior to this admission,. Progressive CLARK and low Spo2 over days, assc with min edema. Since d/c SpO2 has decreased to 2- 4 LPM, to maintain Spo2 >90%, progressed to tolerating lower FiO2 or RA at rest for short periods. No inc cough. Changing trach at home biw. 2. Resting dyspnea: ok with O2 2 LPM 3. CLARK:able to walk within the home 4. Cough:post prandial and qAM, productive 5. Nocturnal Sx: anxious, therefore trouble sleeping 6. Other respiratory symptoms: no wheezing. Thick mucus 7. Recent exacerbations: above 8. Interval ED or Hosp (summary notes reviewed): She was hospitalized at [facility] in July 2024 due to stroke-like symptoms. & 10/19-10/22 due to HF AE, ? COPD AE (See above) 9. New med problems: above, TIA's. No new aspiration events 10. Weight: @ 94# 11. Smoking: Quit 4 years 12: Exercise: min 13. Vaccinations: fluvax 2023; COVID 2024, Pneumovax +, no RSV Pulmonary Problem List: 1.COPD Smoking-related Likely combination of chronic bronchitis and emphysema Likely gold class D 2.History of recurring aspiration pneumonia 3.Long history of cigarette smoking,incessation. 4.Chronic tracheostomy status 5. Echocardiographic evidence of possible pulmonary hypertension Indeterminate findings If present, likely WHO group 2 Other conditions that may impact pulmonary management: 1.Oropharyngeal dysphagia 2.Apparent weight loss 3.Peripheral artery disease Recommendations & Plan: 1.Continue Respiratory, Duoneb bud, Breztri bid. 2.Trach care at home as she has been doing 3.add mucomyst nebs bid, Combivent for out of home use. 4. I advised her to get a flu shot and updated COVID booster. 5 continue diuretic therapy per Cardiology, to manage pulmonary hypertension ENT Eliezer Garcia/Pavan Willson MD She is a patient of Dr. Humphrey and former patient of Dr. Lynda vital since retired. Please refer to Dr. 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 She is trach dependent and should not be decannulated without ENT consultation / supervision. S/P coronary artery stent placement Dr. Linette ceheverria fiberoptic exam tracheobronchoscopy was performed through the tracheostomy tube and revealed the trach tube to be in goodposition in the lumen.No granulation. 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 Chapincito Carmichael)who is tracheotomy dependent due to supraglottic edema Plan: - stable -she will follow-up with me in 6 months for routine trach care Bronch 01/26/2020 The nasopharynx/oropharynx appears normal. The larynx appears normal. The vocal cords appear normal. The subglottic space is normal. The trachea is of normal caliber. The bekah is sharp. The tracheobronchial tree of the left lung was examined to at least the first subsegmental level. Bronchial mucosa and anatomy in the left lung are normal; there are no endobronchial lesions, and no secretions. The nasopharynx/oropharynx appears normal. The larynx appears normal. The vocal cords appear normal. The subglottic space is normal. The trachea is of normal caliber. The bekah is sharp. The tracheobronchial tree of the right lung was examined to at least the first subsegmental level. Bronchial mucosa and anatomy in the right lung are normal; there are no endobronchial lesions, and no secretions. 01/26/24, Vascular Doppler UE: IMPRESSION: The right wrist brachial index (WBI) is 0.39. Wrist brachial index was unable to be calculated due to medial calcinosis. For the right upper extremity: Waveform analysis and wrist brachial index (WBI) are consistent with severe arterial occlusive disease., Upper extremity arterial occlusive disease suggested by blood pressure differential. The left wrist brachial index (WBI) is 0.97. For the left upper extremity: Waveform analysis and wrist brachial index (WBI) are normal at rest for the upper extremity with no evidence of significant arterial occlusive disease. June 01, 2024 TTE Interpretation Summary (as per Dr. Bowie): The rhythm during the transthoracic echo examination was sinus tachycardia. The qualitative LV ejection fraction is 60-64% (normal). The LV wall thickness is mildly increased (concentric). The base inferior wall is mildly hypokinetic, otherwise, normal wall motion. The left ventricular diastolic function is mildly abnormal (grade I). Mild aortic valve sclerosis is present. Mild tricuspid regurgitation is present. The estimated pulmonary artery systolic pressure is 47mm Hg. Review of Systems Review of Systems: All systems reviewed & are unremarkable except as noted in Subjective Physical Exam Constitutional: + acute distress, + ill appearing (+trac h), + cachectic, + frail appearing and + disheveled Eyes: PERRL ENMT: trach, thick theodore secretions Neck: + tracheostomy present and + limited nec k extension Respiratory: + respiratory distress, + labored breath ing, + uses accessory muscles, + cough (bronchitic), + tachypneic, + pursed lip breathing and + tripod positioning Cardiovascular: Rate/Rhythm: regular rate and regular rhythm Heart Sounds: normal S1 and normal S2 Gastrointestinal (Abdomen): Inspection/Auscultation: normal bowel sounds Percussion/Palpation: abdomen soft Musculoskeletal: gen weakness muscle atrophy deconditioned Skin: + turgor decreased, + skin atrophy, + dr y skin, + excoriations, + pallor, + brittle hair, + hair thinning and + nails dystrophic Neurologic: aao x3 agitated irritable mood Results & Data Vital Signs (Past 12 Hours) Vital Signs Temp Pulse Pulse Resp BP Pulse Ox O2 Del Method 11/14/24 08:00 96 H 11/14/24 08:00 Trach Collar 11/14/24 07:47 36.5 C 85 19 160/71 H 95 Trach Collar 11/14/24 07:12 88 18 96 Trach Collar 11/14/24 04:09 36.6 C 79 18 152/68 H 94 Trach Collar 11/13/24 22:53 36.5 C 83 18 146/62 H 95 Trach Collar 11/13/24 22:18 89 O2 Flow Rate FiO2 11/14/24 08:00 11/14/24 08:00 8 28 11/14/24 07:47 8 11/14/24 07:12 28 11/14/24 04:09 11/13/24 22:53 11/13/24 22:18 Laboratory Results 11/14/24 11/14/24 11/13/24 Range/Units 14:15 07:34 Unknown WBC 8.41 (4.8-10.8) K/ul RBC 3.85 L (4.20-5.40) M/uL Hgb 11.7 L (12.0-16.0) g/dl Hct 35.2 L (37.0-47.0) % MCV 91.4 (80.0-100.0) fL MCH 30.4 (25.0-34.0) pg MCHC 33.2 (32.0-36.0) g/dL RDW Std Deviation 44.9 (36.4-46.3) fL RDW Coeff of Jair 13.4 (11.5-14.5) % Plt Count 281 (130-400) K/uL MPV 9.9 (9.4-12.4) fL Immature Gran % (Auto) 0.2 % Neut % (Auto) 76.1 % Lymph % (Auto) 14.0 % [place] % (Auto) 9.4 % Eos % (Auto) 0.2 % Baso % (Auto) 0.1 % Neut # (Auto) 6.39 (1.40-6.50) K/uL Lymph # (Auto) 1.18 L (1.20-3.40) K/uL [place] # (Auto) 0.79 H (0.11-0.59) K/uL Eos # (Auto) 0.02 (0.00-0.50) K/uL Baso # (Auto) 0.01 (0.00-0.20) K/uL Immature Gran # (Auto) 0.02 (0.01-0.20) K/uL Sodium 136 (136-145) mmol/L Potassium 4.6 (3.5-5.1) mmol/L Chloride 97 L (98-107) mmol/L Carbon Dioxide 33 H (21-32) mmol/L Anion Gap 6 (3-11) BUN 21 (6-23) mg/dl Creatinine 0.63 (0.6-1.2) mg/dl Est Cr Clr Drug Dosing 57.4 ml/min eGFR 94.78 BUN/Creatinine Ratio 33.3 H (10-20) Glucose 87 (70-99(Fasting)) mg/dl Calcium 9.3 (8.6-10.3) mg/dl Phosphorus (2.5-4.9) mg/dl Magnesium 2.2 (1.7-2.4) mg/dl Total Bilirubin 0.5 (0.2-1.0) mg/dl AST 22 (13-39) U/L ALT 12 (7-52) U/L Alkaline Phosphatase 63 (34-104) U/L Troponin I High Sens (0-14) pg/ml Total Protein 7.4 (6.0-8.3) gm/dl Albumin 3.4 (3.4-5.0) gm/dl Globulin 4.0 (2.5-4.0) gm/dl Albumin/Globulin Ratio 0.9 (0.9-2) Lipase (11-82) U/L Procalcitonin (0-0.5) ng/ml Urine Color Yellow Urine Appearance Clear (Clear) Urine pH 6.0 (4.5-7.5) Ur Specific [place] 1.015 (1.000-1.030) Urine Protein 1+ H (Negative) Urine Glucose (UA) Negative (Negative) Urine Ketones Negative (Negative) Urine Blood Negative (Negative) Urine Nitrite Negative (Negative) Urine Bilirubin Negative (Negative) Urine Urobilinogen Negative (Negative) Ur Leukocyte Esterase Negative (Negative) Urine WBC (Auto) 6-10 H (0-5) /hpf Urine RBC (Auto) 0-2 (0-2) /hpf U Hyaline Cast (Auto) 0-2 (0-2) /lpf U Epithel Cells (Auto) 0-2 (0-2) /hpf Urine Bacteria (Auto) None Seen (None Seen) Urine Comment Nasal Screen MRSA (PCR) Negative (Negative) Adenovirus (PCR) (NotDetected) B. pertussis DNA (PCR) (NotDetected) B.parapertussis DNA PCR (NotDetected) C. pneumoniae DNA (PCR) (NotDetected) Coronavirus OC43 (PCR) (NotDetected) Coronavirus HKU1 (PCR) (NotDetected) Coronavirus 229E (PCR) (NotDetected) SARS-CoV-2 (PCR) (Negative) Coronavirus NL63 (PCR) (NotDetected) Human Metapneumovir PCR (NotDetected) Influenza Type A (PCR) (Neg) Influenza Type B (PCR) (Neg) M. pneumoniae (PCR) (NotDetected) Parainfluenza 1 (PCR) (NotDetected) Parainfluenza 2 (PCR) (NotDetected) Parainfluenza 3 (PCR) (NotDetected) Parainfluenza 4 (PCR) (NotDetected) RSV (RT-PCR) (Neg) RSV (PCR) (NotDetected) Entero/Rhino (PCR) (NotDetected) 11/13/24 11/13/24 11/12/24 Range/Units 16:15 09:14 22:00 WBC 8.72 (4.8-10.8) K/ul RBC 3.76 L (4.20-5.40) M/uL Hgb 11.6 L (12.0-16.0) g/dl Hct 34.5 L (37.0-47.0) % MCV 91.8 (80.0-100.0) fL MCH 30.9 (25.0-34.0) pg MCHC 33.6 (32.0-36.0) g/dL RDW Std Deviation 45.0 (36.4-46.3) fL RDW Coeff of Jair 13.4 (11.5-14.5) % Plt Count 277 (130-400) K/uL MPV 10.2 (9.4-12.4) fL Immature Gran % (Auto) % Neut % (Auto) % Lymph % (Auto) % [place] % (Auto) % Eos % (Auto) % Baso % (Auto) % Neut # (Auto) (1.40-6.50) K/uL Lymph # (Auto) (1.20-3.40) K/uL [place] # (Auto) (0.11-0.59) K/uL Eos # (Auto) (0.00-0.50) K/uL Baso # (Auto) (0.00-0.20) K/uL Immature Gran # (Auto) (0.01-0.20) K/uL Sodium 135 L (136-145) mmol/L Potassium 4.2 (3.5-5.1) mmol/L Chloride 95 L (98-107) mmol/L Carbon Dioxide 31 (21-32) mmol/L Anion Gap 9 (3-11) BUN 23 (6-23) mg/dl Creatinine 0.66 (0.6-1.2) mg/dl Est Cr Clr Drug Dosing 51.2 ml/min eGFR 93.73 BUN/Creatinine Ratio 34.8 H (10-20) Glucose 102 H (70-99(Fasting)) mg/dl Calcium 9.4 (8.6-10.3) mg/dl Phosphorus (2.5-4.9) mg/dl Magnesium (1.7-2.4) mg/dl Total Bilirubin (0.2-1.0) mg/dl AST (13-39) U/L ALT (7-52) U/L Alkaline Phosphatase (34-104) U/L Troponin I High Sens 15.2 H (0-14) pg/ml Total Protein (6.0-8.3) gm/dl Albumin (3.4-5.0) gm/dl Globulin (2.5-4.0) gm/dl Albumin/Globulin Ratio (0.9-2) Lipase (11-82) U/L Procalcitonin (0-0.5) ng/ml Urine Color Urine Appearance (Clear) Urine pH (4.5-7.5) Ur Specific [place] (1.000-1.030) Urine Protein (Negative) Urine Glucose (UA) (Negative) Urine Ketones (Negative) Urine Blood (Negative) Urine Nitrite (Negative) Urine Bilirubin (Negative) Urine Urobilinogen (Negative) Ur Leukocyte Esterase (Negative) Urine WBC (Auto) (0-5) /hpf Urine RBC (Auto) (0-2) /hpf U Hyaline Cast (Auto) (0-2) /lpf U Epithel Cells (Auto) (0-2) /hpf Urine Bacteria (Auto) (None Seen) Urine Comment Nasal Screen MRSA (PCR) (Negative) Adenovirus (PCR) Not Detected (NotDetected) B. pertussis DNA (PCR) Not Detected (NotDetected) B.parapertussis DNA PCR Not Detected (NotDetected) C. pneumoniae DNA (PCR) Not Detected (NotDetected) Coronavirus OC43 (PCR) Not Detected (NotDetected) Coronavirus HKU1 (PCR) Not Detected (NotDetected) Coronavirus 229E (PCR) Not Detected (NotDetected) SARS-CoV-2 (PCR) Not Detected NEGATIVE (Negative) Coronavirus NL63 (PCR) Not Detected (NotDetected) Human Metapneumovir PCR Not Detected (NotDetected) Influenza Type A (PCR) Not Detected Negative (Neg) Influenza Type B (PCR) Not Detected Negative (Neg) M. pneumoniae (PCR) Not Detected (NotDetected) Parainfluenza 1 (PCR) Not Detected (NotDetected) Parainfluenza 2 (PCR) Not Detected (NotDetected) Parainfluenza 3 (PCR) Not Detected (NotDetected) Parainfluenza 4 (PCR) Not Detected (NotDetected) RSV (RT-PCR) Negative (Neg) RSV (PCR) Not Detected (NotDetected) Entero/Rhino (PCR) Not Detected (NotDetected) 11/12/24 Range/Units 20:00 WBC 13.68 H (4.8-10.8) K/ul RBC 4.10 L (4.20-5.40) M/uL Hgb 11.9 L (12.0-16.0) g/dl Hct 37.2 (37.0-47.0) % MCV 90.7 (80.0-100.0) fL MCH 29.0 (25.0-34.0) pg MCHC 32.0 (32.0-36.0) g/dL RDW Std Deviation 44.7 (36.4-46.3) fL RDW Coeff of Jair 13.6 (11.5-14.5) % Plt Count 293 (130-400) K/uL MPV 10.0 (9.4-12.4) fL Immature Gran % (Auto) 0.3 % Neut % (Auto) 87.0 % Lymph % (Auto) 5.9 % [place] % (Auto) 6.4 % Eos % (Auto) 0.1 % Baso % (Auto) 0.3 % Neut # (Auto) 11.91 H (1.40-6.50) K/uL Lymph # (Auto) 0.81 L (1.20-3.40) K/uL [place] # (Auto) 0.87 H (0.11-0.59) K/uL Eos # (Auto) 0.01 (0.00-0.50) K/uL Baso # (Auto) 0.04 (0.00-0.20) K/uL Immature Gran # (Auto) 0.04 (0.01-0.20) K/uL Sodium 137 (136-145) mmol/L Potassium 4.0 (3.5-5.1) mmol/L Chloride 93 L (98-107) mmol/L Carbon Dioxide 30 (21-32) mmol/L Anion Gap 14 H (3-11) BUN 23 (6-23) mg/dl Creatinine 0.85 (0.6-1.2) mg/dl Est Cr Clr Drug Dosing 39.6 ml/min eGFR 73.20 BUN/Creatinine Ratio 27.1 H (10-20) Glucose 97 (70-99(Fasting)) mg/dl Calcium 9.7 (8.6-10.3) mg/dl Phosphorus 3.2 (2.5-4.9) mg/dl Magnesium 1.9 (1.7-2.4) mg/dl Total Bilirubin 0.7 (0.2-1.0) mg/dl AST 25 (13-39) U/L ALT 14 (7-52) U/L Alkaline Phosphatase 78 (34-104) U/L Troponin I High Sens 17.4 H (0-14) pg/ml Total Protein 8.2 (6.0-8.3) gm/dl Albumin 3.7 (3.4-5.0) gm/dl Globulin 4.5 H (2.5-4.0) gm/dl Albumin/Globulin Ratio 0.8 L (0.9-2) Lipase 10 L (11-82) U/L Procalcitonin 0.05 (0-0.5) ng/ml Urine Color Urine Appearance (Clear) Urine pH (4.5-7.5) Ur Specific [place] (1.000-1.030) Urine Protein (Negative) Urine Glucose (UA) (Negative) Urine Ketones (Negative) Urine Blood (Negative) Urine Nitrite (Negative) Urine Bilirubin (Negative) Urine Urobilinogen (Negative) Ur Leukocyte Esterase (Negative) Urine WBC (Auto) (0-5) /hpf Urine RBC (Auto) (0-2) /hpf U Hyaline Cast (Auto) (0-2) /lpf U Epithel Cells (Auto) (0-2) /hpf Urine Bacteria (Auto) (None Seen) Urine Comment Nasal Screen MRSA (PCR) (Negative) Adenovirus (PCR) (NotDetected) B. pertussis DNA (PCR) (NotDetected) B.parapertussis DNA PCR (NotDetected) C. pneumoniae DNA (PCR) (NotDetected) Coronavirus OC43 (PCR) (NotDetected) Coronavirus HKU1 (PCR) (NotDetected) Coronavirus 229E (PCR) (NotDetected) SARS-CoV-2 (PCR) (Negative) Coronavirus NL63 (PCR) (NotDetected) Human Metapneumovir PCR (NotDetected) Influenza Type A (PCR) (Neg) Influenza Type B (PCR) (Neg) M. pneumoniae (PCR) (NotDetected) Parainfluenza 1 (PCR) (NotDetected) Parainfluenza 2 (PCR) (NotDetected) Parainfluenza 3 (PCR) (NotDetected) Parainfluenza 4 (PCR) (NotDetected) RSV (RT-PCR) (Neg) RSV (PCR) (NotDetected) Entero/Rhino (PCR) (NotDetected) Diagnostic Findings Chest X-Ray 11/12/24 19:47 Single frontal view of the chest Comparison made to prior exam dated 10/31/2024 Impression No acute pulmonary pathology. Tracheostomy tube with the tip above the bekah. Diffuse changes COPD with bibasilar fibrotic change stable since prior study. Electronically signed by Dennis Hilton 11-12-2024 8:25 PM Soft Tissue Neck CT 11/13/24 15:59 Clinical history: Assess tracheostomy placement Technique: Axial computed tomography images were obtained of the neck after the administration of intravenous contrast Comparison is made to the neck CTA dated 07/12/2024 Findings: A tracheostomy catheter is again seen in expected position, with its tip at the level of T2. Again seen is narrowing of the supraglottic airway with partially calcified soft tissue attenuation material The salivary glands appear unremarkable. No adenopathy is seen. No tonsillar enlargement is seen. The thyroid gland is diminutive and heterogeneous. There is emphysema involving the lung apices. There is multilevel degenerative disc disease and osteoarthritis of the cervical spine. Extensive atherosclerotic plaque is again seen. The visualized paranasal sinuses and mastoid air cells appear clear. The orbits appear normal Impression: 1. Tracheostomy catheter with its tip at the level of T2 2. No definite change in narrowing of the supraglottic airway, which could be due to neoplasm or scarring such as from prior trauma or treated malignancy. Clinical correlation is recommended 3. Emphysema Electronically signed by Nile Romo 11-13-2024 7:[address] 11/14/24 13:19 CT OF THE CHEST WITHOUT IV CONTRAST CLINICAL HISTORY: Increased cough, dysphagia. COMPARISON STUDY: Chest CT October 24, 2024. Chest radiograph November 12, 2024. CT DOSE: 311. mGy.cm TECHNIQUE: Axial images of the chest were obtained without IV contrast. Images were reviewed in the axial, sagittal, and coronal planes. IV contrast was not administered for this examination. Automated exposure control was utilized for the study. A dose lowering technique was utilized adhering to the principles of ALARA. FINDINGS: Tracheostomy tube is in place. No enlarged axillary, mediastinal or hilar lymph nodes are present. Mild cardiomegaly is again noted. There is extensive coronary artery calcification. Central airways are patent. No pneumothorax or pleural effusion is present. There is moderate upper lobe predominant emphysema. Mild groundglass opacities and tree-in-bud nodules within the lower lobes and right middle lobe are noted. These have developed since prior CT. There are minimal secretions within the airways. No central obstructing mass is present. There is no confluent consolidation. Excreted contrast within the collecting systems from recent contrast-enhanced CT is noted. There is extensive atherosclerotic plaque within the aortic arch and descending thoracic aorta as well as visualized portions of the abdominal aorta. IMPRESSION: 1. Mild groundglass opacities and tree-in-bud nodules within the bilateral lower lobes and right middle lobe. The findings favor an infectious process such as bronchiolitis or developing bronchopneumonia. No confluent consolidation. Aspiration pneumonitis is within the differential. 2. Tracheostomy tube in place. 3. Mild cardiomegaly. Extensive coronary artery calcification. ACT 112: Negative or not required by law. Electronically signed by: Ren Castanon M.D. 11/14/2024 3:04 PM PG Care Time/CCT Total # of Minutes Spent Total Time Spent with Patient: Total time spent is greater than 50% in coordination of care (as documented) at patient's floor/unit and/or counseling patient: I spent 50 minutes overall addressing this case: 10 min in medical data review/discussion with referring provider(s) and/or preparation for the visit 15 min in direct interaction with the patient/exam 00 min in Advance Care Planning/Goals of Care discussions as detailed above in note (must be >16min) 10 min in subsequent review and synthesis of assessment and plan 15 min communicating with other providers regarding the patient's case: SEASONING SPRAYER C[place] [address] SUB INP/OBS CARE 50MIN Patient Type Established History Comprehensive Exam Comprehensive Medical Decision Making Moderate Complexity Diagnoses Dyspnea and respiratory abnormalities R06.00; R06.89 Weakness generalized R53.1 Palliative care by specialist Z51.5 Laryngeal cancer C32.9 Acute on chronic heart failure with preserved ejection fraction I50.33 Tracheostomy complication J95.00 Tracheostomy complication: unspecified (6) Tracheostomy complication Tracheostomy complication: unspecified Qualified Code(s): J95.00 - Unspecified tracheostomy complication
--- NOTE | 2024-11-14 10:05 | Hospitalist Progress Note ---
Date of Service November 14, 2024 Assessment & Plan (1) Weakness: (2) Dysphagia: (3) Thrush: (4) CHF (congestive heart failure): Plan 69yo female with a history of CAD s/p PCI, HTN, COPD, laryngeal cancer s/p tracheostomy with chronic respiratory failure on 4 L trach collar, hypoth yroidism, PAD with right subclavian artery stenosis and EZIO, here with generalized weakness, poor appetite, malaise. Initially thought to have COPD exacerbation but does not. Respiratory BioFire negative, procalcitonin negative, CXR, and UA negative. Is requiring slightly more oxygen than usual. Also complains of significant dysphagia and is a known chronic aspirator. Diagnosed with oral Candidiasis and now improving with treatment #Generalized weakness - etiology unclear but likely from Oral Candidiasis causing poor po intake. No obvious infection otherwise. -treating thrush -PT/OT ordered-pending but would benefit from short term rehab stay -Dietitian, speech therapy ordered-added boost shakes and changed from heart healthy to regular so that she can be offered more choices of food #Chronic aspiration/oral thrush-secondary to tracheostomy and previous radiation to the neck. Video swallow study in 07/2024 with aspiration of all substances- permissive aspiration decided at that time. Now with oral thrush improving with fluconazole - Cont fluconazole 20 mg IV once daily and convert to po once taking po more reliably - Changed medications from extended release versions to immediate release that can be crushed and given with pudding e.g. isosorbide, Toprol XL, ASA EC - Speech therapy ordered - Changed to easy to chew diet which was previously recommended #Shortness of breath/COPD/Tracheostomy/Acute on chronic resp failure with hypoxemia - diminished breath sounds and with rhonchi, crackles now improving. Increased O2 requirement at 8L trach collar. Now coughing up sputum. Possible COPD exacerbation-treated with IV steroids no improvement and steroids stopped. CT soft tissues neck no significant abnormalities other than chronic supraglottic stenosis -check sputum cx -Continue Fluticasone, umeclidinium/vilanterol, Duonebs PRN, Albuterol PRN, Mucomyst nebs, hypertonic nebs -Suction PRN and tracheostomy care -Consult pulmonology to see if there is any improvements that can be made with her tracheostomy to improve shortness of breath - Continue supplemental O2 and wean down as tolerated #CAD - chronic elevation of troponin, repeat troponin down to 15 from 17. No chest pain or changes on ECG -Continue ASA and Plavix -Continue Atorvastatin and metoprolol but changed to tartrate # Chronic HFpEF- appears to be compensated -Continue Bumex 1mg po daily -Continue Isosorbide mononitrate-changed to short acting that can be crushed #Anxiety -Buspirone 5mg po BID -Continue Venlafaxine #Hypothyroidism-recent TSH normal at 0.8 -Continue Synthroid DVT prophylaxis- SCDs Disposition-continued stay in telemetry, improving, will likely need rehab Admission and Anticipated Discharge Date Admission Date: November 12, 2024 Subjective Feeling better today, was able to eat more-took pills crushed, ate pudding, a Boost shake. Says she is coughing up more sputum today. Is tired after workin mel[place]Texted OT but wants to try to get to a chair ater. Is reluctantly agreeable to rehab stay after this hospitalization Tele with NSR rates 80-100s Physical Exam Constitutional: + frail appearing and + underweight ENMT: Mouth: + tongue abnormality (White exudate on tongue) Neck: + tracheostomy present; + abnormal visua l inspection Respiratory: normal respiratory effort and + cough Auscultation: + crackles (left lower lung field); no rhonchi and no wheezes Cardiovascular: RRR, no murmur, no edema Gastrointestinal (Abdomen): normal bowel sounds, soft, nontender, no hepatosplenomegaly Psychiatric: A+Ox3, euthymic affect Results & Data Results & Data Vital Signs (Past 12 Hours) Vital Signs Temp Pulse Pulse Resp BP Pulse Ox O2 Del Method 11/14/24 08:00 96 H 11/14/24 08:00 Trach Collar 11/14/24 07:47 36.5 C 85 19 160/71 H 95 Trach Collar 11/14/24 07:12 88 18 96 Trach Collar 11/14/24 04:09 36.6 C 79 18 152/68 H 94 Trach Collar 11/13/24 22:53 36.5 C 83 18 146/62 H 95 Trach Collar 11/13/24 22:18 89 O2 Flow Rate FiO2 11/14/24 08:00 11/14/24 08:00 8 28 09/09/25 07:47 8 11/14/24 07:12 28 11/14/24 04:09 11/13/24 22:53 11/13/24 22:18 Laboratory Results CBC, CMP, mag, UA reviewed PG Care Time/CCT Total # of Minutes Spent Total Time Spent with Patient: Total time spent is greater than 50% in coordination of care (as documented) at patient's floor/unit and/or counseling patient: Coding Level of Care Code 90693 SUB INP/OBS CARE 2/35MIN Diagnoses Weakness R53.1 Dysphagia R13.10 Thrush B37.0 CHF (congestive heart failure) I50.9 Heart failure chronicity: acute on chronic Heart failure type: unspecified (4) CHF (congestive heart failure) Heart failure chronicity: acute on chronic Heart failure type: unspecified Qualified Code(s): I50.9 - Heart failure, unspecified
--- NOTE | 2024-11-14 13:22 | Pulmonary Consultation ---
Date of Consultation November 14, 2024 Assessment & Plan (1) Tracheobronchitis: Respiratory viral panel on admission was negative. Patient endorses increased cough with sputum production and has increasing oxygen requirements. Exam reveals mild crackles at the bases. Chest x-ray personally reviewed and reveals diffuse emphysematous and fibrotic changes with an appropriately seated tracheostomy. Air trapping was noted. In the light of the patient's infectious symptoms, we will pursue antibiotic treatment with Zosyn and azithromycin. Will pursue a CT chest without contrast to better visualize the lungs. Doubtful of underlying PE as the patient is not tachycardic and denies any worsening shortness of breath. Chest CTA PE protocol 10/14/2024 did not reveal any evidence of pulmonary embolism. (2) Tracheostomy dependent: Patient has a size [address] She normally eats with her tracheostomy. She has a speech evaluation that is pending. (3) Chronic hypoxic respiratory failure, on home oxygen therapy: Patient has increased oxygen requirements compared to her baseline. Will treat infectious etiology as above. Recommend physical therapy and out of bed to chair and walking as able. (4) Chronic hypercapnia: VBG 10/19/2024 revealed acute on chronic hypercapnic respiratory failure with a pH of 7.34 and a pCO2 of 58. Chemistries today reveal a serum carbon dioxide of 33 which may also be related to diuresis. I suspect she has a chronic metabolic alkalosis due to chronic CO2 retention and diuresis. Recommend monitoring this closely. Plan I personally spent 60 minutes on the date of service in activities related to this patient's encounter, including 35 minutes of counseling with patient regarding treatment plan and 25 minutes of clinical review of lab results and documentation. I did estate planning counselor the patient regarding their diagnosis and treatment plan and they expressed understanding. This note was dictated using voice recognition software and may include grammatical errors, extra words, word substitutions and other inaccuracies due to errors in the voice recognition software and differences in speech patterns. History of Present Illness Reason for Consultation: "Tracheostomy, dysphagia" Attending Physician: Destiny Bishop MD History of Present Illness 69-year-old female with a prior history of laryngeal cancer status post radiation and partial resection in 2017 presenting to the hospital due to increasing weakness and loss of appetite. Patient also endorses weight loss. She was seen by her mine foreman Dr. Ruth at [facility] via telehealth October 30 and I was able to review that note. Patient has a greater than [id number] smoking history and significant secondhand smoke exposure. 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 She notes that over this hospitalization she has had increased cough with sputum production. She denies hemoptysis. She notes some mild back pain. She denies any increasing shortness of breath, but notes that her oxygen requirements are higher here than they are at home. She is currently on 6 L via trach collar and at home she is typically on 2 L. She notes that she has had trouble swallowing which has been ongoing for several weeks. Her primary mine foreman in his last note recommended continuing Brezti, trach care at home, DuoNebs and getting her flu shot and COVID booster. He notes her di uretic therapy was manage make pulmonary hypertension clinic/cardiology. Patient notes that her sister changes out her trike "a couple times a week". Patient has an uncuffed size 6 Shiley which is nonfenestrated. Patient is currently on Bumex 1 mg daily, Mucomyst nebulizer therapy twice a day, Arnuity/vilanterol/umeclidinium once a day and fluconazole 200 mg IV daily. Allergies Allergy/AdvReac Type Severity Reaction Status Date / Time bee venom protein (honey bee) Allergy Severe Anaphylaxis Verified 10/19/24 22:43 latex Allergy Intermediate Rash Verified 10/19/24 22:43 oxycodone [From Percocet] Allergy Intermediate PER Verified 10/19/24 22:43 GMG--GETS LOOPY. Home Medications Medication Instructions Recorded Confirmed Type soft lens rinse,store solution 03/01/19 10/20/24 History (Saline Sensitive Eyes drops) buspirone 5 mg tablet 5 mg PO BID Anxiety 10/31/19 11/12/24 History venlafaxine 75 mg tablet 75 mg PO BID 10/31/19 11/12/24 History aspirin 81 mg tablet,delayed 81 mg PO QAM 01/23/21 11/12/24 History release sodium chloride 0.65 % nasal spray 2 spray NA DIRECTED PRN 03/24/21 11/12/24 History aerosol (Saline Mist) Congestion budesonide 160 mcg-glycopyr 9 2 inh inhalation [facility]HS 12/17/22 11/12/24 History mcg-formot 4.8 mcg/actuation HFA inhaler (Breztri Aerosphere) metoprolol succinate 50 mg 50 mg PO HS 02/18/23 11/12/24 History tablet,extended release 24 hr levothyroxine 75 mcg tablet 75 mcg PO DAILYBB 07/12/24 11/12/24 History clopidogrel 75 mg tablet 75 mg PO QAM #30 tabs 07/14/24 11/12/24 Rx acetaminophen 160 mg/5 mL (5 mL) 650 mg PO Q6H PRN pain/fever 10/13/24 11/12/24 History oral solution baclofen 10 mg tablet 0 mg PO BID 10/13/24 11/12/24 History cyanocobalamin (vitamin B-12) 500 500 mcg PO DAILY 10/13/24 11/12/24 History mcg tablet (Vitamin B-12) lidocaine 4 % topical patch 1 patch topical DAILY Pain 10/13/24 11/12/24 History metoprolol succinate 50 mg 75 mg PO QAM 10/13/24 11/12/24 History tablet,extended release 24 hr isosorbide mononitrate 30 mg 30 mg PO QAM #30 tabs 10/16/24 11/12/24 Rx tablet,extended release 24 hr ipratropium 0.5 mg-albuterol 3 mg 3 ml NEB Q2H PRN shortness of 10/22/24 11/12/24 Rx (2.5 mg base)/3 mL nebulization breath or wheezing #180 mL soln sodium chloride 3 % for 3 ml inhalation Q6H PRN thickened 10/22/24 11/12/24 Rx nebulization secretions 30 days #120 mL bumetanide 1 mg tablet 1 mg PO DAILY 30 days #30 tabs 11/03/24 11/12/24 Rx potassium chloride 40 mEq/15 mL 40 meq (15 mL) PO DAILY 30 days 11/04/24 11/12/24 Rx oral liquid #450 mL acetylcysteine 100 mg/mL (10 %) 4 ml inhalation AMHS 11/12/24 11/12/24 History solution atorvastatin 40 mg tablet 40 mg PO HS 11/12/24 11/12/24 History ipratropium 20 mcg-albuterol 100 2 puff inhalation Q6H PRN Wheezing 11/12/24 11/12/24 History mcg/actuation mist for inhalation (Combivent Respimat) Patient History Medical History 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 MONTENEGRO 2016 - ABN STRESS TEST [facility] - NO STENTS/ANGIOPLASTY History of tonsillectomy and adenoidectomy Family History Daughter Family history of reaction to anesthesia SLOW TO WAKE Father Family hx of colon cancer Other Colon cancer No pertinent family history Social History Smoking Status: Former smoker Tobacco Type: Cigarettes Cigarettes Per Day: 1-2; Second Hand Exposure: No; Do You Dip or Chew Tobacco: No; Tobacco Cessation Education Requested by Patient: No Hx Alcohol Use: No Hx Substance Use: No Preferred Language: Monegasque Communication Ability: Effective Plant Tech Required: No Beliefs That Will Affect Care: None marital status: Current Living Situation: Alone Current Living Situation Comment: daughte visits daily current occupational status: retired Feels Safe at Home: Yes Safety Concerns: Feels Safe At This Time Assistive Devices: Nebulizer and Oxygen - Continuous Review of Systems Review of Systems: All systems reviewed & are unremarkable except as noted in HPI & below Physical Exam Physical Exam: Constitutional: Patient appears to be of their stated age. Patient is in no apparent distress. Patient is well-developed. Eyes: Pupils are equal round and reactive to light. Conjunctivae are normal. Anicteric sclera. Ears nose, mouth and throat: Mallampati class 2. Normal posterior oropharynx. Uvula is midline. Tracheostomy in place. Neck: Trachea is midline. Visual inspection is normal. Respiratory: Prolonged phase of exhalation. Diminished at the bases bilaterally with mild crackles. No significant wheezes. Cardiovascular: Regular rate and rhythm. No murmurs. No edema. Gastrointestinal: Normal bowel sounds, soft, nontender and nondistended. No hepatosplenomegaly noted. Musculoskeletal: No cyanosis. Patient is able to move all extremities. Strength is 5 out of 5 in the upper and lower extremities. Skin: No rashes, warm dry and intact. Neurologic: No obvious focal neurological deficits seen. Psychiatric: Alert and oriented x3 with a euthymic affect. Results & Data Results & Data Vital Signs (Past 12 Hours) Vital Signs Temp Pulse Pulse Resp BP Pulse Ox Pulse Ox 11/14/24 11:10 36.9 C 83 19 104/58 L 94 11/14/24 10:24 95 11/14/24 08:00 96 H 11/14/24 08:00 11/14/24 07:47 36.5 C 85 19 160/71 H 95 11/14/24 07:12 88 18 96 11/14/24 04:09 36.6 C 79 18 152/68 H 94 O2 Del Method O2 Flow Rate O2 Flow Rate FiO2 11/14/24 11:10 Trach Collar 6 11/14/24 10:24 8 11/14/24 08:00 11/14/24 08:00 Trach Collar 8 28 11/14/24 07:47 Trach Collar 8 11/14/24 07:12 Trach Collar 28 11/14/24 04:09 Trach Collar PG Care Time/CCT Total # of Minutes Spent Total Time Spent with Patient: Total time spent is greater than 50% in coordination of care (as documented) at patient's floor/unit and/or counseling patient: Coding Level of Care Code 43609 INT INP/OBS CARE 2/55MIN Diagnoses Tracheobronchitis J40 Tracheostomy dependent Z93.0 Chronic hypoxic respiratory failure, on home oxygen therapy J96.11; Z99.81 Chronic hypercapnia R06.89
[2024-11-14] MEDS: AZITHROMYCIN 500 MG/255 ML BAG IV ONE (14:04)
[2024-11-14] MEDS: PIPERACILLIN/TAZOBACTAM 4.5 GM/100 ML BAG IV ONE (14:04)
--- NOTE | 2024-11-14 15:05 | CT Scan Report ---
CT OF THE CHEST WITHOUT IV CONTRAST CLINICAL HISTORY: Increased cough, dysphagia. COMPARISON STUDY: Chest CT October 24, 2024. Chest radiograph November 12, 2024. CT DOSE: 311. mGy.cm TECHNIQUE: Axial images of the chest were obtained without IV contrast. Images were reviewed in the axial, sagittal, and coronal planes. IV contrast was not administered for this examination. Automat ed exposure control was utilized for the study. A dose lowering technique was utilized adhering to t he principles of ALARA. FINDINGS: Tracheostomy tube is in place. No enlarged axillary, mediastinal or hilar lymph nodes are present. Mild cardiomegaly is again noted. There is extensive coronary artery calcification. Central airways are patent. No pneumothorax or pleural effusion is present. There is moderate upper lobe pred ominant emphysema. Mild groundglass opacities and tree-in-bud nodules within the lower lobes and righ t middle lobe are noted. These have developed since prior CT. There are minimal secretions within the airways. No central obstructing mass is present. There is no confluent consolidation. Excreted contr ast within the collecting systems from recent contrast-enhanced CT is noted. There is extensive ather osclerotic plaque within the aortic arch and descending thoracic aorta as well as visualized portions of the abdominal aorta. IMPRESSION: 1. Mild groundglass opacities and tree-in-bud nodules within the bilateral lower lobes and right midd le lobe. The findings favor an infectious process such as bronchiolitis or developing bronchopneumoni a. No confluent consolidation. Aspiration pneumonitis is within the differential. 2. Tracheostomy tube in place. 3. Mild cardiomegaly. Extensive coronary artery calcification. ACT 112: Negative or not required by law. Electronically signed by: Ren Castanon M.D. 11/14/2024 3:04 PM
[2024-11-14] MEDS: PIPERACILLIN/TAZOBACTAM 4.5 GM/100 ML BAG IV SCH (16:47)
[2024-11-14] MEDS: ACETAMINOPHEN SUSP 325 MG/10.15 ML UDC PO PRN (19:31)
[2024-11-14] MEDS: BUDESONIDE 0.5 MG/2 ML VIAL (PULMICORT) NEB SCH (19:43)
[2024-11-14] MEDS: FORMOTEROL 20 MCG/2 ML VIAL NEB SCH (19:44)
--- NOTE | 2024-11-15 11:52 | Pulmonology Progress Note ---
Date of Service November 15, 2024 Assessment & Plan (1) Tracheobronchitis: Plan: Patient's infectious symptoms are improving with antibiotics. Recommend continued IV Zosyn and azithromycin and consider transitioning to Levaquin as she gets ready for discharge. Continue routine tracheostomy care. Continue bronchodilation therapy and hypertonic saline for airway clearance. Aspiration precautions per speech pathology. (2) Tracheostomy dependent: Plan: Continue routine trach care. Plan Pulmonary to sign off at this time. Please call with questions. Admission and Anticipated Discharge Date Admission Date: November 12, 2024 Subjective Symptomatically she has improved today with less cough. She feels like it is difficult to bring up her secretions. Her oxygen requirements have improved slightly as well. She denies any chest pain. No hemoptysis. No fevers or chills. She is up in her bed. She underwent an ultrasound of her lower extremities today. Review of Systems Review of Systems: All systems reviewed & are unremarkable except as noted in HPI & below Physical Exam Physical Exam: Constitutional: Patient appears to be of their stated age. Patient is in no apparent distress. Patient is well-developed. Eyes: Pupils are equal round and reactive to light. Conjunctivae are normal. Anicteric sclera. Ears nose, mouth and throat: Mallampati class 2. Normal posterior oropharynx. Uvula is midline. Tracheostomy in place. Neck: Trachea is midline. Visual inspection is normal. Respiratory: Prolonged phase of exhalation. Diminished at the bases bilaterally with mild crackles. No significant wheezes. Cardiovascular: Regular rate and rhythm. No murmurs. No edema. Gastrointestinal: Normal bowel sounds, soft, nontender and nondistended. No hepatosplenomegaly noted. Musculoskeletal: No cyanosis. Patient is able to move all extremities. Skin: No rashes, warm dry and intact. Neurologic: No obvious focal neurological deficits seen. Psychiatric: Alert and oriented x3 with a euthymic affect. Results & Data Results & Data Vital Signs (Past 12 Hours) Vital Signs Temp Pulse Pulse Resp BP Pulse Ox O2 Del Method 11/15/24 11:03 36.4 C L 77 20 123/60 96 Trach Collar 11/15/24 07:48 Trach Collar 11/15/24 07:21 78 11/15/24 07:06 36.5 C 95 H 19 151/69 H 94 Trach Collar 11/15/24 07:00 84 18 98 Trach Collar 11/15/24 03:47 36.7 C 88 18 161/74 H 93 Trach Collar O2 Flow Rate FiO2 11/15/24 11:03 7 11/15/24 07:48 11/15/24 07:21 11/15/24 07:06 7 11/15/24 07:00 8 28 11/15/24 03:47 6 PG Care Time/CCT Total # of Minutes Spent Total Time Spent with Patient: Total time spent is greater than 50% in coordination of care (as documented) at patient's floor/unit and/or counseling patient: Coding Level of Care Code 33182 SUB INP/OBS CARE 2/35MIN Diagnoses Tracheobronchitis J40 Tracheostomy dependent Z93.0
--- NOTE | 2024-11-15 12:03 | Ultrasound Report ---
US arterial duplex LE BI CLINICAL HISTORY: bilateral foot pain,color change COMPARISON STUDY: None FINDINGS: There is mild to moderate narrowing at the common femoral arteries bilaterally. There is oc clusion at the mid aspect of the left superficial femoral artery with reconstitution at the left popl iteal artery with reconstituted three-vessel runoff to the left foot. No other significant arterial n arrowing or occlusion seen at bilateral lower extremities. IMPRESSION: Occlusion at the mid aspect of the left SFA with distal reconstitution. ACT 112: Negative or not required by law. Electronically signed by: Hung Pittman M.D. 11/15/2024 12:01 PM
[2024-11-15] MEDS: AZITHROMYCIN 250 MG in DEXTROSE 5% 250 ML IV SCH (17:25)
[2024-11-15] MEDS ORDERED: Nursing to Pharmacy Communication SCH (17:30)
--- NOTE | 2024-11-15 17:34 | Hospitalist Progress Note ---
Date of Service November 15, 2024 Assessment & Plan (1) Weakness: (2) Dysphagia: (3) Thrush: (4) CHF (congestive heart failure): Plan 69yo female with a history of CAD s/p PCI, HTN, COPD, laryngeal cancer s/p tracheostomy with chronic respiratory failure on 4 L trach collar, hypot hyroidism, PAD with right subclavian artery stenosis and EZIO, here with generalized weakness, poor appetite, malaise secondary to pneumonia. Respiratory BioFire negative, procalcitonin negative, CXR, and UA negative. Is requiring slightly more oxygen than usual. Also complains of significant dysphagia and is a known chronic aspirator. Also diagnosed with oral Candidiasis and now improving with treatment #Generalized weakness -secondary to pneumonia and poor p.o. intake from oral Candidiasis . Now improving - Continue treating thrush and pneumonia -PT/OT ordered-would benefit from short term rehab stay -Dietitian, speech therapy ordered-added boost shakes and changed from heart healthy to regular so that she can be offered more choices of food #Chronic aspiration/oral thrush-secondary to tracheostomy and previous radiation to the neck. Video swallow study in 07/2024 with aspiration of all substances- permissive aspiration decided at that time. Now with oral thrush improving with fluconazole - Cont fluconazole 20 mg IV once daily and convert to po once taking po more reliably - Changed medications from extended release versions to immediate release that can be crushed and given with pudding e.g. isosorbide, Toprol XL, ASA EC - Speech therapy ordered video swallow test to be performed on 11/16 - Changed to easy to chew diet which was previously recommended #Shortness of breath/COPD/Tracheostomy/Acute on chronic resp failure with hypoxemia/pneumonia- diminished breath sounds and with rhonchi, crackles now improving. Increased O2 requirement at 8L trach collar. Now coughing up sputum. Possible COPD exacerbation-treated with IV steroids no improvement and steroids stopped. CT soft tissues neck no significant abnormalities other than chronic supraglottic stenosis. CT chest reveals new ground glass opacities in multiple lobes consistent with pneumonia. Appreciate pulmonology consultation -check sputum cx if possible - Continue IV Zosyn and azithromycin. MRSA swab negative so no MRSA coverage needed - Pulmonology changed nebulizers to budesonide, Perforomist twice daily, and she will continue on Mucomyst nebs twice daily and as needed DuoNebs and as needed hypertonic saline -Suction PRN and tracheostomy care - Continue supplemental O2 and wean down as tolerated #CAD - chronic elevation of troponin, repeat troponin down to 15 from 17. No chest pain or changes on ECG -Continue ASA and Plavix -Continue Atorvastatin and metoprolol but changed to tartrate # Chronic HFpEF- appears to be compensated -Continue Bumex 1mg po daily -Continue Isosorbide mononitrate-changed to short acting that can be crushed #Anxiety -Buspirone 5mg po BID -Continue Venlafaxine #Hypothyroidism-recent TSH normal at 0.8 -Continue Synthroid DVT prophylaxis- SCDs Disposition-continued stay in telemetry, improving, will likely be medically stable for rehab on 11/16 Admission and Anticipated Discharge Date Admission Date: November 12, 2024 Subjective Patient feeling better today, still coughing up some sputum. Is eating more. Is frustrated that she had to be stuck 3 different times to get a new IV today. She also complained of significant pain in both of her feet that is now improved. Telemetry with normal sinus rhythm, PVCs, rates in the 70s to 90s Physical Exam Constitutional: + frail appearing and + underweight ENMT: Mouth: + tongue abnormality (White exudate on the completely resolved) Neck: + tracheostomy present; + abnormal visua l inspection Respiratory: normal respiratory effort and + cough Auscultation: + crackles (left lower lung field); no rhonchi and no wheezes Cardiovascular: RRR, no murmur, no edema Vessels: dorsalis pedis pulses present Gastrointestinal (Abdomen): normal bowel sounds, soft, nontender, no hepatosplenomegaly Psychiatric: A+Ox3, euthymic affect Results & Data Results & Data Vital Signs (Past 12 Hours) Vital Signs Temp Pulse Pulse Resp BP Pulse Ox O2 Del Method 11/15/24 15:42 36.3 C L 83 20 115/57 L 94 Trach Collar 11/15/24 14:45 90 18 97 Trach Collar 11/15/24 13:46 82 11/15/24 11:03 36.4 C L 77 20 123/60 96 Trach Collar 11/15/24 07:48 Trach Collar 11/15/24 07:21 78 11/15/24 07:06 36.5 C 95 H 19 151/69 H 94 Trach Collar 11/15/24 07:00 84 18 98 Trach Collar O2 Flow Rate FiO2 11/15/24 15:42 7 11/15/24 14:45 8 28 11/15/24 13:46 11/15/24 11:03 7 11/15/24 07:48 11/15/24 07:21 11/15/24 07:06 7 11/15/24 07:00 8 28 Diagnostic Findings Arterial duplex ultrasounds bilateral lower extremities reviewed PG Care Time/CCT Total # of Minutes Spent Total Time Spent with Patient: Total time spent is greater than 50% in coordination of care (as documented) at patient's floor/unit and/or counseling patient: Coding Level of Care Code 43360 SUB INP/OBS CARE 2/35MIN Diagnoses Weakness R53.1 Dysphagia R13.10 Thrush B37.0 CHF (congestive heart failure) I50.9 Heart failure chronicity: acute on chronic Heart failure type: unspecified (4) CHF (congestive heart failure) Heart failure chronicity: acute on chronic Heart failure type: unspecified Qualified Code(s): I50.9 - Heart failure, unspecified
--- NOTE | 2024-11-16 12:11 | Fluoroscopy Report ---
FL video swallow CLINICAL HISTORY: assess for increased aspiration. TECHNIQUE: Video fluoroscopic evaluation of swallowing was performed in the AP and lateral projection s by the speech pathology staff. The patient is fed nectar-thick and thin liquid barium, a barium coa reese wafer, and barium pudding. FLUOROSCOPY TIME: 1 minute 30 seconds. COMPARISON: 07/14/2024 FINDINGS: Tracheostomy tube is present. There is aspiration with thin liquid. There is vallecular res idual. There is reduced esophageal motility. IMPRESSION: Aspiration with thin liquid. ACT 112: Negative or not required by law. Electronically signed by: Hung Pittman M.D. 11/16/2024 12:10 PM
--- NOTE | 2024-11-16 17:11 | Hospitalist Progress Note ---
Date of Service November 16, 2024 Assessment & Plan (1) Pneumonia: (2) Weakness: (3) Dysphagia: (4) Thrush: (5) Pneumonia: Plan 69yo female with a history of CAD s/p PCI, HTN, COPD, laryngeal cancer s/p tracheostomy with chronic respiratory failure on 4 L trach collar, hypothyroi dism, PAD with right subclavian artery stenosis and EZIO, here with generalized weakness, poor appetite, malaise secondary to pneumonia. Respiratory BioFire negative, procalcitonin negative, CXR, and UA negative. Is requiring slightly more oxygen than usual. Also complains of significant dysphagia and is a known chronic aspirator. Also diagnosed with oral Candidiasis and now improving with treatment #Generalized weakness -secondary to pneumonia and poor p.o. intake from oral Candidiasis . Now much improved - Continue treating thrush and pneumonia -PT/OT rec rehab stay but now pt declines -Dietitian, speech therapy ordered-added boost shakes and changed from heart healthy to regular so that she can be offered more choices of food #Chronic aspiration/oral thrush-secondary to tracheostomy and previous radiation to the neck. Video swallow study in 07/2024 with aspiration of all substances- permissive aspiration decided at that time. Now with oral thrush improving with fluconazole. VFSS 11/16 again with aspiration with thin and nectar thick liquids, not clearing secretions from vallecula - Cont fluconazole 200 mg IV once daily and convert to po on dc for 14 day course - Changed medications from extended release versions to immediate release that can be crushed and given with pudding e.g. isosorbide, Toprol XL, ASA EC - F/u with ENT for laryngyscope - Changed to easy to chew diet which was previously recommended #Shortness of breath/COPD/Tracheostomy/Acute on chronic resp failure with hypoxemia/pneumonia- diminished breath sounds and with rhonchi, crackles now improved. Increased O2 requirement now improved-on 7L trach collar just for humidification, but is FiO2 21%. Is coughing up sputum. Possible COPD exacerbation-treated with IV steroids no improvement and steroids stopped. CT soft tissues neck no significant abnormalities other than chronic supraglottic stenosis. CT chest reveals new ground glass opacities in multiple lobes consistent with pneumonia. Appreciate pulmonology consultation -check sputum cx if possible - Continue IV Zosyn and azithromycin. MRSA swab negative so no MRSA coverage needed - Pulmonology changed nebulizers to budesonide, Perforomist twice daily, and she will continue on Mucomyst nebs twice daily and as needed DuoNebs and as needed hypertonic saline -Suction PRN and tracheostomy care - Continue supplemental O2 and wean down as tolerated #CAD - chronic elevation of troponin, repeat troponin down to 15 from 17. No chest pain or changes on ECG -Continue ASA and Plavix -Continue Atorvastatin and metoprolol but changed to tartrate # Chronic HFpEF- appears to be compensated -Continue Bumex 1mg po daily -Continue Isosorbide mononitrate-changed to short acting that can be crushed #Anxiety -Buspirone 5mg po BID -Continue Venlafaxine and increase dose to 75mg po tid #Hypothyroidism-recent TSH normal at 0.8 -Continue Synthroid DVT prophylaxis- SCDs Disposition-continued stay in telemetry, improving, will likely be medically stable for dc to home with on 11/17 Admission and Anticipated Discharge Date Admission Date: November 12, 2024 Subjective Feeling better, had one loose stool. Is eating more, wants to go home rather than rehab. Does not feel she needs to do PT. Admits she is very depressed. Physical Exam Constitutional: + frail appearing and + underweight ENMT: Mouth: + tongue abnormality (White exudate on the completely resolved) Neck: + tracheostomy present; + abnormal visua l inspection Respiratory: normal respiratory effort and + cough Auscultation: lungs clear to auscultation bilaterally Cardiovascular: RRR, no murmur, no edema Vessels: dorsalis pedis pulses present Gastrointestinal (Abdomen): normal bowel sounds, soft, nontender, no hepatosplenomegaly Psychiatric: A+Ox3, euthymic affect Results & Data Results & Data Vital Signs (Past 12 Hours) Vital Signs Temp Pulse Pulse Resp BP Pulse Ox O2 Del Method 11/16/24 17:01 80 11/16/24 15:39 36.8 C 79 19 111/54 L 99 Trach Collar 11/16/24 11:29 36.5 C 80 19 126/66 99 Trach Collar 11/16/24 08:00 66 11/16/24 08:00 Trach Collar 11/16/24 07:37 36.3 C L 77 19 150/67 H 98 Trach Collar 11/16/24 07:23 90 16 94 Trach Collar O2 Flow Rate FiO2 11/16/24 17:01 11/16/24 15:39 7 11/16/24 11:29 7 11/16/24 08:00 11/16/24 08:00 7 11/16/24 07:37 7 11/16/24 07:23 28 Laboratory Results sputum cx reviewed PG Care Time/CCT Total # of Minutes Spent Total Time Spent with Patient: Total time spent is greater than 50% in coordination of care (as documented) at patient's floor/unit and/or counseling patient: Coding Level of Care Code 76354 SUB INP/OBS CARE 2/35MIN Diagnoses Pneumonia J18.1 Laterality: left Lung location: lower lobe of lung Pneumonia type: due to unspecified organism Weakness R53.1 Dysphagia R13.10 Thrush B37.0 (1) Pneumonia Laterality: left Lung location: lower lobe of lung Pneumonia type: due to unspecified organism Qualified Code(s): J18.1 - Lobar pneumonia, unspecified organism
[2024-11-16] MEDS: LORazepam 0.5 MG TAB PO PRN (20:35)
[2024-11-16] MEDS: LOPERAMIDE HCL 2 MG CAP PO STA (21:36)
[2024-11-17] MEDS: VENLAFAXINE HCL 37.5 MG TAB PO SCH (08:25)
[2024-11-17] MEDS: LOPERAMIDE HCL 2 MG CAP PO STA (13:15)
--- NOTE | 2024-11-17 13:20 | Discharge Summary ---
Discharge Summary Date of Service November 17, 2024 Principal Dx & Hospital Course #1 = Principal Diagnosis (1) Pneumonia: (2) Weakness: (3) Dysphagia: (4) Thrush: Plan 69yo female with a history of CAD s/p PCI, HTN, COPD, laryngeal cancer s/p tracheostomy with chronic respiratory failure on 4 L trach collar, hypothyroidism, PAD with right subclavian artery stenosis and EZIO, here with generalized weakness, poor appetite, malaise secondary to pneumonia. Respiratory BioFire negative, procalcitonin negative, CXR, and UA negative. Is requiring slightly more oxygen than usual. Also complains of significant dysphagia and is a known chronic aspirator. Also diagnosed with oral Candidiasis and now improving with treatment #Generalized weakness -secondary to pneumonia and poor p.o. intake from oral Candidiasis . Now much improved - Continue treating thrush and pneumonia -PT/OT rec rehab stay but now pt declines and will go home with home health -Dietitian, speech therapy ordered-added boost shakes and changed from heart healthy to regular so that she can be offered more choices of food #Chronic aspiration/oral thrush-secondary to tracheostomy and previous radiation to the neck. Video swallow study in 07/2024 with aspiration of all substances- permissive aspiration decided at that time. Now with oral thrush much improved with fluconazole. VFSS 11/16 again with aspiration with thin and nectar thick liquids, not clearing secretions from vallecula - Cont fluconazole 200 mg p.o. once daily on dc for 9 more days to complete a total 14 day course - Changed medications from extended release versions to immediate release that can be crushed and given with pudding e.g. isosorbide, Toprol XL, ASA EC - F/u with ENT for laryngoscope within the near future-nurse navigator to help arrange - Changed to easy to chew diet and good oral hygiene which was previously recommended #Shortness of breath/COPD/Tracheostomy/Acute on chronic resp failure with hypoxemia/pneumonia- diminished breath sounds and with rhonchi, crackles now improved. Increased O2 requirement now improved-on 7L trach collar just for humidification, but is FiO2 21%. Is coughing up sputum and sputum culture growing Stenotrophomonas. Possible COPD exacerbation-treated with IV steroids no improvement and steroids stopped. CT soft tissues neck no significant abnormalities other than chronic supraglottic stenosis. CT chest reveals new ground glass opacities in multiple lobes consistent with pneumonia. Appreciate pulmonology consultation -Received IV Zosyn and azithromycin x 2 days but will convert to levofloxacin 750 mg p.o. once daily for 7-day course on discharge for stenotrophomonas -continue on Mucomyst nebs twice daily and as needed DuoNebs and as needed hypertonic saline, Breztri inhaler -Suction PRN and tracheostomy care -Continue usual home supplemental O2 #CAD - chronic elevation of troponin, repeat troponin down to 15 from 17. No chest pain or changes on ECG -Continue ASA and Plavix -Continue Atorvastatin and metoprolol but changed to tartrate so it can be crushed and # Chronic HFpEF- appears to be compensated -Continue Bumex 1mg po daily -Continue Isosorbide mononitrate at a slightly lower dose of 10 mg p.o. twice daily-changed to short acting that can be crushed #Anxiety -Buspirone 5mg po BID -Continue Venlafaxine and increase dose to 75mg po tid for depression - Give small supply of lorazepam 0.5 mg p.o./SL every 8 hours as needed anxiety or insomnia - She will follow-up with palliative medicine as an outpatient for management of her symptoms related to multiple chronic conditions given recurrent hospitalizations #Hypothyroidism-recent TSH normal at 0.8 -Continue Synthroid DVT prophylaxis- SCDs Disposition-stable for dc to home with on 11/17 Notes For Next Care Provider Needs close follow-up with ENT Will begin following with palliative medicine as an outpatient Medication Changes From Visit See list Admission HPI Per Admitting Provider Vicki Hardy is a 69-year-old female with history of CAD, hypertension, chronic hypoxic respiratory failure, hypothyroidism, peripheral arterial disease, tracheostomy in place presenting with generalized fatigue and shortness of breath. Patient was recently admitted to [facility] from 10/31 - 11/05 after presenting with worsening shortness of breath and increased oxygen requirement. She was found to have acute on chronic heart failure with preserved ejection fraction. She was diuresed and ultimately discharged home. New medications include Bumex 1 mg daily and potassium supplementation. Patient reports that over the last few days she has had increased weakness, fatigue, poor appetite and decreased oral intake as well as shortness of breath. Today patient has been complaining of a headache. Also with ambulatory dysfunctionunable to get around the house. Patient's daughter changed her tracheostomy today. Reports that the trach was clear, no secretions. Oxygen requirement has been about the same. Trach collar 8L/min in the ER - adequate oxygenation ER Course: Solumedrol Albuterol Tylenol Ativan Discharge Exam Constitutional + frail appearing and + underweight ENMT Mouth: + tongue abnormality (White exudate on the completely resolved) Neck + tracheostomy present; + abnormal visual inspection Respiratory normal respiratory effort and + cough Psychiatric A+Ox3, euthymic affect Discharge Plan Discharge Items Patient Disposition: Home - Home Health Services Reason For Visit: SHORTNESS OF BREATH, FATIGUE Discharge Diagnosis: Pneumonia Acute on chronic respiratory failure with hypoxemia Oral candidiasis Generalized weakness Chronic aspiration Condition on Discharge: Fair Activity: As commented below Lifting: Gradually increase as tolerated Bathing: No limitations Exercise/Sports: Gradually increase as tolerated Exercise Comment: With home PT/OT Non-emergency contact: Primary Care Provider Call non-emergency contact if: you have any medication questions, your symptoms worsen and you have a fever Follow-up/Referrals: Pavan Willson DO [Physician] - (The [facility] nurse navigator has reached out to Dr. Willson's office to see about getting you a closer follow-up appointment than your previously scheduled one in February.) Paola Wilson MD [Primary Care Provider] - David Serrano [Physician Merchandising Stock Associate] - 12/19/24 1:30 pm ([place] [facility]) Hunter Sena MD [Outside Practitioners] - 11/23/24 8:20 am Keya Vivas DNP [Nurse Practitioner] - (Please follow-up as scheduled with palliative medicine in 1 month-you will be contacted with your appointment date and time) Diet: Regular Diet Texture: Easy to Chew Addtl Attending Provider Instructions: Please finish out 6 more days of the antibiotic called levofloxacin for your pneumonia. If your diarrhea worsens to more than 3-4 times per day, please let your doctor know so you can be tested for a stool infection called C. difficile. Please continue your usual nebulizers and inhalers at home. You are back to your usual oxygen requirement. Please follow all of the aspiration precautions/instructions as per speech therapy. You will need to follow-up with your ENT surgeon in the near future to try to see if there is any residue in your throat that is causing worsening pneumonia. Please finish out 9 more days of fluconazole for the thrush in your mouth and throat. A lot of your medications were changed to chewable forms which can be crushed and taken with pudding or applesauce. For your depression, your venlafaxine was increased to 3 times a day. You can use lorazepam as needed for anxiety-use this sparingly and as we discussed, it can cause drowsiness. An appointment will be made for you in the palliative medicine clinic to discuss further management of symptoms given your ongoing long-term chronic medical issues. Pending Studies at Discharge: No Stand-Alone Forms: My [facility] [employer], Smoking Cessation Medications and DC Order Prescriptions: New fluconazole 100 mg Tablet 200 mg PO DAILY@1600 Qty: 18 0RF levofloxacin 750 mg Tablet 750 mg PO DAILY@1100 Qty: 6 0RF isosorbide mononitrate 10 mg tablet 10 mg PO BID Qty: 60 0RF metoprolol tartrate 50 mg tablet 75 mg PO BID Qty: 75 0RF Rx Instructions: Take 75 mg p.o. every morning and 50 mg p.o. nightly lorazepam 0.5 mg Tablet 0.5 mg sublingual Q8H PRN (Reason: Anxiety or insomnia) Qty: 30 0RF Continued buspirone 5 mg tablet 5 mg PO BID (DME) Saline Sensitive Eyes Drops MISCELLANEOUS Rx Instructions: 2 drops daily as needed Saline Mist 0.65 % aerosol,spray 2 spray NA DIRECTED PRN (Reason: Congestion) Dejuantri Aerosphere 160-9-4.8 mcg/actuation HFA aerosol inhaler 2 inh INHALATION [facility] aspirin 81 mg Tablet,Delayed Release (Dr/Ec) 81 mg PO QAM ipratropium-albuterol 0.5 mg-3 mg(2.5 mg base)/3 mL Solution For Nebulization 3 ml NEB Q2H PRN (Reason: shortness of breath or wheezing) Qty: 180 0RF sodium chloride 3 % Solution For Nebulization 3 ml INHALATION Q6H PRN (Reason: thickened secretions) 30 Days Qty: 120 0RF levothyroxine 75 mcg tablet 75 mcg PO DAILYBB clopidogrel 75 mg Tablet 75 mg PO QAM Qty: 30 0RF lidocaine 4 % Adhesive Patch,Medicated 1 patch TOPICAL DAILY Rx Instructions: ON BACK FOR 12 HR. THEN REMOVE cyanocobalamin (vitamin B-12) [Vitamin B-12] 500 mcg Tablet 500 mcg PO DAILY baclofen 10 mg Tablet 0 mg PO BID Patient Comments: PRESCRIBED 10MG PO BID; PT TAKES 10MG DAILY PRN acetaminophen 160 mg/5 mL (5 mL) Solution 650 mg PO Q6H PRN (Reason: pain/fever) Patient Comments: PT HAS HARD TIME SWALLOWING PILLS bumetanide 1 mg tablet 1 mg PO DAILY 30 Days Qty: 30 0RF Rx Instructions: If tracheal secretions thicken significantly causing difficulty clearing, hold dose one time then resume at normal interval potassium chloride 40 mEq/15 mL liquid 40 meq PO DAILY 30 Days Qty: 450 0RF acetylcysteine 100 mg/mL (10 %) solution 4 ml inhalation [facility] Combivent Respimat 20-100 mcg/actuation mist 2 puff INHALATION Q6H PRN (Reason: Wheezing) Rx Instructions: WITH SPACER atorvastatin 40 mg tablet 40 mg PO HS Changed venlafaxine 75 mg tablet 75 mg PO TIDM Qty: 90 0RF Rx Instructions: take with food Discontinued metoprolol succinate 50 mg tablet extended release 24 hr 50 mg PO HS metoprolol succinate 50 mg Tablet Extended Release 24 Hr 75 mg PO QAM isosorbide mononitrate 30 mg Tablet Extended Release 24 Hr 30 mg PO QAM Qty: 30 0RF Discharge Orders: Discharge Order (Routine); Ordered 11/17/24 Ordered By: Destiny Bishop Admission Data Admit Date/Time: 11/12/24 21:58 Attending Provider: Destiny Bishop Admit Provider: Asia Anaya Primary Care Provider: Paola Wilson Other Providers: Asia Anaya; Keya Vivas; [place]; [facility]; [facility]; Nataliya Cline Hospital Stay Data Consultations 11/12/24 20:51 ED Decision to Admit Stat 11/13/24 09:06 Consult Palliative Care Routine 11/13/24 15:57 Consult Pulmonology Routine Diagnostic Imagining Performed 11/13/24 15:59 CT soft tissue neck w con Routine 11/14/24 13:19 CT chest diagnostic wo con Urgent 11/15/24 09:01 US arterial duplex LE BI Urgent 11/16/24 10:30 FL video swallow Routine Pending Results Patient Have Any Pending Studies at Discharge: No Discharge Instructions Given to Patient (Per Discharging Provider) Please finish out 6 more days of the antibiotic called levofloxacin for your pneumonia. If your diarrhea worsens to more than 3-4 times per day, please let your doctor know so you can be tested for a stool infection called C. difficile. Please continue your usual nebulizers and inhalers at home. You are back to your usual oxygen requirement. Please follow all of the aspiration precautions/instructions as per speech therapy. You will need to follow-up with your ENT surgeon in the near future to try to see if there is any residue in your throat that is causing worsening pneumonia. Please finish out 9 more days of fluconazole for the thrush in your mouth and throat. A lot of your medications were changed to chewable forms which can be crushed and taken with pudding or applesauce. For your depression, your venlafaxine was increased to 3 times a day. You can use lorazepam as needed for anxiety-use this sparingly and as we discussed, it can cause drowsiness. An appointment will be made for you in the palliative medicine clinic to discuss further management of symptoms given your ongoing long-term chronic medical issues. Total Time Total Time Spent Total Time Spent (In Minutes): 45 minutes Total Time Includes: Examination of the Patient, Discharge Planning, Medication Reconciliation and Communication With Other Providers (Palliative medicine) Coding Level of Care Code 14537 INP/OBS DISCH >30 MIN Diagnoses Pneumonia J18.1 Laterality: left Lung location: lower lobe of lung Pneumonia type: due to unspecified organism Weakness R53.1 Dysphagia R13.10 Thrush B37.0
[2024-11-17 15:23] VITALS: BP 148/69; TEMP 97.5
[2024-11-17] MEDS: FLUCONAZOLE 100 MG TAB PO SCH (15:53)
[2024-11-17 16:16] VITALS: PULSE 87; RESP 17; O2SAT 90
== END 2024-11-17 18:48 | disposition home health service (06) | DRG 189 ==
LOC: ED 19:45 → 2S 21:58 → SUATTDRO 21:58 → 2S 11-13 00:07

== ENCOUNTER 2024-11-29 21:10 | Inpatient (IN) ==
--- NOTE | 2024-11-29 22:17 | Emergency Department Note ---
Impression & Plan GI bleed, Acute kidney injury superimposed on CKD, Tracheostomy dependent ED Provider Note CHIEF COMPLAINT: Diarrhea, blood in stool HISTORY OF PRESENTING ILLNESS: This 69-year-old female patient presents to the emergency department with her daughter for evaluation of bloody diarrhea. The patient states that she has been up all night last night with diarrhea and now has blood in her stool. The patient took Imodium this morning and then again this afternoon - a total of 4 doses. Her stools kept getting darker and then she noticed some blood when she wiped and now her stool looks like bright red blood mixed in with the liquidy stool. She has had 6 small amounts of liquidy stool in the past 2 hours and at least 10-20 other episodes at home. The redness of her stools started around 4 pm tonight. Last night she had a lot of abdominal pain and nausea. Not as much abdominal pain or nausea today. She has not been eating much recently. No previous history of C. diff. Denies any fevers. Denies chest pain or SOB today. Her chest felt "rattly" yesterday, but better today. She feels like the pneumonia is improving. The patient was just discharged from the hospital on 11/17/2024 for pneumonia, weakness, dysphagia, and thrush. The patient has a history of laryngeal cancer status post tracheostomy with chronic respiratory failure on 4 L by trach collar. The patient had a VFSS on 11/16/2024 that showed aspiration with thin and nectar thick liquids and she is not clearing secretions from the vallecula. The patient was treated with a 14-day course of fluconazole. The patient is to follow-up with ENT for laryngoscope as an outpatient. The patient's sputum culture grew stenotrophomonas. The patient received IV Zosyn and Zithromax x 2 days and then converted to levofloxacin 750 mg once a day for 7 days. The patient is to continue her Mucomyst nebs twice a day and DuoNebs as needed. The patient is also on a Breztri inhaler. The patient continues with Bumex 1 mg once a day for chronic HFpEF. The patient is on Plavix and aspirin. The patient was then started on Keflex on 11/24/24 as well for a trach infection that appears to be improving. REVIEW OF SYSTEMS: See HPI for pertinent positives and pertinent negatives. ALLERGIES: Bees, Percocet, Latex MEDICATIONS: See below PAST MEDICAL HISTORY: See below PHYSICAL EXAM: VITALS: Vitals are noted on the nurse's note and reviewed by myself. GENERAL: The patient is chronically ill in appearance and somewhat cachectic appearing. Non toxic, in no acute distress, non-diaphoretic. SKIN: Capillary refill <2 sec. EYES: PERRLA. EOMI. Conjunctivae without injection, sclerae without icterus. NOSE: Patent without discharge. MOUTH: Mucous membranes somewhat dry. Uvula midline. Airway patent. No obvious thrush present at this time. NECK: Supple without nuchal rigidity. Trach is present and the patient states the infection has improved. HEART: Regular rate and rhythm without murmurs gallops or rubs. LUNGS: Clear to auscultation bilaterally without wheezes, rales or rhonchi. No retractions or accessory muscle use. ABDOMEN: Positive bowel sounds x 4. Normal tympanic percussion. Soft, mild tenderness to palpation in the central abdomen. No masses or hepatosplenomegaly. Cowart sign negative. No CVA tenderness. No guarding, rigidity, or rebound tenderness. No focal RLQ or LLQ tenderness. RECTAL EXAM: Permission to perform the exam. Sleep Manager and the patient's daughter present for exam. No external lesions noted. No external hemorrhoids. No obvious tears, fistulas, or other lesion noted. Internal exam deferred at this time due to patient discomfort. Stool is brownish-red and Hemoccult positive. NEURO: Patient was alert and oriented. No focal neurological deficits. DIFFERENTIAL DIAGNOSIS: Differential diagnosis includes C. difficile, bacterial gastroenteritis, viral gastroenteritis, diverticular bleed, ischemic colitis, colitis, diverticulitis, hepatitis, pancreatitis, cholecystitis, cholelithiasis, appendicitis, kidney stone, pyelonephritis, UTI, gastritis, gastroenteritis, mesenteric adenitis, obstruction, constipation, hernia, abdominal abscess, perforation, diverticulitis, IBD, ischemic colitis, abdominal aortic aneurysm, , ectopic , ovarian cyst, ovarian torsion, acute salpingitis, or others. ED COURSE AND MEDICAL DECISION MAKING: HISTORY FROM INDEPENDENT HISTORIAN: Additional history obtained from the patient's daughter MEDICATIONS GIVEN: 250 mL normal saline solution bolus. Tylenol 1000 mg IV. MONITOR: Continuous teletypesetter monitor: Order was placed for continuous teletypesetter monitor. Patient was placed on the teletypesetter monitor and continuous pulse ox. Patient was noted to be in normal sinus rhythm at an initial rate of 78 bpm per my interpretation. EKG: EKG was interpreted by myself as normal sinus rhythm at 91 bpm with no acute ST or T wave changes. INTERPRETATION OF LABS: I interpreted the labs with full lab results as below in the lab section of this note. Laboratory results pertinent to the emergent complaint are discussed in the MDM section below. The patient was advised to follow up with their PCP and/or specialist(s) for further outpatient monitoring and management of any abnormal results. INTERPRETATION OF IMAGING: Imaging studies were interpreted by myself and read by radiology as per the imaging section of this note. The patient was advised to follow up with their PCP and/or specialist(s) for further outpatient management of any non-emergent abnormal findings. Chest x-ray shows moderate coronary calcification and slightly coarse interstitial markings throughout both lungs suggesting mild emphysema. No acute focal infiltrate or consolidation. No acute changes from previous imaging. CT scan of the abdomen and pelvis with IV contrast shows stable hepatic cystic lesions, stable simple cortical cysts in both kidneys, a resolved right pleural effusion, and no acute abnormalities or new interval abnormality since her prior study. No obvious cause of her bleeding. EXTERNAL RECORDS REVIEWED: I reviewed the patient's most recent admission as above. CHRONIC MEDICAL/SOCIAL CONDITIONS AFFECTING CARE: The patient is on aspirin and Plavix and has a complicated medical history including history of laryngeal cancer status post tracheostomy with chronic respiratory failure on 4 L by trach collar. Congestive heart failure, COPD, and chronic kidney disease. CONSULTATIONS: On-call hospitalist MDM SUMMARY: The patient was seen during a time of extreme volume and extreme acuity. Nursing triage protocols were initiated with IV lock, labs, and/or imaging studies conducted by protocol in the triage area. The patient was examined by myself once they were taken back to an exam room. The patient was recently admitted as above and has been on multiple antibiotics after discharge. The patient started with diarrhea last night and has had numerous episodes of diarrhea. Around 4 PM this evening she started with reddish appearing stools followed by bloody diarrhea. The patient had increased abdominal pain last evening, but still has mild abdominal pain. The patient's stools are brownish- red and significantly Hemoccult positive. The patient was gently hydrated with 250 mL normal saline solution bolus given her history of CHF, but she does appear dry on exam. She was given Tylenol 1000 mg IV for her discomfort. Rectal exam without obvious acute abnormalities, but her stool is watery brownish-red liquid that is Hemoccult positive. The patient's white blood cell count is elevated at 14.93. Her hemoglobin is normal at 12.0. Platelet count normal at 300. Coags are normal. Sodium low at 134, chloride low at 93, anion gap elevated at 14, BUN elevated at 42, creatinine elevated at 1.58, glucose 140, calcium elevated at 10.4, and alk phos elevated at 105. CMP otherwise without concerning abnormalities. High-sensitivity troponin elevated at 22.8 which is somewhat at baseline. Repeat high- sensitivity troponin is still pending. Stool C. difficile negative. Stool BioFire negative. Chest x-ray shows moderate coronary calcification and slightly coarse interstitial markings throughout both lungs suggesting mild emphysema. No acute focal infiltrate or consolidation. No acute changes from previous imaging. CT scan of the abdomen and pelvis with IV contrast shows stable hepatic cystic lesions, stable simple cortical cysts in both kidneys, a resolved right pleural effusion, and no acute abnormalities or new interval abnormality since her prior study. No obvious cause of her bleeding. I had a meaningful discussion about this patient with Dr. Singh who agrees with my assessment and the treatment plan. The exact cause of the patient's GI bleed is unknown at this time. The patient has an elevated white blood cell count and worsening renal functions. The patient is on Plavix and aspirin and has a complicated medical history. Therefore, it is recommended the patient be admitted for further evaluation and treatment. I spoke with the on-call hospitalist who agreed to admit the patient for further management. Please refer to their dictation for further details. The patient's care was transferred in stable condition. DIAGNOSIS: GI bleed Acute on chronic renal injury Tracheostomy dependent Past Med/Surg History Problem List (Updated 11/30/24 @ 04:43 by Mey Montes PA-C) Acute kidney injury superimposed on CKD (Acute) GI bleed (Acute) Pneumonia (Acute) Chronic hypercapnia Tracheobronchitis Thrush Diuretic-induced hypokalemia Labile hypertension Sinus tachycardia Heart failure, diastolic, with acute decompensation ASCVD (arteriosclerotic cardiovascular disease) CHF (congestive heart failure) (Acute) CHF exacerbation Chest pain, rule out acute myocardial infarction CAD (coronary artery disease) (Chronic) 2007 - LAD stent 2016 - LITTLE to mid LAD Hypertension (Chronic) Chronic hypoxic respiratory failure, on home oxygen therapy (Chronic) Hypothyroidism (Chronic) CAD (coronary artery disease) (Chronic) Peripheral arterial disease (Chronic) Subclavian artery stenosis, right (Chronic) Tracheostomy dependent (Chronic) Carotid stenosis (Chronic) Hyponatremia (Chronic) Medical History 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 MONTENEGRO 2016 - ABN STRESS TEST [facility] - NO STENTS/ANGIOPLASTY History of tonsillectomy and adenoidectomy Family History Daughter Family history of reaction to anesthesia SLOW TO WAKE Father Family hx of colon cancer Other Colon cancer No pertinent family history Social History Smoking Status: Former smoker Tobacco Type: Cigarettes Cigarettes Per Day: 1-2; Second Hand Exposure: No; Do You Dip or Chew Tobacco: No; Hx Alcohol Use: No Hx Substance Use: No Preferred Language: Polish Communication Ability: Effective Squad Leader Required: No Beliefs That Will Affect Care: None marital status: Current Living Situation: Alone Current Living Situation Comment: daughte visits daily current occupational status: retired Feels Safe at Home: Yes Assistive Devices: Nebulizer and Oxygen - Continuous Allergies Allergies Allergy/AdvReac Type Severity Reaction Status Date / Time bee venom protein (honey bee) Allergy Severe Anaphylaxis Verified 11/30/24 00:16 latex Allergy Intermediate Rash Verified 11/30/24 00:16 oxycodone [From Percocet] Allergy Intermediate PER Verified 11/30/24 00:16 GMG--GETS LOOPY. Home Meds Home Medications Medication Instructions Recorded Confirmed buspirone 5 mg tablet 5 mg PO BID Anxiety 10/31/19 11/30/24 aspirin 81 mg tablet,delayed 81 mg PO QAM 01/23/21 11/30/24 release sodium chloride 0.65 % nasal spray 2 spray NA DIRECTED PRN 03/24/21 11/30/24 aerosol (Saline Mist) Congestion budesonide 160 mcg-glycopyr 9 2 inh inhalation [facility] 12/17/22 11/30/24 mcg-formot 4.8 mcg/actuation HFA inhaler ([email or web address]) levothyroxine 75 mcg tablet 75 mcg PO DAILYBB 07/12/24 11/30/24 acetaminophen 160 mg/5 mL (5 mL) 650 mg PO Q6H PRN pain/fever 10/13/24 11/30/24 oral solution baclofen 10 mg tablet 0 mg PO BID 10/13/24 11/30/24 cyanocobalamin (vitamin B-12) 500 500 mcg PO DAILY 10/13/24 11/30/24 mcg tablet (Vitamin B-12) lidocaine 4 % topical patch 1 patch topical DAILY Pain 10/13/24 11/30/24 acetylcysteine 100 mg/mL (10 %) 4 ml inhalation AMHS 11/12/24 11/30/24 solution atorvastatin 40 mg tablet 40 mg PO HS 11/12/24 11/30/24 ipratropium 20 mcg-albuterol 100 2 puff inhalation Q6H PRN Wheezing 11/12/24 11/30/24 mcg/actuation mist for inhalation (Combivent Respimat) cephalexin 250 mg/5 mL oral 500 mg PO AMHS 11/30/24 11/30/24 suspension Previous Rx's Medication Instructions Recorded clopidogrel 75 mg tablet 75 mg PO QAM #30 tabs 07/14/24 ipratropium 0.5 mg-albuterol 3 mg 3 ml NEB Q2H PRN shortness of 10/22/24 (2.5 mg base)/3 mL nebulization breath or wheezing #180 mL soln sodium chloride 3 % for 3 ml inhalation Q6H PRN thickened 10/22/24 nebulization secretions 30 days #120 mL potassium chloride 40 mEq/15 mL 40 meq (15 mL) PO DAILY 30 days 11/04/24 oral liquid #450 mL isosorbide mononitrate 10 mg tablet 10 mg PO BID #60 tabs 11/17/24 lorazepam 0.5 mg tablet 0.5 mg sublingual Q8H PRN Anxiety 11/17/24 or insomnia #30 tabs metoprolol tartrate 50 mg tablet 75 mg (1.5 x 50 mg) PO BID #75 tabs 11/17/24 venlafaxine 75 mg tablet 75 mg PO TIDM #90 tabs 11/17/24 Results & Data (ED) Vital Signs Vital Signs - 24 hr 11/29/24 21:13 11/29/24 23:10 11/29/24 23:37 Temperature 36.8 C Temperature Source Temporal Artery Scan Pulse Rate 95 H 79 Pulse Rate [Apical] 79 Respiratory Rate 22 22 Respiratory Effort / Characteristics Non-Labored Spontaneous Non-Labored Respiratory Depth Normal Respiratory Pattern Regular Blood Pressure 112/74 Blood Pressure [Left Arm] 133/59 L Blood Pressure Mean 86 Blood Pressure Mean [Left Arm] 83 Blood Pressure Position [Left Arm] Lying Pulse Oximetry 96 99 Oxygen Delivery Method Trach Collar Trach Collar Oxygen Flow Rate 2 2 Sepsis Recent Fever Within 48 Hours No Sepsis New/Unexplained Change in Mental Status N/A Sepsis Action Taken by Nursing No Action Required 11/30/24 00:33 11/30/24 01:00 11/30/24 02:00 Temperature Temperature Source Pulse Rate Pulse Rate [Apical] 79 71 72 Respiratory Rate 20 18 16 Respiratory Effort / Characteristics Non-Labored Non-Labored Non-Labored Spontaneous Respiratory Depth Respiratory Pattern Blood Pressure Blood Pressure [Left Arm] 165/69 H 123/65 136/61 Blood Pressure Mean Blood Pressure Mean [Left Arm] 101 84 86 Blood Pressure Position [Left Arm] Lying Lying Lying Pulse Oximetry 100 99 100 Oxygen Delivery Method Trach Collar Trach Collar Trach Collar Oxygen Flow Rate 2 2 2 Sepsis Recent Fever Within 48 Hours Sepsis New/Unexplained Change in Mental Status Sepsis Action Taken by Nursing 11/30/24 03:00 11/30/24 04:00 Temperature Temperature Source Pulse Rate Pulse Rate [Apical] 74 72 Respiratory Rate 22 20 Respiratory Effort / Characteristics Non-Labored Non-Labored Respiratory Depth Respiratory Pattern Blood Pressure Blood Pressure [Left Arm] 132/60 139/61 Blood Pressure Mean Blood Pressure Mean [Left Arm] 84 87 Blood Pressure Position [Left Arm] Lying Pulse Oximetry 100 99 Oxygen Delivery Method Trach Collar Trach Collar Oxygen Flow Rate 2 2 Sepsis Recent Fever Within 48 Hours Sepsis New/Unexplained Change in Mental Status Sepsis Action Taken by Nursing Laboratory Data 11/29/24 22:57 11/29/24 22:57 Lab Results 11/29/24 11/29/24 11/29/24 Range/Units 22:32 22:57 23:10 WBC 14.93 H (4.8-10.8) K/ul RBC 4.10 L (4.20-5.40) M/uL Hgb 12.0 (12.0-16.0) g/dl Hct 36.8 L (37.0-47.0) % MCV 89.8 (80.0-100.0) fL MCH 29.3 (25.0-34.0) pg MCHC 32.6 (32.0-36.0) g/dL RDW Std Deviation 45.4 (36.4-46.3) fL RDW Coeff of Jair 13.9 (11.5-14.5) % Plt Count 300 (130-400) K/uL MPV 10.2 (9.4-12.4) fL PT 11.6 (9.0-12.0) Seconds INR 1.1 (0.9-1.1) APTT 25 (21-31) Seconds PTT Ratio 0.9 Sodium 134 L (136-145) mmol/L Potassium 4.3 (3.5-5.1) mmol/L Chloride 93 L (98-107) mmol/L Carbon Dioxide 27 (21-32) mmol/L Anion Gap 14 H (3-11) BUN 42 H (6-23) mg/dl Creatinine 1.58 H (0.6-1.2) mg/dl Est Cr Clr Drug Dosing 21.4 ml/min eGFR 34.79 BUN/Creatinine Ratio 26.6 H (10-20) Glucose 140 H (70-99(Fasting)) mg/dl Calcium 10.4 H (8.6-10.3) mg/dl Magnesium 2.1 (1.7-2.4) mg/dl Total Bilirubin 0.5 (0.2-1.0) mg/dl AST 24 (13-39) U/L ALT 13 (7-52) U/L Alkaline Phosphatase 105 H (34-104) U/L Troponin I High Sens 22.8 H (0-14) pg/ml Total Protein 8.4 H (6.0-8.3) gm/dl Albumin 3.8 (3.4-5.0) gm/dl Globulin 4.6 H (2.5-4.0) gm/dl Albumin/Globulin Ratio 0.8 L (0.9-2) POC Stool Occult Blood Positive A (Negative) Stl C. cayetanensis PCR Not Detected (NotDetected) Stool Rotavirus A PCR Not Detected (NotDetected) Stl Adenov F 40/41 PCR Not Detected (NotDetected) Stool Astrovirus (PCR) Not Detected (NotDetected) Stool Campylobacter PCR Not Detected (NotDetected) Stl C. diff Tox B Gene Negative Cdiff Gene (Neg) Stl C. diff [id number] NEGATIVE Stool Cryptosporidium PCR Not Detected (NotDetected) Stl E.coli Shiga Tox PCR Not Detected (NotDetected) Stl Enterotoxigenic E PCR Not Detected (NotDetected) Stool EPEC (PCR) Not Detected (NotDetected) Stool EAEC (PCR) Not Detected (NotDetected) Stl E. histolytica PCR Not Detected (NotDetected) Stool Giardia Lamblia PCR Not Detected (NotDetected) Stool Salmonella PCR Not Detected (NotDetected) Stool Sapovirus (PCR) Not Detected (NotDetected) Stl P. shigelloides PCR Not Detected (NotDetected) Stl Shigella/EIEC PCR Not Detected (NotDetected) St Y.enterocolitica PCR Not Detected (NotDetected) Stool Vibrio (PCR) Not Detected (NotDetected) Stl Vibrio cholerae PCR Not Detected (NotDetected) Stl Norovirus GI/GII PCR Not Detected (NotDetected) Blood Type O Positive Antibody Screen NEGATIVE Administered Medications Sodium Chloride (Nss) 1,000 mls @ 80 mls/hr IV .[id number] Stop: 11/30/24 15:59 Last Admin: 11/30/24 04:10 Dose: 80 mls/hr Documented By: CDM Discontinued Medications Sodium Chloride (Nss) 250 mls @ 999 mls/hr IV .Q16M ONE Stop: 11/29/24 22:46 Last Infusion: 11/29/24 23:17 Dose: Infused Documented By: Admin: 11/29/24 22:58 Dose: 999 mls/hr Documented By: NICKI Acetaminophen (Ofirmev) 1,000 mg in 100 mls @ 400 mls/hr IV NOW STA Stop: 11/29/24 22:45 Last Infusion: 11/29/24 23:17 Dose: Infused Documented By: Admin: 11/29/24 22:58 Dose: 400 mls/hr Documented By: NICKI Pantoprazole Sodium 80 mg/ (Dextrose) 120 mls @ 480 mls/hr IV ONE STA Stop: 11/30/24 03:36 Last Admin: 11/30/24 04:10 Dose: 480 mls/hr Documented By: JIA Ioversol (Optiray 320 100ml) 93 ml IV ONCE ONE Stop: 11/30/24 00:22 Last Admin: 11/30/24 00:21 Dose: 93 ml Documented By: SAYRA Imaging Data Radiologist's Impression: Abdomen/Pelvis CT 11/29/24 22:31 EXAM: CT abd pelvis IV con only CLINICAL HISTORY: Abdominal pain, bloody diarrhea TECHNIQUE: Contiguous axial images were obtained from the level of the diaphragm to the pubic symphysis with intravenous contrast. Coronal and sagittal reconstructions were likewise performed and indicated to increase the sensitivity for detecting clinically relevant pathology. If IV contrast material had not been administered, the likelihood of detecting abnormalities relevant to the patient's condition would have been substantially decreased. The CT scan was performed according to ALARA (as low as reasonably achievable). COMPARISON: 23:57:00 SUSTAINABILITY COORDINATOR. FINDINGS: The visualized lung bases are clear. The liver is normal in size and attenuation. A tiny hypodense focus is noted involving the left lobe of the liver, which appears benign and could represent a cyst. There is no intrahepatic or extrahepatic biliary ductal dilatation. The hepatic vasculature is patent. The gallbladder is present. The spleen, pancreas, and adrenal glands are unremarkable. The kidneys are normal in size and attenuation. There is no hydronephrosis or perinephric fat stranding. No renal calculi or renal masses are identified. A few simple cortical cysts are noted in both kidneys. The ureters are normal in caliber and no ureteral calculi are seen. The bladder is normal in contour. The pelvic viscera are unremarkable. No focal or diffuse bowel wall thickening or evidence of bowel obstruction is identified. No imaging evidence of appendicitis. The abdominal and pelvic vasculature is patent. No adenopathy or fluid collections are seen. No aggressive-appearing osseous lesions are identified. Diffuse atherosclerotic calcification is noted involving the aorta and iliac arteries, which is stable. IMPRESSION: Tiny hepatic cystic lesion - stable. A few simple cortical cysts are noted in both kidneys - stable. Right pleural effusion is resolved. No other new interval abnormality since prior study. Electronically signed by Hunter Garcia 11-30-2024 01:55 AM Chest X-Ray 11/29/24 22:34 Exam(s): XR CXR 1 VIEW EXAM: XR Chest, 1 View CLINICAL HISTORY: Reason for exam: Bloody diarrhea. TECHNIQUE: Frontal view of the chest. COMPARISON: 11/12/2024 FINDINGS: Lungs: Calcified plaque in the apical pleura bilaterally, unchanged. Slightly coarse interstitial markings throughout both lungs suggesting mild emphysema. No acute focal infiltrate or consolidation is seen. Pleural space: Unremarkable. No pneumothorax. Heart: The cardiac silhouette is nonenlarged. Moderate coronary calcification is present. Mediastinum: Unremarkable. Normal mediastinal contour. Bones/joints: There are several old healed right-sided rib fractures. No acute rib fracture is seen. Vasculature: The aortic arch is mildly calcified but appears nondilated. Tubes, lines and devices: There is a tracheostomy in standard position. Upper abdomen: Unremarkable as visualized. No pneumoperitoneum under the diaphragm. IMPRESSION: 1. The cardiac silhouette is nonenlarged. Moderate coronary calcification is present. 2. Slightly coarse interstitial markings throughout both lungs suggesting mild emphysema. No acute focal infiltrate or consolidation is seen. Electronically signed by: Jose Angel Anaya MD 11/30/24 00:28 AM Discharge Plan Visit Data Chief Complaint: GI Bleed Stated Complaint: BLOODY DIARRHEA ED Provider: David Singh ED Midlevel Provider: Mey Montes Discharge Problem: GI bleed, Acute kidney injury superimposed on CKD, Tracheostomy dependent Patient Disposition: Admitted As Inpatient Condition: Fair Forms Stand Alone Forms: My [facility] Prescriptions Prescriptions: No Action buspirone 5 mg tablet 5 mg PO BID Saline Mist 0.65 % aerosol,spray 2 spray NA DIRECTED PRN (Reason: Congestion) Breztri Aerosphere 160-9-4.8 mcg/actuation HFA aerosol inhaler 2 inh INHALATION [facility] aspirin 81 mg Tablet,Delayed Release (Dr/Ec) 81 mg PO QAM ipratropium-albuterol 0.5 mg-3 mg(2.5 mg base)/3 mL Solution For Nebulization 3 ml NEB Q2H PRN (Reason: shortness of breath or wheezing) Qty: 180 0RF sodium chloride 3 % Solution For Nebulization 3 ml INHALATION Q6H PRN (Reason: thickened secretions) 30 Days Qty: 120 0RF levothyroxine 75 mcg tablet 75 mcg PO DAILYBB clopidogrel 75 mg Tablet 75 mg PO QAM Qty: 30 0RF lidocaine 4 % Adhesive Patch,Medicated 1 patch TOPICAL DAILY Rx Instructions: ON BACK FOR 12 HR. THEN REMOVE cyanocobalamin (vitamin B-12) [Vitamin B-12] 500 mcg Tablet 500 mcg PO DAILY baclofen 10 mg Tablet 0 mg PO BID Patient Comments: PRESCRIBED 10MG PO BID; PT TAKES 10MG DAILY PRN acetaminophen 160 mg/5 mL (5 mL) Solution 650 mg PO Q6H PRN (Reason: pain/fever) Patient Comments: PT HAS HARD TIME SWALLOWING PILLS potassium chloride 40 mEq/15 mL liquid 40 meq PO DAILY 30 Days Qty: 450 0RF acetylcysteine 100 mg/mL (10 %) solution 4 ml inhalation [facility] Combivent Respimat 20-100 mcg/actuation mist 2 puff INHALATION Q6H PRN (Reason: Wheezing) Rx Instructions: WITH SPACER atorvastatin 40 mg tablet 40 mg PO HS isosorbide mononitrate 10 mg tablet 10 mg PO BID Qty: 60 0RF metoprolol tartrate 50 mg tablet 75 mg PO BID Qty: 75 0RF Rx Instructions: Take 75 mg p.o. every morning and 50 mg p.o. nightly lorazepam 0.5 mg Tablet 0.5 mg sublingual Q8H PRN (Reason: Anxiety or insomnia) Qty: 30 0RF venlafaxine 75 mg tablet 75 mg PO TIDM Qty: 90 0RF Rx Instructions: take with food cephalexin 250 mg/5 mL suspension for reconstitution 500 mg PO [facility] Rx Instructions: ordered 11/24/24 for 10 days Referrals Referrals: Paola Wilson MD [Primary Care Provider] - Discharge Problem: GI bleed Qualifiers: GI bleed type/associated pathology: unspecified gastrointestinal hemorrhage type Qualified Code(s): K92.2 - Gastrointestinal hemorrhage, unspecified
[2024-11-29] MEDS: ACETAMINOPHEN 1,000 MG/100 ML VIAL IV STA (22:58)
[2024-11-29] MEDS: SODIUM CHLORIDE 0.9% 250 ML IV ONE (22:58)
[2024-11-29 23:12] LABS: Hematocrit (blood only) 36.8 % (37.0-47.0); Hemoglobin 12.0 g/dl (12.0-16.0); Mean Corpuscular Hemoglobin 29.3 pg (25.0-34.0); Mean Corpuscular Volume 89.8 fL (80.0-100.0); Platelet Count 300 K/uL (130-400); RDW Standard Deviation 45.4 fL (36.4-46.3); Red Blood Count 4.10 M/uL (4.20-5.40); White Blood Count 14.93 K/ul (4.8-10.8)
[2024-11-29 23:29] LABS: Alanine Aminotransferase 13.0 U/L (7-52); Albumin Globulin Ratio 0.8 (0.9-2); Albumin Level 3.8 gm/dl (3.4-5.0); Alkaline Phosphatase 105.0 U/L (34-104); Anion Gap 14.0 (3-11); Bilirubin,Total 0.5 mg/dl (0.2-1.0); Blood Urea Nitrogen 42.0 mg/dl (6-23); Calcium 10.4 mg/dl (8.6-10.3); Carbon Dioxide 27.0 mmol/L (21-32); Chloride 93.0 mmol/L (98-107); Creatinine Clr Calc Pharmacy 21.4 ml/min; Globulin 4.6 gm/dl (2.5-4.0); Glucose 140.0 mg/dl (70-99(Fasting)); Magnesium 2.1 mg/dl (1.7-2.4); Potassium 4.3 mmol/L (3.5-5.1); Sodium 134.0 mmol/L (136-145); Total Protein 8.4 gm/dl (6.0-8.3)
[2024-11-29 23:47] LABS: INR 1.1 (0.9-1.1); Partial Thromboplastin Time 25 Seconds (21-31); Prothrombin Time 11.6 Seconds (9.0-12.0)
[2024-11-30] MEDS: OPTIRAY 320 100ml IV ONE (00:21)
--- NOTE | 2024-11-30 00:29 | XRay Report ---
Exam(s): XR CXR 1 VIEW EXAM: XR Chest, 1 View CLINICAL HISTORY: Reason for exam: Bloody diarrhea. TECHNIQUE: Frontal view of the chest. COMPARISON: 11/12/2024 FINDINGS: Lungs: Calcified plaque in the apical pleura bilaterally, unchanged. Slightly coarse interstitial markings throughout both lungs suggesting mild emphysema. No acute focal infiltrate or consolidation is seen. Pleural space: Unremarkable. No pneumothorax. Heart: The cardiac silhouette is nonenlarged. Moderate coronary calcification is present. Mediastinum: Unremarkable. Normal mediastinal contour. Bones/joints: There are several old healed right-sided rib fractures. No acute rib fracture is seen. Vasculature: The aortic arch is mildly calcified but appears nondilated. Tubes, lines and devices: There is a tracheostomy in standard position. Upper abdomen: Unremarkable as visualized. No pneumoperitoneum under the diaphragm. IMPRESSION: 1. The cardiac silhouette is nonenlarged. Moderate coronary calcification is present. 2. Slightly coarse interstitial markings throughout both lungs suggesting mild emphysema. No acute focal infiltrate or consolidation is seen. Electronically signed by: Jose Angel Anaya MD 11/30/24 00:28 AM
[2024-11-30 01:13] LABS: Cdiff Toxin B Gene (2yr or >) Negative Cdiff Gene (Neg)
--- NOTE | 2024-11-30 01:17 | Emergency Department Note ---
ED Visit Note I was consulted in regards to the patient's presentation and plan of care by the Advanced Practice Provider. I engaged in a detailed/meaningful discussion with the Advanced Practice Provider in regards to this patient's workup and plan of care. I performed a substantiative portion of the medical decision making following discussion with the Advanced Practice Provider. Please see the Advanced Practice Provider's separate documentation for full details of the patient's visit. I agree with the assessment and plan of GAVIOTA Adorno, DO Emergency Medicine .
[2024-11-30 01:46] LABS: Adenovirus F 40/41 PCR Not Detected (NotDetected); Campylobacter PCR Not Detected (NotDetected); Enteroaggregative E.coli(EAEC) Not Detected (NotDetected); Shiga-like Toxin E.coli (STEC) Not Detected (NotDetected); Vibrio species PCR Not Detected (NotDetected)
--- NOTE | 2024-11-30 01:55 | CT Scan Report ---
EXAM: CT abd pelvis IV con only CLINICAL HISTORY: Abdominal pain, bloody diarrhea TECHNIQUE: Contiguous axial images were obtained from the level of the diaphragm to the pubic symphysis with intravenous contrast. Coronal and sagittal reconstructions were likewise performed and indicated to increase the sensitivity for detecting clinically relevant pathology. If IV contrast material had not been administered, the likelihood of detecting abnormalities relevant to the patient's condition would have been substantially decreased. The CT scan was performed according to ALARA (as low as reasonably achievable). 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 FINDINGS: The visualized lung bases are clear. The liver is normal in size and attenuation. A tiny hypodense focus is noted involving the left lobe of the liver, which appears benign and could represent a cyst. There is no intrahepatic or extrahepatic biliary ductal dilatation. The hepatic vasculature is patent. The gallbladder is present. The spleen, pancreas, and adrenal glands are unremarkable. The kidneys are normal in size and attenuation. There is no hydronephrosis or perinephric fat stranding. No renal calculi or renal masses are identified. A few simple cortical cysts are noted in both kidneys. The ureters are normal in caliber and no ureteral calculi are seen. The bladder is normal in contour. The pelvic viscera are unremarkable. No focal or diffuse bowel wall thickening or evidence of bowel obstruction is identified. No imaging evidence of appendicitis. The abdominal and pelvic vasculature is patent. No adenopathy or fluid collections are seen. No aggressive-appearing osseous lesions are identified. Diffuse atherosclerotic calcification is noted involving the aorta and iliac arteries, which is stable. IMPRESSION: Tiny hepatic cystic lesion - stable. A few simple cortical cysts are noted in both kidneys - stable. Right pleural effusion is resolved. No other new interval abnormality since prior study. Electronically signed by Hunter Garcia 11-30-2024 01:55 AM
[2024-11-30] MEDS ORDERED: ONDANSETRON INJ 2 MG/ML 2 ML VIAL IV PRN (03:24)
--- NOTE | 2024-11-30 03:34 | History & Physical Report ---
Date of Service November 30, 2024 Assessment & Plan (1) GI bleed: (2) Tracheostomy dependent: (3) Chronic hypoxic respiratory failure, on home oxygen therapy: (4) Acute kidney injury superimposed on CKD: Plan The patient is a 69-year-old female with past medical history including pneumonia, chronic hypercapnia, presence of tracheostomy, diuretic induced hypokalemia, labile hypertension, ASCVD, HFpEF with exacerbations, CAD, hypertension, chronic hypoxic respiratory failure on home oxygen therapy, hypothyroidism, right subclavian artery stenosis, PAD, carotid stenosis, and hyponatremia. The patient presents to the emergency department, with her daughter, due to the development of maroon-colored stools over the past 2 days, and then was noted to have bright red blood on toilet paper earlier this evening. She was most recently admitted to [facility] from 11/12-11/17/2024 for pneumonia and COPD exacerbation. Her daughter reports that her stools had been mushy since 1 day after leaving the hospital, and that became more frequent as noted. She takes aspirin and Plavix as directed. She has not had any issues with bleeding in the past. From the ED she received a 250 cc bolus of normal saline, and Tylenol 1 g IV. Troponin was 22.8, creatinine 1.58 with base 0.63, and hemoglobin 12.0. She does report some intermittent dry heaving. Stool PCR was only positive for Hemoccult positive but he chest x-ray showed emphysema. CT abdomen pelvis showed improved the right pleural effusion. She was then referred for evaluation for admission to the [facility] hospitalist service. GI bleed/anemia- Hold aspirin and Plavix Full liquid diet as tolerated Pantoprazole 80 mg IV now, then 40 mg IV twice daily H&H every 6 hours Zofran 4 mg IV every 6 hours as needed NSS at 80 mL/h x 1 L Stool PCR only positive for Hemoccult positivity Consult gastroenterology Elevated troponin/CAD/hypertension/HFpEF- The patient will be admitted to telemetry for serial cardiac enzymes, serial EKG's, cardiac rhythm monitoring Troponin 22.8 on admission with follow-up pending. Troponins ranged from 15.2 up to 71.8 on several occasions. Most recent echocardiogram on 10/21/2024 with ejection fraction 65-70%. Likely supply/demand mismatch For now, hold isosorbide mononitrate, metoprolol to tartrate Tracheostomy dependent/chronic hypercapnia/COPD/oxygen dependency- Continue tracheostomy care Continue breast tree Aerosphere or substitute, Combivent Respimat, and DuoNebs every 2 hours as needed Continue saline mist sprays, and acetylcysteine inhalation a.m. and at bedtime Hyperlipidemia- Continue atorvastatin at bedtime Anxiety and depression- On buspirone, lorazepam, and venlafaxine as outpatient History of Present Illness Chief Complaint: The patient presents to the emergency department, with her daughter, due to the development of maroon-colored stools over the past 2 days, and then was noted to have bright red blood on toilet paper earlier this evening. She was most recently admitted to [facility] from 11/12-11/17/2024 for pneumonia and COPD exacerbation. Her daughter reports that her stools had been mushy since 1 day after leaving the hospital, and that became more frequent as noted. She takes aspirin and Plavix as directed. She has not had any issues with bleeding in the past. Primary Care Provider: Paola Wilson MD The patient is a 69-year-old female with past medical history including pneumonia, chronic hypercapnia, presence of tracheostomy, diuretic induced hypokalemia, labile hypertension, ASCVD, HFpEF with exacerbations, CAD, hypertension, chronic hypoxic respiratory failure on home oxygen therapy, hypothyroidism, right subclavian artery stenosis, PAD, carotid stenosis, and hyponatremia. The patient presents to the emergency department, with her daughter, due to the development of maroon-colored stools over the past 2 days, and then was noted to have bright red blood on toilet paper earlier this evening. She was most recently admitted to [facility] from 11/12-11/17/2024 for pneumonia and COPD exacerbation. Her daughter reports that her stools had been mushy since 1 day after leaving the hospital, and that became more frequent as noted. She takes aspirin and Plavix as directed. She has not had any issues with bleeding in the past. From the ED she received a 250 cc bolus of normal saline, and Tylenol 1 g IV. Troponin was 22.8, creatinine 1.58 with base 0.63, and hemoglobin 12.0. Stool PCR was only positive for Hemoccult positive but he chest x-ray showed emphysema. CT abdomen pelvis showed improved the right pleural effusion. She was then referred for evaluation for admission to the [facility] Hospitalist service. Allergies Allergy/AdvReac Type Severity Reaction Status Date / Time bee venom protein (honey bee) Allergy Severe Anaphylaxis Verified 11/30/24 00:16 latex Allergy Intermediate Rash Verified 11/30/24 00:16 oxycodone [From Percocet] Allergy Intermediate PER Verified 11/30/24 00:16 GMG--GETS LOOPY. Home Medications Medication Instructions Recorded Confirmed Type buspirone 5 mg tablet 5 mg PO BID Anxiety 10/31/19 11/30/24 History aspirin 81 mg tablet,delayed 81 mg PO QAM 01/23/21 11/30/24 History release sodium chloride 0.65 % nasal spray 2 spray NA DIRECTED PRN 03/24/21 11/30/24 History aerosol (Saline Mist) Congestion budesonide 160 mcg-glycopyr 9 2 inh inhalation [facility] 12/17/22 11/30/24 History mcg-formot 4.8 mcg/actuation HFA inhaler ([employer]) levothyroxine 75 mcg tablet 75 mcg PO DAILYBB 07/12/24 11/30/24 History clopidogrel 75 mg tablet 75 mg PO QAM #30 tabs 07/14/24 11/30/24 Rx acetaminophen 160 mg/5 mL (5 mL) 650 mg PO Q6H PRN pain/fever 10/13/24 11/30/24 History oral solution baclofen 10 mg tablet 0 mg PO BID 10/13/24 11/30/24 History cyanocobalamin (vitamin B-12) 500 500 mcg PO DAILY 10/13/24 11/30/24 History mcg tablet (Vitamin B-12) lidocaine 4 % topical patch 1 patch topical DAILY Pain 10/13/24 11/30/24 History ipratropium 0.5 mg-albuterol 3 mg 3 ml NEB Q2H PRN shortness of 10/22/24 11/30/24 Rx (2.5 mg base)/3 mL nebulization breath or wheezing #180 mL soln sodium chloride 3 % for 3 ml inhalation Q6H PRN thickened 10/22/24 11/30/24 Rx nebulization secretions 30 days #120 mL potassium chloride 40 mEq/15 mL 40 meq (15 mL) PO DAILY 30 days 11/04/24 11/30/24 Rx oral liquid #450 mL acetylcysteine 100 mg/mL (10 %) 4 ml inhalation [facility] 11/12/24 11/30/24 History solution atorvastatin 40 mg tablet 40 mg PO HS 11/12/24 11/30/24 History ipratropium 20 mcg-albuterol 100 2 puff inhalation Q6H PRN Wheezing 11/12/24 11/30/24 History mcg/actuation mist for inhalation (Combivent Respimat) isosorbide mononitrate 10 mg tablet 10 mg PO BID #60 tabs 11/17/24 11/30/24 Rx lorazepam 0.5 mg tablet 0.5 mg sublingual Q8H PRN Anxiety 11/17/24 11/30/24 Rx or insomnia #30 tabs metoprolol tartrate 50 mg tablet 75 mg (1.5 x 50 mg) PO BID #75 tabs 11/17/24 0 11/30/24 Rx venlafaxine 75 mg tablet 75 mg PO TIDM #90 tabs 11/17/24 11/30/24 Rx cephalexin 250 mg/5 mL oral 500 mg PO [facility] 11/30/24 11/30/24 History suspension Past Med/Surg History Problem List (Updated 11/30/24 @ 04:25 by Maurisio Zaidi MD) Acute kidney injury superimposed on CKD GI bleed Pneumonia (Acute) Chronic hypercapnia Tracheobronchitis Thrush Diuretic-induced hypokalemia Labile hypertension Sinus tachycardia Heart failure, diastolic, with acute decompensation ASCVD (arteriosclerotic cardiovascular disease) CHF (congestive heart failure) (Acute) CHF exacerbation Chest pain, rule out acute myocardial infarction CAD (coronary artery disease) (Chronic) 2007 - LAD stent 2015 - LITTLE to mid LAD Hypertension (Chronic) Chronic hypoxic respiratory failure, on home oxygen therapy (Chronic) Hypothyroidism (Chronic) CAD (coronary artery disease) (Chronic) Peripheral arterial disease (Chronic) Subclavian artery stenosis, right (Chronic) Tracheostomy dependent (Chronic) Carotid stenosis (Chronic) Hyponatremia (Chronic) Medical History 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: No Beliefs That Will Affect Care: None marital status: Current Living Situation: Alone Current Living Situation Comment: norma visits daily current occupational status: retired Feels Safe at Home: Yes Assistive Devices: Nebulizer and Oxygen - Continuous Review of Systems Review of Systems: The patient denies chest pain, palpitations, lower extremity swelling, fevers, chills, sweats, vomiting, diarrhea , constipation, abdominal pain, pelvic pain, blood in urine or stool, dysuria, urinary frequency or urgency, lightheadedness, dizziness, headache, memory loss, loss of consciousness, rash, abnormal bruising or bleeding, imbalance, focal weakness, numbness or tingling in arms or legs, generalized arthralgias or myalgias, back or neck pain, or night sweats. The review of systems is otherwise negative other than for that already noted above, and at least 10 systems have been reviewed. Physical Exam Physical Exam: The patient is awake, alert and oriented 3, well developed and well nourished, normocephalic and atraumatic, lying in bed and in no acute distress. HEENT--PERRL, EOMI, mucous membranes and oropharynx mildly dry. Neck--supple. Tracheostomy appears normal. No JVD. No bruits. no adenopathy. Heart--normal S1 and S2. No murmurs, rubs or gallops. Lungs--few coarse breath sounds right greater than left. No respiratory distress, no accessory muscle use. Abdomen--normal bowel sounds and soft. Nontender. Nondistended, no hernias or masses, no organomegaly. Extremities--no cyanosis or clubbing. No edema. There are good distal pulses b/l. Dermatologic--normal skin turgor, normal color, no abnormal lymph nodes, no rash. Neurologic--cranial nerves II through XII grossly intact. Rheumatologic--normal range of motion. Psychiatric--normal affect. Results & Data Results & Data Vital Signs (Past 12 Hours) Vital Signs Temp Pulse Pulse Resp BP BP Pulse Ox 11/30/24 03:00 74 22 132/60 100 11/30/24 02:00 72 16 136/61 100 11/30/24 01:00 71 18 123/65 99 11/30/24 00:33 79 20 165/69 H 100 11/29/24 23:37 79 11/29/24 23:10 79 22 133/59 L 99 11/29/24 21:13 36.8 C 95 H 22 112/74 96 O2 Del Method O2 Flow Rate 11/30/24 03:00 Trach Collar 2 11/30/24 02:00 Trach Collar 2 11/30/24 01:00 Trach Collar 2 11/30/24 00:33 Trach Collar 2 11/29/24 23:37 11/29/24 23:10 Trach Collar 2 11/29/24 21:13 Trach Collar 2 Laboratory Results Laboratory Results WBC 14.93 K/ul (4.8-10.8) H 11/29/24 22:57 RBC 4.10 M/uL (4.20-5.40) L 11/29/24 22:57 Hgb 12.0 g/dl (12.0-16.0) 11/29/24 22:57 Hct 36.8 % (37.0-47.0) L 11/29/24 22:57 MCV 89.8 fL (80.0-100.0) 11/29/24 22:57 MCH 29.3 pg (25.0-34.0) 11/29/24 22:57 MCHC 32.6 g/dL (32.0-36.0) 11/29/24 22:57 RDW Std Deviation 45.4 fL (36.4-46.3) 11/29/24 22:57 RDW Coeff of Jair 13.9 % (11.5-14.5) 11/29/24 22:57 Plt Count 300 K/uL (130-400) 11/29/24 22:57 MPV 10.2 fL (9.4-12.4) 11/29/24 22:57 PT 11.6 Seconds (9.0-12.0) 11/29/24 22:57 INR 1.1 (0.9-1.1) 11/29/24 22:57 APTT 25 Seconds (21-31) 11/29/24 22:57 PTT Ratio 0.9 11/29/24 22:57 Sodium 134 mmol/L (136-145) L 11/29/24 22:57 Potassium 4.3 mmol/L (3.5-5.1) 11/29/24 22:57 Chloride 93 mmol/L (98-107) L 11/29/24 22:57 Carbon Dioxide 27 mmol/L (21-32) 11/29/24 22:57 Anion Gap 14 (3-11) H 11/29/24 22:57 BUN 42 mg/dl (6-23) H 11/29/24 22:57 Creatinine 1.58 mg/dl (0.6-1.2) H 11/29/24 22:57 Est Cr Clr Drug Dosing 21.4 ml/min 11/29/24 22:57 eGFR 34.79 11/29/24 22:57 BUN/Creatinine Ratio 26.6 (10-20) H 11/29/24 22:57 Glucose 140 mg/dl (70-99(Fasting)) H 11/29/24 22:57 Calcium 10.4 mg/dl (8.6-10.3) H 11/29/24 22:57 Magnesium 2.1 mg/dl (1.7-2.4) 11/29/24 22:57 Total Bilirubin 0.5 mg/dl (0.2-1.0) 11/29/24 22:57 AST 24 U/L (13-39) 11/29/24 22:57 ALT 13 U/L (7-52) 11/29/24 22:57 Alkaline Phosphatase 105 U/L (34-104) H 11/29/24 22:57 Troponin I High Sens 22.8 pg/ml (0-14) H 11/29/24 22:57 Total Protein 8.4 gm/dl (6.0-8.3) H 11/29/24 22:57 Albumin 3.8 gm/dl (3.4-5.0) 11/29/24 22:57 Globulin 4.6 gm/dl (2.5-4.0) H 11/29/24 22:57 Albumin/Globulin Ratio 0.8 (0.9-2) L 11/29/24 22:57 POC Stool Occult Blood Positive (Negative) A 11/29/24 22:32 Stl C. cayetanensis PCR Not Detected (NotDetected) 11/29/24 23:10 Stool Rotavirus A PCR Not Detected (NotDetected) 11/29/24 23:10 Stl Adenov F 40/41 PCR Not Detected (NotDetected) 11/29/24 23:10 Stool Astrovirus (PCR) Not Detected (NotDetected) 11/29/24 23:10 Stool Campylobacter PCR Not Detected (NotDetected) 11/29/24 23:10 Stl C. diff Tox B Gene Negative Cdiff Gene (Neg) 11/29/24 23:10 Stl C. diff [id number] NEGATIVE 11/29/24 23:10 Stool Cryptosporidium PCR Not Detected (NotDetected) 11/29/24 23:10 Stl E.coli Shiga Tox PCR Not Detected (NotDetected) 11/29/24 23:10 Stl Enterotoxigenic E PCR Not Detected (NotDetected) 11/29/24 23:10 Stool EPEC (PCR) Not Detected (NotDetected) 11/29/24 23:10 Stool EAEC (PCR) Not Detected (NotDetected) 11/29/24 23:10 Stl E. histolytica PCR Not Detected (NotDetected) 11/29/24 23:10 Stool Giardia Lamblia PCR Not Detected (NotDetected) 11/29/24 23:10 Stool Salmonella PCR Not Detected (NotDetected) 11/29/24 23:10 Stool Sapovirus (PCR) Not Detected (NotDetected) 11/29/24 23:10 Stl P. shigelloides PCR Not Detected (NotDetected) 11/29/24 23:10 Stl Shigella/EIEC PCR Not Detected (NotDetected) 11/29/24 23:10 St Y.enterocolitica PCR Not Detected (NotDetected) 11/29/24 23:10 Stool Vibrio (PCR) Not Detected (NotDetected) 11/29/24 23:10 Stl Vibrio cholerae PCR Not Detected (NotDetected) 11/29/24 23:10 Stl Norovirus GI/GII PCR Not Detected (NotDetected) 11/29/24 23:10 Blood Type O Positive 11/29/24 22:57 Antibody Screen NEGATIVE 11/29/24 22:57 Impressions Abdomen/Pelvis CT 11/29/24 22:31 EXAM: CT abd pelvis IV con only CLINICAL HISTORY: Abdominal pain, bloody diarrhea TECHNIQUE: Contiguous axial images were obtained from the level of the diaphragm to the pubic symphysis with intravenous contrast. Coronal and sagittal reconstructions were likewise performed and indicated to increase the sensitivity for detecting clinically relevant pathology. If IV contrast material had not been administered, the likelihood of detecting abnormalities relevant to the patient's condition would have been substantially decreased. The CT scan was performed according to ALARA (as low as reasonably achievable). 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 FINDINGS: The visualized lung bases are clear. The liver is normal in size and attenuation. A tiny hypodense focus is noted involving the left lobe of the liver, which appears benign and could represent a cyst. There is no intrahepatic or extrahepatic biliary ductal dilatation. The hepatic vasculature is patent. The gallbladder is present. The spleen, pancreas, and adrenal glands are unremarkable. The kidneys are normal in size and attenuation. There is no hydronephrosis or perinephric fat stranding. No renal calculi or renal masses are identified. A few simple cortical cysts are noted in both kidneys. The ureters are normal in caliber and no ureteral calculi are seen. The bladder is normal in contour. The pelvic viscera are unremarkable. No focal or diffuse bowel wall thickening or evidence of bowel obstruction is identified. No imaging evidence of appendicitis. The abdominal and pelvic vasculature is patent. No adenopathy or fluid collections are seen. No aggressive-appearing osseous lesions are identified. Diffuse atherosclerotic calcification is noted involving the aorta and iliac arteries, which is stable. IMPRESSION: Tiny hepatic cystic lesion - stable. A few simple cortical cysts are noted in both kidneys - stable. Right pleural effusion is resolved. No other new interval abnormality since prior study. Electronically signed by Hunter Garcia 11-30-2024 01:55 AM Chest X-Ray 11/29/24 22:34 Exam(s): XR CXR 1 VIEW EXAM: XR Chest, 1 View CLINICAL HISTORY: Reason for exam: Bloody diarrhea. TECHNIQUE: Frontal view of the chest. COMPARISON: 11/12/2024 FINDINGS: Lungs: Calcified plaque in the apical pleura bilaterally, unchanged. Slightly coarse interstitial markings throughout both lungs suggesting mild emphysema. No acute focal infiltrate or consolidation is seen. Pleural space: Unremarkable. No pneumothorax. Heart: The cardiac silhouette is nonenlarged. Moderate coronary calcification is present. Mediastinum: Unremarkable. Normal mediastinal contour. Bones/joints: There are several old healed right-sided rib fractures. No acute rib fracture is seen. Vasculature: The aortic arch is mildly calcified but appears nondilated. Tubes, lines and devices: There is a tracheostomy in standard position. Upper abdomen: Unremarkable as visualized. No pneumoperitoneum under the diaphragm. IMPRESSION: 1. The cardiac silhouette is nonenlarged. Moderate coronary calcification is present. 2. Slightly coarse interstitial markings throughout both lungs suggesting mild emphysema. No acute focal infiltrate or consolidation is seen. Electronically signed by: Jose Angel Anaya MD 11/30/24 00:28 AM Code Status & VTE Plan Code Status Full code VTE Prophylaxis Plan VTE Prophylaxis will be ordered: Yes PG Care Time/CCT Total # of Minutes Spent Total Time Spent with Patient: Total time spent is greater than 50% in coordination of care (as documented) at patient's floor/unit and/or counseling patient: Coding Level of Care Code 89628 INT INP/OBS CARE 3/75MIN Diagnoses GI bleed K92.2 Tracheostomy dependent Z93.0 Chronic hypoxic respiratory failure, on home oxygen therapy J96.11; Z99.81 Acute kidney injury superimposed on CKD N17.9; N18.9
[2024-11-30] MEDS: SODIUM CHLORIDE 0.9% 1,000 ML IV SCH (04:10)
[2024-11-30] MEDS ORDERED: IPRATROPIUM BROMIDE/ALBUTEROL respimat INH INH PRN (04:49)
[2024-11-30] MEDS ORDERED: SODIUM CHLORIDE 0.65% NA SOLN 45 ML (OCEAN) PRN (04:49)
[2024-11-30] MEDS ORDERED: ACETAMINOPHEN 325 MG TAB PO PRN (05:19)
[2024-11-30] MEDS ORDERED: ALBUTEROL HFA 8 GM INHALER INH PRN (06:04)
[2024-11-30] MEDS: LEVOTHYROXINE SODIUM 75 MCG TABLET PO SCH (06:36)
[2024-11-30] MEDS: ACETYLCYSTEINE 10% INHAL SOLN 4 ML **DISPENSED BY RESP. INH SCH (08:01)
[2024-11-30] MEDS: ALBUT/IPRATROP 3MG/0.5MG NEB 3 ML VIAL NEB PRN (08:02)
--- NOTE | 2024-11-30 08:26 | Gastrointestinal Consultation ---
Date of Consultation November 30, 2024 Assessment & Plan (1) GI bleed: 69-year-old female with past medical history including pneumonia, chronic hypercapnia, laryngeal CA s/p resection 2017, presence of tracheostomy, diuretic induced hypokalemia, labile hypertension, ASCVD, HFpEF with exacerbations, CAD, hypertension, chronic hypoxic respiratory failure on home oxygen therapy, hypothyroidism, right subclavian artery stenosis, PAD, carotid stenosis, and hyponatremia is seen today for GI bleed. Hgb is stable at 12.0g/dl. Stool PCR and C.diff negative. CT scan abd/pelvis non-diagnostic. No previous Colonoscopy. Of note - Patient does have pertinent family history of colon CA in father. DDX - AVM, Hemorrhoid, Diverticular bleed, Ischemic colitis, malignancy. Rectal fissure unlikely given lack or rectal pain. Timing is inconsistent with IBD. PLAN - Continue to hold ASA and Plavix. - Discussed options for endoscopic evaluation with family and patient. She never had a colonoscopy d/t patient's history of aspiration and inability to drink large amount of fluids since her laryngeal CA. Reviewed risks and benefits of colonoscopy vs. flex sign vs. watchful waiting. We also reviewed differentials. Patient/family states they would be unlikely to proceed with treatment if cancer were to be found. Therefore we'll proceed with conservative monitoring - Continue with CBC surveillance, supportive care, maintenance IVF and clear liquid diet per primary team. - Continue to clinically monitor for active signs of bleeding. - If there's concern for ongoing bleeding, may consider enema and flexible sigmoidoscopy. - Family and patient voice understanding and satisfaction. - Thank you for allowing us to participate in the care of this patient. Please call with any acute changes, questions or concerns. Please see addendum below with additional recommendation from my supervising physician. Supervising Physician Co-Signing Physician Notes Patient is a pleasant 69-year-old female with multiple medical problems seen in the emergency department. She was recently admitted earlier this month with pneumonia. She presents today passing maroon stools as well as multiple episodes of diarrhea. She denies having any pain. She states her appetite has been down somewhat. Her hemoglobin is down approximately 2 g since admission. She has not had any further active bleeding. She has never had a colonoscopy. She is hemodynamically stable. Her abdominal exam is benign. We have spoken with the family who has concerns about proceeding with a colonoscopy given her high aspiration risk. I do think it is reasonable to hold off for now. If she has has any bleeding overnight, I would like to proceed with a flexible sigmoidoscopy tomorrow and we could prep her with just enemas. Her stool studies have been negative. I wonder if she has ischemic colitis causing her symptoms. She did have somewhat of an elevated white count on admission but this is normalized. If this is ischemic colitis I suspect it will resolve on its own with no need for antibiotics. History of Present Illness Reason for Consultation: GI Bleed Requesting Physician: Dr. Zaidi Attending Physician: Destiny Bishop MD History of Present Illness 69-year-old female with past medical history including pneumonia, lchronic hypercapnia, laryngeal CA s/p resection 2016, presence of tracheostomy, diuretic induced hypokalemia, labile hypertension, ASCVD, HFpEF with exacerbations, CAD, hypertension, chronic hypoxic respiratory failure on home oxygen therapy, hypothyroidism, right subclavian artery stenosis, PAD, carotid stenosis, and hyponatremia is seen today for GI bleed. Patient was recently admitted for pneumonia, aspiration and weakness discharged on 11/17/24. She returned to ER for bloody diarrhea. She reports that this started on Wednesday night. She suspects she was going 5x/day. However, ER reports states she had at least 10-20 episodes over a couple hours. Question reliability of historian in regards to details of diarrhea. She is unsure what color the stools was and whether it was purple, black or brown. Although she doesn't think she had an melena stools. She thinks there was a small amount of bright red blood mixed in and with wiping. She has had several hospitalizations over the last couple months r/t heart failure 10/2024 and pneumonia 11/2024. She reports that she feels she lost 10 pounds throughout this period. She denies any fevers, chills, nausea, vomiting, abdominal pain, melena. She reports she hasn't had colonoscopys. She reports that she has done cologaurd. Social History - Former smoker. No alcohol or drug use. Family history - Father + Colorectal CA. No IBD or Celiac disease. Surgical History - Tracheostomy, Bronchoscopy, EGD, PEG tube 2017 Pertinent diagnostics ER labs 11/29/24 Hgb 12.0g/dl 36.8%, WBC 14.93, Plt 300 INR 1.1 BUN 42 Cr 1.58 Troponin 22.8 C.diff and Stool PCR negative. CT abd/pelvis with IV contrast only 11/29/24 FINDINGS: The visualized lung bases are clear. The liver is normal in size and attenuation. A tiny hypodense focus is noted involving the left lobe of the liver, which appears benign and could represent a cyst. There is no intrahepatic or extrahepatic biliary ductal dilatation. The hepatic vasculature is patent. The gallbladder is present. The spleen, pancreas, and adrenal glands are unremarkable. The kidneys are normal in size and attenuation. There is no hydronephrosis or perinephric fat stranding. No renal calculi or renal masses are identified. A few simple cortical cysts are noted in both kidneys. The ureters are normal in caliber and no ureteral calculi are seen. The bladder is normal in contour. The pelvic viscera are unremarkable. No focal or diffuse bowel wall thickening or evidence of bowel obstruction is identified. No imaging evidence of appendicitis. The abdominal and pelvic vasculature is patent. No adenopathy or fluid collections are seen. No aggressive-appearing osseous lesions are identified. Diffuse atherosclerotic calcification is noted involving the aorta and iliac arteries, which is stable. IMPRESSION: Tiny hepatic cystic lesion - stable. A few simple cortical cysts are noted in both kidneys - stable. Right pleural effusion is resolved. No other new interval abnormality since prior study CXR 11/29/24 IMPRESSION: 1. The cardiac silhouette is nonenlarged. Moderate coronary calcification is present. 2. Slightly coarse interstitial markings throughout both lungs suggesting mild emphysema. No acute focal infiltrate or consolidation is seen. Allergies Allergy/AdvReac Type Severity Reaction Status Date / Time bee venom protein (honey bee) Allergy Severe Anaphylaxis Verified 11/30/24 00:16 latex Allergy Intermediate Rash Verified 11/30/24 00:16 oxycodone [From Percocet] Allergy Intermediate PER Verified 11/30/24 00:16 GMG--GETS LOOPY. Home Medications Medication Instructions Recorded Confirmed Type buspirone 5 mg tablet 5 mg PO BID Anxiety 10/31/19 11/30/24 History aspirin 81 mg tablet,delayed 81 mg PO QAM 01/23/21 11/30/24 History release sodium chloride 0.65 % nasal spray 2 spray NA DIRECTED PRN 03/24/21 11/30/24 History aerosol (Saline Mist) Congestion budesonide 160 mcg-glycopyr 9 2 inh inhalation AMHS 12/17/22 11/30/24 History mcg-formot 4.8 mcg/actuation HFA inhaler (Breztri Aerosphere) levothyroxine 75 mcg tablet 75 mcg PO DAILYBB 07/12/24 11/30/24 History clopidogrel 75 mg tablet 75 mg PO QAM #30 tabs 07/14/24 11/30/24 Rx acetaminophen 160 mg/5 mL (5 mL) 650 mg PO Q6H PRN pain/fever 10/13/24 11/30/24 History oral solution baclofen 10 mg tablet 0 mg PO BID 10/13/24 11/30/24 History cyanocobalamin (vitamin B-12) 500 500 mcg PO DAILY 10/13/24 11/30/24 History mcg tablet (Vitamin B-12) lidocaine 4 % topical patch 1 patch topical DAILY Pain 10/13/24 11/30/24 History ipratropium 0.5 mg-albuterol 3 mg 3 ml NEB Q2H PRN shortness of 10/22/24 11/30/24 Rx (2.5 mg base)/3 mL nebulization breath or wheezing #180 mL soln sodium chloride 3 % for 3 ml inhalation Q6H PRN thickened 10/22/24 11/30/24 Rx nebulization secretions 30 days #120 mL potassium chloride 40 mEq/15 mL 40 meq (15 mL) PO DAILY 30 days 11/04/24 11/30/24 Rx oral liquid #450 mL acetylcysteine 100 mg/mL (10 %) 4 ml inhalation AMHS 11/12/24 11/30/24 History solution atorvastatin 40 mg tablet 40 mg PO HS 11/12/24 11/30/24 History ipratropium 20 mcg-albuterol 100 2 puff inhalation Q6H PRN Wheezing 11/12/24 11/30/24 History mcg/actuation mist for inhalation (Combivent Respimat) isosorbide mononitrate 10 mg tablet 10 mg PO BID #60 tabs 11/17/24 11/30/24 Rx lorazepam 0.5 mg tablet 0.5 mg sublingual Q8H PRN Anxiety 11/17/24 11/30/24 Rx or insomnia #30 tabs metoprolol tartrate 50 mg tablet 75 mg (1.5 x 50 mg) PO BID #75 tabs 11/17/24 11/30/24 Rx venlafaxine 75 mg tablet 75 mg PO TIDM #90 tabs 11/17/24 11/30/24 Rx cephalexin 250 mg/5 mL oral 500 mg PO AMHS 11/30/24 11/30/24 History suspension Patient History Medical History 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 MONTENEGRO 2016 - ABN STRESS TEST - [facility] - NO STENTS/ANGIOPLASTY History of tonsillectomy and adenoidectomy Family History Daughter Family history of reaction to anesthesia SLOW TO WAKE Father Family hx of colon cancer Other Colon cancer No pertinent family history Social History Smoking Status: Former smoker Tobacco Type: Cigarettes Cigarettes Per Day: 1-2; Second Hand Exposure: No; Do You Dip or Chew Tobacco: No; Hx Alcohol Use: No Hx Substance Use: No Preferred Language: Lao Communication Ability: Effective Geological Aide Required: No Beliefs That Will Affect Care: None marital status: Current Living Situation: Alone Current Living Situation Comment: daughte visits daily current occupational status: retired Feels Safe at Home: Yes Safety Concerns: Feels Safe At This Time Assistive Devices: Nebulizer and Oxygen - Continuous Review of Systems Review of Systems: See HPI Physical Exam Physical Exam: Constitutional: NAD. Alert. Answering questions appropriately. Neck: Tracheostomy in place on oxygen. Respiratory: Breathing is even, non-labored. Lungs nugent are clear to auscultation anteriorly. Cardiovascular: Regular Rate and Rhythm, no murmurs, rubs or gallops ap preciated. Gastrointestinal (Abdomen): Normoactive bowel sounds x4, soft, non-distended, non-tender. Musculoskeletal: Lying in bed comfortably. No peripheral edema. Results & Data Vital Signs (Past 12 Hours) Vital Signs Temp Pulse Pulse Resp BP BP Pulse Ox 11/30/24 08:03 73 14 95 11/30/24 06:00 67 22 125/51 L 99 11/30/24 05:00 66 18 127/54 L 99 11/30/24 04:00 72 20 139/61 99 11/30/24 03:00 74 22 132/60 100 11/30/24 02:00 72 16 136/61 100 11/30/24 01:00 71 18 123/65 99 11/30/24 00:33 79 20 165/69 H 100 11/29/24 23:37 79 11/29/24 23:10 79 22 133/59 L 99 11/29/24 21:13 98.2 F 95 H 22 112/74 96 O2 Del Method O2 Flow Rate 11/30/24 08:03 Trach Collar 3 11/30/24 06:00 Trach Collar 2 11/30/24 05:00 Trach Collar 2 11/30/24 04:00 Trach Collar 2 11/30/24 03:00 Trach Collar 2 11/30/24 02:00 Trach Collar 2 11/30/24 01:00 Trach Collar 2 11/30/24 00:33 Trach Collar 2 11/29/24 23:37 11/29/24 23:10 Trach Collar 2 11/29/24 21:13 Trach Collar 2 PG Care Time/CCT Total # of Minutes Spent Total Time Spent with Patient: Total time spent is greater than 50% in coordination of care (as documented) at patient's floor/unit and/or counseling patient: Coding Level of Care Code 45096 IN/OBS CONSULT LVL 4,60M Diagnoses GI bleed K92.2 GI bleed type/associated pathology: unspecified gastrointestinal hemorrhage type (1) GI bleed GI bleed type/associated pathology: unspecified gastrointestinal hemorrhage type Qualified Code(s): K92.2 - Gastrointestinal hemorrhage, unspecified
[2024-11-30] MEDS: ASPIRIN 81 MG ECTAB PO SCH (08:45)
[2024-11-30] MEDS: METOPROLOL TARTRATE 25 MG TAB PO SCH (08:45)
[2024-11-30] MEDS: CYANOCOBALAMIN (B-12) 500 MCG TABLET PO SCH (08:45)
[2024-11-30] MEDS: POTASSIUM CHLORIDE 20 MEQ/15 ML UDC PO SCH (08:46)
[2024-11-30] MEDS: busPIRone 5 MG TAB PO SCH (08:46)
[2024-11-30] MEDS: BACLOFEN 10 MG TAB PO SCH (08:46)
[2024-11-30] MEDS: CLOPIDOGREL BISULFATE 75 MG TAB PO SCH (08:46)
[2024-11-30] MEDS: PANTOprazole 40 MG/10 ML SYR IV SCH (08:47)
[2024-11-30] MEDS ORDERED: NON-FORMULARY MEDICATION (Budesonide-Glycopyr-Formoterol [Breztri Aerosphere] 160-9-4.8 mc INH SCH (09:00)
[2024-11-30 09:03] LABS: Hematocrit (blood only) 30.5 % (37.0-47.0); Hemoglobin 10.1 g/dl (12.0-16.0)
[2024-11-30] MEDS: LIDOCAINE 5% 1 PATCH TD SCH (09:22)
[2024-11-30] MEDS ORDERED: SODIUM CHLOR 7% 4 ML NEB INH PRN (10:27)
[2024-11-30] MEDS: ISOSORBIDE MONONITRATE 20 MG TAB PO SCH (10:47)
[2024-11-30] MEDS: IPRATROPIUM BROMIDE HFA INHALER INH PRN (10:47)
[2024-11-30] MEDS: VENLAFAXINE HCL 37.5 MG TAB PO SCH (10:47)
[2024-11-30] MEDS: FLUTICASONE FUROATE 200MCG 14 PUFFS/INHALER INH SCH (10:48)
[2024-11-30] MEDS: UMECLIDINIUM/VILANTEROL 62.5/25MCG 7 PUFFS/INHALER INH SCH (10:48)
[2024-11-30 13:30] LABS: Hematocrit (blood only) 30.5 % (37.0-47.0); Hemoglobin 9.8 g/dl (12.0-16.0); Mean Corpuscular Hemoglobin 29.3 pg (25.0-34.0); Mean Corpuscular Volume 91.0 fL (80.0-100.0); Platelet Count 212 K/uL (130-400); RDW Standard Deviation 46.5 fL (36.4-46.3); Red Blood Count 3.35 M/uL (4.20-5.40); White Blood Count 7.28 K/ul (4.8-10.8)
[2024-11-30 13:48] LABS: Anion Gap 5.0 (3-11); Blood Urea Nitrogen 34.0 mg/dl (6-23); Calcium 9.0 mg/dl (8.6-10.3); Carbon Dioxide 26.0 mmol/L (21-32); Chloride 103.0 mmol/L (98-107); Creatinine Clr Calc Pharmacy 24.6 ml/min; Glucose 62.0 mg/dl (70-99(Fasting)); Potassium 5.3 mmol/L (3.5-5.1); Sodium 134.0 mmol/L (136-145)
[2024-11-30] MEDS: ACETAMINOPHEN 325 MG TAB PO PRN (16:59)
--- NOTE | 2024-11-30 19:26 | History & Physical Bridge Note ---
Date of Service November 30, 2024 History & Physical Bridge Note I have examined the patient, reviewed the History & Physical and in the interval since the performance of the History & Physical I have noted the following changes of clinical significance: Patient reports she had abdominal cramping on Wednesday night followed by numerous loose maroon-colored bowel movements. Then since then she had a few bowel movements every time she felt she had to pass gas some small amount of stool come out. Today so far in the hospital she had 1 small dark black stool. Denies abdominal pain or nausea. She does not think she would tolerate a bowel prep but is willing to do a sigmoidoscopy if continues to bleed. Otherwise has her usual shortness of breath but nothing new. She had a little bit of blood on her tracheostomy tube when she was cleaning it. I reviewed her serial CBC, BMP, troponin and stool studies were negative. With mild hyponatremia, BETH improving, mild hyperkalemia, troponin trended downward. Vitals reviewed Gen: AAOx3, NAD, thin HEENT: Anicteric sclerae, EOMI, tracheostomy tube in place CV: RRR no mgr nl S1S2 Pulm: Diminished breath sounds throughout Abd: +BS soft NT ND no masses or hernias Ext: No edema Skin: No rashes, warm/dry Neuro: Full strength throughout 69-year-old female here with GI bleed and acute blood loss anemia, BETH. Possible ischemic colitis. CT abdomen/pelvis negative. Stool studies and C. difficile negative. - Discontinue aspirin and Plavix - Continue other medications for now - N.p.o. after midnight in case of sigmoidoscopy tomorrow - Follow CBC, BMP in the morning - Discontinue potassium chloride supplement for mild hyperkalemia
[2024-11-30] MEDS: ATORVASTATIN 40 MG TAB PO SCH (21:21)
[2024-11-30] MEDS: REMOVE LIDODERM PATCH SCH (21:25)
[2024-11-30] MEDS: SODIUM CHLORIDE 0.9% 500 ML IV ONE (21:26)
[2024-11-30] MEDS: METOPROLOL TARTRATE 50 MG TAB PO SCH (21:34)
[2024-12-01] MEDS: MoRPHine SULFATE 2 MG/ML CARP IV STA (00:19)
[2024-12-01 06:14] LABS: Hematocrit (blood only) 31.4 % (37.0-47.0); Hemoglobin 10.0 g/dl (12.0-16.0); Immature Granulocytes # (auto) 0.02 K/uL (0.01-0.20); Immature Granulocytes % (auto) 0.3 %; Mean Corpuscular Hemoglobin 28.9 pg (25.0-34.0); Mean Corpuscular Volume 90.8 fL (80.0-100.0); Platelet Count 219 K/uL (130-400); RDW Standard Deviation 46.5 fL (36.4-46.3); Red Blood Count 3.46 M/uL (4.20-5.40); White Blood Count 6.29 K/ul (4.8-10.8)
[2024-12-01 06:38] LABS: Anion Gap 5.0 (3-11); Blood Urea Nitrogen 29.0 mg/dl (6-23); Calcium 8.9 mg/dl (8.6-10.3); Carbon Dioxide 28.0 mmol/L (21-32); Chloride 104.0 mmol/L (98-107); Creatinine Clr Calc Pharmacy 30.1 ml/min; Glucose 72.0 mg/dl (70-99(Fasting)); Magnesium 2.0 mg/dl (1.7-2.4); Potassium 4.2 mmol/L (3.5-5.1); Sodium 137.0 mmol/L (136-145)
--- NOTE | 2024-12-01 10:57 | Gastroenterology Progress Note ---
Date of Service December 01, 2024 Assessment & Plan Admission and Anticipated Discharge Date Admission Date: November 30, 2024 Results & Data Results & Data Vital Signs (Past 12 Hours) Vital Signs Temp Pulse Resp BP Pulse Ox O2 Del Method O2 Flow Rate 12/01/24 08:00 97.5 F L 72 18 132/60 95 Trach Collar 8.0 12/01/24 06:03 74 18 95 Trach Collar 12/01/24 04:05 97.3 F L 72 18 132/64 93 Trach Collar 8 FiO2 12/01/24 08:00 12/01/24 06:03 28 12/01/24 04:05 PG Care Time/CCT Total # of Minutes Spent Total Time Spent with Patient: Total time spent is greater than 50% in coordination of care (as documented) at patient's floor/unit and/or counseling patient: Coding
--- NOTE | 2024-12-01 10:58 | History & Physical Bridge Note ---
Date of Service December 01, 2024 History & Physical Bridge Note I have examined the patient, reviewed the History & Physical and in the interval since the performance of the History & Physical I have noted the following changes of clinical significance: no changes noted 69-year-old female with past medical history including pneumonia, chronic hypercapnia, laryngeal CA s/p resection 2016, presence of tracheostomy, diuretic induced hypokalemia, labile hypertension, ASCVD, HFpEF with exacerbations, CAD, hypertension, chronic hypoxic respiratory failure on home oxygen therapy, hypothyroidism, right subclavian artery stenosis, PAD, carotid stenosis, and hyponatremia is seen today for GI bleed. Hgb dropped from 12.0g/dl to 10g/dl. She did have one spot of blood on bed cruz over night per nursing staff. DDX - AVM, Hemorrhoid, Diverticular bleed, Ischemic colitis, malignancy. Rectal fissure unlikely given lack or rectal pain. Timing is inconsistent with IBD. PLAN - Case reviewed with Dr. James. - Discussed benefits and risks to further evaluation with Colonoscopy vs. Flexible sigmoidoscopy. We'll plan to proceed with flexible sigmoidoscopy today for further evaluation. - The patient asked that I call her daughter Rhona (Primary Contact). Family voices understanding and agrees with plan of care. - Orders placed for tap water enema x 2. - We'll add to schedule for flexible sigmoidoscopy today. - Thank you for allowing us to participate in the care of this patient. Please call with any acute changes, questions or concerns. Please see addendum below with additional recommendation from my supervising physician.
--- NOTE | 2024-12-01 14:39 | Anesthesiology Consultation ---
Date of Service December 01, 2024 Assessment & Plan (1) Encounter for pre-operative examination: Chart Review Chart Review: Acceptable Risk for Surgery and Patient NOT seen in Pre Admission Testing Consults Requested none History Surgery Operation Date: 12/01/24 16:45 Proposed Procedures p Flexible Sigmoidoscopy Dr. Erika James, DO Height/Weight Height: 5 ft Weight: 43.2 kg Allergies Allergy/AdvReac Type Severity Reaction Status Date / Time bee venom protein (honey bee) Allergy Severe Anaphylaxis Verified 11/30/24 00:16 latex Allergy Intermediate Rash Verified 11/30/24 00:16 oxycodone [From Percocet] Allergy Intermediate PER Verified 11/30/24 00:16 GMG--GETS LOOPY. Medications Home Medications Medication Instructions Recorded Confirmed Last Taken buspirone 5 mg tablet 5 mg PO BID Anxiety 10/31/19 11/30/24 11/29/24 08:00 aspirin 81 mg tablet,delayed 81 mg PO QAM 01/23/21 11/30/24 11/29/24 release sodium chloride 0.65 % nasal spray 2 spray NA DIRECTED PRN 03/24/21 11/30/24 Unknown aerosol (Saline Mist) Congestion budesonide 160 mcg-glycopyr 9 2 inh inhalation [facility] 12/17/22 11/30/24 11/29/24 08:00 mcg-formot 4.8 mcg/actuation HFA inhaler (Breztri Aerosphere) levothyroxine 75 mcg tablet 75 mcg PO DAILYBB 07/12/24 11/30/24 11/29/24 clopidogrel 75 mg tablet 75 mg PO QAM #30 tabs 07/14/24 11/30/24 11/29/24 09:00 acetaminophen 160 mg/5 mL (5 mL) 650 mg PO Q6H PRN pain/fever 10/13/24 11/30/24 Unknown oral solution baclofen 10 mg tablet 0 mg PO BID 10/13/24 11/30/24 10/13/24 08:00 cyanocobalamin (vitamin B-12) 500 500 mcg PO DAILY 10/13/24 11/30/24 11/29/24 08:00 mcg tablet (Vitamin B-12) lidocaine 4 % topical patch 1 patch topical DAILY Pain 10/13/24 11/30/24 Unknown ipratropium 0.5 mg-albuterol 3 mg 3 ml NEB Q2H PRN shortness of 10/22/24 11/30/24 Unknown (2.5 mg base)/3 mL nebulization breath or wheezing #180 mL soln sodium chloride 3 % for 3 ml inhalation Q6H PRN thickened 10/22/24 11/30/24 Unknown nebulization secretions 30 days #120 mL potassium chloride 40 mEq/15 mL 40 meq (15 mL) PO DAILY 30 days 11/04/24 11/30/24 Unknown oral liquid #450 mL acetylcysteine 100 mg/mL (10 %) 4 ml inhalation AMHS 11/12/24 11/30/24 11/29/24 09:00 solution atorvastatin 40 mg tablet 40 mg PO HS 11/12/24 11/30/24 11/29/24 09:00 ipratropium 20 mcg-albuterol 100 2 puff inhalation Q6H PRN Wheezing 11/12/24 11/30/24 Unknown mcg/actuation mist for inhalation (Combivent Respimat) isosorbide mononitrate 10 mg tablet 10 mg PO BID #60 tabs 11/17/24 11/30/24 11/29/24 20:00 lorazepam 0.5 mg tablet 0.5 mg sublingual Q8H PRN Anxiety 11/17/24 11/30/24 Unknown or insomnia #30 tabs metoprolol tartrate 50 mg tablet 75 mg (1.5 x 50 mg) PO BID #75 tabs 11/17/24 11/30/24 Unknown venlafaxine 75 mg tablet 75 mg PO TIDM #90 tabs 11/17/24 11/30/24 Unknown cephalexin 250 mg/5 mL oral 500 mg PO AMHS 11/30/24 11/30/24 Unknown suspension Active Medications Generic Name Dose Route Start Last Admin Trade Name Freq PRN Reason Stop Dose Admin Acetaminophen 650 mg 11/30/24 04:49 12/01/24 12:50 Acetaminophen 325 Mg Tab PO 12/30/24 04:48 650 mg Q4H PRN Administration Pain or Fever Acetylcysteine 4 ml 11/30/24 07:00 12/01/24 06:02 Acetylcysteine 10% Inhal Soln 4 Ml Dispensed By Resp. INH 12/30/24 06:59 4 ml BIDR JUANY Administration Albuterol 3 ml 11/30/24 04:49 12/01/24 06:02 Albut/Ipratrop 3mg/0.5mg Neb 3 Ml Vial NEB 12/30/24 04:48 3 ml Q2H PRN Administration shortness of breath or wheezing Protocol Atorvastatin Calcium 40 mg 11/30/24 21:00 11/30/24 21:21 Atorvastatin 40 Mg Tab PO 12/30/24 20:59 40 mg HS JUANY Administration Baclofen 10 mg 11/30/24 09:00 12/01/24 08:52 Baclofen 10 Mg Tab PO 12/30/24 08:59 10 mg BID JUANY Administration Buspirone HCl 5 mg 11/30/24 09:00 12/01/24 08:52 Buspirone 5 Mg Tab PO 12/30/24 08:59 5 mg BID JUANY Administration Cyanocobalamin 500 mcg 11/30/24 09:00 12/01/24 08:53 Cyanocobalamin (B-12) 500 Mcg Tablet PO 12/30/24 08:59 500 mcg DAILY JUANY Administration Fluticasone Furoate 1 puffs 11/30/24 09:00 12/01/24 08:53 Fluticasone Furoate 200mcg 14 Puffs/Inhaler INH 12/30/24 08:59 1 puffs DAILY JUANY Administration Pantoprazole Sodium 40 mg in 10 mls @ 5 mls/min 11/30/24 09:00 12/01/24 08:54 Protonix IV 12/30/24 08:59 5 mls/min BID JUANY Administration Ipratropium [place] 1 puffs 11/30/24 06:04 11/30/24 10:47 Ipratropium [place] Hfa Inhaler INH 12/30/24 06:03 1 puffs Q6H PRN Administration Wheezing Protocol Isosorbide Mononitrate 10 mg 11/30/24 09:00 12/01/24 08:53 Isosorbide Mononitrate 20 Mg Tab PO 12/30/24 08:59 10 mg BID JUANY Administration Levothyroxine Sodium 75 mcg 11/30/24 06:30 12/01/24 05:30 Levothyroxine Sodium 75 Mcg Tablet PO 12/30/24 06:29 75 mcg DAILYBB JUANY Administration Lidocaine 1 patch 11/30/24 09:00 12/01/24 08:54 Lidocaine 5% 1 Patch TD 12/30/24 08:59 Not Given DAILY JUANY Metoprolol Tartrate 75 mg 11/30/24 09:00 12/01/24 08:54 Metoprolol Tartrate 25 Mg Tab PO 12/30/24 08:59 75 mg QAM JUANY Administration Metoprolol Tartrate 50 mg 11/30/24 21:00 11/30/24 21:34 Metoprolol Tartrate 50 Mg Tab PO 12/30/24 20:59 Not Given PM JUANY Miscellaneous 1 each 11/30/24 21:00 11/30/24 21:25 Remove Lidoderm Patch N/A 12/30/24 20:59 1 each PM JUANY Administration Umeclidinium/Vilanterol 1 puffs 11/30/24 09:00 12/01/24 08:54 Umeclidinium/Vilanterol 62.5/25mcg 7 Puffs/Inhaler INH 12/30/24 08:59 1 puffs DAILY JUANY Administration Venlafaxine HCl 75 mg 11/30/24 08:00 12/01/24 12:50 Venlafaxine Hcl 37.5 Mg Tab PO 12/30/24 07:59 75 mg TIDM JUANY Administration Past Medical History Medical History (Updated 12/01/24 @ 14:41 by Donnie Hernandez MD) Encounter for pre-operative examination Chronic hypoxic respiratory failure, on home oxygen therapy CAD (coronary artery disease) 2007 - LAD stent 2016 - LITTLE to mid LAD CHF (congestive heart failure) Labile hypertension Acute kidney injury superimposed on CKD 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 Date of Service November 30, 2024 Assessment & Plan (1) GI bleed: (2) Tracheostomy dependent: (3) Chronic hypoxic respiratory failure, on home oxygen therapy: (4) Acute kidney injury superimposed on CKD: Plan The patient is a 69-year-old female with past medical history including pneumonia, chronic hypercapnia, presence of tracheostomy, diuretic induced hypokalemia, labile hypertension, ASCVD, HFpEF with exacerbations, CAD, hypertension, chronic hypoxic respiratory failure on home oxygen therapy, hypothyroidism, right subclavian artery stenosis, PAD, carotid stenosis, and hyponatremia. The patient presents to the emergency department, with her daughter, due to the development of maroon-colored stools over the past 2 days, and then was noted to have bright red blood on toilet paper earlier this evening. She was most recently admitted to [facility] from 11/12-11/17/2024 for pneumonia and COPD exacerbation. Her daughter reports that her stools had been mushy since 1 day after leaving the hospital, and that became more frequent as noted. She takes aspirin and Plavix as directed. She has not had any issues with bleeding in the past. From the ED she received a 250 cc bolus of normal saline, and Tylenol 1 g IV. Troponin was 22.8, creatinine 1.58 with base 0.63, and hemoglobin 12.0. She does report some intermittent dry heaving. Stool PCR was only positive for Hemoccult positive but he chest x-ray showed emphysema. CT abdomen pelvis showed improved the right pleural effusion. She was then referred for evaluation for admission to the [facility] hospitalist service. Elevated troponin/CAD/hypertension/HFpEF- The patient will be admitted to telemetry for serial cardiac enzymes, serial EKG's, cardiac rhythm monitoring Troponin 22.8 on admission with follow-up pending. Troponins ranged from 15.2 up to 71.8 on several occasions. Most recent echocardiogram on 10/21/2024 with ejection fraction 65-70%. Likely supply/demand mismatch For now, hold isosorbide mononitrate, metoprolol to tartrate Tracheostomy dependent/chronic hypercapnia/COPD/oxygen dependency- Continue tracheostomy care Continue breast tree Aerosphere or substitute, Combivent Respimat, and DuoNebs every 2 hours as needed Continue saline mist sprays, and acetylcysteine inhalation a.m. and at bedtime Past Family History Family History Daughter Family history of reaction to anesthesia SLOW TO WAKE Father Family hx of colon cancer Other Colon cancer No pertinent family history Past Surgical History Surgical History History of partial gastrectomy due to fistula from PEG tube History of tracheostomy History of laryngoscopy W/ BIOPSY History of heart artery stent S/P percutaneous endoscopic gastrostomy (PEG) tube placement History of bronchoscopy History of tracheostomy History of cardiac cath 2008 - [place] - [facility] - 2 STENTS PLACED - FOLLOWS W/ DR. MONTENEGRO 2016 - ABN STRESS TEST - [facility] - NO STENTS/ANGIOPLASTY History of tonsillectomy and adenoidectomy Social History Smoking Status: Former smoker tobacco type: cigarettes Smoking cigarettes per day: 1-2 Do You Dip or Chew Tobacco: No Hx Alcohol Use: No Alcohol type: beer and wine alcohol intake frequency: a few times a month Hx Substance Use: No substance use type: does not use Physical Exam Vital Signs Last Vital Signs Temp 36.2 C L 12/01/24 14:45 Pulse 78 12/01/24 14:45 Resp 18 12/01/24 14:45 BP 149/60 H 12/01/24 14:45 Pulse Ox 93 12/01/24 14:45 O2 Del Method Trach Collar 12/01/24 14:45 O2 Flow Rate 6 12/01/24 14:45 FiO2 28 12/01/24 06:03 Testing Laboratory Results 12/01/24 05:33 12/01/24 05:33 PT 11.6 Seconds (9.0-12.0) 11/29/24 22:57 INR 1.1 (0.9-1.1) 11/29/24 22:57 APTT 25 Seconds (21-31) 11/29/24 22:57 Blood Type O Positive 11/29/24 22:57 Antibody Screen NEGATIVE 11/29/24 22:57 Electrocardiogram Date: 11/29/24 Findings: + NSR @ Chest X-Ray Date: 11/30/24 IMPRESSION: 1. The cardiac silhouette is nonenlarged. Moderate coronary calcification is present. 2. Slightly coarse interstitial markings throughout both lungs suggesting mild emphysema. No acute focal infiltrate or consolidation is seen. Echocardiogram Date: 10/21/24 EF: 65% LV Function: normal Valvular Disease: + no significant valvular disease
--- NOTE | 2024-12-01 16:17 | Anesthesiology Progress Note ---
Date of Service December 01, 2024 Anesthesia Post Procedure Vital Signs Vital Signs: Temp Pulse Resp BP Pulse Ox O2 Del Method O2 Flow Rate 12/01/24 16:10 73 16 141/58 H 98 Trach Collar 6 12/01/24 15:56 Trach Collar 8 12/01/24 14:45 36.2 C L 78 18 149/60 H 93 Trach Collar 6 12/01/24 11:43 36.7 C 73 19 173/69 H 99 Trach Collar 12/01/24 08:00 36.4 C L 72 18 132/60 95 Trach Collar 8.0 12/01/24 06:03 74 18 95 Trach Collar 12/01/24 04:05 36.3 C L 72 18 132/64 93 Trach Collar 8 11/30/24 22:06 36.2 C L 84 18 131/57 L 94 Room Air 11/30/24 21:39 76 16 95 Trach Collar 11/30/24 21:20 116/57 L 11/30/24 20:09 36.5 C 72 22 95/47 L 91 Trach Collar 11/30/24 19:30 Trach Collar FiO2 12/01/24 16:10 12/01/24 15:56 28 12/01/24 14:45 12/01/24 11:43 12/01/24 08:00 12/01/24 06:03 28 12/01/24 04:05 11/30/24 22:06 11/30/24 21:39 28 11/30/24 21:20 11/30/24 20:09 11/30/24 19:30 28 Pain Intensity Head: Pain Intensity: 8 Transfer of Care Handoff Completed per policy Notes Mental Status: alert / awake / arousable Patient Amnestic to Procedure: Yes Nausea / Vomiting: adequately controlled Pain: adequately controlled Airway Patency, RR, SpO2: stable & adequate BP & HR: stable & adequate Hydration State: stable & adequate Anesthetic Complications: no major complications apparent
--- NOTE | 2024-12-01 16:18 | GI REPORT ---
[facility] Patient: BHAVNA CAT : 1955 Sex at : Female Age: 69 Years Procedure: Colonoscopy Date: 12/01/2024 Attending Physician: Merari James DO Referring MD: Destiny Bishop Md Indications: - Hematochezia, patient was recently started on aspirin and Plavix. Unable to prep for colonoscopy due to high aspiration risk. She was given enemas for a flexible sigmoidoscopy today. Please see full consult for complete details. Medications: - Monitored Anesthesia Care - See the Anesthesia note for documentation of the administered medications Complications: - No immediate complications. Estimated Blood Loss: - Estimated blood loss: None. Procedure: - ASA Grade Assessment: IV - A patient with severe systemic disease that is a constant threat to life. - The pediatric colonoscope was introduced through the anus and advanced to the cecum, identified by appendiceal orifice and ileocecal valve. - The colonoscopy was performed without difficulty. Patient was prepped for a flexible sigmoidoscopy she still had a significant amount of retained stool but I was able to reach the cecal floor. - The quality of the bowel preparation was poor. Findings: - The perianal examination was normal. - Internal hemorrhoids were found during retroflexion. The hemorrhoids were small. - Multiple small-mouthed diverticula were found in the sigmoid colon. - Multiple sessile polyps were found in the entire colon. The polyps were small in size. Polypectomy was not attempted due to the patient taking anticoagulation medication. - A single (solitary) 20 mm ulcer was found in the cecum. Oozing was present. Stigmata of recent bleeding were present. Biopsies were taken with a cold forceps for histology. Impression: - Preparation of the colon was poor. - Internal hemorrhoids. - Diverticulosis in the sigmoid colon. - Multiple polyps in the entire colon. Resection not attempted. - A single (solitary) ulcer in the cecum. Biopsied. ? Ischemia versus malignancy Recommendation: - Return patient to [facility] for [facility] care. - Advance diet as tolerated. - Continue present medications. Continue to hold anticoagulation for now until pathology returns - Await pathology results. - The findings and recommendations were discussed with the patient. Procedure Code(s): - 63517, Colonoscopy, flexible; with biopsy, single or multiple Diagnosis Code(s): - K92.1, Melena (includes Hematochezia) - D12.6, Benign neoplasm of colon, unspecified - K63.3, Ulcer of intestine - K64.8, Other hemorrhoids - K57.30, Diverticulosis of large intestine without perforation or abscess without bleeding CPT(R) - 2023 copyright [employer]. All Rights Reserved. The CPT codes, CCI edits and ICD codes generated are intended as suggestions and were generated based on input data. These codes are preliminary and upon aerial installer review may be revised to meet current compliance and payer requirements. The provider is responsible for the final determination of appropriate codes, and modifiers. Merari James, This document has been electronically signed. Note Initiated:12/01/2024 Note Completed:12/01/2024 4:18 PM \\[email or web address]\Provation\Results\LIVE\[id number]
[2024-12-01] MEDS: PROPOFOL IV EMULSION 10 MG/ML 20 ML VIAL IV ONE (16:58)
--- NOTE | 2024-12-01 17:22 | Hospitalist Progress Note ---
Date of Service December 01, 2024 Assessment & Plan (1) GI bleed: (2) Tracheostomy dependent: (3) Chronic hypoxic respiratory failure, on home oxygen therapy: (4) Acute kidney injury superimposed on CKD: Plan The patient is a 69-year-old female with past medical history including recent pneumonia, chronic respiratory failure with hypoxemia and hypercapnia, presence of tracheostomy, hypertension, ASCVD, HFpEF, CAD s/p PCI, hypothyroidism, right subclavian artery stenosis, PAD, carotid stenosis, and hyponatremia who was admitted with lower GI bleed and acute blood loss anemia. #Lower GI bleed/acute blood loss anemia/cecum ulcer-Hgb baseline around 12 and now down to 10.0 and stable from yesterday. With maroon-colored stool indicative of lower GI bleed. Sigmoidoscopy on 12/01 shows fairly large 2 cm cecum ulcer that with active oozing of blood. This was biopsied. Suspect she had ischemic colitis given history of PAD. This should resolve on its own. Appreciate GI consultation - Advance to clear liquid diet and then to heart healthy diet easy to chew as tolerated from there - Follow CBC again in the a.m. - Continue to hold aspirin and Plavix - Await biopsy results to rule out malignancy #BETH/hyperkalemia-with mild BETH on admission now improved with creatinine down to 1.1 from 1.3. Potassium is high at 5.3 and is now improved after small amount of IV fluids given and holding home potassium -check BMP in the a.m. - Continue to hold potassium chloride and Bumex from home #Elevated troponin/CAD/hypertension/chronic HFpEF-troponin only minimally elevated at 22 and decreased to 18 on repeat check. She had no chest pain or ischemic changes on EKG and this is lead generation representative myocardial demand ischemia due to acute blood loss anemia - Holding home Bumex but continue home isosorbide, metoprolol - Holding home aspirin and Plavix due to GI bleed #Tracheostomy dependent/chronic respiratory failure with hypoxemia and hypercapnia/COPD Continue tracheostomy care, supplemental O2 Continue maintenance inhalers, Combivent Respimat, and DuoNebs every 2 hours as needed Continue saline mist sprays, and acetylcysteine inhalation a.m. and at bedtime #Hyperlipidemia-Continue atorvastatin at bedtime #Anxiety and depression- On buspirone, lorazepam, and venlafaxine as outpatient-recent increase in venla faxine has improved her depression #Chronic aspiration-secondary to tracheostomy and previous radiation to the neck. Video swallow study in 07/2024 with aspiration of all substances- permissive aspiration decided at that time. VFSS 11/16 again with aspiration with thin and nectar thick liquids, not clearing secretions from vallecula - Meds should all be given in a form that can be crushed and given with pudding - F/u with ENT for laryngoscope within the near future - Advance as tolerated to easy to chew diet and continue good oral hygiene #Hypothyroidism-TSH recently normal at 0.8 - Continue home levothyroxine DVT prophylaxis-SCDs Disposition-continued stay on PCU, follow blood counts, possible discharge to home in the next 1-2 days but daughter prefers that the patient not come home till Wednesday Admission and Anticipated Discharge Date Admission Date: November 30, 2024 Subjective No further blood in the stool today. Had sigmoidoscopy and found to have cecal ulcer. Otherwise she has no complaints. I discussed her care with her daughter at the bedside. Telemetry is normal sinus rhythm with rates in the 60s to 80s Physical Exam Constitutional: WD/WN, vitals as above Neck: + abnormal visual inspection (Tracheosto my tube in place) Respiratory: normal respiratory effort Auscultation: + diminished lung sounds (Throughout) Cardiovascular: RRR, no murmur, no edema Gastrointestinal (Abdomen): normal bowel sounds, soft, nontender, no hepatosplenomegaly Results & Data Results & Data Vital Signs (Past 12 Hours) Vital Signs Temp Pulse Resp BP Pulse Ox O2 Del Method O2 Flow Rate 12/01/24 16:37 76 16 170/87 H 98 Trach Collar 6 12/01/24 16:23 76 16 165/92 H 98 Trach Collar 6 12/01/24 16:10 73 16 141/58 H 98 Trach Collar 6 12/01/24 15:56 Trach Collar 8 12/01/24 14:45 36.2 C L 78 18 149/60 H 93 Trach Collar 6 12/01/24 11:43 36.7 C 73 19 173/69 H 99 Trach Collar 12/01/24 08:00 36.4 C L 72 18 132/60 95 Trach Collar 8.0 12/01/24 06:03 74 18 95 Trach Collar FiO2 12/01/24 16:37 12/01/24 16:23 12/01/24 16:10 12/01/24 15:56 28 12/01/24 14:45 12/01/24 11:43 12/01/24 08:00 12/01/24 06:03 28 Laboratory Results CBC, BMP, magnesium reviewed PG Care Time/CCT Total # of Minutes Spent Total Time Spent with Patient: Total time spent is greater than 50% in coordination of care (as documented) at patient's floor/unit and/or counseling patient: Coding Level of Care Code 05156 SUB INP/OBS CARE 3/50MIN Diagnoses GI bleed K92.2 GI bleed type/associated pathology: unspecified gastrointestinal hemorrhage type Tracheostomy dependent Z93.0 Chronic hypoxic respiratory failure, on home oxygen therapy J96.11; Z99.81 Acute kidney injury superimposed on CKD N17.9; N18.9 (1) GI bleed GI bleed type/associated pathology: unspecified gastrointestinal hemorrhage type Qualified Code(s): K92.2 - Gastrointestinal hemorrhage, unspecified
[2024-12-01] MEDS ORDERED: ACETAMINOPHEN 1,000 MG/100 ML VIAL IV STA (20:46)
[2024-12-01] MEDS: LORazepam 0.5 MG TAB SL PRN (21:28)
[2024-12-01] MEDS: ACETAMINOPHEN 10MG/ML Custom 650 MG in EMPTY BAG 0 ML IV STA (21:29)
[2024-12-02 06:54] LABS: Hematocrit (blood only) 34.2 % (37.0-47.0); Hemoglobin 11.1 g/dl (12.0-16.0); Immature Granulocytes # (auto) 0.02 K/uL (0.01-0.20); Immature Granulocytes % (auto) 0.3 %; Mean Corpuscular Hemoglobin 29.3 pg (25.0-34.0); Mean Corpuscular Volume 90.2 fL (80.0-100.0); Platelet Count 222 K/uL (130-400); RDW Standard Deviation 45.1 fL (36.4-46.3); Red Blood Count 3.79 M/uL (4.20-5.40); White Blood Count 6.48 K/ul (4.8-10.8)
[2024-12-02 07:16] LABS: Anion Gap 5.0 (3-11); Blood Urea Nitrogen 19.0 mg/dl (6-23); Calcium 9.1 mg/dl (8.6-10.3); Carbon Dioxide 29.0 mmol/L (21-32); Chloride 104.0 mmol/L (98-107); Creatinine Clr Calc Pharmacy 41.4 ml/min; Glucose 71.0 mg/dl (70-99(Fasting)); Potassium 4.3 mmol/L (3.5-5.1); Sodium 138.0 mmol/L (136-145)
--- NOTE | 2024-12-02 13:05 | Gastroenterology Progress Note ---
Date of Service December 02, 2024 Assessment & Plan (1) GI bleed: (2) Pneumonia: (3) Cecal ulcer: Plan: Patient is currently doing very well with no further bleeding. Pathology is pending. Her anticoagulation is currently on hold. Hopefully this will be is chemic in nature and will resolve on its own and we will be able to start her aspirin and Plavix in the next few days. Admission and Anticipated Discharge Date Admission Date: November 30, 2024 Subjective Patient seen with her daughter at bedside. Overall, she is doing very well. She has not had any further bleeding. Her hemoglobin is stable. She is tolerating her diet. Results & Data Results & Data Vital Signs (Past 12 Hours) Vital Signs Temp Pulse Pulse Resp BP Pulse Ox O2 Del Method 12/02/24 11:41 36.5 C 66 20 109/44 L 97 Trach Collar 12/02/24 11:06 Trach Collar 12/02/24 07:59 36.3 C L 99 H 20 167/65 H 91 Trach Collar 12/02/24 07:46 95 H 18 92 Trach Collar 12/02/24 06:00 91 H O2 Flow Rate FiO2 12/02/24 11:41 6 12/02/24 11:06 6 28 12/02/24 07:59 6 12/02/24 07:46 6 28 12/02/24 06:00 Laboratory Results 12/02/24 05:54 WBC 6.48 RBC 3.79 L Hgb 11.1 L Hct 34.2 L MCV 90.2 MCH 29.3 MCHC 32.5 RDW Std Deviation 45.1 RDW Coeff of Jair 13.6 Plt Count 222 MPV 10.7 Immature Gran % (Auto) 0.3 Neut % (Auto) 66.4 Lymph % (Auto) 16.4 [place] % (Auto) 9.7 Eos % (Auto) 6.3 Baso % (Auto) 0.9 Neut # (Auto) 4.30 Lymph # (Auto) 1.06 L [place] # (Auto) 0.63 H Eos # (Auto) 0.41 Baso # (Auto) 0.06 Immature Gran # (Auto) 0.02 Sodium 138 Potassium 4.3 Chloride 104 Carbon Dioxide 29 Anion Gap 5 BUN 19 Creatinine 0.85 D Est Cr Clr Drug Dosing 41.4 eGFR 73.20 BUN/Creatinine Ratio 22.4 H Glucose 71 Calcium 9.1 Medications Administered Home Medications Medication Instructions Recorded Confirmed Last Taken buspirone 5 mg tablet 5 mg PO BID Anxiety 10/31/19 11/30/24 11/29/24 08:00 aspirin 81 mg tablet,delayed 81 mg PO QAM 01/23/21 11/30/24 11/29/24 release sodium chloride 0.65 % nasal spray 2 spray NA DIRECTED PRN 03/24/21 11/30/24 Unknown aerosol (Saline Mist) Congestion budesonide 160 mcg-glycopyr 9 2 inh inhalation [facility]HS 12/17/22 11/30/24 11/29/24 08:00 mcg-formot 4.8 mcg/actuation HFA inhaler (Breztri Aerosphere) levothyroxine 75 mcg tablet 75 mcg PO DAILYBB 07/12/24 11/30/24 11/29/24 clopidogrel 75 mg tablet 75 mg PO QAM #30 tabs 07/14/24 11/30/24 11/29/24 09:00 acetaminophen 160 mg/5 mL (5 mL) 650 mg PO Q6H PRN pain/fever 10/13/24 11/30/24 Unknown oral solution baclofen 10 mg tablet 0 mg PO BID 10/13/24 11/30/24 10/13/24 08:00 cyanocobalamin (vitamin B-12) 500 500 mcg PO DAILY 10/13/24 11/30/24 11/29/24 08:00 mcg tablet (Vitamin B-12) lidocaine 4 % topical patch 1 patch topical DAILY Pain 10/13/24 11/30/24 Unknown ipratropium 0.5 mg-albuterol 3 mg 3 ml NEB Q2H PRN shortness of 10/22/24 11/30/24 Unknown (2.5 mg base)/3 mL nebulization breath or wheezing #180 mL soln sodium chloride 3 % for 3 ml inhalation Q6H PRN thickened 10/22/24 11/30/24 Unknown nebulization secretions 30 days #120 mL potassium chloride 40 mEq/15 mL 40 meq (15 mL) PO DAILY 30 days 11/04/24 11/30/24 Unknown oral liquid #450 mL acetylcysteine 100 mg/mL (10 %) 4 ml inhalation AMHS 11/12/24 11/30/24 11/29/24 09:00 solution atorvastatin 40 mg tablet 40 mg PO HS 11/12/24 11/30/24 11/29/24 09:00 ipratropium 20 mcg-albuterol 100 2 puff inhalation Q6H PRN Wheezing 11/12/24 11/30/24 Unknown mcg/actuation mist for inhalation (Combivent Respimat) isosorbide mononitrate 10 mg tablet 10 mg PO BID #60 tabs 11/17/24 11/30/24 11/29/24 20:00 lorazepam 0.5 mg tablet 0.5 mg sublingual Q8H PRN Anxiety 11/17/24 11/30/24 Unknown or insomnia #30 tabs metoprolol tartrate 50 mg tablet 75 mg (1.5 x 50 mg) PO BID #75 tabs 11/17/24 11/30/24 Unknown venlafaxine 75 mg tablet 75 mg PO TIDM #90 tabs 11/17/24 11/30/24 Unknown cephalexin 250 mg/5 mL oral 500 mg PO AMHS 11/30/24 11/30/24 Unknown suspension bumetanide 1 mg tablet 1 mg PO QAM 12/01/24 12/01/24 Unknown Active Medications Generic Name Dose Route Start Last Admin Trade Name Freq PRN Reason Stop Dose Admin Acetaminophen 650 mg 11/30/24 04:49 12/01/24 12:50 Acetaminophen 325 Mg Tab PO 12/30/24 04:48 650 mg Q4H PRN Administration Pain or Fever Acetylcysteine 4 ml 11/30/24 07:00 12/02/24 07:46 Acetylcysteine 10% Inhal Soln 4 Ml Dispensed By Resp. INH 12/30/24 06:59 4 ml BIDR JUANY Administration Albuterol 3 ml 11/30/24 04:49 12/02/24 07:46 Albut/Ipratrop 3mg/0.5mg Neb 3 Ml Vial NEB 12/30/24 04:48 3 ml Q2H PRN Administration shortness of breath or wheezing Protocol Atorvastatin Calcium 40 mg 11/30/24 21:00 12/01/24 21:28 Atorvastatin 40 Mg Tab PO 12/30/24 20:59 40 mg HS JUANY Administration Baclofen 10 mg 11/30/24 09:00 12/02/24 09:25 Baclofen 10 Mg Tab PO 12/30/24 08:59 10 mg BID JUANY Administration Buspirone HCl 5 mg 11/30/24 09:00 12/02/24 09:25 Buspirone 5 Mg Tab PO 12/30/24 08:59 5 mg BID JUANY Administration Cyanocobalamin 500 mcg 11/30/24 09:00 12/02/24 09:25 Cyanocobalamin (B-12) 500 Mcg Tablet PO 12/30/24 08:59 500 mcg DAILY JUANY Administration Fluticasone Furoate 1 puffs 11/30/24 09:00 12/02/24 09:25 Fluticasone Furoate 200mcg 14 Puffs/Inhaler INH 12/30/24 08:59 1 puffs DAILY JUANY Administration Ipratropium [place] 1 puffs 11/30/24 06:04 11/30/24 10:47 Ipratropium [place] Hfa Inhaler INH 12/30/24 06:03 1 puffs Q6H PRN Administration Wheezing Protocol Isosorbide Mononitrate 10 mg 11/30/24 09:00 12/02/24 09:25 Isosorbide Mononitrate 20 Mg Tab PO 12/30/24 08:59 10 mg BID JUANY Administration Levothyroxine Sodium 75 mcg 11/30/24 06:30 12/02/24 05:59 Levothyroxine Sodium 75 Mcg Tablet PO 12/30/24 06:29 75 mcg DAILYBB JUANY Administration Lidocaine 1 patch 11/30/24 09:00 12/02/24 09:25 Lidocaine 5% 1 Patch TD 12/30/24 08:59 Not Given DAILY JUANY Lorazepam 0.5 mg 11/30/24 04:49 12/01/24 21:28 Lorazepam 0.5 Mg Tab SL 12/30/24 04:48 0.5 mg Q8H PRN Administration Anxiety or insomnia Metoprolol Tartrate 75 mg 11/30/24 09:00 12/02/24 09:26 Metoprolol Tartrate 25 Mg Tab PO 12/30/24 08:59 75 mg QAM JUANY Administration Metoprolol Tartrate 50 mg 11/30/24 21:00 12/01/24 21:30 Metoprolol Tartrate 50 Mg Tab PO 12/30/24 20:59 Not Given PM JUANY Miscellaneous 1 each 11/30/24 21:00 12/01/24 21:29 Remove Lidoderm Patch N/A 12/30/24 20:59 1 each PM JUANY Administration Umeclidinium/Vilanterol 1 puffs 11/30/24 09:00 12/02/24 09:26 Umeclidinium/Vilanterol 62.5/25mcg 7 Puffs/Inhaler INH 12/30/24 08:59 1 puffs DAILY JUANY Administration Venlafaxine HCl 75 mg 11/30/24 08:00 12/02/24 09:25 Venlafaxine Hcl 37.5 Mg Tab PO 12/30/24 07:59 75 mg TIDM JUANY Administration PG Care Time/CCT Total # of Minutes Spent Total Time Spent with Patient: Total time spent is greater than 50% in coordination of care (as documented) at patient's floor/unit and/or counseling patient: Coding Level of Care Code 54058 SUB INP/OBS CARE 2/35MIN Diagnoses GI bleed K92.2 GI bleed type/associated pathology: unspecified gastrointestinal hemorrhage type Pneumonia J18.1 Laterality: left Lung location: lower lobe of lung Pneumonia type: due to unspecified organism Cecal ulcer K63.3 (1) GI bleed GI bleed type/associated pathology: unspecified gastrointestinal hemorrhage type Qualified Code(s): K92.2 - Gastrointestinal hemorrhage, unspecified (2) Pneumonia Laterality: left Lung location: lower lobe of lung Pneumonia type: due to unspecified organism Qualified Code(s): J18.1 - Lobar pneumonia, unspecified organism
--- NOTE | 2024-12-02 19:18 | Hospitalist Progress Note ---
Date of Service December 02, 2024 Assessment & Plan (1) GI bleed: (2) Tracheostomy dependent: (3) Chronic hypoxic respiratory failure, on home oxygen therapy: (4) Acute kidney injury superimposed on CKD: Plan The patient is a 69-year-old female with past medical history including recent pneumonia, chronic respiratory failure with hypoxemia and hypercapnia, presence of tracheostomy, hypertension, ASCVD, HFpEF, CAD s/p PCI, hypothyroidism, right subclavian artery stenosis, PAD, carotid stenosis, and hyponatremia who was admitted with lower GI bleed and acute blood loss anemia. #Lower GI bleed/acute blood loss anemia/cecum ulcer-Hgb baseline ~12.0 g/dL (11/29/2024, 10;57pm), and now down to 11.1 g/dL (12/02/2024, 5:54am). With maroon-colored stool indicative of lower GI bleed. Sigmoidoscopy on 12/01/2024 showed 2 cm cecal ulcer that with active oozing of blood; await biopsy report. Suspect that biopsy will demonstrated ischemic colitis given patient's past medical history of PAD. This should resolve on its own. Appreciate GI consultation - Advance to clear liquid diet and then to heart healthy diet easy to chew as tolerated from there - Follow CBC again in the a.m. - Continue to hold aspirin and Plavix - Await biopsy results to rule out malignancy #BETH/hyperkalemia-with mild BETH on admission now improved with creatinine down to 1.1 from 1.3. Potassium is high at 5.3 and is now improved after small amou nt of IV fluids given and holding home potassium -check BMP in the a.m. - Continue to hold potassium chloride and Bumex from home #Elevated troponin/CAD/hypertension/chronic HFpEF-troponin only minimally elevated at 22 and decreased to 18 on repeat check. 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 and at bedtime #Hyperlipidemia-Continue atorvastatin at bedtime #Anxiety and depression- On buspirone, lorazepam, and venlafaxine as outpatient-recent increase in venlafaxine has improved her depression #Chronic aspiration-secondary to tracheostomy and previous radiation to the neck. Video swallow study in 07/2024 with aspiration of all substances- permissive aspiration decided at that time. VFSS 11/16 again with aspiration with thin and nectar thick liquids, not clearing secretions from vallecula - Meds should all be given in a form that can be crushed and given with pudding - F/u with ENT for laryngoscope within the near future - Advance as tolerated to easy to chew diet and continue good oral hygiene #Hypothyroidism-TSH recently normal at 0.8 - Continue home levothyroxine #Numbness in entire right arm today (12/02/2024, 10:49am). Etiology of unilateral numbness in entire right arm with no corresponding weakness in entire right arm, remains unclear. Await duplex ultrasound of right upper extremity to evaluate for thoracic outlet syndrome. Await CT brain without IV contrast to rule out acute CVA on 12/02/2024. DVT prophylaxis-SCDs Disposition-continued stay on PCU, follow blood counts, possible discharge to home in the next 1-2 days but daughter prefers that the patient not come home till Wednesday Admission and Anticipated Discharge Date Admission Date: November 30, 2024 Subjective "My whole right arm feels numb today. I can move it fine; it is not weak and does not hurt at all when I move it, but it feels numb all over. My left arm is fine." Review of Systems Constitutional: Positive for acute numbness of the entire right arm starting on 12/02/2024, 10:49am. Negative for antecedent/coincident fevers, chills, diaphoresis, cough, wheeze, sore throat, hemoptysis, chest pains, palpitations, pleurisy, nausea, vomiting, diarrhea, abdominal pain, pelvic pain, hematemesis, hematochezia, melena, hematuria, dysuria, frequency, urgency, headaches, dizziness, lightheadedness, visual changes, hearing changes, weakness, falls, syncope, trauma, travel history, sick contacts, or food/drug ingestions novel or new. All other review of systems are reported as negative by the patient on 12/02/2024. Physical Exam Constitutional: General: Comfortable, cooperative, coherent. Wide awake and alert. Not confused, lethargic, or obtunded. Patient speaks in complete, fluent, and articulate sentences without pause, interruption, cough, or wheeze. HEENT: Normocephalic, atraumatic. Extra-ocular muscles intact. Pupils equally round and reactive to light. No nystagmus, gaze paresis, anisocoria, miosis, mydriasis, hyphema, chemosis, scleral injection, conjunctivitis, or pterygium. No otorrhea or rhinorrhea. No pharyngeal discharge or exudate. Neck: Supple, no stridor or bruit. Jugular venous pressure is estimated to be 3 cm above the sternal angle of [place], which is, by definition, 5 cm above the level of the right atrium. Hence, jugular venous pressure of 8 cm is not elevated on 12/02/2024. Lymphatics: No anterior/posterior cervical, infraclavicular, supraclavicular, axillary, epitrochlear, or inguinal adenopathy. Chest: Symmetric rise and fall with respirations. Non-tender to palpation. Lungs: Clear to auscultation and percussion. No audible expiratory wheeze, egophony, pectoriloquy, increase in tactile fremitus, or flatness/dullness to percussion at the bases. Heart: Regular rate and rhythm. S1 and S2 noted. No S3 or S4 summation gallop. No tripartite friction rub. Grade II/ early systolic murmur at left lower sternal border without radiation to the carotids, axilla, or back, and which remains invariant in regards to the respiratory cycle. Abdomen: Soft, non-tender, non-distended. No rebound, guarding, Cowart's sign, or organomegaly. Bowel sounds auscultated in all 4 quadrants. Extremities: No clubbing, cyanosis, or edema. 2+ pedal pulses bilaterally. Skin: No decubitus ulcer, exanthem, or enanthem. Urology: No segovia catheter. No purewick. No urethral discharge. Neurology: Alert and oriented in regards to person, place, time, and situation. DTR+. 5/5 motor strength in all 4 extremities, both proximally and distally. 2 point discrimination within a 5mm spread appears intact in both upper and lower extremities, bilaterally. Psychiatry: No flat affect. No monotone voice. Smiles appropriately. Results & Data Results & Data Vital Signs (Past 12 Hours) Vital Signs Temp Pulse Resp BP Pulse Ox O2 Del Method O2 Flow Rate 12/02/24 16:01 36.5 C 76 18 106/48 L 96 Trach Collar 6 12/02/24 11:41 36.5 C 66 20 109/44 L 97 Trach Collar 6 12/02/24 11:06 Trach Collar 6 12/02/24 07:59 36.3 C L 99 H 20 167/65 H 91 Trach Collar 6 12/02/24 07:46 95 H 18 92 Trach Collar 6 FiO2 12/02/24 16:01 12/02/24 11:41 12/02/24 11:06 28 12/02/24 07:59 12/02/24 07:46 28 Laboratory Results Abnormal lab results 12/02/24 Range/Units 05:54 RBC 3.79 L (4.20-5.40) M/uL Hgb 11.1 L (12.0-16.0) g/dl Hct 34.2 L (37.0-47.0) % Lymph # (Auto) 1.06 L (1.20-3.40) K/uL [place] # (Auto) 0.63 H (0.11-0.59) K/uL BUN/Creatinine Ratio 22.4 H (10-20) PG Care Time/CCT Total # of Minutes Spent Total Time Spent with Patient: Total time spent is greater than 50% in coordination of care (as documented) at patient's floor/unit and/or counseling patient: Coding Level of Care Code 79966 SUB INP/OBS CARE 2/35MIN Diagnoses GI bleed K92.2 GI bleed type/associated pathology: unspecified gastrointestinal hemorrhage type Tracheostomy dependent Z93.0 Chronic hypoxic respiratory failure, on home oxygen therapy J96.11; Z99.81 Acute kidney injury superimposed on CKD N17.9; N18.9 (1) GI bleed GI bleed type/associated pathology: unspecified gastrointestinal hemorrhage type Qualified Code(s): K92.2 - Gastrointestinal hemorrhage, unspecified
--- NOTE | 2024-12-02 20:12 | CT Scan Report ---
CT head without contrast History: Right arm numbness Comparison: None Technique: Using multidetector thin collimation helical acquisition technique, axial, coronal and sagittal CT images from the skull base to the vertex were obtained without intravenous contrast. Dose reduction techniques were achieved by using automatic exposure control and/or adjustment of mA and/or kV according to patient size and/or use of iterative reconstruction technique. Findings: No intracranial hemorrhage, mass-effect, or midline shift. The ventricles are proportionate to the cerebral sulci. The leigh to white matter differentiation of the cerebral hemispheres is preserved. The basal cisterns are patent. There is a few, scattered small sulcal calcifications in the right cerebral hemisphere. Moderate cerebral atrophy. The visualized paranasal sinuses are clear. Mastoid air cells are clear. Impression: No acute intracranial pathology. Electronically signed by Yrn Tran 12-02-2024 8:12 PM
--- NOTE | 2024-12-02 22:09 | Electrocardiogram Report ---
Test Reason : Blood Pressure : */* mmHG Vent. Rate : 91 BPM Atrial Rate : 91 BPM P-R Int : 172 ms QRS Dur : 82 ms QT Int : 370 ms P-R-T Axes : 103 64 113 degrees QTcB Int : 455 ms Poor data quality, interpretation may be adversely affected Normal sinus rhythm Nonspecific ST and T wave abnormality Abnormal ECG When compared with ECG of 12-Nov-2024 19:54, No significant change Confirmed by Lg Varela ([id number]) on 12/02/2024 10:09:22 PM Referred By: REFERRED SELF Confirmed By: Lg Varela
[2024-12-03] MEDS: MoRPHine SULFATE 2 MG/ML CARP IV STA ×2 (00:32→22:16)
--- NOTE | 2024-12-03 18:27 | Hospitalist Progress Note ---
Date of Service December 03, 2024 Assessment & Plan (1) GI bleed: Plan: No mucosal bleeding reported by patient on 12/02/2024 or on 12/03/2024. (2) Tracheostomy dependent: Plan: No SOB/CLARK/cough/wheeze reported by patient on 12/02/2024 or on 12/03/2024 with patient utilizing tracheostomy collar with 6 liters/minute O2. (3) Chronic hypoxic respiratory failure, on home oxygen therapy: Plan: No SOB/CLARK/cough/wheeze reported by patient on 12/02/2024 or on 12/03/2024 with patient utilizing tracheostomy collar with 6 liters/minute O2. (4) Acute kidney injury superimposed on CKD: Plan: RESOLVED s/p hydration with 250 mL of 0.9% NS @ 999 mL/hr (11/29/2024, 10:58pm), 1 liter of 0.9% NS @ 80 mL/hr (11/30/2024, 4:10am), 500 mL of 0.9% NS @ 999 mL/hr (11/30/2024, 9:26pm). BUN 42, creatinine 1.58 (11/29/2024, 10:57pm). BUN 34, creatinine 1.38 (11/30/2024, 1:01pm). BUN 29, creatinine 1.17 (12/01/2024, 5:33am). BUN 19, creatinine 0.85 (12/02/2024, 5:54am). Plan 69 years old female with past medical history of FULL CODE @ home, recent pneumonia, tracheostomy-dependent chronic hypoxic/hypercapnic respiratory failure, hypertension, chronic HFpEF, CAD s/p PCI, hypothyroidism, PAD with right subclavian artery stenosis, PAD, and hyponatremia, who was admitted to the inpatient hospitalist service @ [facility] on 11/30/2024 with the following diagnosis: 1. Acute blood loss anemia due to acute lower GI bleed with 2 cm cecal ulcer (identified on 11/30/2024, 3:00pm sigmoidoscopy), biopsied, and awaiting pathology report as of 12/03/2024. #Lower GI bleed/acute blood loss anemia/cecum ulcer-Hgb baseline ~12.0 g/dL (11/29/2024, 10;57pm), and now down to 11.1 g/dL (12/02/2024, 5:54am). With maroon-colored stool indicative of lower GI bleed. Sigmoidoscopy on 12/01/2024 showed 2 cm cecal ulcer that with active oozing of blood; await biopsy report. Suspect that biopsy will demonstrated ischemic colitis given patient's past medical history of PAD. This should resolve on its own. Appreciate GI consultation - Advance to clear liquid diet and then to heart healthy diet easy to chew as tolerated from there - Follow CBC again in the a.m. - Continue to hold aspirin and Plavix - Await biopsy results to rule out malignancy #BETH/hyperkalemia-with mild BETH on admission now improved with creatinine down to 1.1 from 1.3. Potassium is high at 5.3 and is now improved after small amount of IV fluids given and holding home potassium -check BMP in the a.m. - Continue to hold potassium chloride and Bumex from home #Elevated troponin/CAD/hypertension/chronic HFpEF-troponin only minimally elevated at 22 and decreased to 18 on repeat check. 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 and at bedtime #Hyperlipidemia-Continue atorvastatin at bedtime #Anxiety and depression- On buspirone 5mg PO bid, lorazepam 0.5mg PO q8 prn anxiety, and venlafaxine 75mg PO tid, as outpatient-recent increase in venlafaxine has improved her depression #Chronic aspiration-secondary to tracheostomy and previous radiation to the neck. Video swallow study in 07/2024 with aspiration of all substances- permissive aspiration decided at that time. VFSS 11/16 again with aspiration with thin and nectar thick liquids, not clearing secretions from vallecula - Meds should all be given in a form that can be crushed and given with pudding - F/u with ENT for laryngoscope within the near future - Advance as tolerated to easy to chew diet and continue good oral hygiene #Hypothyroidism-TSH recently normal at 0.840 uIU/mL (11/13/2024, 2:20pm). - Continue home levothyroxine 75ug PO daily. #Numbness in entire right arm today (12/02/2024, 10:49am). Etiology of unilateral numbness in entire right arm with no corresponding weakness in entire right arm, remains unclear. Await duplex ultrasound of right upper extremity to evaluate for thoracic outlet syndrome. Await CT brain without IV contrast to rule out acute CVA on 12/02/2024. DVT prophylaxis-SCDs Disposition-D/C home on 12/04/2024 am. Admission and Anticipated Discharge Date Admission Date: November 30, 2024 Subjective "I am ok today (12/03/2024)." Review of Systems Constitutional: Positive for acute numbness of the entire right arm starting on 12/02/2024, 10:49am. Negative for antecedent/coincident fevers, chills, diaphoresis, cough, wheeze, sore throat, hemoptysis, chest pains, palpitations, pleurisy, nausea, vomiting, diarrhea, abdominal pain, pelvic pain, hematemesis, hematochezia, melena, hematuria, dysuria, frequency, urgency, headaches, dizziness, lightheadedness, visual changes, hearing changes, weakness, paresthesias (e.g., numbness, tingling), falls, syncope, trauma, travel history, sick contacts, or food/drug ingestions novel or new on 12/03/2024. All other review of systems are reported as negative by the patient on 12/03/2024. Physical Exam Constitutional: General: Comfortable, cooperative, coherent. Wide awake and alert. Not confused, lethargic, or obtunded. Patient speaks in complete, fluent, and articulate sentences without pause, interruption, cough, or wheeze. HEENT: Normocephalic, atraumatic. Extra-ocular muscles intact. Pupils equally round and reactive to light. No nystagmus, gaze paresis, anisocoria, miosis, mydriasis, hyphema, chemosis, scleral injection, conjunctivitis, or pterygium. No otorrhea or rhinorrhea. No pharyngeal discharge or exudate. Neck: Supple, no stridor or bruit. Jugular venous pressure is estimated to be 3 cm above the sternal angle of Lenin, which is, by definition, 5 cm above the level of the right atrium. Hence, jugular venous pressure of 8 cm is not elevated on 12/03/2024. Lymphatics: No anterior/posterior cervical, infraclavicular, supraclavicular, axillary, epitrochlear, or inguinal adenopathy. Chest: Symmetric rise and fall with respirations. Non-tender to palpation. Lungs: Clear to auscultation and percussion. No audible expiratory wheeze, egophony, pectoriloquy, increase in tactile fremitus, or flatness/dullness to percussion at the bases. Heart: Regular rate and rhythm. S1 and S2 noted. No S3 or S4 summation gallop. No tripartite friction rub. Grade II/ early systolic murmur at left lower sternal border without radiation to the carotids, axilla, or back, and which remains invariant in regards to the respiratory cycle. Abdomen: Soft, non-tender, non-distended. No rebound, guarding, Cowart's sign, or organomegaly. Bowel sounds auscultated in all 4 quadrants. Extremities: No clubbing, cyanosis, or edema. 2+ pedal pulses bilaterally. Skin: No decubitus ulcer, exanthem, or enanthem. Urology: No segovia catheter. No purewick. No urethral discharge. Neurology: Alert and oriented in regards to person, place, time, and situation. DTR+. 5/5 motor strength in all 4 extremities, both proximally and distally. 2 point discrimination within a 5mm spread appears intact in both upper and lower extremities, bilaterally. Psychiatry: No flat affect. No monotone voice. Smiles appropriately. Results & Data Results & Data Vital Signs (Past 12 Hours) Vital Signs Temp Pulse Resp BP Pulse Ox O2 Del Method O2 Flow Rate 12/03/24 15:33 36.5 C 81 20 123/46 L 95 Trach Collar 6 12/03/24 15:27 Trach Collar 6 12/03/24 11:44 36.5 C 82 18 139/59 L 94 Trach Collar 6 12/03/24 08:00 36.3 C L 99 H 18 158/78 H 93 Trach Collar 6 12/03/24 07:12 84 20 93 Trach Collar 6 FiO2 12/03/24 15:33 12/03/24 15:27 28 12/03/24 11:44 12/03/24 08:00 12/03/24 07:12 28 Laboratory Results Hb 12.0, MCV 89.8, MCHC 32.6 (11/29/2024, 10:57pm). Hb 10.1 (11/30/2024, 8:49am). Hb 9.8, MCV 91.0, MCHC 32.1 (11/30/2024, 1:01pm). Hb 10.0, MCV 90.8, MCHC 31.8 (12/01/2024, 5:33am). Hb 11.1, MCV 90.2, MCHC 32.5 (12/02/2024, 5:54am). BUN 42, creatinine 1.58 (11/29/2024, 10:57pm). BUN 34, creatinine 1.38 (11/30/2024, 1:01pm). BUN 29, creatinine 1.17 (12/01/2024, 5:33am). BUN 19, creatinine 0.85 (12/02/2024, 5:54am). K 4.3 mmol/L (11/29/2024, 10:57pm). K 5.3 mmol/L (11/30/2024, 1:01pm). K 4.2 mmol/L (12/01/2024, 5:33am). K 4.3 mmol/L (12/02/2024, 5:54am). Diagnostic Findings CT brain without IV contrast (12/02/2024, 7:18pm): 1. No acute bleed, mass, or midline shift. Pathology report of 2 cm cecal ulcer biopsied on 12/01/2024, 3:00pm sigmoidoscopy with GI Dr. Merari James): PG Care Time/CCT Total # of Minutes Spent Total Time Spent with Patient: Total time spent is greater than 50% in coordination of care (as documented) at patient's floor/unit and/or counseling patient: Coding Level of Care Code 19841 SUB INP/OBS CARE MIN Diagnoses GI bleed K92.2 GI bleed type/associated pathology: unspecified gastrointestinal hemorrhage type Tracheostomy dependent Z93.0 Chronic hypoxic respiratory failure, on home oxygen therapy J96.11; Z99.81 Acute kidney injury superimposed on CKD N17.9; N18.9 (1) GI bleed GI bleed type/associated pathology: unspecified gastrointestinal hemorrhage type Qualified Code(s): K92.2 - Gastrointestinal hemorrhage, unspecified
[2024-12-03 19:21] LABS: Hematocrit (blood only) 32.8 % (37.0-47.0); Hemoglobin 10.5 g/dl (12.0-16.0); Mean Corpuscular Hemoglobin 29.1 pg (25.0-34.0); Mean Corpuscular Volume 90.9 fL (80.0-100.0); Platelet Count 232 K/uL (130-400); RDW Standard Deviation 45.8 fL (36.4-46.3); Red Blood Count 3.61 M/uL (4.20-5.40); White Blood Count 7.56 K/ul (4.8-10.8)
[2024-12-03 19:38] LABS: Anion Gap 7.0 (3-11); Blood Urea Nitrogen 19.0 mg/dl (6-23); Calcium 8.8 mg/dl (8.6-10.3); Carbon Dioxide 28.0 mmol/L (21-32); Chloride 102.0 mmol/L (98-107); Creatinine Clr Calc Pharmacy 43.6 ml/min; Glucose 90.0 mg/dl (70-99(Fasting)); Potassium 3.9 mmol/L (3.5-5.1); Sodium 137.0 mmol/L (136-145)
[2024-12-03] MEDS ORDERED: ACETAMINOPHEN 500 MG TAB PO PRN (20:18)
[2024-12-03] MEDS: ACETAMINOPHEN 500 MG TAB PO PRN (21:26)
[2024-12-04] MEDS: MoRPHine SULFATE 2 MG/ML CARP IV STA (04:27)
[2024-12-04 06:34] LABS: Hematocrit (blood only) 32.1 % (37.0-47.0); Hemoglobin 10.1 g/dl (12.0-16.0); Immature Granulocytes # (auto) 0.01 K/uL (0.01-0.20); Immature Granulocytes % (auto) 0.2 %; Mean Corpuscular Hemoglobin 28.8 pg (25.0-34.0); Mean Corpuscular Volume 91.5 fL (80.0-100.0); Platelet Count 212 K/uL (130-400); RDW Standard Deviation 45.6 fL (36.4-46.3); Red Blood Count 3.51 M/uL (4.20-5.40); White Blood Count 5.63 K/ul (4.8-10.8)
[2024-12-04 06:56] LABS: Anion Gap 8.0 (3-11); Blood Urea Nitrogen 15.0 mg/dl (6-23); Calcium 8.7 mg/dl (8.6-10.3); Carbon Dioxide 26.0 mmol/L (21-32); Chloride 104.0 mmol/L (98-107); Creatinine Clr Calc Pharmacy 45.0 ml/min; Glucose 86.0 mg/dl (70-99(Fasting)); Potassium 3.5 mmol/L (3.5-5.1); Sodium 138.0 mmol/L (136-145)
[2024-12-04 12:27] VITALS: BP 110/55; RESP 20; TEMP 97.7; O2SAT 97
[2024-12-04 13:55] VITALS: PULSE 92
--- NOTE | 2024-12-04 18:23 | Discharge Summary ---
Discharge Summary Date of Service December 04, 2024 Principal Dx & Hospital Course #1 = Principal Diagnosis (1) GI bleed: cf., Hb 12.0, MCV 89.8, MCHC 32.6 (11/29/2024, 10:57pm). cf., Hb 10.1 (11/30/2024, 8:49am). cf., Hb 9.8, MCV 91.0, MCHC 32.1 (11/30/2024, 1:01pm). cf., Hb 10.0, MCV 90.8, MCHC 31.8 (12/01/2024, 5:33am). cf., Hb 11.1, MCV 90.2, MCHC 32.5 (12/02/2024, 5:54am). cf., Hb 10.5, MCV 90.9, MCHC 32.0 (12/03/2024, 6:39pm). cf., Hb 10.1, MCV 91.5, MCHC 31.5 (12/04/2024, 5:35am). cf., chronic normocytic, normochromic anemia with baseline Hb range, 9.2 g/dL (11/25/2017, 1:45pm) - 11.7 g/dL (11/14/2024, 7:34am). Patient reports no mucosal bleeding and remains hemodynamically stable on 12/02/2024, 12/03/2024, and on discharge date 12/04/2024. Patient underwent 2 cm cecal ulcer biopsy (12/01/2024, 3:00pm sigmoidoscopy, [facility] Dr. Merari James), which reveals: - Nonspecific ulcer. - No tumor identified. - No organisms identified. - Clinical correlation is suggested. at 1506. 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 "extensive plaque within the visualized portions of the aortic arch. Extensive atherosclerotic plaque is noted within the bilateral common carotid, cervical internal carotid and vertebral arteries. There is occlusion of the right subclavian artery and the proximal right vertebral artery with distal reconstitution. The right vertebral artery is diminutive. There is moderate stenosis of the distal left subclavian artery and severe stenosis of the left axillary artery with severe stenosis at the origin of the left vertebral artery. Additional moderate multifocal stenoses within the left vertebral artery are present. There is no aneurysm or dissection within the neck. There is extensive calcified plaque within the mid to distal right common carotid artery which results in severe multifocal stenoses. There is greater than 95% stenosis of the distal right common carotid artery and the proximal right internal carotid artery. There is severe stenosis at the origin of the left common carotid artery with moderate stenoses within the remainder of the left common carotid artery. There is moderate stenosis at the origin of the left internal carotid artery." (as noted on 07/12/2024, 2:39pm CTA neck). (2) Tracheostomy dependent: No SOB/CLARK/cough/wheeze reported by patient on 12/02/2024, 12/03/2024, and 12/04/2024 with patient utilizing tracheostomy collar with 6 liters/minute O2 [id number] at home and in [facility]. Subsequently, patient was discharged back to her home on 12/04/2024 with patient utilizing tracheostomy collar with 6 liters/minute O2 [id number] at home. (3) Chronic hypoxic respiratory failure, on home oxygen therapy: No SOB/CLARK/cough/wheeze reported by patient on 12/02/2024, 12/03/2024, and 12/04/2024 with patient utilizing tracheostomy collar with 6 liters/minute O2 [id number] at home and in [facility]. Subsequently, patient was discharged back to her home on 12/04/2024 with patient utilizing tracheostomy collar with 6 liters/minute O2 [id number] at home. (4) Acute kidney injury superimposed on CKD: RESOLVED s/p hydration with 250 mL of 0.9% NS @ 999 mL/hr (11/29/2024, 10:58pm), 1 liter of 0.9% NS @ 80 mL/hr (11/30/2024, 4:10am), 500 mL of 0.9% NS @ 999 mL/hr (11/30/2024, 9:26pm). BUN 42, creatinine 1.58 (11/29/2024, 10:57pm). BUN 34, creatinine 1.38 (11/30/2024, 1:01pm). BUN 29, creatinine 1.17 (12/01/2024, 5:33am). BUN 19, creatinine 0.85 (12/02/2024, 5:54am). BUN 19, creatinine 0.80 (12/03/2024 6:38pm). BUN 15, creatinine 0.75 (12/04/2024, 5:35am). cf., normal baseline creatinine range, 0.60 (10/20/2017, 1:19am) to 0.85 (11/12/2024, 8:00pm), NO CKD. 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 Gaudencio Bowie) on metoprolol succinate 75mg PO bid, bumex 1mg PO qam, and isosorbide mononitrate 10mg PO bid, chronic euvolemic hyponatremia with baseline Na range, 126-135 mmol/L (01/08/2017 - 11/03/2024), CAD s/p PCI, on ASA 81mg PO daily, plavix 75mg PO daily, and atorvastatin 40mg PO qpm, hypothyroidism on synthroid 75ug PO daily, PAD with right subclavian artery stenosis, PAD, who was admitted to the inpatient hospitalist service @ [facility] on 11/30/2024 with the following diagnosis: 1. Acute blood loss anemia due to acute lower GI bleed with 2 cm cecal ulcer (identified on 11/30/2024, 3:00pm sigmoidoscopy), biopsied, and awaiting pathology report as of 12/03/2024. 2. Acute kidney injury with admission creatinine 1.58 (11/29/2024, 10:57pm), most likely due to acute dehydration from home-scheduled bumex 1mg PO qam. The following medical issues are being addressed: #Lower GI bleed/acute blood loss anemia/cecum ulcer-Hgb baseline ~12.0 g/dL (11/29/2024, 10;57pm), and now down to 11.1 g/dL (12/02/2024, 5:54am). With maroon-colored stool indicative of lower GI bleed. Sigmoidoscopy on 12/01/2024 showed 2 cm cecal ulcer that with active oozing of blood; Suspect that biopsy will demonstrated ischemic colitis given patient's past medical history of PAD. This should resolve on its own. Appreciate GI consultation - Advance to clear liquid diet and then to heart healthy diet easy to chew as tolerated from there - Follow CBC again in the a.m. - Continue to hold aspirin and Plavix - Await biopsy results to rule out malignancy #BETH/hyperkalemia-with mild BETH on admission now improved with creatinine down to 1.1 from 1.3. Potassium is high at 5.3 and is now improved after small amount of IV fluids given and holding home potassium -check BMP in the a.m. - Continue to hold potassium chloride and Bumex from home #Elevated troponin/CAD/hypertension/chronic HFpEF-troponin only minimally elevated at 22 and decreased to 18 on repeat check. She had no chest pain or ischemic changes on EKG and this is retention representative myocardial demand ischemia due to acute blood loss anemia - Holding home Bumex but continue home isosorbide, metoprolol - Holding home aspirin and Plavix due to GI bleed #Tracheostomy dependent/chronic respiratory failure with hypoxemia and hypercapnia/COPD Continue tracheostomy care, supplemental O2 Continue maintenance inhalers, Combivent Respimat, and DuoNebs every 2 hours as needed Continue saline mist sprays, and acetylcysteine inhalation a.m. and at bedtime #Hyperlipidemia-Continue atorvastatin at bedtime #Anxiety and depression- On buspirone 5mg PO bid, lorazepam 0.5mg PO q8 prn anxiety, and venlafaxine 75mg PO tid, as outpatient-recent increase in venlafaxine has improved her depression #Chronic aspiration-secondary to tracheostomy and previous radiation to the neck. Video swallow study in 07/2024 with aspiration of all substances- permissive aspiration decided at that time. VFSS 11/16 again with aspiration with thin and nectar thick liquids, not clearing secretions from vallecula - Meds should all be given in a form that can be crushed and given with pudding - F/u with ENT for laryngoscope within the near future - Advance as tolerated to easy to chew diet and continue good oral hygiene #Hypothyroidism-TSH recently normal at 0.840 uIU/mL (11/13/2024, 2:20pm). - Continue home levothyroxine 75ug PO daily. #Numbness in entire right arm on 12/02/2024, 10:49am: Etiology of unilateral numbness in entire right arm with no corresponding weakness in entire right arm, remains unclear, but is most probably due to severe PAD (peripheral arterial disease) / PVD (peripheral vascular disease): "extensive plaque within the visualized portions of the aortic arch. Extensive atherosclerotic plaque is noted within the bilateral common carotid, cervical internal carotid and vertebral arteries. There is occlusion of the right subclavian artery and the proximal right vertebral artery with distal reconstitution. The right vertebral artery is diminutive. There is moderate jenn nosis of the distal left subclavian artery and severe stenosis of the left axillary artery with severe stenosis at the origin of the left vertebral artery. Additional moderate multifocal stenoses within the left vertebral artery are present. There is no aneurysm or dissection within the neck. There is extensive calcified plaque within the mid to distal right common carotid artery which results in severe multifocal stenoses. There is greater than 95% stenosis of the distal right common carotid artery and the proximal right internal carotid artery. There is severe stenosis at the origin of the left common carotid artery with moderate stenoses within the remainder of the left common carotid artery. There is moderate stenosis at the origin of the left internal carotid artery." (as noted on 07/12/2024, 2:39pm CTA neck). Subsequently, patient underwent CT brain without IV contrast (12/02/2024, 7:18pm) negative for acute bleed, mass, or midline shift. 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 DVT prophylaxis-SCDs Disposition-D/C home on 12/04/2024. Admission HPI Per Admitting Provider The patient is a 69-year-old female with past medical history including pneumonia, chronic hypercapnia, presence of tracheostomy, diuretic induced hypokalemia, labile hypertension, ASCVD, HFpEF with exacerbations, CAD, hypertension, chronic hypoxic respiratory failure on home oxygen therapy, hypothyroidism, right subclavian artery stenosis, PAD, carotid stenosis, and hyponatremia. The patient presents to the emergency department, with her daughter, due to the development of maroon-colored stools over the past 2 days, and then was noted to have bright red blood on toilet paper earlier this evening. She was most recently admitted to [facility] from 11/12-11/17/2024 for pneumonia and COPD exacerbation. Her daughter reports that her stools had been mushy since 1 day after leaving the hospital, and that became more frequent as noted. She takes aspirin and Plavix as directed. She has not had any issues with bleeding in the past. From the ED she received a 250 cc bolus of normal saline, and Tylenol 1 g IV. Troponin was 22.8, creatinine 1.58 with base 0.63, and hemoglobin 12.0. Stool PCR was only positive for Hemoccult positive but he chest x-ray showed emphysema. CT abdomen pelvis showed improved the right pleural effusion. She was then referred for evaluation for admission to the [facility] hospitalist service. Discharge Exam Constitutional General: Comfortable, cooperative, coherent. Wide awake and alert. Not confused, lethargic, or obtunded. Patient speaks in complete, fluent, and articulate sentences without pause, interruption, cough, or wheeze. HEENT: Normocephalic, atraumatic. Extra-ocular muscles intact. Pupils equally round and reactive to light. No nystagmus, gaze paresis, anisocoria, miosis, mydriasis, hyphema, chemosis, scleral injection, conjunctivitis, or pterygium. No otorrhea or rhinorrhea. No pharyngeal discharge or exudate. Neck: Supple, no stridor or bruit. Jugular venous pressure is estimated to be 3 cm above the sternal angle of Lenin, which is, by definition, 5 cm above the level of the right atrium. Hence, jugular venous pressure of 8 cm is not elevated on discharge date 12/04/2024. Breathing comfortably via tracheostomy collar with 6 liters/minute O2 [id number] at home and in [facility] from admission date 11/30/2024 through discharge date 12/04/2024. Lymphatics: No anterior/posterior cervical, infraclavicular, supraclavicular, axillary, epitrochlear, or inguinal adenopathy. Chest: Symmetric rise and fall with respirations. Non-tender to palpation. Lungs: Clear to auscultation and percussion. No audible expiratory wheeze, egophony, pectoriloquy, increase in tactile fremitus, or flatness/dullness to percussion at the bases. Heart: Regular rate and rhythm. S1 and S2 noted. No S3 or S4 summation gallop. No tripartite friction rub. Grade II/ early systolic murmur at left lower sternal border without radiation to the carotids, axilla, or back, and which remains invariant in regards to the respiratory cycle. Abdomen: Soft, non-tender, non-distended. No rebound, guarding, Cowart's sign, or organomegaly. Bowel sounds auscultated in all 4 quadrants. Extremities: No clubbing, cyanosis, or edema. 2+ pedal pulses bilaterally. Skin: No decubitus ulcer, exanthem, or enanthem. Urology: No segovia catheter. No purewick. No urethral discharge. Neurology: Alert and oriented in regards to person, place, time, and situation. DTR+. 5/5 motor strength in all 4 extremities, both proximally and distally. 2 point discrimination within a 5mm spread appears intact in both upper and lower extremities, bilaterally. Psychiatry: No flat affect. No monotone voice. Smiles appropriately. Discharge Plan Discharge Items Patient Disposition: Home - Self-Care Reason For Visit: GI BLEED, ANEMIA Discharge Diagnosis: 1. Acute blood loss anemia due to acute lower GI bleed with 2 cm cecal ulcer (identified on 12/01/2024, 3:00pm sigmoidoscopy, GI Dr. Merari James), biopsied and of unclear etiology (R/O ischemic cecum; R/O cecal carcinoma), and awaiting pathology report as of 12/04/2024, 1:45pm. 2. Chronic hypoxic / hypercapnic respiratory failure due to end-stage COPD on chronic tracheostomy collar with 6 liters/minute [id number]. Condition on Discharge: Fair Activity: Resume your previous activity Lifting: Gradually increase as tolerated Bathing: No limitations Exercise/Sports: Gradually increase as tolerated Weightbearing: Full weightbearing Non-emergency contact: Primary Care Provider Call non-emergency contact if: you have any medication questions Follow-up/Referrals: Paola Wilson MD [Primary Care Provider] - Diet: Heart Healthy Addtl Attending Provider Instructions: See your PCP Dr. Paola Wilson within 5-7 days of hospital discharge for routine follow up visit and to discuss final pathology report for 2 cm cecal ulcer (identified on 12/01/2024, 3:00pm sigmoidoscopy, GI Dr. Merari James), biopsied and of unclear etiology (R/O ischemic cecum; R/O cecal carcinoma), and awaiting pathology report as of 12/04/2024, 1:45pm. Pending Studies at Discharge: Yes Studies:: See your PCP Dr. Paola Wilson within 5-7 days of hospital discharge for routine follow up visit and to discuss final pathology report for 2 cm cecal ulcer (identified on 12/01/2024, 3:00pm sigmoidoscopy, GI Dr. Merari James), biopsied and of unclear etiology (R/O ischemic cecum; R/O cecal carcinoma), and awaiting pathology report as of 12/04/2024, 1:45pm. Stand-Alone Forms: My [facility], Smoking Cessation Medications and DC Order Prescriptions: New metoprolol tartrate 50 mg Tablet 50 mg PO PM Qty: 30 0RF metoprolol tartrate 25 mg Tablet 75 mg PO QAM Qty: 30 0RF Continued buspirone 5 mg tablet 5 mg PO BID Saline Mist 0.65 % aerosol,spray 2 spray NA DIRECTED PRN (Reason: Congestion) Breztri Aerosphere 160-9-4.8 mcg/actuation HFA aerosol inhaler 2 inh INHALATION [facility] aspirin 81 mg Tablet,Delayed Release (Dr/Ec) 81 mg PO QAM ipratropium-albuterol 0.5 mg-3 mg(2.5 mg base)/3 mL Solution For Nebulization 3 ml NEB Q2H PRN (Reason: shortness of breath or wheezing) Qty: 180 0RF sodium chloride 3 % Solution For Nebulization 3 ml INHALATION Q6H PRN (Reason: thickened secretions) 30 Days Qty: 120 0RF levothyroxine 75 mcg tablet 75 mcg PO DAILYBB clopidogrel 75 mg Tablet 75 mg PO QAM Qty: 30 0RF lidocaine 4 % Adhesive Patch,Medicated 1 patch TOPICAL DAILY Rx Instructions: ON BACK FOR 12 HR. THEN REMOVE cyanocobalamin (vitamin B-12) [Vitamin B-12] 500 mcg Tablet 500 mcg PO DAILY baclofen 10 mg Tablet 0 mg PO BID Patient Comments: PRESCRIBED 10MG PO BID; PT TAKES 10MG DAILY PRN acetaminophen 160 mg/5 mL (5 mL) Solution 650 mg PO Q6H PRN (Reason: pain/fever) Patient Comments: PT HAS HARD TIME SWALLOWING PILLS potassium chloride 40 mEq/15 mL liquid 40 meq PO DAILY 30 Days Qty: 450 0RF acetylcysteine 100 mg/mL (10 %) solution 4 ml inhalation [facility] Combivent Respimat 20-100 mcg/actuation mist 2 puff INHALATION Q6H PRN (Reason: Wheezing) Rx Instructions: WITH SPACER atorvastatin 40 mg tablet 40 mg PO HS isosorbide mononitrate 10 mg tablet 10 mg PO BID Qty: 60 0RF lorazepam 0.5 mg Tablet 0.5 mg sublingual Q8H PRN (Reason: Anxiety or insomnia) Qty: 30 0RF venlafaxine 75 mg tablet 75 mg PO TIDM Qty: 90 0RF Rx Instructions: take with food bumetanide 1 mg tablet 1 mg PO QAM Discontinued metoprolol tartrate 50 mg tablet 75 mg PO BID Qty: 75 0RF Rx Instructions: Take 75 mg p.o. every morning and 50 mg p.o. nightly cephalexin 250 mg/5 mL suspension for reconstitution 500 mg PO [facility] Rx Instructions: ordered 11/24/24 for 10 days Discharge Orders: Discharge Order (Routine); Ordered 12/04/24 Ordered By: Chu Mittal Discharge Order- CHF (Routine); Ordered 12/04/24 Ordered By: Chu Mittal Admission Data Admit Date/Time: 11/30/24 03:34 Attending Provider: Chu Mittal Admit Provider: Maurisio Zaidi Primary Care Provider: Paola Wilson Other Providers: Merari James; Maurisio Zaidi Other Interventions: Discharge Summary Assessment (RN) Last Done: 12/04/24 13:53 Hospital Stay Data Consultations 11/30/24 03:10 ED Decision to Admit Stat 11/30/24 04:26 Consult Gastroenterology Routine 11/30/24 04:49 Consult Gastroenterology Routine Procedures Performed Operation Date: 12/01/24 16:45 Actual Procedures p Colonoscopy Biopsy Cytology - Merari James, Diagnostic Imagining Performed 11/29/24 22:31 CT abd pelvis IV con only Stat 12/02/24 19:18 CT Brain [CT head/brain wo con] Stat Pending Results Patient Have Any Pending Studies at Discharge: Yes Discharge Instructions Given to Patient (Per Discharging Provider) See your PCP Dr. Paola Wilson within 5-7 days of hospital discharge for routine follow up visit and to discuss final pathology report for 2 cm cecal ulcer (identified on 12/01/2024, 3:00pm sigmoidoscopy, GI Dr. Merari James), biopsied and of unclear etiology (R/O ischemic cecum; R/O cecal carcinoma), and awaiting pathology report as of 12/04/2024, 1:45pm. Total Time Total Time Spent Total Time Spent (In Minutes): 35 minutes. Of this time period, 19 minutes were spent in coordinating patient's discharge. Coding Level of Care Code 45742 INP/OBS DISCH >30 MIN Diagnoses GI bleed K92.2 GI bleed type/associated pathology: unspecified gastrointestinal hemorrhage type Tracheostomy dependent Z93.0 Chronic hypoxic respiratory failure, on home oxygen therapy J96.11; Z99.81 Acute kidney injury superimposed on CKD N17.9; N18.9
--- NOTE | 2024-12-05 08:33 | Coding Query ---
CODING QUERY To promote full compliance with coding requirements relating to patient care, provider participation is requested in all cases of visual presentation manager uncertainty. Please assist us with the question(s) below: Coding Question(s): Please specify below, in your clinical opinion, regarding documentation of suspect ischemic colitis/ischemic cecum, with documentation of awaiting pathology report as of 12/04/2024 1:45pm and also documentation of, "Patient underwent 2 cm cecal ulcer biopsy (12/01/2024, 3:00pm sigmoidoscopy, [facility] GI Dr. Merari James), which reveals: - Nonspecific ulcer. - No tumor identified. - No organisms identified. - Clinical correlation is suggested. at 1506.". (xx) suspected Ischemic Colitis/Ischemic Cecum is Ruled-Out ( ) suspected Ischemic Colitis/Ischemic Cecum is diagnosed and still suspected Thank you Randi Asher Principal Diagnosis: "that condition established after study, to be chiefly responsible for occasioning the admission of the patient to the hospital for care." Co-Existing Principal Diagnosis: "when two or more diagnoses equally meet the criteria for principal diagnosis as determined by the circumstances of admission, diagnostic work up, and/or therapy provided, and the Alphabetic Index, Tabular List, or another coding guideline does not provide sequencing direction, any one of the diagnoses may be sequenced first." "When the physician has documented what appears to be a current diagnosis in the body of the record, but has not included the diagnosis in the final diagnostic statement, the physician should be asked whether the diagnosis should be added." (Source Coding [facility] 2 QTR90. p3-4) RIGOBERTO
== END 2024-12-04 15:34 | disposition home or self-care (01) | DRG 378 ==
LOC: SUATTDRO → ED 21:10 → EDINP 11-30 03:34 → SUATTDRO 11-30 03:34 → 2S 11-30 04:49

== ENCOUNTER 2024-12-06 12:47 | Inpatient (IN) ==
[2024-12-06 13:32] LABS: Hematocrit (blood only) 36.6 % (37.0-47.0); Hemoglobin 12.3 g/dl (12.0-16.0); Immature Granulocytes # (auto) 0.04 K/uL (0.01-0.20); Immature Granulocytes % (auto) 0.4 %; Mean Corpuscular Hemoglobin 30.3 pg (25.0-34.0); Mean Corpuscular Volume 90.1 fL (80.0-100.0); Platelet Count 295 K/uL (130-400); RDW Standard Deviation 45.1 fL (36.4-46.3); Red Blood Count 4.06 M/uL (4.20-5.40); White Blood Count 9.40 K/ul (4.8-10.8)
[2024-12-06] MEDS: SODIUM CHLORIDE 0.9% 500 ML IV ONE (13:33)
--- NOTE | 2024-12-06 13:39 | Emergency Department Note ---
Impression & Plan Generalized muscle weakness, Heart failure, diastolic, with acute decompensation, Tracheobronchitis ED Provider Note NAME: BHAVNA CAT AGE: 69 SEX: F : 1955 ARRIVES VIA: Ambulance INFORMANT: Patient, EMS ED PROVIDER(S): Clinton Cueva DO CHIEF COMPLAINT: Generalized weakness HPI: The patient is a 69-year-old female who presented to the emergency department from her doctor's office. The patient has a history of heart failure. She has a history of CHF. The patient also has a history of hypertension and peripheral artery disease. The patient also has a trach. The patient was recently admitted to our facility. She had a GI bleed at that time. The patient was felt to be a better candidate for inpatient rehab but she did not wish to stay any further and was discharged to home. The patient was at her family doctor's office today and was sent to the emergency department for reevaluation as well as possible placement for inpatient rehab. ROS: See above HPI for pertinent positives & negatives. A total of 10 systems reviewed and were otherwise negative. PAST MEDICAL HISTORY: See Below PAST SURGICAL HISTORY: See Below FAMILY HISTORY: See Below SOCIAL HISTORY: See Below HOME MEDICATIONS: See Below ALLERGIES: See Below VITALS: See Below PHYSICAL EXAMINATION: GENERAL: The patient is awake and alert. She is frail-appearing. EYES: The conjunctivae are clear. The pupils are round and reactive. EARS, NOSE, MOUTH AND THROAT: The nose is without any evidence of any deformity. NECK: The neck is nontender and supple. Trach site was noted. There is no erythema. RESPIRATORY: Diminished breath sounds are noted throughout. There is no significant wheezing. CARDIOVASCULAR: Regular rate and rhythm noted there no murmurs rubs or gallops normal S1 normal S2. GASTROINTESTINAL: The abdomen is soft. Abdomen is nontender. MUSCULOSKELETAL/EXTREMITIES: There is no evidence of gross deformity full range of motion is noted in the hips and shoulders. SKIN: Skin is warm and dry. There is no significant pedal edema. NEUROLOGIC: Patient is awake alert and oriented x3. Strength is symmetric but diminished. MEDICAL DECISION MAKING: The patient is a 69-year-old female who presented to the emergency department for an evaluation. The patient was recently discharged in our facility. At that time she was here they did try to arrange the patient with inpatient rehab. The patient's been having many chronic problems. She was even seen while palliative medicine consult. Ultimately the patient did wish to be discharged to home. She followed up with her primary care physician today and appears to be not doing well at home. She was sent to the emergency department for reevaluation was possible readmission for reconsideration of inpatient rehab. I discussed patient's condition with the on-call [facility] hospitalist. They have agreed to evaluate the patient in the emergency department for further management and disposition. Triage Nursing notes reviewed. Prior medical records reviewed Vital Signs: reviewed and remarkable for elevated blood pressure. Differential diagnosis: Infection, dehydration, metabolic abnormality, hypo/hyperglycemia, electrolyte disturbance, anemia, hypoxia, cardiac sources, intracerebral event, toxicologic, neurologic, as well as other pathologies. ER treatment provided: See below Diagnostics interpreted by me: ECG: EKG was obtained in the emergency department. My interpretation is normal sinus rhythm at 86 bpm. There is no ectopy. Nonspecific ST depressions were noted with T wave inversions. Poor R wave progression was noted. This was compared to a tracing from November 29, 2024. No changes were noted. Cardiac Monitoring: An order was placed for continuous cardiac monitoring. The monitor shows a rate of 90 bpm with sinus rhythm. Laboratory studies: As stated above and show below. Imaging studies: See below. Radiographic imaging was reviewed by myself Consultation(s): I discussed this case with Dr. Lainez who is on for the [facility] hospitalist group. Past Med/Surg History Problem List (Updated 12/06/24 @ 15:30 by Clinton Cueva DO) Generalized muscle weakness (Acute) Chronic hypercapnia Tracheobronchitis (Acute) Thrush Diuretic-induced hypokalemia Sinus tachycardia Heart failure, diastolic, with acute decompensation (Acute) ASCVD (arteriosclerotic cardiovascular disease) CHF exacerbation Chest pain, rule out acute myocardial infarction Hypertension (Chronic) Hypothyroidism (Chronic) CAD (coronary artery disease) (Chronic) Peripheral arterial disease (Chronic) Subclavian artery stenosis, right (Chronic) Carotid stenosis (Chronic) Hyponatremia (Chronic) Medical History Cecal ulcer GI bleed Tracheostomy dependent Pneumonia Encounter for pre-operative examination Chronic hypoxic respiratory failure, on home oxygen therapy CAD (coronary artery disease) 2007 - LAD stent 2016 - LITTLE to mid LAD CHF (congestive heart failure) Labile hypertension Acute kidney injury superimposed on CKD Femoral artery occlusion Mucus plugging of bronchi Tracheostomy complication Anxiety History of respiratory failure Tracheostomy in place Herniated disc LOWER BACK Carpal tunnel syndrome Laryngeal cancer S/P TRACH + PEG TUBE PLACEMENT, RADIATION Surgical History History of partial gastrectomy due to fistula from PEG tube History of tracheostomy History of laryngoscopy W/ BIOPSY History of heart artery stent S/P percutaneous endoscopic gastrostomy (PEG) tube placement History of bronchoscopy History of tracheostomy History of cardiac cath 2008 - [facility] [place] - 2 STENTS PLACED - FOLLOWS W/ DR. MONTENEGRO 2016 - ABN STRESS TEST [facility] - NO STENTS/ANGIOPLASTY History of tonsillectomy and adenoidectomy Family History Daughter Family history of reaction to anesthesia SLOW TO WAKE Father Family hx of colon cancer Other Colon cancer No pertinent family history Social History Smoking Status: Former smoker Tobacco Type: Cigarettes Cigarettes Per Day: 1-2; Second Hand Exposure: No; Do You Dip or Chew Tobacco: No; Hx Alcohol Use: No Hx Substance Use: No Preferred Language: Malay Communication Ability: Effective Financial Intern Required: No Beliefs That Will Affect Care: None marital status: Current Living Situation: Alone Current Living Situation Comment: daughte visits daily current occupational status: retired Feels Safe at Home: No Is there a partner from a previous relationship who is making you feel unsafe now?: No Assistive Devices: Oxygen - at Night Allergies Allergies Allergy/AdvReac Type Severity Reaction Status Date / Time bee venom protein (honey bee) Allergy Severe Anaphylaxis Verified 11/30/24 00:16 latex Allergy Intermediate Rash Verified 11/30/24 00:16 oxycodone [From Percocet] Allergy Intermediate PER Verified 11/30/24 00:16 GMG--GETS LOOPY. Home Meds Home Medications Medication Instructions Recorded Confirmed buspirone 5 mg tablet 5 mg PO BID Anxiety 10/31/19 12/06/24 aspirin 81 mg tablet,delayed 81 mg PO QAM 01/23/21 12/06/24 release sodium chloride 0.65 % nasal spray 2 spray NA DIRECTED PRN 03/24/21 12/06/24 aerosol (Saline Mist) Congestion budesonide 160 mcg-glycopyr 9 2 inh inhalation AMHS 12/17/22 12/06/24 mcg-formot 4.8 mcg/actuation HFA inhaler (Breztri Aerosphere) levothyroxine 75 mcg tablet 75 mcg PO DAILYBB 07/12/24 12/06/24 acetaminophen 160 mg/5 mL (5 mL) 650 mg PO Q6H PRN pain/fever 10/13/24 12/06/24 oral solution baclofen 10 mg tablet 0 mg PO BID 10/13/24 12/06/24 cyanocobalamin (vitamin B-12) 500 500 mcg PO DAILY 10/13/24 12/06/24 mcg tablet (Vitamin B-12) lidocaine 4 % topical patch 1 patch topical DAILY Pain 10/13/24 12/06/24 acetylcysteine 100 mg/mL (10 %) 4 ml inhalation AMHS 11/12/24 12/06/24 solution atorvastatin 40 mg tablet 40 mg PO HS 11/12/24 12/06/24 ipratropium 20 mcg-albuterol 100 2 puff inhalation Q6H PRN Wheezing 11/12/24 12/06/24 mcg/actuation mist for inhalation (Combivent Respimat) bumetanide 1 mg tablet 1 mg PO QAM 12/01/24 12/06/24 Previous Rx's Medication Instructions Recorded clopidogrel 75 mg tablet 75 mg PO QAM #30 tabs 07/14/24 ipratropium 0.5 mg-albuterol 3 mg 3 ml NEB Q2H PRN shortness of 10/22/24 (2.5 mg base)/3 mL nebulization breath or wheezing #180 mL soln sodium chloride 3 % for 3 ml inhalation Q6H PRN thickened 10/22/24 nebulization secretions 30 days #120 mL isosorbide mononitrate 10 mg tablet 10 mg PO BID #60 tabs 11/17/24 lorazepam 0.5 mg tablet 0.5 mg sublingual Q8H PRN Anxiety 11/17/24 or insomnia #30 tabs venlafaxine 75 mg tablet 75 mg PO TIDM #90 tabs 11/17/24 metoprolol tartrate 25 mg tablet 75 mg (3 x 25 mg) PO QAM #30 tabs 12/04/24 metoprolol tartrate 50 mg tablet 50 mg PO PM #30 tabs 12/04/24 Results & Data (ED) Vital Signs Vital Signs - 24 hr 12/06/24 12:39 12/06/24 13:09 12/06/24 13:16 Temperature 36.8 C Temperature Source Oral Pulse Rate 97 H 86 90 Pulse Rate from SpO2 Sensor Respiratory Rate 22 29 H Respiratory Depth Shallow Respiratory Pattern Regular Blood Pressure 131/78 131/78 Blood Pressure Mean 95 95 Pulse Oximetry 93 97 Oxygen Delivery Method Non-rebreather Non-rebreather Oxygen Flow Rate 8 8 Sepsis Recent Fever Within 48 Hours No Sepsis New/Unexplained Change in Mental Status No Sepsis Action Taken by Nursing No Action Required 12/06/24 13:21 12/06/24 14:21 12/06/24 15:00 Temperature Temperature Source Pulse Rate 88 98 H 90 Pulse Rate from SpO2 Sensor 98 H 90 Respiratory Rate 31 H 20 Respiratory Depth Respiratory Pattern Blood Pressure 182/80 H 195/113 H Blood Pressure Mean 114 140 Pulse Oximetry 87 L 100 Oxygen Delivery Method Oxygen Flow Rate Sepsis Recent Fever Within 48 Hours Sepsis New/Unexplained Change in Mental Status Sepsis Action Taken by [facility] Medications Current Medication List: was personally reviewed by me Laboratory Data Attestation: I reviewed the patient's lab results. 12/06/24 13:12 12/06/24 13:12 Lab Results 12/06/24 12/06/24 Range/Units 13:12 14:15 WBC 9.40 (4.8-10.8) K/ul RBC 4.06 L (4.20-5.40) M/uL Hgb 12.3 (12.0-16.0) g/dl Hct 36.6 L (37.0-47.0) % MCV 90.1 (80.0-100.0) fL MCH 30.3 (25.0-34.0) pg MCHC 33.6 (32.0-36.0) g/dL RDW Std Deviation 45.1 (36.4-46.3) fL RDW Coeff of Jair 13.6 (11.5-14.5) % Plt Count 295 (130-400) K/uL MPV 10.9 (9.4-12.4) fL Immature Gran % (Auto) 0.4 % Neut % (Auto) 79.4 % Lymph % (Auto) 10.3 % [place] % (Auto) 6.9 % Eos % (Auto) 2.4 % Baso % (Auto) 0.6 % Neut # (Auto) 7.45 H (1.40-6.50) K/uL Lymph # (Auto) 0.97 L (1.20-3.40) K/uL [place] # (Auto) 0.65 H (0.11-0.59) K/uL Eos # (Auto) 0.23 (0.00-0.50) K/uL Baso # (Auto) 0.06 (0.00-0.20) K/uL Immature Gran # (Auto) 0.04 (0.01-0.20) K/uL Sodium 136 (136-145) mmol/L Potassium 3.6 (3.5-5.1) mmol/L Chloride 96 L (98-107) mmol/L Carbon Dioxide 32 (21-32) mmol/L Anion Gap 8 (3-11) BUN 15 (6-23) mg/dl Creatinine 0.76 (0.6-1.2) mg/dl Est Cr Clr Drug Dosing 42.8 ml/min eGFR 83.72 BUN/Creatinine Ratio 19.7 (10-20) Glucose 99 (70-99(Fasting)) mg/dl Calcium 9.6 (8.6-10.3) mg/dl Magnesium 1.7 (1.7-2.4) mg/dl Total Bilirubin 0.5 (0.2-1.0) mg/dl AST 30 (13-39) U/L ALT 15 (7-52) U/L Alkaline Phosphatase 97 (34-104) U/L C-Reactive Protein 0.68 H (0-0.5) mg/dl Total Protein 7.9 (6.0-8.3) gm/dl Albumin 3.9 (3.4-5.0) gm/dl Globulin 4.0 (2.5-4.0) gm/dl Albumin/Globulin Ratio 1.0 (0.9-2) Procalcitonin 0.03 (0-0.5) ng/ml TSH 2.405 (0.300-4.500) uIu/ml Urine Color Yellow Urine Appearance Clear (Clear) Urine pH 6.5 (4.5-7.5) Ur Specific [place] 1.009 (1.000-1.030) Urine Protein Negative (Negative) Urine Glucose (UA) Negative (Negative) Urine Ketones Negative (Negative) Urine Blood Negative (Negative) Urine Nitrite Negative (Negative) Urine Bilirubin Negative (Negative) Urine Urobilinogen Negative (Negative) Ur Leukocyte Esterase Trace H (Negative) Urine WBC (Auto) 0-5 (0-5) /hpf Urine RBC (Auto) 0-2 (0-2) /hpf U Hyaline Cast (Auto) 0-2 (0-2) /lpf U Epithel Cells (Auto) 0-2 (0-2) /hpf Urine Bacteria (Auto) None Seen (None Seen) Urine Comment Administered Medications Discontinued Medications Sodium Chloride (Nss) 500 mls @ 999 mls/hr IV .Q31M ONE Stop: 12/06/24 13:46 Last Admin: 12/06/24 13:33 Dose: 999 mls/hr Documented By: TDM Ioversol (Optiray 320 100ml) 94 ml IV ONCE ONE Stop: 12/06/24 14:44 Last Admin: 12/06/24 14:43 Dose: 94 ml Documented By: BRM Imaging Data Attestation: I personally reviewed and interpreted this imaging study as follows: My Impression: CT soft tissue neck was obtained in the emergency department. You can visualize the tracheostomy, airway appears patent, final report below. Radiologist's Impression: Soft Tissue Neck CT 12/06/24 14:01 CT soft tissue neck w con HISTORY: 69 years-old Female chronic trach/worsening globus sensation acute neck pain with difficulty swallowing COMPARISON: Head CT 12/02/2024 TECHNIQUE: Multiple axial CT images of the soft tissues of the neck were obtained with IV contrast. A dose lowering technique was used consistent with the principals of FRANKIE. FINDINGS: Prior bilateral lens repair. Involutional changes with chronic microvascular ischemic disease. Lipoma noted within the right lateral ventricle. Moderate to extensive atherosclerosis. There is high-grade stenosis within the origin of the right subclavian artery. Additional areas of high-grade stenosis noted within the distal right common and proximal right internal carotid arteries. There is a least moderate stenosis at the origin of the left ICA. Study is limited secondary to positioning of the neck. A tracheostomy cannula is present. Soft tissue thickening with irregularity noted within the glottis. The left true vocal fold is partially calcified. On inflammatory stranding is noted surrounding the glottis and upper esophageal sphincter. 1.4 cm precarinal lymph node on image 400. Pulmonary emphysema with mild intralobular septal thickening which may represent pulmonary edema. Subsegmental opacities of the superior segment left lower lobe. Multilevel degenerative changes of the spine. No acute fracture or destructive bone lesion. IMPRESSION: 1. Tracheostomy cannula in place. 2. Nonspecific soft tissue thickening with mild adjacent inflammatory stranding is noted within the region of the glottis and upper esophageal sphincter of unknown chronicity or clinical significance. Findings could be correlated with direct visualization 3. No discrete mass, fluid collection or lymphadenopathy of the neck. 4. Advanced atherosclerosis with multifocal stenoses. 5. Nonspecific mildly enlarged precarinal lymph node. ACT 112: Negative or not required by law. The above report was generated using voice recognition software. It may contain grammatical, syntax or spelling errors. Electronically signed by: Cristopher Tai M.D. 12/06/2024 3:13 PM Discharge Plan Visit Data Chief Complaint: Weakness Stated Complaint: WEAKNESS ED Provider: Clinton Cueva Discharge Problem: Generalized muscle weakness, Heart failure, diastolic, with acute decompensation, Tracheobronchitis Patient Disposition: Being Evaluated by Hospitalist Condition: Fair Forms Stand Alone Forms: My [facility] Prescriptions Prescriptions: No Action buspirone 5 mg tablet 5 mg PO BID Saline Mist 0.65 % aerosol,spray 2 spray NA DIRECTED PRN (Reason: Congestion) Layla Aerosphere 160-9-4.8 mcg/actuation HFA aerosol inhaler 2 inh INHALATION AMHS aspirin 81 mg Tablet,Delayed Release (Dr/Ec) 81 mg PO QAM ipratropium-albuterol 0.5 mg-3 mg(2.5 mg base)/3 mL Solution For Nebulization 3 ml NEB Q2H PRN (Reason: shortness of breath or wheezing) Qty: 180 0RF sodium chloride 3 % Solution For Nebulization 3 ml INHALATION Q6H PRN (Reason: thickened secretions) 30 Days Qty: 120 0RF levothyroxine 75 mcg tablet 75 mcg PO DAILYBB clopidogrel 75 mg Tablet 75 mg PO QAM Qty: 30 0RF lidocaine 4 % Adhesive Patch,Medicated 1 patch TOPICAL DAILY Rx Instructions: ON BACK FOR 12 HR. THEN REMOVE cyanocobalamin (vitamin B-12) [Vitamin B-12] 500 mcg Tablet 500 mcg PO DAILY baclofen 10 mg Tablet 0 mg PO BID Patient Comments: PRESCRIBED 10MG PO BID; PT TAKES 10MG DAILY PRN acetaminophen 160 mg/5 mL (5 mL) Solution 650 mg PO Q6H PRN (Reason: pain/fever) Patient Comments: PT HAS HARD TIME SWALLOWING PILLS acetylcysteine 100 mg/mL (10 %) solution 4 ml inhalation AMHS Combivent Respimat 20-100 mcg/actuation mist 2 puff INHALATION Q6H PRN (Reason: Wheezing) Rx Instructions: WITH SPACER atorvastatin 40 mg tablet 40 mg PO HS isosorbide mononitrate 10 mg tablet 10 mg PO BID Qty: 60 0RF lorazepam 0.5 mg Tablet 0.5 mg sublingual Q8H PRN (Reason: Anxiety or insomnia) Qty: 30 0RF venlafaxine 75 mg tablet 75 mg PO TIDM Qty: 90 0RF Rx Instructions: take with food bumetanide 1 mg tablet 1 mg PO QAM metoprolol tartrate 50 mg Tablet 50 mg PO PM Qty: 30 0RF metoprolol tartrate 25 mg Tablet 75 mg PO QAM Qty: 30 0RF Referrals Referrals: Paola Wilson MD [Primary Care Provider] -
[2024-12-06 13:57] LABS: Alanine Aminotransferase 15.0 U/L (7-52); Albumin Globulin Ratio 1.0 (0.9-2); Albumin Level 3.9 gm/dl (3.4-5.0); Alkaline Phosphatase 97.0 U/L (34-104); Anion Gap 8.0 (3-11); Bilirubin,Total 0.5 mg/dl (0.2-1.0); Blood Urea Nitrogen 15.0 mg/dl (6-23); Calcium 9.6 mg/dl (8.6-10.3); Carbon Dioxide 32.0 mmol/L (21-32); Chloride 96.0 mmol/L (98-107); Creatinine Clr Calc Pharmacy 42.8 ml/min; Globulin 4.0 gm/dl (2.5-4.0); Glucose 99.0 mg/dl (70-99(Fasting)); Magnesium 1.7 mg/dl (1.7-2.4); Potassium 3.6 mmol/L (3.5-5.1); Sodium 136.0 mmol/L (136-145); Total Protein 7.9 gm/dl (6.0-8.3)
[2024-12-06 14:07] LABS: Thyroid Stimulating Hormone 2.405 uIu/ml (0.300-4.500)
--- NOTE | 2024-12-06 14:25 | History & Physical Report ---
Date of Service December 06, 2024 Assessment & Plan (1) Chronic hypercapnia: (2) Tracheobronchitis: (3) Thrush: (4) ASCVD (arteriosclerotic cardiovascular disease): (5) CHF exacerbation: (6) Cecal ulcer: (7) Tracheostomy dependent: (8) Labile hypertension: (9) Anxiety: (10) Tracheostomy in place: Plan #Chronic hypercapnic respiratory failure #Trach dependent #COPD #Rule Out Tracheitis/ tracheal bronc - CT results pending. Clinically consistent with progressive information - fluconazole as noted in thrush below - will order CRP and Pro-Kolton, if inflammatory markers are elevated will utilize broad-spectrum antibiotics, at minimum Unasyn given her aspiration risks - COPD appears to be at baseline at this time - admit to PCU for close airway monitoring, pulmonology consultation and possible bronchoscopy - respiratory therapy consult - hypertonic saline nebs to assist with clearance, continue acetylcysteine neb - will discuss Solu-Medrol versus Decadron for tracheal laryngeal edema #dysphagia #chronic oropharyngeal aspirator - I suspect this is very much related to items above, RAIL PROJECT ENGINEER consult, see FEN below - she has previously demonstrated narrowing of the supraglottic airway, will repeat a CT soft tissue to see if this is playing a role - swallow study 11/16 demonstrated aspiration with thin liquids - likely to arrange for ENT and laryngoscopy as well pending initial clinical course #History of thrush - fluconazole 20 mg IV once daily #HFpEF #diastolic heart failure - continue Bumex, no indication she is decompensated at this time, will monitor closely - telemetry #weakness - PT and OT consultation, given the recent subacute progression suspect she will benefit from a rehab stay #CAD #PAD #subclavian stenosis #carotid stenosis - continue Plavix, isosorbide and aspirin, asymptomatic at this time #hypothyroidism - continue Synthroid #labile hypertension - continue antihypertensives isosorbide and metoprolol - prn labetolol/hydralazine if needed #chronic malnutrition - RD/nutrition consult - she was to have a video swallow done on 911 unsure if that has been completed, consult RAIL PROJECT ENGINEER #anxiety - continue venlafaxine, buspirone - lorazepam as needed #recent GI bleed #cecal ulceration - stable, monitor daily hemoglobin, monitor for any recurrence #FEN - mild dehydration, NS at 75 cc through the night, assess oral intake, ongoing fluids as needed - she had tolerated an easy chew diet in the past #CODE STATUS - full code per her wishes History of Present Illness Chief Complaint: Weakness, fullness in neck, cough Primary Care Provider: Paola Wilson MD 69yo female with a history of CAD s/p PCI, HTN, COPD, laryngeal cancer s/p tracheostomy with chronic respiratory failure on 4 L trach collar, hypothyroidism, PAD with right subclavian artery stenosis and EZIO, here with generalized weakness, malaise and difficulty swallowing. known to be a chronic aspirator. Was just discharged from service here on 12/04. Since discharging to home she has not been able to take much fluid down. As she has tried she has noticed an increase in globus sensation in the neck. Has had increased secretions as well as an increase in cough. No fevers chills or generalized signs of illness. States that at rest she does not notice the symptoms but anytime she tries to cough or swallow she feels the fullness in her neck. She came into the outpatient clinic earlier in the day for recheck and was referred to the emergency department for likely admission given her inability to manage at home. Allergies Allergy/AdvReac Type Severity Reaction Status Date / Time bee venom protein (honey bee) Allergy Severe Anaphylaxis Verified 11/30/24 00:16 latex Allergy Intermediate Rash Verified 11/30/24 00:16 oxycodone [From Percocet] Allergy Intermediate PER Verified 11/30/24 00:16 GMG--GETS LOOPY. Home Medications Medication Instructions Recorded Confirmed Type buspirone 5 mg tablet 5 mg PO BID Anxiety 10/31/19 12/06/24 History aspirin 81 mg tablet,delayed 81 mg PO QAM 01/23/21 12/06/24 History release sodium chloride 0.65 % nasal spray 2 spray NA DIRECTED PRN 03/24/21 12/06/24 History aerosol (Saline Mist) Congestion budesonide 160 mcg-glycopyr 9 2 inh inhalation [facility]HS 12/17/22 12/06/24 History mcg-formot 4.8 mcg/actuation HFA inhaler (Breztri Aerosphere) levothyroxine 75 mcg tablet 75 mcg PO DAILYBB 07/12/24 12/06/24 History clopidogrel 75 mg tablet 75 mg PO QAM #30 tabs 07/14/24 12/06/24 Rx acetaminophen 160 mg/5 mL (5 mL) 650 mg PO Q6H PRN pain/fever 10/13/24 12/06/24 History oral solution baclofen 10 mg tablet 0 mg PO BID 10/13/24 12/06/24 History cyanocobalamin (vitamin B-12) 500 500 mcg PO DAILY 10/13/24 12/06/24 History mcg tablet (Vitamin B-12) lidocaine 4 % topical patch 1 patch topical DAILY Pain 10/13/24 12/06/24 History ipratropium 0.5 mg-albuterol 3 mg 3 ml NEB Q2H PRN shortness of 10/22/24 12/06/24 Rx (2.5 mg base)/3 mL nebulization breath or wheezing #180 mL soln sodium chloride 3 % for 3 ml inhalation Q6H PRN thickened 10/22/24 12/06/24 Rx nebulization secretions 30 days #120 mL acetylcysteine 100 mg/mL (10 %) 4 ml inhalation AMHS 11/12/24 12/06/24 History solution atorvastatin 40 mg tablet 40 mg PO HS 11/12/24 12/06/24 History ipratropium 20 mcg-albuterol 100 2 puff inhalation Q6H PRN Wheezing 11/12/24 12/06/24 History mcg/actuation mist for inhalation (Combivent Respimat) isosorbide mononitrate 10 mg tablet 10 mg PO BID #60 tabs 11/17/24 12/06/24 Rx lorazepam 0.5 mg tablet 0.5 mg sublingual Q8H PRN Anxiety 11/17/24 12/06/24 Rx or insomnia #30 tabs venlafaxine 75 mg tablet 75 mg PO TIDM #90 tabs 11/17/24 12/06/24 Rx bumetanide 1 mg tablet 1 mg PO QAM 12/01/24 12/06/24 History metoprolol tartrate 25 mg tablet 75 mg (3 x 25 mg) PO QAM #30 tabs 12/04/24 12/06/24 Rx metoprolol tartrate 50 mg tablet 50 mg PO PM #30 tabs 12/04/24 12/06/24 Rx Past Med/Surg History Problem List (Updated 12/06/24 @ 15:30 by Clinton Cueva DO) Generalized muscle weakness (Acute) Chronic hypercapnia Tracheobronchitis (Acute) Thrush Diuretic-induced hypokalemia Sinus tachycardia Heart failure, diastolic, with acute decompensation (Acute) ASCVD (arteriosclerotic cardiovascular disease) CHF exacerbation Chest pain, rule out acute myocardial infarction Hypertension (Chronic) Hypothyroidism (Chronic) CAD (coronary artery disease) (Chronic) Peripheral arterial disease (Chronic) Subclavian artery stenosis, right (Chronic) Carotid stenosis (Chronic) Hyponatremia (Chronic) Medical History Cecal ulcer GI bleed Tracheostomy dependent Pneumonia Encounter for pre-operative examination Chronic hypoxic respiratory failure, on home oxygen therapy CAD (coronary artery disease) 2008 - LAD stent 2016 - LITTLE to mid LAD CHF (congestive heart failure) Labile hypertension Acute kidney injury superimposed on CKD Femoral artery occlusion Mucus plugging of bronchi Tracheostomy complication Anxiety History of respiratory failure Tracheostomy in place Herniated disc LOWER BACK Carpal tunnel syndrome Laryngeal cancer S/P TRACH + PEG TUBE PLACEMENT, RADIATION Surgical History 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 Decreased oral appetite as noted in HPI Ear, Nose, Mouth, Throat: decreased appetite as above, minimally productive cough Respiratory: stable oxygen requirement Cardiovascular: Additional Comments: no chest pain Gastrointestinal: no nausea vomit Musculoskeletal: no edema/ swelling Physical Exam Constitutional: awake and alert, appropriate Eyes: sclera clear ENMT: mucous membranes dry, Neck: trach site clear, #[address] Respiratory: coarse throughout, limited air movement, no expiratory phase wheezing Cardiovascular: distant tones, regular rate and rhythm Gastrointestinal (Abdomen): nontender nondistended Musculoskeletal: no edema Skin: no pallor rash or discoloration Results & Data Results & Data Vital Signs (Past 12 Hours) Vital Signs Temp Pulse Resp BP Pulse Ox O2 Del Method O2 Flow Rate 12/06/24 13:21 88 12/06/24 13:16 90 97 Non-rebreather 8 12/06/24 12:39 36.8 C 97 H 22 131/78 93 Non-rebreather 8 Laboratory Results 12/06/24 12/06/24 14:15 13:12 WBC 9.40 RBC 4.06 L Hgb 12.3 Hct 36.6 L MCV 90.1 MCH 30.3 MCHC 33.6 RDW Std Deviation 45.1 RDW Coeff of Jair 13.6 Plt Count 295 MPV 10.9 Immature Gran % (Auto) 0.4 Neut % (Auto) 79.4 Lymph % (Auto) 10.3 [place] % (Auto) 6.9 Eos % (Auto) 2.4 Baso % (Auto) 0.6 Neut # (Auto) 7.45 H Lymph # (Auto) 0.97 L [place] # (Auto) 0.65 H Eos # (Auto) 0.23 Baso # (Auto) 0.06 Immature Gran # (Auto) 0.04 Sodium 136 Potassium 3.6 Chloride 96 L Carbon Dioxide 32 Anion Gap 8 BUN 15 Creatinine 0.76 Est Cr Clr Drug Dosing 42.8 eGFR 83.72 BUN/Creatinine Ratio 19.7 Glucose 99 Calcium 9.6 Magnesium 1.7 Total Bilirubin 0.5 AST 30 ALT 15 Alkaline Phosphatase 97 Total Protein 7.9 Albumin 3.9 Globulin 4.0 Albumin/Globulin Ratio 1.0 TSH 2.405 Urine Comment Diagnostic Findings chest x-ray and CT soft tissue neck pending PG Care Time/CCT Total # of Minutes Spent Total Time Spent with Patient: Total time spent is greater than 50% in coordination of care (as documented) at patient's floor/unit and/or counseling patient: Coding Level of Care Code 28284 INT INP/OBS CARE 3/75MIN Diagnoses Chronic hypercapnia R06.89 Tracheobronchitis J40 Thrush B37.0 ASCVD (arteriosclerotic cardiovascular disease) I25.10 CHF exacerbation I50.9 Cecal ulcer K63.3 Tracheostomy dependent Z93.0 Labile hypertension R09.89 Anxiety F41.[address] Z93.0
[2024-12-06 14:31] LABS: Appearance Urine Clear (Clear); Bacteria Urine Automated None Seen (None Seen); Cast Urine Automated 0-2 /lpf (0-2); Epithelial Cell Urine Auto 0-2 /hpf (0-2); Glucose Urine UA Negative (Negative); RBC Urine Automated 0-2 /hpf (0-2); WBC Urine Automated 0-5 /hpf (0-5)
[2024-12-06] MEDS: OPTIRAY 320 100ml IV ONE (14:43)
--- NOTE | 2024-12-06 15:14 | CT Scan Report ---
CT soft tissue neck w con HISTORY: 69 years-old Female chronic trach/worsening globus sensation acute neck pain with difficult y swallowing COMPARISON: Head CT 12/02/2024 TECHNIQUE: Multiple axial CT images of the soft tissues of the neck were obtained with IV contrast. A dose lowering technique was used consistent with the principals of FRANKIE. FINDINGS: Prior bilateral lens repair. Involutional changes with chronic microvascular ischemic disease. Lipoma noted within the right lateral ventricle. Moderate to extensive atherosclerosis. There is high-grade stenosis within the origin of the right subclavian artery. Additional areas of high-grade stenosis n oted within the distal right common and proximal right internal carotid arteries. There is a least mo derate stenosis at the origin of the left ICA. Study is limited secondary to positioning of the neck. A tracheostomy cannula is present. Soft tissue thickening with irregularity noted within the glottis. The left true vocal fold is partially calcifi ed. On inflammatory stranding is noted surrounding the glottis and upper esophageal sphincter. 1.4 cm precarinal lymph node on image 400. Pulmonary emphysema with mild intralobular septal thickening whi ch may represent pulmonary edema. Subsegmental opacities of the superior segment left lower lobe. Mul tilevel degenerative changes of the spine. No acute fracture or destructive bone lesion. IMPRESSION: 1. Tracheostomy cannula in place. 2. Nonspecific soft tissue thickening with mild adjacent inflammatory stranding is noted within the r egion of the glottis and upper esophageal sphincter of unknown chronicity or clinical significance. F indings could be correlated with direct visualization 3. No discrete mass, fluid collection or lymphadenopathy of the neck. 4. Advanced atherosclerosis with multifocal stenoses. 5. Nonspecific mildly enlarged precarinal lymph node. ACT 112: Negative or not required by law. The above report was generated using voice recognition software. It may contain grammatical, syntax o r spelling errors. Electronically signed by: Cristopher Tai M.D. 12/06/2024 3:13 PM
[2024-12-06 15:37] LABS: Base Excess VBG 7.0 mEq/L; HCO3 VBG 35 mmol/L; Oxygen Saturation VBG < 60.0 %; PCO2 VBG 61 mmHg (38-50); PO2 VBG < 20 mmHg; pH VBG 7.36 (7.36-7.41)
[2024-12-06 15:38] LABS: Influenza A virus by PCR Negative (Neg); Influenza B virus by PCR Negative (Neg); SARS CoV2 RNA(COVID-19) Ceph NEGATIVE (Negative)
--- NOTE | 2024-12-06 15:50 | XRay Report ---
XR chest 1V portable CLINICAL HISTORY: weakness COMPARISON STUDY: 11/29/2024 FINDINGS: Heart size and pulmonary vasculature are normal. Stable elevation of the left hemidiaphragm . No consolidation or pleural effusion seen. No pneumothorax. Stable old right rib fractures. IMPRESSION: No acute findings. ACT 112: Negative or not required by law. Electronically signed by: Hung Pittman M.D. 12/06/2024 3:48 PM
[2024-12-06] MEDS ORDERED: MELATONIN 3 MG TAB PO PRN (16:57)
[2024-12-06] MEDS ORDERED: IPRATROPIUM BROMIDE/ALBUTEROL respimat INH INH PRN (16:57)
[2024-12-06] MEDS ORDERED: ONDANSETRON INJ 2 MG/ML 2 ML VIAL IV PRN (16:57)
[2024-12-06] MEDS ORDERED: ALUMINUM/MAGNESIUM SUSP 30 ML UDC PO PRN (16:57)
[2024-12-06] MEDS ORDERED: SODIUM CHLOR 7% 4 ML NEB NEB PRN (16:57)
[2024-12-06] MEDS ORDERED: SODIUM CHLORIDE 0.65% NA SOLN 45 ML (OCEAN) PRN (16:57)
[2024-12-06] MEDS ORDERED: ALBUTEROL HFA 8 GM INHALER INH PRN (17:22)
[2024-12-06] MEDS ORDERED: IPRATROPIUM BROMIDE HFA INHALER INH PRN (17:22)
[2024-12-06] MEDS: FLUCONAZOLE 200 MG/100 ML BAG IV SCH (17:53)
[2024-12-06] MEDS: VENLAFAXINE HCL 37.5 MG TAB PO SCH (18:00)
[2024-12-06] MEDS: INFLUENZA VACC TS2025-26(65y+)/PF (IIV3) 0.5mL Syr IM ONE (18:01)
[2024-12-06] MEDS: ACETAMINOPHEN 325 MG TAB PO PRN (18:05)
--- NOTE | 2024-12-06 19:10 | Electrocardiogram Report ---
Test Reason : Blood Pressure : */* mmHG Vent. Rate : 86 BPM Atrial Rate : 86 BPM P-R Int : 170 ms QRS Dur : 66 ms QT Int : 364 ms P-R-T Axes : 98 41 97 degrees QTcB Int : 435 ms Normal sinus rhythm Nonspecific ST abnormality Abnormal ECG When compared with ECG of 29-Nov-2024 22:48, T wave inversion more evident in Anterior leads Confirmed by Yrn العراقي ([id number]) on 12/06/2024 7:10:33 PM Referred By: REFERRED SELF Confirmed By: Yrn العراقي
[2024-12-06] MEDS: ACETYLCYSTEINE 10% INHAL SOLN 4 ML **DISPENSED BY RESP. INH SCH (19:24)
[2024-12-06] MEDS: ALBUT/IPRATROP 3MG/0.5MG NEB 3 ML VIAL NEB PRN (19:24)
[2024-12-06] MEDS: ISOSORBIDE MONONITRATE 20 MG TAB PO SCH (20:26)
[2024-12-06] MEDS: ATORVASTATIN 40 MG TAB PO SCH (20:29)
[2024-12-06] MEDS: METOPROLOL TARTRATE 50 MG TAB PO SCH (20:29)
[2024-12-06] MEDS: busPIRone 5 MG TAB PO SCH (20:29)
[2024-12-06] MEDS: REMOVE LIDODERM PATCH SCH (20:37)
[2024-12-06] MEDS ORDERED: NON-FORMULARY MEDICATION (Budesonide-Glycopyr-Formoterol [Breztri Aerosphere] 160-9-4.8 mc INH SCH (21:00)
[2024-12-06] MEDS: LORazepam 0.5 MG TAB SL PRN (23:26)
--- NOTE | 2024-12-07 07:14 | Pulmonary Consultation ---
Date of Consultation December 07, 2024 Assessment & Plan (1) Tracheobronchitis: (2) Heart failure, diastolic, with acute decompensation: (3) COPD (chronic obstructive pulmonary disease): COPD type: unspecified COPD Qualified Code(s): J44.9 - Chronic obstructive pulmonary disease, unspecified (4) Tracheostomy dependent: (5) Chronic hypoxic respiratory failure, on home oxygen therapy: Plan 69-year-old female with a prior history of CAD s/p PCI, HTN, COPD, laryngeal cancer status post radiation and partial resection in 2017, chronic trach placement with hypoxia wears 4L via trach collar at baseline, hypothyroidism, PAD, carotid artery stenosis; who presented to the [facility] ED on 12/06/2024 with weakness, difficulty managing secretions, and difficulty swallowing. Tracheobronchitis -No signs of acute infection. Stoma clean without erythema or purulence -Can hold off on ABX at this time. -Patient does have recent culture data from trach on 11/14/24 with Stenotrophomonas maltophilia. Likely colonized but consider Bactrim if signs of infection do present. -Cont trach care COPD -No bronchospastic -No signs of acute flair -Patient on breztri at home. Cont fluticasone inh daily, Anoro Ellipta daily, PRN duonebs. -Can continue mucomyst and 7% nebs for mucous clearance. Consider theravest if unable to expectorate. Chronic hypoxemic respiratory failure -Maintain SpO2 > 90% given mild pulm HTN seen in the past. -SpO2 on eval this am 94% on 4L trach collar. Dysphagia -Speech therapy should be reengaged if concerns for aspiration -Seen on last visit and ordered easy to chew diet. Noted difficulty and mild aspiration of thin and nectar thick off spoon. Recommended aspiration precautions easy to chew diet. -No signs of aspiration pneumonia Thank you for allowing us to participate in this patients care. Please feel free to reach out with question or concerns. 38 minutes is the time spent reviewing the chart, obtaining history, performing the physical exam, and updating the patient and bedside nurse. Supervising Physician Co-Signing Physician Notes Patient seen and examined. EMR reviewed. Images were independently reviewed and discussed with critical care SAMY. Agree with assessment plan as noted. Patient was admitted with dysphagia. She has had evaluations ongoing in the past. She has a tracheostomy from prior head and neck cancer and is established with [facility] ENT as well as [facility] pulmonary. 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 She has had minimal tracheal secretions and was admitted for dysphagia and questionable placement. Her images were reviewed and I see no evidence of active ongoing infection. Stenotrophomonas will be impossible to eradicate and she is likely a carrier at this point time. Would avoid antibiotics if possible but if she is felt to have a clinical syndrome of tracheitis, Bactrim might be appropriate. Currently I do not think her symptoms would warrant antimicrobial therapy from a respiratory issue. Her issues appear to center on dysphagia and ENT issues. Do not think the pulmonary has anything else to add at this point in time so we will sign off. Feel free to contact us with questions or concerns History of Present Illness Reason for Consultation: Tracheobronchitis/Tracheostomy dependent Attending Physician: Alexandre Lainez MD History of Present Illness 69-year-old female with a prior history of CAD s/p PCI, HTN, COPD, laryngeal cancer status post radiation and partial resection in 2016, chronic trach placement with hypoxia wears 4L via trach collar at baseline, hypothyroidism, PAD, carotid artery stenosis; who presented to the [facility] ED on 12/06/2024 with weakness, difficulty managing secretions, and difficulty swallowing. Of note the patient was recently admitted to [facility] in November for increasing weakness and loss of appetite. During that admission the patient noted that she has had increased cough with sputum production. She noted that she has had trouble swallowing which has been ongoing for several weeks. Given concern for infectious etiology she was treated with Zosyn and azithromycin and transitioned to levaquin. Patient had a sputum culture on 11/14/24 which did show Stenotrophomonas maltophilia which could possibly be a colonization. Patient was discharged on 12/04/24 to home. Patient on 12/06/24 returned home with secretions which she describes as yellow and difficulty swallowing. CT soft tissue neck showed nonspecific soft tissue thickening with mild adjacent inflammatory stranding is noted within the region of the glottis and upper esophageal sphincter but otherwise no obvious signs of infection. Chest x-ray was also negative. Patient was afebrile. WBC 9.40, procal 0.03. RSV, Flu, and COVID negative. Patient admitted to the hospitalist service and pulmonary consulted for possible concern for tracheobronchitis. Patient has a greater than [id number] smoking history and significant secondhand smoke exposure. Patient is currently on Bumex 1 mg daily, Mucomyst nebulizer therapy twice a day, Arnuity/vilanterol/umeclidinium once a day and fluconazole 200 mg IV daily. Allergies Allergy/AdvReac Type Severity Reaction Status Date / Time bee venom protein (honey bee) Allergy Severe Anaphylaxis Verified 11/30/24 00:16 latex Allergy Intermediate Rash Verified 11/30/24 00:16 oxycodone [From Percocet] Allergy Intermediate PER Verified 11/30/24 00:16 GMG--GETS LOOPY. Home Medications Medication Instructions Recorded Confirmed Type buspirone 5 mg tablet 5 mg PO BID Anxiety 10/31/19 12/06/24 History aspirin 81 mg tablet,delayed 81 mg PO QAM 01/23/21 12/06/24 History release sodium chloride 0.65 % nasal spray 2 spray NA DIRECTED PRN 03/24/21 12/06/24 History aerosol (Saline Mist) Congestion budesonide 160 mcg-glycopyr 9 2 inh inhalation AMHS 12/17/22 12/06/24 History mcg-formot 4.8 mcg/actuation HFA inhaler (Breztri Aerosphere) levothyroxine 75 mcg tablet 75 mcg PO DAILYBB 07/12/24 12/06/24 History clopidogrel 75 mg tablet 75 mg PO QAM #30 tabs 07/14/24 12/06/24 Rx acetaminophen 160 mg/5 mL (5 mL) 650 mg PO Q6H PRN pain/fever 10/13/24 12/06/24 History oral solution baclofen 10 mg tablet 0 mg PO BID 10/13/24 12/06/24 History cyanocobalamin (vitamin B-12) 500 500 mcg PO DAILY 10/13/24 12/06/24 History mcg tablet (Vitamin B-12) lidocaine 4 % topical patch 1 patch topical DAILY Pain 10/13/24 12/06/24 History ipratropium 0.5 mg-albuterol 3 mg 3 ml NEB Q2H PRN shortness of 10/22/24 12/06/24 Rx (2.5 mg base)/3 mL nebulization breath or wheezing #180 mL soln sodium chloride 3 % for 3 ml inhalation Q6H PRN thickened 10/22/24 12/06/24 Rx nebulization secretions 30 days #120 mL acetylcysteine 100 mg/mL (10 %) 4 ml inhalation AMHS 11/12/24 12/06/24 History solution atorvastatin 40 mg tablet 40 mg PO HS 11/12/24 12/06/24 History ipratropium 20 mcg-albuterol 100 2 puff inhalation Q6H PRN Wheezing 11/12/24 12/06/24 History mcg/actuation mist for inhalation (Combivent Respimat) isosorbide mononitrate 10 mg tablet 10 mg PO BID #60 tabs 11/17/24 12/06/24 Rx lorazepam 0.5 mg tablet 0.5 mg sublingual Q8H PRN Anxiety 11/17/24 12/06/24 Rx or insomnia #30 tabs venlafaxine 75 mg tablet 75 mg PO TIDM #90 tabs 11/17/24 12/06/24 Rx bumetanide 1 mg tablet 1 mg PO QAM 12/01/24 12/06/24 History metoprolol tartrate 25 mg tablet 75 mg (3 x 25 mg) PO QAM #30 tabs 12/04/24 12/06/24 Rx metoprolol tartrate 50 mg tablet 50 mg PO PM #30 tabs 12/04/24 12/06/24 Rx Patient History Medical History Cecal ulcer GI bleed Tracheostomy dependent Pneumonia Encounter for pre-operative examination Chronic hypoxic respiratory failure, on home oxygen therapy CAD (coronary artery disease) 2007 - LAD stent 2016 - LITTLE to mid LAD CHF (congestive heart failure) Labile hypertension Acute kidney injury superimposed on CKD 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 MONTENEGRO 2016 - ABN STRESS TEST - [facility] - NO STENTS/ANGIOPLASTY History of tonsillectomy and adenoidectomy Family History Daughter Family history of reaction to anesthesia SLOW TO WAKE Father Family hx of colon cancer Other Colon cancer No pertinent family history Social History Smoking Status: Former smoker Tobacco Type: Cigarettes Cigarettes Per Day: 1-2; Second Hand Exposure: No; Do You Dip or Chew Tobacco: No; Hx Alcohol Use: No Hx Substance Use: No Preferred Language: [place] Citizen Communication Ability: Effective Lathe Puller Required: No Beliefs That Will Affect Care: None marital status: Current Living Situation: Alone Current Living Situation Comment: norma visits daily current occupational status: retired Other Information That Helps Us Care for You: No Feels Safe at Home: No Is there a partner from a previous relationship who is making you feel unsafe now?: No Safety Concerns: Afraid for Self Assistive Devices: Oxygen - Continuous and Wheelchair Assistive Devices Comment: Trach Review of Systems 2 Review of Systems: All systems reviewed & are unremarkable except as noted in HPI & below Physical Exam 2 Physical Exam: VITALS: Reviewed. WEIGHT/BMI reviewed. GEN: Chronically ill appearing,, well-developed, NAD. PSYCH: AOx3. Normal memory, mood, and affect. HEENT -Head: NC/AT; -Eyes: PERRL, EOMI. No discharge or redn ess; -Ears: External ears are normal. -Nose: Normal nares. NECK: Supple, with no masses. midline trach site without erythema or drainage. Trach appeared to be out with loose trach ties. CV: RRR, no m/r/g. LUNGS: CTAB, no w/r/c. ABD: Soft, NT/ND, NBS, no masses or organomegaly. : N/A SKIN: Warm, well perfused. No skin rashes or abnormal lesions. MSK: No deformities, Normal gait. EXT: No clubbing, cyanosis, or edema. NEURO: Normal muscle strength and tone. No focal deficits. Results & Data Results & Data Vital Signs (Past 12 Hours) Vital Signs Temp Pulse Resp BP Pulse Ox O2 Del Method FiO2 12/07/24 03:15 36.6 C 81 18 155/65 H 92 Trach Collar 12/06/24 22:36 36.6 C 81 22 105/73 90 Trach Collar 12/06/24 21:00 Trach Collar 12/06/24 19:37 36.4 C L 87 20 170/82 H 91 Trach Collar 12/06/24 19:28 95 H 17 94 Trach Collar 30 Laboratory Results 12/06/24 13:12 12/06/24 13:12 Abnormal Lab Results 12/06/24 12/06/24 12/06/24 13:12 13:55 14:15 WBC 9.40 RBC 4.06 L Hgb 12.3 Hct 36.6 L MCV 90.1 MCH 30.3 MCHC 33.6 RDW Std Deviation 45.1 RDW Coeff of Jair 13.6 Plt Count 295 MPV 10.9 Immature Gran % (Auto) 0.4 Neut % (Auto) 79.4 Lymph % (Auto) 10.3 [place] % (Auto) 6.9 Eos % (Auto) 2.4 Baso % (Auto) 0.6 Neut # (Auto) 7.45 H Lymph # (Auto) 0.97 L [place] # (Auto) 0.65 H Eos # (Auto) 0.23 Baso # (Auto) 0.06 Immature Gran # (Auto) 0.04 VBG pH VBG pCO2 VBG pO2 VBG HCO3 VBG O2 Saturation VBG Base Excess Sodium 136 Potassium 3.6 Chloride 96 L Carbon Dioxide 32 Anion Gap 8 BUN 15 Creatinine 0.76 Est Cr Clr Drug Dosing 42.8 eGFR 83.72 BUN/Creatinine Ratio 19.7 Glucose 99 Calcium 9.6 Magnesium 1.7 Total Bilirubin 0.5 AST 30 ALT 15 Alkaline Phosphatase 97 C-Reactive Protein 0.68 H Total Protein 7.9 Albumin 3.9 Globulin 4.0 Albumin/Globulin Ratio 1.0 Procalcitonin 0.03 TSH 2.405 Urine Color Yellow Urine Appearance Clear Urine pH 6.5 Ur Specific [place] 1.009 Urine Protein Negative Urine Glucose (UA) Negative Urine Ketones Negative Urine Blood Negative Urine Nitrite Negative Urine Bilirubin Negative Urine Urobilinogen Negative Ur Leukocyte Esterase Trace H Urine WBC (Auto) 0-5 Urine RBC (Auto) 0-2 U Hyaline Cast (Auto) 0-2 U Epithel Cells (Auto) 0-2 Urine Bacteria (Auto) None Seen Urine Comment SARS-CoV-2 (PCR) NEGATIVE Influenza Type A (PCR) Negative Influenza Type B (PCR) Negative RSV (RT-PCR) Negative 12/06/24 15:25 WBC RBC Hgb Hct MCV MCH MCHC RDW Std Deviation RDW Coeff of Jair Plt Count MPV Immature Gran % (Auto) Neut % (Auto) Lymph % (Auto) [place] % (Auto) Eos % (Auto) Baso % (Auto) Neut # (Auto) Lymph # (Auto) [place] # (Auto) Eos # (Auto) Baso # (Auto) Immature Gran # (Auto) VBG pH 7.36 VBG pCO2 61 H VBG pO2 < 20 VBG HCO3 35 VBG O2 Saturation < 60.0 VBG Base Excess 7.0 Sodium Potassium Chloride Carbon Dioxide Anion Gap BUN Creatinine Est Cr Clr Drug Dosing eGFR BUN/Creatinine Ratio Glucose Calcium Magnesium Total Bilirubin AST ALT Alkaline Phosphatase C-Reactive Protein Total Protein Albumin Globulin Albumin/Globulin Ratio Procalcitonin TSH Urine Color Urine Appearance Urine pH Ur Specific [place] Urine Protein Urine Glucose (UA) Urine Ketones Urine Blood Urine Nitrite Urine Bilirubin Urine Urobilinogen Ur Leukocyte Esterase Urine WBC (Auto) Urine RBC (Auto) U Hyaline Cast (Auto) U Epithel Cells (Auto) Urine Bacteria (Auto) Urine Comment SARS-CoV-2 (PCR) Influenza Type A (PCR) Influenza Type B (PCR) RSV (RT-PCR) Diagnostic Findings Chest X-Ray 12/06/24 13:16 XR chest 1V portable CLINICAL HISTORY: weakness COMPARISON STUDY: 11/29/2024 FINDINGS: Heart size and pulmonary vasculature are normal. Stable elevation of the left hemidiaphragm. No consolidation or pleural effusion seen. No pneumothorax. Stable old right rib fractures. IMPRESSION: No acute findings. ACT 112: Negative or not required by law. Electronically signed by: Hung Pittman M.D. 12/06/2024 3:[address] Tissue Neck CT 12/06/24 14:01 CT soft tissue neck w con HISTORY: 69 years-old Female chronic trach/worsening globus sensation acute neck pain with difficulty swallowing COMPARISON: Head CT 12/02/2024 TECHNIQUE: Multiple axial CT images of the soft tissues of the neck were obtained with IV contrast. A dose lowering technique was used consistent with the principals of FRANKIE. FINDINGS: Prior bilateral lens repair. Involutional changes with chronic microvascular ischemic disease. Lipoma noted within the right lateral ventricle. Moderate to extensive atherosclerosis. There is high-grade stenosis within the origin of the right subclavian artery. Additional areas of high-grade stenosis noted within the distal right common and proximal right internal carotid arteries. There is a least moderate stenosis at the origin of the left ICA. Study is limited secondary to positioning of the neck. A tracheostomy cannula is present. Soft tissue thickening with irregularity noted within the glottis. The left true vocal fold is partially calcified. On inflammatory stranding is noted surrounding the glottis and upper esophageal sphincter. 1.4 cm precarinal lymph node on image 400. Pulmonary emphysema with mild intralobular septal thickening which may represent pulmonary edema. Subsegmental opacities of the superior segment left lower lobe. Multilevel degenerative changes of the spine. No acute fracture or destructive bone lesion. IMPRESSION: 1. Tracheostomy cannula in place. 2. Nonspecific soft tissue thickening with mild adjacent inflammatory stranding is noted within the region of the glottis and upper esophageal sphincter of unknown chronicity or clinical significance. Findings could be correlated with direct visualization 3. No discrete mass, fluid collection or lymphadenopathy of the neck. 4. Advanced atherosclerosis with multifocal stenoses. 5. Nonspecific mildly enlarged precarinal lymph node. ACT 112: Negative or not required by law. The above report was generated using voice recognition software. It may contain grammatical, syntax or spelling errors. Electronically signed by: Cristopher Tai M.D. 12/06/2024 3:13 PM PG Care Time/CCT Total # of Minutes Spent Total Time Spent with Patient: Total time spent is greater than 50% in coordination of care (as documented) at patient's floor/unit and/or counseling patient: Coding Level of Care Code 83186 IN/OBS CONSULT LVL 2,35M Diagnoses Tracheobronchitis J40 Heart failure, diastolic, with acute decompensation I50.33 COPD (chronic obstructive pulmonary disease) J44.9 COPD type: unspecified COPD Tracheostomy dependent Z93.0 Chronic hypoxic respiratory failure, on home oxygen therapy J96.11; Z99.81
[2024-12-07] MEDS: FLUTICASONE FUROATE 200MCG 14 PUFFS/INHALER INH SCH (08:17)
[2024-12-07] MEDS: METOPROLOL TARTRATE 25 MG TAB PO SCH (08:17)
[2024-12-07] MEDS: UMECLIDINIUM/VILANTEROL 62.5/25MCG 7 PUFFS/INHALER INH SCH (08:17)
[2024-12-07] MEDS: BUMETANIDE 1 MG TAB PO SCH (08:18)
[2024-12-07] MEDS: ASPIRIN 81 MG ECTAB PO SCH (08:18)
[2024-12-07] MEDS: LIDOCAINE 5% 1 PATCH TD SCH (08:18)
[2024-12-07] MEDS: LEVOTHYROXINE SODIUM 75 MCG TABLET PO SCH (08:18)
[2024-12-07] MEDS: CLOPIDOGREL BISULFATE 75 MG TAB PO SCH (08:19)
[2024-12-07] MEDS: CYANOCOBALAMIN (B-12) 500 MCG TABLET PO SCH (08:19)
--- NOTE | 2024-12-07 13:22 | Hospitalist Progress Note ---
Date of Service December 07, 2024 Assessment & Plan (1) Chronic hypercapnia: (2) Tracheobronchitis: (3) Thrush: (4) ASCVD (arteriosclerotic cardiovascular disease): (5) CHF exacerbation: (6) Cecal ulcer: (7) Tracheostomy dependent: (8) Labile hypertension: (9) Anxiety: (10) Tracheostomy in place: Plan #Chronic hypercapnic respiratory failure #Trach dependent #COPD #Rule Out Tracheitis/ tracheal bronc - CT results pending. Clinically consistent with progressive . Symptoms modestly improved this morning - will order CRP and Pro-Kolton unremarkable at this time - COPD appears to be at baseline at this time - can downgrade from PCU. Continue for consult. No evidence of active infection for tracheobronchitis this morning. Consider Bactrim versus broad- spectrum coverage if things change- respiratory therapy consult - tracheal aspirate culture has yet to be collected. Will have RT collect and monitor close - hypertonic saline nebs to assist with clearance, continue acetylcysteine neb - will discuss Solu-Medrol versus Decadron for tracheal laryngeal edema #dysphagia #chronic oropharyngeal aspirator - I suspect this is very much related to items above, TIMEKEEPING SUPERVISOR consult, see FEN below - she has previously demonstrated narrowing of the supraglottic airway, will repeat a CT soft tissue to see if this is playing a role - swallow study 11/16 demonstrated aspiration with thin liquids - likely to arrange for ENT and laryngoscopy as well pending initial clinical course #History of thrush - continue fluconazole 20 mg IV once daily #HFpEF #diastolic heart failure - continue Bumex, no indication she is decompensated at this time, will monitor closely - telemetry #weakness - PT and OT consultation, given the recent subacute progression suspect she will benefit from a rehab stay #CAD #PAD #subclavian stenosis #carotid stenosis - continue Plavix, isosorbide and aspirin, asymptomatic at this time #hypothyroidism - continue Synthroid #labile hypertension - continue antihypertensives isosorbide and metoprolol - prn labetolol/hydralazine if needed #chronic malnutrition - RD/nutrition consult - she was to have a video swallow done on 911 unsure if that has been completed, consult TIMEKEEPING SUPERVISOR #anxiety - continue venlafaxine, buspirone - lorazepam as needed #recent GI bleed #cecal ulceration - stable, monitor daily hemoglobin, monitor for any recurrence #FEN - mild dehydration, NS at 75 cc through the night, assess oral intake, ongoing fluids as needed - she had tolerated an easy chew diet in the past #CODE STATUS - full code per her wishes Admission and Anticipated Discharge Date Admission Date: December 06, 2024 Subjective Doing okay this morning. Still has some of the globus sensation in her throat. But states that things are a bit better this morning. No fevers chills or generalized signs of illness. She is stable still clean sputum and manage her trach cares independently. No new or different symptoms. She says she was able to eat okay this morning, no problems with eliminations Physical Exam Constitutional: awake and alert, appropriate Eyes: sclera clear ENMT: mucous membranes dry, Neck: trach site clear, #[address] Respiratory: coarse throughout, limited air movement, no expiratory phase wheezing Cardiovascular: distant tones, regular rate and rhythm Gastrointestinal (Abdomen): nontender nondistended Musculoskeletal: no edema Skin: no pallor rash or discoloration Results & Data Results & Data Vital Signs (Past 12 Hours) Vital Signs Temp Pulse Resp BP Pulse Ox O2 Del Method O2 Flow Rate 12/07/24 11:40 36.6 C 76 19 136/68 100 Trach Collar 8 12/07/24 11:27 Trach Collar 12/07/24 07:29 36.5 C 89 19 187/64 H 93 Trach Collar 12/07/24 03:15 36.6 C 81 18 155/65 H 92 Trach Collar Laboratory Results 12/06/24 12/06/24 12/06/24 15:25 14:15 13:55 WBC RBC Hgb Hct MCV MCH MCHC RDW Std Deviation RDW Coeff of Jair Plt Count MPV Immature Gran % (Auto) Neut % (Auto) Lymph % (Auto) [place] % (Auto) Eos % (Auto) Baso % (Auto) Neut # (Auto) Lymph # (Auto) [place] # (Auto) Eos # (Auto) Baso # (Auto) Immature Gran # (Auto) VBG pH 7.36 VBG pCO2 61 H VBG pO2 < 20 VBG HCO3 35 VBG O2 Saturation < 60.0 VBG Base Excess 7.0 Sodium Potassium Chloride Carbon Dioxide Anion Gap BUN Creatinine Est Cr Clr Drug Dosing eGFR BUN/Creatinine Ratio Glucose Calcium Magnesium Total Bilirubin AST ALT Alkaline Phosphatase C-Reactive Protein Total Protein Albumin Globulin Albumin/Globulin Ratio Procalcitonin TSH Urine Color Yellow Urine Appearance Clear Urine pH 6.5 Ur Specific [place] 1.009 Urine Protein Negative Urine Glucose (UA) Negative Urine Ketones Negative Urine Blood Negative Urine Nitrite Negative Urine Bilirubin Negative Urine Urobilinogen Negative Ur Leukocyte Esterase Trace H Urine WBC (Auto) 0-5 Urine RBC (Auto) 0-2 U Hyaline Cast (Auto) 0-2 U Epithel Cells (Auto) 0-2 Urine Bacteria (Auto) None Seen Urine Comment SARS-CoV-2 (PCR) NEGATIVE Influenza Type A (PCR) Negative Influenza Type B (PCR) Negative RSV (RT-PCR) Negative 12/06/24 13:12 WBC 9.40 RBC 4.06 L Hgb 12.3 Hct 36.6 L MCV 90.1 MCH 30.3 MCHC 33.6 RDW Std Deviation 45.1 RDW Coeff of Jair 13.6 Plt Count 295 MPV 10.9 Immature Gran % (Auto) 0.4 Neut % (Auto) 79.4 Lymph % (Auto) 10.3 [place] % (Auto) 6.9 Eos % (Auto) 2.4 Baso % (Auto) 0.6 Neut # (Auto) 7.45 H Lymph # (Auto) 0.97 L [place] # (Auto) 0.65 H Eos # (Auto) 0.23 Baso # (Auto) 0.06 Immature Gran # (Auto) 0.04 VBG pH VBG pCO2 VBG pO2 VBG HCO3 VBG O2 Saturation VBG Base Excess Sodium 136 Potassium 3.6 Chloride 96 L Carbon Dioxide 32 Anion Gap 8 BUN 15 Creatinine 0.76 Est Cr Clr Drug Dosing 42.8 eGFR 83.72 BUN/Creatinine Ratio 19.7 Glucose 99 Calcium 9.6 Magnesium 1.7 Total Bilirubin 0.5 AST 30 ALT 15 Alkaline Phosphatase 97 C-Reactive Protein 0.68 H Total Protein 7.9 Albumin 3.9 Globulin 4.0 Albumin/Globulin Ratio 1.0 Procalcitonin 0.03 TSH 2.405 Urine Color Urine Appearance Urine pH Ur Specific [place] Urine Protein Urine Glucose (UA) Urine Ketones Urine Blood Urine Nitrite Urine Bilirubin Urine Urobilinogen Ur Leukocyte Esterase Urine WBC (Auto) Urine RBC (Auto) U Hyaline Cast (Auto) U Epithel Cells (Auto) Urine Bacteria (Auto) Urine Comment SARS-CoV-2 (PCR) Influenza Type A (PCR) Influenza Type B (PCR) RSV (RT-PCR) PG Care Time/CCT Total # of Minutes Spent Total Time Spent with Patient: Total time spent is greater than 50% in coordination of care (as documented) at patient's floor/unit and/or counseling patient: Coding Level of Care Code 87027 SUB INP/OBS CARE 2/35MIN Diagnoses Chronic hypercapnia R06.89 Tracheobronchitis J40 Thrush B37.0 ASCVD (arteriosclerotic cardiovascular disease) I25.10 CHF exacerbation I50.9 Cecal ulcer K63.3 Tracheostomy dependent Z93.0 Labile hypertension R09.89 Anxiety F41.[address] Z93.0
[2024-12-08 08:19] LABS: Hematocrit (blood only) 33.7 % (37.0-47.0); Hemoglobin 10.9 g/dl (12.0-16.0); Immature Granulocytes # (auto) 0.02 K/uL (0.01-0.20); Immature Granulocytes % (auto) 0.3 %; Mean Corpuscular Hemoglobin 29.0 pg (25.0-34.0); Mean Corpuscular Volume 89.6 fL (80.0-100.0); Platelet Count 264 K/uL (130-400); RDW Standard Deviation 45.8 fL (36.4-46.3); Red Blood Count 3.76 M/uL (4.20-5.40); White Blood Count 6.06 K/ul (4.8-10.8)
[2024-12-08 08:36] LABS: Anion Gap 6.0 (3-11); Blood Urea Nitrogen 17.0 mg/dl (6-23); Calcium 8.7 mg/dl (8.6-10.3); Carbon Dioxide 33.0 mmol/L (21-32); Chloride 99.0 mmol/L (98-107); Creatinine Clr Calc Pharmacy 55.1 ml/min; Glucose 89.0 mg/dl (70-99(Fasting)); Potassium 2.9 mmol/L (3.5-5.1); Sodium 138.0 mmol/L (136-145)
[2024-12-08] MEDS: POTASSIUM CHLORIDE / WTR 10 MEQ/100 ML PLCT IV SCH (09:29)
[2024-12-08] MEDS: BACLOFEN 10 MG TAB PO PRN (09:44)
[2024-12-08] MEDS: POTASSIUM CHLORIDE 20 MEQ/15 ML UDC PO SCH (10:24)
--- NOTE | 2024-12-08 14:21 | Hospitalist Progress Note ---
Date of Service December 08, 2024 Assessment & Plan (1) Chronic hypercapnia: (2) Tracheobronchitis: (3) Thrush: (4) ASCVD (arteriosclerotic cardiovascular disease): (5) CHF exacerbation: (6) Cecal ulcer: (7) Tracheostomy dependent: (8) Labile hypertension: (9) Anxiety: (10) Tracheostomy in place: Plan #Chronic hypercapnic respiratory failure #Trach dependent #COPD #Rule Out Tracheitis/ tracheal bronc - CT results pending. Clinically consistent with progressive . Symptoms modestly improved this morning - will order CRP and Pro-[place] unremarkable at this time - COPD appears to be at baseline at this time - can downgrade from PCU. Continue for consult. No evidence of active infection for tracheobronchitis this morning. Consider Bactrim versus broad- spectrum coverage if things change- respiratory therapy consult - tracheal aspirate culture growing stenotrophomonas maltophilia, it does not appear that she has been on Bactrim recently to adequately treat - hypertonic saline nebs to assist with clearance, continue acetylcysteine neb - clinically improving with the fluconazole IV. Will continue. #dysphagia #chronic oropharyngeal aspirator - I suspect this is very much related to items above, FLOORLEADER consult, see FEN below - she has previously demonstrated narrowing of the supraglottic airway, will repeat a CT soft tissue to see if this is playing a role - swallow study 11/16 demonstrated aspiration with thin liquids - likely to arrange for ENT and laryngoscopy as well pending initial clinical course #History of thrush - continue fluconazole 20 mg IV once daily as above #HFpEF #diastolic heart failure - continue Bumex, no indication she is decompensated at this time, will monitor closely - telemetry #weakness - PT and OT consultation, given the recent subacute progression suspect she will benefit from a rehab stay #CAD #PAD #subclavian stenosis #carotid stenosis - continue Plavix, isosorbide and aspirin, asymptomatic at this time #hypothyroidism - continue Synthroid #labile hypertension - continue antihypertensives isosorbide and metoprolol - prn labetolol/hydralazine if needed #chronic malnutrition - RD/nutrition consult - she was to have a video swallow done on 911 unsure if that has been completed, consult FLOORLEADER #anxiety - continue venlafaxine, buspirone - lorazepam as needed #recent GI bleed #cecal ulceration - stable, monitor daily hemoglobin, monitor for any recurrence #FEN - mild dehydration, NS at 75 cc through the night, assess oral intake, ongoing fluids as needed - she had tolerated an easy chew diet in the past #CODE STATUS - full code per her wishes Admission and Anticipated Discharge Date Admission Date: December 06, 2024 Subjective doing okay this morning. We have started some IV potassium and it is burning quite a bit. She feels that she is swallowing better so we will switch to oral supplementation. Will check this afternoon. Otherwise she thinks her sputum is thinning and clearing after starting with fluconazole. No fevers chills or other generalized signs of illness. No other acute concerns or events per patient or nursing staff Physical Exam Constitutional: awake and alert, appropriate Eyes: sclera clear ENMT: mucous membranes dry, Neck: trach site clear, #[address] Respiratory: coarse throughout, limited air movement, no expiratory phase wheezing Cardiovascular: distant tones, regular rate and rhythm Gastrointestinal (Abdomen): nontender nondistended Musculoskeletal: no edema Skin: no pallor rash or discoloration Results & Data Results & Data Vital Signs (Past 12 Hours) Vital Signs Temp Pulse Pulse Resp BP Pulse Ox O2 Del Method 12/08/24 11:42 36.8 C 74 18 156/64 H 100 Trach Collar 12/08/24 09:00 Trach Collar 12/08/24 08:01 36.7 C 88 18 185/74 H 99 Trach Collar 12/08/24 08:00 76 12/08/24 07:07 90 18 92 Trach Collar 12/08/24 04:12 36.6 C 76 18 156/60 H 93 Room Air O2 Flow Rate FiO2 12/08/24 11:42 12/08/24 09:00 30 12/08/24 08:01 12/08/24 08:00 12/08/24 07:07 7 30 12/08/24 04:12 Laboratory Results 12/07/24 13:25 Gram Stain - Final Sputum,Trach Sputum Culture - Preliminary Stenotrophomonas maltophilia 12/08/24 07:21 WBC 6.06 RBC 3.76 L Hgb 10.9 L Hct 33.7 L MCV 89.6 MCH 29.0 MCHC 32.3 RDW Std Deviation 45.8 RDW Coeff of Jair 14.1 Plt Count 264 MPV 10.7 Immature Gran % (Auto) 0.3 Neut % (Auto) 65.4 Lymph % (Auto) 18.0 [place] % (Auto) 10.2 Eos % (Auto) 5.4 Baso % (Auto) 0.7 Neut # (Auto) 3.96 Lymph # (Auto) 1.09 L [place] # (Auto) 0.62 H Eos # (Auto) 0.33 Baso # (Auto) 0.04 Immature Gran # (Auto) 0.02 Sodium 138 Potassium 2.9 L Chloride 99 Carbon Dioxide 33 H Anion Gap 6 BUN 17 Creatinine 0.60 Est Cr Clr Drug Dosing 55.1 eGFR 95.90 BUN/Creatinine Ratio 28.3 H Glucose 89 Calcium 8.7 C-Reactive Protein 0.58 H Procalcitonin < 0.02 PG Care Time/CCT Total # of Minutes Spent Total Time Spent with Patient: Total time spent is greater than 50% in coordination of care (as documented) at patient's floor/unit and/or counseling patient: Coding Level of Care Code 88358 SUB INP/OBS CARE 2/35MIN Diagnoses Chronic hypercapnia R06.89 Tracheobronchitis J40 Thrush B37.0 ASCVD (arteriosclerotic cardiovascular disease) I25.10 CHF exacerbation I50.9 Cecal ulcer K63.3 Tracheostomy dependent Z93.0 Labile hypertension R09.89 Anxiety F41.[address] Z93.0
[2024-12-08 17:55] LABS: Anion Gap 9.0 (3-11); Blood Urea Nitrogen 16.0 mg/dl (6-23); Calcium 8.8 mg/dl (8.6-10.3); Carbon Dioxide 29.0 mmol/L (21-32); Chloride 100.0 mmol/L (98-107); Creatinine Clr Calc Pharmacy 50.1 ml/min; Glucose 83.0 mg/dl (70-99(Fasting)); Potassium 4.9 mmol/L (3.5-5.1); Sodium 138.0 mmol/L (136-145)
[2024-12-08] MEDS: MoRPHine SULFATE 2 MG/ML CARP IV PRN (18:15)
[2024-12-09 06:13] LABS: Hematocrit (blood only) 33.9 % (37.0-47.0); Hemoglobin 11.2 g/dl (12.0-16.0); Immature Granulocytes # (auto) 0.02 K/uL (0.01-0.20); Immature Granulocytes % (auto) 0.3 %; Mean Corpuscular Hemoglobin 30.2 pg (25.0-34.0); Mean Corpuscular Volume 91.4 fL (80.0-100.0); Platelet Count 266 K/uL (130-400); RDW Standard Deviation 47.3 fL (36.4-46.3); Red Blood Count 3.71 M/uL (4.20-5.40); White Blood Count 7.26 K/ul (4.8-10.8)
[2024-12-09 06:38] LABS: Anion Gap 2.0 (3-11); Blood Urea Nitrogen 15.0 mg/dl (6-23); Calcium 9.0 mg/dl (8.6-10.3); Carbon Dioxide 32.0 mmol/L (21-32); Chloride 104.0 mmol/L (98-107); Creatinine Clr Calc Pharmacy 51.7 ml/min; Glucose 90.0 mg/dl (70-99(Fasting)); Potassium 5.6 mmol/L (3.5-5.1); Sodium 138.0 mmol/L (136-145)
--- NOTE | 2024-12-09 13:25 | Hospitalist Progress Note ---
Date of Service December 09, 2024 Assessment & Plan (1) Chronic hypercapnia: (2) Tracheobronchitis: (3) Thrush: (4) ASCVD (arteriosclerotic cardiovascular disease): (5) CHF exacerbation: (6) Cecal ulcer: (7) Tracheostomy dependent: (8) Labile hypertension: (9) Anxiety: (10) Tracheostomy in place: Plan #Chronic hypercapnic respiratory failure #Trach dependent #COPD #Rule Out Tracheitis/ tracheal bronc - initial interval improvement but now with increased sputum thickness discoloration. Stenotrophomonas growing in sputum was present on the last culture last hospitalization as well - uncertain whether this is a pathogenic colonization versus routine. Discu ssed with the patient and family their preference is to start Bactrim today and monitor closely. - Repeat sputum culture 24 to 48-hour - COPD appears to be at baseline at this time - hypertonic saline nebs to assist with clearance, continue acetylcysteine neb - clinically improving with the fluconazole IV. Will continue. # hyperkalemia - mild. In the setting of hypokalemia couple days ago although she only received a little bit of replacement. I now suspect that the original hypokalemia was spurious from ongoing IV fluids or antibiotics proximate to the blood draw - discontinue potassium supple #dysphagia #chronic oropharyngeal aspirator - I suspect this is very much related to items above, [employer]IVER consult, see FEN below - she has previously demonstrated narrowing of the supraglottic airway, will repeat a CT soft tissue to see if this is playing a role - swallow study 11/16 demonstrated aspiration with thin liquids - likely to arrange for ENT and laryngoscopy as well pending initial clinical course #History of thrush - continue fluconazole 20 mg IV once daily as above #HFpEF #diastolic heart failure - continue Bumex, no indication she is decompensated at this time, will monitor closely - telemetry #weakness - PT and OT consultation, given the recent subacute progression suspect she will benefit from a rehab stay #CAD #PAD #subclavian stenosis #carotid stenosis - continue Plavix, isosorbide and aspirin, asymptomatic at this time #hypothyroidism - continue Synthroid #labile hypertension - continue antihypertensives isosorbide and metoprolol - prn labetolol/hydralazine if needed #chronic malnutrition - RD/nutrition consult - she was to have a video swallow done on unsure if that has been completed, consult [employer]IVER #anxiety - continue venlafaxine, buspirone - lorazepam as needed #recent GI bleed #cecal ulceration - stable, monitor daily hemoglobin, monitor for any recurrence #FEN - mild dehydration, NS at 75 cc through the night, assess oral intake, ongoing fluids as needed - she had tolerated an easy chew diet in the past #CODE STATUS - full code per her wishes Admission and Anticipated Discharge Date Admission Date: December 06, 2024 Subjective doing okay this morning. Reports that she still feels quite weak. Does not really have much energy to even participate with therapy although she wants to. Notices an interval increase in the color darkness and consistency of the sputum. She is still able to clear. Her daughter came in and they did exchange the inner trach care yesterday. Otherwise no new complaints or concerns. I discussed with the patient and her daughter the addition of Bactrim to cover the Stenotrophomonas maltophilia that has been present in her sputum the last 2 checks. Discussed the risks of excessive antibiotic therapy versus what may be a pathogenic colonization. Will start Bactrim after this discussion today. Continue to monitor recheck sputum on Wednesday Physical Exam Constitutional: awake and alert, appropriate Eyes: sclera clear ENMT: mucous membranes dry, Neck: trach site clear, #[address] Respiratory: coarse throughout, limited air movement, no expiratory phase wheezing Cardiovascular: distant tones, regular rate and rhythm Gastrointestinal (Abdomen): nontender nondistended Musculoskeletal: no edema Skin: no pallor rash or discoloration Results & Data Results & Data Vital Signs (Past 12 Hours) Vital Signs Temp Pulse Pulse Resp BP Pulse Ox O2 Del Method 12/09/24 11:31 75 18 97 Trach Collar 12/09/24 11:14 104/62 12/09/24 10:51 36.7 C 67 18 95/50 L 97 Trach Collar 12/09/24 09:30 Trach Collar 12/09/24 07:29 86 12/09/24 07:19 36.5 C 72 18 170/65 H 97 Room Air 12/09/24 05:48 86 17 96 Trach Collar 12/09/24 02:43 36.6 C 72 19 145/64 H 92 Trach Collar O2 Flow Rate FiO2 12/09/24 11:31 7 30 12/09/24 11:14 12/09/24 10:51 12/09/24 09:30 3 12/09/24 07:29 12/09/24 07:19 12/09/24 05:48 30 12/09/24 02:43 7 Laboratory Results 12/07/24 13:25 Gram Stain - Final Sputum,Trach Sputum Culture - Final Stenotrophomonas maltophilia 12/09/24 12/08/24 05:24 15:21 WBC 7.26 RBC 3.71 L Hgb 11.2 L Hct 33.9 L MCV 91.4 MCH 30.2 MCHC 33.0 RDW Std Deviation 47.3 H RDW Coeff of Jair 14.1 Plt Count 266 MPV 10.9 Immature Gran % (Auto) 0.3 Neut % (Auto) 61.4 Lymph % (Auto) 20.5 [place] % (Auto) 11.6 Eos % (Auto) 5.6 Baso % (Auto) 0.6 Neut # (Auto) 4.46 Lymph # (Auto) 1.49 [place] # (Auto) 0.84 H Eos # (Auto) 0.41 Baso # (Auto) 0.04 Immature Gran # (Auto) 0.02 Sodium 138 138 Potassium 5.6 H 4.9 D Chloride 104 100 Carbon Dioxide 32 29 Anion Gap 2 L 9 BUN 15 16 Creatinine 0.64 0.66 Est Cr Clr Drug Dosing 51.7 50.1 eGFR 94.42 93.73 BUN/Creatinine Ratio 23.4 H 24.2 H Glucose 90 83 Calcium 9.0 8.8 C-Reactive Protein 0.54 H PG Care Time/CCT Total # of Minutes Spent Total Time Spent with Patient: Total time spent is greater than 50% in coordination of care (as documented) at patient's floor/unit and/or counseling patient: Coding Level of Care Code 81991 SUB INP/OBS CARE 2/35MIN Diagnoses Chronic hypercapnia R06.89 Tracheobronchitis J40 Thrush B37.0 ASCVD (arteriosclerotic cardiovascular disease) I25.10 CHF exacerbation I50.9 Cecal ulcer K63.3 Tracheostomy dependent Z93.0 Labile hypertension R09.89 Anxiety F41.[address] Z93.0
[2024-12-09] MEDS: SULFAMETHOXAZOLE/TRIMETHOPRIM DS 800/160MG TAB PO SCH (20:54)
[2024-12-10] MEDS: KETOROLAC TROMETHAMINE 15 MG/ML VIAL IV ONE (04:39)
[2024-12-10 13:02] LABS: Hematocrit (blood only) 32.6 % (37.0-47.0); Hemoglobin 10.9 g/dl (12.0-16.0); Immature Granulocytes # (auto) 0.01 K/uL (0.01-0.20); Immature Granulocytes % (auto) 0.1 %; Mean Corpuscular Hemoglobin 30.4 pg (25.0-34.0); Mean Corpuscular Volume 91.1 fL (80.0-100.0); Platelet Count 259 K/uL (130-400); RDW Standard Deviation 47.0 fL (36.4-46.3); Red Blood Count 3.58 M/uL (4.20-5.40); White Blood Count 6.67 K/ul (4.8-10.8)
[2024-12-10 13:41] LABS: Anion Gap 3.0 (3-11); Blood Urea Nitrogen 25.0 mg/dl (6-23); Calcium 8.9 mg/dl (8.6-10.3); Carbon Dioxide 35.0 mmol/L (21-32); Chloride 97.0 mmol/L (98-107); Creatinine Clr Calc Pharmacy 38.8 ml/min; Glucose 88.0 mg/dl (70-99(Fasting)); Magnesium 1.7 mg/dl (1.7-2.4); Potassium 4.1 mmol/L (3.5-5.1); Sodium 135.0 mmol/L (136-145)
--- NOTE | 2024-12-10 13:50 | Hospitalist Progress Note ---
Date of Service December 10, 2024 Assessment & Plan (1) Chronic hypercapnia: (2) Tracheobronchitis: (3) Thrush: (4) ASCVD (arteriosclerotic cardiovascular disease): (5) CHF exacerbation: (6) Cecal ulcer: (7) Tracheostomy dependent: (8) Labile hypertension: (9) Anxiety: (10) Tracheostomy in place: Plan #Chronic hypercapnic respiratory failure #Trach dependent #COPD #Rule Out Tracheitis/ tracheal bronc - initial interval improvement but now with increased sputum thickness discoloration. Stenotrophomonas growing in sputum was present on the last culture last hospitalization as well - uncertain whether this is a pathogenic colonization versus routine. Discu ssed with the patient and family their preference is to start Bactrim today and monitor closely. - Repeat sputum culture 24 to 48-hour (Wednesday or Wednesday) - COPD appears to be at baseline at this time - hypertonic saline nebs to assist with clearance, continue acetylcysteine neb - continue fluconazole (Day 06/12) and Bactrim (Day 2 of -?), monitor closely - # hyperkalemia - back to baseline after we stop the Potassium supplement. . I suspect the first hypokalemic reading was spurious secondary to COVID running with antibiotics or fluids. - Repeat electrolyte panel for the morning entered #dysphagia #chronic oropharyngeal aspirator - I suspect this is very much related to items above, SANITATION TECHNICIAN consult, see FEN below - she has previously demonstrated narrowing of the supraglottic airway, will repeat a CT soft tissue to see if this is playing a role - swallow study 11/16 demonstrated aspiration with thin liquids - could consider arranging for ENT and laryngoscopy, her initial presentation consisted of a globus sensation but I think this was mostly related to the esophagitis and phlegm as above. #History of thrush - continue fluconazole 20 mg IV once daily as above #HFpEF #diastolic heart failure - continue Bumex, no indication she is decompensated at this time, will monitor closely - telemetry #weakness - PT and OT consultation, given the recent subacute progression suspect she will benefit from a rehab stay - Will continue to monitor with PT and OT early in the week. If she can meet criteria and participate enough with rehab a rehab stay would likely be very beneficial #CAD #PAD #subclavian stenosis #carotid stenosis - continue Plavix, isosorbide and aspirin, asymptomatic at this time #hypothyroidism - continue Synthroid #labile hypertension - continue antihypertensives isosorbide and metoprolol - prn labetolol/hydralazine if needed #chronic malnutrition - RD/nutrition consult - she was to have a video swallow done on 911 unsure if that has been completed, consult SANITATION TECHNICIAN #anxiety - continue venlafaxine, buspirone - lorazepam as needed #recent GI bleed #cecal ulceration - stable, monitor daily hemoglobin, monitor for any recurrence #FEN - mild dehydration, NS at 75 cc through the night, assess oral intake, ongoing fluids as needed - she had tolerated an easy chew diet in the past #CODE STATUS - full code per her wishes Admission and Anticipated Discharge Date Admission Date: December 06, 2024 Subjective doing about the same this morning. She thinks the sputum has cleared a bit but is still productive. Breathing is closer to its baseline. Weakness has not improved substantially as of yet. No fevers chills or generalized signs of illness. Her bowels are a bit upset with the antibiotic but that is to be expected. We discussed using a probiotic. She still expresses a desire to continue with the antibiotics. Physical Exam Constitutional: awake and alert, appropriate Eyes: sclera clear ENMT: mucous membranes dry, Neck: trach site clear, #[address] Respiratory: coarse throughout, limited air movement, no expiratory phase wheezing Cardiovascular: distant tones, regular rate and rhythm Gastrointestinal (Abdomen): nontender nondistended Musculoskeletal: no edema Skin: no pallor rash or discoloration Results & Data Results & Data Vital Signs (Past 12 Hours) Vital Signs Temp Pulse Pulse Resp BP Pulse Ox O2 Del Method 12/10/24 09:59 Trach Collar 12/10/24 08:00 69 12/10/24 07:48 36.4 C L 83 21 164/66 H 93 Trach Collar 12/10/24 07:34 80 18 99 Trach Collar 12/10/24 04:33 36.4 C L 75 18 157/63 H 94 Trach Collar O2 Flow Rate FiO2 12/10/24 09:59 12/10/24 08:00 12/10/24 07:48 30 12/10/24 07:34 7 30 12/10/24 04:33 30 Laboratory Results 12/07/24 13:25 Gram Stain - Final Sputum,Trach Sputum Culture - Final Stenotrophomonas maltophilia 12/10/24 12:51 WBC 6.67 RBC 3.58 L Hgb 10.9 L Hct 32.6 L MCV 91.1 MCH 30.4 MCHC 33.4 RDW Std Deviation 47.0 H RDW Coeff of Jair 14.0 Plt Count 259 MPV 10.1 Immature Gran % (Auto) 0.1 Neut % (Auto) 87.5 Lymph % (Auto) 4.5 [place] % (Auto) 3.6 Eos % (Auto) 4.2 Baso % (Auto) 0.1 Neut # (Auto) 5.83 Lymph # (Auto) 0.30 L [place] # (Auto) 0.24 Eos # (Auto) 0.28 Baso # (Auto) 0.01 Immature Gran # (Auto) 0.01 Sodium 135 L Potassium 4.1 D Chloride 97 L Carbon Dioxide 35 H Anion Gap 3 BUN 25 H Creatinine 0.81 Est Cr Clr Drug Dosing 38.8 eGFR 77.56 BUN/Creatinine Ratio 30.9 H Glucose 88 Calcium 8.9 Magnesium 1.7 C-Reactive Protein 1.05 H PG Care Time/CCT Total # of Minutes Spent Total Time Spent with Patient: Total time spent is greater than 50% in coordination of care (as documented) at patient's floor/unit and/or counseling patient: Coding Level of Care Code 29291 SUB INP/OBS CARE 235MIN Diagnoses Chronic hypercapnia R06.89 Tracheobronchitis J40 Thrush B37.0 ASCVD (arteriosclerotic cardiovascular disease) I25.10 CHF exacerbation I50.9 Cecal ulcer K63.3 Tracheostomy dependent Z93.0 Labile hypertension R09.89 Anxiety F41.[address] Z93.0
[2024-12-11] MEDS: DICLOFENAC SOD 1% GEL 100 GM TUBE EXT SCH (09:44)
[2024-12-11 10:15] LABS: Hematocrit (blood only) 34.8 % (37.0-47.0); Hemoglobin 11.2 g/dl (12.0-16.0); Immature Granulocytes # (auto) 0.01 K/uL (0.01-0.20); Immature Granulocytes % (auto) 0.1 %; Mean Corpuscular Hemoglobin 29.2 pg (25.0-34.0); Mean Corpuscular Volume 90.6 fL (80.0-100.0); Platelet Count 267 K/uL (130-400); RDW Standard Deviation 47.0 fL (36.4-46.3); Red Blood Count 3.84 M/uL (4.20-5.40); White Blood Count 6.79 K/ul (4.8-10.8)
[2024-12-11 10:48] LABS: Alanine Aminotransferase 13.0 U/L (7-52); Albumin Globulin Ratio 1.0 (0.9-2); Albumin Level 3.5 gm/dl (3.4-5.0); Alkaline Phosphatase 84.0 U/L (34-104); Anion Gap 8.0 (3-11); Bilirubin,Total 0.3 mg/dl (0.2-1.0); Blood Urea Nitrogen 18.0 mg/dl (6-23); Calcium 9.3 mg/dl (8.6-10.3); Carbon Dioxide 33.0 mmol/L (21-32); Chloride 96.0 mmol/L (98-107); Creatinine Clr Calc Pharmacy 37.6 ml/min; Globulin 3.4 gm/dl (2.5-4.0); Glucose 73.0 mg/dl (70-99(Fasting)); Magnesium 1.7 mg/dl (1.7-2.4); Potassium 3.9 mmol/L (3.5-5.1); Sodium 137.0 mmol/L (136-145); Total Protein 6.9 gm/dl (6.0-8.3)
--- NOTE | 2024-12-11 14:59 | Hospitalist Progress Note ---
Date of Service December 11, 2024 Assessment & Plan (1) Chronic hypercapnia: (2) Tracheobronchitis: (3) Thrush: (4) Tracheostomy in place: Plan #Chronic hypercapnic respiratory failure/trach dependent/COPD/rule Out Tracheitis/ tracheal bronc - initial interval improvement but now with increased sputum thickness discoloration. Stenotrophomonas growing in sputum was present on the last culture last hospitalization as well and was treated with Levaquin at that time - uncertain whether this is a pathogenic colonization versus routine. Discussed with the patient and family their preference is to start Bactrim, fluconazole, and monitor closely. - COPD appears to be at baseline at this time - hypertonic saline nebs to assist with clearance, continue acetylcysteine neb # hyperkalemia-now resolved after stopping potassium supplement #dysphagia/chronic oropharyngeal aspirator- I suspect this is very much related to trach issues. CT soft tissue neck with nonspecific soft tissue thickening with mild adjacent inflammatory stranding is noted within the region of the glottis and upper esophageal sphincter of unknown chronicity or clinical significance. Findings could be correlated with direct visualization - swallow study 11/16 demonstrated aspiration with thin liquids - Needs out patient close follow-up with her ENT for laryngoscopy # Chronic HFpEF - continue Bumex, no indication she is decompensated at this time, will monitor closely #weakness - PT and OT consultation, given the recent subacute progression suspect she will benefit from a rehab stay #CAD/PAD/subclavian stenosis/carotid stenosis - continue Plavix, isosorbide and aspirin, asymptomatic at this time #hypothyroidism - continue Synthroid #hypertension - continue antihypertensives isosorbide and metoprolol - prn labetolol/hydralazine if needed #chronic malnutrition - RD/nutrition consult #anxiety -continue venlafaxine, buspirone -lorazepam as needed #recent GI bleed/cecal ulceration - stable, monitor daily hemoglobin, monitor for any recurrence DVT prophylaxis-aspirin, Plavix Disposition-downgrade to medical/surgical unit, awaiting rehab stay Admission and Anticipated Discharge Date Admission Date: December 06, 2024 Subjective Patient reports feeling tired and did get out of bed several times today to ambulate. No other significant concerns Telemetry with normal sinus rhythm with rates in the 60s to 80s Physical Exam Constitutional: + thin Neck: + abnormal visual inspection (Tracheosto my in place) Respiratory: normal respiratory effort and + cough Auscultation: + diminished lung sounds (Throughout); no wheezes Cardiovascular: RRR, no murmur, no edema Gastrointestinal (Abdomen): normal bowel sounds, soft, nontender, no hepatosplenomegaly Psychiatric: A+Ox3, euthymic affect Results & Data Results & Data Vital Signs (Past 12 Hours) Vital Signs Temp Pulse Pulse Resp BP Pulse Ox O2 Del Method 12/11/24 14:22 71 12/11/24 11:45 Trach Collar 12/11/24 09:56 171/68 H 12/11/24 08:00 77 12/11/24 08:00 36.6 C 81 18 100/46 L 97 Trach Collar 12/11/24 07:36 88 20 100 Trach Collar 12/11/24 04:23 36.7 C 77 17 160/69 H 97 Trach Collar O2 Flow Rate FiO2 12/11/24 14:22 12/11/24 11:45 12/11/24 09:56 12/11/24 08:00 12/11/24 08:00 12/11/24 07:36 7 30 12/11/24 04:23 30 Laboratory Results No labs for review PG Care Time/CCT Total # of Minutes Spent Total Time Spent with Patient: Total time spent is greater than 50% in coordination of care (as documented) at patient's floor/unit and/or counseling patient: Coding Level of Care Code 39819 SUB INP/OBS CARE 2/35MIN Diagnoses Chronic hypercapnia R06.89 Tracheobronchitis J40 Thrush B37.[address] Z93.0
--- NOTE | 2024-12-12 09:41 | Electrocardiogram Report ---
Test Reason : Blood Pressure : */* mmHG Vent. Rate : 79 BPM Atrial Rate : 79 BPM P-R Int : 152 ms QRS Dur : 78 ms QT Int : 384 ms P-R-T Axes : 61 31 63 degrees QTcB Int : 440 ms Normal sinus rhythm Normal ECG When compared with ECG of 06-Dec-2024 13:29, ST less elevated in Inferior leads T wave inversion no longer evident in Anterior leads Confirmed by Clinton Epstein [id number] on 12/12/2024 9:41:16 AM Referred By: REFERRED SELF Confirmed By: Clinton Epstein
[2024-12-12] MEDS: FLUCONAZOLE 100 MG TAB PO SCH (16:03)
--- NOTE | 2024-12-12 18:49 | Hospitalist Progress Note ---
Date of Service December 12, 2024 Assessment & Plan (1) Chronic hypercapnia: (2) Tracheobronchitis: (3) Thrush: (4) Tracheostomy in place: Plan #Chronic hypercapnic respiratory failure/trach dependent/COPD/rule Out Tracheitis/ tracheal bronc - initial interval improvement but now with increased sputum thickness discoloration. Stenotrophomonas growing in sputum was present on the last culture last hospitalization as well and was treated with Levaquin at that time - uncertain whether this is a pathogenic colonization versus routine. Discussed with the patient and family their preference is to start Bactrim, fluconazole, and monitor closely. - COPD appears to be at baseline at this time - hypertonic saline nebs to assist with clearance, continue acetylcysteine neb # hyperkalemia-now resolved after stopping potassium supplement #dysphagia/chronic oropharyngeal aspirator- I suspect this is very much related to trach issues. CT soft tissue neck with nonspecific soft tissue thickening with mild adjacent inflammatory stranding is noted within the region of the glottis and upper esophageal sphincter of unknown chronicity or clinical significance. Findings could be correlated with direct visualization - swallow study 11/16 demonstrated aspiration with thin liquids - Needs out patient close follow-up with her ENT for laryngoscopy # Chronic HFpEF - continue Bumex, no indication she is decompensated at this time, will monitor closely #weakness/chronic pain-suspect neuropathy - PT and OT consultation, given the recent subacute progression suspect she will benefit from a rehab stay -start gabapentin 100mg po bid -check B12 level in AM #CAD/PAD/subclavian stenosis/carotid stenosis - continue Plavix, isosorbide and aspirin, asymptomatic at this time #hypothyroidism - continue Synthroid #hypertension - continue antihypertensives isosorbide and metoprolol - prn labetolol/hydralazine if needed #chronic malnutrition - RD/nutrition consult #anxiety -continue venlafaxine, buspirone -lorazepam as needed #recent GI bleed/cecal ulceration - stable, monitor daily hemoglobin, monitor for any recurrence DVT prophylaxis-aspirin, Plavix Disposition-continued stay on medical/surgical unit, awaiting rehab stay Admission and Anticipated Discharge Date Admission Date: December 06, 2024 Subjective Pt c/o chronic burning type pain all over her body. Anytime she even touches herself, it hurts. This has been going on for months Physical Exam Constitutional: + thin Neck: + abnormal visual inspection (Tracheosto my in place) Respiratory: normal respiratory effort and + cough Psychiatric: A+Ox3, euthymic affect Results & Data Results & Data Vital Signs (Past 12 Hours) Vital Signs Temp Pulse Resp BP Pulse Ox O2 Del Method O2 Flow Rate 12/12/24 14:58 36.9 C 70 16 99/44 L 97 Trach Collar 12/12/24 13:49 81 20 97 Trach Collar 12/12/24 08:35 Trach Collar 10 12/12/24 07:44 36.7 C 85 18 168/69 H 97 Trach Collar 12/12/24 07:04 78 16 92 Trach Collar 8 FiO2 12/12/24 14:58 12/12/24 13:49 30 12/12/24 08:35 30 12/12/24 07:44 12/12/24 07:04 30 PG Care Time/CCT Total # of Minutes Spent Total Time Spent with Patient: Total time spent is greater than 50% in coordination of care (as documented) at patient's floor/unit and/or counseling patient: Coding Level of Care Code 34252 SUB INP/OBS CARE 04/01MIN Diagnoses Chronic hypercapnia R06.89 Tracheobronchitis J40 Thrush B37.[address] Z93.0
[2024-12-12] MEDS: GABAPENTIN 100 MG CAP PO SCH (20:25)
[2024-12-12] MEDS: MICONAZOLE NITRATE 2% CR 30 GM TUBE EXT SCH (20:26)
[2024-12-13] MEDS: NYSTATIN CR 15 GM TUBE EXT SCH (01:15)
[2024-12-13 06:00] LABS: Hematocrit (blood only) 30.9 % (37.0-47.0); Hemoglobin 10.0 g/dl (12.0-16.0); Immature Granulocytes # (auto) 0.02 K/uL (0.01-0.20); Immature Granulocytes % (auto) 0.3 %; Mean Corpuscular Hemoglobin 28.8 pg (25.0-34.0); Mean Corpuscular Volume 89.0 fL (80.0-100.0); Platelet Count 209 K/uL (130-400); RDW Standard Deviation 46.2 fL (36.4-46.3); Red Blood Count 3.47 M/uL (4.20-5.40); White Blood Count 5.95 K/ul (4.8-10.8)
[2024-12-13 06:17] LABS: Anion Gap 6.0 (3-11); Blood Urea Nitrogen 18.0 mg/dl (6-23); Calcium 8.5 mg/dl (8.6-10.3); Carbon Dioxide 29.0 mmol/L (21-32); Chloride 99.0 mmol/L (98-107); Creatinine Clr Calc Pharmacy 33.6 ml/min; Glucose 76.0 mg/dl (70-99(Fasting)); Iron 15.0 mcg/dl (35-150); Magnesium 1.8 mg/dl (1.7-2.4); Potassium 3.8 mmol/L (3.5-5.1); Sodium 134.0 mmol/L (136-145); Total Iron Binding Cap Calc 286.0 mcg/dl (250-450); Transferrin 204.0 mg/dl (200-360); Transferrin (FE) Percent Satur 5.0 % (15-50)
[2024-12-13 06:38] LABS: Ferritin 78.9 ng/ml (8-388)
[2024-12-13 06:43] LABS: Folate (Folic Acid),Ser orPlas 13.14 ng/ml (>5.38)
[2024-12-13 06:44] LABS: Vitamin B12 1237.0 pg/ml (180-914)
[2024-12-13 07:47] VITALS: BP 135/61; TEMP 98.2
[2024-12-13 15:32] VITALS: PULSE 75; RESP 18; O2SAT 96
[2024-12-13] MEDS: IRON SUCROSE 300 MG in SODIUM CHLORIDE 0.9% 250 ML IV ONE (16:29)
--- NOTE | 2024-12-13 16:52 | Discharge Summary ---
Discharge Summary Date of Service December 13, 2024 Principal Dx & Hospital Course #1 = Principal Diagnosis (1) Chronic hypercapnia: (2) Tracheobronchitis: (3) Thrush: (4) Tracheostomy in place: Plan #Chronic hypercapnic respiratory failure/trach dependent/COPD/suspected tracheitis-Improving, but pulmonology thinks the stenotrophomonas is likely a colonizer of her tracheostomy tube. Stenotrophomonas growing in sputum was present on the last culture last hospitalization as well and was treated with Levaquin at that time. Discussed with the patient and family their preference is to start Bactrim, fluconazole, and monitor closely. She seems to be overall improved - Finish out 2 more days of Bactrim and fluconazole - COPD appears to be at baseline at this time-continue maintenance inhalers and nebulizers - hypertonic saline nebs to assist with clearance, continue acetylcysteine neb # hyperkalemia-now resolved after stopping potassium supplement #dysphagia/chronic oropharyngeal aspirator- I suspect this is very much related to trach issues. CT soft tissue neck with nonspecific soft tissue thickening with mild adjacent inflammatory stranding is noted within the region of the glottis and upper esophageal sphincter of unknown chronicity or clinical significance. Findings could be correlated with direct visualization - swallow study 11/16 demonstrated aspiration with thin liquids - Needs out patient close follow-up with her ENT for laryngoscopy # Chronic HFpEF - continue Bumex, no indication she is decompensated at this time, will monitor closely #weakness/chronic pain-suspect neuropathy-complains of chronic burning type pain and sensitive to anywhere that she has touched on her body for the last couple of months. Checked a B12 level which was normal. Iron levels are low. PT was recommending rehab but patient feels improved enough and wants to return home yet again on 12/13 -started gabapentin 100mg po bid with some improvement -Replaced iron with Venofer x 1 #Iron deficiency and B12 deficiency anemia-B12 levels are now normal as above, transferrin saturation quite low at 5%. Folate is normal, TSH recently normal. She did have a recent admission for GI bleed. Hemoglobin fairly stable at 12-16 - Gave Venofer 300 mg IV x 1-consider further iron supplementation via IV as an outpatient - Continue home B12 supplement #CAD/PAD/subclavian stenosis/carotid stenosis - continue Plavix, isosorbide and aspirin, asymptomatic at this time #hypothyroidism-recent TSH is normal - continue Synthroid #hypertension-BPs are controlled - continue antihypertensives isosorbide and metoprolol #chronic malnutrition - RD/nutrition consult #anxiety -continue venlafaxine, buspirone -lorazepam as needed #recent GI bleed/cecal ulceration - stable, hemoglobin improving - Gave IV iron - Okay to continue aspirin and Plavix DVT prophylaxis-aspirin, Plavix Disposition-stable for discharge to home with home health Notes For Next Care Provider Follow CBC as an outpatient for anemia Medication Changes From Visit See medication list Admission HPI Per Admitting Provider 69yo female with a history of CAD s/p PCI, HTN, COPD, laryngeal cancer s/p tracheostomy with chronic respiratory failure on 4 L trach collar, hypothyroidism, PAD with right subclavian artery stenosis and EZIO, here with generalized weakness, malaise and difficulty swallowing. known to be a chronic aspirator. Was just discharged from service here on 12/04. Since discharging to home she has not been able to take much fluid down. As she has tried she has noticed an increase in globus sensation in the neck. Has had increased secretions as well as an increase in cough. No fevers chills or generalized signs of illness. States that at rest she does not notice the symptoms but anytime she tries to cough or swallow she feels the fullness in her neck. She came into the outpatient clinic earlier in the day for recheck and was referred to the emergency department for likely admission given her inability to manage at home. Discharge Exam Constitutional + thin Neck + abnormal visual inspection (Tracheostomy in place) Respiratory normal respiratory effort and + cough Auscultation: + diminished lung sounds (Throughout); no wheezes Cardiovascular RRR, no murmur, no edema Gastrointestinal (Abdomen) normal bowel sounds, soft, nontender, no hepatosplenomegaly Psychiatric A+Ox3, euthymic affect Discharge Plan Discharge Items Patient Disposition: Home - Home Health Services Reason For Visit: DYSPHAGIA/WEAKNESS Discharge Diagnosis: Dysphagia Suspected tracheitis Weakness and chronic pain-possible neuropathy Condition on Discharge: Fair Activity: As commented below Lifting: Gradually increase as tolerated Bathing: No limitations Exercise/Sports: Gradually increase as tolerated Exercise Comment: With home PT/OT Non-emergency contact: Primary Care Provider Call non-emergency contact if: you have any medication questions and your symptoms worsen Follow-up/Referrals: Paola Wilson MD [Primary Care Provider] - (Follow-up within 1-2 weeks) Diet: Regular Diet Texture: Easy to Chew Addtl Attending Provider Instructions: You were admitted with difficulty swallowing which did not improve. You were treated with antibiotics and antifungals in case of tracheitis or infection of your windpipe. It is very important that you follow up with your ear nose and throat surgeon as an outpatient. The [facility] nurse navigator from the hospital will help facilitate this appointment. Please finish out the course of antibiotics with Bactrim and fluconazole as prescribed. You were started on gabapentin to help with your chronic pain all over. You were also given IV iron for your iron deficiency anemia which may help improve your symptoms and weakness. Pending Studies at Discharge: No Stand-Alone Forms: My [facility], Smoking Cessation Medications and DC Order Prescriptions: New fluconazole 100 mg Tablet 200 mg PO DAILY@1700 Qty: 2 0RF sulfamethoxazole-trimethoprim [Bactrim DS] 800-160 mg Tablet 1 tab PO Q12 Qty: 4 0RF diclofenac sodium [Voltaren Arthritis Pain] 1 % Gel 4 g EXT BID Qty: 100 0RF Rx Instructions: Please give tube from hospital gabapentin 100 mg Capsule 100 mg PO BID Qty: 60 0RF Continued buspirone 5 mg tablet 5 mg PO BID Saline Mist 0.65 % aerosol,spray 2 spray NA DIRECTED PRN (Reason: Congestion) Aliyahkaylai Aerosphere 160-9-4.8 mcg/actuation HFA aerosol inhaler 2 inh INHALATION [facility] aspirin 81 mg Tablet,Delayed Release (Dr/Ec) 81 mg PO QAM ipratropium-albuterol 0.5 mg-3 mg(2.5 mg base)/3 mL Solution For Nebulization 3 ml NEB Q2H PRN (Reason: shortness of breath or wheezing) Qty: 180 0RF sodium chloride 3 % Solution For Nebulization 3 ml INHALATION Q6H PRN (Reason: thickened secretions) 30 Days Qty: 120 0RF levothyroxine 75 mcg tablet 75 mcg PO DAILYBB clopidogrel 75 mg Tablet 75 mg PO QAM Qty: 30 0RF lidocaine 4 % Adhesive Patch,Medicated 1 patch TOPICAL DAILY Rx Instructions: ON BACK FOR 12 HR. THEN REMOVE cyanocobalamin (vitamin B-12) [Vitamin B-12] 500 mcg Tablet 500 mcg PO DAILY acetaminophen 160 mg/5 mL (5 mL) Solution 650 mg PO Q6H PRN (Reason: pain/fever) Patient Comments: PT HAS HARD TIME SWALLOWING PILLS acetylcysteine 100 mg/mL (10 %) solution 4 ml inhalation [facility] Combivent Respimat 20-100 mcg/actuation mist 2 puff INHALATION Q6H PRN (Reason: Wheezing) Rx Instructions: WITH SPACER atorvastatin 40 mg tablet 40 mg PO HS isosorbide mononitrate 10 mg tablet 10 mg PO BID Qty: 60 0RF lorazepam 0.5 mg Tablet 0.5 mg sublingual Q8H PRN (Reason: Anxiety or insomnia) Qty: 30 0RF venlafaxine 75 mg tablet 75 mg PO TIDM Qty: 90 0RF Rx Instructions: take with food bumetanide 1 mg tablet 1 mg PO QAM metoprolol tartrate 50 mg Tablet 50 mg PO PM Qty: 30 0RF metoprolol tartrate 25 mg Tablet 75 mg PO QAM Qty: 30 0RF Changed baclofen 10 mg Tablet 2.5 mg PO BID PRN (Reason: Muscle spasm) Qty: 15 0RF Patient Comments: PRESCRIBED 10MG PO BID; PT TAKES 10MG DAILY PRN Discharge Orders: Discharge Order (Routine); Ordered 12/13/24 Ordered By: Destiny Bishop Admission Data Admit Date/Time: 12/06/24 15:39 Attending Provider: Destiny Bishop Admit Provider: Alexandre Lainez Primary Care Provider: Paola Wilson Other Providers: [place],[facility]; [facility]; Alexandre Lainez; [facility] Stay Data Consultations 12/06/24 13:35 ED Decision to Admit Stat 12/06/24 16:57 Consult Pulmonology Routine Diagnostic Imagining Performed 12/06/24 14:01 CT neck soft tissues [CT soft tissue neck w con] Stat Pending Results Patient Have Any Pending Studies at Discharge: No Discharge Instructions Given to Patient (Per Discharging Provider) You were admitted with difficulty swallowing which did not improve. You were treated with antibiotics and antifungals in case of tracheitis or infection of your windpipe. It is very important that you follow up with your ear nose and throat surgeon as an outpatient. The [facility] nurse navigator from the hospital will help facilitate this appointment. Please finish out the course of antibiotics with Bactrim and fluconazole as prescribed. You were started on gabapentin to help with your chronic pain all over. You were also given IV iron for your iron deficiency anemia which may help improve your symptoms and weakness. Total Time Total Time Spent Total Time Spent (In Minutes): 35 minutes Total Time Includes: Examination of the Patient, Discharge Planning and Medication Reconciliation Coding Level of Care Code 07268 INP/OBS DISCH >30 MIN Diagnoses Chronic hypercapnia R06.89 Tracheobronchitis J40 Thrush B37.[address] Z93.0
== END 2024-12-13 18:27 | disposition home health service (06) | DRG 202 ==
LOC: ED 12:47 → SUATTDRO 15:39 → 2S 15:39 → 3W 12-11 18:29

== ENCOUNTER 2024-12-16 20:49 | Inpatient (IN) ==
[2024-12-16] MEDS: ALBUT/IPRATROP 3MG/0.5MG NEB 3 ML VIAL NEB STA (21:10)
--- NOTE | 2024-12-16 21:13 | Emergency Department Note ---
Impression & Plan Acute exacerbation of chronic obstructive pulmonary disease, Chronic hypercapnia, Acute thoracic back pain, Difficulty performing activity of daily living (ADL), Acute hyponatremia ED Provider Note NAME: BHAVNA CAT AGE: 69 SEX: F : 1955 ARRIVES VIA: Ambulance INFORMANT: Patient, EMS ED PROVIDER(S): Victoirano Alaniz DO CHIEF COMPLAINT: weakness HPI: This is a 69-year-old female with the PMHx of HTN, PAD, CAD s/p PCI, hypothyroidism, tracheostomy status 2/2 laryngeal cancer, and COPD on chronic 4L trach collar presenting to [facility] for further evaluation of significant weakness. Patient is accompanied by her daughter who provide additional history. She was recently admitted for PNA and discharged on abx. She may have over exerted herself with chores per daughter. She was ambulating throughout the house and dusting the last few days. Patient states that she is actually not here for shortness of breath. She states that this is mostly her baseline. She states really she has been more weak than usual. She is struggling to perform her ADLs even with assistance from her caregivers. Patient states that she has thoracic and lumbar spine pain. Patient denies any numbness or tingling. She denies any bladder or bowel incontinence. She states she is mildly short of breath but not severe. Patient does report some increased tracheal secretions. They deny fever or chills. No cough or congestion. Denies chest pain or palpitations. No shortness of breath. They deny abdominal pain, nausea and vomiting. No urinary complaints. No recent changes in bowel movements. Patient denies recent changes in medications or OTC supplements. Patient offers no other complaints, today. ADDITIONAL HISTORY OBTAINED: Per HPI Chronic Medical/Social Conditions Affecting Care: Per HPI PAST MEDICAL HISTORY: See Below PAST SURGICAL HISTORY: See Below FAMILY HISTORY: See Below SOCIAL HISTORY: See Below HOME MEDICATIONS: See Below ALLERGIES: See Below VITALS: See Below PHYSICAL EXAMINATION: GENERAL: Sitting up in bed, alert, well appearing, well nourished, no distress, non-toxic EYE EXAM: normal conjunctiva. PERRL and EOM's grossly intact. OROPHARYNX: no exudate, no erythema, lips, buccal mucosa, and tongue normal and mucous membranes are moist NECK: supple, no nuchal rigidity, no adenopathy, non-tender, tracheostomy with theodore/dark brown tracheal secretions LUNGS: Mild tachypnea. Rhonchi and slight expiratory wheezing. Normal chest wall mechanics HEART: no murmurs, [regular] rate, [regular] rhythm ABDOMEN: abdomen soft, non-tender, no masses, no rebound or guarding. BACK: Back is symmetrical on inspection and there is no deformity, no midline tenderness, no CVA tenderness. SKIN: no rashes and no bruising UPPER EXTREMITIES: upper extremities are grossly normal. LOWER EXTREMITIES: No pitting edema. NEURO EXAM: Normal sensorium, GCS 15, normal speech, no [gross] weakness of arms, no [gross] weakness of legs. [No drift. Finger to nose intact. Gross sensation intact.] MEDICAL DECISION MAKING: Differential diagnoses includes but not limited to COPD exacerbation, PNA, ACS, dysrhythmia, viral URI, tracheitis, electrolyte derangements, compression fracture, MSK strain, muscle spasm, chronic pain disorder In summary, this is a 69 year old female who presented with generalized weakness. Differential as above. Nursing notes and pertinent past medical records reviewed. Vital signs reviewed and the patient is tachycardic and tachypneic. She is otherwise afebrile and HDS. Her respiratory status appears to be at her baseline. She was weaned from higher levels of oxygen on arrival. History and presentation revealed extensive pulmonary history. Recent admission reviewed by me. It does appear the patient was discharged on abx and antifungals. Suspect she likely overexerted herself at home but given her fragility and significant back pain, she could easily have a compression fracture. Do feel this is could increased in likelihood given malnutrition status as well. Physical examination revealed as above. As a result of my initial evaluation, the patient is extremely uncomfortable but NVI and I do not find evidence of acute cord compression on physical examination. Plan to manage as a COPD exacerbation with investigation into her back pain with CT imaging. Diagnostics interpreted by me include EKG and cardiac monitoring as listed below: -Cardiac Monitoring: An order was placed for continuous cardiac monitoring. The monitor shows a rate of 90-110s with regular rhythm. -ECG: Sinus tachycardia at a rate of [address] segment changes to suggest STEMI. There are depressions throughout the precordial leads. These appear new as compared to prior. Could be somewhat of artifact as well. Intervals are otherwise within normal limits. Patient completed laboratory studies and imaging. Chest x-ray was independently interpreted by me showing significant emphysemic changes but no evidence of focal consolidation or pneumothorax. Results independently interpreted by me are no significant leukocytosis. Mild anemia but stable. ABG shows chronic CO2 retention. She is compensated. The patient was managed with DuoNebs and oxygenation support. Pain managed with opiates, valium and lidocaine patch with some improvement. CTCAP was independently interpreted by me as negative for acute vertebral fracture. There is no findings to suggest PNA. I did recommend tracheal secretions cutlure for further evaluation. She will need evaluation as an inpatient by PT/OT/CM. I do feel this patient would benefit from rehabilitation services. Given her comorbidities and severe lung disease, it may be reasonable to involve palliative care as well. Ultimately, the decision was made to admit the patient for generalized weakness, COPD exacerbation and essentially failure to thrive and perform ADLs. I discussed the case with the hospitalist service via telephone/TigerText and they are agreeable to admit the patient to their services. Based on the above, including the patient's age, coexisting illnesses, labs, imaging, and exam findings the decision to treat as an inpatient. I discussed the patient with the hospitalist team who recommended admission to their services. They received the medications, treatments, interventions indicated above and their condition remained stable. I discussed my findings with the patient and their family and they understand and agree with the treatment plan. All patient / family questions were answered to their satisfaction. Consults/Care Managements Discussions: Per [facility] ER treatment provided: See above Procedures:none Critical Care: None The chart was completed utilizing [email or web address] Speech voice recognition software. Grammatical errors, random word insertions, pronoun errors, and incomplete sentences are an occasional consequence of this system due to software limitations, ambient noise, and hardware issues. Any formal questions or concerns about the content, text, or information contained within the body of this dictation should be directly addressed to the physician for clarification. Past Med/Surg History Problem List (Updated 12/20/24 @ 01:27 by Victoriano Alaniz DO) Acute hyponatremia (Acute) Difficulty performing activity of daily living (ADL) (Acute) Acute thoracic back pain (Acute) Chronic hypercapnia (Acute) Acute exacerbation of chronic obstructive pulmonary disease (Acute) Generalized muscle weakness (Acute) Chronic hypercapnia Tracheobronchitis (Acute) Thrush Diuretic-induced hypokalemia Sinus tachycardia ASCVD (arteriosclerotic cardiovascular disease) Chest pain, rule out acute myocardial infarction Hypertension (Chronic) Hypothyroidism (Chronic) CAD (coronary artery disease) (Chronic) Peripheral arterial disease (Chronic) Subclavian artery stenosis, right (Chronic) Carotid stenosis (Chronic) Hyponatremia (Chronic) Medical History Cecal ulcer GI bleed Tracheostomy dependent Pneumonia Encounter for pre-operative examination Chronic hypoxic respiratory failure, on home oxygen therapy CAD (coronary artery disease) 2008 - LAD stent 2016 - LITTLE to mid LAD CHF (congestive heart failure) Labile hypertension Acute kidney injury superimposed on CKD 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 MONTENEGRO 2016 - ABN STRESS TEST - [facility] - NO STENTS/ANGIOPLASTY History of tonsillectomy and adenoidectomy Family History Daughter Family history of reaction to anesthesia SLOW TO WAKE Father Family hx of colon cancer Other Colon cancer No pertinent family history Social History Smoking Status: Former smoker Tobacco Type: Cigarettes Cigarettes Per Day: 1-2; Second Hand Exposure: No; Do You Dip or Chew Tobacco: No; Hx Alcohol Use: No Hx Substance Use: No Preferred Language: Cape Verdean Communication Ability: Effective Ip Litigation Associate Required: No Beliefs That Will Affect Care: None marital status: Current Living Situation: Alone Current Living Situation Comment: ivettee visits daily current occupational status: retired Feels Safe at Home: Yes Assistive Devices: Oxygen - Continuous and Other Assistive Devices Comment: trach collar Allergies Allergies Allergy/AdvReac Type Severity Reaction Status Date / Time bee venom protein (honey bee) Allergy Severe Anaphylaxis Verified 11/30/24 00:16 latex Allergy Intermediate Rash Verified 11/30/24 00:16 oxycodone [From Percocet] Allergy Intermediate PER Verified 11/30/24 00:16 GMG--GETS LOOPY. Home Meds Home Medications Medication Instructions Recorded Confirmed buspirone 5 mg tablet 5 mg PO BID PRN Anxiety 10/31/19 12/16/24 aspirin 81 mg tablet,delayed 81 mg PO QAM 01/23/21 12/16/24 release sodium chloride 0.65 % nasal spray 2 spray NA DIRECTED PRN 03/24/21 12/16/24 aerosol (Saline Mist) Congestion budesonide 160 mcg-glycopyr 9 2 inh inhalation [facility] 12/17/22 12/16/24 mcg-formot 4.8 mcg/actuation HFA inhaler (Breztri Aerosphere) levothyroxine 75 mcg tablet 75 mcg PO DAILYBB 07/12/24 12/16/24 acetaminophen 160 mg/5 mL (5 mL) 650 mg PO Q6H PRN pain/fever 10/13/24 12/16/24 oral solution cyanocobalamin (vitamin B-12) 500 500 mcg PO DAILY 10/13/24 12/16/24 mcg tablet (Vitamin B-12) lidocaine 4 % topical patch 1 patch topical DAILY Pain 10/13/24 12/16/24 acetylcysteine 100 mg/mL (10 %) 4 ml inhalation AMHS 11/12/24 12/16/24 solution atorvastatin 40 mg tablet 40 mg PO HS 11/12/24 12/16/24 ipratropium 20 mcg-albuterol 100 2 puff inhalation Q6H PRN Wheezing 11/12/24 12/16/24 mcg/actuation mist for inhalation (Combivent Respimat) bumetanide 1 mg tablet 1 mg PO QAM 12/01/24 12/16/24 Previous Rx's Medication Instructions Recorded clopidogrel 75 mg tablet 75 mg PO QAM #30 tabs 07/14/24 ipratropium 0.5 mg-albuterol 3 mg 3 ml NEB Q2H PRN shortness of 10/22/24 (2.5 mg base)/3 mL nebulization breath or wheezing #180 mL soln sodium chloride 3 % for 3 ml inhalation Q6H PRN thickened 08/17/25 nebulization secretions 30 days #120 mL isosorbide mononitrate 10 mg tablet 10 mg PO BID #60 tabs 11/17/24 lorazepam 0.5 mg tablet 0.5 mg sublingual Q8H PRN Anxiety 11/17/24 or insomnia #30 tabs venlafaxine 75 mg tablet 75 mg PO TIDM #90 tabs 11/17/24 metoprolol tartrate 25 mg tablet 75 mg (3 x 25 mg) PO QAM #30 tabs 12/04/24 metoprolol tartrate 50 mg tablet 50 mg PO PM #30 tabs 12/04/24 baclofen 10 mg tablet 2.5 mg (1/4 x 10 mg) PO BID PRN 12/13/24 Muscle spasm #15 tabs diclofenac sodium 1 % topical gel 4 g EXT BID Apply to affected 12/13/24 (Voltaren Arthritis Pain) joint for joint pain #100 grams fluconazole 100 mg tablet 200 mg (2 x 100 mg) PO DAILY@1700 12/13/24 #2 tabs gabapentin 100 mg capsule 100 mg PO BID #60 caps 12/13/24 sulfamethoxazole 800 1 tab PO Q12 #4 tabs 12/13/24 mg-trimethoprim 160 mg tablet (Bactrim DS) Results & Data (ED) Vital Signs Vital Signs - 24 hr 12/16/24 20:56 12/16/24 20:56 12/16/24 20:56 Temperature 37.1 C Temperature Source Oral Pulse Rate 102 H Pulse Rate [Finger] Respiratory Rate 18 Respiratory Effort / Characteristics Blood Pressure 134/89 Blood Pressure Mean 104 Pulse Oximetry 100 100 Oxygen Delivery Method Trach Collar Trach Collar Trach Collar Oxygen Flow Rate 15 15 100 Sepsis Recent Fever Within 48 Hours No Sepsis New/Unexplained Change in Mental Status No Sepsis Action Taken by Nursing No Action Required Oxygen Flow Rate - Titration Fraction of Inspired Oxygen - Titration 12/16/24 21:10 12/16/24 21:13 12/16/24 21:24 Temperature Temperature Source Pulse Rate 110 H Pulse Rate [Finger] 109 H Respiratory Rate 19 Respiratory Effort / Characteristics Non-Labored Spontaneous Blood Pressure Blood Pressure Mean Pulse Oximetry 100 100 Oxygen Delivery Method Trach Collar Trach Collar Oxygen Flow Rate 15 2 Sepsis Recent Fever Within 48 Hours Sepsis New/Unexplained Change in Mental Status Sepsis Action Taken by Nursing Oxygen Flow Rate - Titration 2 Fraction of Inspired Oxygen - Titration 100 Laboratory Data 12/17/24 06:55 12/17/24 06:55 Lab Results 12/16/24 12/16/24 Range/Units 21:10 21:20 WBC 8.44 (4.8-10.8) K/ul RBC 3.49 L (4.20-5.40) M/uL Hgb 10.2 L (12.0-16.0) g/dl Hct 31.8 L (37.0-47.0) % MCV 91.1 (80.0-100.0) fL MCH 29.2 (25.0-34.0) pg MCHC 32.1 (32.0-36.0) g/dL RDW Std Deviation 47.8 H (36.4-46.3) fL RDW Coeff of Jair 14.5 (11.5-14.5) % Plt Count 247 (130-400) K/uL MPV 9.9 (9.4-12.4) fL Immature Gran % (Auto) 0.5 % Neut % (Auto) 68.0 % Lymph % (Auto) 20.3 % [place] % (Auto) 7.3 % Eos % (Auto) 3.1 % Baso % (Auto) 0.8 % Neut # (Auto) 5.74 (1.40-6.50) K/uL Lymph # (Auto) 1.71 (1.20-3.40) K/uL [place] # (Auto) 0.62 H (0.11-0.59) K/uL Eos # (Auto) 0.26 (0.00-0.50) K/uL Baso # (Auto) 0.07 (0.00-0.20) K/uL Immature Gran # (Auto) 0.04 (0.01-0.20) K/uL PT 11.1 (9.0-12.0) Seconds INR 1.1 (0.9-1.1) VBG pH 7.37 (7.36-7.41) VBG pCO2 51 H (38-50) mmHg VBG pO2 27 mmHg VBG HCO3 30 mmol/L VBG O2 Saturation < 60.0 % VBG Base Excess 3.6 mEq/L Sodium 133 L (136-145) mmol/L Potassium 3.8 (3.5-5.1) mmol/L Chloride 94 L (98-107) mmol/L Carbon Dioxide 27 (21-32) mmol/L Anion Gap 12 H (3-11) BUN 18 (6-23) mg/dl Creatinine 1.01 (0.6-1.2) mg/dl Est Cr Clr Drug Dosing 31.9 ml/min eGFR 59.52 BUN/Creatinine Ratio 17.8 (10-20) Glucose 77 (70-99(Fasting)) mg/dl Calcium 9.4 (8.6-10.3) mg/dl Magnesium 1.7 (1.7-2.4) mg/dl Total Bilirubin 0.3 (0.2-1.0) mg/dl AST 24 (13-39) U/L ALT 16 (7-52) U/L Alkaline Phosphatase 87 (34-104) U/L Total Creatine Kinase 52 (26-192) U/L Troponin I High Sens 15.7 H (0-14) pg/ml B-Natriuretic Peptide 674 H (0-100) pg/ml Total Protein 7.0 (6.0-8.3) gm/dl Albumin 3.4 (3.4-5.0) gm/dl Globulin 3.6 (2.5-4.0) gm/dl Albumin/Globulin Ratio 0.9 (0.9-2) Procalcitonin 0.18 (0-0.5) ng/ml Adenovirus (PCR) Not Detected (NotDetected) B. pertussis DNA (PCR) Not Detected (NotDetected) B.parapertussis DNA PCR Not Detected (NotDetected) C. pneumoniae DNA (PCR) Not Detected (NotDetected) Coronavirus OC43 (PCR) Not Detected (NotDetected) Coronavirus HKU1 (PCR) Not Detected (NotDetected) Coronavirus 229E (PCR) Not Detected (NotDetected) SARS-CoV-2 (PCR) Not Detected (NotDetected) Coronavirus NL63 (PCR) Not Detected (NotDetected) Human Metapneumovir PCR Not Detected (NotDetected) Influenza Type A (PCR) Not Detected (NotDetected) Influenza Type B (PCR) Not Detected (NotDetected) M. pneumoniae (PCR) Not Detected (NotDetected) Parainfluenza 1 (PCR) Not Detected (NotDetected) Parainfluenza 2 (PCR) Not Detected (NotDetected) Parainfluenza 3 (PCR) Not Detected (NotDetected) Parainfluenza 4 (PCR) Not Detected (NotDetected) RSV (PCR) Not Detected (NotDetected) Entero/Rhino (PCR) Not Detected (NotDetected) Administered Medications Acetaminophen (Acetaminophen 325 Mg Tab) 650 mg PO Q4H PRN PRN Reason: Pain or Fever Stop: 01/16/25 03:03 Last Admin: 12/19/24 17:18 Dose: 650 mg Documented By: Admin: 12/19/24 10:02 Dose: 650 mg Documented By: Admin: 12/18/24 21:59 Dose: 650 mg Documented By: Admin: 12/18/24 13:37 Dose: 650 mg Documented By: Admin: 12/17/24 17:28 Dose: 650 mg Documented By: [facility] Acetylcysteine (Acetylcysteine 10% Inhal Soln 4 Ml Dispensed By Resp.) 4 ml INH BIDR JUANY Stop: 01/16/25 06:59 Last Admin: 12/19/24 20:31 Dose: 4 ml Documented By: [id number] Admin: 12/19/24 07:33 Dose: 4 ml Documented By: Admin: 12/18/24 19:55 Dose: 4 ml Documented By: Admin: 12/18/24 07:12 Dose: 4 ml Documented By: Admin: 12/17/24 19:49 Dose: 4 ml Documented By: Admin: 12/17/24 07:07 Dose: 4 ml Documented By: [facility] Albuterol (Albut/Ipratrop 3mg/0.5mg Neb 3 Ml Vial) 3 ml NEB Q2H PRN; Protocol PRN Reason: shortness of breath or wheezing Stop: 01/16/25 03:03 Last Admin: 12/19/24 20:32 Dose: 3 ml Documented By: [id number] Admin: 12/19/24 07:33 Dose: 3 ml Documented By: Admin: 12/18/24 19:55 Dose: 3 ml Documented By: Admin: 12/18/24 07:12 Dose: 3 ml Documented By: Admin: 12/18/24 03:08 Dose: 3 ml Documented By: Admin: 12/17/24 19:50 Dose: 3 ml Documented By: Admin: 12/17/24 07:06 Dose: 3 ml Documented By: Admin: 12/17/24 04:02 Dose: 3 ml Documented By: ADAIR Aspirin (Aspirin 81 Mg Ectab) [facility] [place]: 01/16/25 08:59 Last Admin: 12/19/24 08:19 Dose: 81 mg Documented By: Admin: 12/18/24 08:16 Dose: 81 mg Documented By: Admin: 12/17/24 08:25 Dose: 81 mg Documented By: SHANE Atorvastatin Calcium (Atorvastatin 40 Mg Tab) 40 mg PO [facility] Stop: 01/16/25 20:59 Last Admin: 12/19/24 21:21 Dose: 40 mg Documented By: Admin: 12/18/24 20:52 Dose: 40 mg Documented By: Admin: 12/17/24 22:21 Dose: 40 mg Documented By: DELORIS Bumetanide (Bumetanide 1 Mg Tab) [facility] [place]: 01/16/25 08:59 Last Admin: 12/19/24 08:17 Dose: 1 mg Documented By: Admin: 12/18/24 08:17 Dose: 1 mg Documented By: Admin: 12/17/24 08:25 Dose: 1 mg Documented By: SHANE Clopidogrel Bisulfate (Clopidogrel Bisulfate 75 Mg Tab) 75 mg PO [facility] Stop: 01/16/25 08:59 Last Admin: 12/19/24 08:17 Dose: 75 mg Documented By: Admin: 12/18/24 08:15 Dose: 75 mg Documented By: Admin: 12/17/24 08:25 Dose: 75 mg Documented By: SHANE Cyanocobalamin (Cyanocobalamin (B-12) 500 Mcg Tablet) 500 mcg PO DAILY JUANY Stop: 01/16/25 08:59 Last Admin: 12/19/24 08:19 Dose: 500 mcg Documented By: Admin: 12/18/24 08:14 Dose: 500 mcg Documented By: Admin: 12/17/24 08:25 Dose: 500 mcg Documented By: GREGG Diclofenac Sodium (Diclofenac Sod 1% Gel 100 Gm Tube) 4 gm EXT BID JUANY; Protocol Stop: 01/16/25 08:59 Last Admin: 12/19/24 21:17 Dose: Not Given Documented By: Admin: 12/19/24 08:21 Dose: 4 gm Documented By: Admin: 12/18/24 21:11 Dose: Not Given Documented By: Admin: 12/18/24 08:19 Dose: 4 gm Documented By: Admin: 12/17/24 22:40 Dose: Not Given Documented By: Admin: 12/17/24 08:28 Dose: 4 gm Documented By: GREGG Fluticasone Furoate (Fluticasone Furoate 200mcg 14 Puffs/Inhaler) 1 puffs INH DAILY JUANY Stop: 01/16/25 08:59 Last Admin: 12/19/24 08:21 Dose: 1 puffs Documented By: Admin: 12/18/24 08:19 Dose: 1 puffs Documented By: Admin: 12/17/24 08:26 Dose: 1 puffs Documented By: GREGG Isosorbide Mononitrate (Isosorbide Mononitrate 20 Mg Tab) 10 mg PO BID JUANY Stop: 01/16/25 08:59 Last Admin: 12/19/24 21:20 Dose: 10 mg Documented By: Admin: 12/19/24 08:16 Dose: 10 mg Documented By: Admin: 12/18/24 20:52 Dose: 10 mg Documented By: Admin: 12/18/24 08:17 Dose: 10 mg Documented By: Admin: 12/17/24 22:21 Dose: 10 mg Documented By: Admin: 12/17/24 08:26 Dose: 10 mg Documented By: GREGG Levothyroxine Sodium (Levothyroxine Sodium 75 Mcg Tablet) 75 mcg PO DAILYBB [facility] Stop: 01/16/25 06:29 Last Admin: 12/19/24 05:54 Dose: 75 mcg Documented By: Admin: 12/18/24 05:45 Dose: 75 mcg Documented By: Admin: 12/17/24 08:22 Dose: 75 mcg Documented By: Admin: 12/17/24 05:45 Dose: Not Given Documented By: DELORIS Lidocaine (Lidocaine 5% 1 Patch) 1 patch TD QAM [facility] Stop: 01/18/25 08:59 Last Admin: 12/19/24 08:47 Dose: 1 patch Documented By: BELEN Lorazepam (Lorazepam 0.5 Mg Tab) 0.5 mg SL Q8H PRN PRN Reason: Anxiety or insomnia Stop: 01/16/25 03:03 Last Admin: 12/17/24 22:18 Dose: 0.5 mg Documented By: DELORIS Metoprolol Tartrate (Metoprolol Tartrate 50 Mg Tab) 50 mg PO PM JUANY Stop: 01/16/25 20:59 Last Admin: 12/19/24 21:20 Dose: 50 mg Documented By: Admin: 12/18/24 20:52 Dose: 50 mg Documented By: Admin: 12/17/24 22:20 Dose: 50 mg Documented By: DELORIS Metoprolol Tartrate (Metoprolol Tartrate 25 Mg Tab) [facility] [place]: 01/16/25 08:59 Last Admin: 12/19/24 08:17 Dose: 75 mg Documented By: Admin: 12/18/24 08:16 Dose: 75 mg Documented By: Admin: 12/17/24 08:27 Dose: 75 mg Documented By: SHANE Miscellaneous (Remove Lidoderm Patch) 1 each N/A HS [facility] Stop: 01/18/25 20:59 Last Admin: 12/19/24 21:17 Dose: 1 each Documented By: SORIN Morphine Sulfate (Morphine Sulfate 10 Mg/0.5 Ml Udp) 5 mg PO Q6H PRN PRN Reason: moderate-severe Pain Stop: 12/31/24 21:58 Last Admin: 12/17/24 22:21 Dose: 5 mg Documented By: DELORIS Nitrofurantoin Macrocrystals (Nitrofurantoin Monohydrate 100 Mg Cap) 100 mg PO BID [facility] Stop: 12/23/24 20:59 Last Admin: 12/19/24 21:20 Dose: 100 mg Documented By: Admin: 12/19/24 08:15 Dose: 100 mg Documented By: Admin: 12/18/24 20:52 Dose: 100 mg Documented By: SORIN Ondansetron HCl (Ondansetron Inj 2 Mg/Ml 2 Ml Vial) 4 mg IV Q6H PRN PRN Reason: Nausea Stop: 01/16/25 03:03 Last Admin: 12/19/24 10:02 Dose: 4 mg Documented By: BELEN Prednisone (Prednisone 20 Mg Tab) 20 mg PO BID JUANY Stop: 01/17/25 20:59 Last Admin: 12/19/24 21:21 Dose: 20 mg Documented By: Admin: 12/19/24 08:15 Dose: 20 mg Documented By: Admin: 12/18/24 20:53 Dose: 20 mg Documented By: SORIN Sodium Chloride (Sodium Chlor 7% 4 Ml Neb) 4 ml NEB BIDR JUANY Stop: 01/16/25 06:59 Last Admin: 12/19/24 20:31 Dose: 4 ml Documented By: [id number] Admin: 12/19/24 07:33 Dose: 4 ml Documented By: Admin: 12/18/24 19:55 Dose: 4 ml Documented By: Admin: 12/18/24 07:12 Dose: 4 ml Documented By: Admin: 12/17/24 19:50 Dose: 4 ml Documented By: Admin: 12/17/24 07:07 Dose: 4 ml Documented By: [facility] Umeclidinium/Vilanterol (Umeclidinium/Vilanterol 62.5/25mcg 7 Puffs/Inhaler) 1 puffs INH DAILY JUANY Stop: 01/16/25 08:59 Last Admin: 12/19/24 08:20 Dose: 1 puffs Documented By: Admin: 12/18/24 08:19 Dose: 1 puffs Documented By: Admin: 12/17/24 08:28 Dose: 1 puffs Documented By: [facility] Venlafaxine HCl (Venlafaxine Hcl 37.5 Mg Tab) 75 mg PO TID@0800,1600,2200 [facility] Stop: 01/17/25 07:59 Last Admin: 12/19/24 21:21 Dose: 75 mg Documented By: Admin: 12/19/24 15:23 Dose: 75 mg Documented By: Admin: 12/19/24 08:15 Dose: 75 mg Documented By: Admin: 12/18/24 21:16 Dose: 75 mg Documented By: Admin: 12/18/24 16:02 Dose: 75 mg Documented By: Admin: 12/18/24 08:13 Dose: 75 mg Documented By: BELEN Discontinued Medications Albuterol (Albut/Ipratrop 3mg/0.5mg Neb 3 Ml Vial) 3 ml NEB NOW STA; Protocol Stop: 12/16/24 20:57 Last Admin: 12/16/24 21:10 Dose: 3 ml Documented By: KERRY Diazepam (Diazepam Inj 5 Mg/Ml 2 Ml Carp) 2.5 mg IV NOW STA Stop: 12/16/24 23:31 Last Admin: 12/16/24 23:47 Dose: 2.5 mg Documented By: ARPITA Gabapentin (Gabapentin 100 Mg Cap) 100 mg PO BID JUANY Stop: 01/16/25 08:59 Last Admin: 12/17/24 21:54 Dose: Not Given Documented By: Admin: 12/17/24 08:26 Dose: Not Given Documented By: SHANE Acetaminophen (Ofirmev) 1,000 mg in 100 mls @ 400 mls/hr IV NOW STA Stop: 12/17/24 01:27 Last Infusion: 12/17/24 02:15 Dose: Infused Documented By: Admin: 12/17/24 01:55 Dose: 400 mls/hr Documented By: ARPITA Sodium Chloride (Nss) 1,000 mls @ 80 mls/hr IV .[id number] JUANY Stop: 12/17/24 07:44 Last Infusion: 12/17/24 13:40 Dose: Infused Documented By: Admin: 12/17/24 03:18 Dose: 80 mls/hr Documented By: DELORIS Methylprednisolone 40 mg/ (Syringe) 0.64 mls @ 1.5 mls/min IV DAILY JUANY Stop: 01/16/25 08:59 Last Admin: 12/17/24 08:27 Dose: 1.5 mls/min Documented By: SHANE Iron Sucrose 300 mg/ Sodium (Chloride) 265 mls @ 176.667 mls/hr IV TODAY ONE Stop: 12/17/24 09:40 Last Infusion: 12/17/24 12:30 Dose: Infused Documented By: Admin: 12/17/24 10:18 Dose: 176.7 mls/hr Documented By: SHANE Ioversol (Optiray 320 100ml) 93 ml IV ONCE ONE Stop: 12/16/24 22:17 Last Admin: 12/16/24 22:17 Dose: 93 ml Documented By: RASHID Lidocaine (Lidocaine 5% 1 Patch) 1 patch TD NOW STA Stop: 12/16/24 23:31 Last Admin: 12/16/24 23:45 Dose: 1 patch Documented By: ARPITA Lidocaine (Lidocaine 5% 1 Patch) 1 patch TD HS [facility] Stop: 01/16/25 20:59 Last Admin: 12/18/24 20:37 Dose: Not Given Documented By: Admin: 12/17/24 22:18 Dose: 1 patch Documented By: DELORIS Methylprednisolone (Methylprednisolone 125 Mg/2 Ml Vial) 60 mg IV NOW STA Stop: 12/16/24 23:54 Last Admin: 12/17/24 01:09 Dose: 60 mg Documented By: maryann Miscellaneous (Remove Lidoderm Patch) 1 each N/A DAILY@0900 [facility] Stop: 01/16/25 08:59 Last Admin: 12/18/24 09:22 Dose: 1 each Documented By: Admin: 12/17/24 08:28 Dose: 1 each Documented By: GREGG Morphine Sulfate (Morphine Sulfate 4 Mg/Ml 1 Ml Carp\Vial) 4 mg IV NOW STA Stop: 12/16/24 21:19 Last Admin: 12/16/24 21:30 Dose: 4 mg Documented By: madeleine Venlafaxine HCl (Venlafaxine Hcl 37.5 Mg Tab) 75 mg PO TIDM [facility] Stop: 01/16/25 07:59 Last Admin: 12/17/24 17:29 Dose: 75 mg Documented By: Admin: 12/17/24 13:41 Dose: 75 mg Documented By: [facility] Admin: 12/17/24 08:24 Dose: 75 mg Documented By: [facility] Discharge Plan Visit Data Chief Complaint: Respiratory Problems ED Provider: Victoriano Alaniz Discharge Problem: Acute exacerbation of chronic obstructive pulmonary disease, Chronic hypercapnia, Acute thoracic back pain, Difficulty performing activity of daily living (ADL), Acute hyponatremia Patient Disposition: Admitted As Inpatient Condition: Serious Discharge Instructions Interventions: ED Discharge Assessment Last Done: 12/17/24 02:33
[2024-12-16] MEDS: MoRPHine SULFATE 4 MG/ML 1 ML CARP\\VIAL IV STA (21:30)
[2024-12-16 21:35] LABS: Hematocrit (blood only) 31.8 % (37.0-47.0); Hemoglobin 10.2 g/dl (12.0-16.0); Mean Corpuscular Hemoglobin 29.2 pg (25.0-34.0); Mean Corpuscular Volume 91.1 fL (80.0-100.0); Platelet Count 247 K/uL (130-400); RDW Standard Deviation 47.8 fL (36.4-46.3); Red Blood Count 3.49 M/uL (4.20-5.40); White Blood Count 8.44 K/ul (4.8-10.8)
[2024-12-16 21:36] LABS: Base Excess VBG 3.6 mEq/L; HCO3 VBG 30 mmol/L; Oxygen Saturation VBG < 60.0 %; PCO2 VBG 51 mmHg (38-50); PO2 VBG 27 mmHg; pH VBG 7.37 (7.36-7.41)
[2024-12-16 21:53] LABS: Alanine Aminotransferase 16.0 U/L (7-52); Albumin Globulin Ratio 0.9 (0.9-2); Albumin Level 3.4 gm/dl (3.4-5.0); Alkaline Phosphatase 87.0 U/L (34-104); Anion Gap 12.0 (3-11); Bilirubin,Total 0.3 mg/dl (0.2-1.0); Blood Urea Nitrogen 18.0 mg/dl (6-23); Calcium 9.4 mg/dl (8.6-10.3); Carbon Dioxide 27.0 mmol/L (21-32); Chloride 94.0 mmol/L (98-107); Creatinine Clr Calc Pharmacy 31.9 ml/min; Globulin 3.6 gm/dl (2.5-4.0); Glucose 77.0 mg/dl (70-99(Fasting)); Magnesium 1.7 mg/dl (1.7-2.4); Potassium 3.8 mmol/L (3.5-5.1); Sodium 133.0 mmol/L (136-145); Total Protein 7.0 gm/dl (6.0-8.3)
[2024-12-16 21:57] LABS: Immature Granulocytes # (auto) 0.04 K/uL (0.01-0.20); Immature Granulocytes % (auto) 0.5 %
[2024-12-16 22:15] LABS: INR 1.1 (0.9-1.1); Prothrombin Time 11.1 Seconds (9.0-12.0)
[2024-12-16] MEDS: OPTIRAY 320 100ml IV ONE (22:17)
[2024-12-16 22:20] LABS: Chlamydia pneumoniae PCR Not Detected (NotDetected); Coronavirus 229E PCR Not Detected (NotDetected); Coronavirus CoV-2 (COVID19)PCR Not Detected (NotDetected); Coronavirus HKU1 PCR Not Detected (NotDetected); Coronavirus NL63 PCR Not Detected (NotDetected); Coronavirus OC43PCR Not Detected (NotDetected); Human Metapneumovirus PCR Not Detected (NotDetected); Parainfluenza Virus 1 PCR Not Detected (NotDetected); Parainfluenza Virus 2 PCR Not Detected (NotDetected); Parainfluenza Virus 3 PCR Not Detected (NotDetected); Parainfluenza Virus 4 PCR Not Detected (NotDetected); Respiratory Syncytial VirusPCR Not Detected (NotDetected); Rhinovirus/Enterovirus PCR Not Detected (NotDetected)
--- NOTE | 2024-12-16 22:56 | XRay Report ---
Exam(s): XR CXR 1 VIEW EXAM: XR Chest, 1 View CLINICAL HISTORY: Reason for exam: Dyspnea. TECHNIQUE: Frontal view of the chest. COMPARISON: No relevant prior studies available. FINDINGS: Lungs: No consolidation. No overt edema. Pleural space: No pleural effusion. No pneumothorax. Heart: Unremarkable. No cardiomegaly. Bones/joints: Chronic fracture deformity of the right clavicle. Vasculature: Atherosclerotic calcifications in the aorta. Tubes, lines and devices: Tracheostomy cannula in place. IMPRESSION: No acute findings in the chest. Electronically signed by: Ivan Giordano MD 12/16/24 22:55 PM
--- NOTE | 2024-12-16 23:09 | CT Scan Report ---
Exam(s): CT ABDOMEN + PELVIS With Contrast IV Amt: 93ML OPTIRAY 320 EXAM: CT Abdomen and Pelvis With Intravenous Contrast CLINICAL HISTORY: Reason for exam: abd pain, back pain, weakness. TECHNIQUE: Axial computed tomography images of the abdomen and pelvis with intravenous contrast. CTDI is 7.38 mGy and DLP is 330.64 mGy-cm. Automated exposure control was utilized for the study. A dose lowering technique was utilized adhering to the principles of ALARA. CONTRAST: Patient received 93ML OPTIRAY 320 of IV contrast COMPARISON: CT 11/30/2024 FINDINGS: ABDOMEN: Liver: Unremarkable. Gallbladder and bile ducts: Unremarkable. Pancreas: Unremarkable. Spleen: Unremarkable. Adrenals: Unremarkable. Kidneys and ureters: No ureteral stone or hydronephrosis. A few cortical cysts in the kidneys. Stomach and bowel: Unremarkable. PELVIS: Appendix: No findings to suggest acute appendicitis. Bladder: Unremarkable. Reproductive: Unremarkable as visualized. ABDOMEN and PELVIS: Intraperitoneal space: Unremarkable. No free air. No significant fluid collection. Bones/joints: No acute fracture. Soft tissues: Unremarkable. Vasculature: Advanced aortobiiliac atherosclerotic calcifications. Lymph nodes: Unremarkable. IMPRESSION: 1. No acute abnormality in the abdomen or pelvis. Electronically signed by: Ivan Giordano MD 12/16/24 23:08 PM
--- NOTE | 2024-12-16 23:14 | CT Scan Report ---
Exam(s): CT CHEST With Contrast IV Amt: 93ML OPTIRAY 320 EXAM: CT Chest With Intravenous Contrast CLINICAL HISTORY: Reason for exam: Thoracic back pain and SOB. TECHNIQUE: Axial computed tomography images of the chest with intravenous contrast. CTDI is 8.12 mGy and DLP is 250.07 mGy-cm. Automated exposure control was utilized for the study. A dose lowering technique was utilized adhering to the principles of ALARA. CONTRAST: Patient received 93ML OPTIRAY 320 of IV contrast COMPARISON: No relevant prior studies available. FINDINGS: Lungs: Emphysematous changes. Atelectasis in the left lower lobe. Pleural space: No pleural effusion or pneumothorax. Heart: Severe coronary artery calcifications. Bones/joints: No acute findings. Soft tissues: No consolidation or overt edema. Vasculature: Atherosclerotic disease in the aorta and super aortic branch vessels. No aneurysm or dissection. Lymph nodes: Unremarkable. Tubes, lines and devices: Tracheostomy cannula is appropriately positioned. IMPRESSION: No acute findings in the chest. Electronically signed by: Ivan Giordano MD 12/16/24 23:13 PM
[2024-12-16] MEDS: LIDOCAINE 5% 1 PATCH TD STA (23:45)
--- NOTE | 2024-12-17 01:22 | History & Physical Report ---
Date of Service December 17, 2024 Assessment & Plan (1) Chronic hypercapnia: (2) Generalized muscle weakness: Plan Vicki is a 69 y/o female with history of CAD s/p PCI, HTN, COPD, laryngeal cancer s/p tracheostomy with chronic respiratory failure on 4 L trach collar, hypothyroidism, PAD with right subclavian artery stenosis and EZIO, here with generalized weakness. Patient was recently admitted under our service for PNA, discharge on 12/12 with Bactrim and fluconazole. Daughter at bedside,. Daughter states she was doing well after discharge until today that she felt very weak. 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 Recently started on gabapentin for chronic pain, but she states that she hasn't been taking due how it makes her feel. She denied any chills or fevers but states feeling very hot. She states that have full body pain. Denied any sick contacts but had multiple hospitalizations the last couple of months Labs remarkable for hgb of 10.2, no leukocytosis.BNP 675, Troponin 15.7. Creatinine within normal levels. VBG with normal ph, CO2 mildly elevated at 51. Negative procalcitonin. Chest Xray without any acute process, no consolidations, no effusions. Chest CT: No acute findings, emphysematous changes, tracheostomy cannula is appropriately positioned. Abdomen Ct without any acute findings. Will admit patient for further treated due to acute on chronic respiratory failure and weakness Acute on chronic hypercapnic respiratory failure/ COPD - Patient recently finished treatment for PNA with Bactrim and fluconazole - Ct without any signs of acute illness - Oxygen baseline 2-3 L - VBG with mild hypercapnia - Admit to med /telemetry - received Methylprednisone 60 mg IV at the ED, will continue - Duoneb ordered - hypertonic saline nebs as needed - sputum culture ordered - Will hold on Abx on admission - Labs am #Weakness/ chronic pain - neuropathy? - Patient started on gabapentin on prev admission - Patient held the medications because believes it was not helping, didn't like how she felt with it -Patient was recommended rehab on previous admissions but she declined it as she was improving. She was dc with home health - Will continue gabapentin as this helped symptoms in the past, monitor symptoms - Tylenol as needed, continue lidocaine patch - PT/OT - UA pending, creatinine kinase pending # Chronic HFpEF - continue Bumex, patient dry on exam, no signs of decompensated at this time -continue to monitor #Iron deficiency and B12 deficiency anemia - Received IV Venofer 300 mg x1, - Consider iron supplementation while admitted #Dysphagia/ chronic oropharyngeal aspirator: - swallow study 11/16 demonstrated aspiration with thin liquids - Needs out patient close follow-up with her ENT for laryngoscopy #CAD/PAD/subclavian stenosis/carotid stenosis - continue Plavix, isosorbide and aspirin, asymptomatic at this time #hypothyroidism-recent TSH is normal - continue Synthroid #hypertension- - continue antihypertensives isosorbide and metoprolol #anxiety -continue venlafaxine, buspirone -lorazepam as needed #recent GI bleed/cecal ulceration - stable hemoglobin no new symptoms - on aspirin and Plavix - Continue to monitor DVT prophylaxis: aspirin, Plavix Dispo: MEd/ telemetry History of Present Illness Primary Care Provider: Paola Wilson MD Vicki is a 69 y/o female with history of CAD s/p PCI, HTN, COPD, laryngeal cancer s/p tracheostomy with chronic respiratory failure on 4 L trach collar, hypothyroidism, PAD with right subclavian artery stenosis and EZIO, here with generalized weakness. Patient was recently admitted under our service for PNA, discharge on 12/12 with Bactrim and fluconazole. Daughter at bedside,. Daughter states she was doing well after discharge until today that she felt very weak. 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 Recently started on gabapentin for chronic pain, but she states that she hasn't been taking due how it makes her feel. She denied any chills or fevers but states feeling very hot. She states that have full body pain. Denied any sick contacts but had multiple hospitalizations the last couple of months Labs remarkable for hgb of 10.2, no leukocytosis.BNP 675, Troponin 15.7. Creatinine within normal levels. VBG with normal ph, CO2 mildly elevated at 51. Negative procalcitonin. Chest Xray without any acute process, no consolidations, no effusions. Chest CT: No acute findings, emphysematous changes, tracheostomy cannula is appropriately positioned. Abdomen Ct without any acute findings. Will admit patient for further treated due to acute on chronic respiratory failure and weakness Allergies Allergy/AdvReac Type Severity Reaction Status Date / Time bee venom protein (honey bee) Allergy Severe Anaphylaxis Verified 11/30/24 00:16 latex Allergy Intermediate Rash Verified 11/30/24 00:16 oxycodone [From Percocet] Allergy Intermediate PER Verified 11/30/24 00:16 GMG--GETS LOOPY. Home Medications Medication Instructions Recorded Confirmed Type buspirone 5 mg tablet 5 mg PO BID PRN Anxiety 10/31/19 12/16/24 History aspirin 81 mg tablet,delayed 81 mg PO QAM 01/23/21 12/16/24 History release sodium chloride 0.65 % nasal spray 2 spray NA DIRECTED PRN 03/24/21 12/16/24 History aerosol (Saline Mist) Congestion budesonide 160 mcg-glycopyr 9 2 inh inhalation [facility] 12/17/22 12/16/24 History mcg-formot 4.8 mcg/actuation HFA inhaler (Breztri Aerosphere) levothyroxine 75 mcg tablet 75 mcg PO DAILYBB 07/12/24 12/16/24 History clopidogrel 75 mg tablet 75 mg PO QAM #30 tabs 07/14/24 12/16/24 Rx acetaminophen 160 mg/5 mL (5 mL) 650 mg PO Q6H PRN pain/fever 10/13/24 12/16/24 History oral solution cyanocobalamin (vitamin B-12) 500 500 mcg PO DAILY 10/13/24 12/16/24 History mcg tablet (Vitamin B-12) lidocaine 4 % topical patch 1 patch topical DAILY Pain 10/13/24 12/16/24 History ipratropium 0.5 mg-albuterol 3 mg 3 ml NEB Q2H PRN shortness of 10/22/24 12/16/24 Rx (2.5 mg base)/3 mL nebulization breath or wheezing #180 mL soln sodium chloride 3 % for 3 ml inhalation Q6H PRN thickened 10/22/24 12/16/24 Rx nebulization secretions 30 days #120 mL acetylcysteine 100 mg/mL (10 %) 4 ml inhalation [facility] 11/12/24 12/16/24 History solution atorvastatin 40 mg tablet 40 mg PO HS 11/12/24 12/16/24 History ipratropium 20 mcg-albuterol 100 2 puff inhalation Q6H PRN Wheezing 11/12/24 12/16/24 History mcg/actuation mist for inhalation (Combivent Respimat) isosorbide mononitrate 10 mg tablet 10 mg PO BID #60 tabs 11/17/24 12/16/24 Rx lorazepam 0.5 mg tablet 0.5 mg sublingual Q8H PRN Anxiety 11/17/24 12/16/24 Rx or insomnia #30 tabs venlafaxine 75 mg tablet 75 mg PO TIDM #90 tabs 11/17/24 12/16/24 Rx bumetanide 1 mg tablet 1 mg PO QAM 12/01/24 12/16/24 History metoprolol tartrate 25 mg tablet 75 mg (3 x 25 mg) PO QAM #30 tabs 12/04/24 12/16/24 Rx metoprolol tartrate 50 mg tablet 50 mg PO PM #30 tabs 12/04/24 12/16/24 Rx baclofen 10 mg tablet 2.5 mg (1/4 x 10 mg) PO BID PRN 12/13/24 12/16/24 Rx Muscle spasm #15 tabs diclofenac sodium 1 % topical gel 4 g EXT BID Apply to affected 12/13/24 12/16/24 Rx (Voltaren Arthritis Pain) joint for joint pain #100 grams fluconazole 100 mg tablet 200 mg (2 x 100 mg) PO DAILY@1700 12/13/24 12/16/24 Rx #2 tabs gabapentin 100 mg capsule 100 mg PO BID #60 caps 12/13/24 12/16/24 Rx sulfamethoxazole 800 1 tab PO Q12 #4 tabs 12/13/24 12/16/24 Rx mg-trimethoprim 160 mg tablet (Bactrim DS) Past Med/Surg History Problem List (Updated 12/18/24 @ 00:06 by Vic Vela) Generalized muscle weakness (Acute) Chronic hypercapnia Tracheobronchitis (Acute) Thrush Diuretic-induced hypokalemia Sinus tachycardia ASCVD (arteriosclerotic cardiovascular disease) Chest pain, rule out acute myocardial infarction Hypertension (Chronic) Hypothyroidism (Chronic) CAD (coronary artery disease) (Chronic) Peripheral arterial disease (Chronic) Subclavian artery stenosis, right (Chronic) Carotid stenosis (Chronic) Hyponatremia (Chronic) Medical History Cecal ulcer GI bleed Tracheostomy dependent Pneumonia Encounter for pre-operative examination Chronic hypoxic respiratory failure, on home oxygen therapy CAD (coronary artery disease) 2008 - LAD stent 2016 - LITTLE to mid LAD CHF (congestive heart failure) Labile hypertension Acute kidney injury superimposed on CKD Femoral artery occlusion Mucus plugging of bronchi Tracheostomy complication Anxiety History of respiratory failure Tracheostomy in place Herniated disc LOWER BACK Carpal tunnel syndrome Laryngeal cancer S/P TRACH + PEG TUBE PLACEMENT, RADIATION Surgical History 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 MONTENEGRO 2016 - ABN STRESS TEST - [facility] - NO STENTS/ANGIOPLASTY History of tonsillectomy and adenoidectomy Family History Daughter Family history of reaction to anesthesia SLOW TO WAKE Father Family hx of colon cancer Other Colon cancer No pertinent family history Social History Smoking Status: Former smoker Tobacco Type: Cigarettes Cigarettes Per Day: 1-2; Second Hand Exposure: No; Do You Dip or Chew Tobacco: No; Hx Alcohol Use: No Hx Substance Use: No Preferred Language: Amharic Communication Ability: Effective Glost Placer Required: No Beliefs That Will Affect Care: None marital status: Current Living Situation: Alone Current Living Situation Comment: norma visits daily current occupational status: retired Feels Safe at Home: Yes Assistive Devices: Oxygen - Continuous and Other Assistive Devices Comment: trach collar Review of Systems Review of Systems: as per hpi Physical Exam Constitutional: well developed, well nourished and + ill appearing; no acute distress Eyes: PERRL, conjunctivae normal, anicteric sclerae Neck: + tracheostomy present Respiratory: normal respiratory effort, lungs clear to auscultation Cardiovascular: RRR, no murmur, no edema Gastrointestinal (Abdomen): normal bowel sounds, soft, nontender, no hepatosplenomegaly Skin: no rashes, warm and dry Psychiatric: A+Ox3, euthymic affect Results & Data Results & Data Vital Signs (Past 12 Hours) Vital Signs Temp Pulse Pulse Resp BP Pulse Ox O2 Del Method 12/17/24 00:52 110 H 24 117/78 97 Trach Collar 12/16/24 23:06 119 H 28 H 108/85 98 Trach Collar 12/16/24 22:00 114 H 30 H 116/59 L 97 Trach Collar 12/16/24 21:24 109 H 19 100 Trach Collar 12/16/24 21:13 110 H 12/16/24 21:10 100 Trach Collar 12/16/24 20:56 100 Trach Collar 12/16/24 20:56 37.1 C 102 H 18 134/89 100 Trach Collar 12/16/24 20:56 Trach Collar O2 Flow Rate 12/17/24 00:52 2 12/16/24 23:06 2 12/16/24 22:00 2 12/16/24 21:24 2 12/16/24 21:13 12/16/24 21:10 15 12/16/24 20:56 100 12/16/24 20:56 15 12/16/24 20:56 15 Code Status & VTE Plan VTE Prophylaxis Plan VTE Prophylaxis will be ordered: Yes Supervising Physician Co-Signing Physician Notes Attending addendum: I have physically seen this patient, have supervised the medical residents activities, and agree with the H&P unless as otherwise noted. Assessment and Plan: The patient is a 69-year-old female with past medical history including CAD status post PCI, hypertension, COPD, laryngeal cancer status post tracheostomy, chronic respiratory failure on 4 L trach collar, hypothyroidism, PAD, right subclavian artery stenosis, carotid artery stenosis, and generalized weakness. Most recent hospitalizations: 10/09-10/23/2024, 10/31-11/04/2024, 11/12-11/17/2024, 11/30-12/04/2024, and 12/06-12/13/2024. She was discharged on Bactrim and fluconazole for continued treatment of pneumonia after most recent hospitalization. Daughter reports she has been doing well until today, when she started to feel very weak. She was recently started on gabapentin, but did not continue to take it because she did not like the way it made her feel. She reports that she has full body pain. Acute on chronic respiratory failure with hypoxia and hypercapnia/COPD exacerbation- Most recent hospitalization from 12/06-12/13/2024 for pneumonia, which she was discharged to home on Bactrim and fluconazole. CT scan of chest is negative in the ED this evening Baseline oxygen requirement is 2 to 3 L Status post methylprednisolone 60 mg IV in the ED, and will continue every 12 hours Duonebs every 4 hours while awake and every 2 hours when necessary. Hypertonic saline nebs as needed Follow sputum culture and sensitivity Serial laboratories Generalized weakness, chronic pain syndrome- Unable to tolerate gabapentin trial Patient would be best served by going to inpatient rehab, however, she has refused this in the past, and it was discharged with home health. Retrial of gabapentin Acetaminophen 650 mg by mouth every 6 hours as needed for mild pain or fever Continue lidocaine patch Consult PT/OT CAD/PAD/subclavian stenosis/carotid stenosis- Continue Plavix, isosorbide, and aspirin Remaining orders and notations as noted Resident Activity Tracking Resident Involvement: Resident Care Provided Care Provided: Adult Hospital Medicine
[2024-12-17 01:33] LABS: Appearance Urine Clear (Clear); Bacteria Urine Automated None Seen (None Seen); Cast Urine Automated 0-2 /lpf (0-2); Epithelial Cell Urine Auto 0-2 /hpf (0-2); Glucose Urine UA Negative (Negative); RBC Urine Automated 0-2 /hpf (0-2)
[2024-12-17] MEDS: ACETAMINOPHEN 1,000 MG/100 ML VIAL IV STA (01:55)
[2024-12-17 02:31] LABS: Creatine Kinase 52.0 U/L (26-192)
[2024-12-17] MEDS ORDERED: SODIUM CHLORIDE 0.65% NA SOLN 45 ML (OCEAN) PRN (03:04)
[2024-12-17] MEDS ORDERED: ACETAMINOPHEN 160 MG/5 ML PO PRN (03:04)
[2024-12-17] MEDS ORDERED: BACLOFEN 10 MG TAB PO PRN (03:04)
[2024-12-17] MEDS ORDERED: IPRATROPIUM BROMIDE/ALBUTEROL respimat INH INH PRN (03:04)
[2024-12-17] MEDS ORDERED: ALBUT/IPRATROP 3MG/0.5MG NEB 3 ML VIAL NEB PRN (03:04)
[2024-12-17] MEDS: SODIUM CHLORIDE 0.9% 1,000 ML IV SCH (03:18)
[2024-12-17] MEDS ORDERED: IPRATROPIUM BROMIDE HFA INHALER INH PRN (03:38)
[2024-12-17] MEDS ORDERED: ALBUTEROL HFA 8 GM INHALER INH PRN (03:38)
[2024-12-17] MEDS: ALBUT/IPRATROP 3MG/0.5MG NEB 3 ML VIAL NEB PRN (04:02)
[2024-12-17] MEDS: LEVOTHYROXINE SODIUM 75 MCG TABLET PO SCH (05:45)
[2024-12-17] MEDS: ACETYLCYSTEINE 10% INHAL SOLN 4 ML **DISPENSED BY RESP. INH SCH (07:07)
[2024-12-17] MEDS: SODIUM CHLOR 7% 4 ML NEB NEB SCH (07:07)
[2024-12-17 07:52] LABS: Hematocrit (blood only) 31.8 % (37.0-47.0); Hemoglobin 9.9 g/dl (12.0-16.0); Mean Corpuscular Hemoglobin 28.7 pg (25.0-34.0); Mean Corpuscular Volume 92.2 fL (80.0-100.0); Platelet Count 242 K/uL (130-400); RDW Standard Deviation 48.7 fL (36.4-46.3); Red Blood Count 3.45 M/uL (4.20-5.40); White Blood Count 5.65 K/ul (4.8-10.8)
[2024-12-17 08:16] LABS: Alanine Aminotransferase 15.0 U/L (7-52); Albumin Globulin Ratio 1.1 (0.9-2); Albumin Level 3.6 gm/dl (3.4-5.0); Alkaline Phosphatase 87.0 U/L (34-104); Anion Gap 9.0 (3-11); Bilirubin,Total 0.3 mg/dl (0.2-1.0); Blood Urea Nitrogen 15.0 mg/dl (6-23); Calcium 9.1 mg/dl (8.6-10.3); Carbon Dioxide 28.0 mmol/L (21-32); Chloride 98.0 mmol/L (98-107); Creatinine Clr Calc Pharmacy 38.7 ml/min; Globulin 3.4 gm/dl (2.5-4.0); Glucose 109.0 mg/dl (70-99(Fasting)); Magnesium 1.9 mg/dl (1.7-2.4); Potassium 4.1 mmol/L (3.5-5.1); Sodium 135.0 mmol/L (136-145); Total Protein 7.0 gm/dl (6.0-8.3)
[2024-12-17] MEDS: VENLAFAXINE HCL 37.5 MG TAB PO SCH (08:24)
[2024-12-17] MEDS: BUMETANIDE 1 MG TAB PO SCH (08:25)
[2024-12-17] MEDS: ASPIRIN 81 MG ECTAB PO SCH (08:25)
[2024-12-17] MEDS: CYANOCOBALAMIN (B-12) 500 MCG TABLET PO SCH (08:25)
[2024-12-17] MEDS: CLOPIDOGREL BISULFATE 75 MG TAB PO SCH (08:25)
[2024-12-17 08:26] LABS: Immature Granulocytes # (auto) 0.02 K/uL (0.01-0.20); Immature Granulocytes % (auto) 0.4 %; Ovalocytes 1+; Polychromasia 1+
[2024-12-17] MEDS: GABAPENTIN 100 MG CAP PO SCH (08:26)
[2024-12-17] MEDS: ISOSORBIDE MONONITRATE 20 MG TAB PO SCH (08:26)
[2024-12-17] MEDS: FLUTICASONE FUROATE 200MCG 14 PUFFS/INHALER INH SCH (08:26)
[2024-12-17] MEDS: METOPROLOL TARTRATE 25 MG TAB PO SCH (08:27)
[2024-12-17] MEDS: DICLOFENAC SOD 1% GEL 100 GM TUBE EXT SCH (08:28)
[2024-12-17] MEDS: REMOVE LIDODERM PATCH SCH (08:28)
[2024-12-17] MEDS: UMECLIDINIUM/VILANTEROL 62.5/25MCG 7 PUFFS/INHALER INH SCH (08:28)
[2024-12-17] MEDS: IRON SUCROSE 300 MG in SODIUM CHLORIDE 0.9% 250 ML IV ONE (10:18)
--- NOTE | 2024-12-17 15:25 | History & Physical Bridge Note ---
Date of Service December 17, 2024 History & Physical Bridge Note I have examined the patient, reviewed the History & Physical and in the interval since the performance of the History & Physical I have noted the following changes of clinical significance: Pt reports she went home and tried to do dusting around the house and then was very sore all over the next day, got weaker, was dropping things she was grasping with her hands. SHe does not want to wear the tele monitor. When I saw her, she was independently ambulating around her bed, had just moved her bowels. No new complaints otherwise. She does not like the side effects of the gabapentin and wants it stopped. ALso would like her venlafaxine to be given at 1600 for midday dose. No CP. Asks "what can I have for pain." She promises she will go to rehab this time and referral to be made to [facility] Vitals reviewed, tele with [facility], no arrhythmias Frail, AAOx3 trach in place no edema feet purple in color with white toes, cool to touch, faintly palpable pedal pulses labs reviewed Elevated trop-myocardial demand ischemia in setting of hypoxemia-no need to ternd further, no ischemic changes on ECG-continue home isosorbide, metoprolol Chronic pain/Generalized weakness--> approaching end of life I believe, has severe malnutrition, severe COPD, trach dependent. Has been hospitalized 4-5 times in the last 3 months. No current infection. UA abnormal but this is asymptomatic bacteriuria-no need to treat. SHe does not need IV steroids-disc ontinued She just finished a course of bactrim and fluconazole for tracheitis. -will continue lorazepam as needed for anxiety along with buspar and effexor -add on roxanol 5mg po q4h prn mod-severe pain-may also help with any chronic dyspnea from COPD -await PT/OT consults and pt promises she will go to SNF this time-I do believe she should be a permanent resident of a [facility] or NH as she cannot care for herself properly at home and is not always with 24/7 caregivers. -discontinue gabapentin-she doesn't like the way it makes her feel and did not help her chronic pain PAD-had arterial dopplers previously-nothing to intervene upon-I believe her purple discoloration in feet is from intermittent vasospasm-nothing much to do
[2024-12-17] MEDS: ACETAMINOPHEN 325 MG TAB PO PRN (17:28)
--- NOTE | 2024-12-17 19:46 | Electrocardiogram Report ---
Test Reason : Blood Pressure : */* mmHG Vent. Rate : 109 BPM Atrial Rate : 109 BPM P-R Int : 186 ms QRS Dur : 78 ms QT Int : 338 ms P-R-T Axes : -26 -9 -62 degrees QTcB Int : 455 ms Sinus tachycardia Possible Inferior infarct , age undetermined Abnormal ECG When compared with ECG of 09-Dec-2024 20:51, Borderline criteria for Inferior infarct are now Present ST now depressed in Anterior leads Nonspecific T wave abnormality now evident in Inferior leads T wave inversion now evident in Anterolateral leads Confirmed by Lg Varela ([id number]) on 12/17/2024 7:46:41 PM Referred By: REFERRED SELF Confirmed By: Lg Varela
[2024-12-17] MEDS ORDERED: REMOVE LIDODERM PATCH SCH (21:00)
[2024-12-17] MEDS: LORazepam 0.5 MG TAB SL PRN (22:18)
[2024-12-17] MEDS: LIDOCAINE 5% 1 PATCH TD SCH (22:18)
[2024-12-17] MEDS: METOPROLOL TARTRATE 50 MG TAB PO SCH (22:20)
[2024-12-17] MEDS: MoRPHine SULFATE 10 MG/0.5 ML UDP PO PRN (22:21)
[2024-12-17] MEDS: ATORVASTATIN 40 MG TAB PO SCH (22:21)
[2024-12-18] MEDS: VENLAFAXINE HCL 37.5 MG TAB PO SCH (08:13)
--- NOTE | 2024-12-18 15:26 | Hospitalist Progress Note ---
Date of Service December 18, 2024 Assessment & Plan (1) Chronic hypercapnia: (2) Generalized muscle weakness: Plan Vicki is a 69 y/o female with history of CAD s/p PCI, HTN, COPD, laryngeal cancer s/p tracheostomy with chronic respiratory failure on 4 L trach collar, hypothyroidism, PAD with right subclavian artery stenosis and EZIO, here with generalized weakness. Patient was recently admitted under our service for PNA, discharge on 12/12 with Bactrim and fluconazole. Daughter at bedside,. Daughter states she was doing well after discharge until today that she felt very weak. 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 Recently started on gabapentin for chronic pain, but she states that she hasn't been taking due how it makes her feel. She denied any chills or fevers but states feeling very hot. She states that have full body pain. Denied any sick contacts but had multiple hospitalizations the last couple of months Labs remarkable for hgb of 10.2, no leukocytosis.BNP 675, Troponin 15.7. Creatinine within normal levels. VBG with normal ph, CO2 mildly elevated at 51. Negative procalcitonin. Chest Xray without any acute process, no consolidations, no effusions. Chest CT: No acute findings, emphysematous changes, tracheostomy cannula is appropriately positioned. Abdomen Ct without any acute findings. Will admit patient for further treated due to acute on chronic respiratory failure and weakness Acute on chronic hypercapnic respiratory failure/ COPD - Patient recently finished treatment for PNA with Bactrim and fluconazole - Ct without any signs of acute illness - Oxygen baseline 2-3 L - VBG with mild hypercapnia - Admit to med /telemetry - received Methylprednisone 60 mg IV at the ED, will continue - start taper tomorrow - Duoneb ordered - hypertonic saline nebs as needed - sputum culture ordered - Will hold on Abx on admission - Labs Stable, breathing stable and at baseline #Weakness/ chronic pain - neuropathy? #UTI-Cystitis - Patient started on gabapentin on prev admission - Patient held the medications because believes it was not helping, didn't like how she felt with it -Patient was recommended rehab on previous admissions but she declined it as she was improving. She was dc with home health - Will continue gabapentin as this helped symptoms in the past, monitor symptoms - Tylenol as needed, continue lidocaine patch - PT/OT - UC with enterococcus faecium, added macrobid, follow sensitivities # Chronic HFpEF - continue Bumex, patient dry on exam, no signs of decompensated at this time -continue to monitor #Iron deficiency and B12 deficiency anemia - Received IV Venofer 300 mg x1, - Consider iron supplementation while admitted #Dysphagia/ chronic oropharyngeal aspirator: - swallow study 11/16 demonstrated aspiration with thin liquids - Needs out patient close follow-up with her ENT for laryngoscopy #CAD/PAD/subclavian stenosis/carotid stenosis - continue Plavix, isosorbide and aspirin, asymptomatic at this time #hypothyroidism-recent TSH is normal - continue Synthroid #hypertension- - continue antihypertensives isosorbide and metoprolol #anxiety -continue venlafaxine, buspirone -lorazepam as needed #recent GI bleed/cecal ulceration - stable hemoglobin no new symptoms - on aspirin and Plavix - Continue to monitor DVT prophylaxis: aspirin, Plavix Dispo: MEd/ telemetry Admission and Anticipated Discharge Date Admission Date: December 17, 2024 Subjective doing okay this morning. Feels as though the weakness specifically in her hands is quite a bit better. Still has a discoloration in her feet bilaterally but no new or worsening weakness. Otherwise eating and drinking okay maintaining her trach independently. No events or other concerns per patient or nursing Physical Exam Constitutional: well developed, well nourished and + ill appearing; no acute distress Eyes: PERRL, conjunctivae normal, anicteric sclerae Neck: + tracheostomy present Respiratory: normal respiratory effort, lungs clear to auscultation Cardiovascular: RRR, no murmur, no edema Gastrointestinal (Abdomen): normal bowel sounds, soft, nontender, no hepatosplenomegaly Skin: Mildly cyanotic/dusky appearance to the feet, intact cap refill, extremities warm Psychiatric: A+Ox3, euthymic affect Results & Data Results & Data Vital Signs (Past 12 Hours) Vital Signs Temp Pulse Pulse Resp BP Pulse Ox O2 Del Method 12/18/24 11:27 36.4 C L 70 16 107/62 94 Trach Collar 12/18/24 08:36 Trach Collar 12/18/24 07:28 36.8 C 76 18 145/62 H 97 Nasal Cannula 12/18/24 07:12 94 H 18 100 Trach Collar 12/18/24 07:00 55 L O2 Flow Rate FiO2 12/18/24 11:27 2 12/18/24 08:36 12/18/24 07:28 2 12/18/24 07:12 7 28 12/18/24 07:00 Laboratory Results 12/17/24 01:25 Urine Culture - Preliminary Urine,Clean Catch Enterococcus faecium PG Care Time/CCT Total # of Minutes Spent Total Time Spent with Patient: Total time spent is greater than 50% in coordination of care (as documented) at patient's floor/unit and/or counseling patient: Coding Level of Care Code 70594 SUB INP/OBS CARE 2/35MIN Diagnoses Chronic hypercapnia R06.89 Generalized muscle weakness M62.81
[2024-12-18] MEDS: NITROFURANTOIN MONOHYDRATE 100 MG CAP PO SCH (20:52)
[2024-12-18] MEDS: predniSONE 20 MG TAB PO SCH (20:53)
[2024-12-18] MEDS ORDERED: Nursing to Pharmacy Communication SCH (21:15)
--- NOTE | 2024-12-19 05:32 | Billing Data ---
Date of Service December 19, 2024 Coding Level of Care Code 93404 INT INP/OBS CARE
[2024-12-19] MEDS: LIDOCAINE 5% 1 PATCH TD SCH (08:47)
[2024-12-19] MEDS: ONDANSETRON INJ 2 MG/ML 2 ML VIAL IV PRN (10:02)
--- NOTE | 2024-12-19 15:44 | Hospitalist Progress Note ---
Date of Service December 19, 2024 Assessment & Plan (1) Chronic hypercapnia: (2) Generalized muscle weakness: Plan Vicki is a 69 y/o female with history of CAD s/p PCI, HTN, COPD, laryngeal cancer s/p tracheostomy with chronic respiratory failure on 4 L trach collar, hypothyroidism, PAD with right subclavian artery stenosis and EZIO, here with generalized weakness. Patient was recently admitted under our service for PNA, discharge on 12/12 with Bactrim and fluconazole. Daughter at bedside,. Daughter states she was doing well after discharge until today that she felt very weak. 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 Recently started on gabapentin for chronic pain, but she states that she hasn't been taking due how it makes her feel. She denied any chills or fevers but states feeling very hot. She states that have full body pain. Denied any sick contacts but had multiple hospitalizations the last couple of months Labs remarkable for hgb of 10.2, no leukocytosis.BNP 675, Troponin 15.7. Creatinine within normal levels. VBG with normal ph, CO2 mildly elevated at 51. Negative procalcitonin. Chest Xray without any acute process, no consolidations, no effusions. Chest CT: No acute findings, emphysematous changes, tracheostomy cannula is appropriately positioned. Abdomen Ct without any acute findings. Will admit patient for further treated due to acute on chronic respiratory failure and weakness Acute on chronic hypercapnic respiratory failure/ COPD - Patient recently finished treatment for PNA with Bactrim and fluconazole - Ct without any signs of acute illness - Oxygen at approximately 7 L - sputum and breathing have returned to baseline. Her energy level is starting to improve - awaiting authorization for rehab placement #Weakness/ chronic pain - neuropathy? - Patient started on gabapentin on prev admission - Patient held the medications because believes it was not helping, didn't like how she felt with it -Patient was recommended rehab on previous admissions but she declined it as she was improving. She was dc with home health - Will continue gabapentin as this helped symptoms in the past, monitor symptoms - Tylenol as needed, continue lidocaine patch - PT/OT, see assessments, returning back to her baseline # Chronic HFpEF - continue Bumex, patient dry on exam, no signs of decompensated at this time -continue to monitor #Iron deficiency and B12 deficiency anemia - Received IV Venofer 300 mg x1, - continue iron supplement on discharge #Dysphagia/ chronic oropharyngeal aspirator: - swallow study 11/16 demonstrated aspiration with thin liquids - Needs out patient close follow-up with her ENT for laryngoscopy #CAD/PAD/subclavian stenosis/carotid stenosis - continue Plavix, isosorbide and aspirin, asymptomatic at this time #hypothyroidism-recent TSH is normal - continue Synthroid #hypertension- - continue antihypertensives isosorbide and metoprolol #anxiety -continue venlafaxine, buspirone -lorazepam as needed #recent GI bleed/cecal ulceration - stable hemoglobin no new symptoms - on aspirin and Plavix - Continue to monitor DVT prophylaxis: aspirin, Plavix Dispo: MEd/ telemetry Admission and Anticipated Discharge Date Admission Date: December 17, 2024 Subjective doing well this morning. Feeling better breathing is much closer to his recent baseline. Her strength and overall feeling of health is back to its baseline. We lengthy discussion today about rehab placement and the length of time for recovery given her recent complex and extended hospitalizations. She is very understanding at this time is willing to invest time and effort into the rehab to hopefully avoid coming back into the hospital so frequently. Otherwise no new complaints events or concerns per nursing or patient Physical Exam Constitutional: well developed, well nourished and + ill appearing; no acute distress Eyes: PERRL, conjunctivae normal, anicteric sclerae Neck: + tracheostomy present Respiratory: normal respiratory effort, lungs clear to auscultation Cardiovascular: RRR, no murmur, no edema Gastrointestinal (Abdomen): normal bowel sounds, soft, nontender, no hepatosplenomegaly Skin: Mildly cyanotic/dusky appearance to the feet, intact cap refill, extremities warm Psychiatric: A+Ox3, euthymic affect Results & Data Results & Data Vital Signs (Past 12 Hours) Vital Signs Temp Pulse Pulse Resp BP Pulse Ox O2 Del Method 12/19/24 09:11 Trach Collar 12/19/24 07:47 36.5 C 83 18 166/79 H 95 Trach Collar 12/19/24 07:34 80 16 98 Trach Collar 12/19/24 07:00 73 O2 Flow Rate FiO2 12/19/24 09:11 12/19/24 07:47 7 12/19/24 07:34 8 28 12/19/24 07:00 Laboratory Results 12/17/24 01:25 Urine Culture - Final Urine,Clean Catch Enterococcus faecium VRE PG Care Time/CCT Total # of Minutes Spent Total Time Spent with Patient: Total time spent is greater than 50% in coordination of care (as documented) at patient's floor/unit and/or counseling patient: Coding Level of Care Code 17981 SUB INP/OBS CARE 2/35MIN Diagnoses Chronic hypercapnia R06.89 Generalized muscle weakness M62.81
[2024-12-19] MEDS: REMOVE LIDODERM PATCH SCH (21:17)
[2024-12-20 06:33] LABS: Hematocrit (blood only) 32.9 % (37.0-47.0); Hemoglobin 10.6 g/dl (12.0-16.0); Immature Granulocytes # (auto) 0.03 K/uL (0.01-0.20); Immature Granulocytes % (auto) 0.3 %; Mean Corpuscular Hemoglobin 28.8 pg (25.0-34.0); Mean Corpuscular Volume 89.4 fL (80.0-100.0); Platelet Count 292 K/uL (130-400); RDW Standard Deviation 46.2 fL (36.4-46.3); Red Blood Count 3.68 M/uL (4.20-5.40); White Blood Count 8.84 K/ul (4.8-10.8)
[2024-12-20 07:06] LABS: Alanine Aminotransferase 16 U/L (7-52); Albumin Globulin Ratio 0.9 (0.9-2); Albumin Level 3.2 gm/dl (3.4-5.0); Alkaline Phosphatase 78 U/L (34-104); Anion Gap 7 (3-11); Bilirubin,Total 0.3 mg/dl (0.2-1.0); Blood Urea Nitrogen 23 mg/dl (6-23); Calcium 8.9 mg/dl (8.6-10.3); Carbon Dioxide 34 mmol/L (21-32); Chloride 95 mmol/L (98-107); Creatinine Clr Calc Pharmacy 62.9 ml/min; Globulin 3.7 gm/dl (2.5-4.0); Glucose 136 mg/dl (70-99(Fasting)); Magnesium 2.0 mg/dl (1.7-2.4); Potassium 3.6 mmol/L (3.5-5.1); Sodium 136 mmol/L (136-145); Total Protein 6.9 gm/dl (6.0-8.3)
--- NOTE | 2024-12-20 11:28 | Hospitalist Progress Note ---
Date of Service December 20, 2024 Assessment & Plan (1) Chronic hypercapnia: (2) Generalized muscle weakness: Plan Vicki is a 69 y/o female with history of CAD s/p PCI, HTN, COPD, laryngeal cancer s/p tracheostomy with chronic respiratory failure on 4 L trach collar, hypothyroidism, PAD with right subclavian artery stenosis and EZIO, here with generalized weakness. Patient was recently admitted under our service for PNA, discharge on 12/12 with Bactrim and fluconazole. Daughter at bedside,. Daughter states she was doing well after discharge until today that she felt very weak. 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 Recently started on gabapentin for chronic pain, but she states that she hasn't been taking due how it makes her feel. She denied any chills or fevers but states feeling very hot. She states that have full body pain. Denied any sick contacts but had multiple hospitalizations the last couple of months Labs remarkable for hgb of 10.2, no leukocytosis.BNP 675, Troponin 15.7. Creatinine within normal levels. VBG with normal ph, CO2 mildly elevated at 51. Negative procalcitonin. Chest Xray without any acute process, no consolidations, no effusions. Chest CT: No acute findings, emphysematous changes, tracheostomy cannula is appropriately positioned. Abdomen Ct without any acute findings. Will admit patient for further treated due to acute on chronic respiratory failure and weakness Acute on chronic hypercapnic respiratory failure/ COPD - Patient recently finished treatment for PNA with Bactrim and fluconazole - Ct without any signs of acute illness - Oxygen at approximately 7 L - sputum and breathing have returned to baseline. Her energy level is starting to improve - awaiting authorization for rehab placement - at baseline from a respiratory standpoint # polymicrobial infections # urinary VRE - VRE is new, asymptomatic, likely colonization - likely colonization, no outward urinary symptoms or generalized symptoms at this time - we will continue to monitor. Continue with contact precautions #Weakness/ chronic pain - neuropathy? - Patient started on gabapentin on prev admission - Patient held the medications because believes it was not helping, didn't like how she felt with it -Patient was recommended rehab on previous admissions but she declined it as she was improving. She was dc with home health - Will continue gabapentin as this helped symptoms in the past, monitor symptoms - Tylenol as needed, continue lidocaine patch - PT/OT, see assessments, returning back to her baseline - today a little on the lower side but no clear decompensation # Chronic HFpEF - continue Bumex, patient dry on exam, no signs of decompensated at this time -continue to monitor #Iron deficiency and B12 deficiency anemia - Received IV Venofer 300 mg x1, - continue iron supplement on discharge #Dysphagia/ chronic oropharyngeal aspirator: - swallow study 11/16 demonstrated aspiration with thin liquids - Needs out patient close follow-up with her ENT for laryngoscopy #CAD/PAD/subclavian stenosis/carotid stenosis - continue Plavix, isosorbide and aspirin, asymptomatic at this time #hypothyroidism-recent TSH is normal - continue Synthroid #hypertension- - continue antihypertensives isosorbide and metoprolol #anxiety -continue venlafaxine, buspirone -lorazepam as needed #recent GI bleed/cecal ulceration - stable hemoglobin no new symptoms - on aspirin and Plavix - Continue to monitor DVT prophylaxis: aspirin, Plavix Dispo: MEd/ telemetry Admission and Anticipated Discharge Date Admission Date: December 17, 2024 Subjective Doing okay this morning. Feeling a little bit more weak than usual. Denies any urinary symptoms. We talked about rehab and placement. We also discussed the fact that she has now VRE growing in her urine. She has no urinary symptoms as above. Just generalized weakness. Curbside with infectious disease to continue to monitor. Otherwise no new events, complaints or concerns Physical Exam Constitutional: well developed, well nourished and + ill appearing; no acute distress Eyes: PERRL, conjunctivae normal, anicteric sclerae Neck: + tracheostomy present Respiratory: normal respiratory effort, lungs clear to auscultation Cardiovascular: RRR, no murmur, no edema Gastrointestinal (Abdomen): normal bowel sounds, soft, nontender, no hepatosplenomegaly Skin: Mildly cyanotic/dusky appearance to the feet, intact cap refill, extremities warm Psychiatric: A+Ox3, euthymic affect Results & Data Results & Data Vital Signs (Past 12 Hours) Vital Signs Temp Pulse Resp BP Pulse Ox O2 Del Method O2 Flow Rate 12/20/24 11:23 36.7 C 72 20 140/54 L 97 Room Air 12/20/24 08:11 79 18 97 Trach Collar 7 12/20/24 08:00 Trach Collar 12/20/24 07:55 106 H 153/69 H FiO2 12/20/24 11:23 12/20/24 08:11 28 12/20/24 08:00 12/20/24 07:55 Laboratory Results 12/17/24 01:25 Urine Culture - Final Urine,Clean Catch Enterococcus faecium VRE 12/20/24 05:46 WBC 8.84 RBC 3.68 L Hgb 10.6 L Hct 32.9 L MCV 89.4 MCH 28.8 MCHC 32.2 RDW Std Deviation 46.2 RDW Coeff of Jair 14.2 Plt Count 292 MPV 9.9 Immature Gran % (Auto) 0.3 Neut % (Auto) 80.0 Lymph % (Auto) 14.3 Kern % (Auto) 5.2 Eos % (Auto) 0.0 Baso % (Auto) 0.2 Neut # (Auto) 7.07 H Lymph # (Auto) 1.26 Kern # (Auto) 0.46 Eos # (Auto) 0.00 Baso # (Auto) 0.02 Immature Gran # (Auto) 0.03 Sodium 136 Potassium 3.6 Chloride 95 L Carbon Dioxide 34 H Anion Gap 7 BUN 23 Creatinine 0.50 L Est Cr Clr Drug Dosing 62.9 eGFR 100.21 BUN/Creatinine Ratio 46.0 H Glucose 136 H Calcium 8.9 Magnesium 2.0 Total Bilirubin 0.3 AST 26 ALT 16 Alkaline Phosphatase 78 C-Reactive Protein < 0.50 Total Protein 6.9 Albumin 3.2 L Globulin 3.7 Albumin/Globulin Ratio 0.9 PG Care Time/CCT Total # of Minutes Spent Total Time Spent with Patient: Total time spent is greater than 50% in coordination of care (as documented) at patient's floor/unit and/or counseling patient: Coding Level of Care Code 62944 SUB INP/OBS CARE 2/35MIN Diagnoses Chronic hypercapnia R06.89 Generalized muscle weakness M62.81
[2024-12-20] MEDS: ALUMINUM/MAGNESIUM SUSP 30 ML UDC PO PRN (13:50)
--- NOTE | 2024-12-20 15:22 | Infectious Disease Consult ---
Date of Consultation December 20, 2024 Assessment & Plan (1) Difficulty performing activity of daily living (ADL): (2) Generalized muscle weakness: Plan This is 69-year-old female with a past medical history of CAD, laryngeal cancer status post tracheostomy with chronic respiratory failure on 4 L trach collar, hypothyroidism, PAD status post right subclavian artery stenosis who presents with generalized weakness. She was recently admitted to [facility] from 12/06/2024 - 12/13/2024 for suspected Tracheitis with possible pneumonia. Respiratory cultures grew stenotrophomonas which was thought to be a colonizer of her trach tube. She also had dysphagia. A swallow study demonstrated aspiration with thin liquids. She completed 14 days of Bactrim and Flagyl per her primary team. She presents to the ED on 12/16/24 with weakness. Her daughter felt that she may have overexerted herself doing chores. Patient was ambulating at home and dusting and then patient noted to be weak and struggling to perform her ADLs. Patient denied any fevers, chills. She has baseline tracheal secretions which may have increased. Denied any nausea, vomiting, shortness of breath, change in urinary habits, abdominal pain, back pain.She reports coughing and at times has unexpected soft bowel movements from the pressure. On admission she is afebrile and hemodynamically stable. Labs: WBC 8.44, sodium 133, BUN 18, creatinine 1.01. Urinalysis 1+ leukocyte esterase, 1120 WBC. Respiratory viral panel negative. Chest x-ray with no acute findings. CTAP with no acute abdominal or pelvis findings. Chest CT with no acute findings. Urine culture grew VRE. Infectious disease consulted for VRE in urine. On my evaluation patient denies any urinary symptoms. She remains hemodynamically stable. Microbiology Urine culture > 100 K VRE (sensitive to daptomycin, linezolid, nitrofurantoin) Antibioticsnone # Asymptomatic bacteriuria with VRE # Chronic respiratory failure, sp trach # Laryngeal cancer Discussion: Patient does not have any signs or symptoms of a UTI. She denies dysuria, change in urinary frequency, abdominal pain. She is afebrile. She does not have any CVA/flank or suprapubic tenderness. She reports coughing and at times has unexpected soft bowel movements from the pressure. Bowel major may have contaminated her urine--> VRE. No antibiotic treatment is recommended for asymptomatic pyuria/bacteriuria unless neutropenic, pending urologic procedure or associated VRE bacteremia. Unnecessary antibiotic exposures put her at risk for development of further MDROs and C. difficile. Patient is comfortable, and hemodynamically stable on e xam. Recommendations: No antibiotics recommended for asymptomatic bacteriuria, unless criteria per above Recommendations communicated to hospitalist Thank you for this consult. ID will sign off Oksana Harden MD, MPH Infectious Disease [facility] Call [phone] with questions Consultation Information Consultation was provided via telemedicine using two-way real-time interactive telecommunication between the patient and the telemedicine provider. For the duration of the visit, the provider was performing the assessment from a different facility than the patient. This includesuse of bluetooth stethoscope forauscultationperformed by the telepresenter that the telemedicine provider can hear if described in the physical exam. Charge Operator contact information: Please call [facility] [phone]. (Phone Number For Physician Use Only) After establishing a telemedicine visit, patient was: Patient was verified with two unique identifiers and Gave permission to continue telehealth session Time Spent with Patient: Initial => 75 min History of Present Illness Reason for Consultation: VRE in urine Requesting Physician: Alexandre Lainez MD Attending Physician: Alexandre Lainez MD History of Present Illness This is 69-year-old female with a past medical history of CAD, laryngeal cancer status post tracheostomy with chronic respiratory failure on 4 L trach collar, hypothyroidism, PAD status post right subclavian artery stenosis who presents with generalized weakness. She was recently admitted to [facility] from 12/06/2024 - 12/13/2024 for suspected Tracheitis with possible pneumonia. Respiratory cultures grew stenotrophomonas which was thought to be a colonizer of her trach tube. She also had dysphagia. A swallow study demonstrated aspiration with thin liquids. She completed 14 days of Bactrim and Flagyl per her primary team. She presents to the ED on 12/16/24 with weakness. Her daughter felt that she may have overexerted herself doing chores. Patient was ambulating at home and dusting and then patient noted to be weak and struggling to perform her ADLs. Patient denied any fevers, chills. She has baseline tracheal secretions which may have increased. Denied any nausea, vomiting, shortness of breath, change in urinary habits, abdominal pain, back pain.She reports coughing and at times has unexpected soft bowel movements from the pressure. On admission she is afebrile and hemodynamically stable. Labs: WBC 8.44, sodium 133, BUN 18, creatinine 1.01. Urinalysis 1+ leukocyte esterase, 1120 WBC. Respiratory viral panel negative. Chest x-ray with no acute findings. CTAP with no acute abdominal or pelvis findings. Chest CT with no acute findings. Urine culture grew VRE. Infectious disease consulted for VRE in urine. On my evaluation patient denies any urinary symptoms. She remains hemodynamically stable. Allergies Allergy/AdvReac Type Severity Reaction Status Date / Time bee venom protein (honey bee) Allergy Severe Anaphylaxis Verified 11/30/24 00:16 latex Allergy Intermediate Rash Verified 11/30/24 00:16 oxycodone [From Percocet] Allergy Intermediate PER Verified 11/30/24 00:16 GMG--GETS LOOPY. Home Medications Medication Instructions Recorded Confirmed Type buspirone 5 mg tablet 5 mg PO BID PRN Anxiety 10/31/19 12/16/24 History aspirin 81 mg tablet,delayed 81 mg PO QAM 01/23/21 12/16/24 History release sodium chloride 0.65 % nasal spray 2 spray NA DIRECTED PRN 03/24/21 12/16/24 History aerosol (Saline Mist) Congestion budesonide 160 mcg-glycopyr 9 2 inh inhalation AMHS 12/17/22 12/16/24 History mcg-formot 4.8 mcg/actuation HFA inhaler (Breztri Aerosphere) levothyroxine 75 mcg tablet 75 mcg PO DAILYBB 07/12/24 12/16/24 History clopidogrel 75 mg tablet 75 mg PO QAM #30 tabs 07/14/24 12/16/24 Rx acetaminophen 160 mg/5 mL (5 mL) 650 mg PO Q6H PRN pain/fever 10/13/24 12/16/24 History oral solution cyanocobalamin (vitamin B-12) 500 500 mcg PO DAILY 10/13/24 12/16/24 History mcg tablet (Vitamin B-12) lidocaine 4 % topical patch 1 patch topical DAILY Pain 10/13/24 12/16/24 History ipratropium 0.5 mg-albuterol 3 mg 3 ml NEB Q2H PRN shortness of 10/22/24 12/16/24 Rx (2.5 mg base)/3 mL nebulization breath or wheezing #180 mL soln sodium chloride 3 % for 3 ml inhalation Q6H PRN thickened 10/22/24 12/16/24 Rx nebulization secretions 30 days #120 mL acetylcysteine 100 mg/mL (10 %) 4 ml inhalation AMHS 11/12/24 12/16/24 History solution atorvastatin 40 mg tablet 40 mg PO HS 11/12/24 12/16/24 History ipratropium 20 mcg-albuterol 100 2 puff inhalation Q6H PRN Wheezing 11/12/24 12/16/24 History mcg/actuation mist for inhalation (Combivent Respimat) isosorbide mononitrate 10 mg tablet 10 mg PO BID #60 tabs 11/17/24 12/16/24 Rx lorazepam 0.5 mg tablet 0.5 mg sublingual Q8H PRN Anxiety 11/17/24 12/16/24 Rx or insomnia #30 tabs venlafaxine 75 mg tablet 75 mg PO TIDM #90 tabs 11/17/24 12/16/24 Rx bumetanide 1 mg tablet 1 mg PO QAM 12/01/24 12/16/24 History metoprolol tartrate 25 mg tablet 75 mg (3 x 25 mg) PO QAM #30 tabs 12/04/24 12/16/24 Rx metoprolol tartrate 50 mg tablet 50 mg PO PM #30 tabs 12/04/24 12/16/24 Rx baclofen 10 mg tablet 2.5 mg (1/4 x 10 mg) PO BID PRN 12/13/24 12/16/24 Rx Muscle spasm #15 tabs diclofenac sodium 1 % topical gel 4 g EXT BID Apply to affected 12/13/24 12/16/24 Rx (Voltaren Arthritis Pain) joint for joint pain #100 grams fluconazole 100 mg tablet 200 mg (2 x 100 mg) PO DAILY@1700 12/13/24 12/16/24 Rx #2 tabs gabapentin 100 mg capsule 100 mg PO BID #60 caps 12/13/24 12/16/24 Rx sulfamethoxazole 800 1 tab PO Q12 #4 tabs 12/13/24 12/16/24 Rx mg-trimethoprim 160 mg tablet (Bactrim DS) Patient History Medical History Cecal ulcer GI bleed Tracheostomy dependent Pneumonia Encounter for pre-operative examination Chronic hypoxic respiratory failure, on home oxygen therapy CAD (coronary artery disease) 2008 - LAD stent 2016 - LITTLE to mid LAD CHF (congestive heart failure) Labile hypertension Acute kidney injury superimposed on CKD 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 Pertinent positives as per HPI. Physical Exam Physical Exam: GeneralNAD, comfortable Neck -trach tracheostomy with trach collar in place, increased secretions Lungs: Nonlabored breathing. Status post trach on 7 L supplemental oxygen Abdomensoft, nontender, nondistended GUno CVA/flank tenderness, no suprapubic tenderness Extremities no edema NeuroAAO x 3 Psychcooperative, normal mood Results & Data Vital Signs (Past 12 Hours) Vital Signs Temp Pulse Resp BP Pulse Ox O2 Del Method O2 Flow Rate 12/20/24 11:23 36.7 C 72 20 140/54 L 97 Room Air 12/20/24 08:11 79 18 97 Trach Collar 7 12/20/24 08:00 Trach Collar 12/20/24 07:55 106 H 153/69 H FiO2 12/20/24 11:23 12/20/24 08:11 28 12/20/24 08:00 12/20/24 07:55 Laboratory Results 12/20/24 05:46 WBC 8.84 RBC 3.68 L Hgb 10.6 L Hct 32.9 L MCV 89.4 MCH 28.8 MCHC 32.2 RDW Std Deviation 46.2 RDW Coeff of Jair 14.2 Plt Count 292 MPV 9.9 Immature Gran % (Auto) 0.3 Neut % (Auto) 80.0 Lymph % (Auto) 14.3 [place] % (Auto) 5.2 Eos % (Auto) 0.0 Baso % (Auto) 0.2 Neut # (Auto) 7.07 H Lymph # (Auto) 1.26 [place] # (Auto) 0.46 Eos # (Auto) 0.00 Baso # (Auto) 0.02 Immature Gran # (Auto) 0.03 Sodium 136 Potassium 3.6 Chloride 95 L Carbon Dioxide 34 H Anion Gap 7 BUN 23 Creatinine 0.50 L Est Cr Clr Drug Dosing 62.9 eGFR 100.21 BUN/Creatinine Ratio 46.0 H Glucose 136 H Calcium 8.9 Magnesium 2.0 Total Bilirubin 0.3 AST 26 ALT 16 Alkaline Phosphatase 78 C-Reactive Protein < 0.50 Total Protein 6.9 Albumin 3.2 L Globulin 3.7 Albumin/Globulin Ratio 0.9 Microbiology 12/17/24 01:25 Urine,Clean Catch Urine Culture - Final Enterococcus faecium VRE Medications Administered Home Medications Medication Instructions Recorded Confirmed Last Taken buspirone 5 mg tablet 5 mg PO BID PRN Anxiety 10/31/19 12/16/24 11/29/24 08:00 aspirin 81 mg tablet,delayed 81 mg PO QAM 01/23/21 12/16/24 11/29/24 release sodium chloride 0.65 % nasal spray 2 spray NA DIRECTED PRN 03/24/21 12/16/24 Unknown aerosol (Saline Mist) Congestion budesonide 160 mcg-glycopyr 9 2 inh inhalation AMHS 12/17/22 12/16/24 11/29/24 08:00 mcg-formot 4.8 mcg/actuation HFA inhaler (Breztri Aerosphere) levothyroxine 75 mcg tablet 75 mcg PO DAILYBB 07/12/24 12/16/24 11/29/24 clopidogrel 75 mg tablet 75 mg PO QAM #30 tabs 07/14/24 12/16/24 11/29/24 09:00 acetaminophen 160 mg/5 mL (5 mL) 650 mg PO Q6H PRN pain/fever 10/13/24 12/16/24 Unknown oral solution cyanocobalamin (vitamin B-12) 500 500 mcg PO DAILY 10/13/24 12/16/24 11/29/24 08:00 mcg tablet (Vitamin B-12) lidocaine 4 % topical patch 1 patch topical DAILY Pain 10/13/24 12/16/24 Unknown ipratropium 0.5 mg-albuterol 3 mg 3 ml NEB Q2H PRN shortness of 10/22/24 12/16/24 Unknown (2.5 mg base)/3 mL nebulization breath or wheezing #180 mL soln sodium chloride 3 % for 3 ml inhalation Q6H PRN thickened 10/22/24 12/16/24 Unknown nebulization secretions 30 days #120 mL acetylcysteine 100 mg/mL (10 %) 4 ml inhalation AMHS 11/12/24 12/16/24 11/29/24 09:00 solution atorvastatin 40 mg tablet 40 mg PO HS 11/12/24 12/16/24 11/29/24 09:00 ipratropium 20 mcg-albuterol 100 2 puff inhalation Q6H PRN Wheezing 11/12/24 12/16/24 Unknown mcg/actuation mist for inhalation (Combivent Respimat) isosorbide mononitrate 10 mg tablet 10 mg PO BID #60 tabs 11/17/24 12/16/24 11/29/24 20:00 lorazepam 0.5 mg tablet 0.5 mg sublingual Q8H PRN Anxiety 11/17/24 12/16/24 Unknown or insomnia #30 tabs venlafaxine 75 mg tablet 75 mg PO TIDM #90 tabs 11/17/24 12/16/24 Unknown bumetanide 1 mg tablet 1 mg PO QAM 12/01/24 12/16/24 Unknown metoprolol tartrate 25 mg tablet 75 mg (3 x 25 mg) PO QAM #30 tabs 12/04/24 12/16/24 Unknown metoprolol tartrate 50 mg tablet 50 mg PO PM #30 tabs 12/04/24 12/16/24 Unknown baclofen 10 mg tablet 2.5 mg (1/4 x 10 mg) PO BID PRN 12/13/24 12/16/24 10/13/24 08:00 Muscle spasm #15 tabs diclofenac sodium 1 % topical gel 4 g EXT BID Apply to affected 12/13/24 12/16/24 Unknown (Voltaren Arthritis Pain) joint for joint pain #100 grams fluconazole 100 mg tablet 200 mg (2 x 100 mg) PO DAILY@1700 12/13/24 12/16/24 Unknown #2 tabs gabapentin 100 mg capsule 100 mg PO BID #60 caps 12/13/24 12/16/24 Unknown sulfamethoxazole 800 1 tab PO Q12 #4 tabs 12/13/24 12/16/24 Unknown mg-trimethoprim 160 mg tablet (Bactrim DS) Active Medications Generic Name Dose Route Start Last Admin Trade Name Freq PRN Reason Stop Dose Admin Acetaminophen 650 mg 12/17/24 03:04 12/19/24 17:18 Acetaminophen 325 Mg Tab PO 01/16/25 03:03 650 mg Q4H PRN Administration Pain or Fever Acetylcysteine 4 ml 12/17/24 07:00 12/20/24 07:11 Acetylcysteine 10% Inhal Soln 4 Ml Dispensed By Resp. INH 01/16/25 06:59 4 ml BIDR JUANY Administration Al Hydrox/Mg Hydrox/Simethicone 15 ml 12/17/24 03:04 12/20/24 13:50 Aluminum/Magnesium Susp 30 Ml Udc PO 01/16/25 03:03 15 ml Q4H PRN Administration Dyspepsia Albuterol 3 ml 12/17/24 03:04 12/20/24 07:11 Albut/Ipratrop 3mg/0.5mg Neb 3 Ml Vial NEB 01/16/25 03:03 3 ml Q2H PRN Administration shortness of breath or wheezing Protocol Aspirin 81 mg 12/17/24 09:00 12/20/24 07:59 Aspirin 81 Mg Ectab PO 01/16/25 08:59 81 mg QAM JUANY Administration Atorvastatin Calcium 40 mg 12/17/24 21:00 12/19/24 21:21 Atorvastatin 40 Mg Tab PO 01/16/25 20:59 40 mg HS JUANY Administration Bumetanide 1 mg 12/17/24 09:00 12/20/24 08:00 Bumetanide 1 Mg Tab PO 01/16/25 08:59 1 mg QAM JUANY Administration Clopidogrel Bisulfate 75 mg 12/17/24 09:00 12/20/24 07:58 Clopidogrel Bisulfate 75 Mg Tab PO 01/16/25 08:59 75 mg QAM JUANY Administration Cyanocobalamin 500 mcg 12/17/24 09:00 12/20/24 07:59 Cyanocobalamin (B-12) 500 Mcg Tablet PO 01/16/25 08:59 500 mcg DAILY JUANY Administration Diclofenac Sodium 4 gm 12/17/24 09:00 12/20/24 08:01 Diclofenac Sod 1% Gel 100 Gm Tube EXT 01/16/25 08:59 4 gm BID JUANY Administration Protocol Fluticasone Furoate 1 puffs 12/17/24 09:00 12/20/24 08:01 Fluticasone Furoate 200mcg 14 Puffs/Inhaler INH 01/16/25 08:59 1 puffs DAILY JUANY Administration Isosorbide Mononitrate 10 mg 12/17/24 09:00 12/20/24 07:56 Isosorbide Mononitrate 20 Mg Tab PO 01/16/25 08:59 10 mg BID JUANY Administration Levothyroxine Sodium 75 mcg 12/17/24 06:30 12/20/24 06:09 Levothyroxine Sodium 75 Mcg Tablet PO 01/16/25 06:29 75 mcg DAILYBB JUANY Administration Lidocaine 1 patch 12/19/24 09:00 12/20/24 08:01 Lidocaine 5% 1 Patch TD 01/18/25 08:59 1 patch QAM JUANY Administration Lorazepam 0.5 mg 12/17/24 03:04 12/17/24 22:18 Lorazepam 0.5 Mg Tab SL 01/16/25 03:03 0.5 mg Q8H PRN Administration Anxiety or insomnia Metoprolol Tartrate 50 mg 12/17/24 21:00 12/19/24 21:20 Metoprolol Tartrate 50 Mg Tab PO 01/16/25 20:59 50 mg PM JUANY Administration Metoprolol Tartrate 75 mg 12/17/24 09:00 12/20/24 07:57 Metoprolol Tartrate 25 Mg Tab PO 01/16/25 08:59 75 mg QAM JUANY Administration Miscellaneous 1 each 12/19/24 21:00 12/19/24 21:17 Remove Lidoderm Patch N/A 01/18/25 20:59 1 each HS JUANY Administration Morphine Sulfate 5 mg 12/17/24 21:59 12/20/24 08:06 Morphine Sulfate 10 Mg/0.5 Ml Udp PO 12/31/24 21:58 5 mg Q6H PRN Administration moderate-severe Pain Nitrofurantoin Macrocrystals 100 mg 12/18/24 21:00 12/20/24 07:58 Nitrofurantoin Monohydrate 100 Mg Cap PO 12/23/24 20:59 100 mg BID JUANY Administration Ondansetron HCl 4 mg 12/17/24 03:04 12/19/24 10:02 Ondansetron Inj 2 Mg/Ml 2 Ml Vial IV 01/16/25 03:03 4 mg Q6H PRN Administration Nausea Prednisone 20 mg 12/18/24 21:00 12/20/24 07:59 Prednisone 20 Mg Tab PO 01/17/25 20:59 20 mg BID JUANY Administration Sodium Chloride 4 ml 12/17/24 07:00 12/20/24 08:04 Sodium Chlor 7% 4 Ml Neb NEB 01/16/25 06:59 4 ml BIDR JUANY Administration Umeclidinium/Vilanterol 1 puffs 12/17/24 09:00 12/20/24 08:01 Umeclidinium/Vilanterol 62.5/25mcg 7 Puffs/Inhaler INH 01/16/25 08:59 1 puffs DAILY JUANY Administration Venlafaxine HCl 75 mg 12/18/24 08:00 12/20/24 15:46 Venlafaxine Hcl 37.5 Mg Tab PO 01/17/25 07:59 75 mg TID@0800,1600,2200 JUANY Administration
[2024-12-21] MEDS: LOPERAMIDE HCL 2 MG CAP PO STA (06:40)
[2024-12-21 06:53] LABS: Hematocrit (blood only) 35.2 % (37.0-47.0); Hemoglobin 11.3 g/dl (12.0-16.0); Immature Granulocytes # (auto) 0.03 K/uL (0.01-0.20); Immature Granulocytes % (auto) 0.3 %; Mean Corpuscular Hemoglobin 29.0 pg (25.0-34.0); Mean Corpuscular Volume 90.5 fL (80.0-100.0); Platelet Count 358 K/uL (130-400); RDW Standard Deviation 46.9 fL (36.4-46.3); Red Blood Count 3.89 M/uL (4.20-5.40); White Blood Count 9.18 K/ul (4.8-10.8)
[2024-12-21 07:22] LABS: Anion Gap 7 (3-11); Blood Urea Nitrogen 25 mg/dl (6-23); Calcium 9.2 mg/dl (8.6-10.3); Carbon Dioxide 34 mmol/L (21-32); Chloride 94 mmol/L (98-107); Creatinine Clr Calc Pharmacy 64.2 ml/min; Glucose 124 mg/dl (70-99(Fasting)); Magnesium 2.1 mg/dl (1.7-2.4); Potassium 3.7 mmol/L (3.5-5.1); Sodium 135 mmol/L (136-145)
[2024-12-21 07:37] VITALS: RESP 18
[2024-12-21 07:55] VITALS: BP 187/69; PULSE 82; TEMP 98.1; O2SAT 100
[2024-12-21] MEDS: predniSONE 20 MG TAB PO SCH (09:08)
[2024-12-21] MEDS: busPIRone 5 MG TAB PO PRN (09:08)
--- NOTE | 2024-12-21 13:15 | Discharge Summary ---
Discharge Summary Date of Service December 21, 2024 Principal Dx & Hospital Course #1 = Principal Diagnosis (1) Chronic hypercapnia: (2) Generalized muscle weakness: López Cohen is a 69 y/o female with history of CAD s/p PCI, HTN, COPD, laryngeal cancer s/p tracheostomy with chronic respiratory failure on 4 L trach collar, hypothyroidism, PAD with right subclavian artery stenosis and EZIO, here with generalized weakness. Patient was recently admitted under our service for PNA, discharge on 12/12 with Bactrim and fluconazole. Daughter at bedside,. Daughter states she was doing well after discharge until today that she felt very weak. 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 Recently started on gabapentin for chronic pain, but she states that she hasn't been taking due how it makes her feel. She denied any chills or fevers but states feeling very hot. She states that have full body pain. Denied any sick contacts but had multiple hospitalizations the last couple of months Labs remarkable for hgb of 10.2, no leukocytosis.BNP 675, Troponin 15.7. Creatinine within normal levels. VBG with normal ph, CO2 mildly elevated at 51. Negative procalcitonin. Chest Xray without any acute process, no consolidations, no effusions. Chest CT: No acute findings, emphysematous changes, tracheostomy cannula is appropriately positioned. Abdomen Ct without any acute findings. Will admit patient for further treated due to acute on chronic respiratory failure and weakness Acute on chronic hypercapnic respiratory failure/ COPD - Patient recently finished treatment for PNA with Bactrim and fluconazole - Ct without any signs of acute illness - Oxygen at approximately 7 L - sputum and breathing have returned to baseline. Her energy level is starting to improve - after lengthy discussion of the risks and benefits of rehab placement versus home health. Patient elects for ongoing home health, interval increase in services. 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 Will follow closely. Handout given in regards to VRE. Will have her follow with the primary clinic for ongoing discussion in regards of how and when to start antibiotics if she does develop urinary symptoms. #Weakness/ chronic pain - neuropathy? - Patient started on gabapentin on prev admission - Patient held the medications because believes it was not helping, didn't like how she felt with it -Patient was recommended rehab on previous admissions but she declined it as she was improving. She was dc with home health - Will continue gabapentin as this helped symptoms in the past, monitor symptoms - Tylenol as needed, continue lidocaine patch - PT/OT, see assessments, returning back to her baseline - at baseline, continue with home therapy # Chronic HFpEF - continue Bumex, patient dry on exam, no signs of decompensated at this time - euvolemic at the time of discharge #Iron deficiency and B12 deficiency anemia - Received IV Venofer 300 mg x1, - continue iron supplement on discharge #Dysphagia/ chronic oropharyngeal aspirator: - swallow study 11/16 demonstrated aspiration with thin liquids - Needs out patient close follow-up with her ENT for laryngoscopy #CAD/PAD/subclavian stenosis/carotid stenosis - continue Plavix, isosorbide and aspirin, asymptomatic at this time #hypothyroidism-recent TSH is normal - continue Synthroid #hypertension- - continue antihypertensives isosorbide and metoprolol #anxiety -continue venlafaxine, buspirone -lorazepam as needed #recent GI bleed/cecal ulceration - stable hemoglobin no new symptoms - on aspirin and Plavix - Continue to monitor Admission HPI Per Admitting Provider Vicki is a 69 y/o female with history of CAD s/p PCI, HTN, COPD, laryngeal cancer s/p tracheostomy with chronic respiratory failure on 4 L trach collar, hypothyroidism, PAD with right subclavian artery stenosis and EZIO, here with generalized weakness. Patient was recently admitted under our service for PNA, discharge on 12/12 with Bactrim and fluconazole. Daughter at bedside,. Daughter states she was doing well after discharge until today that she felt very weak. 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 Recently started on gabapentin for chronic pain, but she states that she hasn't been taking due how it makes her feel. She denied any chills or fevers but states feeling very hot. She states that have full body pain. Denied any sick contacts but had multiple hospitalizations the last couple of months Labs remarkable for hgb of 10.2, no leukocytosis.BNP 675, Troponin 15.7. Creatinine within normal levels. VBG with normal ph, CO2 mildly elevated at 51. Negative procalcitonin. Chest Xray without any acute process, no consolidations, no effusions. Chest CT: No acute findings, emphysematous changes, tracheostomy cannula is appropriately positioned. Abdomen Ct without any acute findings. Will admit patient for further treated due to acute on chronic respiratory failure and weakness Discharge Exam Constitutional: well developed, well nourished and + ill appearing; no acute distress Eyes: PERRL, conjunctivae normal, anicteric sclerae Neck: + tracheostomy present Respiratory: normal respiratory effort, lungs clear to auscultation, communicated by occluding trach Cardiovascular: RRR, no murmur, no edema Gastrointestinal (Abdomen): normal bowel sounds, soft, nontender, no hepatosplenomegaly Skin: Mildly cyanotic/dusky appearance to the feet, intact cap refill, extremities warm Psychiatric: A+Ox3, euthymic affect Discharge Plan Discharge Items Patient Disposition: Home - Home Health Services Reason For Visit: ACUTE RESPIRARTORY FAILURE, WEAKNESS Discharge Diagnosis: weakness, UTI, chronic respiratory failure Condition on Discharge: Fair Activity: Resume your previous activity Non-emergency contact: Primary Care Provider Call non-emergency contact if: you have any medication questions, your symptoms worsen, your pain is not controlled and you have a fever Follow-up/Referrals: Paola Wilson MD [Primary Care Provider] - Diet: Heart Healthy Addtl Attending Provider Instructions: - recent significant increase in polymicrobial pathogen with significant resistance patterns - continue to provide assistance with home health services - early intervention plan for further urinary or pulmonary infection Pending Studies at Discharge: No Stand-Alone Forms: My [facility] [employer], Smoking Cessation Medications and DC Order Prescriptions: New prednisone 20 mg Tablet 20 mg PO DAILY 5 Days Qty: 5 0RF nitrofurantoin monohyd/m-cryst [Macrobid] 100 mg Capsule 100 mg PO BID 2 Days Qty: 4 0RF Continued buspirone 5 mg tablet 5 mg PO BID PRN (Reason: Anxiety) Saline Mist 0.65 % aerosol,spray 2 spray NA DIRECTED PRN (Reason: Congestion) Layla Aerosphere 160-9-4.8 mcg/actuation HFA aerosol inhaler 2 inh INHALATION [facility] aspirin 81 mg Tablet,Delayed Release (Dr/Ec) 81 mg PO QAM ipratropium-albuterol 0.5 mg-3 mg(2.5 mg base)/3 mL Solution For Nebulization 3 ml NEB Q2H PRN (Reason: shortness of breath or wheezing) Qty: 180 0RF sodium chloride 3 % Solution For Nebulization 3 ml INHALATION Q6H PRN (Reason: thickened secretions) 30 Days Qty: 120 0RF levothyroxine 75 mcg tablet 75 mcg PO DAILYBB clopidogrel 75 mg Tablet 75 mg PO QAM Qty: 30 0RF lidocaine 4 % Adhesive Patch,Medicated 1 patch TOPICAL DAILY Rx Instructions: ON BACK FOR 12 HR. THEN REMOVE cyanocobalamin (vitamin B-12) [Vitamin B-12] 500 mcg Tablet 500 mcg PO DAILY acetaminophen 160 mg/5 mL (5 mL) Solution 650 mg PO Q6H PRN (Reason: pain/fever) Patient Comments: PT HAS HARD TIME SWALLOWING PILLS acetylcysteine 100 mg/mL (10 %) solution 4 ml inhalation [facility] Combivent Respimat 20-100 mcg/actuation mist 2 puff INHALATION Q6H PRN (Reason: Wheezing) Rx Instructions: WITH SPACER atorvastatin 40 mg tablet 40 mg PO HS isosorbide mononitrate 10 mg tablet 10 mg PO BID Qty: 60 0RF lorazepam 0.5 mg Tablet 0.5 mg sublingual Q8H PRN (Reason: Anxiety or insomnia) Qty: 30 0RF venlafaxine 75 mg tablet 75 mg PO TIDM Qty: 90 0RF Rx Instructions: take with food bumetanide 1 mg tablet 1 mg PO QAM metoprolol tartrate 50 mg Tablet 50 mg PO PM Qty: 30 0RF metoprolol tartrate 25 mg Tablet 75 mg PO QAM Qty: 30 0RF diclofenac sodium [Voltaren Arthritis Pain] 1 % Gel 4 g EXT BID Qty: 100 0RF Rx Instructions: Please give tube from hospital gabapentin 100 mg Capsule 100 mg PO BID Qty: 60 0RF baclofen 10 mg Tablet 2.5 mg PO BID PRN (Reason: Muscle spasm) Qty: 15 0RF Patient Comments: PRESCRIBED 10MG PO BID; PT TAKES 10MG DAILY PRN Discontinued fluconazole 100 mg Tablet 200 mg PO DAILY@1700 Qty: 2 0RF sulfamethoxazole-trimethoprim [Bactrim DS] 800-160 mg Tablet 1 tab PO Q12 Qty: 4 0RF Discharge Orders: Discharge Order (Routine); Ordered 12/21/24 Ordered By: Alexandre Lee/Other Patient Handouts: VRE Infection Admission Data Admit Date/Time: 12/17/24 01:02 Attending Provider: Alexandre Lainez Admit Provider: Johnny Patiño Primary Care Provider: Paola Wilson Other Providers: Maurisio Zaidi [facility] Hospital Stay Data Consultations 12/16/24 23:53 ED Decision to Admit Stat 12/20/24 10:06 Consult Infectious Diseases Stat Diagnostic Imagining Performed 12/16/24 21:18 CT Abd and Pelvis [CT abd pelvis IV con only] Stat CT chest diagnostic w con Stat Pending Results Patient Have Any Pending Studies at Discharge: No Discharge Instructions Given to Patient (Per Discharging Provider) - recent significant increase in polymicrobial pathogen with significant resistance patterns - continue to provide assistance with home health services - early intervention plan for further urinary or pulmonary infection Total Time Total Time Spent Total Time Spent (In Minutes): 42 minutes spend coordinating with case management and care planning, at bedside discussing medication changes and follow-up and reasons to return Coding Level of Care Code 32299 INP/OBS DISCH >30 MIN Diagnoses Chronic hypercapnia R06.89 Generalized muscle weakness M62.81
== END 2024-12-21 16:37 | disposition home health service (06) | DRG 189 ==
LOC: ED 20:49 → 2N 12-17 01:02 → SUATTDRO 12-17 01:02 → 2N 12-17 02:33

== ENCOUNTER 2025-01-09 10:56 | Inpatient (IN) ==
--- NOTE | 2025-01-09 11:13 | Emergency Department Note ---
Impression & Plan Weakness, Fall, Pneumonia ED Provider Note NAME: BHAVNA CAT AGE: 69 SEX: F : 1955 ARRIVES VIA: Ambulance INFORMANT: Patient ED PROVIDER(S): Dennis Olea DO CHIEF COMPLAINT: Fall HPI: Patient is a 69-year-old female with a past medical history of hypertension, hypothyroidism, CAD, PAD, hyponatremia and trach who presents to the ER following a fall. She was on the couch and she was try to grab something off the floor and she fell and hit her head. She is on Plavix. She notes she feels weaker than usual. Denies any chest pain or shortness of breath. No belly pain. No nausea, vomiting or diarrhea. No dysuria, urgency or frequency. No other exacerbating or remitting factors. ADDITIONAL HISTORY OBTAINED: Per HPI Chronic Medical/Social Conditions Affecting Care: Per HPI PAST MEDICAL HISTORY:See Below PAST SURGICAL HISTORY:See Below FAMILY HISTORY:See Below SOCIAL HISTORY:See Below HOME MEDICATIONS:See Below ALLERGIES:See Below VITALS:See Below PHYSICAL EXAMINATION: GENERAL: Sitting up in bed, alert, well appearing, well nourished, no distress, non-toxic HEAD: NC/AT EYE EXAM: normal conjunctiva. PERRL and EOM's grossly intact. OROPHARYNX: no exudate, no erythema, lips, buccal mucosa, and tongue normal and mucous membranes are moist NECK: supple, no nuchal rigidity, no adenopathy, non-tender, trach collar in place LUNGS: Clear to auscultation. Normal chest wall mechanics HEART: no murmurs, S1 normal and S2 normal ABDOMEN: abdomen soft, non-tender, normo-active bowel sounds, no masses, no rebound or guarding. BACK: Back is symmetrical on inspection and there is no deformity, no midline tenderness, no CVA tenderness. SKIN: no rashes and no bruising UPPER EXTREMITIES: upper extremities are grossly normal. LOWER EXTREMITIES: No pitting edema. NEURO EXAM: Normal sensorium, cranial nerves II-XII intact, normal speech, no weakness of arms, no weakness of legs. No drift. Finger to nose intact. Gross sensation intact. MEDICAL DECISION MAKING: Patient is a 69-year-old female who presents to the ER with above-stated complaint. IV was established and blood work is obtained. She was placed on 3 L via trach collar. Labs showed no significant leukocytosis. Hemoglobin at 8.8 down from 11. BMP along with LFTs bilirubin and lipase unremarkable. UA was clean. Viral panel was negative. Chest x-ray with questionable pneumonia. Hemoglobin did drop and she had a bloody bowel movement on Wednesday. She has had no bowel movement since then. With the weakness, drop in hemoglobin and possible pneumonia patient was given IV cefepime and vancomycin. Discussed case with the hospitalist for further evaluation management treatment. Consults/Care Managements Discussions: Per MDM Triage Nursing notes reviewed. Limited review of prior medical records performed Vital Signs: reviewed and remarkable for no significant abnormalities Differential diagnosis: Infection, dehydration, metabolic abnormality, hypo/hyperglycemia, electrolyte disturbance, anemia, hypoxia, cardiac sources, intracerebral event, toxicologic, neurologic, as well as other pathologies. ER treatment provided: See below Diagnostics interpreted by me include EKG and cardiac monitoring as listed below: -Cardiac Monitoring: An order was placed for continuous cardiac monitoring. The monitor shows a rate of 101 with sinus rhythm. -ECG: Sinus tachycardia rate of [address] depressions Worse when comparison to previous -Laboratory studies:Interpreted by me as stated above in MDM and shown below. Imaging studies: Xrays: As interpreted by me: Portable AP upright 1 view of the chest shows questionable pneumonia CTs show: CT head was negative per radiology Procedures:none Critical Care: None Past Med/Surg History Problem List (Updated 01/09/25 @ 16:22 by Dennis Olea DO) Pneumonia (Acute) Fall (Acute) Weakness (Acute) Weakness Anemia Acute hyponatremia (Acute) Difficulty performing activity of daily living (ADL) (Acute) Acute thoracic back pain (Acute) Chronic hypercapnia (Acute) Acute exacerbation of chronic obstructive pulmonary disease (Acute) Generalized muscle weakness (Acute) Chronic hypercapnia Tracheobronchitis (Acute) Thrush Diuretic-induced hypokalemia Sinus tachycardia ASCVD (arteriosclerotic cardiovascular disease) Chest pain, rule out acute myocardial infarction Hypertension (Chronic) Hypothyroidism (Chronic) CAD (coronary artery disease) (Chronic) Peripheral arterial disease (Chronic) Subclavian artery stenosis, right (Chronic) Carotid stenosis (Chronic) Hyponatremia (Chronic) Medical History Cecal ulcer GI bleed Tracheostomy dependent Pneumonia Encounter for pre-operative examination Chronic hypoxic respiratory failure, on home oxygen therapy CAD (coronary artery disease) 2008 - LAD stent 2016 - LITTLE to mid LAD CHF (congestive heart failure) Labile hypertension Acute kidney injury superimposed on CKD 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 Home Meds Home Medications Medication Instructions Recorded Confirmed buspirone 5 mg tablet 5 mg PO BID 10/31/19 01/09/25 aspirin 81 mg tablet,delayed 81 mg PO QAM 01/23/21 01/09/25 release sodium chloride 0.65 % nasal spray 2 spray NA DIRECTED PRN 03/24/21 01/09/25 aerosol (Saline Mist) Congestion budesonide 160 mcg-glycopyr 9 2 inh inhalation AMHS 12/17/22 01/09/25 mcg-formot 4.8 mcg/actuation HFA inhaler (Breztri Aerosphere) levothyroxine 75 mcg tablet 75 mcg PO DAILYBB 07/12/24 01/09/25 acetaminophen 160 mg/5 mL (5 mL) 650 mg PO Q6H PRN pain/fever 10/13/24 01/09/25 oral solution cyanocobalamin (vitamin B-12) 500 500 mcg PO Q OTHER DAY 10/13/24 01/09/25 mcg tablet (Vitamin B-12) lidocaine 4 % topical patch 1 patch topical DAILY PRN Pain 10/13/24 01/09/25 acetylcysteine 100 mg/mL (10 %) 4 ml inhalation AMHS 11/12/24 01/09/25 solution atorvastatin 40 mg tablet 40 mg PO HS 11/12/24 01/09/25 ipratropium 20 mcg-albuterol 100 2 puff inhalation Q6H PRN Wheezing 11/12/24 01/09/25 mcg/actuation mist for inhalation (Combivent Respimat) bumetanide 1 mg tablet 1 mg PO QAM 12/01/24 01/09/25 diclofenac sodium 1 % topical gel 4 g EXT BID PRN Apply to affected 01/09/25 01/09/25 (Voltaren Arthritis Pain) joint for joint pain metoprolol tartrate 50 mg tablet 75 mg PO QAM 01/09/25 01/09/25 Previous Rx's Medication Instructions Recorded clopidogrel 75 mg tablet 75 mg PO QAM #30 tabs 07/14/24 ipratropium 0.5 mg-albuterol 3 mg 3 ml NEB Q2H PRN shortness of 10/22/24 (2.5 mg base)/3 mL nebulization breath or wheezing #180 mL soln sodium chloride 3 % for 3 ml inhalation Q6H PRN thickened 10/22/24 nebulization secretions 30 days #120 mL isosorbide mononitrate 10 mg tablet 10 mg PO BID #60 tabs 11/17/24 venlafaxine 75 mg tablet 75 mg PO TIDM #90 tabs 11/17/24 metoprolol tartrate 50 mg tablet 50 mg PO PM #30 tabs 12/04/24 baclofen 10 mg tablet 2.5 mg (1/4 x 10 mg) PO BID PRN 12/13/24 Muscle spasm #15 tabs gabapentin 100 mg capsule 100 mg PO BID #60 caps 12/13/24 Results & Data (ED) Vital Signs Vital Signs - 24 hr 01/09/25 11:10 01/09/25 11:20 01/09/25 11:20 Temperature 37.0 C 37 C Temperature Source Oral Oral Pulse Rate 72 66 Pulse Rate [Apical] 72 Pulse Rhythm Regular Pulse Rhythm [Apical] Regular Pulse Strength Normal Pulse Strength [Apical] Normal Respiratory Rate 20 20 Respiratory Effort / Characteristics Non-Labored Spontaneous Non-Labored Spontaneous Respiratory Depth Normal Normal Respiratory Pattern Regular Regular Blood Pressure 127/38 L Blood Pressure [Left Arm] 127/38 L Blood Pressure Mean 67 Blood Pressure Mean [Left Arm] 67 Blood Pressure Position [Left Arm] Semi-fowlers Pulse Oximetry 100 100 Oxygen Delivery Method Nasal Cannula Other Oxygen Flow Rate 10 10 Sepsis Recent Fever Within 48 Hours No Sepsis New/Unexplained Change in Mental Status No Sepsis Action Taken by Nursing No Action Required Oxygen Flow Rate - Titration Pulse Oximetry Post Tiitration 01/09/25 11:33 01/09/25 11:41 01/09/25 12:00 Temperature Temperature Source Pulse Rate 72 Pulse Rate [Apical] 70 Pulse Rhythm Regular Pulse Rhythm [Apical] Regular Pulse Strength Pulse Strength [Apical] Normal Respiratory Rate 20 16 Respiratory Effort / Characteristics Non-Labored Spontaneous Respiratory Depth Normal Respiratory Pattern Regular Blood Pressure Blood Pressure [Left Arm] 103/68 Blood Pressure Mean Blood Pressure Mean [Left Arm] 79 Blood Pressure Position [Left Arm] Semi-fowlers Pulse Oximetry 100 97 96 Oxygen Delivery Method Non-rebreather Trach Collar Trach Collar Trach Collar Oxygen Flow Rate 10 3 3 Sepsis Recent Fever Within 48 Hours Sepsis New/Unexplained Change in Mental Status Sepsis Action Taken by Nursing Oxygen Flow Rate - Titration 3 Pulse Oximetry Post Tiitration 98 01/09/25 13:00 01/09/25 14:00 01/09/25 15:00 Temperature Temperature Source Pulse Rate Pulse Rate [Apical] 77 75 81 Pulse Rhythm Pulse Rhythm [Apical] Regular Regular Pulse Strength Pulse Strength [Apical] Normal Normal Respiratory Rate 24 15 23 Respiratory Effort / Characteristics Non-Labored Spontaneous Non-Labored Spontaneous Non-Labored Spontaneous Respiratory Depth Normal Normal Normal Respiratory Pattern Regular Regular Blood Pressure Blood Pressure [Left Arm] 125/60 152/58 H 142/70 H Blood Pressure Mean Blood Pressure Mean [Left Arm] 81 89 94 Blood Pressure Position [Left Arm] Semi-fowlers Semi-fowlers Pulse Oximetry 98 100 96 Oxygen Delivery Method Trach Collar Trach Collar Trach Collar Oxygen Flow Rate 3 3 2 Sepsis Recent Fever Within 48 Hours Sepsis New/Unexplained Change in Mental Status Sepsis Action Taken by Nursing Oxygen Flow Rate - Titration Pulse Oximetry Post Tiitration 01/09/25 15:00 01/09/25 15:53 01/09/25 16:00 Temperature Temperature Source Pulse Rate 80 Pulse Rate [Apical] 88 80 Pulse Rhythm Pulse Rhythm [Apical] Regular Pulse Strength Pulse Strength [Apical] Normal Respiratory Rate 24 15 Respiratory Effort / Characteristics Non-Labored Spontaneous Respiratory Depth Normal Respiratory Pattern Regular Blood Pressure Blood Pressure [Left Arm] 156/61 H Blood Pressure Mean Blood Pressure Mean [Left Arm] 92 Blood Pressure Position [Left Arm] Semi-fowlers Pulse Oximetry 98 96 Oxygen Delivery Method Trach Collar Oxygen Flow Rate 3 Sepsis Recent Fever Within 48 Hours Sepsis New/Unexplained Change in Mental Status Sepsis Action Taken by Nursing Oxygen Flow Rate - Titration Pulse Oximetry Post Tiitration Laboratory Data 01/09/25 11:59 01/09/25 11:59 Lab Results 01/09/25 01/09/25 Range/Units 11:59 12:30 WBC 8.95 (4.8-10.8) K/ul RBC 2.92 L (4.20-5.40) M/uL Hgb 8.8 L (12.0-16.0) g/dl Hct 27.6 L (37.0-47.0) % MCV 94.5 (80.0-100.0) fL MCH 30.1 (25.0-34.0) pg MCHC 31.9 L (32.0-36.0) g/dL RDW Std Deviation 56.5 H (36.4-46.3) fL RDW Coeff of Jair 16.4 H (11.5-14.5) % Plt Count 361 (130-400) K/uL MPV 10.0 (9.4-12.4) fL Immature Gran % (Auto) 0.6 % Neut % (Auto) 77.7 % Lymph % (Auto) 13.1 % Tama % (Auto) 5.4 % Eos % (Auto) 2.8 % Baso % (Auto) 0.4 % Neut # (Auto) 6.96 H (1.40-6.50) K/uL Lymph # (Auto) 1.17 L (1.20-3.40) K/uL Tama # (Auto) 0.48 (0.11-0.59) K/uL Eos # (Auto) 0.25 (0.00-0.50) K/uL Baso # (Auto) 0.04 (0.00-0.20) K/uL Immature Gran # (Auto) 0.05 (0.01-0.20) K/uL Sodium 137 (136-145) mmol/L Potassium 3.6 (3.5-5.1) mmol/L Chloride 98 (98-107) mmol/L Carbon Dioxide 31 (21-32) mmol/L Anion Gap 8 (3-11) BUN 16 (6-23) mg/dl Creatinine 0.57 L (0.6-1.2) mg/dl Est Cr Clr Drug Dosing 60.5 ml/min eGFR 97.10 BUN/Creatinine Ratio 28.1 H (10-20) Glucose 86 (70-99(Fasting)) mg/dl Calcium 9.1 (8.6-10.3) mg/dl Total Bilirubin 0.3 (0.2-1.0) mg/dl AST 20 (13-39) U/L ALT 14 (7-52) U/L Alkaline Phosphatase 74 (34-104) U/L Total Protein 7.2 (6.0-8.3) gm/dl Albumin 3.7 (3.4-5.0) gm/dl Globulin 3.5 (2.5-4.0) gm/dl Albumin/Globulin Ratio 1.1 (0.9-2) Lipase 31 (11-82) U/L Urine Color Yellow Urine Appearance Clear (Clear) Urine pH 7.0 (4.5-7.5) Ur Specific [place] 1.013 (1.000-1.030) Urine Protein Negative (Negative) Urine Glucose (UA) Negative (Negative) Urine Ketones Negative (Negative) Urine Blood Negative (Negative) Urine Nitrite Negative (Negative) Urine Bilirubin Negative (Negative) Urine Urobilinogen Negative (Negative) Ur Leukocyte Esterase 1+ H (Negative) Urine WBC (Auto) 0-5 (0-5) /hpf Urine RBC (Auto) 0-2 (0-2) /hpf U Hyaline Cast (Auto) 3-5 H (0-2) /lpf U Epithel Cells (Auto) 0-2 (0-2) /hpf Urine Bacteria (Auto) None Seen (None Seen) Urine Comment Adenovirus (PCR) Not Detected (NotDetected) B. pertussis DNA (PCR) Not Detected (NotDetected) B.parapertussis DNA PCR Not Detected (NotDetected) C. pneumoniae DNA (PCR) Not Detected (NotDetected) Coronavirus OC43 (PCR) Not Detected (NotDetected) Coronavirus HKU1 (PCR) Not Detected (NotDetected) Coronavirus 229E (PCR) Not Detected (NotDetected) SARS-CoV-2 (PCR) Not Detected (NotDetected) Coronavirus NL63 (PCR) Not Detected (NotDetected) Human Metapneumovir PCR Not Detected (NotDetected) Influenza Type A (PCR) Not Detected (NotDetected) Influenza Type B (PCR) Not Detected (NotDetected) M. pneumoniae (PCR) Not Detected (NotDetected) Parainfluenza 1 (PCR) Not Detected (NotDetected) Parainfluenza 2 (PCR) Not Detected (NotDetected) Parainfluenza 3 (PCR) Not Detected (NotDetected) Parainfluenza 4 (PCR) Not Detected (NotDetected) RSV (PCR) Not Detected (NotDetected) Entero/Rhino (PCR) Not Detected (NotDetected) Administered Medications Vancomycin HCl 750 mg/ Sodium (Chloride) 265 mls @ 125 mls/hr IV NOW ONE Stop: 01/09/25 16:22 Last Admin: 01/09/25 15:05 Dose: 125 mls/hr Documented By: ASW Discontinued Medications Cefepime HCl (Maxipime 2000mg) 2,000 mg in 20 mls @ 5 mls/min IV NOW STA; Protocol Stop: 01/09/25 13:57 Last Admin: 01/09/25 15:05 Dose: 5 mls/min Documented By: ASW Imaging Data Radiologist's Impression: Cervical Spine CT 11/04/25 11:10 CT cervical spine wo con CT DOSE: 1803.77 mGy.cm CLINICAL HISTORY: 69 years-old Female with fall. Acute neck pain status post fall COMPARISON: CT soft tissue neck 12/06/2024 TECHNIQUE: Multiple axial CT images of the cervical spine were obtained without contrast. A dose lowering technique was utilized adhering to the principles of ALARA. FINDINGS: Demineralized appearance of bones with mild to moderate multilevel degenerative changes. Study is limited secondary to positioning with increased kyphotic curvature. There is no acute fracture or subluxation identified. Severe multilevel left-sided facet arthrosis. Mild dextroscoliosis. Tracheostomy cannula in place. Inflammatory stranding within the region of the glottis and upper esophageal sphincter again noted. Extensive atherosclerosis redemonstrated. Pulmonary emphysema with interlobular septal thickening at the lung apices. IMPRESSION: 1. No acute cervical spine fracture or subluxation identified. 2. Pulmonary emphysema with interlobular septal thickening which may represent interstitial pulmonary edema. 3. Tracheostomy cannula in place with unchanged nonspecific soft tissue thickening with mild inflammatory stranding within the region of the glottis and upper esophageal sphincter. 4. No fluid collections or pathologically enlarged lymph nodes. ACT 112: Negative or not required by law. The above report was generated using voice recognition software. It may contain grammatical, syntax or spelling errors. Electronically signed by: Cristopher Tai M.D. 01/09/2025 1:[address] 01/09/25 11:10 CT SCAN OF THE BRAIN WITHOUT IV CONTRAST CLINICAL HISTORY: Fall. COMPARISON STUDY: Head CT December 02, 2024. TECHNIQUE: Unenhanced axial CT scan of the brain was performed from the vertex to the skull base. A dose lowering technique was utilized adhering to the principles of ALARA. FINDINGS: This exam is mildly compromised given difficulty positioning related to exaggerated kyphosis of the cervical spine. However, no acute intracranial hemorrhage, midline shift or mass effect is present. Ventricular system is stable. Basal cisterns are patent. There are no extra-axial collections. Scattered extraaxial calcifications are unchanged. There are no calvarial fracture. There is a tiny left scalp contusion. IMPRESSION: 1. No acute intracranial findings. 2. Tiny left scalp contusion. No femoral fractures. ACT 112: Negative or not required by law. Electronically signed by: Ren Castanon M.D. 01/09/2025 1:28 PM Chest X-Ray 01/09/25 11:13 XR chest 1V portable CLINICAL HISTORY: weak COMPARISON STUDY: 12/16/2024 FINDINGS: Stable mild cardiomegaly without pulmonary vascular congestion. Tracheostomy tube tip is stable at the thoracic inlet. There is stable mild elevation of the left hemidiaphragm. There is interval mild stranding opacity at the right lung base. No other consolidation or pleural effusion. No pneumothorax. Stable old right rib fractures. IMPRESSION: Mild atelectasis versus early pneumonia right lung base. ACT 112: Negative or not required by law. Electronically signed by: Hung Pittman M.D. 01/09/2025 11:49 AM Shoulder X-Ray 01/09/25 11:32 XR shoulder RT min 2V routine CLINICAL HISTORY: r shoulder pain COMPARISON: Chest CT of 12/16/2024 and chest x-ray of 11/12/2024 FINDINGS: There is a stable old fracture distally at the right clavicle. No acute fracture or dislocation seen. There is narrowing of the subacromial space which can be seen with chronic rotator cuff injury. No significant degenerative change otherwise. IMPRESSION: 1. No acute fracture seen. 2. Stable old fracture distally of the right clavicle. ACT 112: Negative or not required by law. Electronically signed by: Hung Pittman M.D. 01/09/2025 1:26 PM Discharge Plan Visit Data Chief Complaint: Weakness Stated Complaint: INJURY ALERT, FALL ED Provider: Dennis Olea Discharge Problem: Weakness, Fall, Pneumonia Condition: Fair Forms Stand Alone Forms: [facility] Prescriptions Prescriptions: No Action buspirone 5 mg tablet 5 mg PO BID Rx Instructions: CRUSH ALL MEDS Saline Mist 0.65 % aerosol,spray 2 spray NA DIRECTED PRN (Reason: Congestion) Breztri Aerosphere 160-9-4.8 mcg/actuation HFA aerosol inhaler 2 inh INHALATION AMHS aspirin 81 mg Tablet,Delayed Release (Dr/Ec) 81 mg PO QAM Rx Instructions: CRUSH ALL MEDS ipratropium-albuterol 0.5 mg-3 mg(2.5 mg base)/3 mL Solution For Nebulization 3 ml NEB Q2H PRN (Reason: shortness of breath or wheezing) Qty: 180 0RF sodium chloride 3 % Solution For Nebulization 3 ml INHALATION Q6H PRN (Reason: thickened secretions) 30 Days Qty: 120 0RF levothyroxine 75 mcg tablet 75 mcg PO DAILYBB Rx Instructions: CRUSH ALL MEDS clopidogrel 75 mg Tablet 75 mg PO QAM Qty: 30 0RF Rx Instructions: CRUSH ALL MEDS lidocaine 4 % Adhesive Patch,Medicated 1 patch TOPICAL DAILY PRN (Reason: Pain) Rx Instructions: ON BACK FOR 12 HR. THEN REMOVE cyanocobalamin (vitamin B-12) [Vitamin B-12] 500 mcg Tablet 500 mcg PO Q OTHER DAY acetaminophen 160 mg/5 mL (5 mL) Solution 650 mg PO Q6H PRN (Reason: pain/fever) Patient Comments: PT HAS HARD TIME SWALLOWING PILLS Rx Instructions: CRUSH ALL MEDS acetylcysteine 100 mg/mL (10 %) solution 4 ml inhalation AMHS Combivent Respimat 20-100 mcg/actuation mist 2 puff INHALATION Q6H PRN (Reason: Wheezing) Rx Instructions: WITH SPACER atorvastatin 40 mg tablet 40 mg PO HS Rx Instructions: CRUSH ALL MEDS isosorbide mononitrate 10 mg tablet 10 mg PO BID Qty: 60 0RF Rx Instructions: CRUSH ALL MEDS venlafaxine 75 mg tablet 75 mg PO TIDM Qty: 90 0RF Rx Instructions: CRUSH ALL MEDS take with food bumetanide 1 mg tablet 1 mg PO QAM Rx Instructions: CRUSH ALL MEDS metoprolol tartrate 50 mg Tablet 50 mg PO PM Qty: 30 0RF Rx Instructions: CRUSH ALL MEDS gabapentin 100 mg Capsule 100 mg PO BID Qty: 60 0RF Rx Instructions: CRUSH ALL MEDS baclofen 10 mg Tablet 2.5 mg PO BID PRN (Reason: Muscle spasm) Qty: 15 0RF Patient Comments: PRESCRIBED 10MG PO BID; PT TAKES 10MG DAILY PRN Rx Instructions: CRUSH ALL MEDS metoprolol tartrate 50 mg Tablet 75 mg PO QAM Rx Instructions: CRUSH ALL MEDS diclofenac sodium [Voltaren Arthritis Pain] 1 % gel 4 g EXT BID PRN (Reason: Apply to affected joint for joint pain) Rx Instructions: Please give tube from hospital Referrals Referrals: Paola Wilson MD [Primary Care Provider] - [facility] [Non-Staff] - Discharge Problem: Fall Qualifiers: Encounter type: initial encounter Qualified Code(s): W19.XXXA - Unspecified fall, initial encounter Pneumonia Qualifiers: Pneumonia type: due to unspecified organism Laterality: unspecified laterality Lung location: unspecified part of lung Qualified Code(s): J18.9 - Pneumonia, unspecified organism
--- NOTE | 2025-01-09 11:51 | XRay Report ---
XR chest 1V portable CLINICAL HISTORY: weak COMPARISON STUDY: 12/16/2024 FINDINGS: Stable mild cardiomegaly without pulmonary vascular congestion. Tracheostomy tube tip is st able at the thoracic inlet. There is stable mild elevation of the left hemidiaphragm. There is interv al mild stranding opacity at the right lung base. No other consolidation or pleural effusion. No pneu mothorax. Stable old right rib fractures. IMPRESSION: Mild atelectasis versus early pneumonia right lung base. ACT 112: Negative or not required by law. Electronically signed by: Hung Pittman M.D. 01/09/2025 11:49 AM
[2025-01-09 12:21] LABS: Hematocrit (blood only) 27.6 % (37.0-47.0); Hemoglobin 8.8 g/dl (12.0-16.0); Immature Granulocytes # (auto) 0.05 K/uL (0.01-0.20); Immature Granulocytes % (auto) 0.6 %; Mean Corpuscular Hemoglobin 30.1 pg (25.0-34.0); Mean Corpuscular Volume 94.5 fL (80.0-100.0); Platelet Count 361 K/uL (130-400); RDW Standard Deviation 56.5 fL (36.4-46.3); Red Blood Count 2.92 M/uL (4.20-5.40); White Blood Count 8.95 K/ul (4.8-10.8)
[2025-01-09 12:39] LABS: Alanine Aminotransferase 14.0 U/L (7-52); Albumin Globulin Ratio 1.1 (0.9-2); Albumin Level 3.7 gm/dl (3.4-5.0); Alkaline Phosphatase 74.0 U/L (34-104); Anion Gap 8.0 (3-11); Bilirubin,Total 0.3 mg/dl (0.2-1.0); Blood Urea Nitrogen 16.0 mg/dl (6-23); Calcium 9.1 mg/dl (8.6-10.3); Carbon Dioxide 31.0 mmol/L (21-32); Chloride 98.0 mmol/L (98-107); Creatinine Clr Calc Pharmacy 60.5 ml/min; Globulin 3.5 gm/dl (2.5-4.0); Glucose 86.0 mg/dl (70-99(Fasting)); Lipase 31.0 U/L (11-82); Potassium 3.6 mmol/L (3.5-5.1); Sodium 137.0 mmol/L (136-145); Total Protein 7.2 gm/dl (6.0-8.3)
[2025-01-09 12:42] LABS: Appearance Urine Clear (Clear); Bacteria Urine Automated None Seen (None Seen); Epithelial Cell Urine Auto 0-2 /hpf (0-2); Glucose Urine UA Negative (Negative); RBC Urine Automated 0-2 /hpf (0-2); WBC Urine Automated 0-5 /hpf (0-5)
--- NOTE | 2025-01-09 13:27 | XRay Report ---
XR shoulder RT min 2V routine CLINICAL HISTORY: r shoulder pain COMPARISON: Chest CT of 12/16/2024 and chest x-ray of 11/12/2024 FINDINGS: There is a stable old fracture distally at the right clavicle. No acute fracture or disloc ation seen. There is narrowing of the subacromial space which can be seen with chronic rotator cuff i njury. No significant degenerative change otherwise. IMPRESSION: 1. No acute fracture seen. 2. Stable old fracture distally of the right clavicle. ACT 112: Negative or not required by law. Electronically signed by: Hung Pittman M.D. 01/09/2025 1:26 PM
--- NOTE | 2025-01-09 13:30 | CT Scan Report ---
CT SCAN OF THE BRAIN WITHOUT IV CONTRAST CLINICAL HISTORY: Fall. COMPARISON STUDY: Head CT December 02, 2024. TECHNIQUE: Unenhanced axial CT scan of the brain was performed from the vertex to the skull base. A dose lowering technique was utilized adhering to the principles of ALARA. FINDINGS: This exam is mildly compromised given difficulty positioning related to exaggerated kyphosi s of the cervical spine. However, no acute intracranial hemorrhage, midline shift or mass effect is p resent. Ventricular system is stable. Basal cisterns are patent. There are no extra-axial collections . Scattered extraaxial calcifications are unchanged. There are no calvarial fracture. There is a tiny left scalp contusion. IMPRESSION: 1. No acute intracranial findings. 2. Tiny left scalp contusion. No femoral fractures. ACT 112: Negative or not required by law. Electronically signed by: Ren Castanon M.D. 01/09/2025 1:28 PM
[2025-01-09 13:36] LABS: Chlamydia pneumoniae PCR Not Detected (NotDetected); Coronavirus 229E PCR Not Detected (NotDetected); Coronavirus CoV-2 (COVID19)PCR Not Detected (NotDetected); Coronavirus HKU1 PCR Not Detected (NotDetected); Coronavirus NL63 PCR Not Detected (NotDetected); Coronavirus OC43PCR Not Detected (NotDetected); Human Metapneumovirus PCR Not Detected (NotDetected); Parainfluenza Virus 1 PCR Not Detected (NotDetected); Parainfluenza Virus 2 PCR Not Detected (NotDetected); Parainfluenza Virus 3 PCR Not Detected (NotDetected); Parainfluenza Virus 4 PCR Not Detected (NotDetected); Respiratory Syncytial VirusPCR Not Detected (NotDetected); Rhinovirus/Enterovirus PCR Not Detected (NotDetected)
--- NOTE | 2025-01-09 13:44 | CT Scan Report ---
CT cervical spine wo con CT DOSE: 1803.77 mGy.cm CLINICAL HISTORY: 69 years-old Female with fall. Acute neck pain status post fall COMPARISON: CT soft tissue neck 12/06/2024 TECHNIQUE: Multiple axial CT images of the cervical spine were obtained without contrast. A dose low ering technique was utilized adhering to the principles of ALARA. FINDINGS: Demineralized appearance of bones with mild to moderate multilevel degenerative changes. St udy is limited secondary to positioning with increased kyphotic curvature. There is no acute fracture or subluxation identified. Severe multilevel left-sided facet arthrosis. Mild dextroscoliosis. Trach eostomy cannula in place. Inflammatory stranding within the region of the glottis and upper esophagea l sphincter again noted. Extensive atherosclerosis redemonstrated. Pulmonary emphysema with interlobu lar septal thickening at the lung apices. IMPRESSION: 1. No acute cervical spine fracture or subluxation identified. 2. Pulmonary emphysema with interlobular septal thickening which may represent interstitial pulmonary edema. 3. Tracheostomy cannula in place with unchanged nonspecific soft tissue thickening with mild inflamma tory stranding within the region of the glottis and upper esophageal sphincter. 4. No fluid collections or pathologically enlarged lymph nodes. ACT 112: Negative or not required by law. The above report was generated using voice recognition software. It may contain grammatical, syntax o r spelling errors. Electronically signed by: Cristopher Tai M.D. 01/09/2025 1:41 PM
[2025-01-09] MEDS ORDERED: VANCOMYCIN HCL 750 MG in SODIUM CHLORIDE 0.9% 500 ML IV ONE (13:58)
[2025-01-09] MEDS ORDERED: VANCOMYCIN CONSULT ACTIVE PRN (13:58)
--- NOTE | 2025-01-09 14:57 | History & Physical Report ---
"Date of Service January 09, 2025 Assessment & Plan (1) Chronic hypercapnia: (2) Pneumonia: (3) Anemia: (4) Weakness: (5) CAD (coronary artery disease): Plan Vicki is a 69 y/o female with history of CAD s/p PCI, HTN, COPD, laryngeal cancer s/p tracheostomy with chronic respiratory failure on 4 L trach collar, hypothyroidism, PAD with right subclavian artery stenosis and EZIO, here with generalized weakness and fall from seated position. Initial workup without fracture from fall but CXR showing early PNA. CBC also showing worsening anemia. Admit for Hgb monitoring, abx and PT/OT #Concern for PNA | Chronic respiratory failure - increased secretions and weakness over the last few days at home. Had CXR at PCP that family reports was clear. Baseline O2 needs 2L. Biofire negative, no leukocytosis. Given Cefepime and Vanco in the ED. Given hx Stenotrophomonas - will switch to Bactrim. Broaden coverage if worsening or new culture data. Sputum culture pending Continue acetylcystine nebs, Breztri (or formulary equivalent). BID hypertonic saline nebs, prn duonebs Procal pending #Anemia | hx of GI bleed - found to be iron deficient on prior admission. Has noticed darker stools but recently started on PO iron supplementation. BUN/Cr improved from prior. Has received venofer 12/13 & 12/17. Hgb is 8.8 which is lower than her baseline. Check FOBT Okay for clear liquids until FOBT negative or hgb increasing PPI IV #Weakness- multifactorial with chronic deconditioning, early PNA, and anemia- 10 inpatient stays since August. Patient has refused going to rehab multiple times. Workup for other concerns as above. Pt has been using PO boost at home TID, will continue. PT/OT #CAD s/p PCI Hold ASA and plavix- resume in AM if HGB improving Continue statin #Hypertension - daughter report episode of hypotension at home, worse with repositioning Check orthostatic VS Hold Imdur. Continue Metoprolol #mental health - continue buspar, venlafaxine Dispo: Admit to PCU given trach DVT proh: defer chemical with possible GI bleed family updated at bedside 01/09 History of Present Illness Chief Complaint: weakness Primary Care Provider: Paola Wilson MD Vicki is a 69 y/o female with history of CAD s/p PCI, HTN, COPD, laryngeal cancer s/p tracheostomy with chronic respiratory failure on 4 L trach collar, hypothyroidism, PAD with right subclavian artery stenosis and EZIO, here with generalized weakness. She bent down while trying to pick something off the floor while sitting on the couch and tumbled over and was unable to get back up. hist ory is provided by patient and her caregiver. Reports that over the last few days patient has been getting weaker. Denies fevers at home, did have chills yesterday. Patient states that she takes her temperature every day. Overall her appetite has been good, eating much more than normal. Reports drinking boost 3 times a day. She has noticed increase in her secretions over the last few days. Family reports that they saw their PCP recently as a hospital follow- up had a chest x-ray and labs done and was told everything was okay. Daughter reports that she did not give her her blood pressure medications yesterday because her blood pressure was low and was worried about her blood pressure bottoming out. No recent medication changes. Patient wishes to be a full code. Allergies Allergy/AdvReac Type Severity Reaction Status Date / Time bee venom protein (honey bee) Allergy Severe Anaphylaxis Verified 01/09/25 15:11 latex Allergy Intermediate Rash Verified 01/09/25 15:11 oxycodone [From Percocet] Allergy Intermediate PER Verified 01/09/25 15:11 GMG--GETS LOOPY. Home Medications Medication Instructions Recorded Confirmed Type buspirone 5 mg tablet 5 mg PO BID 10/31/19 01/09/25 History aspirin 81 mg tablet,delayed 81 mg PO QAM 01/23/21 01/09/25 History release sodium chloride 0.65 % nasal spray 2 spray NA DIRECTED PRN 03/24/21 01/09/25 History aerosol (Saline Mist) Congestion budesonide 160 mcg-glycopyr 9 2 inh inhalation [facility] 12/17/22 01/09/25 History mcg-formot 4.8 mcg/actuation HFA inhaler (Breztri Aerosphere) levothyroxine 75 mcg tablet 75 mcg PO DAILYBB 07/12/24 01/09/25 History clopidogrel 75 mg tablet 75 mg PO QAM #30 tabs 07/14/24 01/09/25 Rx acetaminophen 160 mg/5 mL (5 mL) 650 mg PO Q6H PRN pain/fever 10/13/24 01/09/25 History oral solution cyanocobalamin (vitamin B-12) 500 500 mcg PO Q OTHER DAY 10/13/24 01/09/25 History mcg tablet (Vitamin B-12) lidocaine 4 % topical patch 1 patch topical DAILY PRN Pain 10/13/24 01/09/25 History ipratropium 0.5 mg-albuterol 3 mg 3 ml NEB Q2H PRN shortness of 10/22/24 01/09/25 Rx (2.5 mg base)/3 mL nebulization breath or wheezing #180 mL soln sodium chloride 3 % for 3 ml inhalation Q6H PRN thickened 10/22/24 01/09/25 Rx nebulization secretions 30 days #120 mL acetylcysteine 100 mg/mL (10 %) 4 ml inhalation AMHS 11/12/24 01/09/25 History solution atorvastatin 40 mg tablet 40 mg PO HS 11/12/24 01/09/25 History ipratropium 20 mcg-albuterol 100 2 puff inhalation Q6H PRN Wheezing 11/12/24 01/09/25 History mcg/actuation mist for inhalation (Combivent Respimat) isosorbide mononitrate 10 mg tablet 10 mg PO BID #60 tabs 11/17/24 01/09/25 Rx venlafaxine 75 mg tablet 75 mg PO TIDM #90 tabs 11/17/24 01/09/25 Rx bumetanide 1 mg tablet 1 mg PO QAM 12/01/24 01/09/25 History metoprolol tartrate 50 mg tablet 50 mg PO PM #30 tabs 12/04/24 01/09/25 Rx baclofen 10 mg tablet 2.5 mg (1/4 x 10 mg) PO BID PRN 12/13/24 01/09/25 Rx Muscle spasm #15 tabs gabapentin 100 mg capsule 100 mg PO BID #60 caps 12/13/24 01/09/25 Rx diclofenac sodium 1 % topical gel 4 g EXT BID PRN Apply to affected 01/09/25 01/09/25 History (Voltaren Arthritis Pain) joint for joint pain metoprolol tartrate 50 mg tablet 75 mg PO QAM 01/09/25 01/09/25 History Past Med/Surg History Problem List (Updated 01/09/25 @ 16:22 by Dennis Olea DO) Pneumonia (Acute) Fall (Acute) Weakness (Acute) Weakness Anemia Acute hyponatremia (Acute) Difficulty performing activity of daily living (ADL) (Acute) Acute thoracic back pain (Acute) Chronic hypercapnia (Acute) Acute exacerbation of chronic obstructive pulmonary disease (Acute) Generalized muscle weakness (Acute) Chronic hypercapnia Tracheobronchitis (Acute) Thrush Diuretic-induced hypokalemia Sinus tachycardia ASCVD (arteriosclerotic cardiovascular disease) Chest pain, rule out acute myocardial infarction Hypertension (Chronic) Hypothyroidism (Chronic) CAD (coronary artery disease) (Chronic) Peripheral arterial disease (Chronic) Subclavian artery stenosis, right (Chronic) Carotid stenosis (Chronic) Hyponatremia (Chronic) Medical History Cecal ulcer GI bleed Tracheostomy dependent Pneumonia Encounter for pre-operative examination Chronic hypoxic respiratory failure, on home oxygen therapy CAD (coronary artery disease) 2007 - LAD stent 2016 - LITTLE to mid LAD CHF (congestive heart failure) Labile hypertension Acute kidney injury superimposed on CKD 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 MONTENEGRO 2016 - ABN STRESS TEST - [facility] - NO STENTS/ANGIOPLASTY History of tonsillectomy and adenoidectomy Family History Daughter Family history of reaction to anesthesia SLOW TO WAKE Father Family hx of colon cancer Other Colon cancer No pertinent family history Social History Smoking Status: Former smoker Tobacco Type: Cigarettes Cigarettes Per Day: 1-2; Second Hand Exposure: No; Do You Dip or Chew Tobacco: No; Tobacco Cessation Education Requested by Patient: No Hx Alcohol Use: No Hx Substance Use: No Preferred Language: Bulgarian Communication Ability: Effective Seismic Computer Required: No Beliefs That Will Affect Care: None marital status: Current Living Situation: Alone Current Living Situation Comment: norma visits daily current occupational status: retired Other Information That Helps Us Care for You: No Feels Safe at Home: Yes Safety Concerns: Feels Safe At This Time Assistive Devices: Other Assistive Devices Comment: trach collar Review of Systems Review of Systems: All systems reviewed & are unremarkable except as noted in Subjective Physical Exam Physical Exam: General: NAD, VS as above Resp: normal respiratory effort, Tracheostomy in place, coarse lung sounds throughout with expiratory wheezing in the bases on 2 L which is her baseline CV: RRR, no murmur, Abd: normal bowel sounds, non tender, soft Extremities: Moves all extremities, no edema. lesions to bilateral knees covered with bandage Neuro: A&O x3, Skin: intact, no lesions noted Results & Data Results & Data Vital Signs (Past 12 Hours) Vital Signs Temp Pulse Pulse Resp BP BP Pulse Ox 01/09/25 14:00 75 15 152/58 H 100 01/09/25 13:00 77 24 125/60 98 01/09/25 12:00 70 16 103/68 96 01/09/25 11:41 72 20 97 01/09/25 11:33 100 01/09/25 11:20 98.6 F 72 20 127/38 L 100 01/09/25 11:20 66 01/09/25 11:10 98.6 F 72 20 127/38 L 100 O2 Del Method O2 Flow Rate 01/09/25 14:00 Trach Collar 3 01/09/25 13:00 Trach Collar 3 01/09/25 12:00 Trach Collar 3 01/09/25 11:41 Trach Collar 3 01/09/25 11:33 Non-rebreather, Trach Collar 10 01/09/25 11:20 Other 10 01/09/25 11:20 01/09/25 11:10 Nasal Cannula 10 Laboratory Results CBC, chemistry, lipase, BioFire reviewed UA reviewed Diagnostic Findings shoulder xray reviewed cxr reviewed head CT and cspine CT reeviewed Supervising Physician Co-Signing Physician Notes I personally saw and examined the patient. I independently reviewed the labs, EKG, imaging, problem list, medication list, past medical history and family history. 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 Hold off treatment for pneumonia unless procalcitonin elevated, clinically worsening or febrile. PT/OT PG Care Time/CCT Total # of Minutes Spent Total Time Spent with Patient: Total time spent is greater than 50% in coordination of care (as documented) at patient's floor/unit and/or counseling patient: Coding Level of Care Code 22610 INT INP/OBS CARE 75MIN Diagnoses Chronic hypercapnia R06.89 Pneumonia J18.1 Laterality: left Lung location: lower lobe of lung Pneumonia type: due to unspecified organism Anemia D64.9 Weakness R53.1 CAD (coronary artery disease) I25.10 (2) Pneumonia Laterality: left Lung location: lower lobe of lung Pneumonia type: due to u nspecified organism Qualified Code(s): J18.1 - Lobar pneumonia, unspecified organism"
[2025-01-09] MEDS: VANCOMYCIN HCL 750 MG in SODIUM CHLORIDE 0.9% 250 ML IV ONE (15:05)
[2025-01-09] MEDS: CEFEPIME 2000MG 2,000 MG/20 ML SYR IV STA (15:05)
[2025-01-09] MEDS: VENLAFAXINE HCL 37.5 MG TAB PO ONE (16:59)
[2025-01-09] MEDS: PANTOprazole 40 MG/10 ML SYR IV STA (16:59)
[2025-01-09] MEDS: ALBUT/IPRATROP 3MG/0.5MG NEB 3 ML VIAL NEB STA (17:53)
[2025-01-09] MEDS: ACETAMINOPHEN SUSP 160 MG/5 ML BTL PO STA (17:57)
[2025-01-09] MEDS ORDERED: SODIUM CHLORIDE 0.65% NA SOLN 45 ML (OCEAN) PRN (18:42)
[2025-01-09] MEDS ORDERED: BACLOFEN 10 MG TAB PO PRN (18:42)
[2025-01-09] MEDS ORDERED: SULFAMETHOXAZOLE/TRIMETHOPRIM 200MG/40MG/5ML SUSP PO SCH (18:42)
[2025-01-09] MEDS ORDERED: MELATONIN 3 MG TAB PO PRN (18:42)
[2025-01-09] MEDS ORDERED: ONDANSETRON INJ 2 MG/ML 2 ML VIAL IV PRN (18:42)
[2025-01-09] MEDS ORDERED: IPRATROPIUM BROMIDE/ALBUTEROL respimat INH INH PRN (18:42)
[2025-01-09] MEDS ORDERED: POLYETHYLENE (MIRALAX) 17 GM PACK PO PRN (18:42)
[2025-01-09] MEDS ORDERED: LIDOCAINE 5% 1 PATCH TD PRN (19:00)
[2025-01-09] MEDS ORDERED: REMOVE LIDODERM PATCH PRN (19:01)
[2025-01-09] MEDS ORDERED: ALBUTEROL HFA 8 GM INHALER INH PRN (19:05)
[2025-01-09] MEDS ORDERED: IPRATROPIUM BROMIDE HFA INHALER INH PRN (19:05)
[2025-01-09] MEDS: ACETYLCYSTEINE 10% INHAL SOLN 4 ML **DISPENSED BY RESP. INH SCH (19:36)
[2025-01-09] MEDS: ALBUT/IPRATROP 3MG/0.5MG NEB 3 ML VIAL NEB PRN (19:36)
[2025-01-09] MEDS: IRON SUCROSE 300 MG in SODIUM CHLORIDE 0.9% 250 ML IV ONE (19:54)
[2025-01-09] MEDS: VENLAFAXINE HCL 37.5 MG TAB PO SCH (19:54)
[2025-01-09] MEDS: GABAPENTIN 100 MG CAP PO SCH (19:55)
[2025-01-09] MEDS: ATORVASTATIN 40 MG TAB PO SCH (19:55)
[2025-01-09] MEDS: METOPROLOL TARTRATE 50 MG TAB PO SCH (19:55)
[2025-01-09] MEDS: busPIRone 5 MG TAB PO SCH (19:55)
[2025-01-09 20:14] LABS: Hematocrit (blood only) 26.2 % (37.0-47.0); Hemoglobin 8.3 g/dl (12.0-16.0); Immature Granulocytes # (auto) 0.03 K/uL (0.01-0.20); Immature Granulocytes % (auto) 0.4 %; Mean Corpuscular Hemoglobin 30.2 pg (25.0-34.0); Mean Corpuscular Volume 95.3 fL (80.0-100.0); Platelet Count 341 K/uL (130-400); RDW Standard Deviation 56.2 fL (36.4-46.3); Red Blood Count 2.75 M/uL (4.20-5.40); White Blood Count 7.51 K/ul (4.8-10.8)
[2025-01-09] MEDS: SULFAMETHOXAZOLE/TRIMETHOPRIM 200MG/40MG/5ML SUSP PO SCH (20:58)
[2025-01-09] MEDS ORDERED: NON-FORMULARY MEDICATION (Budesonide-Glycopyr-Formoterol [Breztri Aerosphere] 160-9-4.8 mc INH SCH (21:00)
[2025-01-10] MEDS: PROCHLORPERAZINE 5 MG in SYRINGE 4 ML IV ONE (00:05)
[2025-01-10] MEDS: ACETAMINOPHEN 1,000 MG/100 ML VIAL IV STA (00:05)
[2025-01-10] MEDS: LORazepam Inj 0.5 MG in SYRINGE 0.25 ML IV STA (01:59)
[2025-01-10] MEDS: LEVOTHYROXINE SODIUM 75 MCG TABLET PO SCH (06:32)
[2025-01-10 07:13] LABS: Hematocrit (blood only) 26.2 % (37.0-47.0); Hemoglobin 8.5 g/dl (12.0-16.0); Mean Corpuscular Hemoglobin 30.7 pg (25.0-34.0); Mean Corpuscular Volume 94.6 fL (80.0-100.0); Platelet Count 333 K/uL (130-400); RDW Standard Deviation 56.5 fL (36.4-46.3); Red Blood Count 2.77 M/uL (4.20-5.40); White Blood Count 14.00 K/ul (4.8-10.8)
[2025-01-10 07:40] LABS: Anion Gap 8.0 (3-11); Calcium 8.6 mg/dl (8.6-10.3); Carbon Dioxide 27.0 mmol/L (21-32); Chloride 102.0 mmol/L (98-107); Potassium 3.4 mmol/L (3.5-5.1); Sodium 137.0 mmol/L (136-145)
[2025-01-10 07:46] LABS: Blood Urea Nitrogen 16.0 mg/dl (6-23); Creatinine Clr Calc Pharmacy 49.1 ml/min; Glucose 101.0 mg/dl (70-99(Fasting))
[2025-01-10] MEDS: METOPROLOL TARTRATE 25 MG TAB PO SCH (08:47)
[2025-01-10] MEDS: BUMETANIDE 1 MG TAB PO SCH (08:48)
[2025-01-10] MEDS: PANTOprazole 40 MG/10 ML SYR IV SCH (08:49)
[2025-01-10] MEDS: UMECLIDINIUM/VILANTEROL 62.5/25MCG 7 PUFFS/INHALER INH SCH (08:49)
[2025-01-10] MEDS: FLUTICASONE FUROATE 200MCG 14 PUFFS/INHALER INH SCH (08:50)
[2025-01-10] MEDS: ACETAMINOPHEN SUSP 325 MG/10.15 ML UDC PO PRN (11:54)
[2025-01-10] MEDS ORDERED: LORazepam 1 MG/1 ML SYR ED Inj Use IV STA (13:57)
[2025-01-10] MEDS: MAGNESIUM SULFATE / D5W 1 GM/100 ML BAG IV ONE (14:39)
[2025-01-10] MEDS: LORazepam Inj 0.25 MG in SYRINGE 0.125 ML IV STA (14:39)
[2025-01-10] MEDS: GABAPENTIN 250 MG/5 ML 470 ML BTL PO SCH (14:39)
--- NOTE | 2025-01-10 17:37 | Hospitalist Progress Note ---
"Date of Service January 10, 2025 Assessment & Plan (1) Facial droop: (2) Chronic hypercapnia: (3) Pneumonia: (4) Anemia: (5) Weakness: (6) CAD (coronary artery disease): Plan iVcki is a 69 y/o female with history of CAD s/p PCI, HTN, COPD, laryngeal cancer s/p tracheostomy with chronic respiratory failure on 4 L trach collar, hypothyroidism, PAD with right subclavian artery stenosis and EZIO, here with generalized weakness and fall from seated position. Initial workup without fracture from fall but CXR showing early PNA. CBC also showing worsening anemia. Admit for Hgb monitoring, abx and PT/OT #Facial Droop - concern for stroke, abrupt onset 01/10 1700 with left sided facial droop, eye droop, inability to write and changes to vision. Stroke alert Called CT head - no acute findings. CTA head and neck ordered discussed with Dr. Ponce - [place] [facility] - concern for acute ischemic stroke but also possible cervical spinal cord contusion from her fall. Given hx of GI bleed and improving symptoms TNK was deferred. recommended the following: Head and neck CTA, repeat C-spine CT. Maintain Map 90-100. Head of bed elevated at 30, bedrest. Resume plavix now and in AM, okay to continue to hold aspirin. overnight monitoring in ICU AM lipids and A1c hold metoprolol - low dose fluids to try to increase MAPs. imdur is already held #Concern for PNA | Chronic respiratory failure - increased secretions and weak ness over the last few days at home. Had CXR at PCP that family reports was clear. Baseline O2 needs 2L. Biofire negative, no leukocytosis, procal negative on admssion. Given Cefepime and Vanco in the ED. Given hx Stenotrophomonas - will switch to Bactrim. Broaden coverage if worsening or new culture data. Sputum culture moderate normal major, preliminary Continue acetylcystine nebs, Breztri (or formulary equivalent). BID hypertonic saline nebs, prn duonebs Did have rising leukocytosis 14 - without worsening in respiratory symptoms or increase O2 demands. Will continue on bactrim and trend CBC. #Anemia | hx of GI bleed - found to be iron deficient on prior admission. Has noticed darker stools but recently started on PO iron supplementation. BUN/Cr improved from prior. Has received venofer 12/13 & 12/17. Hgb is 8.8 which is lower than her baseline. Check FOBT no BM - will increase to full liquids so patient can have nutritional supplements. PPI IV #Weakness- multifactorial with chronic deconditioning, early PNA, and anemia- 10 inpatient stays since August. Patient has refused going to rehab multiple times. Workup for other concerns as above. Pt has been using PO boost at home TID, will continue. PT/OT - rec rehab #CAD s/p PCI resume plavix as above. aspirin held. Continue statin #Hypertension - daughter report episode of hypotension at home, worse with repositioning will need to check orthostatic VS when no longer permissive HTN and meds restarted metoprolol and imdur held #mental health - continue buspar, venlafaxine Dispo: PCU status in ICU DVT proh: defer chemical with possible GI bleed family updated at bedside 01/09 & 01/10 Admission and Anticipated Discharge Date Admission Date: January 09, 2025 Supervising Physician Co-Signing Physician Notes PA Supervision Note: I did not personally see or examine the patient today, but I verified all solitario points of MISA Moncada's assessment and plan with the following exceptions/additions: None Subjective Patient seen earlier this afternoon after being notified by RN that patient was having worsening neck pain and numbness and tingling. Review of MAR and patient had not taken either dose of her gabapentin since she has been here. Vicki reports that she does not take the gabapentin at home. Confirmed with floridalma who manages her medications and dose report that she gets this at home, that it is the only thing that helps her be able to ambulate around the house. Patient was able to speak some words during my intial interview and was able to communicated by writing on paper during my exam. She was agreeable to gabapentin in liquid form and requesting IV pain medications Notified by RN at 1700 that daughter (primary career representative) came out to the nursing station reporting one sided facial droop and eye droop. Patient also had acute change in ability to write. Stroke alert was called. Physical Exam Physical Exam: Prior to stroke alert - around ~1400 General: NAD, VS as above, appears uncomofrtable Back: no spinal tenderness, + paraspinal tenderness and pain over the scapula Resp: normal respiratory effort, Tracheostomy in place, CV: RRR, no murmur, Abd: normal bowel sounds, non tender, soft Extremities: Moves all extremities, no edema. lesions to bilateral knees covered with bandage Neuro: A&O x3, Results & Data Results & Data Vital Signs (Past 12 Hours) Vital Signs Temp Pulse Pulse Resp BP Pulse Ox O2 Del Method 01/10/25 16:28 98.1 F 89 24 138/67 100 Trach Collar 01/10/25 10:48 77 20 98 Trach Collar 01/10/25 10:35 98.1 F 87 24 152/66 H 98 Trach Collar 01/10/25 08:00 104 H 01/10/25 08:00 Trach Collar 01/10/25 07:47 98.2 F 103 H 24 143/54 H 94 Trach Collar 01/10/25 06:05 18 93 Trach Collar 01/10/25 05:57 72 O2 Flow Rate FiO2 01/10/25 16:28 9 01/10/25 10:48 6 28 01/10/25 10:35 7 01/10/25 08:00 01/10/25 08:00 7 01/10/25 07:47 7 01/10/25 06:05 7 28 01/10/25 05:57 Laboratory Results cbc and chemistry reviewed Diagnostic Findings head CT reviewed PG Care Time/CCT Total # of Minutes Spent Total Time Spent with Patient: Total time spent is greater than 50% in coordination of care (as documented) at patient's floor/unit and/or counseling patient: Coding Level of Care Code None Diagnoses Facial droop R29.810 Chronic hypercapnia R06.89 Pneumonia J18.1 Laterality: left Lung location: lower lobe of lung Pneumonia type: due to unspecified organism Anemia D64.9 Weakness R53.1 CAD (coronary artery disease) I25.10 (3) Pneumonia Laterality: left Lung location: lower lobe of lung Pneumonia type: due to unspecified organism Qualified Code(s): J18.1 - Lobar pneumonia, unspecified organism"
--- NOTE | 2025-01-10 17:47 | CT Scan Report ---
CT head without contrast History: Neurodeficit Comparison: 12/02/2024 Technique: Using multidetector thin collimation helical acquisition technique, axial, coronal and sagittal CT images from the skull base to the vertex were obtained without intravenous contrast. Dose reduction techniques were achieved by using automatic exposure control and/or adjustment of mA and/or kV according to patient size and/or use of iterative reconstruction technique. Findings: No intracranial hemorrhage, mass-effect, or midline shift. The ventricles are proportionate to the cerebral sulci. The leigh to white matter differentiation of the cerebral hemispheres is preserved. The basal cisterns are patent. Moderate cerebral atrophy. The visualized paranasal sinuses are clear. Mastoid air cells are clear. Impression: No acute intracranial pathology. Electronically signed by Yrn Tran 01-10-2025 5:35 PM
[2025-01-10] MEDS ORDERED: PHARMACIST DISCHARGE MED REC CONSULT PRN ×2 (19:01→22:17)
[2025-01-10] MEDS: OPTIRAY 320 125ml IV ONE (20:03)
--- NOTE | 2025-01-10 20:13 | Billing Data ---
Date of Service January 10, 2025 Coding Level of Care Code 58428 CRITICAL CARE 1ST 30-74M Time Spent (min) 120 Comment 120 minutes of CC time in relation to stroke alert, life or limb situation
[2025-01-10] MEDS: SODIUM CHLORIDE 0.9% 1,000 ML IV SCH (20:17)
[2025-01-10] MEDS: CLOPIDOGREL BISULFATE 75 MG TAB PO ONE (20:18)
--- NOTE | 2025-01-10 21:44 | CT Scan Report ---
Exam(s): CT C SPINE EXAM: CT Cervical Spine Without Intravenous Contrast CLINICAL HISTORY: r/o cord contusion. TECHNIQUE: Axial computed tomography images of the cervical spine without intravenous contrast. CTDI is 59.16 mGy and DLP is 681.78 mGy-cm. Automated exposure control was utilized for the study. A dose lowering technique was utilized adhering to the principles of ALARA. COMPARISON: 01/09/2025 FINDINGS: Vertebrae: No acute fracture. Maintenance of height of the vertebral bodies. Unchanged 1.9 mm anterior subluxation of C3 on C4. Mild reversal of the normal cervical lordosis. Discs/spinal canal/neural foramina: Unchanged mild degenerative changes greatest from C3-4 through C5-6. Soft tissues: Prevertebral soft tissues are unremarkable. Atherosclerotic vascular calcifications. Redemonstrated tracheostomy tube. IMPRESSION: No acute post-traumatic abnormality. No significant change. CT can not assess for cord contusion. Recommend MRI of the cervical spine with contrast when clinically appropriate. Electronically signed by: Bonifacio Perez M.D. 01/10/25 21:43 PM
--- NOTE | 2025-01-10 21:58 | CT Scan Report ---
Exam(s): CTA HEAD With Contrast IV Amt: 115 ml optiray 320 EXAM: CT Angiography Head With Intravenous Contrast CLINICAL HISTORY: stroke r/o. TECHNIQUE: Axial computed tomographic angiography images of the head with intravenous contrast. CTDI is 59.16 mGy and DLP is 681.78 mGy-cm. Automated exposure control was utilized for the study. A dose lowering technique was utilized adhering to the principles of ALARA. 3D and MIP reconstructed images were created and reviewed. CONTRAST: Patient received 115 ml optiray 320 of IV contrast COMPARISON: CT Brain 01-10-2025. FINDINGS: Right internal carotid artery: Mild calcified plaque at the cavernous internal carotid artery with intact distal runoff. No aneurysm. Right anterior cerebral artery: Unremarkable. No occlusion or significant stenosis. No aneurysm. Right middle cerebral artery: Calcification within the sylvian fissure adjacent to and possibly involving a trifurcation branch although no immediately adjacent thrombosed vessel is identified. 1.8 mm diameter possible saccular aneurysm of the right middle cerebral artery trifurcation versus thrombosis of a proximal M2 branch of the right middle cerebral artery (coronal series 701 [employer] maintenance [employer] 42, axial series 7 image 114 and sagittal series 702 image 30). No aneurysm. Right posterior cerebral artery: Unremarkable. No occlusion or significant stenosis. No aneurysm. Right vertebral artery: Severely hypoplastic. Left internal carotid artery: Mild calcified plaque at the cavernous internal carotid artery with intact distal runoff. No aneurysm. Left anterior cerebral artery: Unremarkable. No occlusion or significant stenosis. No aneurysm. Left middle cerebral artery: Unremarkable. No occlusion or significant stenosis. No aneurysm. Left posterior cerebral artery: Unremarkable. No occlusion or significant stenosis. No aneurysm. Left vertebral artery: Mild calcified plaque with intact distal runoff. Basilar artery: Unremarkable. No occlusion or significant stenosis. No aneurysm. 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 Recommend correlation to clinical symptoms. Communications: Call Doctor Above results Electronically signed by: Bonifacio Perez M.D. 01/10/25 21:57 PM
--- NOTE | 2025-01-10 22:10 | CT Scan Report ---
Exam(s): CTA NECK With Contrast IV Amt: 115 ml optiray 320 EXAM: CT Angiography Neck With Intravenous Contrast CLINICAL HISTORY: stroke r/o. TECHNIQUE: Routine carotid CT angiography protocol was performed with intravenous contrast. NASCET criteria using the distal ICAs for comparison were used for evaluation of stenoses. CTDI is 59.16 mGy and DLP is 681.78 mGy-cm. Automated exposure control was utilized for the study. A dose lowering technique was utilized adhering to the principles of ALARA. 3D and MIP reconstructed images were created and reviewed. CONTRAST: Patient received 115 ml optiray 320 of IV contrast COMPARISON: CT Cervical Spine 01-10-2025 FINDINGS: Examination limited by patient positioning. VASCULATURE: Right common carotid artery: Diffuse calcified plaque. No dissection. Right internal carotid artery: Severe stenosis with densely calcified plaque of likely greater than 90%, hemodynamically significant. Severe stenosis just beyond the carotid bulb. Diffuse calcified plaque with intact distal runoff. No dissection. Right external carotid artery: Atherosclerotic plaque. No occlusion. Right vertebral artery: Diffusely hypoplastic. No dissection. Left common carotid artery: Diffuse calcified plaque. No dissection. Left internal carotid artery: Moderate calcified plaque at the carotid bulb without a hemodynamically significant stenosis. Diffuse calcified plaque with intact distal runoff. No dissection. Left external carotid artery: Atherosclerotic plaque. No occlusion. Left vertebral artery: Diffuse calcified plaque with intact distal runoff. No dissection. Aortic Arch: Diffuse atherosclerotic plaque involving the visualized aortic arch and proximal great vessels including the brachiocephalic and bilateral subclavian arteries. NECK: Bones/joints: Degenerative changes of the spine. No acute fracture. Soft tissues: Unremarkable. Lung apices: Tracheostomy tube tip to the thoracic inlet. Diffuse interstitial prominence with septal thickening. CAROTID STENOSIS REFERENCE USING NASCET CRITERIA: % ICA stenosis = (1 - narrowest ICA diameter/diameter of distal cervical ICA) x 100. Mild - <50% stenosis. Moderate - 50-69% stenosis. Severe - 70-94% stenosis. Near occlusion - 95-99% stenosis. Occluded - 100% stenosis. IMPRESSION: Extensive vascular plaque most severe of the right carotid bulb with a likely greater than 90% hemodynamically significant stenosis. Electronically signed by: Bonifacio Perez M.D. 01/10/25 22:10 PM
[2025-01-10] MEDS: DICLOFENAC SOD 1% GEL 100 GM TUBE EXT PRN (23:55)
--- NOTE | 2025-01-11 01:17 | Communication Note ---
Date of Service: January 11, 2025 Due to MRI incompatibility of indwelling trach, exchanged for MRI compatible cuffed 6.0 Shiley without incident. Inner cannula in place. Cuff left deflated. Patient requests her uncuffed trach be replaced when back from MRI. Attempted to call daughter, Rhona, x2 per patient request without success. Voice message left to call back. Anxiolytic provided. Primary team aware. Addendum 0125: Patient removed her own inner cannula, does not want it replaced as "it doesn't work". Resting comfortably in bed. TC in place. RN aware. Coding Level of Care Code None
[2025-01-11] MEDS: LORazepam Inj 0.5 MG in SYRINGE 0.25 ML IV STA (01:28)
--- NOTE | 2025-01-11 03:33 | Magnetic Resonance Report ---
EXAM: MR brain wo con CLINICAL HISTORY: CVA TECHNIQUE: Multisequential and multiplanar images of the brain were reviewed without contrast. COMPARISON: None, No prior MRI study. FINDINGS: Generalized parenchymal atrophy is appreciated. Scattered foci of increased T2/FLAIR signal abnormality are identified within the bilateral periventricular and subcortical white matter, which are most commonly associated with chronic small vessel ischemic disease. There is a chronic lacunar infarct in the body of the right caudate nucleus. No focal parenchymal lesions are seen. No intracranial hemorrhage, mass effect, midline shift, extra-axial collection, or hydrocephalus is identified. The ventricles, sulci, and basal cisterns are symmetric and normal in size and configuration. Diffusion-weighted sequences show no evidence of acute ischemic infarction. The midline structures, including the pituitary gland, corpus callosum, pineal region, and brainstem, are unremarkable. The craniovertebral junction is within normal limits. No calvarial abnormalities are identified. The paranasal sinuses and mastoid air cells are clear. Orbital structures are unremarkable. Appropriate flow voids are present in the visualized intracranial vessels. IMPRESSION: 1. No acute ischemia, space-occupying mass, or other acute intracranial pathology is demonstrated. 2. Chronic small vessel ischemic disease. 3. Diffuse cerebral atrophy. 4. Chronic lacunar infarct in the body of the right caudate nucleus. Electronically signed by Hunter Garcia 01-11-2025 03:33 AM
--- NOTE | 2025-01-11 03:37 | Magnetic Resonance Report ---
EXAM: MR angio head wo con CLINICAL HISTORY: CVA TECHNIQUE: 3-D [id number] imaging of the intracranial circulation was performed without intravenous contrast. COMPARISON: None. FINDINGS: Suboptimal evaluation is possible due to motion artifact. There is good opacification of the distal portions of the internal carotid arteries, which appear widely patent. There is good opacification of the anterior and middle cerebral artery distributions bilaterally. There is no MRA evidence of intracranial aneurysm or stenosis within the resolution limits of the study. Limited evaluation of the posterior circulation demonstrates patency of the distal vertebral arteries and the basilar artery, with visualization of the posterior cerebral arteries bilaterally. IMPRESSION: Essentially unremarkable intracranial MR angiogram. Electronically signed by Hunter Garcia 01-11-2025 03:36 AM
[2025-01-11 05:06] LABS: Hematocrit (blood only) 22.5 % (37.0-47.0); Hemoglobin 7.5 g/dl (12.0-16.0); Immature Granulocytes # (auto) 0.03 K/uL (0.01-0.20); Immature Granulocytes % (auto) 0.4 %; Mean Corpuscular Hemoglobin 30.7 pg (25.0-34.0); Mean Corpuscular Volume 92.2 fL (80.0-100.0); Platelet Count 267 K/uL (130-400); RDW Standard Deviation 58.2 fL (36.4-46.3); Red Blood Count 2.44 M/uL (4.20-5.40); White Blood Count 7.83 K/ul (4.8-10.8)
[2025-01-11 05:21] LABS: Anion Gap 8.0 (3-11); Blood Urea Nitrogen 16.0 mg/dl (6-23); Calcium 8.4 mg/dl (8.6-10.3); Carbon Dioxide 26.0 mmol/L (21-32); Chloride 101.0 mmol/L (98-107); Cholesterol 98.0 mg/dl (0-200); Creatinine Clr Calc Pharmacy 44.6 ml/min; Glucose 85.0 mg/dl (70-99(Fasting)); HDL Cholesterol 42.0 mg/dl; Potassium 3.2 mmol/L (3.5-5.1); Sodium 135.0 mmol/L (136-145); Triglycerides 75.0 mg/dl (0-150)
[2025-01-11 05:32] LABS: Ovalocytes 1+
[2025-01-11 07:08] LABS: Hemoglobin A1C 5.3 % (4.5-5.6)
[2025-01-11 08:02] VITALS: TEMP 97.5
[2025-01-11] MEDS: CYANOCOBALAMIN (B-12) 500 MCG TABLET PO SCH (08:04)
[2025-01-11] MEDS: CLOPIDOGREL BISULFATE 75 MG TAB PO SCH (08:04)
[2025-01-11] MEDS: POTASSIUM CHLORIDE 20 MEQ/15 ML UDC PO STA (09:18)
--- NOTE | 2025-01-11 11:22 | Neurology Consultation ---
Date of Consultation January 11, 2025 Assessment & Plan (1) Carotid stenosis: (2) TIA (transient ischemic attack): (3) Weakness: (4) Pneumonia: Plan This patient had a relatively brief episode (minutes) of left facial droop, decreased speech and illegible handwriting January 10 all of which resolved shortly. She is back at her baseline today with no focal neurologic deficits. This event is consistent with a TIA involving the right hemisphere. The patient has significant proximal right carotid (95%) as well as other vascular stenoses (left internal carotid artery, left vertebral, right vertebral, left subclavian and left axillary arteries). In addition there is an occlusion of the right subclavian artery. She has been maintained on dual antiplatelet therapy since July 2024. CTA of the head revealed a 2 mm aneurysm at the right M2 segment. I have reviewed all of the films from July 12 and January 10, [address] Castanon radiology. After reviewing all of the films, we believe: a. The vascular stenoses of the multiple arteries in the neck are about the same now as they were then with no significant change. The worst is the right internal carotid artery at the origin. b. The lesion in the right M2 branch is consistent with a 2 mm saccular aneurysm. It was likely present in July and is unchanged. In addition, it is seen on the MRA 01/10 (but blurred due to patient movement). c. There is no new stroke or PEDIATRIC NP vascular lesion. d. The tiny saccular aneurysm likely had nothing to do with the patient's symptoms/TIA She has higher risk of TIA and stroke due to decreased PEDIATRIC NP perfusion secondary to vascular stenoses, significant anemia, and pneumonia. The patient has a generalized sense of weakness likely due to condition (pneumonia) and significant anemia. There is no focal weakness or evidence of myopathy. The patient may have an early polyneuropathy present, which could affect her balance. Recommendations: 1. Continue dual antiplatelet therapy (75 mg clopidogrel and 81 mg aspirin) daily. I see no reason to switch this combination at this time 2. Patient is total cholesterol is less than 100. Normally I would recommend lowering her atorvastatin to 20, but with her significant vascular disease it is reasonable to keep at 40 mg daily. 3. Increase activity as able and she needs physical therapy for strength and gait improvement. 4. EMG and nerve conduction studies could be done as an outpatient if desired to further assess her weakness (neuropathy versus other). 5. Treat anemia as ablethis will help with her overall fatigue and weakness as well as help TIAs. Overall, I spent a total of 95 minutes with this case including review of records, review of CT and MRI films, direct evaluation the patient, report generation, and discussion of the case with the patient, RN, and Fernanda Moncada PA-C, at bedside, and Dr. Castanon, also including differential diagnosis and treatment options. 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 There was no evidence for metastatic disease. The patient received 6996 cGy at [facility], completed in February 2017. Apparently there was no surgical resection. There has been no recurrence of cancer since. Patient has a permanent trach. Unfortunately, over time, the patient developed postradiation changes in the neck and cervical vasculature. Patient was a longtime cigarette smoker with onset age 13 and quitting over 5 years ago. She has COPD chronic respiratory failure. Has coronary artery disease and peripheral arterial disease. In July of this year the patient was admitted with left-sided weakness. Consultation with Dr. Rubin, [facility] teleneurology, was performed. The patient's symptoms resolved. At that time, CT scan of the head showed no bleed or acute changes, CT angiography of the head was read as unremarkable, with no arterial narrowing or occlusion. CT angiography of the neck revealed severe and multiple vascular stenoses. The right common carotid was 95% as well as the proximal right internal carotid artery. There was severe stenosis in the left internal carotid arteries at the origin with other stenoses more distally in the left ICA. There was an occlusion of the right subclavian and right proximal vertebral artery. There was stenosis of the origin of the left vertebral, distal left subclavian, and left axillary arteries. After consultation with neurology and vascular surgery (Dr. Jaime, [facility]), the patient was put on dual antiplatelet therapy with 75 mg clopidogrel and 81 mg aspirin. She has been on this since. The patient has had some GI bleeding recently and has iron deficiency anemia. The patient has been having generalized weakness and fatigue on and off for months. This waxes and wanes. She also has had urinary tract infection. January 09, apparently patient leaves over to pick something off the floor but fell off the couch hitting the top of her head. She went to the emergency room. On January 09 at 1110, temperature was 37.0, pulse 72, respiratory rate 20, blood pressure 127/38, and O2 saturation 100% On neurologic examination she was felt to be "not weak". CBC showed a hemoglobin of 8.8 and hematocrit of 27.6. CHEM profile, urinalysis, and [employer] were all unremarkable. Patient was felt to have a pneumonia and has been treated with antibiotics. On January 10 around 1700 (this was witnessed by the patient's daughter who was present in the room today and gives a good history) patient had the sudden onset of left facial droop (patient and daughter confirm left side), decreased ability to speak, illegible handwriting, and increased fatigue. All of the symptoms lasted minutes (by the time she went down for CAT scan and came back it was resolved CT scan of the head showed no acute changes. CT scan of the cervical spine showed no obvious bony issues or cord compression CT angiography of the neck showed "extensive vascular plaque most severe in the right carotid bulb with a likely greater than 90% significant stenosis". The report mentioned plaque in the carotids and vertebrals but not any significant stenosis other than the right carotid bulb. CT angiography of the head showed a lesion in the proximal M2 branch of the right middle cerebral artery consistent with either thrombosis or a small saccular aneurysm. This was noted to be "1.8 mm". MR angiography of the head was unremarkable with no evidence of aneurysm. MRI of the brain showed no acute stroke and showed moderate generalized atrophy and moderate old small vessel ischemic disease (including an old right caudate lacunar). I reviewed these films. Today the patient has no complaint of pain, headache, blurry vision, double vision, dizziness, speech or writing problems, weakness, numbness, or other symptoms (she feels like she is back to her typical self). Blood pressure was 146/68 with a pulse of the approximately 115 and she is afebrile. Today, CBC showed a hemoglobin of 7.5 and hematocrit of 22.5. CHEM profile was largely unremarkable although calcium was 8.4. Total cholesterol was 98 and triglycerides 75. Hemoglobin A1c was 5.3. Allergies Allergy/AdvReac Type Severity Reaction Status Date / Time bee venom protein (honey bee) Allergy Severe Anaphylaxis Verified 01/09/25 15:11 latex Allergy Intermediate Rash Verified 01/09/25 15:11 oxycodone [From Percocet] Allergy Intermediate PER Verified 01/09/25 15:11 GMG--GETS LOOPY. Home Medications Medication Instructions Recorded Confirmed Type buspirone 5 mg tablet 5 mg PO BID 10/31/19 01/09/25 History aspirin 81 mg tablet,delayed 81 mg PO QAM 01/23/21 01/09/25 History release sodium chloride 0.65 % nasal spray 2 spray NA DIRECTED PRN 03/24/21 01/09/25 History aerosol (Saline Mist) Congestion budesonide 160 mcg-glycopyr 9 2 inh inhalation [facility] 12/17/22 01/09/25 History mcg-formot 4.8 mcg/actuation HFA inhaler (Breztri Aerosphere) levothyroxine 75 mcg tablet 75 mcg PO DAILYBB 07/12/24 01/09/25 History clopidogrel 75 mg tablet 75 mg PO QAM #30 tabs 07/14/24 01/09/25 Rx acetaminophen 160 mg/5 mL (5 mL) 650 mg PO Q6H PRN pain/fever 10/13/24 01/09/25 History oral solution cyanocobalamin (vitamin B-12) 500 500 mcg PO Q OTHER DAY 10/13/24 01/09/25 History mcg tablet (Vitamin B-12) lidocaine 4 % topical patch 1 patch topical DAILY PRN Pain 10/13/24 01/09/25 History ipratropium 0.5 mg-albuterol 3 mg 3 ml NEB Q2H PRN shortness of 10/22/24 01/09/25 Rx (2.5 mg base)/3 mL nebulization breath or wheezing #180 mL soln sodium chloride 3 % for 3 ml inhalation Q6H PRN thickened 10/22/24 01/09/25 Rx nebulization secretions 30 days #120 mL acetylcysteine 100 mg/mL (10 %) 4 ml inhalation AMHS 11/12/24 01/09/25 History solution atorvastatin 40 mg tablet 40 mg PO HS 11/12/24 01/09/25 History ipratropium 20 mcg-albuterol 100 2 puff inhalation Q6H PRN Wheezing 11/12/24 01/09/25 History mcg/actuation mist for inhalation (Combivent Respimat) isosorbide mononitrate 10 mg tablet 10 mg PO BID #60 tabs 11/17/24 01/09/25 Rx venlafaxine 75 mg tablet 75 mg PO TIDM #90 tabs 11/17/24 01/09/25 Rx bumetanide 1 mg tablet 1 mg PO QAM 12/01/24 01/09/25 History metoprolol tartrate 50 mg tablet 50 mg PO PM #30 tabs 12/04/24 01/09/25 Rx baclofen 10 mg tablet 2.5 mg (1/4 x 10 mg) PO BID PRN 12/13/24 01/09/25 Rx Muscle spasm #15 tabs gabapentin 100 mg capsule 100 mg PO BID #60 caps 12/13/24 01/09/25 Rx diclofenac sodium 1 % topical gel 4 g EXT BID PRN Apply to affected 01/09/25 01/09/25 History (Ananya Arthritis Pain) joint for joint pain metoprolol tartrate 50 mg tablet 75 mg PO QAM 01/09/25 01/09/25 History Patient History Medical History Cecal ulcer GI bleed Tracheostomy dependent Pneumonia Encounter for pre-operative examination Chronic hypoxic respiratory failure, on home oxygen therapy CAD (coronary artery disease) 2008 - LAD stent 2016 - LITTLE to mid LAD CHF (congestive heart failure) Labile hypertension Acute kidney injury superimposed on CKD 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 MONTENEGRO 2016 - ABN STRESS TEST - [facility] - NO STENTS/ANGIOPLASTY History of tonsillectomy and adenoidectomy Family History Daughter Family history of reaction to anesthesia SLOW TO WAKE Father Family hx of colon cancer Other Colon cancer No pertinent family history Social History (Updated 01/11/25 @ 11:12 by Sheng Chicas MD) Smoking Status: Former smoker Tobacco Type: Cigarettes Age Started Using Tobacco: 13; Age Quit Using Tobacco: 63; Cigarettes Per Day: 1-2; Second Hand Exposure: No; Do You Dip or Chew Tobacco: No; Hx Alcohol Use: No Hx Substance Use: No Preferred Language: Pakistani Communication Ability: Effective Whip Operator Required: No Beliefs That Will Affect Care: None marital status: Current Living Situation: Alone Current Living Situation Comment: daughte visits daily current occupational status: retired Feels Safe at Home: Yes Assistive Devices: Other Review of Systems Constitutional: no fever, no fatigue and no weakness Eyes: no diplopia, no eye pain and no worsening vision Ear, Nose, Mouth, Throat: no ear pain, no tinnitus, no hearing loss, no dizziness, no snoring, no hoarseness and no dysphagia Respiratory: + cough and + dyspnea Cardiovascular: no chest pain, no palpitations and no lightheadedness Gastrointestinal: no abdominal pain, no nausea and no vomiting Genitourinary: no dysuria, no urinary frequency and no urinary incontinence Musculoskeletal: no back pain, no neck pain, no radicular pain, no joint pain and no myalgia Integumentary: no rash and no lesions Neurologic: + generalized weakness; no gait abnormal ity, no localized weakness, no tingling, no numbness, no tremor(s), no abnormal movements, no headache(s), no abnormal speech, no confusion and no memory loss Psychiatric: no depression, no irritability, no anxiety, no difficulty concentrating, no confusion and no hallucinations Endocrine: no fatigue and no flushing Hematologic / Lymphatic: no easy bleeding and no easy bruising Allergy / Immunological: no urticaria and no problem reported Exam (Neuro) Physical Exam: The patient is right-handed. The patient is awake, alert, and attentive. Speech is without any obvious aphasia or dysarthria, but she talks through a tracheostomy tube. Mood is reasonable and affect is appropriate. Thought processes are reasonable for short-term memory with conversation. The discs are sharp with positive venous pulsations bilaterally. There are no exudates, hemorrhages, or blood vessel changes seen. Pupils are 4 mm bilaterally and reactive to light. Extraocular eye muscles are intact without nystagmus. Visual acuity and visual nugent seem normal grossly to confrontation. There are no deficits to sensation in the face in all 3 distributions of the fifth cranial nerve bilaterally. Corneal reflexes are positive bilaterally. Facial strength and symmetry was normal bilaterally. Hearing seems intact grossly to voice and finger rub bilaterally. Palate moves well without asymmetry. There is normal sternocleidomastoid and trapezius strength bilaterally. Tongue is midline with good strength bilaterally. Neck has a full range of motion without discomfort. There is a loud right carotid bruit in the mid anterior neck. There are no cranial or ocular bruits. Heart is without murmur. There is a regular rhythm and rate. Cervical, thoracic, and lumbar spine are nontender to palpation. Gait was not tested but stance sitting up was reasonable. With outstretched arms there is no drift. There are no resting, postural, or action tremors. There is no ataxia with finger to nose testing. There is good facility in the hands. No other abnormal involuntary movements are noted. Motor strength is 5/5 diffusely in the arms bilaterally including deltoids, biceps, triceps, brachioradialis, wrist flexors and extensors, project manager senior, and intrinsic hand muscles. Motor strength is 5/5 diffusely in the legs bilaterally including hip flexors, quadriceps, hamstrings, gastrocnemius, tibialis anterior, tibialis posterior, and Peroneii muscles bilaterally. Toe extensors are normal and there is good bulk in the extensor digitorum brevis muscles bilaterally. There is no proximal or focal weakness. The limbs have good tone without rigidity or spasticity. The patient is thin throughout particularly in distal muscles of the hands and feet Sensory examination is intact to touch and pin throughout all 4 limbs diffusely. Reflexes are 2/4 in the biceps, triceps, brachioradialis, and quadriceps tendons bilaterally. Achilles tendon reflexes are absent bilaterally. Toes are downgoing with plantar stimulation bilaterally. Peripheral pulses are present and of normal quality distally in all 4 limbs. There is no peripheral edema noted in the limbs. Results & Data Vital Signs (Past 12 Hours) Vital Signs Temp Pulse Pulse Resp BP BP Pulse Ox 01/11/25 08:01 36.4 C L 115 H 146/68 H 01/11/25 06:56 117 H 24 93 01/11/25 03:00 103/44 L 01/11/25 03:00 98 H 18 01/11/25 02:39 101 H 19 01/11/25 02:38 153/61 H 01/11/25 01:36 126 H 17 01/11/25 01:00 95 H 16 94 01/11/25 01:00 94/44 L 01/11/25 00:25 110 H 01/11/25 00:07 102/78 01/11/25 00:06 72/57 L 01/11/25 00:06 114 H 24 01/11/25 00:00 71/53 L 01/11/25 00:00 109 H 16 96 01/10/25 23:44 119/64 01/10/25 23:42 106 H 12 01/10/25 23:00 86/41 L 01/10/25 23:00 97 H 13 94 O2 Del Method O2 Flow Rate FiO2 01/11/25 08:01 01/11/25 06:56 Trach Collar 8 30 01/11/25 03:00 01/11/25 03:00 01/11/25 02:39 01/11/25 02:38 01/11/25 01:36 01/11/25 01:00 01/11/25 01:00 01/11/25 00:25 01/11/25 00:07 01/11/25 00:06 01/11/25 00:06 01/11/25 00:00 01/11/25 00:00 01/10/25 23:44 01/10/25 23:42 01/10/25 23:00 01/10/25 23:00 PG Care Time/CCT Total # of Minutes Spent Total Time Spent with Patient: Total time spent is greater than 50% in coordination of care (as documented) at patient's floor/unit and/or counseling patient: Coding Level of Care Code 42489 INT INP/OBS CARE 3/75MIN Diagnoses Carotid stenosis I65.23 Laterality: bilateral TIA (transient ischemic attack) G45.9 Weakness R53.1 Pneumonia J18.9 Laterality: unspecified laterality Lung location: unspecified part of lung Pneumonia type: due to unspecified organism Time Spent (min) 95 (1) Carotid stenosis Laterality: bilateral Qualified Code(s): I65.23 - Occlusion and stenosis of bilateral carotid arteries (4) Pneumonia Laterality: unspecified laterality Lung location: unspecified part of lung Pneumonia type: due to unspecified organism Qualified Code(s): J18.9 - Pneumonia, unspecified organism
[2025-01-11 12:53] VITALS: BP 118/62; PULSE 124; RESP 20; O2SAT 91
[2025-01-11 13:27] LABS: Hematocrit (blood only) 24.8 % (37.0-47.0); Hemoglobin 8.2 g/dl (12.0-16.0); Mean Corpuscular Hemoglobin 31.3 pg (25.0-34.0); Mean Corpuscular Volume 94.7 fL (80.0-100.0); Platelet Count 324 K/uL (130-400); RDW Standard Deviation 59.6 fL (36.4-46.3); Red Blood Count 2.62 M/uL (4.20-5.40); White Blood Count 8.41 K/ul (4.8-10.8)
[2025-01-11] MEDS ORDERED: STROKE PATIENT DISCHARGE STA (13:44)
--- NOTE | 2025-01-11 13:44 | Discharge Summary ---
"Discharge Summary Date of Service January 11, 2025 Principal Dx & Hospital Course #1 = Principal Diagnosis (1) TIA (transient ischemic attack): (2) Facial droop: (3) Chronic hypercapnia: (4) Pneumonia: (5) Anemia: (6) Weakness: (7) CAD (coronary artery disease): Plan #Concern for PNA | Chronic respiratory failure Vicki is a 69 y/o female with history of CAD s/p PCI, HTN, COPD, laryngeal cancer s/p tracheostomy with chronic respiratory failure on 4 L trach collar, hypothyroidism, PAD with right subclavian artery stenosis and EZIO, here with generalized weakness and fall from seated position. Initial workup without fracture from fall but CXR showing early PNA. CBC also showing worsening anemia. Patient was started on Bactrim given her history of stenotrophomonas, however sputum culture taken on admission was normal major. With the addition of Bactrim and her home medications patient's respiratory status improved and on her baseline oxygen. BioFire was negative, no leukocytosis and Pro-Kolton was neg ative on admission. The course of Bactrim was continued on discharge #TIA | Facial Droop - concern for stroke, abrupt onset 01/10 1700 with left sided facial droop, eye droop, inability to write and changes to vision. Stroke alert Called. reviewed with her she teleneurology, Dr. STYLES - concerns for stroke but also possible cord contusion with fall, TNK was not recommended given her high risk for GI bleeding. CT head - no acute findings. Head CTA showed a aneurysm in the right middle cerebral artery versus a thrombus. Neck CTA showed 90% stenosis of her right carotid bulb. Brain MRI was without acute infarct or ischemia but did show chronic lacunar infarcts. MRA head did not show any infarct. To complete the stroke workup she had a lipid panel and A1c that did not show diabetes and lipids are well-controlled. Neurology was consulted independently reviewed imaging and believes that vascular stenosis as same as prior. The lesion in the right M2 branch is an aneurysm and it was present in July. There is no stroke. Given her high risk recommend to continue on the high intensity statin and continue dual antiplatelet therapy. There was concern that a telemetry strip showed A-fib, I personally reviewed the strips and there were discernible P waves with QRS complexes that marched out on even rate. No other evidence of telemetry. Patient has no history of atrial fibrillation on telemetry during previous hospitalizations. This was likely sinus tachycardia as her metoprolol was held to try to increase her maps overnight. . #Anemia | hx of GI bleed - found to be iron deficient on prior admission. Has noticed darker stools but recently started on PO iron supplementation. BUN/Cr improved from prior. Has received venofer 12/13 & 12/17. FOBT was ordered but patient did not have a BM while here, which is reassuring. she did have a drop in her hemoglobin this morning to 7.8 which I believe is from hemodilution from the IV fluid she was given overnight. recheck this afternoon and hemoglobin improved to 8.2. Recommend holding aspirin until Wednesday - to lessen chance of GI bleed while attending her grandson's wedding and recommend recheck CBC within 1 week #Weakness- multifactorial with chronic deconditioning, early PNA, and anemia- 10 inpatient stays since August. Patient has refused going to rehab multiple times. continue protein supplementation 3 times daily. PT/OT recommended rehab however patient adamantly denies this as she states that she knows her body best and will not be able to tolerate rehab, is agreeable to home therapy and reports that she does her exercises on days when the therapist do not come. #CAD s/p PCI resume plavix as above. aspirin held - Plan to resume 01/15 and recheck CBC on the same day. Continue statin #Hypertension - daughter report episode of hypotension at home, worse with repositioning. Metoprolol was resumed. Imdur held with instructions to continue to check blood pressure at home and follow-up with the PCP #mental health - continue buspar, venlafaxine Dispo: home with home health and care of her family family updated at bedside 01/09 & 01/10 & 01/[address] Chicas Notes For Next Care Provider Check CBC and 4 days Restart aspirin in 4 days Medication Changes From Visit See medication list Admission HPI Per Admitting Provider Vicki is a 69 y/o female with history of CAD s/p PCI, HTN, COPD, laryngeal cancer s/p tracheostomy with chronic respiratory failure on 4 L trach collar, hypothyroidism, PAD with right subclavian artery stenosis and EZIO, here with generalized weakness. She bent down while trying to pick something off the floor while sitting on the couch and tumbled over and was unable to get back up. history is provided by patient and her caregiver. Reports that over the last few days patient has been getting weaker. Denies fevers at home, did have chills yesterday. Patient states that she takes her temperature every day. Overall her appetite has been good, eating much more than normal. Reports drinking boost 3 times a day. She has noticed increase in her secretions over the last few days. Family reports that they saw their PCP recently as a hospital follow-up had a chest x-ray and labs done and was told everything was okay. Daughter reports that she did not give her her blood pressure medications yesterday because her blood pressure was low and was worried about her blood pressure bottoming out. No recent medication changes. Patient wishes to be a full code. Discharge Exam General: NAD, VS as above, sitting up in bed appears well Resp: normal respiratory effort, Tracheostomy in place, lung sounds diminished throughout CV: well-perfused, tachycardic but regular Extremities: Moves all extremities, no edema. Neuro: A&O x3, no facial droop Discharge Plan Discharge Items Patient Disposition: Home - Home Health Services Reason For Visit: PNA, ANEMIA Discharge Diagnosis: TIA, anemia, Pneumonia Condition on Discharge: Fair Activity: As commented below Activity Comment: work with therapy to get stronger Weightbearing: Full weightbearing Non-emergency contact: Primary Care Provider Call non-emergency contact if: you have any medication questions, your symptoms worsen, your pain is not controlled and your temperature is above 101.5 Follow-up/Referrals: Paola Wilson MD [Primary Care Provider] - (follow up within one week ) Diet: Regular Diet Texture: Easy to Chew Addtl Attending Provider Instructions: Ms. Hardy, You were hospitalized after having worsening fatigue and a fall from your couch. Thankfully, there were no injuries from your fall. You were found to have early pneumonia and started on Bactrim and have progressed well. Unfortunately during your stay, you developed a facial droop and eye droop and a stroke alert was called. Thankfully, imaging did not reveal stroke but this event was a TIA or mini stroke. You were seen by neurology who recommended to continue dual antiplatelet therapy and your current cholesterol medicine. If you would like the EMG (nerve studies done) can ask your PCP about referral to neurology. There were also concerns about a GI bleed while you were here. You were given another dose of IV venofer to help boost your counts. You were unable to have a bowel movement, which is reassuring as usually blood make people have more frequent stools. We rechecked your hemoglobin on day of discharge and it had improved to 8.2. Recommend repeat labs with PCP/home health. Hold aspirin until you have these repeat labs drawn. I have held your imdur - you did not recieve it here and had lower blood pressures. Continue to monitor blood pressures at home and discuss with PCP if this should be resumed. Do not want to stop your metoprolol as that helps to control your heart rate as well. While PT/OT have recommended rehab, you have declined. Home health therapy has been arranged. Please continue to do you exercises at home. Activity: You can do normal everyday activities as your body allows. Take rest breaks if you feel tired. Do not overexert. Stop activity if you have pain, shortness of breath or feel dizzy. Follow-up appointments: Make an appointment with your primary care physician within one week of discharge. A copy of this summary will be sent to them. Every time you see your primary care physician, or any other doctor, bring your medication list, and a list of questions. CONTACT YOUR PRIMARY CARE PROVIDER if you experience any of the following: Shortness of breath or difficulty breathing Fevers or chills Feeling tired with normal activity or experiencing dizziness or fainting Difficulty following your treatment plan, or difficulty taking medications CALL 911 OR GO TO THE EMERGENCY DEPARTMENT if you experience any of the following: Severe abdominal pain or nausea/vomiting Severe chest pain, or chest pain that radiates (moves) to your jaw or arm Sudden, severe shortness of breath or difficulty breathing - bright red blood in stools Thank you for allowing us to participate in your care. Enjoy the ! For home health: Please draw CBC on 01/15 or 01/16 Pending Studies at Discharge: No Stand-Alone Forms: [facility], Smoking Cessation, Medications to Prevent Stroke Medications and DC Order Prescriptions: New sulfamethoxazole-trimethoprim 200-40 mg/5 mL Suspension 20 ml PO Q12 5 Days Qty: 200 0RF Continued buspirone 5 mg tablet 5 mg PO BID Rx Instructions: CRUSH ALL MEDS Saline Mist 0.65 % aerosol,spray 2 spray NA DIRECTED PRN (Reason: Congestion) Layla Aerosphere 160-9-4.8 mcg/actuation HFA aerosol inhaler 2 inh INHALATION [facility]HS ipratropium-albuterol 0.5 mg-3 mg(2.5 mg base)/3 mL Solution For Nebulization 3 ml NEB Q2H PRN (Reason: shortness of breath or wheezing) Qty: 180 0RF sodium chloride 3 % Solution For Nebulization 3 ml INHALATION Q6H PRN (Reason: thickened secretions) 30 Days Qty: 120 0RF levothyroxine 75 mcg tablet 75 mcg PO DAILYBB Rx Instructions: CRUSH ALL MEDS clopidogrel 75 mg Tablet 75 mg PO QAM Qty: 30 0RF Rx Instructions: CRUSH ALL MEDS lidocaine 4 % Adhesive Patch,Medicated 1 patch TOPICAL DAILY PRN (Reason: Pain) Rx Instructions: ON BACK FOR 12 HR. THEN REMOVE cyanocobalamin (vitamin B-12) [Vitamin B-12] 500 mcg Tablet 500 mcg PO Q OTHER DAY acetaminophen 160 mg/5 mL (5 mL) Solution 650 mg PO Q6H PRN (Reason: pain/fever) Patient Comments: PT HAS HARD TIME SWALLOWING PILLS Rx Instructions: CRUSH ALL MEDS acetylcysteine 100 mg/mL (10 %) solution 4 ml inhalation [facility]HS Combivent Respimat 20-100 mcg/actuation mist 2 puff INHALATION Q6H PRN (Reason: Wheezing) Rx Instructions: WITH SPACER atorvastatin 40 mg tablet 40 mg PO HS Rx Instructions: CRUSH ALL MEDS venlafaxine 75 mg tablet 75 mg PO TIDM Qty: 90 0RF Rx Instructions: CRUSH ALL MEDS take with food bumetanide 1 mg tablet 1 mg PO QAM Rx Instructions: CRUSH ALL MEDS metoprolol tartrate 50 mg Tablet 50 mg PO PM Qty: 30 0RF Rx Instructions: CRUSH ALL MEDS gabapentin 100 mg Capsule 100 mg PO BID Qty: 60 0RF Rx Instructions: CRUSH ALL MEDS baclofen 10 mg Tablet 2.5 mg PO BID PRN (Reason: Muscle spasm) Qty: 15 0RF Patient Comments: PRESCRIBED 10MG PO BID; PT TAKES 10MG DAILY PRN Rx Instructions: CRUSH ALL MEDS metoprolol tartrate 50 mg Tablet 75 mg PO QAM Rx Instructions: CRUSH ALL MEDS diclofenac sodium [Voltaren Arthritis Pain] 1 % gel 4 g EXT BID PRN (Reason: Apply to affected joint for joint pain) Rx Instructions: Please give tube from hospital Held aspirin 81 mg Tablet,Delayed Release (Dr/Ec) 81 mg PO QAM Hold Instructions: Provider's Order - until repeat labs Rx Instructions: CRUSH ALL MEDS isosorbide mononitrate 10 mg tablet 10 mg PO BID Qty: 60 0RF Hold Instructions: Provider's Order Rx Instructions: CRUSH ALL MEDS Discharge Orders: Discharge Order (Routine); Ordered 01/11/25 Ordered By: Fernanda Moncada Admission Data Admit Date/Time: 01/09/25 16:02 Attending Provider: Destiny Bishop Admit Provider: Salazar Montes De Oca Primary Care Provider: Paola Wilson Other Providers: [facility]; Sheng Chicas Other Interventions: Discharge Summary Assessment (RN) Last Done: 01/11/25 14:18 Hospital Stay Data Consultations 01/09/25 13:58 ED Decision to Admit Stat 01/11/25 09:38 Consult Neurology Routine Diagnostic Imagining Performed Cervical Spine CT 01/09/25 11:10 CT cervical spine wo con CT DOSE: 1803.77 mGy.cm CLINICAL HISTORY: 69 years-old Female with fall. Acute neck pain status post fall COMPARISON: CT soft tissue neck 12/06/2024 TECHNIQUE: Multiple axial CT images of the cervical spine were obtained without contrast. A dose lowering technique was utilized adhering to the principles of ALARA. FINDINGS: Demineralized appearance of bones with mild to moderate multilevel degenerative changes. Study is limited secondary to positioning with increased kyphotic curvature. There is no acute fracture or subluxation identified. Severe multilevel left-sided facet arthrosis. Mild dextroscoliosis. Tracheostomy cannula in place. Inflammatory stranding within the region of the glottis and upper esophageal sphincter again noted. Extensive atherosclerosis redemonstrated. Pulmonary emphysema with interlobular septal thickening at the lung apices. IMPRESSION: 1. No acute cervical spine fracture or subluxation identified. 2. Pulmonary emphysema with interlobular septal thickening which may represent interstitial pulmonary edema. 3. Tracheostomy cannula in place with unchanged nonspecific soft tissue thickening with mild inflammatory stranding within the region of the glottis and upper esophageal sphincter. 4. No fluid collections or pathologically enlarged lymph nodes. ACT 112: Negative or not required by law. The above report was generated using voice recognition software. It may contain grammatical, syntax or spelling errors. Electronically signed by: Cristopher Tai M.D. 01/09/2025 1:[address] 01/09/25 11:10 CT SCAN OF THE BRAIN WITHOUT IV CONTRAST CLINICAL HISTORY: Fall. COMPARISON STUDY: Head CT December 02, 2024. TECHNIQUE: Unenhanced axial CT scan of the brain was performed from the vertex to the skull base. A dose lowering technique was utilized adhering to the principles of ALARA. FINDINGS: This exam is mildly compromised given difficulty positioning related to exaggerated kyphosis of the cervical spine. However, no acute intracranial hemorrhage, midline shift or mass effect is present. Ventricular system is stable. Basal cisterns are patent. There are no extra-axial collections. Scattered extraaxial calcifications are unchanged. There are no calvarial fracture. There is a tiny left scalp contusion. IMPRESSION: 1. No acute intracranial findings. 2. Tiny left scalp contusion. No femoral fractures. ACT 112: Negative or not required by law. Electronically signed by: Ren Castanon M.D. 01/09/2025 1:28 PM Chest X-Ray 01/09/25 11:13 XR chest 1V portable CLINICAL HISTORY: weak COMPARISON STUDY: 12/16/2024 FINDINGS: Stable mild cardiomegaly without pulmonary vascular congestion. Tracheostomy tube tip is stable at the thoracic inlet. There is stable mild elevation of the left hemidiaphragm. There is interval mild stranding opacity at the right lung base. No other consolidation or pleural effusion. No pneumothorax. Stable old right rib fractures. IMPRESSION: Mild atelectasis versus early pneumonia right lung base. ACT 112: Negative or not required by law. Electronically signed by: Hung Pittman M.D. 01/09/2025 11:49 AM Shoulder X-Ray 01/09/25 11:32 XR shoulder RT min 2V routine CLINICAL HISTORY: r shoulder pain COMPARISON: Chest CT of 12/16/2024 and chest x-ray of 11/12/2024 FINDINGS: There is a stable old fracture distally at the right clavicle. No acute fracture or dislocation seen. There is narrowing of the subacromial space which can be seen with chronic rotator cuff injury. No significant degenerative change otherwise. IMPRESSION: 1. No acute fracture seen. 2. Stable old fracture distally of the right clavicle. ACT 112: Negative or not required by law. Electronically signed by: Hung Pittman M.D. 01/09/2025 1:[address] 01/10/25 17:16 CT head without contrast History: Neurodeficit Comparison: 12/02/2024 Technique: Using multidetector thin collimation helical acquisition technique, axial, coronal and sagittal CT images from the skull base to the vertex were obtained without intravenous contrast. Dose reduction techniques were achieved by using automatic exposure control and/or adjustment of mA and/or kV according to patient size and/or use of iterative reconstruction technique. Findings: No intracranial hemorrhage, mass-effect, or midline shift. The ventricles are proportionate to the cerebral sulci. The leigh to white matter differentiation of the cerebral hemispheres is preserved. The basal cisterns are patent. Moderate cerebral atrophy. The visualized paranasal sinuses are clear. Mastoid air cells are clear. Impression: No acute intracranial pathology. Electronically signed by Yrn Tran 01-10-2025 5:[address] 01/10/25 19:01 Exam(s): CT C SPINE EXAM: CT Cervical Spine Without Intravenous Contrast CLINICAL HISTORY: r/o cord contusion. TECHNIQUE: Axial computed tomography images of the cervical spine without intravenous contrast. CTDI is 59.16 mGy and DLP is 681.78 mGy-cm. Automated exposure control was utilized for the study. A dose lowering technique was utilized adhering to the principles of ALARA. COMPARISON: 01/09/2025 FINDINGS: Vertebrae: No acute fracture. Maintenance of height of the vertebral bodies. Unchanged 1.9 mm anterior subluxation of C3 on C4. Mild reversal of the normal cervical lordosis. Discs/spinal canal/neural foramina: Unchanged mild degenerative changes greatest from C3-4 through C5-6. Soft tissues: Prevertebral soft tissues are unremarkable. Atherosclerotic vascular calcifications. Redemonstrated tracheostomy tube. IMPRESSION: No acute post-traumatic abnormality. No significant change. CT can not assess for cord contusion. Recommend MRI of the cervical spine with contrast when clinically appropriate. Electronically signed by: Bonifacio Perez M.D. 01/10/25 21:43 PM Head CTA 01/10/25 19:03 CR Exam(s): CTA HEAD With Contrast IV Amt: 115 ml optiray 320 EXAM: CT Angiography Head With Intravenous Contrast CLINICAL HISTORY: stroke r/o. TECHNIQUE: Axial computed tomographic angiography images of the head with intravenous contrast. CTDI is 59.16 mGy and DLP is 681.78 mGy-cm. Automated exposure control was utilized for the study. A dose lowering technique was utilized adhering to the principles of ALARA. 3D and MIP reconstructed images were created and reviewed. CONTRAST: Patient received 115 ml optiray 320 of IV contrast COMPARISON: CT Brain 01-10-2025. FINDINGS: Right internal carotid artery: Mild calcified plaque at the cavernous internal carotid artery with intact distal runoff. No aneurysm. Right anterior cerebral artery: Unremarkable. No occlusion or significant stenosis. No aneurysm. Right middle cerebral artery: Calcification within the sylvian fissure adjacent to and possibly involving a trifurcation branch although no immediately adjacent thrombosed vessel is identified. 1.8 mm diameter possible saccular aneurysm of the right middle cerebral artery trifurcation versus thrombosis of a proximal M2 branch of the right middle cerebral artery (coronal series 701 small business representative 42, axial series 7 image 114 and sagittal series 702 image 30). No aneurysm. Right posterior cerebral artery: Unremarkable. No occlusion or significant stenosis. No aneurysm. Right vertebral artery: Severely hypoplastic. Left internal carotid artery: Mild calcified plaque at the cavernous internal carotid artery with intact distal runoff. No aneurysm. Left anterior cerebral artery: Unremarkable. No occlusion or significant stenosis. No aneurysm. Left middle cerebral artery: Unremarkable. No occlusion or significant stenosis. No aneurysm. Left posterior cerebral artery: Unremarkable. No occlusion or significant stenosis. No aneurysm. Left vertebral artery: Mild calcified plaque with intact distal runoff. Basilar artery: Unremarkable. No occlusion or significant stenosis. No aneurysm. 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 Recommend correlation to clinical symptoms. Communications: Call Doctor Above results Electronically signed by: Bonifacio Perez M.D. 01/10/25 21:57 PM Neck CTA 01/10/25 19:03 Exam(s): CTA NECK With Contrast IV Amt: 115 ml optiray 320 EXAM: CT Angiography Neck With Intravenous Contrast CLINICAL HISTORY: stroke r/o. TECHNIQUE: Routine carotid CT angiography protocol was performed with intravenous contrast. NASCET criteria using the distal ICAs for comparison were used for evaluation of stenoses. CTDI is 59.16 mGy and DLP is 681.78 mGy-cm. Automated exposure control was utilized for the study. A dose lowering technique was utilized adhering to the principles of ALARA. 3D and MIP reconstructed images were created and reviewed. CONTRAST: Patient received 115 ml optiray 320 of IV contrast COMPARISON: CT Cervical Spine 01-10-2025 FINDINGS: Examination limited by patient positioning. VASCULATURE: Right common carotid artery: Diffuse calcified plaque. No dissection. Right internal carotid artery: Severe stenosis with densely calcified plaque of likely greater than 90%, hemodynamically significant. Severe stenosis just beyond the carotid bulb. Diffuse calcified plaque with intact distal runoff. No dissection. Right external carotid artery: Atherosclerotic plaque. No occlusion. Right vertebral artery: Diffusely hypoplastic. No dissection. Left common carotid artery: Diffuse calcified plaque. No dissection. Left internal carotid artery: Moderate calcified plaque at the carotid bulb without a hemodynamically significant stenosis. Diffuse calcified plaque with intact distal runoff. No dissection. Left external carotid artery: Atherosclerotic plaque. No occlusion. Left vertebral artery: Diffuse calcified plaque with intact distal runoff. No dissection. Aortic Arch: Diffuse atherosclerotic plaque involving the visualized aortic arch and proximal great vessels including the brachiocephalic and bilateral subclavian arteries. NECK: Bones/joints: Degenerative changes of the spine. No acute fracture. Soft tissues: Unremarkable. Lung apices: Tracheostomy tube tip to the thoracic inlet. Diffuse interstitial prominence with septal thickening. CAROTID STENOSIS REFERENCE USING NASCET CRITERIA: % ICA stenosis = (1 - narrowest ICA diameter/diameter of distal cervical ICA) x 100. Mild - <50% stenosis. Moderate - 50-69% stenosis. Severe - 70-94% stenosis. Near occlusion - 95-99% stenosis. Occluded - 100% stenosis. IMPRESSION: Extensive vascular plaque most severe of the right carotid bulb with a likely greater than 90% hemodynamically significant stenosis. Electronically signed by: Bonifacio Perez M.D. 01/10/25 22:10 PM Brain MRI 01/10/25 22:17 EXAM: MR brain wo con CLINICAL HISTORY: CVA TECHNIQUE: Multisequential and multiplanar images of the brain were reviewed without contrast. COMPARISON: None, No prior MRI study. FINDINGS: Generalized parenchymal atrophy is appreciated. Scattered foci of increased T2/FLAIR signal abnormality are identified within the bilateral periventricular and subcortical white matter, which are most commonly associated with chronic small vessel ischemic disease. There is a chronic lacunar infarct in the body of the right caudate nucleus. No focal parenchymal lesions are seen. No intracranial hemorrhage, mass effect, midline shift, extra-axial collection, or hydrocephalus is identified. The ventricles, sulci, and basal cisterns are symmetric and normal in size and configuration. Diffusion-weighted sequences show no evidence of acute ischemic infarction. The midline structures, including the pituitary gland, corpus callosum, pineal region, and brainstem, are unremarkable. The craniovertebral junction is within normal limits. No calvarial abnormalities are identified. The paranasal sinuses and mastoid air cells are clear. Orbital structures are unremarkable. Appropriate flow voids are present in the visualized intracranial vessels. IMPRESSION: 1. No acute ischemia, space-occupying mass, or other acute intracranial pathology is demonstrated. 2. Chronic small vessel ischemic disease. 3. Diffuse cerebral atrophy. 4. Chronic lacunar infarct in the body of the right caudate nucleus. Electronically signed by Hunter Garcia 01-11-2025 03:33 AM Head MRA 01/10/25 22:17 EXAM: MR angio head wo con CLINICAL HISTORY: CVA TECHNIQUE: 3-D [id number] imaging of the intracranial circulation was performed without intravenous contrast. COMPARISON: None. FINDINGS: Suboptimal evaluation is possible due to motion artifact. There is good opacification of the distal portions of the internal carotid arteries, which appear widely patent. There is good opacification of the anterior and middle cerebral artery distributions bilaterally. There is no MRA evidence of intracranial aneurysm or stenosis within the resolution limits of the study. Limited evaluation of the posterior circulation demonstrates patency of the distal vertebral arteries and the basilar artery, with visualization of the posterior cerebral arteries bilaterally. IMPRESSION: Essentially unremarkable intracranial MR angiogram. Electronically signed by Hunter Garcia 01-11-2025 03:36 AM Pending Results Patient Have Any Pending Studies at Discharge: No Discharge Instructions Given to Patient (Per Discharging Provider) Ms. Hardy, Galdino were hospitalized after having worsening fatigue and a fall from your couch. Thankfully, there were no injuries from your fall. You were found to have early pneumonia and started on Bactrim and have progressed well. Unfortunately during your stay, you developed a facial droop and eye droop and a stroke alert was called. Thankfully, imaging did not reveal stroke but this event was a TIA or mini stroke. You were seen by neurology who recommended to continue dual antiplatelet therapy and your current cholesterol medicine. If you would like the EMG (nerve studies done) can ask your PCP about referral to neurology. There were also concerns about a GI bleed while you were here. You were given another dose of IV venofer to help boost your counts. You were unable to have a bowel movement, which is reassuring as usually blood make people have more frequent stools. We rechecked your hemoglobin on day of discharge and it had improved to 8.2. Recommend repeat labs with PCP/home health. Hold aspirin until you have these repeat labs drawn. I have held your imdur - you did not recieve it here and had lower blood pressures. Continue to monitor blood pressures at home and discuss with PCP if this should be resumed. Do not want to stop your metoprolol as that helps to control your heart rate as well. While PT/OT have recommended rehab, you have declined. Home health therapy has been arranged. Please continue to do you exercises at home. Activity: You can do normal everyday activities as your body allows. Take rest breaks if you feel tired. Do not overexert. Stop activity if you have pain, shortness of breath or feel dizzy. Follow-up appointments: Make an appointment with your primary care physician within one week of discharge. A copy of this summary will be sent to them. Every time you see your primary care physician, or any other doctor, bring your medication list, and a list of questions. CONTACT YOUR PRIMARY CARE PROVIDER if you experience any of the following: Shortness of breath or difficulty breathing Fevers or chills Feeling tired with normal activity or experiencing dizziness or fainting Difficulty following your treatment plan, or difficulty taking medications CALL 911 OR GO TO THE EMERGENCY DEPARTMENT if you experience any of the following: Severe abdominal pain or nausea/vomiting Severe chest pain, or chest pain that radiates (moves) to your jaw or arm Sudden, severe shortness of breath or difficulty breathing - bright red blood in stools Thank you for allowing us to participate in your care. Enjoy the wedding! For home health: Please draw CBC on 01/15 or 01/16 Supervising Physician Co-Signing Physician Notes PA Supervision Note: I did not personally see or examine the patient today, but I verified all solitario points of MISA Moncada's assessment and plan with the following exceptions/additions: None Total Time Total Time Spent Total Time Spent (In Minutes): Time spent day of discharge 60 minutes including direct patient care, medication reconciliation, documentation, review of labs and images, and coordination of care. Coding Level of Care Code 83765 INP/OBS DISCH >30 MIN Diagnoses TIA (transient ischemic attack) G45.9 Facial droop R29.810 Chronic hypercapnia R06.89 Pneumonia J18.1 Laterality: left Lung location: lower lobe of lung Pneumonia type: due to unspecified organism Anemia D64.9 Weakness R53.1 CAD (coronary artery disease) I25.10"
--- NOTE | 2025-01-11 14:11 | Pharmacy Report ---
- Date of Service January 11, 2025 - Pharmacy CVA/TIA Medication Review Medications to Prevent Stroke handout has been added to the patients discharge packet. Antiplatelet(s) * Aspirin 81 mg PO daily * Plavix 75 mg PO daily Cholesterol * High intensity statin: atorvastatin 40 mg daily DVT Prophylaxis * SCD knee Therapeutic Anticoagulation * No history of Afib/Aflutter noted Type 2 Diabetes * Patient does not have T2DM
== END 2025-01-11 16:12 | disposition home health service (06) | DRG 194 ==
LOC: ED 10:56 → SUATTDRO 16:02 → 2S 16:02 → 1E 01-10 20:03 → 2S 01-11 13:24